=== PATIENT | male | born 1960 | race Caucasian/White ===

== ENCOUNTER → 2017-06-12 | Outpatient (CLI) | payer BC ==
[~2017-06-12] MED LIST: AMLO-114 PO; BYS5 PO; LOSA1TAB38 PO; MULT-506 PO; PANT40TA PO; PRLSR20 PO
--- NOTE | 2017-06-12 13:32 | DIAGNOSTIC IMAGING REPORT ---
CHEST 2 VIEWS ROUTINE CLINICAL HISTORY: COUGH, HTN COMPARISON STUDY: No previous studies for comparison. FINDINGS: The cardiac and mediastinal contours are normal. There is no evidence of focal pulmonary consolidation. There is no evidence of failure. No pleural effusions are visualized.[ IMPRESSION: No active disease in the chest. Electronically signed by: Robert Fallon M.D. 06/12/2017 1:31 PM Dictated Date/Time: 06/12/2017 1:31 PM
== END | disposition home or self-care (01) ==
LOC: C.RAD 12:59
PROVIDERS: ATTEND Nurse Practitioner
DX: I10 Essential (primary) hypertension (principal); R05 Cough

== ENCOUNTER 2017-06-14 04:44 | Inpatient (IN) | payer BC ==
[~2017-06-14] VITALS: Ht 177.8 cm; Wt 112.1 kg
[~2017-06-14 04:44] MED LIST changes: -AMLO-114 PO; -PRLSR20 PO
[2017-06-14] MEDS ORDERED: SODIUM CHLORIDE 0.9% 1000ML 1,000 ML IV STA (04:54)
[2017-06-14] MEDS ORDERED: ONDANSETRON INJ 2 MG/ML 2 ML VIAL IV STA (04:54)
[2017-06-14] MEDS ORDERED: HYDROmorphone INJ 0.5 MG/0.5 ML SYR IV STA (04:54)
[2017-06-14] MEDS ORDERED: OPTIRAY 320 IV PRN (05:00)
[2017-06-14] MEDS ORDERED: PRLSR20 PO (05:10)
[2017-06-14] MEDS ORDERED: AMLO-114 PO (05:11)
[2017-06-14 05:29] LABS: BASO % 0.2 %; BASO ABS # 0.02 K/uL (0-0.2); COMPLETE YES; EOS % 0.8 %; HEMATOCRIT 45.8 % (42-52); IG% 0.1 %; LYMPH % 17.9 %; LYMPH ABS # 1.61 K/uL (1.2-3.4); MEAN CELL VOLUME 88.2 fL (80-100); MEAN CORPUSCULAR HEMOGLOBIN 31.4 pg (25-34); MEAN CORPUSCULAR HGB CONC 35.6 g/dl (32-36); MEAN PLATELET VOLUME 9.3 fL (7.4-10.4); MONO % 9.6 %; NEUT % 71.4 %; PLATELET COUNT 253 K/uL (130-400); RED BLOOD COUNT 5.19 M/uL (4.7-6.1); WHITE BLOOD COUNT 8.98 K/uL (4.8-10.8)
[2017-06-14 05:30] LABS: URINE APPEARANCE CLEAR (CLEAR); URINE BILIRUBIN NEG (NEG); URINE COLOR DK YELLOW; URINE NITRITE NEG (NEG); URINE SPECIFIC GRAVITY 1.027 (1.000-1.030); UROBILINOGEN NEG (NEG); ZZUR CULT IF INDIC CLEAN CATCH NO
[2017-06-14 05:36] LABS: MANUAL MICROSCOPIC REQUIRED? NO; REVIEW REQ? NO
[2017-06-14 05:48] LABS: BUN/CREATININE RATIO 21.1 (10-20); CALCIUM 9.2 mg/dl (8.5-10.1); CREATININE 1.02 mg/dl (0.60-1.40); MAGNESIUM 2.5 mg/dl (1.8-2.4); POTASSIUM 3.7 mmol/L (3.5-5.1)
--- NOTE | 2017-06-14 06:29 | EMERGENCY ROOM VISIT NOTE ---
History Report prepared by Karol: Kayce Jacques Under the Supervision of: Dr. Sirena Escalera M.D. First contact with patient: 04:50 Chief Complaint: ABDOMINAL PAIN Stated Complaint: SEVERE PAIN IN ABDOMEN- FULL FEELING History of Present Illness The patient is a 57 year old male who presents to the Emergency Room with complaints of persistent abdominal pain starting yesterday. He describes the pain as a pressure. It started yesterday morning. He is passing gas and belching. He feels like his stomach is not emptying. He induced vomiting 3 times yesterday. His last bowel movement was diarrhea yesterday. He denies any bloody stools. He notes that he recently finished a course of antibiotics for pneumonia. His coughing is improved, but he is still having periodic coughing fits. His cough is productive of a thick white sputum. He notes that he got his flu shot 2 days ago. He had a cholecystectomy at age 26. He denies any history of pancreatitis or diverticulitis. He admits to occasional alcohol use. He has had a colonoscopy in the past 6 months which showed a couple small polyps. Source of History: patient Onset: yesterday Position: abdomen Quality: pressure Timing: other (persistent) Associated Symptoms: + cough, + vomiting, + diarrhea, No hematochezia Note: Pt reports belching, passing gas. Review of Systems See HPI for pertinent positives & negatives. A total of 10 systems reviewed and were otherwise negative. Past Medical & Surgical Medical Problems: (1) Cholecystectomy (2) ESOPHAGEAL REFLUX (3) GOUT NOS (4) HYPERTENSION NOS Family History Cancer Hypertension Social History Smoking Status: Never Smoker Marital Status: Housing Status: lives with family Occupation Status: employed Current/Historical Medications Scheduled Amlodipine (Norvasc), 10 MG PO DAILY Losartan Potassium (Cozaar), 100 MG PO DAILY Omeprazole (Prilosec), 40 MG PO DAILY Allergies Coded Allergies: Allopurinol (Verified Adverse Reaction, Unknown, Elevated liver panels., 06/14/17) Morphine (Verified Adverse Reaction, Unknown, slows heart rate, 06/14/17) Physical Exam Vital Signs Date Time Temp Pulse Resp B/P (MAP) Pulse Ox O2 Delivery O2 Flow Rate FiO2 06/14/17 07:02 81 16 131/69 97 Room Air 06/14/17 06:13 80 16 142/82 95 Room Air 06/14/17 05:13 89 06/14/17 04:47 37.2 104 18 162/108 96 Room Air Physical Exam Vital signs reviewed. General: Well-appearing male, in no significant distress. HEENT: No scleral icterus, PERRLA, neck supple. Atraumatic. Cardiovascular: Regular rate and rhythm, no extra sounds. Pulmonary: Clear to auscultation bilaterally, normal work of breathing. Abdomen: Soft, nontender, distended, positive tympany, positive bowel sounds. Musculoskeletal: Atraumatic, no peripheral edema. Neurologic: Patient awake alert and oriented x 3 Skin: Warm, dry, no rash Medical Decision & Procedures ER Provider Diagnostic Interpretation: Radiology results as stated below per my review and [facility] radiologist interpretation: CT Abdomen & Pelvis with Contrast: Findings consistent with small bowel obstruction. Multiple mildly dilated loops of small bowel with air-fluid levels. Gradual transition to decompressed distal small bowel in mid lower abdomen where there is mild bowel wall thickening. Small amount of free fluid. No free air. Focal region of mild left basilar nodularity measure up to 4 mm, likely infectious/inflammatory. Post cholecystectomy. Mild common bile duct dilatation which may be physiologic post cholecystectomy. Renal hypodensities, likely cysts. Mild left renal scarring. Colonic diverticulosis without evidence of acute diverticulitis. Appendix is normal in caliber. Fat filled umbilical hernia. No acute osseous finding. Laboratory Results Test 06/14/17 05:00 Urine Color DK YELLOW Urine Appearance CLEAR (CLEAR) Urine pH 5.0 (4.5-7.5) Urine Specific Adrian 1.027 (1.000-1.030) Urine Protein NEG (NEG) Urine Glucose (UA) NEG (NEG) Urine Ketones TRACE (NEG) Urine Occult Blood NEG (NEG) Urine Nitrite NEG (NEG) Urine Bilirubin NEG (NEG) Urine Urobilinogen NEG (NEG) Urine Leukocyte Esterase NEG (NEG) Magnesium Level 2.5 mg/dl (1.8-2.4) Total Bilirubin 0.6 mg/dl (0.2-1) Direct Bilirubin 0.1 mg/dl (0-0.2) Aspartate Amino Transf (AST/SGOT) 20 U/L (15-37) Alanine Aminotransferase (ALT/SGPT) 56 U/L (12-78) Alkaline Phosphatase 122 U/L (45-117) Total Protein 7.8 gm/dl (6.4-8.2) Albumin 4.2 gm/dl (3.4-5.0) Lipase 81 U/L (73-393) Laboratory results per my review. Medications Administered Medications (Trade) Dose Ordered Sig/Gilbert Route Start Time Stop Time Status Last Admin Dose Admin Sodium Chloride 1,000 ml @ 125 mls/hr Q8H STAT IV 06/14/17 04:54 06/14/17 10:11 DC 06/14/17 05:07 125 MLS/HR Ondansetron HCl (Zofran Inj) 4 mg NOW STAT IV 06/14/17 04:54 06/14/17 04:57 DC 06/14/17 05:08 4 MG Hydromorphone HCl (Dilaudid Inj) 0.5 mg NOW STAT IV 06/14/17 04:54 06/14/17 04:57 DC 06/14/17 05:09 0.5 MG Metoclopramide HCl (Reglan Inj) 10 mg NOW STAT IV 06/14/17 06:43 06/14/17 06:44 DC 06/14/17 06:59 10 MG ED Course 0451: Past medical records reviewed. The patient was evaluated in room A10. A complete history and physical examination was performed. 0454: Dilaudid Inj 0.5 mg IV, Zofran Inj 4 mg IV, NSS 1000 ml @ 125 mls/hr IV. 0643: Reglan Inj 10 mg IV. 0705: Upon reevaluation, the patient is resting comfortably. I discussed laboratory and radiographic results with him. He verbalized agreement of the treatment plan. The patient will be evaluated for further management and care. 0724: I reviewed the patient's case with [place]. Garza, [facility]. He will evaluate the patient for further management. Medical Decision Differential diagnosis: Etiologies such as appendicitis, diverticulitis, PUD, biliary pathology, UTI, pancreatitis, obstruction, mesenteric ischemia, aortic pathology, infections, inflammatory bowel disease, renal colic, as well as others were entertained. This patient was evaluated and appeared to be in no significant distress. IV access was obtained and laboratory work was drawn. Patient was hydrated with normal saline solution. He was given IV Dilaudid and Zofran for his discomfort. Physical examination is consistent with a distended abdomen and positive tympany. CT scan abdomen and pelvis is consistent with a small bowel obstruction. There appears to be a distended stomach. NG tube was placed to low intermittent wall suction. KUB x-ray confirms placement in the stomach. Patient was given IV Reglan. Laboratory work is fairly unrevealing. The patient's case was discussed with Dr. Garza of the hospitalist service. He' ll be evaluated for further management. Patient and are aware of plan and agree. Medication Reconcilliation Current Medication List: was personally reviewed by me Blood Pressure Screening Patient's blood pressure: Elevated blood pressure Blood pressure disposition: Elevated BP felt to be situational Consults Time Called: [phone] Consulting Physician: Dr. Garza, [facility] [place] Returned Call: [phone] I reviewed the patient's case with him. He will evaluate the patient for further management. Impression Primary Impression: SBO (small bowel obstruction) Scribe Attestation The scribe's documentation has been prepared under my direction and personally reviewed by me in its entirety. I confirm that the note above accurately reflects all work, treatment, procedures, and medical decision making performed by me. Departure Information Dispostion Being Evaluated By Hospitalist Referrals Tona Donahue CRNP (PCP) Patient Instructions My [facility]
[2017-06-14] MEDS ORDERED: METOCLOPRAMIDE HCL INJ 5 MG/ML 2 ML VIAL IV STA (06:43)
--- NOTE | 2017-06-14 07:07 | DIAGNOSTIC IMAGING REPORT ---
CT ABD/PELVIS IV CONTRAST ONLY CLINICAL HISTORY: Abdominal pain and distention COMPARISON STUDY: 07/25/2013 TECHNIQUE: Following the IV administration of 120 mL of Optiray-320, CT scan of the abdomen and pelvis was performed from the lung bases to the proximal femurs. Images are reviewed in the axial, sagittal, and coronal planes. IV contrast was administered without complication. A dose lowering technique was utilized adhering to the principles of ALARA. CT DOSE: 1271.66 mGy.cm FINDINGS: Lower chest: There are mild dependent atelectatic changes. There are tree-in-bud opacities within the left lower lobe, likely secondary to a bronchiolitis. Liver: There is mild hepatic steatosis. No focal masses are visualized. Gallbladder: Surgically absent Spleen: Normal in size and attenuation. Pancreas: Unremarkable. Adrenal glands: Unremarkable. Kidneys: There is a 21 mm left renal hypodensity and 14 mm right renal hypodensity. These statistically represent cysts. Bowel: There are mildly dilated fluid-filled small bowel loops. The distal ileum is of normal caliber. There is minimal small bowel wall thickening at the site of transition. The findings are consistent with a mild partial small bowel obstruction. There is a small amount of fluid in the region the right paracolic gutter. There are scattered colonic diverticula present. There is no acute diverticulitis. There is no evidence of acute appendicitis. Peritoneum: There is minimal free pelvic fluid. No free air is visualized. There is a fat-containing umbilical hernia. Vasculature: The abdominal aorta is normal in course and caliber. Adenopathy: None. Pelvic viscera: The bladder, and pelvic viscera are unremarkable. Skeletal structures: No destructive osseous lesions are seen. IMPRESSION: 1. Mildly dilated fluid-filled small bowel loops with a distal transition zone. This is indicative of a partial small bowel obstruction. There is mild small bowel wall thickening at the site of transition, likely secondary to a nonspecific enteritis. 2. Diverticulosis. No evidence of acute diverticulitis 3. Normal appendix 4. Fat-containing umbilical hernia 5. Small amount of free fluid 6. Tree-in-bud opacities within the left lower lobe, likely infectious/inflammatory Electronically signed by: Robert Fallon M.D. 06/14/2017 7:06 AM Dictated Date/Time: 06/14/2017 6:57 AM
[2017-06-14] MEDS ORDERED: ONDANSETRON INJ 2 MG/ML 2 ML VIAL IV PRN (08:00)
--- NOTE | 2017-06-14 08:23 | DIAGNOSTIC IMAGING REPORT ---
KUB HISTORY: NGT placement COMPARISON: None. FINDINGS: Nasogastric tube terminates in the proximal stomach. Multiple mildly distended loops of small bowel are again noted within the abdomen. Contrast within the renal collecting systems due to the recent CT examination. Cholecystectomy. No renal calculi. No ureteral calculi. No pneumoperitoneum or pneumatosis. IMPRESSION: 1. Nasogastric tube terminates in the stomach. 2. Persistent small bowel obstruction pattern. Electronically signed by: Marco A Yee M.D. 06/14/2017 8:22 AM Dictated Date/Time: 06/14/2017 8:21 AM
[2017-06-14] MEDS: SODIUM CHLORIDE 0.9% 1000ML 1,000 ML IV SCH ×2 (08:49→18:18)
--- NOTE | 2017-06-14 09:03 | History and Physical ---
History & Physical Date & Time of Service: Jun 14, 2017 at 08:54 Chief Complaint: Severe Pain In Abdomen- Full Feeling Primary Care Physician: Tona Donahue CRNP History of Present Illness Source: patient, spouse () Pt is a 57 yo male who presents to the ER with complaints of persistent abdominal pain starting two night ago. Pt states worsening distention, passing gas and belching continuously yesterday. He states to provide relief, he induced vomiting by sticking his fingers down his throat. He states his last bowel movement was yesterday and was soft in nature. Pt does have hx of cholecystecomy when he was 26 yo. He notes he finished course of antibx for a PNA couple week s ago and also hacing his flu shot 2 days ago. Pt has past medical hx of HTN, gout. He has had a colonoscopy in the past 6 months which showed a couple small polyps. Past Medical/Surgical History Medical Problems: (1) Cholecystectomy Status: Resolved (2) ESOPHAGEAL REFLUX Status: Chronic (3) GOUT NOS Status: Chronic (4) HYPERTENSION NOS Status: Chronic Family History Cancer Hypertension Social History Smoking Status: Never Smoker Marital Status: Occupational Status: employed Immunizations History of Influenza Vaccine: Yes Influenza Vaccine Date: Feb 22, 2013 History of Tetanus Vaccine?: Yes Tetanus Immunization Date: Jul 25, 2005 History of Pneumococcal: No History of Hepatitis B Vaccine: No Multi-Drug Resistant Organisms History of MDRO: No Allergies Coded Allergies: Allopurinol (Verified Adverse Reaction, Unknown, Elevated liver panels., 06/14/17) Morphine (Verified Adverse Reaction, Unknown, slows heart rate, 06/14/17) Home Medications Scheduled Amlodipine (Norvasc), 10 MG PO DAILY Losartan Potassium (Cozaar), 100 MG PO DAILY Omeprazole (Prilosec), 40 MG PO DAILY Review of Systems Constitutional: No fever, No chills, No sweats, No weakness, No fatigue Respiratory: No cough, No sputum, No wheezing, No shortness of breath, No dyspnea on exertion, No dyspnea at rest Cardiovascular: No chest pain, No orthopnea, No PND, No edema Abdomen: + nausea, No pain, No vomiting, No diarrhea, No constipation Musculoskeletal: No joint pain, No muscle pain, No calf pain Genitourinary - Male: No hematuria, No dysuria, No urinary frequency, No urinary urgency Neurologic: No memory loss, No paralysis, No weakness, No numbness/tingling Psychiatric: No depression symptoms, No anhedonism, No anxiety, No insomnia Endocrine: No fatigue, No excessive thirst Hematologic / Lymphatic: No abnormal bleeding/bruising, No clotting problems Integumentary: No rash, No itch Allergic / Immunologic: No environmental allergies, No seasonal allergies Physical Exam Vital Signs Date Time Temp Pulse Resp B/P (MAP) Pulse Ox O2 Delivery O2 Flow Rate FiO2 06/14/17 08:50 76 16 164/104 94 Room Air 06/14/17 07:02 81 16 131/69 97 Room Air 06/14/17 06:13 80 16 142/82 95 Room Air 06/14/17 05:13 89 06/14/17 04:47 37.2 104 18 162/108 96 Room Air General Appearance: WD/WN, no apparent distress Head: normocephalic, atraumatic Eyes: normal inspection, PERRL, EOMI, sclerae normal Neck: supple, no adenopathy, thyroid normal, no JVD Respiratory/Chest: chest non-tender, lungs clear, normal breath sounds, no respiratory distress Cardiovascular: regular rate, rhythm, no edema, no gallop, no JVD Abdomen/GI: normal bowel sounds, non tender, no pulsatile mass, + distended Back: normal inspection, no CVA tenderness, no muscle spasm, normal range of motion Neurologic/Psych: no motor/sensory deficits, alert, normal mood/affect, oriented x 3 Skin: normal color, warm/dry, no rash Lymphatic: no adenopathy Diagnostics Laboratory Results Results Past 24 Hours Test 06/14/17 05:00 Range/Units White Blood Count 8.98 4.8-10.8 K/uL Red Blood Count 5.19 4.7-6.1 M/uL Hemoglobin 16.3 14.0-18.0 g/dL Hematocrit 45.8 42-52 % Mean Corpuscular Volume 88.2 80-100 fL Mean Corpuscular Hemoglobin 31.4 25-34 pg Mean Corpuscular Hemoglobin Concent 35.6 32-36 g/dl Platelet Count 253 130-400 K/uL Mean Platelet Volume 9.3 7.4-10.4 fL Neutrophils (%) (Auto) 71.4 % Lymphocytes (%) (Auto) 17.9 % Monocytes (%) (Auto) 9.6 % Eosinophils (%) (Auto) 0.8 % Basophils (%) (Auto) 0.2 % Neutrophils # (Auto) 6.41 1.4-6.5 K/uL Lymphocytes # (Auto) 1.61 1.2-3.4 K/uL Monocytes # (Auto) 0.86 0.11-0.59 K/uL Eosinophils # (Auto) 0.07 0-0.5 K/uL Basophils # (Auto) 0.02 0-0.2 K/uL RDW Standard Deviation 42.7 36.4-46.3 fL RDW Coefficient of Variation 13.2 11.5-14.5 % Immature Granulocyte % (Auto) 0.1 % Immature Granulocyte # (Auto) 0.01 0.00-0.02 K/uL Urine Color DK YELLOW Urine Appearance CLEAR CLEAR Urine pH 5.0 4.5-7.5 Urine Specific Danese 1.027 1.000-1.030 Urine Protein NEG NEG Urine Glucose (UA) NEG NEG Urine Ketones TRACE NEG Urine Occult Blood NEG NEG Urine Nitrite NEG NEG Urine Bilirubin NEG NEG Urine Urobilinogen NEG NEG Urine Leukocyte Esterase NEG NEG Sodium Level 142 136-145 mmol/L Potassium Level 3.7 3.5-5.1 mmol/L Chloride Level 106 98-107 mmol/L Carbon Dioxide Level 27 21-32 mmol/L Anion Gap 9.0 3-11 mmol/L Blood Urea Nitrogen 22 7-18 mg/dl Creatinine 1.02 0.60-1.40 mg/dl Est Creatinine Clear Calc Drug Dose 101.4 ml/min Estimated GFR () 94.8 Estimated GFR (Non- 81.8 BUN/Creatinine Ratio 21.1 10-20 Random Glucose 146 70-99 mg/dl Calcium Level 9.2 8.5-10.1 mg/dl Magnesium Level 2.5 1.8-2.4 mg/dl Total Bilirubin 0.6 0.2-1 mg/dl Direct Bilirubin 0.1 0-0.2 mg/dl Aspartate Amino Transf (AST/SGOT) 20 15-37 U/L Alanine Aminotransferase (ALT/SGPT) 56 12-78 U/L Alkaline Phosphatase 122 45-117 U/L Total Protein 7.8 6.4-8.2 gm/dl Albumin 4.2 3.4-5.0 gm/dl Lipase 81 73-393 U/L Impression Assessment and Plan Pt is a 57 yo male with hx of gout, HTN who presents with 2 day hx of abdominal distention, belching, nausea Partial SBO likely related to adhesions from open cholecystectomy. Will admit to med/surg floor Keep NPO at this time Start on IVF NS at 100 cc/hr Consult general surg for further recs Pt aware may need NG tube if worsening sx KUB in AM Gout Hold Uloric at this time HTN Controlled Hold meds at this time GI ppx with IV protonix 40 mg daily DVT ppx with SCDs Pt is FULL CODE VTE Prophylaxis VTE Risk Assessment Done? Y/N: Yes Risk Level: Moderate
[2017-06-14 09:50] VITALS: BP 151/98; PULSE 77; TEMP 36.8; O2SAT 94
[2017-06-14 10:01] VITALS: BP 151/98; PULSE 77; TEMP 36.8; Ht 177.8 cm; Wt 112.1 kg
[2017-06-14] MEDS: PANTOprazole INJ 40 MG in SYRINGE 0 ML IV SCH (10:52)
[2017-06-14] MEDS ORDERED: KETOROLAC TROMETHAMINE 15 MG/ML VIAL IM PRN (11:15)
[2017-06-14] MEDS ORDERED: NURSING VERBAL MED ORDER ONE ×2 (11:30→22:15)
[2017-06-14] MEDS: KETOROLAC TROMETHAMINE 15 MG/ML VIAL IV. PRN ×2 (11:39→22:20)
--- NOTE | 2017-06-14 12:12 | Medical Consult ---
Consultation Date of Consultation: Jun 14, 2017. Attending Physician: Reason for Consultation: Partial Small Bowel Obstruction History of Present Illness 57-year-old male with past medical history significant for Hypertension, Gout, Esophageal Reflux presented to [facility] ED with 2 day history of severe abdominal pain. Patient states that the abdominal continued to worsen at home- developed a very full sensation. Pt decided to induce vomiting at home which did not seem to help with his symptoms. He did have a bowel movement yesterday, which he reports was soft. His last meal was yesterday at 1AM. He reports that he had a colonoscopy roughly 6 months ago - per pt had a few small polyps removed. He denies nausea currently. Reports that abdominal pain has improved since presenting to ED. Patient recently completed course of antibiotics for PNA. Patient was previously seen by GI during a hospital admission in Jun 2013 for possible gastric outlet obstruction. During that stay patient had NG tube placed and an EGD performed by Dr. Freeman that showed mild esophagitis, retained food residue in stomach, but normal gastric lining and normal duodenum. No evidence of obstruction, stricture or mass. Past Medical/Surgical History 1. Small Bowel Obstruction 2. Esophageal Reflux 3. Gout 4. Hypertension Surgical History 1. Cholecystectomy at 26 years of age. Family History Cancer Hypertension Social History Smoking Status: Never Smoker Smokeless Tobacco Use: Unknown Marital Status: Housing Status: lives with family Occupation Status: employed Allergies Coded Allergies: Allopurinol (Verified Adverse Reaction, Unknown, Elevated liver panels., 06/14/17) Morphine (Verified Adverse Reaction, Unknown, slows heart rate, 06/14/17) Current Inpatient Medications Current Inpatient Medications Medications (Trade) Dose Ordered Sig/Gilbert Route Start Time Stop Time Status Last Admin Dose Admin Sodium Chloride 1,000 ml @ 125 mls/hr Q8H STAT IV 06/14/17 04:54 06/14/17 12:53 06/14/17 05:07 125 MLS/HR Ioversol (Optiray 320) 100 ml UD PRN IV 06/14/17 05:00 06/18/17 04:59 Ondansetron HCl (Zofran Inj) 4 mg Q6H PRN IV 06/14/17 08:00 07/14/17 07:59 UNV Sodium Chloride 1,000 ml @ 100 mls/hr Q10H IV 06/14/17 08:15 07/14/17 08:14 UNV Review of Systems Constitutional: No fever Cardiovascular: No chest pain Abdomen: + pain, No nausea Physical Exam Date Time Temp Pulse Resp B/P (MAP) Pulse Ox O2 Delivery O2 Flow Rate FiO2 06/14/17 07:02 81 16 131/69 97 Room Air 06/14/17 06:13 80 16 142/82 95 Room Air 06/14/17 05:13 89 06/14/17 04:47 37.2 104 18 162/108 96 Room Air NG tube in place. General Appearance: WD/WN Head: normocephalic, atraumatic Abdomen/GI: non tender, + distended, + fecal occult blood, + pertinent finding (patient reports abdominal pain in both RLQ and LLQ. Mildly tender to palpation. ) Neurologic/Psych: alert, oriented x 3 Skin: normal color, warm/dry Laboratory Results Last 24 Hours Test 06/14/17 05:00 White Blood Count 8.98 K/uL Red Blood Count 5.19 M/uL Hemoglobin 16.3 g/dL Hematocrit 45.8 % Mean Corpuscular Volume 88.2 fL Mean Corpuscular Hemoglobin 31.4 pg Mean Corpuscular Hemoglobin Concent 35.6 g/dl Platelet Count 253 K/uL Mean Platelet Volume 9.3 fL Neutrophils (%) (Auto) 71.4 % Lymphocytes (%) (Auto) 17.9 % Monocytes (%) (Auto) 9.6 % Eosinophils (%) (Auto) 0.8 % Basophils (%) (Auto) 0.2 % Neutrophils # (Auto) 6.41 K/uL Lymphocytes # (Auto) 1.61 K/uL Monocytes # (Auto) 0.86 K/uL Eosinophils # (Auto) 0.07 K/uL Basophils # (Auto) 0.02 K/uL RDW Standard Deviation 42.7 fL RDW Coefficient of Variation 13.2 % Immature Granulocyte % (Auto) 0.1 % Immature Granulocyte # (Auto) 0.01 K/uL Urine Color DK YELLOW Urine Appearance CLEAR Urine pH 5.0 Urine Specific Mchenry 1.027 Urine Protein NEG Urine Glucose (UA) NEG Urine Ketones TRACE Urine Occult Blood NEG Urine Nitrite NEG Urine Bilirubin NEG Urine Urobilinogen NEG Urine Leukocyte Esterase NEG Sodium Level 142 mmol/L Potassium Level 3.7 mmol/L Chloride Level 106 mmol/L Carbon Dioxide Level 27 mmol/L Anion Gap 9.0 mmol/L Blood Urea Nitrogen 22 mg/dl Creatinine 1.02 mg/dl Est Creatinine Clear Calc Drug Dose 101.4 ml/min Estimated GFR () 94.8 Estimated GFR (Non- 81.8 BUN/Creatinine Ratio 21.1 Random Glucose 146 mg/dl Calcium Level 9.2 mg/dl Magnesium Level 2.5 mg/dl Total Bilirubin 0.6 mg/dl Direct Bilirubin 0.1 mg/dl Aspartate Amino Transf (AST/SGOT) 20 U/L Alanine Aminotransferase (ALT/SGPT) 56 U/L Alkaline Phosphatase 122 U/L Total Protein 7.8 gm/dl Albumin 4.2 gm/dl Lipase 81 U/L CT ABD/PELVIS IV CONTRAST ONLY CLINICAL HISTORY: Abdominal pain and distention COMPARISON STUDY: 07/25/2013 TECHNIQUE: Following the IV administration of 120 mL of Optiray-320, CT scan of the abdomen and pelvis was performed from the lung bases to the proximal femurs. Images are reviewed in the axial, sagittal, and coronal planes. IV contrast was administered without complication. A dose lowering technique was utilized adhering to the principles of ALARA. CT DOSE: 1271.66 mGy.cm FINDINGS: Lower chest: There are mild dependent atelectatic changes. There are tree-in-bud opacities within the left lower lobe, likely secondary to a bronchiolitis. Liver: There is mild hepatic steatosis. No focal masses are visualized. Gallbladder: Surgically absent Spleen: Normal in size and attenuation. Pancreas: Unremarkable. Adrenal glands: Unremarkable. Kidneys: There is a 21 mm left renal hypodensity and 14 mm right renal hypodensity. These statistically represent cysts. Bowel: There are mildly dilated fluid-filled small bowel loops. The distal ileum is of normal caliber. There is minimal small bowel wall thickening at the site of transition. The findings are consistent with a mild partial small bowel obstruction. There is a small amount of fluid in the region the right paracolic gutter. There are scattered colonic diverticula present. There is no acute diverticulitis. There is no evidence of acute appendicitis. Peritoneum: There is minimal free pelvic fluid. No free air is visualized. There is a fat-containing umbilical hernia. Vasculature: The abdominal aorta is normal in course and caliber. Adenopathy: None. Pelvic viscera: The bladder, and pelvic viscera are unremarkable. Skeletal structures: No destructive osseous lesions are seen. IMPRESSION: 1. Mildly dilated fluid-filled small bowel loops with a distal transition zone. This is indicative of a partial small bowel obstruction. There is mild small bowel wall thickening at the site of transition, likely secondary to a nonspecific enteritis. 2. Diverticulosis. No evidence of acute diverticulitis 3. Normal appendix 4. Fat-containing umbilical hernia 5. Small amount of free fluid 6. Tree-in-bud opacities within the left lower lobe, likely infectious/inflammatory Electronically signed by: Robert Fallon M.D. 06/14/2017 7:06 AM Dictated Date/Time: 06/14/2017 6:57 AM Assessment & Plan 57-year-old male partial SBO on CT scan. Patient admitted to Medicine's service. NG tube in place. Patient NPO. as above/pt seen. pt adamant that NGT be removed. literally zero out of tube despite KUB indicating it's in the stomach. will pull NGT and see how he does over next 24 hours the pain he came in with has resolved. no BM yet. if no bowel function by tomorrow AM will obtain a SBFT. if he has bowel fx will recheck KUB cont NPO and IVF will follow along closely.
[2017-06-14 14:58] VITALS: BP 145/82; PULSE 85; TEMP 37.1; O2SAT 94
[2017-06-14] MEDS ORDERED: SODIUM CHLORIDE 0.9% 500ML 500 ML IV STA (19:46)
[2017-06-14] MEDS: SODIUM CHLORIDE 0.65% NA SOLN 45 ML (OCEAN) ONE ×2 (22:16→22:21)
[2017-06-14] MEDS ORDERED: SODIUM CHLORIDE 0.65% NA SOLN 45 ML (OCEAN) PRN (22:30)
[2017-06-14 23:42] VITALS: BP 163/82; PULSE 71; TEMP 37; O2SAT 95
[2017-06-15] MEDS: SODIUM CHLORIDE 0.9% 1000ML 1,000 ML IV SCH ×2 (04:20→16:00)
[2017-06-15 06:47] LABS: BASO % 0.4 %; BASO ABS # 0.02 K/uL (0-0.2); COMPLETE YES; EOS % 3.3 %; HEMATOCRIT 37.1 % (42-52); IG% 0.2 %; LYMPH % 26.6 %; LYMPH ABS # 1.36 K/uL (1.2-3.4); MEAN CELL VOLUME 88.8 fL (80-100); MEAN CORPUSCULAR HEMOGLOBIN 30.6 pg (25-34); MEAN CORPUSCULAR HGB CONC 34.5 g/dl (32-36); MONO % 10.4 %; NEUT % 59.1 %; PLATELET COUNT 183 K/uL (130-400); RED BLOOD COUNT 4.18 M/uL (4.7-6.1); WHITE BLOOD COUNT 5.12 K/uL (4.8-10.8)
[2017-06-15 06:58] VITALS: BP 142/87; PULSE 58; TEMP 36.6; O2SAT 97
[2017-06-15 07:21] LABS: BUN/CREATININE RATIO 19.1 (10-20); CALCIUM 8.1 mg/dl (8.5-10.1); CREATININE 0.72 mg/dl (0.60-1.40); POTASSIUM 3.3 mmol/L (3.5-5.1)
[2017-06-15 07:30] VITALS: O2SAT 97
--- NOTE | 2017-06-15 07:53 | Surgery Progress Note ---
Surgery Progress Note Date of Service Jun 15, 2017. Subjective + feeling well, + flatus, + pain controlled, No complaints, No bowel movement, No nausea, No vomiting Objective Vital Signs: Date Time Temp Pulse Resp B/P (MAP) Pulse Ox O2 Delivery O2 Flow Rate FiO2 06/15/17 06:58 36.6 58 16 142/87 (105) 97 Room Air 06/14/17 23:45 Room Air 06/14/17 23:42 37.0 71 16 163/82 (109) 95 Room Air 06/14/17 16:32 Room Air 06/14/17 14:58 37.1 85 18 145/82 (103) 94 Room Air 06/14/17 10:01 36.8 77 16 151/98 Room Air 06/14/17 09:50 36.8 77 16 151/98 (115) 94 Room Air 06/14/17 09:42 88 17 163/98 94 06/14/17 09:33 88 17 163/98 94 Room Air 06/14/17 08:50 76 16 164/104 94 Room Air General Appearance: WD/WN, no apparent distress Respiratory/Chest: no respiratory distress, no accessory muscle use Abdomen: non tender, soft Laboratory Results: Results Past 24 Hours Test 06/15/17 06:19 Range/Units White Blood Count 5.12 4.8-10.8 K/uL Red Blood Count 4.18 4.7-6.1 M/uL Hemoglobin 12.8 14.0-18.0 g/dL Hematocrit 37.1 42-52 % Mean Corpuscular Volume 88.8 80-100 fL Mean Corpuscular Hemoglobin 30.6 25-34 pg Mean Corpuscular Hemoglobin Concent 34.5 32-36 g/dl Platelet Count 183 130-400 K/uL Mean Platelet Volume 9.0 7.4-10.4 fL Neutrophils (%) (Auto) 59.1 % Lymphocytes (%) (Auto) 26.6 % Monocytes (%) (Auto) 10.4 % Eosinophils (%) (Auto) 3.3 % Basophils (%) (Auto) 0.4 % Neutrophils # (Auto) 3.03 1.4-6.5 K/uL Lymphocytes # (Auto) 1.36 1.2-3.4 K/uL Monocytes # (Auto) 0.53 0.11-0.59 K/uL Eosinophils # (Auto) 0.17 0-0.5 K/uL Basophils # (Auto) 0.02 0-0.2 K/uL RDW Standard Deviation 41.2 36.4-46.3 fL RDW Coefficient of Variation 12.8 11.5-14.5 % Immature Granulocyte % (Auto) 0.2 % Immature Granulocyte # (Auto) 0.01 0.00-0.02 K/uL Sodium Level 141 136-145 mmol/L Potassium Level 3.3 3.5-5.1 mmol/L Chloride Level 107 98-107 mmol/L Carbon Dioxide Level 28 21-32 mmol/L Anion Gap 6.0 3-11 mmol/L Blood Urea Nitrogen 14 7-18 mg/dl Creatinine 0.72 0.60-1.40 mg/dl Est Creatinine Clear Calc Drug Dose 143.6 ml/min Estimated GFR () 120.9 Estimated GFR (Non- 104.3 BUN/Creatinine Ratio 19.1 10-20 Random Glucose 107 70-99 mg/dl Calcium Level 8.1 8.5-10.1 mg/dl Assessment & Plan 57-year-old male Partial Small Bowel Obstruction Patient doing very well this AM. No new concerns overnight. Patient remains afebrile. Pain is controlled. Passing flatus, no BM yet. NG tube out- denies nausea or vomiting. Patient to remain NPO. SBFT this AM.
[2017-06-15] MEDS: PANTOprazole INJ 40 MG in SYRINGE 0 ML IV SCH (13:14)
--- NOTE | 2017-06-15 14:58 | DIAGNOSTIC IMAGING REPORT ---
SMALL BOWEL STUDY CLINICAL HISTORY: 57 years-old Male presenting with Partial small bowel obstruction. TECHNIQUE: An abdominal bonus clerk radiograph was performed. A standard air contrast upper GI series was then performed. Spot images of the esophagus and stomach were obtained in multiple obliquities with upright and prone. The patient then consumed several of thin barium and a small follow-through was performed. Overhead radiographs and spot compression images were obtained. COMPARISON: CT from 06/14/2017. FINDINGS: Initial radiograph of the abdomen demonstrates a paucity of small bowel gas, nonspecific. No gross evidence of free intraperitoneal gas. Few pelvic phleboliths noted. Degenerative changes of the lower lumbar spine may be present. The patient ingested barium without difficulty. The stomach is normal appearing. Normal configuration of the duodenal sweep. No abnormal distention of the duodenum. Proximal jejunum and proximal ileum dilated as seen on recent CT. In the mid abdomen, slightly to the left of midline, apparent caliber change with a kinked configuration. This suggests that lesions in this region. At this site and distally, small bowel is nondistended with distal ileum decompressed. However, no evidence of a complete obstruction as contrast reaches the cecum. Fluoroscopy dosage (mGy): Not available. Fluoroscopy time: 2.4 minutes. Number of fluoroscopic spot images: 28. IMPRESSION: Findings consistent with low-grade partial small bowel obstruction with a transition point suspected in the mid abdomen, where there is a focal kinked configuration. This correlates with the appearance on CT. This is likely secondary to postoperative adhesions given the patient's history of cholecystectomy. Electronically signed by: Mick Burton M.D. 06/15/2017 2:56 PM Dictated Date/Time: 06/15/2017 2:49 PM
[2017-06-15 15:17] VITALS: BP 162/94; PULSE 67; TEMP 37.1; O2SAT 98
--- NOTE | 2017-06-15 15:36 | Hospitalist Progress Note ---
Hospitalist Progress Note Date of Service Jun 15, 2017. (Shakila Bella ., KRISTIE-C) Subjective Pt evaluation today including: conversation w/ patient, conversation w/ family ( at bedside), physical exam, chart review, lab review, review of studies, review of inpatient medication list Pain: None PO Intake: NPO Voiding: no voiding problems Patient reports feeling well. He denies any pain, nausea or vomiting. He states he is passing gas but denies any bowel movements since prior to arrival. 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 The patient denies fevers, chills, sweats, chest pain, palpitations, claudication, cough, wheezing, shortness of breath, nausea, vomiting, abdominal pain, dysuria, hematuria, urinary retention, paralysis, weakness, numbness and tingling. Additional Comments: See HPI for pertinent positives and negatives. All other systems reviewed and negative. (Shakila Bella, KRISTIE-C) Objective Vital Signs Date Time Temp Pulse Resp B/P (MAP) Pulse Ox O2 Delivery O2 Flow Rate FiO2 06/15/17 15:17 37.1 67 18 162/94 (116) 98 Room Air 06/15/17 07:30 97 Room Air 06/15/17 06:58 36.6 58 16 142/87 (105) 97 Room Air 06/14/17 23:45 Room Air 06/14/17 23:42 37.0 71 16 163/82 (109) 95 Room Air 06/14/17 16:32 Room Air (Shakila Bella, KRISTIE-C) Physical Exam Notes: General appearance: +Obese. Well-developed, well-nourished, no apparent distress Head: Normocephalic, atraumatic Eyes: Normal inspection, PERRL, EOMI ENT: Normal ENT inspection, hearing grossly normal, pharynx normal Neck: Supple, no JVD, trachea midline Respiratory/Chest: Lungs clear to auscultation, normal breath sounds, no respiratory distress Cardiovascular: Regular rate & rhythm, no gallop, no murmur Abdomen/GI: +Hypoactive bowel sounds. Non-tender, soft Extremities/Musculoskeletal: Normal inspection, no calf tenderness, no pedal edema Neurological/Psych: Alert, normal mood/affect, oriented x 3 Skin: Normal color, warm/dry, no rash (Shakila Bella .RANDALL) Laboratory Results Last 24 Hours Test 06/15/17 06:19 White Blood Count 5.12 K/uL Red Blood Count 4.18 M/uL Hemoglobin 12.8 g/dL Hematocrit 37.1 % Mean Corpuscular Volume 88.8 fL Mean Corpuscular Hemoglobin 30.6 pg Mean Corpuscular Hemoglobin Concent 34.5 g/dl Platelet Count 183 K/uL Mean Platelet Volume 9.0 fL Neutrophils (%) (Auto) 59.1 % Lymphocytes (%) (Auto) 26.6 % Monocytes (%) (Auto) 10.4 % Eosinophils (%) (Auto) 3.3 % Basophils (%) (Auto) 0.4 % Neutrophils # (Auto) 3.03 K/uL Lymphocytes # (Auto) 1.36 K/uL Monocytes # (Auto) 0.53 K/uL Eosinophils # (Auto) 0.17 K/uL Basophils # (Auto) 0.02 K/uL RDW Standard Deviation 41.2 fL RDW Coefficient of Variation 12.8 % Immature Granulocyte % (Auto) 0.2 % Immature Granulocyte # (Auto) 0.01 K/uL Sodium Level 141 mmol/L Potassium Level 3.3 mmol/L Chloride Level 107 mmol/L Carbon Dioxide Level 28 mmol/L Anion Gap 6.0 mmol/L Blood Urea Nitrogen 14 mg/dl Creatinine 0.72 mg/dl Est Creatinine Clear Calc Drug Dose 143.6 ml/min Estimated GFR () 120.9 Estimated GFR (Non- 104.3 BUN/Creatinine Ratio 19.1 Random Glucose 107 mg/dl Calcium Level 8.1 mg/dl (Shakila Bella .RANDALL) Diagnostic Results Reviewed the following studies and agree with interpretation as follows: Patient Name: BALAJI BOWENS Unit Number: [id number] Dictated: 06/15/171448 Transcribed: 06/15/171448 PBS Printed Date/Time: [~ rep prt dt]/[~ rep prt tm] [~ rep ct labl] - [~ rep ct ivnm] [facility] [place] [address] Dictated: 06/15/171448 Transcribed: 06/15/171448 PBS Printed Date/Time: [~ rep prt dt]/[~ rep prt tm] [~ rep ct labl] - [~ rep ct ivnm] Patient: BALAJI BOWENS Address1: [address] [address] [facility] Rec: [id number] Address2: Acct ID: [id number] [facility] Zip: [place] [address] Date: 1960 Sex: M Room/Bed: [facility] Ref Phy: Tona Donahue CRNP SC: C.JOURNEYMAN CARPENTER Att Phy: Dolores Carrizales DO Report #: [id number] Aliyah Phy: Tona Donahue CRNP Test: SB Admit Phy: Mansoor Garza DRikiORiki Sponge Press Operator: ANDEER Interpreting Phy: Mick Burton MD Diagnosis: SBO Ordering Phy: Geneva Cardona PA-C Service Date: 06/15/17 Admit Date: 06/14/1711/15/17 MNE: [id number] CONF: DICTATED BY: Mick Burton MD]] CC: Tona Donahue CRNP Sowcik, Mallory L., PA-C Stevens, Jessica A., DO Endcc: [~ rep ct add3]] SMALL BOWEL STUDY CLINICAL HISTORY: 57 years-old Male presenting with Partial small bowel obstruction. TECHNIQUE: An abdominal sporting goods salesperson radiograph was performed. A standard air contrast upper GI series was then performed. Spot images of the esophagus and stomach were obtained in multiple obliquities with upright and prone. The patient then consumed several of thin barium and a small follow-through was performed. Overhead radiographs and spot compression images were obtained. COMPARISON: CT from 06/14/2017. FINDINGS: Initial radiograph of the abdomen demonstrates a paucity of small bowel gas, nonspecific. No gross evidence of free intraperitoneal gas. Few pelvic phleboliths noted. Degenerative changes of the lower lumbar spine may be present. The patient ingested barium without difficulty. The stomach is normal appearing. Normal configuration of the duodenal sweep. No abnormal distention of the duodenum. Proximal jejunum and proximal ileum dilated as seen on recent CT. In the mid abdomen, slightly to the left of midline, apparent caliber change with a kinked configuration. This suggests that lesions in this region. At this site and distally, small bowel is nondistended with distal ileum decompressed. However, no evidence of a complete obstruction as contrast reaches the cecum. Fluoroscopy dosage (mGy): Not available. Fluoroscopy time: 2.4 minutes. Number of fluoroscopic spot images: 28. IMPRESSION: Findings consistent with low-grade partial small bowel obstruction with a transition point suspected in the mid abdomen, where there is a focal kinked configuration. This correlates with the appearance on CT. This is likely secondary to postoperative adhesions given the patient's history of cholecystectomy. Electronically signed by: Mick Burton M.D. 06/15/2017 2:56 PM Dictated Date/Time: 06/15/2017 2:49 PM The status of this report is Signed. Draft = Not yet reviewed or approved by Radiologist. Signed = Reviewed and approved by Radiologist. <AttendingPhy>Dolores Carrizales DO</AttendingPhy> <FamilyPhy>Tona Donahue CRNP</FamilyPhy> <PrimaryPhy>Tona Donahue CRNP</PrimaryPhy> <UnitNumber> [id number]</UnitNumber> <VisitNumber>[id number]</VisitNumber> <PatientName> BALAJI BOWENS</PatientName> <DateOfBirth>1960</DateOfBirth> <Location> W</Location> <ServiceDate>06/14/17</ServiceDate> <MNE>ESINDI</MNE> < OrderingPhy>Geneva Cardona PA-C</OrderingPhy> <OrderingPhyMNE>f rep ord dr whitten</OrderingPhyMNE> <DictatingPhyMNE>f rep dict dr whitten</DictatingPhyMNE> < CCListMNE>f rep ct mne</CCListMNE> <AdmittingPhyMNE>f pt admit dr whitten</ AdmittingPhyMNE> <AttendingPhyMNE>f pt attend dr whitten</AttendingPhyMNE> <ConsultingPhyMNE>f pt consult dr whitten</ConsultingPhyMNE> <FamilyPhyMNE>f pt fam dr whitten</FamilyPhyMNE> <OtherPhyMNE>f pt other dr whitten</OtherPhyMNE> < PrimaryPhyMNE>f pt prim care dr whitten</PrimaryPhyMNE> <ReferringPhyMNE>f pt referring dr whitten</ReferringPhyMNE> (Shakila Bella ., PA-C) Assessment and Plan 57 y/o male with a history of HTN, BPH, gout, IBS, GERD and remote history of cholecystectomy who presents with 2 days of abdominal distension, belching and nausea. Partial SBO likely related to adhesions from open cholecystectomy--improving -Admit to med/surg -KUB this am with persistent SBO pattern -No pain, nausea, vomiting. Passing gas. -Start clear liquids -General surgery consulted, appreciate recs: Obtain small bowel follow through -Small bowel study shows low grade partial small bowel obstruction -Continue NSS at 100 cc/hr until has adequate PO intake -Toradol 15 mg IV q6h prn pain HTN--stable -Resume home Norvasc 10 mg PO qd and losartan 100 mg PO qd Gout--stable, no acute flare GERD -Prilosec converted to Protonix DVT prophylaxis -SCDs Code Status -Level I, FULL RESUSCITATION STATUS (Shakila Bella ., PA-C) Reviewed: Pt Seen/Exam by Me (Dolores Carrizales DO) History Pt is feeling improved and awaiting dinner clears. No further abd pain. No chest pain or SOB. Agree with HPI/ROS as noted. (Dolores Carrizales DO) General Appearance: WD/WN, no apparent distress Eye Exam: bilateral eye normal inspection, bilateral eye EOMI Respiratory: normal breath sounds, no respiratory distress Cardiovascular: normal peripheral pulses, regular rate, rhythm Gastrointestinal: non tender, soft Extremities: non-tender, no pedal edema Neurologic/Psychiatric: alert, normal mood/affect Skin Characteristics: normal color, warm/dry (Dolores Carrizales DO) Assessment/Plan Agree with plan as outlined above partial SBO noted on CT AP and SBFT Trial of clears (Dolores Carrizales DO)
[2017-06-15] MEDS ORDERED: POTASSIUM CHLORIDE 20 MEQ TABCR PO ONE (15:45)
[2017-06-15 23:07] VITALS: BP 171/108; PULSE 74; TEMP 37; O2SAT 95
[2017-06-15] MEDS ORDERED: AMLODIPINE BESYLATE 5 MG TAB PO ONE (23:30)
[2017-06-16] VITALS (9 sets, daily range): BP systolic 146–172; BP diastolic 82–111; PULSE 64–75; TEMP 36.9–37.1; O2SAT 94–97
[2017-06-16] MEDS: SODIUM CHLORIDE 0.9% 1000ML 1,000 ML IV SCH ×2 (01:40→10:11)
[2017-06-16 06:55] LABS: BASO % 0.2 %; BASO ABS # 0.01 K/uL (0-0.2); COMPLETE YES; EOS % 3.1 %; HEMATOCRIT 37.3 % (42-52); IG% 0.2 %; LYMPH % 27.1 %; LYMPH ABS # 1.31 K/uL (1.2-3.4); MEAN CELL VOLUME 86.5 fL (80-100); MEAN CORPUSCULAR HEMOGLOBIN 30.4 pg (25-34); MEAN CORPUSCULAR HGB CONC 35.1 g/dl (32-36); MEAN PLATELET VOLUME 8.8 fL (7.4-10.4); NEUT % 58.4 %; PLATELET COUNT 179 K/uL (130-400); RED BLOOD COUNT 4.31 M/uL (4.7-6.1); WHITE BLOOD COUNT 4.83 K/uL (4.8-10.8)
[2017-06-16 07:29] LABS: CALCIUM 8.3 mg/dl (8.5-10.1); CREATININE 0.78 mg/dl (0.60-1.40); POTASSIUM 3.3 mmol/L (3.5-5.1)
--- NOTE | 2017-06-16 07:52 | Surgery Progress Note ---
Surgery Progress Note Date of Service Jun 16, 2017. Subjective + feeling well, + ambulating, + flatus, + pain controlled, No complaints, No bowel movement, No nausea, No vomiting Objective Vital Signs: Date Time Temp Pulse Resp B/P (MAP) Pulse Ox O2 Delivery O2 Flow Rate FiO2 06/16/17 07:00 36.9 65 17 156/93 (114) 96 Room Air 06/16/17 05:37 156/111 (126) 06/15/17 23:30 Room Air 06/15/17 23:07 37.0 74 16 171/108 (129) 95 Room Air 06/15/17 15:52 Room Air 06/15/17 15:17 37.1 67 18 162/94 (116) 98 Room Air General Appearance: WD/WN, no apparent distress Head: normocephalic, atraumatic Abdomen: normal bowel sounds, non tender, soft Laboratory Results: Results Past 24 Hours Test 06/16/17 06:33 Range/Units White Blood Count 4.83 4.8-10.8 K/uL Red Blood Count 4.31 4.7-6.1 M/uL Hemoglobin 13.1 14.0-18.0 g/dL Hematocrit 37.3 42-52 % Mean Corpuscular Volume 86.5 80-100 fL Mean Corpuscular Hemoglobin 30.4 25-34 pg Mean Corpuscular Hemoglobin Concent 35.1 32-36 g/dl Platelet Count 179 130-400 K/uL Mean Platelet Volume 8.8 7.4-10.4 fL Neutrophils (%) (Auto) 58.4 % Lymphocytes (%) (Auto) 27.1 % Monocytes (%) (Auto) 11.0 % Eosinophils (%) (Auto) 3.1 % Basophils (%) (Auto) 0.2 % Neutrophils # (Auto) 2.82 1.4-6.5 K/uL Lymphocytes # (Auto) 1.31 1.2-3.4 K/uL Monocytes # (Auto) 0.53 0.11-0.59 K/uL Eosinophils # (Auto) 0.15 0-0.5 K/uL Basophils # (Auto) 0.01 0-0.2 K/uL RDW Standard Deviation 39.9 36.4-46.3 fL RDW Coefficient of Variation 12.4 11.5-14.5 % Immature Granulocyte % (Auto) 0.2 % Immature Granulocyte # (Auto) 0.01 0.00-0.02 K/uL Sodium Level 141 136-145 mmol/L Potassium Level 3.3 3.5-5.1 mmol/L Chloride Level 107 98-107 mmol/L Carbon Dioxide Level 27 21-32 mmol/L Anion Gap 7.0 3-11 mmol/L Blood Urea Nitrogen 9 7-18 mg/dl Creatinine 0.78 0.60-1.40 mg/dl Est Creatinine Clear Calc Drug Dose 132.6 ml/min Estimated GFR () 117.0 Estimated GFR (Non- 100.9 BUN/Creatinine Ratio 12.0 10-20 Random Glucose 102 70-99 mg/dl Calcium Level 8.3 8.5-10.1 mg/dl SMALL BOWEL STUDY CLINICAL HISTORY: 57 years-old Male presenting with Partial small bowel obstruction. TECHNIQUE: An abdominal trauma therapist radiograph was performed. A standard air contrast upper GI series was then performed. Spot images of the esophagus and stomach were obtained in multiple obliquities with upright and prone. The patient then consumed several of thin barium and a small follow-through was performed. Overhead radiographs and spot compression images were obtained. COMPARISON: CT from 06/14/2017. FINDINGS: Initial radiograph of the abdomen demonstrates a paucity of small bowel gas, nonspecific. No gross evidence of free intraperitoneal gas. Few pelvic phleboliths noted. Degenerative changes of the lower lumbar spine may be present. The patient ingested barium without difficulty. The stomach is normal appearing. Normal configuration of the duodenal sweep. No abnormal distention of the duodenum. Proximal jejunum and proximal ileum dilated as seen on recent CT. In the mid abdomen, slightly to the left of midline, apparent caliber change with a kinked configuration. This suggests that lesions in this region. At this site and distally, small bowel is nondistended with distal ileum decompressed. However, no evidence of a complete obstruction as contrast reaches the cecum. Fluoroscopy dosage (mGy): Not available. Fluoroscopy time: 2.4 minutes. Number of fluoroscopic spot images: 28. IMPRESSION: Findings consistent with low-grade partial small bowel obstruction with a transition point suspected in the mid abdomen, where there is a focal kinked configuration. This correlates with the appearance on CT. This is likely secondary to postoperative adhesions given the patient's history of cholecystectomy. Electronically signed by: Mick Burton M.D. 06/15/2017 2:56 PM Dictated Date/Time: 06/15/2017 2:49 PM Assessment & Plan 57-yo male Partial Small Bowel Obstruction Patient continuing to do well- no new concerns. Still no return of bowel function. SBFT (06/15) reviewed and discussed with Dr. Agarwal Patient tolerating clear liquids, feels hungry- will advance diet to full liquids this AM. 57-year-old male Partial Small Bowel Obstruction Patient doing very well this AM. No new concerns overnight. Patient remains afebrile. Pain is controlled. Passing flatus, no BM yet. NG tube out- denies nausea or vomiting. Patient to remain NPO. SBFT this AM.
[2017-06-16] MEDS: LOSARTAN POTASSIUM 50 MG TAB PO SCH (09:00)
[2017-06-16] MEDS ORDERED: POTASSIUM CHLORIDE 20 MEQ TABCR PO ONE (09:00)
[2017-06-16] MEDS: AMLODIPINE BESYLATE 5 MG TAB PO SCH (09:02)
--- NOTE | 2017-06-16 10:14 | DIAGNOSTIC IMAGING REPORT ---
KUB CLINICAL HISTORY: sbo dyspnea. Pain. COMPARISON STUDY: 06/14/2017 FINDINGS: Interval removal of the nasogastric tube. Increased contrast within the colon compared to the prior study. Improved small bowel distention. Study currently is considered nonobstructive overall. The appendix is opacified. No secondary signs of free air. IMPRESSION: Improving findings of small bowel obstructive change with no significant residual on the current exam. Interval removal of the nasogastric tube The above report was generated using voice recognition software. It may contain grammatical, syntax or spelling errors. Electronically signed by: Rafi Stout M.D. 06/16/2017 10:13 AM Dictated Date/Time: 06/16/2017 10:11 AM
[2017-06-16] MEDS: PANTOprazole INJ 40 MG in SYRINGE 0 ML IV SCH (11:06)
--- NOTE | 2017-06-16 11:27 | Hospitalist Progress Note ---
Hospitalist Progress Note Date of Service Jun 16, 2017. (Shakila Bella ., RANDALL) Subjective Pt evaluation today including: conversation w/ patient, physical exam, chart review, lab review, review of studies, review of inpatient medication list Pain: None PO Intake: Tolerating full liquids Voiding: no voiding problems Patient reports feeling well. He states he does have some mild tenderness in his belly sometimes, but he thinks this is actually more due to his recent pneumonia and residual cough. He complains of a cough at nighttime when he is lying down that is productive. He does not have this cough during the day when he is upright. The patient denies any nausea or vomiting. He states he is passing some gas but still has not had a bowel movement. The patient denies fevers, chills, sweats, chest pain, palpitations, claudication, wheezing, shortness of breath, nausea, vomiting, abdominal pain, dysuria, hematuria, urinary retention, paralysis, weakness, numbness and tingling. Additional Comments: See HPI for pertinent positives and negatives. All other systems reviewed and negative. (Shakila Bella ., KRISTIE-C) Objective Vital Signs Date Time Temp Pulse Resp B/P (MAP) Pulse Ox O2 Delivery O2 Flow Rate FiO2 06/16/17 10:30 150/94 (112) 06/16/17 08:56 75 172/97 (122) 06/16/17 08:20 94 Room Air 06/16/17 07:51 36.9 64 15 148/86 (106) 94 Room Air 06/16/17 07:45 94 06/16/17 07:00 36.9 65 17 156/93 (114) 96 Room Air 06/16/17 05:37 156/111 (126) 06/15/17 23:30 Room Air 06/15/17 23:07 37.0 74 16 171/108 (129) 95 Room Air 06/15/17 15:52 Room Air 06/15/17 15:17 37.1 67 18 162/94 (116) 98 Room Air (Shakila Bella ., RIVASC) Physical Exam Notes: General appearance: +Obese. Well-developed, well-nourished, no apparent distress Head: Normocephalic, atraumatic Eyes: Normal inspection, PERRL, EOMI ENT: Normal ENT inspection, hearing grossly normal, pharynx normal Neck: Supple, no JVD, trachea midline Respiratory/Chest: Lungs clear to auscultation, normal breath sounds, no respiratory distress Cardiovascular: Regular rate & rhythm, no gallop, no murmur Abdomen/GI: +Hyperactive bowel sounds. Non-tender, soft Extremities/Musculoskeletal: Normal inspection, no calf tenderness, no pedal edema Neurological/Psych: Alert, normal mood/affect, oriented x 3 Skin: Normal color, warm/dry, no rash (Shakila Bella PA-C) Laboratory Results Last 24 Hours Test 06/16/17 06:33 White Blood Count 4.83 K/uL Red Blood Count 4.31 M/uL Hemoglobin 13.1 g/dL Hematocrit 37.3 % Mean Corpuscular Volume 86.5 fL Mean Corpuscular Hemoglobin 30.4 pg Mean Corpuscular Hemoglobin Concent 35.1 g/dl Platelet Count 179 K/uL Mean Platelet Volume 8.8 fL Neutrophils (%) (Auto) 58.4 % Lymphocytes (%) (Auto) 27.1 % Monocytes (%) (Auto) 11.0 % Eosinophils (%) (Auto) 3.1 % Basophils (%) (Auto) 0.2 % Neutrophils # (Auto) 2.82 K/uL Lymphocytes # (Auto) 1.31 K/uL Monocytes # (Auto) 0.53 K/uL Eosinophils # (Auto) 0.15 K/uL Basophils # (Auto) 0.01 K/uL RDW Standard Deviation 39.9 fL RDW Coefficient of Variation 12.4 % Immature Granulocyte % (Auto) 0.2 % Immature Granulocyte # (Auto) 0.01 K/uL Sodium Level 141 mmol/L Potassium Level 3.3 mmol/L Chloride Level 107 mmol/L Carbon Dioxide Level 27 mmol/L Anion Gap 7.0 mmol/L Blood Urea Nitrogen 9 mg/dl Creatinine 0.78 mg/dl Est Creatinine Clear Calc Drug Dose 132.6 ml/min Estimated GFR () 117.0 Estimated GFR (Non- 100.9 BUN/Creatinine Ratio 12.0 Random Glucose 102 mg/dl Calcium Level 8.3 mg/dl (Shakila Bella PA-C) Diagnostic Results Reviewed the following studies and agree with interpretation as follows: Patient Name: BALAJI BOWENS Unit Number: [id number] Dictated: 06/16/17 101 Transcribed: 06/16/17 1011 MS Printed Date/Time: [~ rep prt dt]/[~ rep prt tm] [~ rep ct labl] - [~ rep ct ivnm] [facility] [place] [address] Dictated: 06/16/17 1011 Transcribed: 06/16/17 1011 MS Printed Date/Time: [~ rep prt dt]/[~ rep prt tm] [~ rep ct labl] - [~ rep ct ivnm] Patient: BALAJI BOWENS Address1: [address] [place] Rec: [id number] Address2: Acct ID: [id number] [facility] Zip: [facility] [place] [address] Date: 1960 Sex: M Room/Bed: W351 Ref Phy: Tona Donahue CRNP SC: CRikiCHIROPRACTIC PRACTICE MANAGER Att Phy: Dolores Carrizales DO Report #: [id number] Aliyah Phy: Tona Donahue CRNP Test: KUB Admit Phy: Mansoor Garza D.O. Engineering Librarian: SIMONE Interpreting Phy: Rafi Stout M.D. Diagnosis: SBO Ordering Phy: Oskar Agarwal D.O. Service Date: 06/16/17 Admit Date: 06/14/1711/15/17 MNE: [id number] CONF: DICTATED BY: Rafi Stout M.D.]] CC: Tona Donahue CRNP Davidson, Matthew D. D.O. Stevens, Jessica A., DO Endcc: [~ rep ct add3]] KUB CLINICAL HISTORY: sbo dyspnea. Pain. COMPARISON STUDY: 06/14/2017 FINDINGS: Interval removal of the nasogastric tube. Increased contrast within the colon compared to the prior study. Improved small bowel distention. Study currently is considered nonobstructive overall. The appendix is opacified. No secondary signs of free air. IMPRESSION: Improving findings of small bowel obstructive change with no significant residual on the current exam. Interval removal of the nasogastric tube The above report was generated using voice recognition software. It may contain grammatical, syntax or spelling errors. Electronically signed by: Rafi Stout M.D. 06/16/2017 10:13 AM Dictated Date/Time: 06/16/2017 10:11 AM The status of this report is Signed. Draft = Not yet reviewed or approved by Radiologist. Signed = Reviewed and approved by Radiologist. <AttendingPhy>Dolores Carrizales DO</AttendingPhy> <FamilyPhy>Tona Donahue CRNP</FamilyPhy> <PrimaryPhy>Tona Donahue CRNP</PrimaryPhy> <UnitNumber> [id number]</UnitNumber> <VisitNumber>[id number]</VisitNumber> <PatientName> BALAJI BOWENS</PatientName> <DateOfBirth>1960</DateOfBirth> <Location> W</Location> <ServiceDate>06/14/17</ServiceDate> <MNE>ESINDI</MNE> < OrderingPhy>Oskar Agarwal D.O.</OrderingPhy> <OrderingPhyMNE>f rep ord dr whitten</OrderingPhyMNE> <DictatingPhyMNE>f rep dict dr whitten</DictatingPhyMNE> < CCListMNE>f rep ct mne</CCListMNE> <AdmittingPhyMNE>f pt admit dr whitten</ AdmittingPhyMNE> <AttendingPhyMNE>f pt attend dr whitten</AttendingPhyMNE> <ConsultingPhyMNE>f pt consult dr whitten</ConsultingPhyMNE> <FamilyPhyMNE>f pt fam dr whitten</FamilyPhyMNE> <OtherPhyMNE>f pt other dr whitten</OtherPhyMNE> < PrimaryPhyMNE>f pt prim care dr whitten</PrimaryPhyMNE> <ReferringPhyMNE>f pt referring dr whitten</ReferringPhyMNE> (Shakila Bella, RANDALL) Assessment and Plan 57 y/o male with a history of HTN, BPH, gout, IBS, GERD and remote history of cholecystectomy who presents with 2 days of abdominal distension, belching and nausea. Partial SBO likely related to adhesions from open cholecystectomy--improving -Admit to med/surg -KUB 06/16 shows improvement in small bowel distention, non-obstructive pattern now -No pain, nausea, vomiting. Passing gas. Still no BM -Tolerating full liquids, advance to heart healthy, low fat diet -General surgery consulted, appreciate recs: OK to advance diet, watch overnight and can likely d/c tomorrow -Small bowel study shows low grade partial small bowel obstruction -D/C IVF -Toradol 15 mg IV q6h prn pain HTN--stable -Resume home Norvasc 10 mg PO qd and losartan 100 mg PO qd Gout--stable, no acute flare -Pt no longer takes Uloric for maintenance GERD -Prilosec converted to Protonix. Stop IV, convert to PO DVT prophylaxis -SCDs Code Status -Level I, FULL RESUSCITATION STATUS Dispo -Anticipate discharge tomorrow (Shakila Bella ., PA-C) Reviewed: Pt Seen/Exam by Me (Dolores Carrizales, ) History Pt is continuing to feel improved. Had just finished lunch on my arrival and was having no issues with a regular tray at that point. No abd pain return. Pt denies fever, SOB, chest pain, n/v/c/d, LE pain or swelling. Agree with HPI/ROS as noted. (Dolores Carrizales, ) General Appearance: WD/WN, no apparent distress Respiratory: normal breath sounds, no respiratory distress Cardiovascular: normal peripheral pulses, regular rate, rhythm Gastrointestinal: non tender, soft Extremities: non-tender, no pedal edema Neurologic/Psychiatric: alert, normal mood/affect, oriented x 3 Skin Characteristics: normal color, warm/dry (Dolores Carrizales, ) Assessment/Plan Agree with plan as outlined above partial SBO noted on CT AP and SBFT Trial of regular diet Surgery would like to monitor overnight and possible d/c tomorrow (Dolores Carrizales, DO)
[2017-06-17 07:35] LABS: BASO % 0.4 %; BASO ABS # 0.02 K/uL (0-0.2); COMPLETE YES; EOS % 4.1 %; HEMATOCRIT 38.3 % (42-52); IG% 0.2 %; LYMPH % 27.5 %; LYMPH ABS # 1.34 K/uL (1.2-3.4); MEAN CELL VOLUME 86.7 fL (80-100); MEAN CORPUSCULAR HEMOGLOBIN 31.2 pg (25-34); MONO % 11.9 %; NEUT % 55.9 %; PLATELET COUNT 193 K/uL (130-400); RED BLOOD COUNT 4.42 M/uL (4.7-6.1); WHITE BLOOD COUNT 4.88 K/uL (4.8-10.8)
[2017-06-17 08:04] VITALS: BP 129/84; PULSE 75; TEMP 36.5; O2SAT 96
[2017-06-17 08:06] LABS: BUN/CREATININE RATIO 13.7 (10-20); CREATININE 0.91 mg/dl (0.60-1.40); POTASSIUM 3.4 mmol/L (3.5-5.1)
[2017-06-17] MEDS ORDERED: PANTOprazole SOD 40 MG TAB PO SCH (09:00)
[2017-06-17] MEDS: LOSARTAN POTASSIUM 50 MG TAB PO SCH (09:06)
[2017-06-17] MEDS: AMLODIPINE BESYLATE 5 MG TAB PO SCH (09:07)
[2017-06-17] MEDS ORDERED: POTASSIUM CHLORIDE 10 MEQ TABCR PO STA (10:56)
--- NOTE | 2017-06-17 11:10 | Discharge Instructions ---
Discharge Instructions Date of Service Jun 17, 2017. Admission Reason for Admission: SBO Discharge Discharge Diagnosis / Problem: Small bowel obstruction Discharge Goals Goal(s): Improve disease control, Diagnostic testing, Therapeutic intervention Activity Recommendations Activity Limitations: resume your previous activity Shower/Bathe: no limitations . Instructions / Follow-Up Instructions / Follow-Up You were admitted with a small bowel obstruction thought to be caused by adhesions or scar tissue from your previous gallbladder surgery. Your symptoms completely resolved and you were eating by the time of discharge. Please follow up with the General Surgeon and your PCP as scheduled for you in the next 1-2 weeks. If you have recurrence of abdominal pain, nausea, or vomiting, you should come back to the ER. There is a chance you could require surgery in the future if this continues to recur. Current Hospital Diet Patient's current hospital diet: AHA Diet (Heart Healthy), Low Fat Diet Discharge Diet Recommended Diet: AHA Diet (Heart Healthy) Procedures Procedures Performed: Abdominal xrays CT abdomen/pelvis Pending Studies Studies pending at discharge: no Laboratory Results Last 24 Hours Test 06/17/17 07:00 White Blood Count 4.88 K/uL Red Blood Count 4.42 M/uL Hemoglobin 13.8 g/dL Hematocrit 38.3 % Mean Corpuscular Volume 86.7 fL Mean Corpuscular Hemoglobin 31.2 pg Mean Corpuscular Hemoglobin Concent 36.0 g/dl Platelet Count 193 K/uL Mean Platelet Volume 9.0 fL Neutrophils (%) (Auto) 55.9 % Lymphocytes (%) (Auto) 27.5 % Monocytes (%) (Auto) 11.9 % Eosinophils (%) (Auto) 4.1 % Basophils (%) (Auto) 0.4 % Neutrophils # (Auto) 2.73 K/uL Lymphocytes # (Auto) 1.34 K/uL Monocytes # (Auto) 0.58 K/uL Eosinophils # (Auto) 0.20 K/uL Basophils # (Auto) 0.02 K/uL RDW Standard Deviation 40.1 fL RDW Coefficient of Variation 12.6 % Immature Granulocyte % (Auto) 0.2 % Immature Granulocyte # (Auto) 0.01 K/uL Sodium Level 141 mmol/L Potassium Level 3.4 mmol/L Chloride Level 106 mmol/L Carbon Dioxide Level 28 mmol/L Anion Gap 7.0 mmol/L Blood Urea Nitrogen 13 mg/dl Creatinine 0.91 mg/dl Est Creatinine Clear Calc Drug Dose 113.6 ml/min Estimated GFR () 108.8 Estimated GFR (Non- 93.9 BUN/Creatinine Ratio 13.7 Random Glucose 112 mg/dl Calcium Level 9.0 mg/dl Medical Emergencies . Who to Call and When: Medical Emergencies: If at any time you feel your situation is an emergency, please call 911 immediately. . Non-Emergent Contact Non-Emergency issues call your: Primary Care Provider, Surgeon Call Non-Emergent contact if: you have a fever, your pain is not controlled, your pain is worsening, your pain is unusual for you, your pain is concerning you, you have any medication questions . . "Provider Documentation" section prepared by Mounika Hall. . VTE Core Measure Inpt VTE Proph given/why not?: SCD's
[2017-06-17 11:13] VITALS: BP 129/84; PULSE 75; TEMP 36.5; O2SAT 96
--- NOTE | 2017-06-17 11:18 | Discharge Summary ---
Discharge Summary Date of Service Jun 17, 2017. Discharge Summary Admission Date: Jun 14, 2017 at 07:59 Discharge Date: Jun 17, 2017 Discharge Disposition: Home Principal Diagnosis: SBO Problems/Secondary Diagnoses: HTN BPH Gout IBS GERD history of open cholecystectomy Hypokalemia Immunizations: Have You Had Influenza Vaccine: Yes Influenza Vaccine Date: Feb 22, 2013 History of Tetanus Vaccine?: Yes Tetanus Immunization Date: Jul 25, 2005 History of Pneumococcal: No History of Hepatitis B Vaccine: No Procedures: CT Abd/pel KUB SBFT Consultations: General Surgery Medication Reconciliation Continued Medications: Amlodipine (Norvasc) 10 Mg Tab 10 MG PO DAILY, TAB Losartan Potassium (Cozaar) 100 Mg Tab 100 MG PO DAILY, TAB Omeprazole (Prilosec) 20 Mg Capcr 40 MG PO DAILY, CAP Discharge Exam Pt feeling great. He is aaron reg diet, moved his bowels this AM, denies any abd pain at all, no N/V. Stool had barium in it but otherwise normal, no blood. He does have a mild BEY since yesterday and thinks he hasn't been getting his usual daily caffeine amount. Review of Systems: Constitutional: No fever, No chills Eyes: No problem reported ENT: No problem reported Respiratory: No shortness of breath Cardiovascular: No chest pain Abdomen: No pain, No nausea, No vomiting, No diarrhea, No constipation, No GI bleeding Musculoskeletal: No problem reported Genitourinary - Male: No problem reported Neurologic: + problem reported (headache as per HPI) Psychiatric: No problem reported Endocrine: No problem reported Hematologic / Lymphatic: No problem reported Integumentary: No problem reported Physical Exam: General Appearance: WD/WN, no apparent distress Eyes: normal inspection, sclerae normal ENT: hearing grossly normal Neck: trachea midline Respiratory/Chest: lungs clear, normal breath sounds, no respiratory distress, no accessory muscle use Cardiovascular: regular rate, rhythm, no edema, no gallop, no JVD, no murmur , normal peripheral pulses Abdomen / GI: normal bowel sounds, non tender, soft, no organomegaly, no pulsatile mass, + hernia (small reducible umbiulical hernia) Extremities: normal inspection, no calf tenderness, normal capillary refill , no pedal edema Neurologic/Psychiatric: alert, normal mood/affect, oriented x 3 Skin: normal color, warm/dry, no rash Hospital Course This pt is a 57 y/o male with a history of HTN, BPH, gout, IBS, GERD and remote history of cholecystectomy who presents with 2 days of abdominal distension, belching and nausea. Partial SBO likely related to adhesions from prior open cholecystectomy-- completely resolved by time of discharge after treatment with NGT, pain medicine , keeping nPO, advanced diet as tolerated after removal of NGT. Repeat xrays showed resolution, was clinically resolved as well. -General surgery consulted, appreciate recs -Small bowel study showed low grade partial small bowel obstruction -f/u with Surgery as outpt -advised to return to ER if symptoms recur and may require ASIF in future Hypokalemia- K+ 3.4 on day of discharge -repleted with po KCl HTN--stable -continue home Norvasc 10 mg PO qd and losartan 100 mg PO qd Gout--stable, no acute flare -Pt no longer takes Uloric for maintenance GERD -continue PPI Discharge to home in good condition Total Time Spent: Greater than 30 minutes This includes examination of the patient, discharge planning, medication reconciliation, and communication with other providers. Discharge Instructions Please refer to the electronic Patient Visit Report (Discharge Instructions) for additional information. Follow-Up PCP within 1 week General Surgery within 1-2 weeks Additional Copies To Oskar Agarwal D.O.; Josh. Coley M.D.
== END 2017-06-17 12:20 | disposition home or self-care (01) | DRG 390 ==
LOC: C.EDB 04:45 → C.MSW 07:59 → ENRESERV 08:57
PROVIDERS: ADMIT Hospitalist; ATTEND Family Medicine
DX: K56.600 Partial intestinal obstruction, unspecified as to cause (principal); K57.90 Diverticulosis of intestine, part unspecified, without perforation or abscess without bleeding; K21.9 Gastro-esophageal reflux disease without esophagitis; M10.9 Gout, unspecified; I10 Essential (primary) hypertension; K58.9 Irritable bowel syndrome, unspecified; E87.6 Hypokalemia; Z88.5 Allergy status to narcotic agent; Z90.49 Acquired absence of other specified parts of digestive tract; Z80.9 Family history of malignant neoplasm, unspecified; Z82.49 Family history of ischemic heart disease and other diseases of the circulatory system

== ENCOUNTER 2021-03-20 12:03 | Inpatient (IN) ==
[2021-03-20] MEDS ORDERED: guaiFENesin 600 MG TABCR PO STA (12:56)
[2021-03-20] MEDS ORDERED: ACETAMINOPHEN 1,000 MG/100 ML VIAL IV STA (12:56)
[2021-03-20] MEDS ORDERED: FAMOTIDINE 20MG IV PUSH 20 MG/5 ML SYR IV STA (12:56)
[2021-03-20] MEDS ORDERED: SODIUM CHLORIDE 0.9% 1000ML 2,000 ML IV ONE (12:56)
[2021-03-20] MEDS ORDERED: ONDANSETRON INJ 2 MG/ML 2 ML VIAL IV STA (12:56)
[2021-03-20] MEDS ORDERED: dexAMETHasone**PF** 10 MG/ML VIAL IV ONE (12:56)
[2021-03-20] MEDS ORDERED: IPRATROPIUM BROMIDE/ALBUTEROL respimat INH INH STA (12:57)
[2021-03-20 12:59] LABS: Basophils # (auto) 0.01 K/uL (0-0.2); Basophils % (auto) 0.1 %; Hematocrit (blood only) 42.2 % (42-52); Hemoglobin 14.9 g/dL (14.0-18.0); Immature Granulocytes # (auto) 0.03 K/uL (0.00-0.02); Immature Granulocytes % (auto) 0.4 %; Lymphocytes # (auto) 0.56 K/uL (1.2-3.4); Lymphocytes % (auto) 6.7 %; Mean Corpuscular Hemoglobin 31.2 pg (25-34); Mean Corpuscular Hgb Conc 35.3 g/dL (32-36); Mean Corpuscular Volume 88.5 fL (80-100); Mean Platelet Volume 9.8 fL (7.4-10.4); Monocytes # (auto) 0.28 K/uL (0.11-0.59); Monocytes % (auto) 3.4 %; Neutrophils # (auto) 7.45 K/uL (1.4-6.5); Neutrophils % (auto) 89.4 %; Platelet Count 177 K/uL (130-400); RDW Coefficient of Variation 13.5 % (11.5-14.5); Red Blood Count 4.77 M/uL (4.7-6.1); White Blood Count 8.33 K/uL (4.8-10.8)
[2021-03-20 13:06] LABS: BUN Creatinine Ratio 21.7 (10-20); Calcium 8.8 mg/dl (8.5-10.1); Creatinine Clr Calc Pharmacy 61.8 ml/min; Est GFR (African American) 53.1 ml/min; Est GFR (Non-African American) 45.8 ml/min; Potassium 3.2 mmol/L (3.5-5.1)
[2021-03-20 13:09] LABS: Albumin Globulin Ratio 0.7 (0.9-2); Bilirubin,Total 0.5 mg/dl (0.2-1); Globulin 4.1 gm/dl (2.5-4.0); Total Protein 7.1 gm/dl (6.4-8.2)
[2021-03-20 13:34] LABS: Bilirubin Direct 0.2 mg/dl (0-0.2); Magnesium 1.9 mg/dl (1.8-2.4); Phosphorus 3.1 mg/dl (2.5-4.9); Troponin I < 0.015 ng/ml (0-0.045)
--- NOTE | 2021-03-20 13:47 | XRay Report ---
XR chest 1V portable CLINICAL HISTORY: covid, sob COMPARISON STUDY: Chest radiograph June 12, 2017. FINDINGS: Lung volumes are normal. No pneumothorax or pleural effusion is noted. Extensive right lung and moderate left lung airspace opacities are present. Note is made of cardiomegaly. IMPRESSION: Bilateral airspace opacities suggestive of viral pneumonia. Radiographic follow up to en sure resolution is recommended. ACT 112: Negative or not required by law. Electronically signed by: Floyd Neal M.D. 03/20/2021 1:46 PM
--- NOTE | 2021-03-20 14:56 | History & Physical Report ---
Date of Service March 20, 2021 Assessment & Plan (1) Pneumonia due to COVID-19 virus: Plan: Acute hypoxic respiratory failure 2/2 COVID-19 pneumonia Symptom onset: Proximately March 09 Requiring nonrebreather, 15 L in ER No leukocytosis, afebrile on assessment Creatinine acutely elevated from baseline less than 1-1.61 AST 158, ALT 149, alk phos 122, troponin negative CRP pending COVID-19 PCR +03/16 and 03/20 CXR: Bilateral airspace opacities consistent with viral pneumonia Dexamethasone 6 mg x 10-day total course DuoNeb as needed every 4 Inspiratory spirometry, letter follow-up as tolerated - BNP pending, defer CTA in the setting of ROSARIO. Continue to follow, maintain suspicion for potential embolism (2) ROSARIO (acute kidney injury): Plan: - Baseline creatinine less than 1, acutely elevated to 1.61 Received 2 L NSS while in ER. Defer additional fluids to clinical reassessment, refer to maintain slightly dry to optimize lung function in the setting of Covid pneumonia Some additional fluid as noted for repletion of hypokalemia BMP daily (3) Hypokalemia: Plan: Due to intermittent nausea/vomiting or poor p.o. intake Sodium 3.2 Magnesium 1.9 KCl rider x3 KCl oral 20 MeQ twice daily Mag-Ox 200 mg twice daily (4) Sensorineural hearing loss (SNHL) of left ear with unrestricted hearing of right ear: (5) Uvular hypertrophy: (6) BPH loc w urin obs/LUTS: Plan: Urinary bottle at bedside, may condom cath if needed Follow clinically Plan: DVT prophylaxis: Covid dosed Lovenox Diet: Regular, hold diet if patient unable to eat/drink safely without desaturation Disposition: Covid waiting, PCU CODE STATUS: Full code, discussed with patient History of Present Illness Chief Complaint: Shortness of breath, fevers Primary Care Provider: Tona Donahue Gavin Coffey is a 61-year-old male with a past medical history of BPH/LUTS sensorineural hearing loss, uvular hypertrophy, and gastric outlet obstruction who presents with shortness of breath and hypoxia and who was admitted for acute hypoxic respiratory failure 2/2 Covid pneumonia. Symptoms since ~Mar 09 acutely worsened yesteday. Fevers, chills, muscle aches since the but worsened cough productive for clear/thick white sputum, worsened fevers, increased shortness of breath and fatigue x24 hours. is sick with COVID in the COVID wing. He was not vaccinated against COVID19. Has not taken his medications today, other medications as noted below. No leg swelling. Celine is nausea/vomiting last few days, poor p.o. intake. Denies diarrhea/constipation MedHx: HTN, gout treated PRN, LUTS (up multiple times per night to pee). No asthma. No hx of immunosuppression. no history of heart disease or blood clots. Med: Amlodipine, losartan Medical History: Reviewed Medications: Reviewed Surgical History: Reviewed Allergies: Reviewed Social History: No tobacco/EtOH use. Lives at home with his . currently ill with COVID in [facility]. Denies recreational substance use Code Status: Full Code Allergies Allergy/AdvReac Type Severity Reaction Status Date / Time allopurinol AdvReac Unknown Elevated Verified 03/20/21 15:29 liver panels. morphine AdvReac Unknown slows Verified 03/20/21 15:29 heart rate Home Medications Medication Instructions Recorded Confirmed Type amlodipine 10 mg tablet mg PO 06/22/20 01/14/21 History losartan 100 mg tablet mg PO 06/22/20 01/14/21 History mupirocin 2 % topical ointment TOPICAL 06/22/20 01/14/21 History prednisone 20 mg tablet mg PO 06/22/20 01/14/21 History tadalafil PO 06/22/20 01/14/21 History solifenacin 10 mg tablet (Vesicare) 10 mg PO DAILY #30 tab 10/13/20 01/14/21 Rx Past Med/Surg History Medical History Basal cell carcinoma Gout Hypertension Testicular pain Tick bite Surgical History H/O vasectomy Hx of cholecystectomy Hx of colonoscopy Family History Grandmother (Paternal) Hypertension Grandfather (Paternal) Hypertension Father Bladder cancer Social History Smoking Status: Never smoker Hx Alcohol Use: Yes Preferred Language: Malagasy marital status: current occupational status: employed Feels Safe at Home: Yes Review of Systems Review of Systems: Constitutional: See HPI Eyes: Denies double vision, vision change, eye pain ENT: Denies ear pain, sore throat, sinus pain Cardiovascular: Denies Chest pain, chest pressure, palpitations, extremity swelling Respiratory: See PHI Gastrointestinal: See HPI Genitourinary: Denies pain with urination, urinary urgency, urinary frequency. Endorses nocturia w/ LUTS Musculoskeletal: Denies focal weakness, muscle aches/pain, joint aches/pain, endorses global fatigue Integumentary:Denies rash, lesions, bruising Neurological: Denies headache, numbness, tingling, focal weakness Physical Exam Physical Exam: General: A&Ox3. NAD. Cooperative. on NRB mask. HEENT: Atraumatic, normocephalic. PERLAA. EoM intact without nystagmus. Visual acuity and hearing itnact. Pulm: Bibasilar crackles, diffusely coarse, no rhonchi/wheezes. moderate air movement. Symmetrical chest rise. No respiratory distress. Cardiac: RRR, -mrg. Radial pulses intact and symmetrical. Abdominal: Nontender, nondistended, soft. BS present. Ext: Warm, dry, NT. Sensation to soft touch intact. Results & Data Results & Data ([facility]) Vital Signs (Past 12 Hours) Vital Signs Temp Pulse Resp BP Pulse Ox 03/20/21 14:30 87 122/73 91 03/20/21 14:00 85 24 114/66 90 03/20/21 13:30 83 26 H 136/78 93 03/20/21 13:00 83 25 H 137/84 95 03/20/21 12:30 84 26 H 129/75 95 03/20/21 12:10 87 27 H 124/73 95 03/20/21 12:03 37.0 C 87 26 H 124/73 84 L Laboratory Results Abnormal lab results 03/20/21 03/20/21 03/20/21 Range/Units 12:26 12:26 13:24 Neut # (Auto) 7.45 H (1.4-6.5) K/uL Lymph # (Auto) 0.56 L (1.2-3.4) K/uL Immature Gran # (Auto) 0.03 H (0.00-0.02) K/uL Potassium 3.2 L (3.5-5.1) mmol/L Chloride 108 H (98-107) mmol/L BUN 35 H (7-18) mg/dl Creatinine 1.61 H (0.6-1.4) mg/dl BUN/Creatinine Ratio 21.7 H (10-20) Glucose 146 H (70-99) mg/dl AST 158 H (15-37) U/L ALT 149 H (12-78) U/L Alkaline Phosphatase 122 H (45-117) U/L Albumin 3.0 L (3.4-5.0) gm/dl Globulin 4.1 H (2.5-4.0) gm/dl Albumin/Globulin Ratio 0.7 L (0.9-2) SARS-CoV-2 (PCR) POSITIVE A* (Negative) Diagnostic Findings Chest X-Ray 03/20/21 12:58 XR chest 1V portable CLINICAL HISTORY: covid, sob COMPARISON STUDY: Chest radiograph June 12, 2017. FINDINGS: Lung volumes are normal. No pneumothorax or pleural effusion is noted. Extensive right lung and moderate left lung airspace opacities are present. Note is made of cardiomegaly. IMPRESSION: Bilateral airspace opacities suggestive of viral pneumonia. Radiographic follow up to ensure resolution is recommended. ACT 112: Negative or not required by law. Electronically signed by: Floyd Neal M.D. 03/20/2021 1:46 PM Medications Administered Home Medications amlodipine 10 mg tablet mg PO 06/22/20 [History Confirmed 01/14/21] losartan 100 mg tablet mg PO 06/22/20 [History Confirmed 01/14/21] mupirocin 2 % topical ointment TOPICAL 06/22/20 [History Confirmed 01/14/21] prednisone 20 mg tablet mg PO 06/22/20 [History Confirmed 01/14/21] tadalafil PO 06/22/20 [History Confirmed 01/14/21] solifenacin 10 mg tablet (Vesicare) 10 mg PO DAILY #30 tab 10/13/20 [Rx Confirmed 01/14/21] PG Care Time/CCT Total # of Minutes Spent Total Time Spent with Patient: Total time spent is greater than 50% in coordination of care (as documented) at patient's floor/unit and/or counseling patient: Coding Level of Care Code 65006 Initial Inpt Care Lvl 3 Diagnoses Pneumonia due to COVID-19 virus U07.1; J12.82 Sensorineural hearing loss (SNHL) of left ear with unrestricted hearing of right ear H90.42 Uvular hypertrophy K13.79 BPH loc w urin obs/LUTS N40.1 ROSARIO (acute kidney injury) N17.9 Hypokalemia E87.6
--- NOTE | 2021-03-20 15:26 | Emergency Department Note ---
Impression & Plan Pneumonia due to COVID-19 virus, Acute respiratory failure with hypoxia, Renal insufficiency ED Provider Note NAME: BALAJI BOWENS AGE: 61 SEX: M ARRIVES VIA: Ambulance INFORMANT: Patient, ED PROVIDER(S): Will Buenrostro MD CHIEF COMPLAINT: SOB, covid PLAN: Disposition: Admit MEDICAL DECISION MAKING: The patient is a pleasant 61-year-old gentleman with a past medical history of hypertension, BPH who presents to the emergency department for evaluation of worsening shortness of breath and low oxygen in setting being diagnosed with COVID-19 with symptoms that began approximately 11 days ago. The patient reports worsening feverishness, shortness of breath cough and chest tightness. He reports having intermittent nausea and vomiting and decreased appetite with decreased oral intake. He denies any diarrhea or urinary symptoms. He denies any prior history of smoking or lung disease. The patient reports that his is currently hospitalized secondary to COVID-19. He feels that they were likely exposed when they were visiting family in [place] and their son was the first to get sick. He has not been vaccinated for COVID-19 as initially he reports he had talked it over with his provider and given he had a prior history of a "bad reaction" with his shingles vaccine they were going to review revisit the topic but he had yet to do this. On arrival the patient is uncomfortable but no acute distress, afebrile with respiratory rate in the mid 20s and O2 saturation mid 80s on room air placed on 100% nonrebreather with improvement to the mid 90s. On exam the patient appears clinically dry. He does have scant intermittent wheezes and rhonchi. Abdomen is nontender. EKG without overt acute ischemia. Chest x-ray demonstrates bilateral multifocal pneumonia consistent with COVID-19 pneumonia given his known positive COVID-19 status. WBC, H/H and platelets within normal limits. Lymphopenia is present at 0.56. Creatinine 1.6 increased from prior consistent with the patient's clinically dry appearance with BUN/creatinine> 20. Potassium 3.2 and electrolytes otherwise without significant abnormality. LFTs are elevated with AST, ALT and alk phos, 158, 149 and 122, respectively and are nonspecific and consistent with the p atient's COVID-19. Troponin negative/undetectable and BNP wnl and so PE less likely at this time. The patient was treated with dexamethasone, guaifenesin, Combivent MDI but unfortunately O2 saturation continued to decline despite being on 100% nonrebreather and so patient was placed on BiPAP. Patient was in agreement with plan for admission. Case was discussed with Dr. Perez, [facility] hospitalist, who will evaluate the patient for admission. Triage Nursing notes reviewed and agree them. Prior medical records reviewed Vital Signs: reviewed and remarkable for hypoxia. Differential diagnosis: Reactive airway disease, pneumonia, pneumothorax, COPD, CHF, infections, cardiac ischemia, pulmonary embolism, musculoskeletal, gastrointestinal, as well as other pathologies. ER treatment provided: See below. Diagnostics interpreted by me: ECG: Normal sinus rhythm, 87 bpm, no ectopy, no overt ST elevation or depression, QTC 470, QRS 102. Cardiac Monitoring: An order for continuous cardiac monitoring was placed and demonstrated normal sinus rhythm, 87 bpm, no ectopy. Laboratory studies: See below Imaging studies: See below Consultation(s): Case was discussed with LAURIE Hawkins hospitalist, who will evaluate the patient for admission. HPI: The patient is a pleasant 61-year-old gentleman with a past medical history of hypertension, BPH who presents to the emergency department for evaluation of worsening shortness of breath and low oxygen in setting being diagnosed with COVID-19 with symptoms that began approximately 11 days ago. The patient reports worsening feverishness, shortness of breath cough and chest tightness. He reports having intermittent nausea and vomiting and decreased appetite with decreased oral intake. He denies any diarrhea or urinary symptoms. He denies any prior history of smoking or lung disease. The patient reports that his is currently hospitalized secondary to COVID-19. He feels that they were likely exposed when they were visiting family in [place] and their son was the first to get sick. He has not been vaccinated for COVID-19 as initially he reports he hrut d talked it over with his provider and given he had a prior history of a "bad reaction" with his shingles vaccine they were going to review revisit the topic but he had yet to do this. ROS: See above HPI for pertinent positives & negatives. A total of 10 systems reviewed and were otherwise negative. PAST MEDICAL HISTORY:See Below PAST SURGICAL HISTORY:See Below FAMILY HISTORY:See Below SOCIAL HISTORY:See Below HOME MEDICATIONS:See Below ALLERGIES:See Below VITALS:See Below PHYSICAL EXAMINATION: GENERAL: Awake, alert, uncomfortable, ill-appearing, in no distress HENT: Normocephalic, atraumatic. Oropharynx dry mucous membranes. EYES: Normal conjunctiva. Sclera non-icteric. NECK: Supple. No nuchal rigidity. FROM. No JVD. RESPIRATORY: Intermittent wheezes and rhonchi. Mild increased work of breathing but no overt distress. CARDIAC: Regular rate, normal rhythm. Extremities warm and well perfused. Pulses equal. ABDOMEN: Soft, non-distended. No tenderness to palpation. No rebound or guarding. No masses. RECTAL: Deferred. MUSCULOSKELETAL: Chest examination reveals no tenderness. The back is symmetrical on inspection without obvious abnormality. There is no CVA tenderness to palpation. No joint edema. LOWER EXTREMITIES: Calves are equal size bilaterally and non-tender. No edema. No discoloration. NEURO: Normal sensorium. No sensory or motor deficits noted. SKIN: No rash or jaundice noted. ED COURSE: Critical Care: I have personally spent greater than 75 minutes of critical care time in the direct management of this patient. This includes bedside care, interpretation of diagnostic studies, and testing, discussion with consultants, patient, and family members, and other required patient management activities. This 75 minutes is in excess of all separately billable procedures. Will Buenrostro MD Past Med/Surg History Medical History Basal cell carcinoma COVID-19 Gout Hypertension Testicular pain Tick bite Surgical History H/O vasectomy Hx of cholecystectomy Hx of colonoscopy Family History Grandmother (Paternal) Hypertension Grandfather (Paternal) Hypertension Father Bladder cancer Social History Smoking Status: Never smoker Hx Alcohol Use: No Hx Substance Use: No Preferred Language: Welsh Communication Ability: Effective Aircraft Dispatcher Required: No Beliefs That Will Affect Care: None marital status: Current Living Situation: Spouse current occupational status: employed Other Information That Helps Us Care for You: No Feels Safe at Home: Yes Safety Concerns: Feels Safe At This Time Assistive Devices: Glasses and Oxygen - Continuous Allergies Allergies Allergy/AdvReac Type Severity Reaction Status Date / Time allopurinol AdvReac Unknown Elevated Verified 03/20/21 15:29 liver panels. morphine AdvReac Unknown slows Verified 03/20/21 15:29 heart rate Home Meds Home Medications Medication Instructions Recorded Confirmed amlodipine 10 mg tablet 10 mg PO DAILY 06/22/20 03/20/21 losartan 100 mg tablet 100 mg PO DAILY 06/22/20 03/20/21 mupirocin 2 % topical ointment 1 applic TOPICAL UD 06/22/20 03/20/21 prednisone 20 mg tablet 20 mg PO DAILY 06/22/20 03/20/21 Previous Rx's Medication Instructions Recorded solifenacin 10 mg tablet (Vesicare) 10 mg PO DAILY #30 tab 10/13/20 Results & Data (ED) Vital Signs Vital Signs - 24 hr 03/20/21 12:03 03/20/21 12:10 03/20/21 12:30 Temperature 37.0 C Temperature Source Oral Pulse Rate 87 87 84 Pulse Rate from SpO2 Sensor 86 84 Pulse Rhythm Regular Respiratory Rate 26 H 27 H 26 H Respiratory Effort / Characteristics Spontaneous Labored Respiratory Depth Normal Respiratory Pattern Regular Blood Pressure 124/73 124/73 129/75 Blood Pressure Mean 90 90 93 Pulse Oximetry 84 L 95 95 Oxygen Delivery Method Room Air Oxygen Flow Rate Sepsis Recent Fever Within 48 Hours No Sepsis New/Unexplained Change in Mental Status No Sepsis Action Taken by Nursing No Action Required 03/20/21 13:00 03/20/21 13:30 03/20/21 14:00 Temperature Temperature Source Pulse Rate 83 83 85 Pulse Rate from SpO2 Sensor 83 82 85 Pulse Rhythm Respiratory Rate 25 H 26 H 24 Respiratory Effort / Characteristics Respiratory Depth Respiratory Pattern Blood Pressure 137/84 136/78 114/66 Blood Pressure Mean 101 97 82 Pulse Oximetry 95 93 90 Oxygen Delivery Method Non-rebreather Non-rebreather Non-rebreather Oxygen Flow Rate 15 15 15 Sepsis Recent Fever Within 48 Hours Sepsis New/Unexplained Change in Mental Status Sepsis Action Taken by Nursing 03/20/21 14:30 03/20/21 15:00 Temperature Temperature Source Pulse Rate 87 86 Pulse Rate from SpO2 Sensor 87 85 Pulse Rhythm Respiratory Rate Respiratory Effort / Characteristics Respiratory Depth Respiratory Pattern Blood Pressure 122/73 122/70 Blood Pressure Mean 89 87 Pulse Oximetry 91 89 L Oxygen Delivery Method Non-rebreather Non-rebreather Oxygen Flow Rate 15 15 Sepsis Recent Fever Within 48 Hours Sepsis New/Unexplained Change in Mental Status Sepsis Action Taken by Nursing Laboratory Data Attestation: I reviewed the patient's lab results. Result diagrams: 03/20/21 12:26 03/20/21 12: Lab Results 03/20/21 03/20/21 03/20/21 Range/Units 12:26 12:26 12:26 WBC 8.33 (4.8-10.8) K/uL RBC 4.77 (4.7-6.1) M/uL Hgb 14.9 (14.0-18.0) g/dL Hct 42.2 (42-52) % MCV 88.5 (80-100) fL MCH 31.2 (25-34) pg MCHC 35.3 (32-36) g/dL RDW Std Deviation 44.0 (36.4-46.3) fL RDW Coeff of Sujit 13.5 (11.5-14.5) % Plt Count 177 (130-400) K/uL MPV 9.8 (7.4-10.4) fL Immature Gran % (Auto) 0.4 % Neut % (Auto) 89.4 % Lymph % (Auto) 6.7 % Bryan % (Auto) 3.4 % Eos % (Auto) 0.0 % Baso % (Auto) 0.1 % Neut # (Auto) 7.45 H (1.4-6.5) K/uL Lymph # (Auto) 0.56 L (1.2-3.4) K/uL Bryan # (Auto) 0.28 (0.11-0.59) K/uL Eos # (Auto) 0.00 (0-0.5) K/uL Baso # (Auto) 0.01 (0-0.2) K/uL Immature Gran # (Auto) 0.03 H (0.00-0.02) K/uL Sodium 142 (136-145) mmol/L Potassium 3.2 L (3.5-5.1) mmol/L Chloride 108 H (98-107) mmol/L Carbon Dioxide 26 (21-32) mmol/L Anion Gap 8.0 (3-11) BUN 35 H (7-18) mg/dl Creatinine 1.61 H (0.6-1.4) mg/dl Est Cr Clr Drug Dosing 61.8 ml/min Est GFR ( Amer) 53.1 ml/min Est GFR (Non-Af Amer) 45.8 ml/min BUN/Creatinine Ratio 21.7 H (10-20) Glucose 146 H (70-99) mg/dl Calcium 8.8 (8.5-10.1) mg/dl Phosphorus 3.1 (2.5-4.9) mg/dl Magnesium 1.9 (1.8-2.4) mg/dl Total Bilirubin 0.5 (0.2-1) mg/dl Direct Bilirubin 0.2 (0-0.2) mg/dl AST 158 H (15-37) U/L ALT 149 H (12-78) U/L Alkaline Phosphatase 122 H (45-117) U/L Troponin I < 0.015 (0-0.045) ng/ml NT-Pro-B Natriuret Pep (0-900) pg/ml Total Protein 7.1 (6.4-8.2) gm/dl Albumin 3.0 L (3.4-5.0) gm/dl Globulin 4.1 H (2.5-4.0) gm/dl Albumin/Globulin Ratio 0.7 L (0.9-2) COVID-19 Eval Order SARS-CoV-2 (PCR) (Negative) 03/20/21 03/20/21 03/20/21 Range/Units 13:24 13:24 15:05 WBC (4.8-10.8) K/uL RBC (4.7-6.1) M/uL Hgb (14.0-18.0) g/dL Hct (42-52) % MCV (80-100) fL MCH (25-34) pg MCHC (32-36) g/dL RDW Std Deviation (36.4-46.3) fL RDW Coeff of Sujit (11.5-14.5) % Plt Count (130-400) K/uL MPV (7.4-10.4) fL Immature Gran % (Auto) % Neut % (Auto) % Lymph % (Auto) % Bryan % (Auto) % Eos % (Auto) % Baso % (Auto) % Neut # (Auto) (1.4-6.5) K/uL Lymph # (Auto) (1.2-3.4) K/uL Bryan # (Auto) (0.11-0.59) K/uL Eos # (Auto) (0-0.5) K/uL Baso # (Auto) (0-0.2) K/uL Immature Gran # (Auto) (0.00-0.02) K/uL Sodium (136-145) mmol/L Potassium (3.5-5.1) mmol/L Chloride (98-107) mmol/L Carbon Dioxide (21-32) mmol/L Anion Gap (3-11) BUN (7-18) mg/dl Creatinine (0.6-1.4) mg/dl Est Cr Clr Drug Dosing ml/min Est GFR ( Amer) ml/min Est GFR (Non-Af Amer) ml/min BUN/Creatinine Ratio (10-20) Glucose (70-99) mg/dl Calcium (8.5-10.1) mg/dl Phosphorus (2.5-4.9) mg/dl Magnesium (1.8-2.4) mg/dl Total Bilirubin (0.2-1) mg/dl Direct Bilirubin (0-0.2) mg/dl AST (15-37) U/L ALT (12-78) U/L Alkaline Phosphatase (45-117) U/L Troponin I (0-0.045) ng/ml NT-Pro-B Natriuret Pep 67 (0-900) pg/ml Total Protein (6.4-8.2) gm/dl Albumin (3.4-5.0) gm/dl Globulin (2.5-4.0) gm/dl Albumin/Globulin Ratio (0.9-2) COVID-19 Eval Order Covid19 at [facility] SARS-CoV-2 (PCR) POSITIVE A* (Negative) Administered Medications Enoxaparin Sodium (Enoxaparin Inj 60 Mg/0.6 Ml Syr) 60 mg SQ Q12H MARCIA Stop: 04/19/21 16:59 Last Admin: 03/20/21 20:45 Dose: 60 mg Documented by: [id number] Potassium Chloride (Potassium Chloride Crtab 20 Meq Tabcr) 20 meq PO BID MARCIA Stop: 04/19/21 20:59 Last Admin: 03/20/21 20:42 Dose: 20 meq Documented by: [id number] Discontinued Medications Albuterol (Ipratropium [place]/Albuterol Respimat Inh) 2 puffs INH NOW STA Stop: 03/20/21 12:58 Last Admin: 03/20/21 13:18 Dose: 2 puffs Documented by: [id number] Dexamethasone Sodium Phosphate (DexamethasonePf 10 Mg/Ml Vial) 10 mg IV NOW ONE Stop: 03/20/21 12:57 Last Admin: 03/20/21 13:16 Dose: 10 mg Documented by: [id number] Furosemide (Furosemide 40 Mg/4 Ml Vial) 40 mg IV NOW STA Stop: 03/20/21 16:12 Last Admin: 03/20/21 16:50 Dose: 40 mg Documented by: [id number] Guaifenesin (Guaifenesin 600 Mg Tabcr) 600 mg PO NOW STA Stop: 03/20/21 12:57 Last Admin: 03/20/21 13:16 Dose: 600 mg Documented by: [id number] Sodium Chloride (Nss 1000ml) 2,000 mls @ 999 mls/hr IV .Q2H1M ONE Stop: 03/20/21 14:56 Last Infusion: 03/20/21 15:27 Dose: 0 mls/hr Documented by: [id number] Admin: 03/20/21 13:16 Dose: 999 mls/hr Documented by: [id number] Acetaminophen (Ofirmev) 1,000 mg in 100 mls @ 400 mls/hr IV NOW STA Stop: 03/20/21 13:10 Last Infusion: 03/20/21 13:39 Dose: 0 mls/hr Documented by: [id number] Admin: 03/20/21 13:17 Dose: 400 mls/hr Documented by: [id number] Famotidine (Pepcid 20mg Iv Push) 20 mg in 5 mls @ 2.5 mls/min IV NOW STA Stop: 03/20/21 12:57 Last Admin: 03/20/21 13:16 Dose: 2.5 mls/min Documented by: [id number] Potassium Chloride (K Miko / Wtr) 10 meq in 100 mls @ 100 mls/hr IV Q1H STA Stop: 03/20/21 16:36 Last Infusion: 03/20/21 18:13 Dose: 0 mls/hr Documented by: [id number] Admin: 03/20/21 16:50 Dose: 100 mls/hr Documented by: [id number] Ondansetron HCl (Ondansetron Inj 2 Mg/Ml 2 Ml Vial) 4 mg IV NOW STA Stop: 03/20/21 12:57 Last Admin: 03/20/21 13:16 Dose: 4 mg Documented by: [id number] Imaging Data Radiologist's Impression: Chest X-Ray 03/20/21 12:58 XR chest 1V portable CLINICAL HISTORY: covid, sob COMPARISON STUDY: Chest radiograph June 12, 2017. FINDINGS: Lung volumes are normal. No pneumothorax or pleural effusion is noted. Extensive right lung and moderate left lung airspace opacities are present. Note is made of cardiomegaly. IMPRESSION: Bilateral airspace opacities suggestive of viral pneumonia. Radiographic follow up to ensure resolution is recommended. ACT 112: Negative or not required by law. Electronically signed by: Floyd Neal M.D. 03/20/2021 1:46 PM Discharge Plan Visit Data Chief Complaint: Illness Stated Complaint: COVID ED Provider: Will Buenrostro Discharge Problem: Pneumonia due to COVID-19 virus, Acute respiratory failure with hypoxia, Renal insufficiency Patient Disposition: Admitted As Inpatient Discharge Instructions Interventions: ED Discharge Assessment Last Done: 03/20/21 16:09
[2021-03-20] MEDS ORDERED: POTASSIUM CHLORIDE / WTR 10 MEQ/100 ML PLCT IV STA (15:37)
[2021-03-20] MEDS ORDERED: FUROSEMIDE 40 MG/4 ML VIAL IV STA (16:11)
[2021-03-20 17:36] LABS: Appearance Urine Clear (Clear); Bacteria Urine Automated Negative (Negative); Bilirubin Urine Negative (Negative); Blood Urine Negative (Negative); Color Urine Yellow; Epithelial Cell Urine Auto >30 /lpf (0-5); Glucose Urine UA Negative (Negative); Ketones Urine Trace (Negative); Leukocyte Esterase Urine Negative (Negative); Nitrite Urine Negative (Negative); Protein Urine 1+ (Negative); RBC Urine Automated 0-4 /hpf (0-4); Specific Gravity Urine 1.016 (1.000-1.030); Urobilinogen Urine Negative (Negative); pH Urine 5.5 (4.5-7.5)
[2021-03-20] MEDS: POTASSIUM CHLORIDE CRTAB 20 MEQ TABCR PO SCH (20:42)
[2021-03-20] MEDS: ENOXAPARIN INJ 60 MG/0.6 ML SYR SQ SCH (20:45)
[2021-03-20] MEDS ORDERED: guaiFENesin/CODEINE 100MG/10MG 5ML UDC PO PRN (22:18)
[2021-03-21 06:36] LABS: Hematocrit (blood only) 39.4 % (42-52); Hemoglobin 13.7 g/dL (14.0-18.0); Mean Corpuscular Hemoglobin 30.6 pg (25-34); Mean Corpuscular Hgb Conc 34.8 g/dL (32-36); Mean Corpuscular Volume 87.9 fL (80-100); Mean Platelet Volume 9.8 fL (7.4-10.4); Platelet Count 217 K/uL (130-400); RDW Coefficient of Variation 13.8 % (11.5-14.5); RDW Standard Deviation 44.8 fL (36.4-46.3); Red Blood Count 4.48 M/uL (4.7-6.1); White Blood Count 10.94 K/uL (4.8-10.8)
[2021-03-21 07:03] LABS: Basophils # (auto) 0.01 K/uL (0-0.2); Basophils % (auto) 0.1 %; Echinocytes 1+; Immature Granulocytes # (auto) 0.02 K/uL (0.00-0.02); Immature Granulocytes % (auto) 0.2 %; Lymphocytes % (auto) 5.5 %; Monocytes # (auto) 0.29 K/uL (0.11-0.59); Monocytes % (auto) 2.7 %; Neutrophils # (auto) 10.02 K/uL (1.4-6.5); Neutrophils % (auto) 91.5 %
[2021-03-21 07:11] LABS: Albumin Level 2.6 gm/dl (3.4-5.0); BUN Creatinine Ratio 25.4 (10-20); Calcium 8.3 mg/dl (8.5-10.1); Est GFR (African American) 66.9 ml/min; Est GFR (Non-African American) 57.7 ml/min; Potassium 3.4 mmol/L (3.5-5.1)
[2021-03-21 07:14] LABS: Albumin Globulin Ratio 0.7 (0.9-2); Bilirubin,Total 0.4 mg/dl (0.2-1); C Reactive Protein 18.2 mg/dl (0-0.29); Globulin 3.8 gm/dl (2.5-4.0); Total Protein 6.4 gm/dl (6.4-8.2)
[2021-03-21] MEDS ORDERED: FUROSEMIDE 40 MG in SYRINGE 0 ML IV ONE (08:00)
[2021-03-21] MEDS ORDERED: FUROSEMIDE 40 MG/4 ML VIAL IV ONE (08:00)
[2021-03-21] MEDS: POTASSIUM CHLORIDE / WTR 10 MEQ/100 ML PLCT IV SCH ×3 (08:04→10:15)
[2021-03-21] MEDS: dexAMETHasone 6 MG in SYRINGE 0 ML IV SCH (08:04)
[2021-03-21] MEDS: POTASSIUM CHLORIDE CRTAB 20 MEQ TABCR PO SCH ×2 (08:05→20:27)
[2021-03-21] MEDS: ENOXAPARIN INJ 60 MG/0.6 ML SYR SQ SCH ×2 (08:05→20:27)
[2021-03-21] MEDS: MAGNESIUM OXIDE 400 MG TAB PO SCH (08:05)
[2021-03-21] MEDS: ACETAMINOPHEN 325 MG TAB PO PRN ×2 (08:06→13:07)
[2021-03-21] MEDS: HYDROcodone/HOMATROPINE SYRUP 5MG/1.5MG 5ML UDP PO PRN ×3 (08:13→20:32)
[2021-03-21] MEDS: BENZONATATE 100 MG CAPSULE PO SCH ×3 (08:13→20:26)
--- NOTE | 2021-03-21 08:30 | Communication Note ---
Date of Service: March 21, 2021 ethics consult note (given time sensitive nature, was unable to arrange a meeting of members together at once, but thus far have reviewed the situation my self and discussed with dr cruz and ydlan espinoza) asked to evaluate situation in regards to tocilzumab, unvaccinated status, growing national shortage in discussion with dr villegas, and on chart review, patient does appear an appropriate candidate for this treatment autonomy: not an issue with this particular case beneficence: tociluzmab has a suggested mortality benefit in situations such as what the patient is currently experiencing non-malificence: withholding treatment, based on the above noted mortality benefit with treatment, will increase pt risk of mortality by not treating. further, med does show a risk of increased secondary infection but given the clear and present risk of deterioration with covid, would not withhold a benefit for the actual current situation to mitigate a hypothetical risk that may not happen justice: if we as an institution were down to one dose of tocilizumab, and had two equally ill patients with similar comorbidites/etc, then one could consider vaccination status as a "tiebreaker" given that vaccinated patients would have a higher rate of survival. however, in discussion with pharmacy we are not down to our last dose, and also to the best of my knowledge we don't have a situation upstairs where multiple people are simultaneously requiring the doses we do possess. dr cruz wisely noted that we treat people for consequences of questionable decisions as a matter of routine - citing management of drunk- driving injuries as a frequent example. therefore, it is in the opinion of the ethics committee that treatment should absolutely be administered if clinically warranted, as seems to be the case in discussion w dr villegas and on chart review
--- NOTE | 2021-03-21 08:38 | Hospitalist Progress Note ---
Date of Service March 21, 2021 Assessment & Plan (1) Acute respiratory failure with hypoxia: Plan: due to COVID 19 pneumonia, bilateral infiltrates on CXR currently prone position on BIPAP, 10/5, 70% Fio2 breathing is not labored but using some abdominal muscles using Lasix 40mg IV now to keep lungs dry, has grant for accurate output measurement consult pulmonology for consideration of Tocilizumab since his CRP is 18, on BIPAP since admission at high risk of getting worse and requiring intubation, stable on BIPAP currently (2) Pneumonia due to COVID-19 virus: Plan: Symptom onset: Proximately March 09, says he just got dyspnea and cough a few days ago, really short of breath on 03/20 so he came to the ED bilateral infiltrates on CXR, CRP is 18 this morning Dexamethasone 6mg IV daily, day 2 add Rocephin/Zithromax as his cough is productive, give 5 days of treatment too far along in course of illness to give Remdesivir, no benefit consult pulmonology to consider Tocilizumab as CRP 18 and on BIPAP < 72 hours into admission continue prone position, not eating right now due to continuous BIPAP requirement might try high flow later today and see if he can eat Lasix 40mg IV now to keep lungs dry CTA chest: no pulmonary embolism, just shows diffuse infiltrates (3) ROSARIO (acute kidney injury): Plan: - Baseline creatinine less than 1, acutely elevated to 1.61 Received 2 L NSS while in ER. - no further fluid, actually gave Lasix 40mg IV yesterday evening with potassium give Lasix 40mg IV again this morning, Cr is 1.33, need to keep negative fluid balance K is 3.4, giving KCl 20 BID and giving 3 K riders this morning to try to keep K closer to 4.0 (4) Hypokalemia: Plan: K is 3.4, got Lasix yesterday and ordered this morning continue 20mEq BID and give 3 more K riders this morning (5) Sensorineural hearing loss (SNHL) of left ear with unrestricted hearing of right ear: (6) Uvular hypertrophy: (7) BPH loc w urin obs/LUTS: Plan: Urinary bottle at bedside, may condom cath if needed Follow clinically Plan: DVT prophylaxis: Covid dosed Lovenox Diet: Regular, hold diet if patient unable to eat/drink safely without desaturation Disposition: COVID unit, PCU CODE STATUS: Full code, discussed with patient guarded prognosis, will evaluate for Tocilizumab Admission and Anticipated Discharge Date Admission Date: March 20, 2021 Subjective patient is laying prone, not in distress right now, breathing in the mid to high teens saturations 99% on BIPAP 10/5 70% FiO2 making urine via grant, Lasix 40mg IV this morning, getting potassium reviewed labs, CRP is 18, would be a candidate for Tocilizumab, will consult Pulmonary he says he was sick for about 2 weeks but the cough and dyspnea just started maybe 3-4 days ago then he noticed yesterday he could not even walk up the stairs without extreme dyspnea so he came to the ED reviewed chart, bilateral infiltrates on CXR consistent with pneumonia Cr was 1.66 on admission, now it is 1.33, K is 3.4 patient is very compliant with being prone, he understands it will help more than anything Review of Systems Review of Systems: All systems reviewed & are unremarkable except as noted in Subjective Constitutional: + fatigue and + weakness; no fever Respiratory: + cough, + dyspnea, + dyspnea on exertion and + sputum production; no wheezing Cardiovascular: no chest pain and no edema Gastrointestinal: no abdominal pain, no nausea, no vomiting, no constipation and no diarrhea/loose stools Physical Exam Constitutional: well developed, + ill appearing, + obese and comfortable; no acute distress Neck: trachea midline, no thyromegaly Respiratory: + uses accessory muscles (belly breathing slightly) and + cough; no respiratory distress, no labored breathing and not tachypneic Cardiovascular: RRR, no murmur, no edema Gastrointestinal (Abdomen): normal bowel sounds, soft, nontender, no hepatosplenomegaly Musculoskeletal: no cyanosis or clubbing, extremities motor strength 5/5 Skin: no rashes, warm and dry Neurologic: normal touch/pain/proprioception, CN's II-XI intact bilaterally, moves all extremities and awake; no focal motor deficits Psychiatric: A+Ox3, euthymic affect Results & Data Results & Data ([facility]) Vital Signs (Past 12 Hours) Vital Signs Temp Pulse Pulse Resp BP Pulse Ox 03/21/21 07:26 66 34 H 94 03/21/21 06:48 37.0 C 63 24 148/58 H 94 03/21/21 03:46 37.4 C 69 20 148/93 H 95 03/21/21 03:23 67 21 93 03/20/21 23:56 79 03/20/21 22:48 78 28 H 99 03/20/21 21:48 38.4 C H 80 23 154/78 H 98 Laboratory Results Laboratory Results - last 24 hr 03/20/21 03/20/21 03/20/21 12:26 12:26 12:26 WBC 8.33 RBC 4.77 Hgb 14.9 Hct 42.2 MCV 88.5 MCH 31.2 MCHC 35.3 RDW Std Deviation 44.0 RDW Coeff of Sujit 13.5 Plt Count 177 MPV 9.8 Immature Gran % (Auto) 0.4 Neut % (Auto) 89.4 Lymph % (Auto) 6.7 [place] % (Auto) 3.4 Eos % (Auto) 0.0 Baso % (Auto) 0.1 Neut # (Auto) 7.45 H Lymph # (Auto) 0.[address] [place] # (Auto) 0.28 Eos # (Auto) 0.00 Baso # (Auto) 0.01 Immature Gran # (Auto) 0.03 H Echinocytes Sodium 142 Potassium 3.2 L Chloride 108 H Carbon Dioxide 26 Anion Gap 8.0 BUN 35 H Creatinine 1.61 H Est Cr Clr Drug Dosing 61.8 Est GFR ( Amer) 53.1 Est GFR (Non-Af Amer) 45.8 BUN/Creatinine Ratio 21.7 H Glucose 146 H Calcium 8.8 Phosphorus 3.1 Magnesium 1.9 Total Bilirubin 0.5 Direct Bilirubin 0.2 AST 158 H ALT 149 H Alkaline Phosphatase 122 H Troponin I < 0.015 C-Reactive Protein NT-Pro-B Natriuret Pep Total Protein 7.1 Albumin 3.0 L Globulin 4.1 H Albumin/Globulin Ratio 0.7 L Urine Color Urine Appearance Urine pH Ur Specific [place] Urine Protein Urine Glucose (UA) Urine Ketones Urine Blood Urine Nitrite Urine Bilirubin Urine Urobilinogen Ur Leukocyte Esterase Urine WBC (Auto) Urine RBC (Auto) U Hyaline Cast (Auto) U Epithel Cells (Auto) Urine Bacteria (Auto) Ur Renal Epithelial Cell COVID-19 Eval Order SARS-CoV-2 (PCR) 03/20/21 03/20/21 03/20/21 13:24 13:24 15:05 WBC RBC Hgb Hct MCV MCH MCHC RDW Std Deviation RDW Coeff of Sujit Plt Count MPV Immature Gran % (Auto) Neut % (Auto) Lymph % (Auto) [place] % (Auto) Eos % (Auto) Baso % (Auto) Neut # (Auto) Lymph # (Auto) [place] # (Auto) Eos # (Auto) Baso # (Auto) Immature Gran # (Auto) Echinocytes Sodium Potassium Chloride Carbon Dioxide Anion Gap BUN Creatinine Est Cr Clr Drug Dosing Est GFR ( Amer) Est GFR (Non-Af Amer) BUN/Creatinine Ratio Glucose Calcium Phosphorus Magnesium Total Bilirubin Direct Bilirubin AST ALT Alkaline Phosphatase Troponin I C-Reactive Protein NT-Pro-B Natriuret Pep 67 Total Protein Albumin Globulin Albumin/Globulin Ratio Urine Color Urine Appearance Urine pH Ur Specific [place] Urine Protein Urine Glucose (UA) Urine Ketones Urine Blood Urine Nitrite Urine Bilirubin Urine Urobilinogen Ur Leukocyte Esterase Urine WBC (Auto) Urine RBC (Auto) U Hyaline Cast (Auto) U Epithel Cells (Auto) Urine Bacteria (Auto) Ur Renal Epithelial Cell COVID-19 Eval Order Covid19 at [facility] SARS-CoV-2 (PCR) POSITIVE A* 03/20/21 03/21/21 03/21/21 17:00 05:50 05:50 WBC 10.94 H RBC 4.48 L Hgb 13.7 L Hct 39.4 L MCV 87.9 MCH 30.6 MCHC 34.8 RDW Std Deviation 44.8 RDW Coeff of Sujit 13.8 Plt Count 217 MPV 9.8 Immature Gran % (Auto) 0.2 Neut % (Auto) 91.5 Lymph % (Auto) 5.5 [place] % (Auto) 2.7 Eos % (Auto) 0.0 Baso % (Auto) 0.1 Neut # (Auto) 10.02 H Lymph # (Auto) 0.[address] [place] # (Auto) 0.29 Eos # (Auto) 0.00 Baso # (Auto) 0.01 Immature Gran # (Auto) 0.02 Echinocytes 1+ Sodium 145 Potassium 3.4 L Chloride 115 H Carbon Dioxide 24 Anion Gap 6.0 BUN 34 H Creatinine 1.33 Est Cr Clr Drug Dosing 76.0 Est GFR ( Amer) 66.9 Est GFR (Non-Af Amer) 57.7 BUN/Creatinine Ratio 25.4 H Glucose 180 H Calcium 8.3 L Phosphorus Magnesium Total Bilirubin 0.4 Direct Bilirubin AST 116 H ALT 109 H Alkaline Phosphatase 104 Troponin I C-Reactive Protein 18.20 H NT-Pro-B Natriuret Pep Total Protein 6.4 Albumin 2.6 L Globulin 3.8 Albumin/Globulin Ratio 0.7 L Urine Color Yellow Urine Appearance Clear Urine pH 5.5 Ur Specific [place] 1.016 Urine Protein 1+ H Urine Glucose (UA) Negative Urine Ketones Trace H Urine Blood Negative Urine Nitrite Negative Urine Bilirubin Negative Urine Urobilinogen Negative Ur Leukocyte Esterase Negative Urine WBC (Auto) 10-30 H Urine RBC (Auto) 0-4 U Hyaline Cast (Auto) 10-30 H U Epithel Cells (Auto) >30 H Urine Bacteria (Auto) Negative Ur Renal Epithelial Cell 5-10 H COVID-19 Eval Order SARS-CoV-2 (PCR) Medications Administered Current Inpatient Medications Acetaminophen (Acetaminophen 325 Mg Tab) 650 mg PO Q4H PRN PRN Reason: Pain or Fever Stop: 04/19/21 16:45 Last Admin: 03/21/21 08:06 Dose: 650 mg Documented by: Albuterol (Albut/Ipratrop 3mg/0.5mg Neb 3 Ml Vial) 3 ml NEB Q4R PRN PRN Reason: Shortness of Breath/Wheezing Stop: 04/19/21 16:45 Benzonatate (Benzonatate 100 Mg Capsule) 100 mg PO TID [facility] Stop: 04/20/21 08:59 Last Admin: 03/21/21 08:13 Dose: 100 mg Documented by: Enoxaparin Sodium (Enoxaparin Inj 60 Mg/0.6 Ml Syr) 60 mg SQ Q12H MARCIA Stop: 04/19/21 16:59 Last Admin: 03/21/21 08:05 Dose: 60 mg Documented by: Hydrocodone Bit/Homatropine Methylb (Hydrocodone/Homatropine Syrup 5mg/1.5mg 5ml Udp) 5 ml PO Q6 PRN PRN Reason: Cough Stop: 04/04/21 07:09 Last Admin: 03/21/21 08:13 Dose: 5 ml Documented by: Dexamethasone 6 mg/ Syringe 1.5 mls @ 1 mls/min IV DAILY [facility] Stop: 03/31/21 08:59 Last Admin: 03/21/21 08:04 Dose: 1 mls/min Documented by: Potassium Chloride (K Miko / Wtr) 10 meq in 100 mls @ 100 mls/hr IV Q1H MARCIA Stop: 03/21/21 10:59 Last Admin: 03/21/21 08:04 Dose: 100 mls/hr Documented by: Magnesium Oxide (Magnesium Oxide 400 Mg Tab) 400 mg PO QAM MARCIA Stop: 04/20/21 08:59 Last Admin: 03/21/21 08:05 Dose: 400 mg Documented by: Potassium Chloride (Potassium Chloride Crtab 20 Meq Tabcr) 20 meq PO BID MARCIA Stop: 04/19/21 20:59 Last Admin: 03/21/21 08:05 Dose: 20 meq Documented by: PG Care Time/CCT Total # of Minutes Spent Total Time Spent with Patient: Total time spent is greater than 50% in coordination of care (as documented) at patient's floor/unit and/or counseling patient: Coding Level of Care Code 55552 Subseq Hosp Care Lvl 3 Diagnoses Pneumonia due to COVID-19 virus U07.1; J12.82 ROSARIO (acute kidney injury) N17.9 Hypokalemia E87.6 Sensorineural hearing loss (SNHL) of left ear with unrestricted hearing of right ear H90.42 Uvular hypertrophy K13.79 BPH loc w urin obs/LUTS N40.1 Acute respiratory failure with hypoxia J96.01
[2021-03-21] MEDS: cefTRIAXone SODIUM 2,000 MG in DEXTROSE 5% 50 ML IV SCH (09:39)
[2021-03-21] MEDS ORDERED: TOCILIZUMAB 400 MG, TOCILIZUMAB 200 MG in 0.9 % SODIUM CHLORIDE 70 ML IV ONE (09:45)
[2021-03-21] MEDS ORDERED: SODIUM CHLORIDE 0.9% IV ONE (10:00)
[2021-03-21] MEDS ORDERED: TOCILIZUMAB IV ONE (10:00)
[2021-03-21] MEDS: AZITHROMYCIN 500 MG in DEXTROSE 5% 250 ML IV SCH (10:32)
--- NOTE | 2021-03-21 10:52 | Pulmonary Consultation ---
Date of Consultation March 21, 2021 Assessment & Plan (1) Acute respiratory failure with hypoxia: (2) Pneumonia due to COVID-19 virus: (3) ROSARIO (acute kidney injury): (4) Transaminitis: 61-year-old male with a history of hypertension and obesity who presented to the hospital due to viral pneumonia. Acute hypoxemic respiratory failure secondary to viral pneumonia: Agree with Decadron treatment at this time. Doubt bacterial infection. Will defer antibiotic therapy to the patient's hospitalist. Procalcitonin can be considered and if this is negative, would discontinue antibiotics. His CRP is very elevated and he is a candidate for tocilizumab therapy. Pharmacy was cont acted and he will be administered tocilizumab. He understands the risks and benefits of tocilizumab and would like to proceed with therapy. Agree with awake proning as much as possible. BiPAP therapy to be used in conjunction with high flow nasal cannula on a as needed basis. Would recommend the use of BiPAP while sleeping. We will have a low threshold for mechanical ventilation and intubation. Recommend repeating CRP level tomorrow. Continue with DVT prophylaxis. Transaminitis: Relative contraindication to tocilizumab. His AST is less than 3 times the upper limit of normal and thus he would still qualify for tocilizumab. Trend LFTs. Acute kidney injury: This is resolving. 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 Thank you for the consultation. Pulmonary will continue to follow along with you. Case was discussed with the patient's hospitalist and bedside nurse. History of Present Illness Reason for Consultation: Acute hypoxemic respiratory failure secondary to Covid viral pneumonia Attending Physician: Fco Llanos DO History of Present Illness 61-year-old male with a history of BPH, hypertension obesity with a BMI of 37.3 presenting to the hospital due to increasing shortness of breath. He was admitted yesterday evening and symptoms began around March 09. He had weakness and fevers. His is apparently sick and admitted to the hospital as well. He has had episodes of nausea. His shortness of breath and nausea symptoms have improved today. He is currently proning and on BiPAP support. He has had increasing oxygen demands throughout the day. He is feeling better well proning. His oxygenation has improved. He does have occasional chest tightness. He denies any history of lung disease. He is a non-smoker. He is not vaccinated as he had an adverse reaction to the shingles vaccine in the past. Labs were concerning for mild leukocytosis of 10,940. He is mildly hypokalemic with a potassium of 3.4. Creatinine is improved from 1.61-1.33. LFTs are mildly elevated and trending downwards. AST is currently 116. ALT 109. CRP is elevated to 18.20. Chest x-ray completed yesterday with bilateral airspace opacities concerning for viral pneumonia. He is 420 mL positive with his fluid balance. He is currently on Rocephin and azithromycin. Allergies Allergy/AdvReac Type Severity Reaction Status Date / Time allopurinol AdvReac Unknown Elevated Verified 03/20/21 15:29 liver panels. morphine AdvReac Unknown slows Verified 03/20/21 15:29 heart rate Home Medications Medication Instructions Recorded Confirmed Type amlodipine 10 mg tablet 10 mg PO DAILY 06/22/20 03/20/21 History losartan 100 mg tablet 100 mg PO DAILY 06/22/20 03/20/21 History mupirocin 2 % topical ointment 1 applic TOPICAL UD 06/22/20 03/20/21 History prednisone 20 mg tablet 20 mg PO DAILY 06/22/20 03/20/21 History solifenacin 10 mg tablet (Vesicare) 10 mg PO DAILY #30 tab 10/13/20 03/20/21 Rx Patient History Medical History (Updated 03/21/21 @ 10:47 by Lenin Montes MD) Basal cell carcinoma COVID-19 Gout Hypertension Testicular pain Tick bite Transaminitis Surgical History H/O vasectomy Hx of cholecystectomy Hx of colonoscopy Family History Grandmother (Paternal) Hypertension Grandfather (Paternal) Hypertension Father Bladder cancer Social History Smoking Status: Never smoker Hx Alcohol Use: No Hx Substance Use: No Preferred Language: Malay Communication Ability: 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 Patient is in mild distress. Patient is well-developed. Eyes: Pupils are equal round and reactive to light. Conjunctivae are normal. Anicteric sclera. Ears nose, mouth and throat: BiPAP mask is in place. No obvious deformities. Neck: Trachea is midline. Visual inspection is normal. Respiratory: Clear to auscultation bilaterally. Mild tachypnea. No use of accessory muscles. Cardiovascular: Regular rate and rhythm. No murmurs. No edema. Gastrointestinal: Normal bowel sounds, soft, nontender and nondistended. No hepatosplenomegaly noted. Musculoskeletal: No cyanosis. Patient is able to move all extremities. Strength is 5 out of 5 in the upper and lower extremities. Skin: No rashes, warm dry and intact. Neurologic: No obvious focal neurological deficits seen. Psychiatric: Alert and oriented x3 with a euthymic affect. Results & Data Results & Data ([facility]) Vital Signs (Past 12 Hours) Vital Signs Temp Pulse Pulse Resp BP Pulse Ox 03/21/21 07:26 66 34 H 94 03/21/21 06:48 98.6 F 63 24 148/58 H 94 03/21/21 03:46 99.3 F 69 20 148/93 H 95 03/21/21 03:23 67 21 93 03/20/21 23:56 79 03/20/21 22:48 78 28 H 99 Vital signs, labs and imaging personally reviewed PG Care Time/CCT Total # of Minutes Spent Total Time Spent with Patient: Total time spent is greater than 50% in coordination of care (as documented) at patient's floor/unit and/or counseling patient: Coding Level of Care Code 57491 Inpt Consult Level 5 Diagnoses Acute respiratory failure with hypoxia J96.01 Pneumonia due to COVID-19 virus U07.1; J12.82 ROSARIO (acute kidney injury) N17.9 Transaminitis R74.01
[2021-03-21] MEDS: FAMOTIDINE 20 MG in SYRINGE 3 ML IV SCH ×2 (13:07→20:28)
[2021-03-21] MEDS ORDERED: ATROPINE SULFATE 0.1 MG/ML 10ML SYR IV PRN (18:14)
[2021-03-22 06:19] LABS: Hematocrit (blood only) 39.7 % (42-52); Hemoglobin 13.6 g/dL (14.0-18.0); Mean Corpuscular Hemoglobin 30.5 pg (25-34); Mean Corpuscular Hgb Conc 34.3 g/dL (32-36); Mean Platelet Volume 9.7 fL (7.4-10.4); Platelet Count 250 K/uL (130-400); RDW Standard Deviation 45.9 fL (36.4-46.3); Red Blood Count 4.46 M/uL (4.7-6.1); White Blood Count 8.35 K/uL (4.8-10.8)
[2021-03-22 06:58] LABS: BUN Creatinine Ratio 38.2 (10-20); C Reactive Protein 9.75 mg/dl (0-0.29); Calcium 8.5 mg/dl (8.5-10.1); Creatinine Clr Calc Pharmacy 92.8 ml/min; Est GFR (African American) 85.1 ml/min; Est GFR (Non-African American) 73.4 ml/min; Magnesium 2.5 mg/dl (1.8-2.4); Potassium 3.9 mmol/L (3.5-5.1)
[2021-03-22] MEDS: HYDROcodone/HOMATROPINE SYRUP 5MG/1.5MG 5ML UDP PO PRN ×2 (08:31→18:08)
[2021-03-22] MEDS: ACETAMINOPHEN 325 MG TAB PO PRN ×2 (08:31→18:07)
[2021-03-22] MEDS: FAMOTIDINE 20 MG in SYRINGE 3 ML IV SCH ×2 (08:31→21:24)
[2021-03-22] MEDS: dexAMETHasone 6 MG in SYRINGE 0 ML IV SCH (08:31)
[2021-03-22] MEDS: cefTRIAXone SODIUM 2,000 MG in DEXTROSE 5% 50 ML IV SCH (08:31)
[2021-03-22] MEDS: BENZONATATE 100 MG CAPSULE PO SCH ×3 (08:31→21:16)
[2021-03-22] MEDS: MAGNESIUM OXIDE 400 MG TAB PO SCH (08:32)
[2021-03-22] MEDS: ENOXAPARIN INJ 60 MG/0.6 ML SYR SQ SCH ×2 (08:32→21:17)
[2021-03-22] MEDS: POTASSIUM CHLORIDE CRTAB 20 MEQ TABCR PO SCH ×2 (08:32→21:16)
--- NOTE | 2021-03-22 09:15 | Pulmonology Progress Note ---
Date of Service March 22, 2021 Assessment & Plan (1) Acute respiratory failure with hypoxia: (2) Pneumonia due to COVID-19 virus: (3) Transaminitis: Plan: 61-year-old male with a history of hypertension and obesity who presented to the hospital due to viral pneumonia. Chest x-ray 03/20/2021 personally reviewed: Portable film, moderate rate to the right, diffuse alveolar opacities appreciated bilaterally, increased cardiac silhouette --Acute hypoxic respiratory failure Secondary to multilobar COVID-19 pneumonia COVID-19 PCR positive 03/16/2021 CRP 18.2 --> 9.75 S/p Tocilizumab 03/21/2021 Continue with O2 supplementation to keep oxygen saturation between 90-92%. Awake proning will be helpful Continue with incentive spirometry Continue with flutter valve. Recommend patient to be kept euvolemic to negative balance --Transaminitis Trending down Continue to monitor Plan: In/out: Positive 275 mL since admission Repeat chest x-ray tomorrow Patient on azithromycin. QTc is 478 Would recommend to repeat EKG to monitor QTC Please note the above document was generated using voice recognition software. It may contain grammatical, syntax or spelling errors.Any formal questions or concerns about the content, text or information contained within the body of this dictation should be directly addressed to the provider for clarification. Admission and Anticipated Discharge Date Admission Date: March 20, 2021 Subjective Patient seen and examined at bedside. No acute distress, no adverse events overnight. Patient was on 15 L at time of examination saturating 90-91% He used BiPAP at night. Has been using incentive spirometry. Bringing up clear phlegm. Denies any hemoptysis. Fair appetite. He says that he is doing better compared to when he came to the hospital. Review of Systems Review of Systems: All systems reviewed & are unremarkable except as noted in Subjective Physical Exam Physical Exam: Constitutional: No acute distress HEENT: EOMI, PERRLA Respiratory system: Decreased air entry bilaterally, no wheeze, rhonchi, positive crackles bilateral lower lobes CVS: S1-S2 positive, no murmurs or gallops Abdomen: Soft, nontender, nondistended, positive bowel sounds x4, obese Extremities: +2 pulses bilaterally radialis/ dorsalis pedis, no cyanosis, no edema Neuro: Awake alert oriented x3 Psych: Normal mood and affect G/U: Positive Rogers Skin: no rashes, warm and dry Lymphatic: no cervical or axillary lymphadenopathy Results & Data Results & Data ([facility]) Vital Signs (Past 12 Hours) Vital Signs Temp Pulse Pulse Resp BP BP Pulse Ox 03/22/21 07:37 56 L 16 92 03/22/21 07:35 36.6 C 56 L 21 122/66 94 03/22/21 03:43 36.5 C 52 L 24 118/52 L 93 03/22/21 03:37 53 L 20 95 03/21/21 23:56 55 L 03/21/21 23:26 54 L 18 94 03/21/21 23:08 36.6 C 53 L 20 132/77 95 03/22/21 05:50 03/22/21 05:50 PG Care Time/CCT Total # of Minutes Spent Total Time Spent with Patient: Total time spent is greater than 50% in coordination of care (as documented) at patient's floor/unit and/or counseling patient: Coding Level of Care Code 47970 Subseq Hosp Care Lvl 3 Diagnoses Acute respiratory failure with hypoxia J96.01 Pneumonia due to COVID-19 virus U07.1; J12.82 Transaminitis R74.01
[2021-03-22] MEDS: AZITHROMYCIN 500 MG in DEXTROSE 5% 250 ML IV SCH (09:25)
--- NOTE | 2021-03-22 16:17 | Electrocardiogram Report ---
Test Reason : Blood Pressure : / mmHG Vent. Rate : 087 BPM Atrial Rate : 087 BPM P-R Int : 152 ms QRS Dur : 102 ms QT Int : 398 ms P-R-T Axes : 017 001 -14 degrees QTc Int : 478 ms Normal sinus rhythm Normal ECG When compared with ECG of 26-JUL-2013 06:22, Vent. rate has increased BY 33 BPM Confirmed by Lei Wolf ([id number]) on 03/22/2021 4:16:41 PM Referred By: REFERRED SELF Confirmed By:Lei Wolf
--- NOTE | 2021-03-22 18:21 | Hospitalist Progress Note ---
Date of Service March 22, 2021 Assessment & Plan (1) Acute respiratory failure with hypoxia: Plan: due to COVID 19 pneumonia, bilateral infiltrates on CXR Was requiring prone positioning and BiPAP while awake, but now weaned down to wall high flow nasal cannula at 12 L during the day Continue BiPAP at nighttime No respiratory distress and looks improved Received 1 dose of Lasix 40mg IV on 03/21 keep lungs dry, had grant for accurate output measurement was discontinued today consulted pulmonology for consideration of Tocilizumab since his CRP is 18, on BIPAP since admission-he was given 1 dose on 03/21 Overall much improved Continue dexamethasone Continue antitussives Continue flutter valve, incentive spirometry, mobilization (2) Pneumonia due to COVID-19 virus: Plan: Symptom onset: approximately March 09, says he just got dyspnea and cough a few days prior to admission-became really short of breath on 03/20 so he came to the ED bilateral infiltrates on CXR, CRP is 18 and now decreased to 9 after receiving Tocilizumab and dexamethasone Continue dexamethasone 6mg IV daily, day 3 Continue Rocephin/Zithromax as his cough is productive, give 5 days of treatment too far along in course of illness to give Remdesivir, no benefit consult pulmonology for Tocilizumab therapy which she received as CRP 18 and on BIPAP < 72 hours into admission continue prone position awake and with sleeping Continue supplemental O2 and wean off as able to Lasix as needed keep wound dry -Check ECG in the morning to follow QT while on azithromycin CTA chest: no pulmonary embolism, just shows diffuse infiltrates (3) ROSARIO (acute kidney injury): Plan: - Baseline creatinine less than 1, acutely elevated to 1.61 on admission and now back to normal Received 2 L NSS while in ER. - no further fluid, actually gave Lasix 40mg IV x2 doses Continue KCl 20 BID to try to keep K closer to 4.0 (4) Hypokalemia: Plan: Now resolved with potassium replacement Follow BMP (5) Sensorineural hearing loss (SNHL) of left ear with unrestricted hearing of right ear: Plan: Noted (6) Uvular hypertrophy: Plan: Uses CPAP, follows with ENT (7) BPH loc w urin obs/LUTS: Plan: Grant catheter was in place-has now passed trial of void on 03/22 Plan: DVT prophylaxis: Covid dosed Lovenox Diet: Regular Disposition: COVID unit, PCU CODE STATUS: Full code, discussed with patient Admission and Anticipated Discharge Date Admission Date: March 20, 2021 Subjective Reports he is coughing up quite a bit of mucus today sometimes it is blood- tinged. This is been happening more since he started using a flutter valve. He is tolerating BiPAP at nighttime. He is weaned down to 12 L nasal cannula I saw him today. He is out of bed to the chair and says he is feeling fairly well. Appetite is still low but he is not lost his sense of taste and smell. He denies chest pains except when he coughs hard. No nausea or abdominal pain. He is moving his bowels but it is loose and watery. Telemetry sinus arrhythmia and PACs with rates in the 60s Review of Systems Review of Systems: All systems reviewed & are unremarkable except as noted in HPI & below Physical Exam Constitutional: WD/WN, vitals as above Eyes: PERRL, conjunctivae normal, anicteric sclerae ENMT: external ear and nose normal, oropharynx normal Neck: trachea midline, no thyromegaly Respiratory: normal respiratory effort, lungs clear to auscultation Cardiovascular: RRR, no murmur, no edema Chest (Breasts): Chest: normal inspection of chest Gastrointestinal (Abdomen): normal bowel sounds, soft, nontender, no hepatosplenomegaly Musculoskeletal: Extremities: extremities normal to inspection; no cyanosis and no clubbing Skin: no rashes, warm and dry Neurologic: moves all extremities and awake; no focal motor deficits Psychiatric: A+Ox3, euthymic affect Lymphatic: no lymphedema Results & Data Results & Data ([facility]) Vital Signs (Past 12 Hours) Vital Signs Temp Pulse Pulse Resp BP Pulse Ox 03/22/21 15:37 36.8 C 69 23 124/73 94 03/22/21 15:12 67 18 91 03/22/21 14:00 91 03/22/21 11:13 36.6 C 57 L 22 129/77 92 03/22/21 11:10 60 18 92 03/22/21 08:00 82 03/22/21 07:37 56 L 16 92 03/22/21 07:35 36.6 C 56 L 21 122/66 94 Laboratory Results 03/22/21 03/22/21 Range/Units 05:50 05:50 WBC 8.35 (4.8-10.8) K/uL RBC 4.46 L (4.7-6.1) M/uL Hgb 13.6 L (14.0-18.0) g/dL Hct 39.7 L (42-52) % MCV 89.0 (80-100) fL MCH 30.5 (25-34) pg MCHC 34.3 (32-36) g/dL RDW Std Deviation 45.9 (36.4-46.3) fL RDW Coeff of Sujit 14.0 (11.5-14.5) % Plt Count 250 (130-400) K/uL MPV 9.7 (7.4-10.4) fL Sodium 145 (136-145) mmol/L Potassium 3.9 (3.5-5.1) mmol/L Chloride 113 H (98-107) mmol/L Carbon Dioxide 23 (21-32) mmol/L Anion Gap 9.0 (3-11) BUN 42 H (7-18) mg/dl Creatinine 1.09 (0.6-1.4) mg/dl Est Cr Clr Drug Dosing 92.8 ml/min Est GFR ( Amer) 85.1 ml/min Est GFR (Non-Af Amer) 73.4 ml/min BUN/Creatinine Ratio 38.2 H (10-20) Glucose 165 H (70-99) mg/dl Calcium 8.5 (8.5-10.1) mg/dl Magnesium 2.5 H (1.8-2.4) mg/dl C-Reactive Protein 9.75 H (0-0.29) mg/dl PG Care Time/CCT Total # of Minutes Spent Total Time Spent with Patient: Total time spent is greater than 50% in coordination of care (as documented) at patient's floor/unit and/or counseling patient: Coding Level of Care Code 54151 Subseq Hosp Care Lvl 3 Diagnoses Acute respiratory failure with hypoxia J96.01 Pneumonia due to COVID-19 virus U07.1; J12.82 ROSARIO (acute kidney injury) N17.9 Hypokalemia E87.6 Sensorineural hearing loss (SNHL) of left ear with unrestricted hearing of right ear H90.42 Uvular hypertrophy K13.79 BPH loc w urin obs/LUTS N40.1
[2021-03-22] MEDS: guaiFENesin 600 MG TABCR PO SCH (21:24)
[2021-03-23] MEDS: HYDROcodone/HOMATROPINE SYRUP 5MG/1.5MG 5ML UDP PO PRN ×3 (02:22→15:02)
[2021-03-23 07:46] LABS: BUN Creatinine Ratio 42.5 (10-20); Calcium 8.6 mg/dl (8.5-10.1); Creatinine Clr Calc Pharmacy 83.5 ml/min; Est GFR (African American) 77.3 ml/min; Est GFR (Non-African American) 66.7 ml/min; Magnesium 2.6 mg/dl (1.8-2.4); Potassium 4.1 mmol/L (3.5-5.1)
[2021-03-23] MEDS ORDERED: FUROSEMIDE 20 MG in SYRINGE 0 ML IV ONE ×2 (08:00→08:28)
[2021-03-23] MEDS: ACETAMINOPHEN 325 MG TAB PO PRN ×2 (08:10→15:02)
[2021-03-23] MEDS: BENZONATATE 100 MG CAPSULE PO SCH ×3 (08:10→20:53)
[2021-03-23] MEDS: dexAMETHasone 6 MG in SYRINGE 0 ML IV SCH (08:11)
[2021-03-23] MEDS: FAMOTIDINE 20 MG in SYRINGE 3 ML IV SCH (08:11)
[2021-03-23] MEDS: ENOXAPARIN INJ 60 MG/0.6 ML SYR SQ SCH ×2 (08:11→20:53)
[2021-03-23] MEDS: MAGNESIUM OXIDE 400 MG TAB PO SCH (08:11)
[2021-03-23] MEDS: guaiFENesin 600 MG TABCR PO SCH ×2 (08:11→20:53)
[2021-03-23] MEDS: cefTRIAXone SODIUM 2,000 MG in DEXTROSE 5% 50 ML IV SCH (08:11)
[2021-03-23] MEDS: POTASSIUM CHLORIDE CRTAB 20 MEQ TABCR PO SCH ×2 (08:12→20:53)
--- NOTE | 2021-03-23 08:16 | XRay Report ---
XR chest 1V portable HISTORY: Shortness of breath. Pneumonia. COMPARISON: Chest 03/20/2021. FINDINGS: There is moderate pneumomediastinum with subcutaneous gas within the upper chest/neck base. No pneumothorax. The heart remains mildly enlarged. There are progressive hazy bilateral airspace op acities most notable within the lung bases. IMPRESSION: 1. Progressive bilateral airspace opacities consistent with a pneumonia. 2. Moderate pneumomediastinum which extends into the upper chest/neck base. 3. This finding was called/faxed to the referring physician following dictation. ACT 112: Negative or not required by law. Electronically signed by: Marco A Yee M.D. 03/23/2021 8:15 AM
[2021-03-23] MEDS ORDERED: FUROSEMIDE 40 MG/4 ML VIAL IV ONE (08:45)
[2021-03-23] MEDS: AZITHROMYCIN 500 MG in DEXTROSE 5% 250 ML IV SCH (09:01)
--- NOTE | 2021-03-23 13:59 | Pulmonology Progress Note ---
Date of Service March 23, 2021 Assessment & Plan (1) Acute respiratory failure with hypoxia: (2) Pneumonia due to COVID-19 virus: (3) Transaminitis: (4) Pneumomediastinum: Plan: 61-year-old male with a history of hypertension and obesity who presented to the hospital due to viral pneumonia. Chest x-ray 03/20/2021 personally reviewed: Portable film, moderate rate to the right, diffuse alveolar opacities appreciated bilaterally, increased cardiac silhouette --Acute hypoxic respiratory failure Secondary to multilobar COVID-19 pneumonia COVID-19 PCR positive 03/16/2021 CRP 18.2 --> 9.75 S/p Tocilizumab 03/21/2021 Continue with O2 supplementation to keep oxygen saturation between 90-92%. Awake proning will be helpful Continue with incentive spirometry Recommend patient to be kept euvolemic to negative balance --Pneumomediastinum No signs of subcu emphysema No signs of pneumothorax on the chest x-ray Avoid BiPAP as well as flutter valve for the time being --Transaminitis Trending down Continue to monitor Plan: Chest x-ray from today shows worsening infiltrate as well as pneumomediastinum 40 mg of Lasix given to the patient today Repeat chest x-ray in the morning Do not use BiPAP for the time being if patient is not in any distress. The elmer ent is in respiratory distress but okay to use BiPAP Avoid flutter valve for at least 24-48 hours Case was discussed with RN and Dr. Hall Please note the above document was generated using voice recognition software. It may contain grammatical, syntax or spelling errors.Any formal questions or concerns about the content, text or information contained within the body of this dictation should be directly addressed to the provider for clarification. Admission and Anticipated Discharge Date Admission Date: March 20, 2021 Subjective Patient seen and examined at bedside. No acute distress, no adverse events overnight. Patient did use BiPAP overnight. He did not like it He was saturating 92% on 13 L nasal cannula at the time of examination Says that overall he is feeling the same. Denies any chest pain. Fair appetite. Review of Systems Review of Systems: All systems reviewed & are unremarkable except as noted in Subjective Physical Exam Physical Exam: Constitutional: No acute distress HEENT: EOMI, PERRLA, no subcu emphysema Respiratory system: Decreased air entry bilaterally, no wheeze, rhonchi, positive crackles bilateral lower lobes CVS: S1-S2 positive, no murmurs or gallops Abdomen: Soft, nontender, nondistended, positive bowel sounds x4, obese Extremities: +2 pulses bilaterally radialis/ dorsalis pedis, no cyanosis, +1 edema bilateral lower extremity Neuro: Awake alert oriented x3 Psych: Normal mood and affect G/U: No Rogers Skin: no rashes, warm and dry Lymphatic: no cervical or axillary lymphadenopathy Results & Data Results & Data ([facility]) Vital Signs (Past 12 Hours) Vital Signs Temp Pulse Pulse Resp BP BP Pulse Ox 03/23/21 11:13 36.6 C 66 24 122/71 88 L 03/23/21 09:23 90 03/23/21 08:00 47 L 03/23/21 07:30 36.8 C 49 L 21 125/59 L 98 03/23/21 04:18 36.6 C 50 L 18 115/61 94 03/23/21 03:13 47 L 26 H 92 03/22/21 05:50 03/23/21 06:56 PG Care Time/CCT Total # of Minutes Spent Total Time Spent with Patient: Total time spent is greater than 50% in coordination of care (as documented) at patient's floor/unit and/or counseling patient: Coding Level of Care Code 48580 Subseq Hosp Care Lvl 3 Diagnoses Acute respiratory failure with hypoxia J96.01 Pneumonia due to COVID-19 virus U07.1; J12.82 Transaminitis R74.01 Pneumomediastinum J98.2
--- NOTE | 2021-03-23 17:36 | Hospitalist Progress Note ---
Date of Service March 23, 2021 Assessment & Plan (1) Acute respiratory failure with hypoxia: Plan: due to COVID 19 pneumonia, bilateral infiltrates on CXR Was requiring prone positioning and BiPAP while awake, but then weaned down to wall high flow nasal cannula at 11-15 L Was using BiPAP at nighttime, but now HOLD due to pneumomediastinum No respiratory distress Received 1 dose of Lasix 40mg IV on 03/21 keep lungs dry, give another dose lasix 40mg IV on 03/23 consulted pulmonology for consideration of Tocilizumab since his CRP is 18, on BIPAP since admission-he was given 1 dose on 03/21 Despite pneumomediastinum, improving Continue dexamethasone Continue antitussives Continue incentive spirometry, but HOLD flutter valve with pneumomediastinum Can get OOB to chair but no excessive Mayela josue type activities (2) Pneumonia due to COVID-19 virus: Plan: Symptom onset: approximately March 09, says he just got dyspnea and cough a few days prior to admission-became really short of breath on 03/20 so he came to the ED bilateral infiltrates on CXR, CRP is 18 and now decreased to 9 after receiving Tocilizumab and dexamethasone Continue dexamethasone 6mg IV daily, day 4 Continue Rocephin/Zithromax as his cough is productive, give 5 days of treatment-today day 4 too far along in course of illness to give Remdesivir, no benefit consult pulmonology for Tocilizumab therapy which she received as CRP 18 and on BIPAP < 72 hours into admission continue prone position awake and with sleeping Continue supplemental O2 and wean off as able to Lasix as needed keep lungs dry - ECG to follow QT while on azithromycin-QTc 453 on 03/23 CTA chest: no pulmonary embolism, just shows diffuse infiltrates initially CXR 03/23 with progressive infiltrates and moderate pneumomediastinum without PTX Follow CXR in AM Appreciate PULM input (3) Pneumomediastinum: Plan: as above should resolve on own continue supplemental O2 avoid BiPAP/CPAP, flutter valve and mayela josue maneuvers, excessive exercise follow CXR no pain but use morphine if has pain continue antitussives (4) ROSARIO (acute kidney injury): Plan: - Baseline creatinine less than 1, acutely elevated to 1.61 on admission and now back to normal Received 2 L NSS while in ER. - no further fluid, actually gave Lasix 40mg IV x3 doses Continue KCl 20 BID to try to keep K closer to 4.0 (5) Bradycardia: Plan: with sinus terry during daytime in 40s, drops to 30s at night at times with sinus pauses up to 3.6 sec while not wearing BiPAP and has known AKIL follow on tele not on meds that would cause AV node blockade not symptomatic, no high grade blocks (6) Transaminitis: Plan: improving follow LFTs / COVID (7) Hypokalemia: Plan: Now resolved with potassium replacement Follow BMP continue KCl replacement (8) Uvular hypertrophy: Plan: Uses CPAP, follows with ENT (9) BPH loc w urin obs/LUTS: Plan: Rogers catheter was in place-has now passed trial of void on 03/22 Plan: DVT prophylaxis: Covid dosed Lovenox Diet: Regular Disposition: COVID unit, PCU CODE STATUS: Full code, discussed with patient Admission and Anticipated Discharge Date Admission Date: March 20, 2021 Subjective Patient had trouble tolerating the BiPAP overnight and is unable to wear it. He did have frequent sinus pauses with the longest being 3.6 seconds on telemetry. He denies any chest pain. He denies shortness of breath. He was on 15 L high flow nasal cannula through the night. Chest x-ray this morning did show pneumomediastinum without pneumothorax and worsening infiltrates right greater than left. I discussed his case with pulmonology. The patient is in no respiratory distress. He denies any diarrhea. His appetite is still low but improving. He is out of bed to chair. Telemetry with sinus bradycardia with rates in the 40s to 50s and down in the 30s with pauses as above overnight Review of Systems Review of Systems: All systems reviewed & are unremarkable except as noted in HPI & below Physical Exam Constitutional: WD/WN, vitals as above Neck: trachea midline, no thyromegaly Some subcutaneous crepitus palpable just above the clavicle bilaterally Respiratory: normal respiratory effort Auscultation: + crackles (Bilateral lower and middle lung hayden); no rhonchi and no wheezes Cardiovascular: Rate/Rhythm: regular rate and + bradycardic Heart Sounds: no murmur Extremities: no calf tenderness and no edema Chest (Breasts): Chest: normal inspection of chest Gastrointestinal (Abdomen): normal bowel sounds, soft, nontender, no hepatosplenomegaly Musculoskeletal: Extremities: extremities normal to inspection; no cyanosis and no clubbing Skin: no rashes, warm and dry Neurologic: moves all extremities and awake; no focal motor deficits Psychiatric: A+Ox3, euthymic affect Lymphatic: no lymphedema Results & Data Results & Data ([facility]) Vital Signs (Past 12 Hours) Vital Signs Temp Pulse Pulse Resp BP BP Pulse Ox 03/23/21 15:25 36.5 C 64 25 H 125/71 90 03/23/21 11:13 36.6 C 66 24 122/71 88 L 03/23/21 09:23 90 03/23/21 08:00 47 L 03/23/21 07:30 36.8 C 49 L 21 125/59 L 98 Laboratory Results 03/23/21 Range/Units 06:56 Sodium 144 (136-145) mmol/L Potassium 4.1 (3.5-5.1) mmol/L Chloride 112 H (98-107) mmol/L Carbon Dioxide 24 (21-32) mmol/L Anion Gap 8.0 (3-11) BUN 50 H (7-18) mg/dl Creatinine 1.18 (0.6-1.4) mg/dl Est Cr Clr Drug Dosing 83.5 ml/min Est GFR ( Amer) 77.3 ml/min Est GFR (Non-Af Amer) 66.7 ml/min BUN/Creatinine Ratio 42.5 H (10-20) Glucose 166 H (70-99) mg/dl Calcium 8.6 (8.5-10.1) mg/dl Magnesium 2.6 H (1.8-2.4) mg/dl Diagnostic Findings Chest x-ray image personally reviewed by me and agree with the following report: Chest X-Ray 03/23/21 07:00 XR chest 1V portable HISTORY: Shortness of breath. Pneumonia. COMPARISON: Chest 03/20/2021. FINDINGS: There is moderate pneumomediastinum with subcutaneous gas within the upper chest/neck base. No pneumothorax. The heart remains mildly enlarged. There are progressive hazy bilateral airspace opacities most notable within the lung bases. IMPRESSION: 1. Progressive bilateral airspace opacities consistent with a pneumonia. 2. Moderate pneumomediastinum which extends into the upper chest/neck base. 3. This finding was called/faxed to the referring physician following dictation. ACT 112: Negative or not required by law. Electronically signed by: Marco A Yee M.D. 03/23/2021 8:15 AM PG Care Time/CCT Total # of Minutes Spent Total Time Spent with Patient: Total time spent is greater than 50% in coordination of care (as documented) at patient's floor/unit and/or counseling patient: Coding Level of Care Code 72226 Subseq Hosp Care Lvl 3 Diagnoses Acute respiratory failure with hypoxia J96.01 Pneumonia due to COVID-19 virus U07.1; J12.82 ROSARIO (acute kidney injury) N17.9 Hypokalemia E87.6 Uvular hypertrophy K13.79 BPH loc w urin obs/LUTS N40.1 Bradycardia R00.1 Pneumomediastinum J98.2 Transaminitis R74.01
[2021-03-23] MEDS: FAMOTIDINE 20 MG TAB PO SCH (20:53)
[2021-03-24] MEDS ORDERED: FUROSEMIDE 40 MG in SYRINGE 0 ML IV ONE (00:36)
[2021-03-24] MEDS ORDERED: FUROSEMIDE 40 MG/4 ML VIAL IV ONE (00:45)
[2021-03-24] MEDS: HYDROcodone/HOMATROPINE SYRUP 5MG/1.5MG 5ML UDP PO PRN ×2 (06:06→12:53)
[2021-03-24 08:00] LABS: Basophils # (auto) 0.01 K/uL (0-0.2); Basophils % (auto) 0.2 %; Hematocrit (blood only) 41.2 % (42-52); Hemoglobin 14.5 g/dL (14.0-18.0); Immature Granulocytes # (auto) 0.04 K/uL (0.00-0.02); Immature Granulocytes % (auto) 0.7 %; Lymphocytes # (auto) 0.46 K/uL (1.2-3.4); Lymphocytes % (auto) 8.1 %; Mean Corpuscular Hgb Conc 35.2 g/dL (32-36); Mean Platelet Volume 9.4 fL (7.4-10.4); Monocytes # (auto) 0.58 K/uL (0.11-0.59); Monocytes % (auto) 10.2 %; Neutrophils # (auto) 4.58 K/uL (1.4-6.5); Neutrophils % (auto) 80.8 %; Platelet Count 304 K/uL (130-400); RDW Coefficient of Variation 13.2 % (11.5-14.5); RDW Standard Deviation 42.1 fL (36.4-46.3); Red Blood Count 4.68 M/uL (4.7-6.1); White Blood Count 5.67 K/uL (4.8-10.8)
[2021-03-24] MEDS: dexAMETHasone 6 MG in SYRINGE 0 ML IV SCH (08:24)
[2021-03-24] MEDS: cefTRIAXone SODIUM 2,000 MG in DEXTROSE 5% 50 ML IV SCH (08:24)
[2021-03-24] MEDS: BENZONATATE 100 MG CAPSULE PO SCH ×3 (08:24→21:42)
[2021-03-24] MEDS: AZITHROMYCIN 250 MG TAB PO SCH (08:25)
[2021-03-24] MEDS: FAMOTIDINE 20 MG TAB PO SCH ×2 (08:25→21:42)
[2021-03-24] MEDS: ENOXAPARIN INJ 60 MG/0.6 ML SYR SQ SCH ×2 (08:25→21:42)
[2021-03-24] MEDS: guaiFENesin 600 MG TABCR PO SCH ×2 (08:26→21:42)
[2021-03-24] MEDS: POTASSIUM CHLORIDE CRTAB 20 MEQ TABCR PO SCH ×2 (08:26→21:42)
[2021-03-24] MEDS: MAGNESIUM OXIDE 400 MG TAB PO SCH (08:26)
[2021-03-24 08:38] LABS: Albumin Level 2.9 gm/dl (3.4-5.0); Bilirubin Direct 0.3 mg/dl (0-0.2); C Reactive Protein 1.63 mg/dl (0-0.29); Calcium 8.6 mg/dl (8.5-10.1); Creatinine Clr Calc Pharmacy 90.8 ml/min; Est GFR (Non-African American) 74.2 ml/min; Magnesium 2.5 mg/dl (1.8-2.4); Potassium 3.9 mmol/L (3.5-5.1)
[2021-03-24 08:41] LABS: Bilirubin,Total 0.8 mg/dl (0.2-1); Total Protein 6.4 gm/dl (6.4-8.2)
--- NOTE | 2021-03-24 09:03 | Electrocardiogram Report ---
Test Reason : Blood Pressure : / mmHG Vent. Rate : 051 BPM Atrial Rate : 051 BPM P-R Int : 148 ms QRS Dur : 096 ms QT Int : 492 ms P-R-T Axes : 015 -01 007 degrees QTc Int : 453 ms Sinus bradycardia Otherwise normal ECG When compared with ECG of 20-MAR-2021 12:18, Vent. rate has decreased BY 36 BPM Nonspecific T wave abnormality no longer evident in Lateral leads Confirmed by Lei Wolf ([id number] on 03/24/2021 9:03:13 AM Referred By: REFERRED SELF Confirmed By:Lei Wolf
--- NOTE | 2021-03-24 09:11 | XRay Report ---
SINGLE VIEW CHEST CLINICAL HISTORY: Covid pneumonia. FINDINGS: An AP, portable, upright chest radiograph is compared to study dated 03/23/2021. The heart i s enlarged. Multifocal airspace consolidation is again seen throughout both lungs. This has not signi ficantly changed as compared to yesterday. Pneumomediastinum persists. No large pleural effusion or p neumothorax is identified. The bony thorax is grossly intact. Foci of subcutaneous emphysema are seen in the lower neck. IMPRESSION: 1. Multifocal airspace consolidation has not significantly changed from yesterday. 2. Again seen is pneumomediastinum with subcutaneous gas in the lower neck. 3. Cardiomegaly. ACT 112: Negative or not required by law. Electronically signed by: Talat Lea M.D. 03/24/2021 9:10 AM
--- NOTE | 2021-03-24 11:43 | Hospitalist Progress Note ---
Date of Service March 24, 2021 Assessment & Plan (1) Acute respiratory failure with hypoxia: Plan: due to COVID 19 pneumonia, bilateral infiltrates on CXR Was requiring prone positioning and BiPAP while awake, but then weaned down to wall high flow nasal cannula at 11-15 L on 03/23 However, on 03/24 worsened again and is on Vapotherm high flow nasal cannula at 40 L and 60 to 70% FiO2 Was using BiPAP at nighttime, but now on HOLD due to pneumomediastinum No respiratory distress but is getting very lethargic and fatigued-he is still mentating Received 1 dose of Lasix 40mg IV on 03/21 and another dose lasix 40mg IV on 03/23 No IV Lasix today due to hypernatremia and he is in a net negative balance Status post tocilizumab on 03/21 CRP trending downward Appreciate pulmonology consultation Chest x-ray on 03/24 stable from previous, continues with pneumomediastinum but no pneumothorax If becomes lethargic or not mentating properly, could place BiPAP as per pulmonology but trying to avoid positive pressure due to pneumomediastinum Continue dexamethasone Continue antitussives Continue incentive spirometry, but HOLD flutter valve with pneumomediastinum Can get OOB to chair but no excessive Mayela josue type activities -Continue proning as much as possible IV Lasix as needed to keep in a negative fluid balance (2) Pneumonia due to COVID-19 virus: Plan: Symptom onset: approximately March 09, says he just got dyspnea and cough a few days prior to admission-became really short of breath on 03/20 so he came to the ED bilateral infiltrates on CXR, CRP is 18 and now decreased after receiving Tocilizumab and dexamethasone Continue dexamethasone 6mg IV daily, day 5 Continue Rocephin/Zithromax as his cough is productive, give 5 days of treatment-today day 5 too far along in course of illness to give Remdesivir, no benefit Received Tocilizumab on 03/21 continue prone position awake and with sleeping Continue supplemental O2 and wean off as able to Lasix as needed to keep lungs dry - ECG to follow QT while on azithromycin-QTc 453 on 03/23 CTA chest: no pulmonary embolism, just shows diffuse infiltrates initially CXR 03/23 and 03/24 with progressive infiltrates and moderate pneumomediastinum without PTX Follow CXR Appreciate PULM input (3) Pneumomediastinum: Plan: as above should resolve on own continue supplemental O2 avoid BiPAP/CPAP, flutter valve and mayela josue maneuvers, excessive exercise follow CXR no pain but use morphine if has pain continue antitussives (4) ROSARIO (acute kidney injury): Plan: - Baseline creatinine less than 1, acutely elevated to 1.61 on admission and now back to normal Received 2 L NSS while in ER. - no further fluid, actually gave Lasix 40mg IV x3 doses Continue KCl 20 BID to try to keep K closer to 4.0 (5) Bradycardia: Plan: with sinus terry during daytime in 40s, drops to 30s at night at times with sinus pauses up to 3.6 sec while not wearing BiPAP and has known AKIL follow on tele not on meds that would cause AV node blockade not symptomatic, no high grade blocks (6) Transaminitis: Plan: AST and ALT are slightly increased today, no abdominal pain Continue to follow LFTs / COVID (7) Hypokalemia: Plan: Now resolved with potassium replacement Follow BMP continue KCl replacement (8) Uvular hypertrophy: Plan: Uses CPAP, follows with ENT (9) BPH loc w urin obs/LUTS: Plan: Rogers catheter was in place-has now passed trial of void on 03/22 and continues to urinate without difficulty Plan: DVT prophylaxis: Covid dosed Lovenox Disposition: Continued stay on COVID unit, PCU CODE STATUS: Full code Patient did not want me to call his as he says he is updating her regularly Admission and Anticipated Discharge Date Admission Date: March 20, 2021 Subjective Patient reports feeling much worse today. He is very tired and is laying in bed on his left side. He denies any chest pain or back pain, no neck pain, no abdominal pain or nausea. He was placed on Vapotherm high flow nasal cannula and was at 40 L and 60% FiO2 when I saw him with a pulse ox in the low 90s. I discussed his case with the clerical adjudicator. Telemetry with sinus bradycardia and PACs with rates in the high 30s to 40s with a burst of PAT and a 3-second pause Review of Systems Review of Systems: All systems reviewed & are unremarkable except as noted in HPI & below Physical Exam Constitutional: WD/WN, vitals as above + ill appearing ENMT: external ear and nose normal, oropharynx normal Neck: trachea midline, no thyromegaly Respiratory: normal respiratory effort Auscultation: + crackles (Bilateral lower and middle lung hayden); no rhonchi and no wheezes Cardiovascular: Rate/Rhythm: regular rate and + bradycardic Heart Sounds: no murmur Extremities: no calf tenderness and no edema Chest (Breasts): Chest: normal inspection of chest Gastrointestinal (Abdomen): normal bowel sounds, soft, nontender, no hepatosplenomegaly Musculoskeletal: Extremities: extremities normal to inspection; no cyanosis and no clubbing Skin: no rashes, warm and dry Neurologic: moves all extremities and awake; no focal motor deficits Psychiatric: A+Ox3, euthymic affect Lymphatic: no lymphedema Results & Data Results & Data ([facility]) Vital Signs (Past 12 Hours) Vital Signs Temp Pulse Pulse Resp BP Pulse Ox 03/24/21 11:27 36.7 C 56 L 22 140/77 95 03/24/21 07:47 59 L 24 94 03/24/21 07:21 36.8 C 54 L 25 H 136/69 95 03/24/21 03:40 36.6 C 53 L 20 114/89 96 03/24/21 00:00 72 Laboratory Results 03/24/21 03/24/21 Range/Units 07:45 07:45 WBC 5.67 (4.8-10.8) K/uL RBC 4.68 L (4.7-6.1) M/uL Hgb 14.5 (14.0-18.0) g/dL Hct 41.2 L (42-52) % MCV 88.0 (80-100) fL MCH 31.0 (25-34) pg MCHC 35.2 (32-36) g/dL RDW Std Deviation 42.1 (36.4-46.3) fL RDW Coeff of Sujit 13.2 (11.5-14.5) % Plt Count 304 (130-400) K/uL MPV 9.4 (7.4-10.4) fL Immature Gran % (Auto) 0.7 % Neut % (Auto) 80.8 % Lymph % (Auto) 8.1 % [place] % (Auto) 10.2 % Eos % (Auto) 0.0 % Baso % (Auto) 0.2 % Neut # (Auto) 4.58 (1.4-6.5) K/uL Lymph # (Auto) 0.46 L (1.2-3.4) K/uL [place] # (Auto) 0.58 (0.11-0.59) K/uL Eos # (Auto) 0.00 (0-0.5) K/uL Baso # (Auto) 0.01 (0-0.2) K/uL Immature Gran # (Auto) 0.04 H (0.00-0.02) K/uL Sodium 146 H (136-145) mmol/L Potassium 3.9 (3.5-5.1) mmol/L Chloride 113 H (98-107) mmol/L Carbon Dioxide 25 (21-32) mmol/L Anion Gap 9.0 (3-11) BUN 42 H (7-18) mg/dl Creatinine 1.08 (0.6-1.4) mg/dl Est Cr Clr Drug Dosing 90.8 ml/min Est GFR ( Amer) 86.0 ml/min Est GFR (Non-Af Amer) 74.2 ml/min BUN/Creatinine Ratio 39.0 H (10-20) Glucose 164 H (70-99) mg/dl Calcium 8.6 (8.5-10.1) mg/dl Magnesium 2.5 H (1.8-2.4) mg/dl Total Bilirubin 0.8 (0.2-1) mg/dl Direct Bilirubin 0.3 H (0-0.2) mg/dl AST 135 H (15-37) U/L ALT 196 H (12-78) U/L Alkaline Phosphatase 121 H (45-117) U/L C-Reactive Protein 1.63 H (0-0.29) mg/dl Total Protein 6.4 (6.4-8.2) gm/dl Albumin 2.9 L (3.4-5.0) gm/dl PG Care Time/CCT Total # of Minutes Spent Total Time Spent with Patient: Total time spent is greater than 50% in coordinat ion of care (as documented) at patient's floor/unit and/or counseling patient: Coding Level of Care Code 23377 Subseq Hosp Care Lvl 3 Diagnoses Acute respiratory failure with hypoxia J96.01 Pneumonia due to COVID-19 virus U07.1; J12.82 Pneumomediastinum J98.2 ROSARIO (acute kidney injury) N17.9 Bradycardia R00.1 Transaminitis R74.01 Hypokalemia E87.6 Uvular hypertrophy K13.79 BPH loc w urin obs/LUTS N40.1
--- NOTE | 2021-03-24 17:19 | Pulmonology Progress Note ---
Date of Service March 24, 2021 Assessment & Plan (1) Acute respiratory failure with hypoxia: (2) Pneumonia due to COVID-19 virus: (3) Transaminitis: (4) Pneumomediastinum: Plan: 61-year-old male with a history of hypertension and obesity who presented to the hospital due to viral pneumonia. Chest x-ray 03/20/2021 personally reviewed: Portable film, moderate rate to the right, diffuse alveolar opacities appreciated bilaterally, increased cardiac silhouette --Acute hypoxic respiratory failure Secondary to multilobar COVID-19 pneumonia COVID-19 PCR positive 03/16/2021 CRP 18.2 --> 9.75 --> 1.63 S/p Tocilizumab 03/21/2021 Continue with O2 supplementation to keep oxygen saturation between 90-92%. Awake proning will be helpful Continue with incentive spirometry Recommend patient to be kept negative balance --Pneumomediastinum No signs of pneumothorax on the chest x-ray Avoid BiPAP as well as flutter valve for the time being --Transaminitis Trending down Continue to monitor Plan: In/out: -966, urine output 1626 Continue with diuretics to keep the patient negative balance Chest x-ray from today still shows diffuse alveolar opacities, pneumomediastinum persists, minimal subcu emphysema appreciated on the right side. On physical exam I was not able to appreciate any subcu emphysema on the right side of the neck Do not use BiPAP for the time being if patient is not in any distress. The patient is in respiratory distress but okay to use BiPAP Avoid flutter valve use. Case was discussed with RN Please note the above document was generated using voice recognition software. It may contain grammatical, syntax or spelling errors.Any formal questions or concerns about the content, text or information contained within the body of this dictation should be directly addressed to the provider for clarification. Admission and Anticipated Discharge Date Admission Date: March 20, 2021 Subjective Patient seen and examined at bedside. No acute distress. Patient was on 85% 40 L at the time of examination saturating 94-95% I went down to 65% patient was still maintaining saturation 89-90% He was lethargic. He was lying on the left side. He said he breathing is the same. Denies any chest pain. Fair appetite. No nausea or vomiting. Review of Systems Review of Systems: All systems reviewed & are unremarkable except as noted in Subjective Physical Exam Physical Exam: Constitutional: No acute distress HEENT: EOMI, PERRLA, no subcu emphysema Respiratory system: Decreased air entry bilaterally, no wheeze, rhonchi, positive crackles bilateral lower lobes CVS: S1-S2 positive, no murmurs or gallops Abdomen: Soft, nontender, nondistended, positive bowel sounds x4, obese Extremities: +2 pulses bilaterally radialis/ dorsalis pedis, no cyanosis, +1 edema bilateral lower extremity Neuro: Awake alert oriented x3 Psych: Normal mood and affect G/U: No Rogers Skin: no rashes, warm and dry Lymphatic: no cervical or axillary lymphadenopathy Results & Data Results & Data ([facility]) Vital Signs (Past 12 Hours) Vital Signs Temp Pulse Pulse Resp BP BP Pulse Ox 03/24/21 16:06 56 L 24 92 03/24/21 16:00 03/24/21 15:19 71 03/24/21 14:47 36.6 C 55 L 23 132/33 L 90 03/24/21 12:11 51 L 23 124/73 95 03/24/21 11:54 64 26 H 89 L 03/24/21 11:27 36.7 C 56 L 22 140/77 95 03/24/21 07:47 59 L 24 94 03/24/21 07: 36.8 C 54 L 25 H 136/69 95 Pulse Ox 03/24/21 16:06 03/24/21 16:00 92 03/24/21 15:19 03/24/21 14:47 03/24/21 12:11 03/24/21 11:54 03/24/21 11:27 03/24/21 07:47 03/24/21 07:21 03/24/21 07:45 03/24/21 07:45 PG Care Time/CCT Total # of Minutes Spent Total Time Spent with Patient: Total time spent is greater than 50% in coordination of care (as documented) at patient's floor/unit and/or counseling patient: [place] [address] Subseq Hosp Care Lvl 3 Patient Type Established Diagnoses Acute respiratory failure with hypoxia J96.01 Pneumonia due to COVID-19 virus U07.1; J12.82 Transaminitis R74.01 Pneumomediastinum J98.2
[2021-03-25 07:03] LABS: Albumin Level 2.8 gm/dl (3.4-5.0); BUN Creatinine Ratio 35.2 (10-20); Calcium 8.4 mg/dl (8.5-10.1); Creatinine Clr Calc Pharmacy 105.7 ml/min; Est GFR (African American) 103.1 ml/min; Est GFR (Non-African American) 88.9 ml/min; Potassium 4.1 mmol/L (3.5-5.1)
[2021-03-25 07:05] LABS: Albumin Globulin Ratio 0.9 (0.9-2); Bilirubin,Total 0.7 mg/dl (0.2-1); Globulin 3.2 gm/dl (2.5-4.0)
[2021-03-25] MEDS: FAMOTIDINE 20 MG TAB PO SCH ×2 (07:24→22:10)
[2021-03-25] MEDS: guaiFENesin 600 MG TABCR PO SCH ×2 (07:24→22:10)
[2021-03-25] MEDS: ENOXAPARIN INJ 60 MG/0.6 ML SYR SQ SCH ×2 (07:24→22:09)
[2021-03-25] MEDS: POTASSIUM CHLORIDE CRTAB 20 MEQ TABCR PO SCH ×2 (07:24→22:10)
[2021-03-25] MEDS: BENZONATATE 100 MG CAPSULE PO SCH ×3 (07:25→22:10)
[2021-03-25] MEDS: MAGNESIUM OXIDE 400 MG TAB PO SCH (07:25)
[2021-03-25] MEDS: AZITHROMYCIN 250 MG TAB PO SCH (07:25)
[2021-03-25] MEDS: dexAMETHasone 6 MG in SYRINGE 0 ML IV SCH (07:32)
[2021-03-25] MEDS: cefTRIAXone SODIUM 2,000 MG in DEXTROSE 5% 50 ML IV SCH (07:32)
[2021-03-25] MEDS ORDERED: FUROSEMIDE 40 MG/4 ML VIAL IV ONE ×2 (07:37→07:45)
[2021-03-25] MEDS ORDERED: FUROSEMIDE 40 MG in SYRINGE 0 ML IV ONE (08:00)
--- NOTE | 2021-03-25 09:13 | XRay Report ---
XR chest 1V portable CLINICAL HISTORY: f/u COMPARISON STUDY: Chest radiograph March 24, 2021. FINDINGS: Lung volumes are normal. There is no pneumothorax or pleural effusion. Cardiomegaly is unch anged. Extensive bilateral airspace opacities persist. Pneumomediastinum and subcutaneous gas within the lower neck is again noted. This has decreased since radiograph of March 23, 2021. IMPRESSION: 1. No significant change in extensive bilateral airspace opacities suggestive of viral pneumonia. 2. Redemonstration of a small amount of pneumomediastinum and subcutaneous gas within the lower neck. ACT 112: Negative or not required by law. Electronically signed by: Floyd Neal M.D. 03/25/2021 9:11 AM
--- NOTE | 2021-03-25 10:01 | Pulmonology Progress Note ---
Date of Service March 25, 2021 Assessment & Plan (1) Acute respiratory failure with hypoxia: (2) Pneumonia due to COVID-19 virus: (3) Transaminitis: (4) Pneumomediastinum: Plan: 61-year-old male with a history of hypertension and obesity who presented to the hospital due to viral pneumonia. Chest x-ray 03/20/2021 personally reviewed: Portable film, moderate rate to the right, diffuse alveolar opacities appreciated bilaterally, increased cardiac silhouette --Acute hypoxic respiratory failure Secondary to multilobar COVID-19 pneumonia COVID-19 PCR positive 03/16/2021 CRP 18.2 --> 9.75 --> 1.63 S/p Tocilizumab 03/21/2021 Continue with O2 supplementation to keep oxygen saturation between 90-92%. Awake proning will be helpful Continue with incentive spirometry Recommend patient to be kept negative balance --Pneumomediastinum No signs of pneumothorax on the chest x-ray Avoid BiPAP as well as flutter valve for the time being --Transaminitis Trending down Continue to monitor Plan: In/out: - 550, urine output 1950 Chest x-ray no significant change compared to yesterday. Patient seems to be little bit depressed today. Did give him motivation and encouraged him that we are heading in the right direction. Continue with incentive spirometry Do not use BiPAP for the time being if patient is not in any distress. The patient is in respiratory distress but okay to use BiPAP Avoid flutter valve use. Case was discussed with RN Please note the above document was generated using voice recognition software. It may contain grammatical, syntax or spelling errors.Any formal questions or concerns about the content, text or information contained within the body of this dictation should be directly addressed to the provider for clarification. Admission and Anticipated Discharge Date Admission Date: March 20, 2021 Subjective Patient seen and examined at bedside. No acute distress, no adverse events overnight. Patient was on 80%, 40 L high flow saturating 93-94%. I did go down FiO2 to 75% He was lying in left lateral decubitus position. Denies any chest pain, says that he is doing okay. Decreased appetite. Has not been eating. Encouraged to have meals. Review of Systems Review of Systems: All systems reviewed & are unremarkable except as noted in Subjective Physical Exam Physical Exam: Constitutional: No acute distress HEENT: EOMI, PERRLA, no subcu emphysema on palpation of the neck Respiratory system: Decreased air entry bilaterally, no wheeze, rhonchi, positive crackles bilateral lower lobes CVS: S1-S2 positive, no murmurs or gallops, bradycardia Abdomen: Soft, nontender, nondistended, positive bowel sounds x4, obese Extremities: +2 pulses bilaterally radialis/ dorsalis pedis, no cyanosis, +1 edema bilateral lower extremity Neuro: Awake alert oriented x3 Psych: Normal mood and affect G/U: No Rogers Skin: no rashes, warm and dry Lymphatic: no cervical or axillary lymphadenopathy Results & Data Results & Data ([facility]) Vital Signs (Past 12 Hours) Vital Signs Temp Pulse Pulse Resp BP BP Pulse Ox 03/25/21 08:00 37.0 C 57 L 22 146/75 H 92 03/25/21 07:54 55 L 26 H 84 L 03/25/21 07:16 36.7 C 57 L 27 H 146/75 H 89 L 03/25/21 03:53 36.9 C 48 L 22 137/78 95 03/25/21 03:06 44 L 22 93 03/24/21 23:50 48 L 22 95 03/24/21 22:55 36.9 C 61 22 165/90 H 95 03/24/21 07:45 03/25/21 05:48 PG Care Time/CCT Total # of Minutes Spent Total Time Spent with Patient: Total time spent is greater than 50% in coordination of care (as documented) at patient's floor/unit and/or counseling p atient: Coding Level of Care Code 81289 Subseq Hosp Care Lvl 3 Diagnoses Acute respiratory failure with hypoxia J96.01 Pneumonia due to COVID-19 virus U07.1; J12.82 Transaminitis R74.01 Pneumomediastinum J98.2
--- NOTE | 2021-03-25 21:11 | Hospitalist Progress Note ---
Date of Service March 25, 2021 Assessment & Plan (1) Acute respiratory failure with hypoxia: Plan: due to COVID 19 pneumonia, bilateral infiltrates on CXR Was requiring prone positioning and BiPAP while awake, but then weaned down to wall high flow nasal cannula at 11-15 L on 03/23 However, on 03/24 worsened again was placed back on Vapotherm high flow nasal cannula On 03/25, requiring higher amounts of oxygen at 40 L and up to 80 % FiO2 to maintain pulse ox 90-91% He is pronating at times but mostly lying on his side He is starting to get more and more fatigued and depressed on 03/25. No respiratory distress. Encouragement given Was using BiPAP at nighttime, but now on HOLD due to pneumomediastinum Received 1 dose of Lasix 40mg IV on 03/21 and another dose lasix 40mg IV on 03/23- we will give another dose on 03/25 -Aim for net negative balance Status post tocilizumab on 03/21 CRP trending downward Appreciate pulmonology consultation Chest x-ray on 03/24 stable from previous, continues with pneumomediastinum but no pneumothorax Chest x-ray on 03/25 with improved pneumomediastinum, no pneumothorax, unchanged bilateral significant infiltrates If becomes lethargic or not mentating properly, could place BiPAP as per pulmonology but trying to avoid positive pressure due to pneumomediastinum Continue dexamethasone 6 mg daily x10-day course Continue antitussives Continue incentive spirometry, but HOLD flutter valve with pneumomediastinum Can get OOB to chair but no excessive Mayela josue type activities -Continue proning as much as possible IV Lasix as needed to keep in a negative fluid balance (2) Pneumonia due to COVID-19 virus: Plan: Symptom onset: approximately March 09, says he just got dyspnea and cough a few days prior to admission-became really short of breath on 03/20 so he came to the ED bilateral infiltrates on CXR, CRP is 18 and now decreased after receiving Tocilizumab and dexamethasone Continue dexamethasone 6mg IV daily, day 6 Continue Rocephin/Zithromax as his cough is productive, give 5 days of treatment-completed today too far along in course of illness to give Remdesivir, no benefit Received Tocilizumab on 03/21 - ECG to follow QT while on azithromycin-QTc 453 on 03/23 CTA chest: no pulmonary embolism, just shows diffuse infiltrates initially CXR 03/23 and 03/24 with progressive infiltrates and moderate pneumomediastinum without PTX, chest x-ray on 03/25 as above Follow CXR in the morning Appreciate PULM input (3) Pneumomediastinum: Plan: as above should resolve on own-appears improved on chest x-ray today, no palpable subcutaneous crepitus in the neck today continue supplemental O2 avoid BiPAP/CPAP, flutter valve and valsalva maneuvers, excessive exercise follow CXR no pain but use morphine if has pain continue antitussives (4) ROSARIO (acute kidney injury): Plan: - Baseline creatinine less than 1, acutely elevated to 1.61 on admission and now back to normal Received 2 L NSS while in ER. - no further fluid, actually gave Lasix 40mg IV daily as needed Continue KCl 20 BID to try to keep K closer to 4.0 (5) Bradycardia: Plan: with sinus terry during daytime in 40s, drops to 30s at night at times with sinus pauses up to 3.6 sec while not wearing BiPAP and has known AKIL on the night that he had the pneumomediastinum develop Now rates are somewhat improved in the 40s to 60s mostly follow on tele not on meds that would cause AV node blockade not symptomatic, no high grade blocks (6) Transaminitis: Plan: AST and ALT are slightly increased today, no abdominal pain Continue to follow LFTs 09/01 COVID (7) Hypokalemia: Plan: Now resolved with potassium replacement Follow BMP continue KCl replacement (8) Uvular hypertrophy: Plan: Uses CPAP, follows with ENT (9) BPH loc w urin obs/LUTS: Plan: Rogers catheter was in place-has now passed trial of void on 03/22 and continues to urinate without difficulty Plan: DVT prophylaxis: Covid dosed Lovenox Disposition: Continued stay on COVID unit, PCU, guarded prognosis CODE STATUS: Full code Patient did not want me to call his as he says he is updating her regularly, however nurse reports that she updated the extensively on the phone today Admission and Anticipated Discharge Date Admission Date: March 20, 2021 Subjective Patient has been very tired, but is mentating well. He is alert and awake and oriented x3 when I talked him in the evening. He denies shortness of breath. Still has cough at times. Denies any chest pain or neck pain, no back pain. He is lying mostly on his side but reports sometimes he lies prone. He is barely eating any food as per nursing, but he tells me that he is eating. Denies nausea or abdominal pain. He is making more urine after receiving Lasix this morning Again I asked him if he wanted me to call his and give her an update and he did not want me to do so. He reported that he just got off the phone with her. Telemetry with sinus bradycardia with rates in the 40s to 50s Review of Systems Review of Systems: All systems reviewed & are unremarkable except as noted in HPI & below Physical Exam Constitutional: WD/WN, vitals as above + ill appearing Eyes: + anicteric sclerae Neck: trachea midline, no thyromegaly Respiratory: normal respiratory effort Auscultation: + diminished lung sounds (At right lower and middle lung hayden) and + crackles (Bilateral lower and middle lung hayden); no rhonchi and no wheezes Cardiovascular: Rate/Rhythm: regular rate and + bradycardic Heart Sounds: no murmur Extremities: no calf tenderness and no edema Chest (Breasts): Chest: normal inspection of chest Gastrointestinal (Abdomen): normal bowel sounds, soft, nontender, no hepatosplenomegaly Musculoskeletal: Extremities: extremities normal to inspection; no cyanosis and no clubbing Skin: no rashes, warm and dry Neurologic: moves all extremities and awake; no focal motor deficits Psychiatric: A+Ox3, euthymic affect Lymphatic: no lymphedema Results & Data Results & Data ([facility]) Vital Signs (Past 12 Hours) Vital Signs Temp Pulse Resp BP Pulse Ox 03/25/21 19:28 74 22 90 03/25/21 19:24 36.8 C 74 24 136/79 92 03/25/21 15:29 37.1 C 66 26 H 129/73 89 L 03/25/21 14:48 49 L 26 H 93 03/25/21 11:13 36.5 C 67 26 H 133/76 94 03/25/21 11:10 45 L 22 94 03/25/21 10:00 85 L Laboratory Results 03/25/21 Range/Units 05:48 Sodium 145 (136-145) mmol/L Potassium 4.1 (3.5-5.1) mmol/L Chloride 113 H (98-107) mmol/L Carbon Dioxide 26 (21-32) mmol/L Anion Gap 6.0 (3-11) BUN 33 H (7-18) mg/dl Creatinine 0.93 (0.6-1.4) mg/dl Est Cr Clr Drug Dosing 105.7 ml/min Est GFR ( Amer) 103.1 ml/min Est GFR (Non-Af Amer) 88.9 ml/min BUN/Creatinine Ratio 35.2 H (10-20) Glucose 137 H (70-99) mg/dl Calcium 8.4 L (8.5-10.1) mg/dl Total Bilirubin 0.7 (0.2-1) mg/dl AST 102 H (15-37) U/L ALT 184 H (12-78) U/L Alkaline Phosphatase 108 (45-117) U/L Total Protein 6.0 L (6.4-8.2) gm/dl Albumin 2.8 L (3.4-5.0) gm/dl Globulin 3.2 (2.5-4.0) gm/dl Albumin/Globulin Ratio 0.9 (0.9-2) Diagnostic Findings Chest x-ray image personally reviewed by me and agree with the following report: Chest X-Ray 03/25/21 07:43 XR chest 1V portable CLINICAL HISTORY: f/u COMPARISON STUDY: Chest radiograph March 24, 2021. FINDINGS: Lung volumes are normal. There is no pneumothorax or pleural effusion. Cardiomegaly is unchanged. Extensive bilateral airspace opacities persist. Pneumomediastinum and subcutaneous gas within the lower neck is again noted. This has decreased since radiograph of March 23, 2021. IMPRESSION: 1. No significant change in extensive bilateral airspace opacities suggestive of viral pneumonia. 2. Redemonstration of a small amount of pneumomediastinum and subcutaneous gas within the lower neck. ACT 112: Negative or not required by law. Electronically signed by: Floyd Neal M.D. 03/25/2021 9:11 AM PG Care Time/CCT Total # of Minutes Spent Total Time Spent with Patient: Total time spent is greater than 50% in coordination of care (as documented) at patient's floor/unit and/or counseling patient: Coding Level of Care Code 92677 Subseq Hosp Care Lvl 3 Diagnoses Acute respiratory failure with hypoxia J96.01 Pneumonia due to COVID-19 virus U07.1; J12.82 Pneumomediastinum J98.2 ROSARIO (acute kidney injury) N17.9 Bradycardia R00.1 Transaminitis R74.01 Hypokalemia E87.6 Uvular hypertrophy K13.79 BPH loc w urin obs/LUTS N40.1
[2021-03-26 06:42] LABS: Eosinophils # (auto) 0.12 K/uL (0-0.5); Eosinophils % (auto) 1.6 %; Hematocrit (blood only) 42.6 % (42-52); Hemoglobin 14.6 g/dL (14.0-18.0); Immature Granulocytes % (auto) 1.4 %; Lymphocytes # (auto) 0.62 K/uL (1.2-3.4); Lymphocytes % (auto) 8.4 %; Mean Corpuscular Hemoglobin 30.5 pg (25-34); Mean Corpuscular Hgb Conc 34.3 g/dL (32-36); Mean Corpuscular Volume 88.9 fL (80-100); Mean Platelet Volume 9.7 fL (7.4-10.4); Monocytes # (auto) 0.49 K/uL (0.11-0.59); Monocytes % (auto) 6.6 %; Neutrophils # (auto) 6.07 K/uL (1.4-6.5); Platelet Count 356 K/uL (130-400); RDW Coefficient of Variation 12.9 % (11.5-14.5); RDW Standard Deviation 41.6 fL (36.4-46.3); Red Blood Count 4.79 M/uL (4.7-6.1)
[2021-03-26 07:16] LABS: Albumin Level 2.8 gm/dl (3.4-5.0); BUN Creatinine Ratio 29.7 (10-20); Calcium 8.7 mg/dl (8.5-10.1); Creatinine Clr Calc Pharmacy 97.3 ml/min; Est GFR (African American) 94.4 ml/min; Est GFR (Non-African American) 81.4 ml/min; Magnesium 2.6 mg/dl (1.8-2.4); Potassium 4.4 mmol/L (3.5-5.1)
[2021-03-26 07:19] LABS: Albumin Globulin Ratio 0.8 (0.9-2); Bilirubin,Total 0.7 mg/dl (0.2-1); Globulin 3.3 gm/dl (2.5-4.0); Total Protein 6.1 gm/dl (6.4-8.2)
--- NOTE | 2021-03-26 08:11 | XRay Report ---
XR chest 1V portable CLINICAL HISTORY: f/u COMPARISON STUDY: Chest radiograph March 25, 2021. FINDINGS: Pneumomediastinum and subcutaneous gas within the lower neck are again noted. Cardiomegaly is unchanged. Extensive bilateral airspace opacities persist. These are similar to prior exam. There is no pneumothorax. No pleural effusion is identified. IMPRESSION: 1. No significant change in extensive bilateral airspace opacities suggestive of pneumonia. 2. Redemonstration of pneumomediastinum and subcutaneous gas within the lower neck. ACT 112: Negative or not required by law. Electronically signed by: Floyd Neal M.D. 03/26/2021 8:10 AM
[2021-03-26] MEDS: dexAMETHasone 6 MG in SYRINGE 0 ML IV SCH (08:25)
[2021-03-26] MEDS: BENZONATATE 100 MG CAPSULE PO SCH ×3 (08:25→22:08)
[2021-03-26] MEDS: FAMOTIDINE 20 MG TAB PO SCH ×2 (08:26→22:08)
[2021-03-26] MEDS: guaiFENesin 600 MG TABCR PO SCH ×2 (08:26→22:08)
[2021-03-26] MEDS: ENOXAPARIN INJ 60 MG/0.6 ML SYR SQ SCH (08:26)
[2021-03-26] MEDS: MAGNESIUM OXIDE 400 MG TAB PO SCH (08:27)
[2021-03-26] MEDS: POTASSIUM CHLORIDE CRTAB 20 MEQ TABCR PO SCH ×2 (08:28→22:08)
--- NOTE | 2021-03-26 13:05 | Pulmonology Progress Note ---
Date of Service March 26, 2021 Assessment & Plan (1) Acute respiratory failure with hypoxia: (2) Pneumonia due to COVID-19 virus: (3) Transaminitis: (4) Pneumomediastinum: Plan: 61-year-old male with a history of hypertension and obesity who presented to the hospital due to viral pneumonia. Chest x-ray 03/20/2021 personally reviewed: Portable film, moderate rate to the right, diffuse alveolar opacities appreciated bilaterally, increased cardiac silhouette --Acute hypoxic respiratory failure --> now VDRF Secondary to multilobar COVID-19 pneumonia COVID-19 PCR positive 03/16/2021 CRP 18.2 --> 9.75 --> 1.63 S/p Tocilizumab 03/21/2021 Continue with O2 supplementation to keep oxygen saturation between 90-92%. Awake proning will be helpful Continue with incentive spirometry Recommend patient to be kept negative balance --Pneumomediastinum No signs of pneumothorax on the chest x-ray Avoid BiPAP as well as flutter valve for the time being --Transaminitis Trending down Continue to monitor Plan: In/out: Positive for 83 Patient is now intubated Overall prognosis is guarded given the prolonged course and him requiring intubation. Ventilator care as per the ICU Please note the above document was generated using voice recognition software. It may contain grammatical, syntax or spelling errors.Any formal questions or concerns about the content, text or information contained within the body of this dictation should be directly addressed to the provider for clarification. Admission and Anticipated Discharge Date Admission Date: March 20, 2021 Subjective Patient seen and examined. Intubated earlier today because of respiratory distress and requiring 100% oxygen He has been moved into the ICU. Has been afebrile. Review of Systems Review of Systems: All systems reviewed & are unremarkable except as noted in Subjective Physical Exam Physical Exam: Constitutional: Intubated, sedated HEENT: EOMI, PERRLA, positive ETT Respiratory system: Decreased air entry bilaterally, no wheeze, rhonchi, positive crackles bilateral lower lobes CVS: S1-S2 positive, no murmurs or gallops Abdomen: Soft, nontender, nondistended, positive bowel sounds x4, obese Extremities: +2 pulses bilaterally radialis/ dorsalis pedis, no cyanosis, +1 edema bilateral lower extremity Neuro: RASS -1 Psych: Unable to assess G/U: No Rogers Skin: no rashes, warm and dry Lymphatic: no cervical or axillary lymphadenopathy Results & Data Results & Data ([facility]) Vital Signs (Past 12 Hours) Vital Signs Temp Pulse Pulse Pulse Resp BP BP 03/26/21 11:16 55 L 22 03/26/21 11:02 36.7 C 66 24 139/79 03/26/21 09:34 56 L 23 03/26/21 07:56 56 L 03/26/21 07:40 52 L 18 03/26/21 07:36 36.8 C 60 22 128/69 03/26/21 04:00 36.7 C 49 L 14 148/87 H 03/26/21 03:20 20 Pulse Ox 03/26/21 11:16 91 03/26/21 11:02 90 03/26/21 09:34 90 03/26/21 07:56 03/26/21 07:40 90 03/26/21 07:36 86 L 03/26/21 04:00 90 03/26/21 03:20 90 03/26/21 05:27 03/27/21 09:37 PG Care Time/CCT Total # of Minutes Spent Total Time Spent with Patient: Total time spent is greater than 50% in co ordination of care (as documented) at patient's floor/unit and/or counseling patient: Coding Level of Care Code 02536 Subseq Hosp Care Lvl 3 Diagnoses Acute respiratory failure with hypoxia J96.01 Pneumonia due to COVID-19 virus U07.1; J12.82 Transaminitis R74.01 Pneumomediastinum J98.2
[2021-03-26] MEDS ORDERED: SODIUM CHLORIDE 0.65% NA SOLN 45 ML (OCEAN) PRN (17:56)
--- NOTE | 2021-03-26 18:04 | Hospitalist Progress Note ---
Date of Service March 26, 2021 Assessment & Plan (1) Acute respiratory failure with hypoxia: Plan: due to COVID 19 pneumonia, bilateral infiltrates on CXR Was requiring prone positioning and BiPAP while awake, but then weaned down to wall high flow nasal cannula at 11-15 L on 03/23 However, on 03/24 worsened again was placed back on Vapotherm high flow nasal cannula On 03/25, requiring higher amounts of oxygen at 40 L and up to 80 % FiO2 to maintain pulse ox 90-91% On 03/26 switched to Ventilator HFNC at 60L, 100% FiO2 to keep POx>88% He is pronating at times but mostly lying on his side He is starting to get more and more fatigued and depressed on 03/25. No res piratory distress. Encouragement given Was using BiPAP at nighttime, but now on HOLD due to pneumomediastinum Received 1 dose of Lasix 40mg IV on 03/21 and another dose lasix 40mg IV on 03/23 and on 03/25 -Aim for net negative balance Status post tocilizumab on 03/21 CRP trending downward Appreciate pulmonology consultation Chest x-ray on 03/24 stable from previous, continues with pneumomediastinum but no pneumothorax Chest x-ray on 03/25 with improved pneumomediastinum, no pneumothorax, unchanged bilateral significant infiltrates CXR 03/26 similar If becomes lethargic or not mentating properly, could place BiPAP as per pulmonology but trying to avoid positive pressure due to pneumomediastinum Continue dexamethasone 6 mg daily x10-day course Continue antitussives Continue incentive spirometry, but HOLD flutter valve with pneumomediastinum Can get OOB to chair but no excessive Mayela josue type activities -Continue proning as much as possible IV Lasix as needed to keep in a negative fluid balance-none today (2) Pneumonia due to COVID-19 virus: Plan: Symptom onset: approximately March 09, says he just got dyspnea and cough a few days prior to admission-became really short of breath on 03/20 so he came to the ED bilateral infiltrates on CXR, CRP is 18 and now decreased after receiving Tocilizumab and dexamethasone Continue dexamethasone 6mg IV daily, day 7 Continue Rocephin/Zithromax as his cough is productive, gave 5 days of treatment-completed too far along in course of illness to give Remdesivir, no benefit Received Tocilizumab on 03/21 - ECG to follow QT while on azithromycin-QTc 453 on 03/23 CTA chest: no pulmonary embolism, just shows diffuse infiltrates initially CXR as above Follow CXR Appreciate PULM input (3) Pneumomediastinum: Plan: as above should resolve on own-appears improved on chest x-ray today, no palpable subcutaneous crepitus in the neck today continue supplemental O2 avoid BiPAP/CPAP, flutter valve and valsalva maneuvers, excessive exercise follow CXR no pain but use morphine if has pain continue antitussives (4) ROSARIO (acute kidney injury): Plan: - Baseline creatinine less than 1, acutely elevated to 1.61 on admission and now back to normal Received 2 L NSS while in ER. - no further fluid, actually gave Lasix 40mg IV daily as needed Continue KCl 20 BID to try to keep K closer to 4.0 (5) Bradycardia: Plan: with sinus terry during daytime in 40s, drops to 30s at night at times with sinus pauses up to 3.6 sec while not wearing BiPAP and has known AKIL on the night that he had the pneumomediastinum develop Now rates are somewhat improved in the 40s to 60s mostly follow on tele not on meds that would cause AV node blockade not symptomatic, no high grade blocks (6) Transaminitis: Plan: AST and ALT are improving today, no abdominal pain Continue to follow LFTs 09/01 COVID (7) Hypokalemia: Plan: Now resolved with potassium replacement Follow BMP continue KCl replacement (8) Uvular hypertrophy: Plan: Uses CPAP, follows with ENT (9) BPH loc w urin obs/LUTS: Plan: Rogers catheter was in place-has now passed trial of void on 03/22 and continues to urinate without difficulty (10) Epistaxis: Plan: held Lovenox start nasal saline phenylephrine nasal spray prn Plan: DVT prophylaxis: Covid dosed Lovenox-on hold for epistaxis Disposition: Continued stay on COVID unit, PCU, guarded prognosis CODE STATUS: Full code Patient did not want me to call his as he says he is updating her regularly Admission and Anticipated Discharge Date Admission Date: March 20, 2021 Subjective Requiring more O2 today-HFNC up to 60L and 100%FiO2 earlier today when POx was 85% on 40L and 100%. Still very tired, just wants to go home. Is eating a little more today. POx drops with minimal movement. Had a mild nosebleed today that stopped on it's own. Feels some burning in the nose now with the HFNC.This was relieved with nasal saline. He asks how long realistically he will be here and I told him probably another week. [facility] to set daily goals of increasing po intake and getting out of bed to chair. I discussed his care with Dr. Figueroa of [facility] Tele with NSR and SB Review of Systems Review of Systems: All systems reviewed & are unremarkable except as noted in HPI & below Physical Exam Constitutional: WD/WN, vitals as above + ill appearing Eyes: + anicteric sclerae Neck: trachea midline, no thyromegaly Respiratory: normal respiratory effort Auscultation: + diminished lung sounds (At right lower and middle lung hayden) and + crackles (Bilateral lower and middle lung hayden); no rhonchi and no wheezes Cardiovascular: Rate/Rhythm: regular rate and regular rhythm Heart Sounds: no murmur Extremities: no calf tenderness and no edema Chest (Breasts): Chest: normal inspection of chest Gastrointestinal (Abdomen): normal bowel sounds, soft, nontender, no hepatosplenomegaly Musculoskeletal: Extremities: extremities normal to inspection; no cyanosis and no clubbing Skin: no rashes, warm and dry Neurologic: moves all extremities and awake; no focal motor deficits Psychiatric: Orientation: alert and oriented x 3 Affect: + depressed affect Lymphatic: no lymphedema Results & Data Results & Data ([facility]) Vital Signs (Past 12 Hours) Vital Signs Temp Pulse Pulse Resp BP BP Pulse Ox 03/26/21 16:04 36.8 C 62 23 132/71 89 L 03/26/21 16:00 64 03/26/21 15:10 51 L 18 93 03/26/21 11:16 55 L 22 91 03/26/21 11:02 36.7 C 66 24 139/79 90 03/26/21 09:34 56 L 23 90 03/26/21 07:56 56 L 03/26/21 07:40 52 L 18 90 03/26/21 07:36 36.8 C 60 22 128/69 86 L Laboratory Results 03/26/21 03/26/21 Range/Units 05:27 05:27 WBC 7.40 (4.8-10.8) K/uL RBC 4.79 (4.7-6.1) M/uL Hgb 14.6 (14.0-18.0) g/dL Hct 42.6 (42-52) % MCV 88.9 (80-100) fL MCH 30.5 (25-34) pg MCHC 34.3 (32-36) g/dL RDW Std Deviation 41.6 (36.4-46.3) fL RDW Coeff of Sujit 12.9 (11.5-14.5) % Plt Count 356 (130-400) K/uL MPV 9.7 (7.4-10.4) fL Immature Gran % (Auto) 1.4 % Neut % (Auto) 82.0 % Lymph % (Auto) 8.4 % Montague % (Auto) 6.6 % Eos % (Auto) 1.6 % Baso % (Auto) 0.0 % Neut # (Auto) 6.07 (1.4-6.5) K/uL Lymph # (Auto) 0.62 L (1.2-3.4) K/uL [place]ague # (Auto) 0.49 (0.11-0.59) K/uL Eos # (Auto) 0.12 (0-0.5) K/uL Baso # (Auto) 0.00 (0-0.2) K/uL Immature Gran # (Auto) 0.10 H (0.00-0.02) K/uL Sodium 145 (136-145) mmol/L Potassium 4.4 (3.5-5.1) mmol/L Chloride 113 H (98-107) mmol/L Carbon Dioxide 25 (21-32) mmol/L Anion Gap 7.0 (3-11) BUN 30 H (7-18) mg/dl Creatinine 1.00 (0.6-1.4) mg/dl Est Cr Clr Drug Dosing 97.3 ml/min Est GFR ( Amer) 94.4 ml/min Est GFR (Non-Af Amer) 81.4 ml/min BUN/Creatinine Ratio 29.7 H (10-20) Glucose 143 H (70-99) mg/dl Calcium 8.7 (8.5-10.1) mg/dl Magnesium 2.6 H (1.8-2.4) mg/dl Total Bilirubin 0.7 (0.2-1) mg/dl AST 72 H (15-37) U/L ALT 167 H (12-78) U/L Alkaline Phosphatase 107 (45-117) U/L Total Protein 6.1 L (6.4-8.2) gm/dl Albumin 2.8 L (3.4-5.0) gm/dl Globulin 3.3 (2.5-4.0) gm/dl Albumin/Globulin Ratio 0.8 L (0.9-2) PG Care Time/CCT Total # of Minutes Spent Total Time Spent with Patient: Total time spent is greater than 50% in coordination of care (as documented) at patient's floor/unit and/or counseling patient: Coding Level of Care Code 21275 Subseq Hosp Care Lvl 3 Diagnoses Acute respiratory failure with hypoxia J96.01 Pneumonia due to COVID-19 virus U07.1; J12.82 Pneumomediastinum J98.2 ROSARIO (acute kidney injury) N17.9 Bradycardia R00.1 Transaminitis R74.01 Hypokalemia E87.6 Uvular hypertrophy K13.79 BPH loc w urin obs/LUTS N40.1 Epistaxis R04.0
[2021-03-26] MEDS: ACETAMINOPHEN 325 MG TAB PO PRN (22:08)
[2021-03-26] MEDS: HYDROcodone/HOMATROPINE SYRUP 5MG/1.5MG 5ML UDP PO PRN (22:08)
[2021-03-26] MEDS: PHENYLEPHRINE 1% NA SPR 15 ML BTL PRN (22:14)
[2021-03-27] MEDS: PHENYLEPHRINE 1% NA SPR 15 ML BTL PRN (06:19)
[2021-03-27] MEDS: HYDROcodone/HOMATROPINE SYRUP 5MG/1.5MG 5ML UDP PO PRN (06:19)
[2021-03-27] MEDS ORDERED: RAPID SEQUENCE INDUCTION BAG ONE (07:37)
[2021-03-27] MEDS ORDERED: MIDAZOLAM HCL 125MG/250ML D5W ONE (07:42)
[2021-03-27] MEDS ORDERED: VECURONIUM BROMIDE 10 MG VIAL IV ONE ×2 (07:42→22:29)
[2021-03-27] MEDS: MIDAZOLAM HCL 125 MG/250 ML BAG IV SCH ×3 (07:50→23:02)
[2021-03-27] MEDS ORDERED: fentaNYL citrate 100 MCG/2 ML VIAL IV PRN ×2 (08:27)
[2021-03-27] MEDS ORDERED: CISATRACURIUM BESYLATE IV SOLN 2 MG/ML 10 ML VIAL IV STA (08:27)
[2021-03-27] MEDS ORDERED: STAT IV Infusion **Titration per Protocol STA ×3 (08:27→08:39)
[2021-03-27] MEDS ORDERED: MIDAZOLAM BOLUS FROM BAG IV PRN (08:27)
--- NOTE | 2021-03-27 08:32 | Procedure Note ---
Procedure Note Date of Service March 27, 2021 Note Procedure date: Noted above Procedure: Central venous access Pre-procedure indication: Need for vasoactive medication administration Post-procedure Diagnosis: same as above Prior to Procedure: Informed Consent: The risks, benefits, indications, potential complications, and alternatives were explained to the patient and informed consent obtained verbally as the patient is in COVID-19 isolation. Attending Staff: Arleen Wall DO Resident/APC: Not applicable Skin Prep: Chlorhexidine Anesthesia: 4 mL 1% lidocaine without epinephrine The identity of the patient was confirmed and a bedside time out was performed. Description of Procedure: After sterile prep and sterile drape utilizing standard sterile technique the superficial skin of the right subclavian area was anesthetized. The target vessel was identified and entered with an 18-gauge needle. Dark venous blood return was noted. A guidewire was inserted through the needle and into the vessel. The needle was withdrawn and a skin bo was made. A tissue dilator was advanced via Seldinger technique and removed. A triple lumen catheter was inserted via Seldinger technique and the guidewire removed. All ports trevor and flushed easily. A Biopatch was placed, and the catheter was secured via silk suture. A sterile dressing was then applied. Complications: None Estimated blood loss: Trace Patient tolerated the procedure well. Coding CPT Codes Tubes, Drains, and Vasc Access - Tubes, Drains, and Vasc Access: [id number] Insertion Of Non-tunneled Catheter Age 6 Yrs> ([id number]) [facility] [place] Tubes, Drains, and Vasc Access Procedure 1: Tubes, Drains, and Vasc Access: [id number] Insertion Of Non-tunneled Catheter Age 6 Yrs>
--- NOTE | 2021-03-27 08:33 | Critical Care Consultation ---
Date of Consultation March 27, 2021 Assessment & Plan (1) Acute respiratory failure with hypoxia: (2) Pneumonia due to COVID-19 virus: (3) Transaminitis: (4) Pneumomediastinum: Reason Critically Ill: 61-year-old male with COVID-19 pneumonia and acute hypoxic respiratory failure PLAN: Neuro: Neuromuscular blockade with cis atracurium -Bis monitoring Versed infusion and fentanyl infusions Resp: COVID-19 pneumonia -On steroids, received Tocilizumab Pneumomediastinum -No overt signs on chest x-ray -High FiO2 low PEEP table CV: Intermittent tachycardia -Likely sedation related Fluids/Renal: Goal to remain net negative -Diuresis as needed ID: Afebrile no white count GI/Nutrition: Transaminitis -Continue to follow Starting trickle tube feeds Heme: DVT prophylaxis: Lovenox Endocrine: ICU hyperglycemia protocol Vascular access: Right radial A-line, right subclavian central venous catheter Code Status: Full code Disposition: ICU Supervising Physician Co-Signing Physician Notes Patient is critically ill I have personally spent 55 minutes of critical care time in the direct management of this patient. This is a life/limb threatening event. This includes time spent evaluating patient, direct bedside care, chart review, placing orders, interpretation of diagnostic studies, discussion with consultants, patient, and/or family members regarding treatment decisions, as well as other required patient management activities. This time is exclusive of all separately billable procedures, and teaching time and separate from and in addition to any other critical care service time. History of Present Illness Reason for Consultation: Acute hypoxic respiratory failure Requesting Physician: Mounika Hall Attending Physician: Mounika Hall MD History of Present Illness Patient is a 61-year-old male who has been treated with Tocilizumab for COVID-19 pneumonia. He has been self proning for the past several days had increasing oxygen requirements was most recently on 60 L high flow nasal cannula at 100% and was desaturating into the 70s. We have been asked to evaluate the patient for further invasive pulmonary management Allergies Allergy/AdvReac Type Severity Reaction Status Date / Time allopurinol AdvReac Unknown Elevated Verified 03/20/21 15:29 liver panels. morphine AdvReac Unknown slows Verified 03/20/21 15:29 heart rate Home Medications Medication Instructions Recorded Confirmed Type amlodipine 10 mg tablet 10 mg PO DAILY 06/22/20 03/20/21 History losartan 100 mg tablet 100 mg PO DAILY 06/22/20 03/20/21 History mupirocin 2 % topical ointment 1 applic TOPICAL UD 06/22/20 03/20/21 History prednisone 20 mg tablet 20 mg PO DAILY 06/22/20 03/20/21 History solifenacin 10 mg tablet (Vesicare) 10 mg PO DAILY #30 tab 10/13/20 03/20/21 Rx Patient History Medical History Basal cell carcinoma COVID-19 Gout Hypertension Testicular pain Tick bite Transaminitis Surgical History H/O vasectomy Hx of cholecystectomy Hx of colonoscopy Family History Grandmother (Paternal) Hypertension Grandfather (Paternal) Hypertension Father Bladder cancer Social History Smoking Status: Never smoker Hx Alcohol Use: No Hx Substance Use: No Preferred Language: Brazilian Communication Ability: Effective Hand Clipper Required: No Beliefs That Will Affect Care: None marital status: Current Living Situation: Spouse current occupational status: employed Other Information That Helps Us Care for You: No Feels Safe at Home: Yes Safety Concerns: Feels Safe At This Time Assistive Devices: None Review of Systems Review of Systems: Exertional dyspnea no chest pain Physical Exam Physical Exam: General: Alert. nontoxic. Laying prone Skin: Warm, dry, Head: Atraumatic Ears, nose, mouth and throat: airway patent, high flow nasal cannula in place Cardiovascular: Normal peripheral perfusion Respiratory: no respiratory distress, coarse sounds bilaterally Gastrointestinal: Non distended Musculoskeletal: No deformity Results & Data Results & Data ([facility]) Vital Signs (Past 12 Hours) Vital Signs Temp Pulse Pulse Resp BP Pulse Ox 03/27/21 07:14 36.6 C 66 24 160/90 H 95 03/27/21 04:28 37.2 C 61 22 131/69 87 L 03/27/21 02:04 46 L 20 89 L 03/26/21 23:19 37.2 C 57 L 20 134/72 93 Laboratory Results 03/27/21 03/27/21 Range/Units 09:37 09:37 Sodium 142 (136-145) mmol/L Potassium 4.3 (3.5-5.1) mmol/L Chloride 111 H (98-107) mmol/L Carbon Dioxide 25 (21-32) mmol/L Anion Gap 6.0 (3-11) BUN 28 H (7-18) mg/dl Creatinine 1.08 (0.6-1.4) mg/dl Est Cr Clr Drug Dosing 90.0 ml/min Est GFR ( Amer) 86.0 ml/min Est GFR (Non-Af Amer) 74.2 ml/min BUN/Creatinine Ratio 26.1 H (10-20) Glucose 215 H (70-99) mg/dl Calcium 8.5 (8.5-10.1) mg/dl Magnesium 2.3 (1.8-2.4) mg/dl Total Bilirubin 1.6 H D (0.2-1) mg/dl AST 164 H (15-37) U/L ALT 185 H (12-78) U/L Alkaline Phosphatase 156 H (45-117) U/L Total Protein 6.5 (6.4-8.2) gm/dl Albumin 3.0 L (3.4-5.0) gm/dl Globulin 3.5 (2.5-4.0) gm/dl Albumin/Globulin Ratio 0.9 (0.9-2) Blood Type O Positive Antibody Screen NEGATIVE Diagnostic Findings Chest x-rays have been reviewed Coding Level of Care Code Critical Care 1st 30-74 mins Diagnoses Acute respiratory failure with hypoxia J96.01 Pneumonia due to COVID-19 virus U07.1; J12.82 Transaminitis R74.01 Pneumomediastinum J98.2
[2021-03-27] MEDS: fentaNYL DRIP 1,250 MCG/250 ML BAG IV SCH ×4 (08:40→19:40)
--- NOTE | 2021-03-27 09:20 | XRay Report ---
SINGLE VIEW CHEST CLINICAL HISTORY: Covid pneumonia. Respiratory failure. FINDINGS: An AP, portable, supine chest radiograph is compared to study dated 03/26/2021. An endotrach eal tube has been placed. The tip projects over the right mainstem bronchus. A right subclavian centr al venous catheter has been placed. The tip projects over the cavoatrial junction. An enteric tube hurt s been placed. This projects below the diaphragm and the tip is not visualized. The heart is enlarged . There is increasingly confluent airspace consolidation seen throughout both lungs, especially on th e right. Small pleural effusions are suspected. Pneumomediastinum persists. No pneumothorax is identi fied. The bony thorax is grossly intact. There is increasing subcutaneous emphysema in the lower neck . IMPRESSION: 1. An endotracheal tube, an enteric tube, and a right subclavian central venous catheter have been pl aced as above. 2. The tip of the endotracheal tube projects over the right mainstem bronchus. Repositioning is indic ated. 3. No pneumothorax is identified post procedure. 4. Multifocal airspace consolidation is increasingly confluent as compared to yesterday, greatest wit hin the right lung. This may be related to intubation of the right mainstem bronchus. 5. Suspect small pleural effusions. 6. Pneumomediastinum and subcutaneous gas in the lower neck persists. ACT 112: Negative or not required by law. Electronically signed by: Talat Lea M.D. 03/27/2021 9:19 AM
[2021-03-27] MEDS: CISATRACURIUM BESYLATE 40 MG in 0.9 % SODIUM CHLORIDE 80 ML IV SCH ×3 (09:30→22:38)
--- NOTE | 2021-03-27 09:58 | Procedure Note ---
Procedure Note Date of Service March 27, 2021 Note Procedure date: Noted above Procedure: Radial artery cannulation Pre-procedure Diagnosis: Need for invasive monitoring, frequent blood draws Post-procedure Diagnosis: same as above Prior to Procedure: Informed Consent: The risks, benefits, indications, potential complications, and alternatives were explained to the patient and informed consent obtained. Attending Staff: Arleen Wall DO Skin Prep: Chlorhexidine Anesthesia: 3 mL 1% lidocaine without epinephrine The identity of the patient was confirmed and a bedside time out was performed. Description of Procedure: After sterile prep and sterile drape utilizing standard sterile technique the superficial skin of the left radial artery was anesthetized. The target artery was identified via dynamic ultrasound guidance and entered with a 20-gauge arrow Angiocath. Pulsatile bright red blood return was noted. Via modified Seldinger technique the self-contained guidewire was advanced and the Angiocath advanced over the guidewire. The guidewire was removed and brisk arterial blood return was noted. The pressure monitor was connected, and the arterial line was secured via commercial securement device. A sterile dressing was then applied. Complications: None Estimated blood loss: Trace Patient tolerated the procedure well. Coding CPT Codes Tubes, Drains, and Vasc Access - Tubes, Drains, and Vasc Access: [id number] Place Catheter In Artery ([id number]) [facility] Procedure Codes (Charges) Tubes, Drains, and Vasc Access Procedure 1: Tubes, Drains, and Vasc Access: [id number] Place Catheter In Artery
--- NOTE | 2021-03-27 10:00 | Procedure Note ---
Procedure Note Date of Service March 27, 2021 Note Procedure Date: Noted above Procedure: Endotracheal intubation Pre-procedure Diagnosis: Acute hypoxic respiratory failure secondary to COVID-19 pneumonia Post-procedure Diagnosis: same as above Prior to Procedure: Informed Consent: Discussed risks and benefits with the patient and verbal consent was obtained secondary to patient being in isolation for COVID-19 pneumonia Attending Staff: Arleen Wall DO The identity of the patient was confirmed and a bedside time out was performed. Description of Procedure: Patient was evaluated and required intubation for impending respiratory failure. The patient was prepared in the usual fashion. A video laryngoscope was used. A 8 mm inner diameter endotrachial tube was placed endotracheally to 26 cm at the teeth. A grade 1 view was obtained. The endotracheal tube was noted to pass through the vocal cords. Chest rise was bilateral. Bilateral breath sounds were heard without air sounds in the abdomen. Mist was noted in the endotracheal tube. End-tidal CO2 measurement was positive. Chest x-ray shows proper endotracheal tube placement. Complications: Endotracheal tube was retracted 2 cm after chest x-ray visualization Findings: Not applicable Specimens: Not applicable Estimated blood loss: Zero Coding CPT Codes Resuscitation - Resuscitation: 25100 Endotracheal Intubation, emergency ([id number]) [facility] Procedure Codes (Charges) Resuscitation Resuscitation: 49403 Endotracheal Intubation, emergency
[2021-03-27 10:03] LABS: BUN Creatinine Ratio 26.1 (10-20); Calcium 8.5 mg/dl (8.5-10.1); Est GFR (Non-African American) 74.2 ml/min; Magnesium 2.3 mg/dl (1.8-2.4); Potassium 4.3 mmol/L (3.5-5.1)
--- NOTE | 2021-03-27 10:32 | XRay Report ---
SINGLE VIEW CHEST CLINICAL HISTORY: Covid pneumonia. Endotracheal tube repositioning. FINDINGS: An AP, portable, upright chest radiograph is compared to study performed earlier the same d ay 03/27/2021. The examination is degraded by portable technique and patient rotation. An endotrachea l tube has been repositioned. The tip now projects 4.5 cm above the jaguar. An enteric tube and a rig ht subclavian central venous catheter are unchanged in position. The heart is enlarged. Confluent mul tifocal airspace consolidation is again seen throughout both lungs. Small pleural effusions are suspe cted. Pneumomediastinum persists. Question trace right apical pneumothorax. The bony thorax is grossl y intact. There is increasing subcutaneous emphysema in the lower neck. IMPRESSION: 1. An endotracheal tube has been repositioned. The tip now projects 4.5 cm above the jaguar. 2. Question a trace right apical pneumothorax. This is difficult to assess due to overlying subcutane ous emphysema. 3. Multifocal airspace consolidation is unchanged from today's earlier examination. 4. Suspect small pleural effusions. 5. Pneumomediastinum and subcutaneous gas in the lower neck persists. ACT 112: Negative or not required by law. Electronically signed by: Talat Lea M.D. 03/27/2021 10:31 AM
[2021-03-27 10:34] LABS: Albumin Globulin Ratio 0.9 (0.9-2); Bilirubin,Total 1.6 mg/dl (0.2-1); Globulin 3.5 gm/dl (2.5-4.0); Total Protein 6.5 gm/dl (6.4-8.2)
[2021-03-27] MEDS: dexAMETHasone 6 MG in SYRINGE 0 ML IV SCH (11:51)
[2021-03-27] MEDS: FAMOTIDINE 20 MG TAB PO SCH ×2 (11:51→21:38)
[2021-03-27] MEDS: ARTIFICIAL TEARS OP OINT 3.5 GM TUBE OP SCH ×4 (11:58→21:39)
[2021-03-27] MEDS: PEPTAMEN INTENSE VHP 1.0 CAL 1,000 ML BAG GT SCH (16:40)
--- NOTE | 2021-03-27 20:11 | Hospitalist Progress Note ---
Date of Service March 27, 2021 Assessment & Plan (1) Acute respiratory failure with hypoxia: Plan: due to COVID 19 pneumonia, bilateral infiltrates on CXR Was requiring prone positioning and BiPAP while awake, but then weaned down to wall high flow nasal cannula at 11-15 L on 03/23 However, on 03/24 worsened again was placed back on Vapotherm high flow nasal cannula On 03/25, requiring higher amounts of oxygen at 40 L and up to 80 % FiO2 to maintain pulse ox 90-91% On 03/26 switched to Ventilator HFNC at 60L, 100% FiO2 to keep POx>88%---> continued to decompensate on the morning of 03/27 and was intubated and proned Continues with pneumomediastinum-caution with high PEEPs Received 1 dose of Lasix 40mg IV on 03/21 and another dose lasix 40mg IV on 03/23 and on 03/25 -Aim for net negative balance Status post tocilizumab on 03/21 CRP trending downward Appreciate pulmonology consultation Chest x-ray on 03/24 stable from previous, continues with pneumomediastinum but no pneumothorax Chest x-ray on 03/25 with improved pneumomediastinum, no pneumothorax, unchanged bilateral significant infiltrates CXR 03/26 and 03/27 similar Continue dexamethasone 6 mg daily x10-day course Continue antitussives IV Lasix as needed to keep in a negative fluid balance Ventilator management as per grain scooper (2) Pneumonia due to COVID-19 virus: Plan: Symptom onset: approximately March 09, says he just got dyspnea and cough a few days prior to admission-became really short of breath on 03/20 so he came to the ED bilateral infiltrates on CXR, CRP is 18 and now decreased after receiving Tocilizumab and dexamethasone Continue dexamethasone 6mg IV daily, day 8 Continue Rocephin/Zithromax as his cough is productive, gave 5 days of treatment-completed too far along in course of illness to give Remdesivir, no benefit Received Tocilizumab on 03/21 - ECG to follow QT while on azithromycin-QTc 453 on 03/23 CTA chest: no pulmonary embolism, just shows diffuse infiltrates initially CXR as above Follow CXR Appreciate PULM input (3) Pneumomediastinum: Plan: as above should resolve on own Now on mechanical ventilation follow CXR (4) ROSARIO (acute kidney injury): Plan: - Baseline creatinine less than 1, acutely elevated to 1.61 on admission and now back to normal Received 2 L NSS while in ER. - no further fluid, actually gave Lasix 40mg IV daily as needed (5) Bradycardia: Plan: with sinus terry during daytime in 40s, drops to 30s at night at times with sinus pauses up to 3.6 sec while not wearing BiPAP and has known AKIL on the night that he had the pneumomediastinum develop Now rates are somewhat improved follow on tele not on meds that would cause AV node blockade not symptomatic, no high grade blocks (6) Transaminitis: Plan: AST and ALT were improving, but now worsening again with mild elevated total bilirubin Continue to follow LFTs 09/01 COVID (7) Hypokalemia: Plan: Now resolved with potassium replacement Follow BMP continue KCl replacement (8) Uvular hypertrophy: Plan: Uses CPAP as an outpatient, follows with ENT (9) BPH loc w urin obs/LUTS: Plan: Rogers catheter was in place-has now passed trial of void on 03/22 and continues to urinate without difficulty Now on ventilator-replaced Rogers catheter (10) Epistaxis: Plan: held Lovenox on 03/26 nasal saline phenylephrine nasal spray prn Plan: DVT prophylaxis: Covid dosed Lovenox-on hold for epistaxis Disposition: Transition to ICU, guarded prognosis CODE STATUS: Full code Called his and updated her that he was being intubated Admission and Anticipated Discharge Date Admission Date: March 20, 2021 Subjective Pt was transferred to the ICU after being intubated today for worsening respiratory failure. He is now in prone position and paralyzed, sedated. I observed him through the window in the ICU. Physical Exam Constitutional: WD/WN, vitals as above + mechanically ventilated Results & Data Results & Data ([facility]) Vital Signs (Past 12 Hours) Vital Signs Temp Pulse Resp BP Pulse Ox 03/27/21 16:52 127 H 116/89 94 03/27/21 16:22 125 H 117/89 94 03/27/21 16:08 126 H 03/27/21 15:52 123 H 115/85 91 03/27/21 15:22 37.1 C 114 H 115/67 93 03/27/21 15:20 117 H 21 93 03/27/21 14:52 123 H 101/76 91 03/27/21 14:22 37 C 131 H 109/79 91 03/27/21 13:52 134 H 116/91 91 03/27/21 13:22 37.2 C 135 H 117/90 92 03/27/21 12:52 138 H 120/91 92 03/27/21 12:22 142 H 127/92 93 03/27/21 12:02 141 H 03/27/21 11:52 37.1 C 142 H 131/95 93 03/27/21 11:22 138 H 131/92 94 03/27/21 10:52 141 H 124/87 95 03/27/21 10:36 142 H 116/83 94 03/27/21 10:22 142 H 121/87 91 03/27/21 09:52 136 H 137/99 68 L 03/27/21 09:35 123 H 24 78 L 03/27/21 09:17 136 H 18 03/27/21 08:10 115 H 25 H 95 Laboratory Results 03/27/21 03/27/21 Range/Units 09:37 09:37 Sodium 142 (136-145) mmol/L Potassium 4.3 (3.5-5.1) mmol/L Chloride 111 H (98-107) mmol/L Carbon Dioxide 25 (21-32) mmol/L Anion Gap 6.0 (3-11) BUN 28 H (7-18) mg/dl Creatinine 1.08 (0.6-1.4) mg/dl Est Cr Clr Drug Dosing 90.0 ml/min Est GFR ( Amer) 86.0 ml/min Est GFR (Non-Af Amer) 74.2 ml/min BUN/Creatinine Ratio 26.1 H (10-20) Glucose 215 H (70-99) mg/dl Calcium 8.5 (8.5-10.1) mg/dl Magnesium 2.3 (1.8-2.4) mg/dl Total Bilirubin 1.6 H D (0.2-1) mg/dl AST 164 H (15-37) U/L ALT 185 H (12-78) U/L Alkaline Phosphatase 156 H (45-117) U/L Total Protein 6.5 (6.4-8.2) gm/dl Albumin 3.0 L (3.4-5.0) gm/dl Globulin 3.5 (2.5-4.0) gm/dl Albumin/Globulin Ratio 0.9 (0.9-2) Blood Type O Positive Antibody Screen NEGATIVE PG Care Time/CCT Total # of Minutes Spent Total Time Spent with Patient: Total time spent is greater than 50% in coordination of care (as documented) at patient's floor/unit and/or counseling patient: Coding Level of Care Code 61110 Subseq Hosp Care Lvl 1 Diagnoses Acute respiratory failure with hypoxia J96.01 Pneumonia due to COVID-19 virus U07.1; J12.82 Pneumomediastinum J98.2 ROSARIO (acute kidney injury) N17.9 Bradycardia R00.1 Transaminitis R74.01 Hypokalemia E87.6 Uvular hypertrophy K13.79 BPH loc w urin obs/LUTS N40.1 Epistaxis R04.0
[2021-03-27] MEDS ORDERED: fentaNYL citrate 100 MCG/2 ML VIAL IV ONE (22:29)
[2021-03-27] MEDS ORDERED: ETOMIDATE 2 MG/ML 20 ML VIAL IV ONE (22:29)
[2021-03-28] MEDS: ARTIFICIAL TEARS OP OINT 3.5 GM TUBE OP SCH ×6 (01:35→20:15)
[2021-03-28] MEDS: fentaNYL DRIP 1,250 MCG/250 ML BAG IV SCH ×7 (02:39→23:04)
[2021-03-28] MEDS: CISATRACURIUM BESYLATE 40 MG in 0.9 % SODIUM CHLORIDE 80 ML IV SCH ×7 (05:37→20:40)
[2021-03-28 05:50] LABS: Albumin Level 2.9 gm/dl (3.4-5.0); Bilirubin,Total 0.6 mg/dl (0.2-1); Calcium 8.3 mg/dl (8.5-10.1); Creatinine Clr Calc Pharmacy 88.4 ml/min; Est GFR (African American) 84.1 ml/min; Est GFR (Non-African American) 72.6 ml/min; Phosphorus 5.3 mg/dl (2.5-4.9); Total Protein 6.4 gm/dl (6.4-8.2)
[2021-03-28 05:57] LABS: iSTAT Allen Test Pass; iSTAT Arterial Blood Gas HCO3 28 meg/L (19-24); iSTAT Arterial Blood Gas pCO2 81 mmHg (35-46); iSTAT Arterial Blood Gas pH 7.14 (7.35-7.45); iSTAT Arterial Blood Gas pO2 58 mmHg (80-95); iSTAT Carbon Dioxide 30 mmol/L (24-31); iSTAT FiO2 100 %; iSTAT Site L Radial
[2021-03-28 06:28] LABS: iSTAT Allen Test Pass; iSTAT Arterial Blood Gas HCO3 25 meg/L (19-24); iSTAT Arterial Blood Gas pCO2 66 mmHg (35-46); iSTAT Arterial Blood Gas pH 7.19 (7.35-7.45); iSTAT Arterial Blood Gas pO2 73 mmHg (80-95); iSTAT Carbon Dioxide 27 mmol/L (24-31); iSTAT Site L Radial
[2021-03-28 06:45] LABS: INR 1.1 (0.9-1.1); Prothrombin Time 10.9 Seconds (9.0-12.0)
[2021-03-28 06:46] LABS: Basophils # (auto) 0.02 K/uL (0-0.2); Basophils % (auto) 0.1 %; Eosinophils # (auto) 0.05 K/uL (0-0.5); Eosinophils % (auto) 0.3 %; Hematocrit (blood only) 49.3 % (42-52); Hemoglobin 16.4 g/dL (14.0-18.0); Immature Granulocytes # (auto) 0.15 K/uL (0.00-0.02); Immature Granulocytes % (auto) 0.9 %; Lymphocytes % (auto) 7.7 %; Mean Corpuscular Hemoglobin 31.2 pg (25-34); Mean Corpuscular Hgb Conc 33.3 g/dL (32-36); Mean Corpuscular Volume 93.7 fL (80-100); Mean Platelet Volume 9.7 fL (7.4-10.4); Monocytes # (auto) 0.32 K/uL (0.11-0.59); Monocytes % (auto) 1.9 %; Neutrophils # (auto) 15.13 K/uL (1.4-6.5); Neutrophils % (auto) 89.1 %; Platelet Count 231 K/uL (130-400); RDW Coefficient of Variation 13.5 % (11.5-14.5); RDW Standard Deviation 46.2 fL (36.4-46.3); Red Blood Count 5.26 M/uL (4.7-6.1); White Blood Count 16.97 K/uL (4.8-10.8)
[2021-03-28] MEDS: BENZONATATE 100 MG CAPSULE PO SCH (06:50)
[2021-03-28] MEDS: POTASSIUM CHLORIDE CRTAB 20 MEQ TABCR PO SCH (06:51)
[2021-03-28] MEDS: MAGNESIUM OXIDE 400 MG TAB PO SCH (06:51)
[2021-03-28] MEDS: guaiFENesin 600 MG TABCR PO SCH (06:51)
[2021-03-28 06:54] LABS: Bilirubin Direct 0.2 mg/dl (0-0.2); Magnesium 2.5 mg/dl (1.8-2.4)
[2021-03-28] MEDS: dexAMETHasone 6 MG in SYRINGE 0 ML IV SCH (07:41)
[2021-03-28] MEDS: FAMOTIDINE 20 MG TAB PO SCH (07:41)
[2021-03-28] MEDS ORDERED: SODIUM POLYSTYRENE SULFONATE 15G/60ML SUSP PO STA (08:00)
[2021-03-28] MEDS ORDERED: DEXTROSE 50% 50 ML SYRINGE IV STA (08:02)
[2021-03-28] MEDS ORDERED: STAT IV Infusion **Titration per Protocol STA ×2 (08:03→11:34)
[2021-03-28] MEDS ORDERED: PROPOFOL BOLUS FROM BAG IV PRN (08:03)
--- NOTE | 2021-03-28 08:29 | XRay Report ---
XR chest 1V portable HISTORY: intubation COMPARISON: Chest 03/19/2021. FINDINGS: Lines and tubes remain unchanged in position with the endotracheal tube terminates 4.5 cm f rom the jaguar. No pneumothorax. Multifocal bilateral airspace opacities persist and are consistent w ith a viral pneumonia. The heart remains mildly enlarged. IMPRESSION: 1. Satisfactory support line placement. 2. No change in the multifocal bilateral airspace opacities consistent with a viral pneumonia. 3. The pneumomediastinum and subcutaneous emphysema within the neck base has resolved. ACT 112: Negative or not required by law. Electronically signed by: Marco A Yee M.D. 03/28/2021 8:28 AM
[2021-03-28] MEDS ORDERED: CALCIUM GLUCONATE 10% 1,000 MG in SODIUM CHLORIDE 0.9% 50 ML IV ONE (08:30)
[2021-03-28] MEDS ORDERED: INSULIN HUMAN REGULAR PER UNIT 10 UNITS in SYRINGE 9.9 ML IV ONE (08:30)
[2021-03-28] MEDS: ENOXAPARIN INJ 60 MG/0.6 ML SYR SQ SCH ×2 (08:39→20:16)
[2021-03-28] MEDS: propofoL 1,000 MG/100 ML VIAL IV SCH ×2 (08:42→17:17)
[2021-03-28] MEDS ORDERED: NOREPINEPHRINE/D5W 8 MG/508 ML IV ONE ×2 (09:52→11:00)
--- NOTE | 2021-03-28 11:38 | Procedure Note ---
Procedure Note Date of Service March 28, 2021 Note ARTERIAL LINE PROCEDURE NOTE: Procedure: Arterial Line Placement Attending: Dr. Carly Figueroa MD Indication: Monitoring on Pressors Anesthesia: General anesthesia Emergent consent was applied A time-out was completed verifying correct patient, procedure, site, positioning, and implant(s) or special equipment if applicable. Allens test was performed to ensure adequate perfusion. Patients left wrist was prepped and draped in the usual sterile fashion. Ultrasound guidance was used to aid needle placement. A 20g Arrow arterial line was introduced into the left radial artery. Catheter was threaded, and the needle was removed with appropriate pulsatile blood return. Good waveform was observed on the monitor. The patient tolerated the procedure well. Confirmation of placement with ultrasound. Images saved to medical record. Complications: None Blood Loss: Less than 2 cc Coding CPT Codes Tubes, Drains, and Vasc Access - Tubes, Drains, and Vasc Access: [id number] Place Catheter In Artery ([id number]) Tubes, Drains, and Vasc Access - Tubes, Drains, and Vasc Access: [id number] Ultrasound Guidance For Vascular ([id number]) [facility] [place] C[place] (Charges) Tubes, Drains, and Vasc Access Procedure 1: Tubes, Drains, and Vasc Access: [id number] Place Catheter In Artery Procedure 2: Tubes, Drains, and Vasc Access: [id number] Ultrasound Guidance For Vascular
--- NOTE | 2021-03-28 11:38 | Critical Care Progress Note ---
Date of Service March 28, 2021 Assessment & Plan (1) Acute respiratory failure with hypoxia: (2) Pneumonia due to COVID-19 virus: (3) Transaminitis: (4) Pneumomediastinum: Plan: Reason Critically Ill: 61-year-old male with past medical history of hypertension admitted to the hospital for COVID-19 pneumonia and acute hypoxic respiratory failure, intubated 03/27/2021 PLAN: Neuro: Neuromuscular blockade with cisatracurium -Bis monitoring Propofol infusion and fentanyl infusions Resp: --VDRF with acute hypoxic respiratory failure Secondary to multilobar COVID-19 pneumonia COVID-19 PCR positive 03/16/2021 CRP 18.2 --> 9.75 --> 1.63 S/p Tocilizumab 03/21/2021 Intubated 03/27/2021 Continue with lung protective ventilation High PEEP, low tidal volume to keep Plateau < 30 with permissive hypercapnea if need be. Monitor ABGs ARDS net high-dose steroid protocol --Pneumomediastinum No signs of pneumothorax on the chest x-ray CV: Shock likely sec to sedation plus covid 19 c/w vasopressor to keep MAP >65 Fluids/Renal: Hyperkalemia Goal to remain net negative -Diuresis as needed ID: no signs of super infection right now GI/Nutrition: Transaminitis -Continue to follow c/w trickle tube feeds Heme: Leukocytosis Likely from steroids Continue to monitor Endocrine: ICU hyperglycemia protocol --Prophylaxis VTE: Lovenox GI: Protonix Lines: Left radial, right subclavian, positive Rogers Diet: Trickle tube feeds Plan: In/out: -297, urine output 1330 Unfortunately we have not made any headway when it comes to patient's oxygenation requirement. Is still on 90% FiO2 and PEEP of 12 Patient driving pressure increases significantly on increasing the PEEP anymore. Does go with stiff lungs. For hyperkalemia patient got Kayexalate as well as calcium gluconate. I did order CPK to make sure patient is not in rhabdo from the hypotension that he had Vasopressor Levophed has been started to keep MAP greater than 65 We will prone the patient again today. I will start the patient on ARDS net dexamethasone protocol 20 mg of dexamethasone for 5 days followed by 10 mg for 5 days. Change Pepcid to Protonix twice daily. Patient's Mrs. Emperatriz Neri [phone] was called and made aware of the patient's current condition and prognosis. In the event of cardiac arrest no CPR to be done. Continue with current care I spoke with Dr. Amaya who is Dr. call center dispatcher for ECMO at [place]. He is unsure whether he will do ECMO on this patient with would like if hand binder stripper accept the patient over there at [place] so that he can personally look at the patient and then decide. I have personally spent 60 minutes of critical care time in the direct management of this patient. This is a life/limb threatening event. This includes time spent evaluating patient, direct bedside care, chart review, placing orders, interpretation of diagnostic studies, discussion with consultants, patient, and family members, as well as other required patient management activities. This time is exclusive of all separately billable procedures, and teaching time and separate from and in addition to any other critical care service time. Please note the above document was generated using voice recognition software. It may contain grammatical, syntax or spelling errors. Admission and Anticipated Discharge Date Admission Date: March 20, 2021 Subjective Patient seen and examined at bedside. No acute distress. Patient has been paralyzed T-max 38 Paralyzed On propofol 20, fentanyl 175 at the time of examination Review of Systems Review of Systems: Unobtainable due to mental health condition Physical Exam Physical Exam: Constitutional: Intubated, sedated HEENT: PERRLA, positive ETT Respiratory system: Decreased air entry bilaterally, no wheeze, rhonchi, positive crackles bilateral lower lobes CVS: S1-S2 positive, no murmurs or gallops Abdomen: Soft, nontender, nondistended, positive bowel sounds x4, obese Extremities: +2 pulses bilaterally radialis/ dorsalis pedis, no cyanosis, no edema Neuro: RASS -1 Psych: Unable to assess G/U: Positive Rogers Skin: no rashes, warm and dry Lymphatic: no cervical or axillary lymphadenopathy Results & Data Results & Data ([facility]) Vital Signs (Past 12 Hours) Vital Signs Temp Pulse Resp BP Pulse Ox 03/28/21 10:41 37.9 C H 99 H 113/80 94 03/28/21 10:11 37.9 C H 97 H 111/77 93 03/28/21 10:00 108 H 03/28/21 09:41 37.8 C H 103 H 108/77 92 03/28/21 09:11 37.6 C H 104 H 116/80 92 03/28/21 08:56 37.6 C H 94 H 134/83 92 03/28/21 08:26 37.5 C 107 H 144/82 H 93 03/28/21 07:45 108 H 28 H 95 03/28/21 07:33 37.4 C 111 H 112/87 94 03/28/21 06:52 37.2 C 113 H 113/90 93 03/28/21 06:20 28 H 03/28/21 05:30 24 03/28/21 03:30 117 H 16 95 03/28/21 05:22 03/28/21 06:12 Coding Level of Care Code Critical Care 1st 30-74 mins Diagnoses Acute respiratory failure with hypoxia J96.01 Pneumonia due to COVID-19 virus U07.1; J12.82 Transaminitis R74.01 Pneumomediastinum J98.2 Time Spent (min) 60
--- NOTE | 2021-03-28 11:38 | Communication Note ---
Date of Service: March 28, 2021 Critical CARE addendum Procedure: Pronation Maneuver Indication: Requiring lung recruitment intervention in the setting of advanced ARDS with poor lung compliance and oxygenation on standard ventilator settings. Patient requiring pronation in the setting of advanced ARDS per imaging, ventilator requirements, and calculated P:F ratio. Appropriate staff was assembled including myself, Respiratory Therapy, and Nursing Staff. A time-out was completed verifying correct patient, time from recent pronation current ventilator settings, review of any prior issues during pronation/supination maneuvers. Patient was fully undressed as to be able to view all current IV sites, central venous access sites, arterial lines, endotracheal tube, Rogers catheter, etc. After properly identifying/securing all lines, tubes, etc, On my count, the patient was slid to the edge of the bed. After reevaluating all lines, tubes, etc., the patient was then placed on their side allowing for RT to maintain control of ET tube and ready for completion of Pronation maneuver. Final check of all lines, tubes, etc. was completed by myself and nursing staff. Patient was getting adequate tidal volume. Blood pressure, heart rhythm, and oxygen saturations were monitored for several minutes s/p maneuver. Discussion was held with patients RN and RT regarding ongoing management. Patient tolerated maneuver well. No immediate complications were noted. I have personally spent 25 additional minutes of critical care time in the direct management of this patient. This is a life/limb threatening event. This includes time spent evaluating patient, direct bedside care, chart review, placing orders, interpretation of diagnostic studies, discussion with consultants, patient, and family members, as well as other required patient management activities. This time is exclusive of all separately billable procedures, and teaching time and separate from and in addition to any other critical care service time Coding Level of Care Code Critical Care ea addt'l 30 min Time Spent (min) 25
[2021-03-28] MEDS: NOREPINEPHRINE/D5W 8 MG/508 ML BAG IV SCH (11:48)
[2021-03-28 12:01] LABS: Base Excess ABG -4.1 mEq/L (-9-1.8); HCO3 ABG 24 mmol/L (19-24); PCO2 ABG 54 mmHg (35-46); PO2 ABG 100 mmHg (80-95); pH ABG 7.26 (7.35-7.45)
[2021-03-28 12:02] LABS: Allen Test ALINE (Pos)
[2021-03-28 12:20] LABS: Albumin Level 2.8 gm/dl (3.4-5.0); BUN Creatinine Ratio 26.2 (10-20); Calcium 8.6 mg/dl (8.5-10.1); Est GFR (African American) 80.6 ml/min; Est GFR (Non-African American) 69.5 ml/min; Magnesium 2.8 mg/dl (1.8-2.4); Potassium 5.7 mmol/L (3.5-5.1)
[2021-03-28 12:26] LABS: Albumin Globulin Ratio 0.8 (0.9-2); Bilirubin,Total 0.7 mg/dl (0.2-1); Globulin 3.5 gm/dl (2.5-4.0); Phosphorus 3.3 mg/dl (2.5-4.9); Total Protein 6.3 gm/dl (6.4-8.2)
[2021-03-28] MEDS ORDERED: PATIROMER CALCIUM SORBITEX 8.4 GM PACK PO ONE (13:45)
[2021-03-28] MEDS ORDERED: dexAMETHasone 14 MG in SYRINGE 0 ML IV ONE (13:45)
[2021-03-28] MEDS: PEPTAMEN INTENSE VHP 1.0 CAL 1,000 ML BAG GT SCH (14:36)
[2021-03-28] MEDS: TUBE FEEDING WATER FLUSH GT SCH ×2 (14:37→17:17)
[2021-03-28 14:39] LABS: BUN Creatinine Ratio 27.4 (10-20); Calcium 8.7 mg/dl (8.5-10.1); Creatinine Clr Calc Pharmacy 94.1 ml/min; Est GFR (African American) 91.1 ml/min; Est GFR (Non-African American) 78.6 ml/min; Potassium 5.8 mmol/L (3.5-5.1)
--- NOTE | 2021-03-28 16:49 | Communication Note ---
Date of Service: March 28, 2021 Critical CARE addendum: I spoke with Dr. Amaya and Dr Miller from [facility] for possible transfer for ECMO. Unfortunately do not have enough beds and they would not be able to accept him I also spoke with Dr. Carol Garzon at [facility] who stated that patient is not a candidate given that he is greater than 55 years old and has been on high flow for more than 3 days. Please note the above document was generated using voice recognition software. It may contain grammatical, syntax or spelling errors.Any formal questions or concerns about the content, text or information contained within the body of this dictation should be directly addressed to the provider for clarification. Coding Level of Care Code None
[2021-03-28 18:25] LABS: Calcium 8.7 mg/dl (8.5-10.1); Creatinine Clr Calc Pharmacy 91.4 ml/min; Est GFR (Non-African American) 75.9 ml/min; Potassium 5.6 mmol/L (3.5-5.1)
--- NOTE | 2021-03-28 19:36 | Hospitalist Progress Note ---
Date of Service March 28, 2021 Assessment & Plan (1) Acute respiratory failure with hypoxia: Plan: due to COVID 19 pneumonia, bilateral infiltrates on CXR Was requiring prone positioning and BiPAP while awake, but then weaned down to wall high flow nasal cannula at 11-15 L on 03/23 However, on 03/24 worsened again was placed back on Vapotherm high flow nasal cannula On 03/25, requiring higher amounts of oxygen at 40 L and up to 80 % FiO2 to maintain pulse ox 90-91% On 03/26 switched to Ventilator HFNC at 60L, 100% FiO2 to keep POx>88%---> continued to decompensate on the morning of 03/27 and was intubated and proned Pneumomediastinum is now resolved on x-ray Received 1 dose of Lasix 40mg IV on 03/21 and another dose lasix 40mg IV on 03/23 and on 03/25 -Aim for net negative balance Status post tocilizumab on 03/21 CRP trending downward Appreciate pulmonology consultation Chest x-ray on 03/24 stable from previous, continues with pneumomediastinum but no pneumothorax Chest x-ray on 03/25 with improved pneumomediastinum, no pneumothorax, unchanged bilateral significant infiltrates CXR 03/26 and 03/27, 03/28 similar with multifocal bilateral airspace opacities Continue dexamethasone however on 03/28 was increased to high-dose with 20 mg daily IV Lasix as needed to keep in a negative fluid balance Ventilator management as per business intern Stretching Machine Operator contacted [facility] about ECMO-no beds available on 03/28. [facility] said that he is not a candidate for ECMO at their facility as age greater than 56 and was on high flow nasal cannula for greater than 3 days (2) Pneumonia due to COVID-19 virus: Plan: Symptom onset: approximately March 09, says he just got dyspnea and cough a few days prior to admission-became really short of breath on 03/20 so he came to the ED bilateral infiltrates on CXR, CRP 18 and then decreased after receiving Tocilizumab and dexamethasone Continue dexamethasone as above-now day 9 overall but on high-dose Completed 5-day course of Rocephin/Zithromax too far along in course of illness to give Remdesivir, no benefit Received Tocilizumab on 03/21 - ECG to follow QT while on azithromycin-QTc 453 on 03/23 CTA chest: no pulmonary embolism, just shows diffuse infiltrates initially CXR as above Follow CXR Appreciate PULM input (3) Pneumomediastinum: Plan: Now resolved (4) ROSARIO (acute kidney injury): Plan: - Baseline creatinine less than 1, acutely elevated to 1.61 on admission and now back to normal Received 2 L NSS while in ER. - no further fluid, actually gave Lasix 40mg IV daily as needed (5) Bradycardia: Plan: with sinus terry during daytime in 40s, drops to 30s at night at times with sinus pauses up to 3.6 sec while not wearing BiPAP and has known AKIL on the night that he had the pneumomediastinum develop Now rates are normal to tachycardic follow on tele not on meds that would cause AV node blockade not symptomatic, no high grade blocks (6) Transaminitis: Plan: AST and ALT were improving, but now worsening again with mild elevated total bilirubin and elevated lipase today Likely secondary to Covid infection versus medication side effect? He had no complaints of abdominal pain prior to being intubated-do not suspect cholecystitis or pancreatitis Continue to follow LFTs / COVID (7) Hypokalemia: Plan: Resolved with potassium replacement Now with hyperkalemia on 03/28 Treated with calcium gluconate and Kayexalate Follow BMP (8) Uvular hypertrophy: Plan: Uses CPAP as an outpatient, follows with ENT (9) BPH loc w urin obs/LUTS: Plan: Rogers catheter back in place after intubation (10) Epistaxis: Plan: held Lovenox on 03/26 nasal saline phenylephrine nasal spray prn Restarted Lovenox once intubated (11) Elevated lipase: Plan: As above (12) Hypotension: Plan: Now on Levophed Likely secondary to sedation Plan: DVT prophylaxis: High-dose Lovenox, SCDs Disposition: Continued stay in ICU, very guarded prognosis CODE STATUS: Stretching Machine Operator discussed care with on 03/28-was made a DNR and she is aware of his very guarded prognosis Admission and Anticipated Discharge Date Admission Date: March 20, 2021 Subjective Patient remains ventilated and is having difficulty with hypotension requiring Levophed, and requiring 100% FiO2. He is in prone position when I saw him. I discussed his care with the business intern. He made calls to see if patient could be accepted in transfer for ECMO, but there were either no beds available or he was not considered to be a good candidate. Physical Exam Constitutional: + mechanically ventilated Results & Data Results & Data ([facility]) Vital Signs (Past 12 Hours) Vital Signs Temp Pulse Resp BP Pulse Ox 03/28/21 17:11 37.7 C H 110 H 147/101 H 97 03/28/21 16:41 37.8 C H 94 H 133/88 94 03/28/21 16:11 37.9 C H 86 125/84 94 03/28/21 15:41 38.0 C H 94 H 120/85 94 03/28/21 15:11 38.0 C H 91 H 114/85 95 03/28/21 15:10 86 30 H 95 03/28/21 14:41 38.0 C H 91 H 111/78 95 03/28/21 14:11 37.9 C H 97 H 126/98 95 03/28/21 13:41 38.0 C H 97 H 117/73 94 03/28/21 13:11 37.9 C H 103 H 113/76 93 03/28/21 12:41 37.9 C H 102 H 118/79 93 03/28/21 12:11 37.9 C H 104 H 119/82 95 03/28/21 11:41 37.9 C H 98 H 163/119 H 96 03/28/21 11:03 38.0 C H 86 84/58 L 95 03/28/21 11:00 88 28 H 97 03/28/21 10:41 37.9 C H 99 H 113/80 94 03/28/21 10:11 37.9 C H 97 H 111/77 93 03/28/21 10:00 108 H 03/28/21 09:41 37.8 C H 103 H 108/77 92 03/28/21 09:11 37.6 C H 104 H 116/80 92 03/28/21 08:56 37.6 C H 94 H 134/83 92 03/28/21 08:26 37.5 C 107 H 144/82 H 93 03/28/21 07:45 108 H 28 H 95 PG Care Time/CCT Total # of Minutes Spent Total Time Spent with Patient: Total time spent is greater than 50% in coordination of care (as documented) at patient's floor/unit and/or counseling patient: Coding Level of Care Code 26178 Subseq Hosp Care Lvl 1 Diagnoses Acute respiratory failure with hypoxia J96.01 Pneumonia due to COVID-19 virus U07.1; J12.82 Pneumomediastinum J98.2 ROSARIO (acute kidney injury) N17.9 Bradycardia R00.1 Transaminitis R74.01 Hypokalemia E87.6 Uvular hypertrophy K13.79 BPH loc w urin obs/LUTS N40.1 Epistaxis R04.0 Elevated lipase R74.8 Hypotension I95.9
[2021-03-28] MEDS: LANSOPRAZOLE 30 MG SOLTAB OG SCH (20:16)
[2021-03-28] MEDS ORDERED: PANTOprazole 40 MG TAB PO SCH (21:00)
[2021-03-29] MEDS: propofoL 1,000 MG/100 ML VIAL IV SCH ×8 (01:25→23:24)
[2021-03-29] MEDS: ARTIFICIAL TEARS OP OINT 3.5 GM TUBE OP SCH ×6 (01:53→20:00)
[2021-03-29] MEDS: CISATRACURIUM BESYLATE 40 MG in 0.9 % SODIUM CHLORIDE 80 ML IV SCH ×7 (01:55→19:27)
[2021-03-29] MEDS: TUBE FEEDING WATER FLUSH GT SCH ×7 (02:11→23:55)
[2021-03-29 04:39] LABS: iSTAT Arterial Blood Gas HCO3 25 meg/L (19-24); iSTAT Arterial Blood Gas pCO2 45 mmHg (35-46); iSTAT Arterial Blood Gas pH 7.34 (7.35-7.45); iSTAT Arterial Blood Gas pO2 65 mmHg (80-95); iSTAT Carbon Dioxide 26 mmol/L (24-31); iSTAT Site Art Line
[2021-03-29 04:59] LABS: Basophils # (auto) 0.01 K/uL (0-0.2); Basophils % (auto) 0.1 %; Hemoglobin 15.1 g/dL (14.0-18.0); Immature Granulocytes # (auto) 0.09 K/uL (0.00-0.02); Immature Granulocytes % (auto) 0.5 %; Lymphocytes % (auto) 5.4 %; Mean Corpuscular Hemoglobin 30.4 pg (25-34); Mean Corpuscular Hgb Conc 33.6 g/dL (32-36); Mean Corpuscular Volume 90.7 fL (80-100); Mean Platelet Volume 10.4 fL (7.4-10.4); Monocytes # (auto) 0.26 K/uL (0.11-0.59); Monocytes % (auto) 1.6 %; Neutrophils # (auto) 15.35 K/uL (1.4-6.5); Neutrophils % (auto) 92.4 %; Platelet Count 267 K/uL (130-400); RDW Coefficient of Variation 13.3 % (11.5-14.5); Red Blood Count 4.96 M/uL (4.7-6.1); White Blood Count 16.61 K/uL (4.8-10.8)
[2021-03-29] MEDS: fentaNYL DRIP 1,250 MCG/250 ML BAG IV SCH ×7 (05:06→19:47)
[2021-03-29 05:23] LABS: BUN Creatinine Ratio 26.6 (10-20); Calcium 8.3 mg/dl (8.5-10.1); Creatinine Clr Calc Pharmacy 76.3 ml/min; Est GFR (African American) 70.7 ml/min; Magnesium 2.6 mg/dl (1.8-2.4); Potassium 4.8 mmol/L (3.5-5.1)
[2021-03-29] MEDS: ENOXAPARIN INJ 60 MG/0.6 ML SYR SQ SCH ×2 (07:16→20:07)
[2021-03-29] MEDS: LANSOPRAZOLE 30 MG SOLTAB OG SCH ×2 (07:17→20:21)
[2021-03-29] MEDS: dexAMETHasone 20 MG in DEXTROSE 5% 25 ML IV SCH (07:19)
[2021-03-29] MEDS ORDERED: SODIUM PHOSPHATE 3 MMOL/1 ML INFUSION IV STA (07:32)
--- NOTE | 2021-03-29 07:34 | Critical Care Progress Note ---
Date of Service March 29, 2021 Assessment & Plan (1) Acute respiratory failure with hypoxia: (2) Pneumonia due to COVID-19 virus: (3) Transaminitis: (4) Pneumomediastinum: Plan: Reason Critically Ill: 61-year-old male with past medical history of hypertension admitted to the hospital for COVID-19 pneumonia and acute hypoxic respiratory failure, intubated 03/27/2021 PLAN: Neuro: Neuromuscular blockade with cisatracurium -Bis monitoring Propofol infusion and fentanyl infusions -Midazolam added 03/29/2021 when paralytics were taken off Resp: --VDRF with acute hypoxic respiratory failure Secondary to multilobar COVID-19 pneumonia COVID-19 PCR positive 03/16/2021 CRP 18.2 --> 9.75 --> 1.63 S/p Tocilizumab 03/21/2021 Intubated 03/27/2021 Continue with lung protective ventilation High PEEP, low tidal volume to keep Plateau < 30 with permissive hypercapnea if need be. Monitor ABGs ARDS net high-dose steroid protocol Kate as well as [place] ECMO team where contacted on 03/28/2021, unfortunately he is not a candidate from either side. --Pneumomediastinum No signs of pneumothorax on the chest x-ray CV: Shock likely sec to sedation plus covid 19 c/w vasopressor to keep MAP >65 Fluids/Renal: Goal to remain net negative -Diuresis as needed ID: no signs of super infection right now GI/Nutrition: Transaminitis -Continue to follow c/w trickle tube feeds Heme: Leukocytosis Likely from steroids Continue to monitor Endocrine: ICU hyperglycemia protocol --Prophylaxis VTE: Lovenox GI: Lansoprazole Lines: Left radial, right subclavian, positive Rogers Diet: Trickle tube feeds Plan: In/out: +1627, urine output 1350 ABG 7.34/45/65 No clear pneumomediastinum appreciated on the chest x-ray today. Bilateral alveolar opacity still persists. Potassium is improving There is a little bump in creatinine compared to before. This could be from the hypotensive episode that he had I will give 20 mg of Lasix today Patient is having asynchronous breathing. It looks more like acute diaphragmatic contraction/hiccups. It is very frequent which gives the tidal volume of 2 L In a patient who is in ARDS I would not like such high tidal volumes as it will cause barotrauma. I will paralyze him again and prone him later. Midazolam was added as initial plan was to take him off paralytics. Once he is paralyzed again we will continue with propofol and fentanyl. Patient's Mrs. Emperatriz Neri [phone] I have personally spent 41 minutes of critical care time in the direct management of this patient. This is a life/limb threatening event. This includes time spent evaluating patient, direct bedside care, chart review, placing orders, interpretation of diagnostic studies, discussion with consultants, patient, and family members, as well as other required patient management activities. This time is exclusive of all separately billable procedures, and teaching time and separate from and in addition to any other critical care service time. Please note the above document was generated using voice recognition software. It may contain grammatical, syntax or spelling errors. Admission and Anticipated Discharge Date Admission Date: March 20, 2021 Subjective Patient seen and examined at bedside. No acute distress. Paralytics were stopped today as it was more than 48 hours since initiation. Patient was on PEEP of 10 FiO2 50% saturating around 90% Patient was on 40 of propofol, 6 of midazolam, 300 of fentanyl On Levophed low-dose. T-max 38 Review of Systems Review of Systems: Unobtainable due to mental health condition Physical Exam Physical Exam: Constitutional: Intubated, sedated HEENT: PERRLA, positive ETT Respiratory system: Decreased air entry bilaterally, no wheeze, rhonchi, positive crackles bilateral lower lobes CVS: S1-S2 positive, no murmurs or gallops Abdomen: Soft, nontender, nondistended, positive bowel sounds x4, obese Extremities: +2 pulses bilaterally radialis/ dorsalis pedis, no cyanosis, no edema Neuro: RASS -1, breathing over the vent, positive corneal, positive gag Psych: Unable to assess G/U: Positive Rogers Skin: no rashes, warm and dry Lymphatic: no cervical or axillary lymphadenopathy Results & Data Results & Data ([facility]) Vital Signs (Past 12 Hours) Vital Signs Temp Pulse Resp BP Pulse Ox 03/29/21 04:19 68 30 H 92 03/29/21 01:41 37.6 C H 73 121/76 94 03/29/21 01:11 37.6 C H 73 119/74 95 03/29/21 00:41 37.7 C H 76 119/75 94 03/29/21 00:11 37.7 C H 76 123/81 95 03/28/21 23:41 37.7 C H 77 121/78 94 03/28/21 23:11 37.6 C H 84 134/93 93 03/28/21 23:08 84 30 H 94 03/28/21 22:41 37.7 C H 78 117/76 94 03/28/21 22:11 37.7 C H 80 116/78 93 03/28/21 21:41 37.7 C H 84 115/80 93 03/28/21 21:11 37.7 C H 89 116/78 93 03/28/21 20:34 94 H 30 H 91 03/28/21 20:30 37.8 C H 91 H 116/78 92 03/28/21 20:11 37.8 C H 91 H 137/97 94 03/28/21 19:42 37.8 C H 94 H 158/104 H 94 03/29/21 04:18 03/29/21 04:18 Coding Level of Care Code Critical Care 1st 30-74 mins Diagnoses Acute respiratory failure with hypoxia J96.01 Pneumonia due to COVID-19 virus U07.1; J12.82 Transaminitis R74.01 Pneumomediastinum J98.2 Time Spent (min) 41
[2021-03-29] MEDS: NOREPINEPHRINE/D5W 8 MG/508 ML BAG IV SCH ×2 (07:54→13:26)
[2021-03-29] MEDS ORDERED: SODIUM PHOSPHATE 15 MMOL in SODIUM CHLORIDE 0.9% 250 ML IV ONE (08:00)
--- NOTE | 2021-03-29 08:55 | XRay Report ---
SINGLE VIEW CHEST CLINICAL HISTORY: Covid pneumonia. Respiratory failure. FINDINGS: 2 AP, portable, upright chest radiographs are compared to study dated 03/28/2021. The examin ation is degraded by portable technique and patient rotation. An endotracheal tube, an enteric tube, and a right subclavian central venous catheter are unchanged in position. The heart is enlarged. Conf luent multifocal airspace consolidation is again seen throughout both lungs. No large pleural effusio n or pneumothorax is identified. The bony thorax is grossly intact. There is increasing subcutaneous emphysema in the lower neck. IMPRESSION: 1. Stable lines and tubes. 2. Multifocal airspace consolidation has not significantly changed from yesterday. ACT 112: Negative or not required by law. Electronically signed by: Talat Lea M.D. 03/29/2021 8:54 AM
[2021-03-29] MEDS ORDERED: dexAMETHasone 20 MG in SYRINGE 0 ML IV SCH (09:00)
[2021-03-29] MEDS ORDERED: STAT IV Infusion **Titration per Protocol STA (09:29)
[2021-03-29] MEDS ORDERED: MIDAZOLAM HCL 125 MG/250 ML BAG IV SCH (09:30)
[2021-03-29 11:33] LABS: iSTAT Arterial Blood Gas HCO3 24 meg/L (19-24); iSTAT Arterial Blood Gas pCO2 46 mmHg (35-46); iSTAT Arterial Blood Gas pH 7.33 (7.35-7.45); iSTAT Arterial Blood Gas pO2 60 mmHg (80-95); iSTAT Carbon Dioxide 26 mmol/L (24-31); iSTAT Site Art Line
[2021-03-29] MEDS ORDERED: FUROSEMIDE 20 MG in SYRINGE 0 ML IV ONE (12:43)
[2021-03-29] MEDS ORDERED: FUROSEMIDE 40 MG/4 ML VIAL IV ONE (13:00)
[2021-03-29] MEDS: PEPTAMEN INTENSE VHP 1.0 CAL 1,000 ML BAG GT SCH (13:49)
--- NOTE | 2021-03-29 14:48 | Hospitalist Progress Note ---
Date of Service March 29, 2021 Assessment & Plan (1) Acute respiratory failure with hypoxia: Plan: due to COVID 19 pneumonia, bilateral infiltrates on CXR Was requiring prone positioning and BiPAP while awake, but then weaned down to wall high flow nasal cannula at 11-15 L on 03/23 However, on 03/24 worsened again was placed back on Vapotherm high flow nasal cannula On 03/25, requiring higher amounts of oxygen at 40 L and up to 80 % FiO2 to maintain pulse ox 90-91% On 03/26 switched to Ventilator HFNC at 60L, 100% FiO2 to keep POx>88%---> continued to decompensate on the morning of 03/27 and was intubated and proned Pneumomediastinum is now resolved on x-ray Status post tocilizumab on 03/21 CRP trending downward Appreciate pulmonology consultation Chest x-ray on 03/24 stable from previous, continues with pneumomediastinum but no pneumothorax Chest x-ray on 03/25 with improved pneumomediastinum, no pneumothorax, unchanged bilateral significant infiltrates CXR 03/26 and 03/27, 03/28 similar with multifocal bilateral airspace opacities Continue dexamethasone however on 03/28 was increased to high-dose with 20 mg daily, plan for 5 days then 10mg for 5 days IV Lasix as needed to keep in a negative fluid balance Ventilator management as per fur trimmer Guest Experience Representative contacted [facility] about ECMO-no beds available on 03/28. Kate said that he is not a candidate for ECMO at their facility as age greater than 55 and was on high flow nasal cannula for greater than 3 days paralyzed and prone on 03/29, ICU managing guarded prognosis (2) Pneumonia due to COVID-19 virus: Plan: Symptom onset: approximately March 09, says he just got dyspnea and cough a few days prior to admission-became really short of breath on 03/20 so he came to the ED bilateral infiltrates on CXR, CRP 18 and then decreased after receiving Tocilizumab and dexamethasone Continue dexamethasone as above-now day 10 overall but on high- 20mg IV daily dose Completed 5-day course of Rocephin/Zithromax too far along in course of illness to give Remdesivir, no benefit Received Tocilizumab on 03/21 - ECG to follow QT while on azithromycin-QTc 453 on 03/23 CTA chest: no pulmonary embolism, just shows diffuse infiltrates initially CXR as above Follow CXR Appreciate PULM input (3) Pneumomediastinum: Plan: Now resolved (4) ROSARIO (acute kidney injury): Plan: - Baseline creatinine less than 1, acutely elevated to 1.61 on admission and now back to normal Received 2 L NSS while in ER. - no further fluid, actually gave Lasix 40mg IV daily as needed (5) Bradycardia: Plan: with sinus terry during daytime in 40s, drops to 30s at night at times with sinus pauses up to 3.6 sec while not wearing BiPAP and has known AKIL on the night that he had the pneumomediastinum develop Now rates are normal to tachycardic follow on tele not on meds that would cause AV node blockade not symptomatic, no high grade blocks (6) Transaminitis: Plan: AST and ALT were improving, but now worsening again with mild elevated total bilirubin and elevated lipase today Likely secondary to Covid infection versus medication side effect? He had no complaints of abdominal pain prior to being intubated-do not suspect cholecystitis or pancreatitis Continue to follow LFTs 2/2 COVID (7) Hypokalemia: Plan: Resolved with potassium replacement Now with hyperkalemia on 03/28 Treated with calcium gluconate and Kayexalate Follow BMP (8) Uvular hypertrophy: Plan: Uses CPAP as an outpatient, follows with ENT (9) BPH loc w urin obs/LUTS: Plan: Rogers catheter back in place after intubation (10) Epistaxis: Plan: held Lovenox on 03/26 nasal saline phenylephrine nasal spray prn Restarted Lovenox once intubated (11) Elevated lipase: Plan: As above (12) Hypotension: Plan: Now on Levophed Likely secondary to sedation Plan: DVT prophylaxis: High-dose Lovenox, SCDs Disposition: Continued stay in ICU, very guarded prognosis CODE STATUS: Guest Experience Representative discussed care with on 03/28-was made a DNR and she is aware of his very guarded prognosis Admission and Anticipated Discharge Date Admission Date: March 20, 2021 Subjective attempted to remove paralytics this morning, patient was not cooperative with ventilator he was paralyzed again and turned prone this afternoon FiO2 down to 50% with prone position reviewed chart, past events this week with worsening respiratory status on Vapotherm and need for intubation reviewed labs appreciate ICU management of this patient Review of Systems Review of Systems: Unobtainable due to endotracheal tube (sedated, paralyzed, prone) Physical Exam Constitutional: well developed, + ill appearing and + obese Neck: trachea midline, no thyromegaly Respiratory: normal respiratory effort and symmetric chest movement (ventilated, prone position); not tachypneic Auscultation: no crackles, no rales, no rhonchi and no wheezes Cardiovascular: RRR, no murmur, no edema Gastrointestinal (Abdomen): normal bowel sounds, soft, nontender, no hepatosplenomegaly Musculoskeletal: no cyanosis or clubbing, extremities motor strength 5/5 Skin: no rashes, warm and dry Neurologic: normal touch/pain/proprioception, CN's II-XI intact bilaterally, moves all extremities and awake; no focal motor deficits Psychiatric: A+Ox3, euthymic affect Results & Data Results & Data ([facility]) Vital Signs (Past 12 Hours) Vital Signs Temp Pulse Resp BP Pulse Ox 03/29/21 11:05 78 28 H 89 L 03/29/21 09:11 37.7 C H 73 114/73 91 03/29/21 08:41 37.6 C H 71 112/74 91 03/29/21 08:14 88 30 H 91 03/29/21 08:11 37.6 C H 78 117/75 90 03/29/21 07:30 37.5 C 73 94 03/29/21 07:11 37.5 C 70 109/75 93 03/29/21 06:56 37.5 C 66 117/81 93 03/29/21 04:19 68 30 H 92 Laboratory Results Laboratory Results - last 24 hr 03/28/21 03/29/21 03/29/21 17:45 04:18 04:18 WBC 16.61 H RBC 4.96 Hgb 15.1 Hct 45.0 MCV 90.7 MCH 30.4 MCHC 33.6 RDW Std Deviation 44.0 RDW Coeff of Sujit 13.3 Plt Count 267 MPV 10.4 Immature Gran % (Auto) 0.5 Neut % (Auto) 92.4 Lymph % (Auto) 5.4 [place] % (Auto) 1.6 Eos % (Auto) 0.0 Baso % (Auto) 0.1 Neut # (Auto) 15.35 H Lymph # (Auto) 0.90 L [place] # (Auto) 0.26 Eos # (Auto) 0.00 Baso # (Auto) 0.01 Immature Gran # (Auto) 0.09 H Sample Site POC pH POC pCO2 POC pO2 POC HCO3 POC Total CO2 POC Base Excess POC ABG O2 Sat Sher Test O2 Delivery Device POC O2 Rate Minute Ventilation Tidal Volume PEEP Sodium 142 139 Potassium 5.6 H 4.8 Chloride 110 H 113 H Carbon Dioxide 24 25 Anion Gap 8.0 1.0 L BUN 28 H 34 H Creatinine 1.06 1.27 Est Cr Clr Drug Dosing 91.4 76.3 Est GFR ( Amer) 88.0 70.7 Est GFR (Non-Af Amer) 75.9 61.0 BUN/Creatinine Ratio 26.0 H 26.6 H Glucose 282 H 248 H Calcium 8.7 8.3 L Phosphorus 2.0 L D Magnesium 2.6 H 03/29/21 03/29/21 04:24 11:17 WBC RBC Hgb Hct MCV MCH MCHC RDW Std Deviation RDW Coeff of Sujit Plt Count MPV Immature Gran % (Auto) Neut % (Auto) Lymph % (Auto) [place] % (Auto) Eos % (Auto) Baso % (Auto) Neut # (Auto) Lymph # (Auto) [place] # (Auto) Eos # (Auto) Baso # (Auto) Immature Gran # (Auto) Sample Site Art Line Art Line POC pH 7.34 L 7.33 L POC pCO2 45 46 POC pO2 65 L 60 L POC HCO3 25 H 24 POC Total CO2 26 26 POC Base Excess -1.0 -2.0 POC ABG O2 Sat 91.0 88.0 L Sher Test NA NA O2 Delivery Device Ventilator Ventilator POC O2 Rate 30 30 Minute Ventilation 13.5 Tidal Volume 450 450 PEEP 12 10 Sodium Potassium Chloride Carbon Dioxide Anion Gap BUN Creatinine Est Cr Clr Drug Dosing Est GFR ( Amer) Est GFR (Non-Af Amer) BUN/Creatinine Ratio Glucose Calcium Phosphorus Magnesium Medications Administered Current Inpatient Medications Acetaminophen (Acetaminophen 325 Mg Tab) 650 mg PO Q4H PRN PRN Reason: Pain or Fever Stop: 04/19/21 16:45 Last Admin: 03/26/21 22:08 Dose: 650 mg Documented by: Albuterol (Albut/Ipratrop 3mg/0.5mg Neb 3 Ml Vial) 3 ml NEB Q4R PRN PRN Reason: Shortness of Breath/Wheezing Stop: 04/19/21 16:45 Enoxaparin Sodium (Enoxaparin Inj 60 Mg/0.6 Ml Syr) 60 mg SQ Q12H [facility] Stop: 04/19/21 16:59 Last Admin: 03/29/21 07:16 Dose: 60 mg Documented by: Fentanyl Citrate (Fentanyl Bolus From Bag) 50 mcg IV Q60M PRN PRN Reason: Pain or Agitation Stop: 04/10/21 10:05 Last Admin: 03/27/21 21:00 Dose: 50 mcg Documented by: Cisatracurium Besylate 40 mg/ (Sodium Chloride) 100 mls @ 19.163 mls/hr IV .Q5H14M MARCIA; Protocol Stop: 04/26/21 08:59 Last Admin: 03/29/21 13:52 Dose: 1.75 mcg/kg/min, 19.2 mls/hr Documented by: Fentanyl Citrate (Fentanyl Drip) 1,250 mcg in 250 mls @ 50 mls/hr IV .Q5H MARCIA; Protocol Stop: 04/10/21 10:05 Last Admin: 03/29/21 14:40 Dose: 250 mcg/hr, 50 mls/hr Documented by: Propofol (Diprivan) 1,000 mg in 100 mls @ 26.064 mls/hr IV .Q3H51M MARCIA; Protocol Stop: 03/31/21 08:14 Last Titration: 03/29/21 14:40 Dose: 40 mcg/kg/min, 26.1 mls/hr Documented by: Norepinephrine Bitartrate (Levophed/D5w) 8 mg in 508 mls @ 0 mls/hr IV .Q0M [facility]; Protocol Stop: 04/27/21 11:44 Last Admin: 03/29/21 13:26 Dose: Not Given Documented by: Dexamethasone 10 mg/ Syringe 2.5 mls @ 1 mls/min IV DAILY [facility] Stop: 04/06/21 09:03 Dexamethasone 20 mg/ Dextrose 30 mls @ 0.833 mls/min IV DAILY [facility] Stop: 04/01/21 09:35 Last Infusion: 03/29/21 07:52 Dose: Infused Documented by: Midazolam HCl (Versed) 125 mg in 250 mls @ 0 mls/hr IV .Q0M MARCIA; Protocol Stop: 04/28/21 09:29 Last Titration: 03/29/21 12:47 Dose: 0 mg/hr, 0 mls/hr Documented by: Insulin Aspart (Insulin Aspart 100 Units/Ml 3 Ml Pen) 0 units SC Q4 M[facility]IA Stop: 04/28/21 12:14 Lansoprazole (Lansoprazole 30 Mg Soltab) 30 mg OG BID MARCIA Stop: 04/27/21 20:59 Last Admin: 03/29/21 07:17 Dose: 30 mg Documented by: Midazolam HCl (Midazolam Bolus From Bag) 2 mg IV Q60M PRN PRN Reason: Sedation Stop: 04/28/21 09:28 Multi-Ingredient Cream (Artificial Tears Op Oint 3.5 Gm Tube) 1 appln OP Q4H [facility] Stop: 04/26/21 08:59 Last Admin: 03/29/21 11:52 Dose: 1 appln Documented by: Nutritional Formula (Peptamen Intense Vhp 1.0 Darrian 1,000 Ml Bag) 1,000 ml GT DAILY@1200 MARCIA; Protocol Stop: 04/26/21 14:32 Last Admin: 03/29/21 13:49 Dose: 1,000 ml Documented by: Propofol (Propofol Bolus From Bag) 20 mg IV Q5M PRN PRN Reason: Sedation Stop: 03/31/21 08:02 Sterile Water (Tube Feeding Water Flush) 30 ml GT Q4H [facility]IA Stop: 04/27/21 13:59 Last Admin: 03/29/21 13:51 Dose: 30 ml Documented by: PG Care Time/CCT Total # of Minutes Spent Total Time Spent with Patient: Total time spent is greater than 50% in coordination of care (as documented) at patient's floor/unit and/or counseling patient: Coding Level of Care Code 74431 Subseq Hosp Care Lvl 2 Diagnoses Acute respiratory failure with hypoxia J96.01 Pneumonia due to COVID-19 virus U07.1; J12.82 Pneumomediastinum J98.2 ROSARIO (acute kidney injury) N17.9 Bradycardia R00.1 Transaminitis R74.01 Hypokalemia E87.6 Uvular hypertrophy K13.79 BPH loc w urin obs/LUTS N40.1 Epistaxis R04.0 Elevated lipase R74.8 Hypotension I95.9
[2021-03-29] MEDS: INSULIN ASPART 100 UNITS/ML 3 ML PEN SC SCH ×4 (15:56→20:22)
[2021-03-29 20:08] LABS: BUN Creatinine Ratio 31.5 (10-20); Calcium 7.9 mg/dl (8.5-10.1); Creatinine Clr Calc Pharmacy 74.2 ml/min; Est GFR (African American) 68.7 ml/min; Est GFR (Non-African American) 59.3 ml/min; Magnesium 2.3 mg/dl (1.8-2.4); Potassium 4.5 mmol/L (3.5-5.1)
[2021-03-29 20:31] LABS: Phosphorus 3.6 mg/dl (2.5-4.9)
[2021-03-30] MEDS: INSULIN ASPART 100 UNITS/ML 3 ML PEN SC SCH ×6 (00:22→21:38)
[2021-03-30] MEDS: ARTIFICIAL TEARS OP OINT 3.5 GM TUBE OP SCH ×6 (00:23→20:37)
[2021-03-30] MEDS: CISATRACURIUM BESYLATE 40 MG in 0.9 % SODIUM CHLORIDE 80 ML IV SCH ×6 (00:23→21:55)
[2021-03-30] MEDS: fentaNYL DRIP 1,250 MCG/250 ML BAG IV SCH ×5 (01:20→20:38)
[2021-03-30] MEDS: TUBE FEEDING WATER FLUSH GT SCH ×6 (03:31→21:47)
[2021-03-30] MEDS: propofoL 1,000 MG/100 ML VIAL IV SCH ×12 (03:58→23:33)
[2021-03-30 04:52] LABS: Basophils # (auto) 0.01 K/uL (0-0.2); Basophils % (auto) 0.1 %; Eosinophils # (auto) 0.06 K/uL (0-0.5); Eosinophils % (auto) 0.4 %; Hematocrit (blood only) 39.2 % (42-52); Hemoglobin 13.2 g/dL (14.0-18.0); Immature Granulocytes # (auto) 0.04 K/uL (0.00-0.02); Immature Granulocytes % (auto) 0.3 %; Lymphocytes # (auto) 1.09 K/uL (1.2-3.4); Lymphocytes % (auto) 7.9 %; Mean Corpuscular Hemoglobin 30.6 pg (25-34); Mean Corpuscular Hgb Conc 33.7 g/dL (32-36); Mean Corpuscular Volume 90.7 fL (80-100); Mean Platelet Volume 9.6 fL (7.4-10.4); Monocytes # (auto) 0.57 K/uL (0.11-0.59); Monocytes % (auto) 4.1 %; Neutrophils # (auto) 12.01 K/uL (1.4-6.5); Neutrophils % (auto) 87.2 %; Platelet Count 196 K/uL (130-400); RDW Coefficient of Variation 13.2 % (11.5-14.5); RDW Standard Deviation 43.8 fL (36.4-46.3); Red Blood Count 4.32 M/uL (4.7-6.1); White Blood Count 13.78 K/uL (4.8-10.8)
[2021-03-30 05:04] LABS: HCO3 ABG 26 mmol/L (19-24); Oxygen Saturation ABG 93.2 % (90-95); PCO2 ABG 43 mmHg (35-46); PO2 ABG 65 mmHg (80-95)
[2021-03-30 05:06] LABS: Allen Test Pos (Pos)
[2021-03-30 05:11] LABS: BUN Creatinine Ratio 34.9 (10-20); Calcium 7.7 mg/dl (8.5-10.1); Creatinine Clr Calc Pharmacy 74.8 ml/min; Est GFR (African American) 69.4 ml/min; Est GFR (Non-African American) 59.9 ml/min; Magnesium 2.5 mg/dl (1.8-2.4)
[2021-03-30 05:12] LABS: Phosphorus 3.7 mg/dl (2.5-4.9)
[2021-03-30] MEDS ORDERED: FUROSEMIDE 40 MG in SYRINGE 0 ML IV ONE (07:45)
--- NOTE | 2021-03-30 07:50 | Critical Care Progress Note ---
Date of Service March 30, 2021 Assessment & Plan (1) Acute respiratory failure with hypoxia: (2) Pneumonia due to COVID-19 virus: (3) Transaminitis: (4) Pneumomediastinum: Plan: Reason Critically Ill: 61-year-old male with past medical history of hypertension admitted to the hospital for COVID-19 pneumonia and acute hypoxic respiratory failure, intubated 03/27/2021 PLAN: Neuro: Neuromuscular blockade with cisatracurium --day 3 -Bis monitoring Propofol infusion and fentanyl infusions -Midazolam added 03/29/2021 when paralytics were taken off Resp: --VDRF with acute hypoxic respiratory failure Secondary to multilobar COVID-19 pneumonia COVID-19 PCR positive 03/16/2021 CRP 18.2 --> 9.75 --> 1.63 S/p Tocilizumab 03/21/2021 Intubated 03/27/2021 Continue with lung protective ventilation High PEEP, low tidal volume to keep Plateau < 30 with permissive hypercapnea if need be. Monitor ABGs ARDS net high-dose steroid protocol Kate as well as [facility]O team where contacted on 03/28/2021, unfortunately he is not a candidate from either side. --Pneumomediastinum No signs of pneumothorax on the chest x-ray CV: Shock likely sec to sedation plus covid 19 c/w vasopressor to keep MAP >65 Fluids/Renal: Goal to remain net negative -Diuresis as needed ID: no signs of super infection right now GI/Nutrition: Transaminitis -Continue to follow c/w trickle tube feeds Heme: Leukocytosis Likely from steroids Continue to monitor Endocrine: ICU hyperglycemia protocol --Prophylaxis VTE: Lovenox GI: Lansoprazole Lines: Left radial, right subclavian, positive Rogers Diet: Trickle tube feeds Plan: In/out: +1.6 L, urine output 1550 Patient was saturating initially 91% on 45%, PEEP of 12 but when he started to be synchronized with the vent his oxygen saturation went down. Goal would be to go down on the PEEP now without touching the FiO2. Chest x-ray from today shows no significant change compared to yesterday. Bilateral alveolar opacities persist 40 mg of Lasix given today Given the significant requirement of sedation for the patient. I am going to start the patient on methadone. His QTC was 452. We will repeat EKG in the morning to monitor QTC No need to prone as FiO2 is only 45%. Gradually titrate down the PEEP now. Patient was hypertensive today. His amlodipine has been restarted. Continue with as needed hydralazine Patient's Mrs. Emperatriz Neri [phone] I have personally spent 45 minutes of critical care time in the direct management of this patient. This is a life/limb threatening event. This includes time spent evaluating patient, direct bedside care, chart review, placing orders, interpretation of diagnostic studies, discussion with consultants, patient, and family members, as well as other required patient management activities. This time is exclusive of all separately billable procedures, and teaching time and separate from and in addition to any other critical care service time. Please note the above document was generated using voice recognition software. It may contain grammatical, syntax or spelling errors. Admission and Anticipated Discharge Date Admission Date: March 20, 2021 Subjective Patient seen and examined at bedside. No acute distress. Patient was on propofol 50, fentanyl to 50. Patient was just taken off the Nimbex and he started to again be very asynchronous with the vent. Midazolam was again started bolus followed by 8 mg drip but he was still fighting the vent. He started to desaturate plan was to restart paralytic agent. Has been on levophed Review of Systems Review of Systems: Unobtainable due to endotracheal tube Physical Exam Physical Exam: Constitutional: Intubated, sedated HEENT: PERRLA, positive ETT Respiratory system: Decreased air entry bilaterally, no wheeze, rhonchi, positive crackles bilateral lower lobes CVS: S1-S2 positive, no murmurs or gallops Abdomen: Soft, nontender, nondistended, positive bowel sounds x4, obese Extremities: +2 pulses bilaterally radialis/ dorsalis pedis, no cyanosis, +1 pitting edema Neuro: RASS -1, breathing over the vent, positive corneal, positive gag Psych: Unable to assess G/U: Positive Rogers Skin: no rashes, warm and dry Lymphatic: no cervical or axillary lymphadenopathy Results & Data Results & Data ([facility]) Vital Signs (Past 12 Hours) Vital Signs Temp Pulse Resp BP Pulse Ox 03/30/21 07:30 62 25 H 93 03/30/21 02:51 24 03/30/21 01:56 37.2 C 63 110/66 93 03/30/21 00:56 37.3 C 67 102/65 92 03/29/21 23:56 37.2 C 66 112/67 93 03/29/21 23:13 24 03/29/21 22:56 37.3 C 72 112/66 91 03/29/21 21:56 67 111/66 91 03/29/21 20:56 68 108/65 90 03/29/21 19:55 84 24 90 03/30/21 04:40 03/30/21 04:40 Coding Level of Care Code Critical Care 1st 30-74 mins Diagnoses Acute respiratory failure with hypoxia J96.01 Pneumonia due to COVID-19 virus U07.1; J12.82 Transaminitis R74.01 Pneumomediastinum J98.2 Time Spent (min) 45
[2021-03-30] MEDS: dexAMETHasone 20 MG in DEXTROSE 5% 25 ML IV SCH (07:54)
[2021-03-30] MEDS: ENOXAPARIN INJ 60 MG/0.6 ML SYR SQ SCH ×2 (07:55→20:37)
[2021-03-30] MEDS: LANSOPRAZOLE 30 MG SOLTAB OG SCH ×2 (07:56→20:37)
--- NOTE | 2021-03-30 08:52 | XRay Report ---
XR chest 1V portable HISTORY: intubation COMPARISON: Chest 03/29/2021. FINDINGS: Endotracheal tube terminates 3.3 cm from the jaguar. Nasogastric tube terminates below the diaphragm. The tip is not included on this study. Right subclavian central venous catheter terminates in the distal SVC. No pneumothorax. The heart remains borderline enlarged. No change in the patchy b ilateral airspace opacities and interstitial thickening consistent with a pneumonia. IMPRESSION: 1. Satisfactory support line placement. 2. Multifocal airspace opacities are not significantly changed.. ACT 112: Negative or not required by law. Electronically signed by: Marco A Yee M.D. 03/30/2021 8:51 AM
[2021-03-30] MEDS ORDERED: STAT IV Infusion **Titration per Protocol STA ×2 (09:11→13:26)
[2021-03-30] MEDS: MIDAZOLAM HCL 125 MG/250 ML BAG IV SCH ×2 (09:15→22:09)
[2021-03-30] MEDS: amLODIPine BESYLATE 5 MG TAB PO SCH (10:22)
[2021-03-30] MEDS: METHADONE HCL 5 MG TAB PO SCH ×2 (10:22→21:49)
[2021-03-30] MEDS: PEPTAMEN INTENSE VHP 1.0 CAL 1,000 ML BAG GT SCH (10:23)
--- NOTE | 2021-03-30 12:58 | Hospitalist Progress Note ---
Date of Service March 30, 2021 Assessment & Plan (1) Acute respiratory failure with hypoxia: Plan: due to COVID 19 pneumonia, bilateral infiltrates on CXR Was requiring prone positioning and BiPAP while awake, but then weaned down to wall high flow nasal cannula at 11-15 L on 03/23 However, on 03/24 worsened again was placed back on Vapotherm high flow nasal cannula On 03/25, requiring higher amounts of oxygen at 40 L and up to 80 % FiO2 to maintain pulse ox 90-91% On 03/26 switched to Ventilator HFNC at 60L, 100% FiO2 to keep POx>88%---> continued to decompensate on the morning of 03/27 and was intubated and proned Pneumomediastinum is now resolved on x-ray Status post tocilizumab on 03/21 CRP trending downward Appreciate pulmonology consultation Chest x-ray on 03/24 stable from previous, continues with pneumomediastinum but no pneumothorax Chest x-ray on 03/25 with improved pneumomediastinum, no pneumothorax, unchanged bilateral significant infiltrates CXR 03/26 and 03/27, 03/28 similar with multifocal bilateral airspace opacities Continue dexamethasone however on 03/28 was increased to high-dose with 20 mg daily, plan for 5 days then 10mg for 5 days IV Lasix as needed to keep in a negative fluid balance Ventilator management as per [employer] Proc[employer]ment Professional contacted [facility] about ECMO-no beds available on 03/28. Kate said that he is not a candidate for ECMO at their facility as age greater than 55 and was on high flow nasal cannula for greater than 3 days still requiring high levels of sedation and needed paralyzed again today currently on Nimbex, Versed Fentanyl Methadone, Propofol (2) Pneumonia due to COVID-19 virus: Plan: Symptom onset: approximately March 09, says he just got dyspnea and cough a few days prior to admission-became really short of breath on 03/20 so he came to the ED bilateral infiltrates on CXR, CRP 18 and then decreased after receiving Tocilizumab and dexamethasone Continue dexamethasone as above-now day 10 overall but on high- 20mg IV daily dose Completed 5-day course of Rocephin/Zithromax too far along in course of illness to give Remdesivir, no benefit Received Tocilizumab on 03/21 - ECG to follow QT while on azithromycin-QTc 453 on 03/23 CTA chest: no pulmonary embolism, just shows diffuse infiltrates initially CXR still with bilateral infiltrates still requiring mechanical ventilation (3) Pneumomediastinum: Plan: Now resolved (4) ROSARIO (acute kidney injury): Plan: - Baseline creatinine less than 1, acutely elevated to 1.61 on admission and now back to normal Received 2 L NSS while in ER. - no further fluid, actually gave Lasix 40mg IV daily as needed (5) Bradycardia: Plan: with sinus terry during daytime in 40s, drops to 30s at night at times with sinus pauses up to 3.6 sec while not wearing BiPAP and has known AKIL on the night that he had the pneumomediastinum develop Now rates are normal to tachycardic follow on tele not on meds that would cause AV node blockade not symptomatic, no high grade blocks (6) Transaminitis: Plan: AST and ALT were improving, but now worsening again with mild elevated total bilirubin and elevated lipase today Likely secondary to Covid infection versus medication side effect? He had no complaints of abdominal pain prior to being intubated-do not suspect cholecystitis or pancreatitis Continue to follow LFTs / COVID (7) Hypokalemia: Plan: Resolved with potassium replacement Now with hyperkalemia on 03/28 Treated with calcium gluconate and Kayexalate Follow BMP (8) Uvular hypertrophy: Plan: Uses CPAP as an outpatient, follows with ENT (9) BPH loc w urin obs/LUTS: Plan: Rogers catheter back in place after intubation (10) Epistaxis: Plan: held Lovenox on 03/26 nasal saline phenylephrine nasal spray prn Restarted Lovenox once intubated (11) Elevated lipase: Plan: As above (12) Hypotension: Plan: Hypertensive today BP then dropped with sedation may need Levophed PRN Plan: DVT prophylaxis: High-dose Lovenox, SCDs Disposition: Continued stay in ICU, very guarded prognosis CODE STATUS: Procurement Professional discussed care with on 03/28-was made a DNR and she is aware of his very guarded prognosis Admission and Anticipated Discharge Date Admission Date: March 20, 2021 Subjective patient was very agitated, thrashing, non-compliant with the ventilator when sedation and paralytics removed this morning worse than yesterday Nimbex resumes, now on Versed, Fentanyl, Methadone blood pressure was very high, now low after sedation he is on PEEP 10 and FiO2 60% while supine reviewed labs discussed with Dr. Figueroa, appreciate his management of this patient Review of Systems Review of Systems: Unobtainable due to cognitive status and Unobtainable due to endotracheal tube Physical Exam Constitutional: well developed, + ill appearing, + obese and comfortable; no acute distress Neck: trachea midline, no thyromegaly Respiratory: symmetric chest movement (ventilated, supine position); no respiratory distress and no labored breathing Auscultation: no crackles, no rales, no rhonchi and no wheezes Cardiovascular: RRR, no murmur, no edema Gastrointestinal (Abdomen): normal bowel sounds, soft, nontender, no hepatosplenomegaly Musculoskeletal: Head/Neck/Chest: normocephalic, head atraumatic and neck supple Extremities: extremities normal to inspection; no cyanosis, no clubbing and no petechiae Skin: no rashes, warm and dry Neurologic: CN's II-XI intact bilaterally, moves all extremities and + obtunded; no focal motor deficits Psychiatric: Orientation: + not alert Results & Data Results & Data ([facility]) Vital Signs (Past 12 Hours) Vital Signs Temp Pulse Resp BP Pulse Ox Pulse Ox 03/30/21 11:56 37.4 C 91 H 83/66 L 91 03/30/21 11:06 94 H 25 H 90 03/30/21 10:56 37.4 C 101 H 115/80 88 L 03/30/21 10:00 93 03/30/21 09:56 37.4 C 112 H 120/84 88 L 03/30/21 08:29 37.0 C 117 H 136/87 91 03/30/21 07:56 37.1 C 86 173/96 H 93 03/30/21 07:30 62 25 H 93 03/30/21 02:51 24 03/30/21 01:56 37.2 C 63 110/66 93 03/30/21 00:56 37.3 C 67 102/65 92 Laboratory Results Laboratory Results - last 24 hr 03/29/21 03/29/21 03/29/21 15:48 19:21 20:15 WBC RBC Hgb Hct MCV MCH MCHC RDW Std Deviation RDW Coeff of Sujit Plt Count MPV Immature Gran % (Auto) Neut % (Auto) Lymph % (Auto) Gallia % (Auto) Eos % (Auto) Baso % (Auto) Neut # (Auto) Lymph # (Auto) [place] # (Auto) Eos # (Auto) Baso # (Auto) Immature Gran # (Auto) ABG pH ABG pCO2 ABG pO2 ABG HCO3 ABG O2 Saturation ABG Base Excess Sher Test Oxygen Given Sodium 143 Potassium 4.5 Chloride 113 H Carbon Dioxide 26 Anion Gap 4.0 BUN 41 H Creatinine 1.30 Est Cr Clr Drug Dosing 74.2 Est GFR ( Amer) 68.7 Est GFR (Non-Af Amer) 59.3 BUN/Creatinine Ratio 31.5 H Glucose 218 H POC Glucose 241 H 207 H Calcium 7.9 L Phosphorus 3.6 D Magnesium 2.3 Triglycerides 03/30/21 03/30/21 03/30/21 00:19 04:40 04:40 WBC 13.78 H RBC 4.32 L Hgb 13.2 L Hct 39.2 L MCV 90.7 MCH 30.6 MCHC 33.7 RDW Std Deviation 43.8 RDW Coeff of Sujit 13.2 Plt Count 196 MPV 9.6 Immature Gran % (Auto) 0.3 Neut % (Auto) 87.2 Lymph % (Auto) 7.9 Gallia % (Auto) 4.1 Eos % (Auto) 0.4 Baso % (Auto) 0.1 Neut # (Auto) 12.01 H Lymph # (Auto) 1.09 L [place] # (Auto) 0.57 Eos # (Auto) 0.06 Baso # (Auto) 0.01 Immature Gran # (Auto) 0.04 H ABG pH ABG pCO2 ABG pO2 ABG HCO3 ABG O2 Saturation ABG Base Excess Sher Test Oxygen Given Sodium 142 Potassium 4.0 Chloride 115 H Carbon Dioxide 27 Anion Gap 0 L BUN 45 H Creatinine 1.29 Est Cr Clr Drug Dosing 74.8 Est GFR ( Amer) 69.4 Est GFR (Non-Af Amer) 59.9 BUN/Creatinine Ratio 34.9 H Glucose 154 H POC Glucose 170 H Calcium 7.7 L Phosphorus 3.7 Magnesium 2.5 H Triglycerides 512 H 03/30/21 03/30/21 03/30/21 04:41 04:44 08:05 WBC RBC Hgb Hct MCV MCH MCHC RDW Std Deviation RDW Coeff of Sujit Plt Count MPV Immature Gran % (Auto) Neut % (Auto) Lymph % (Auto) Gallia % (Auto) Eos % (Auto) Baso % (Auto) Neut # (Auto) Lymph # (Auto) Gall[place] # (Auto) Eos # (Auto) Baso # (Auto) Immature Gran # (Auto) ABG pH 7.40 ABG pCO2 43 ABG pO2 65 L ABG HCO3 26 H ABG O2 Saturation 93.2 ABG Base Excess 1.0 Sher Test Pos Oxygen Given 40% FIO2 Sodium Potassium Chloride Carbon Dioxide Anion Gap BUN Creatinine Est Cr Clr Drug Dosing Est GFR ( Amer) Est GFR (Non-Af Amer) BUN/Creatinine Ratio Glucose POC Glucose 146 H 144 H Calcium Phosphorus Magnesium Triglycerides 03/30/21 12:08 WBC RBC Hgb Hct MCV MCH MCHC RDW Std Deviation RDW Coeff of Sujit Plt Count MPV Immature Gran % (Auto) Neut % (Auto) Lymph % (Auto) [place] % (Auto) Eos % (Auto) Baso % (Auto) Neut # (Auto) Lymph # (Auto) [place] # (Auto) Eos # (Auto) Baso # (Auto) Immature Gran # (Auto) ABG pH ABG pCO2 ABG pO2 ABG HCO3 ABG O2 Saturation ABG Base Excess Sher Test Oxygen Given Sodium Potassium Chloride Carbon Dioxide Anion Gap BUN Creatinine Est Cr Clr Drug Dosing Est GFR ( Amer) Est GFR (Non-Af Amer) BUN/Creatinine Ratio Glucose POC Glucose 292 H Calcium Phosphorus Magnesium Triglycerides Medications Administered Current Inpatient Medications Acetaminophen (Acetaminophen 325 Mg Tab) 650 mg PO Q4H PRN PRN Reason: Pain or Fever Stop: 04/19/21 16:45 Last Admin: 03/26/21 22:08 Dose: 650 mg Documented by: Albuterol (Albut/Ipratrop 3mg/0.5mg Neb 3 Ml Vial) 3 ml NEB Q4R PRN PRN Reason: Shortness of Breath/Wheezing Stop: 04/19/21 16:45 Amlodipine Besylate (Amlodipine Besylate 5 Mg Tab) 10 mg PO QAM MARC[facility] Stop: 04/29/21 08:59 Last Admin: 03/30/21 10:22 Dose: 10 mg Documented by: Enoxaparin Sodium (Enoxaparin Inj 60 Mg/0.6 Ml Syr) 60 mg SQ Q12H MARCIA Stop: 04/19/21 16:59 Last Admin: 03/30/21 07:55 Dose: 60 mg Documented by: Fentanyl Citrate (Fentanyl Bolus From Bag) 50 mcg IV Q60M PRN PRN Reason: Pain or Agitation Stop: 04/10/21 10:05 Last Admin: 03/27/21 21:00 Dose: 50 mcg Documented by: Hydralazine HCl (Hydralazine Hcl 20 Mg/Ml Vial) 10 mg IV Q6H PRN PRN Reason: SBP GREATER THAN 160 Stop: 04/29/21 07:43 Cisatracurium Besylate 40 mg/ (Sodium Chloride) 100 mls @ 10.95 mls/hr IV .Q9H8M MARCIA; Protocol Stop: 04/26/21 08:59 Last Titration: 03/30/21 12:19 Dose: 1 mcg/kg/min, 11 mls/hr Documented by: Fentanyl Citrate (Fentanyl Drip) 1,250 mcg in 250 mls @ 50 mls/hr IV .Q5H MARCIA; Protocol Stop: 04/10/21 10:05 Last Admin: 03/30/21 10:23 Dose: 250 mcg/hr, 50 mls/hr Documented by: Propofol (Diprivan) 1,000 mg in 100 mls @ 26.064 mls/hr IV .Q3H51M MARCIA; Protocol Stop: 03/31/21 08:14 Last Titration: 03/30/21 12:13 Dose: 40 mcg/kg/min, 26.1 mls/hr Documented by: Dexamethasone 10 mg/ Syringe 2.5 mls @ 1 mls/min IV DAILY MARCIA Stop: 04/06/21 09:03 Dexamethasone 20 mg/ Dextrose 30 mls @ 0.833 mls/min IV DAILY MARCIA Stop: 04/01/21 09:35 Last Infusion: 03/30/21 08:37 Dose: Infused Documented by: Midazolam HCl (Versed) 125 mg in 250 mls @ 12 mls/hr IV .[id number] MARCIA; Protocol Stop: 04/29/21 09:14 Last Titration: 03/30/21 12:14 Dose: 6 mg/hr, 12 mls/hr Documented by: Insulin Aspart (Insulin Aspart 100 Units/Ml 3 Ml Pen) 0 units SC Q4 MARCIA Stop: 04/28/21 12:14 Last Admin: 03/30/21 12:11 Dose: 8 units Documented by: Lansoprazole (Lansoprazole 30 Mg Soltab) 30 mg OG BID [facility] Stop: 04/27/21 20:59 Last Admin: 03/30/21 07:56 Dose: 30 mg Documented by: Methadone HCl (Methadone Hcl 5 Mg Tab) 5 mg PO Q12H [facility] Stop: 04/13/21 09:59 Last Admin: 03/30/21 10:22 Dose: 5 mg Documented by: Midazolam HCl (Midazolam Bolus From Bag) 2 mg IV Q60M PRN PRN Reason: Sedation Stop: 04/28/21 09:28 Multi-Ingredient Cream (Artificial Tears Op Oint 3.5 Gm Tube) 1 appln OP Q4H [facility] Stop: 04/26/21 08:59 Last Admin: 03/30/21 12:11 Dose: 1 appln Documented by: Nutritional Formula (Peptamen Intense Vhp 1.0 Darrian 1,000 Ml Bag) 1,000 ml GT DAILY@1200 MARCIA; Protocol Stop: 04/26/21 14:32 Last Admin: 03/30/21 10:23 Dose: 1,000 ml Documented by: Propofol (Propofol Bolus From Bag) 20 mg IV Q5M PRN PRN Reason: Sedation Stop: 03/31/21 08:02 Sterile Water (Tube Feeding Water Flush) 30 ml GT Q4H [facility] Stop: 04/27/21 13:59 Last Admin: 03/30/21 10:23 Dose: 30 ml Documented by: PG Care Time/CCT Total # of Minutes Spent Total Time Spent with Patient: Total time spent is greater than 50% in coordination of care (as documented) at patient's floor/unit and/or counseling patient: Coding Level of Care Code 67237 Subseq Hosp Care Lvl 2 Diagnoses Acute respiratory failure with hypoxia J96.01 Pneumonia due to COVID-19 virus U07.1; J12.82 Pneumomediastinum J98.2 ROSARIO (acute kidney injury) N17.9 Bradycardia R00.1 Transaminitis R74.01 Hypokalemia E87.6 Uvular hypertrophy K13.79 BPH loc w urin obs/LUTS N40.1 Epistaxis R04.0 Elevated lipase R74.8 Hypotension I95.9
[2021-03-30] MEDS: NOREPINEPHRINE/D5W 8 MG/508 ML BAG IV SCH (14:15)
[2021-03-31] MEDS: INSULIN ASPART 100 UNITS/ML 3 ML PEN SC SCH ×6 (00:47→20:57)
[2021-03-31] MEDS: ARTIFICIAL TEARS OP OINT 3.5 GM TUBE OP SCH ×9 (01:03→21:10)
[2021-03-31] MEDS: propofoL 1,000 MG/100 ML VIAL IV SCH ×8 (01:39→21:10)
[2021-03-31] MEDS: TUBE FEEDING WATER FLUSH GT SCH ×6 (02:02→21:12)
[2021-03-31] MEDS: CISATRACURIUM BESYLATE 40 MG in 0.9 % SODIUM CHLORIDE 80 ML IV SCH ×3 (03:08→10:51)
[2021-03-31 04:45] LABS: iSTAT Art Bld Gas pCO2 Correct 41 mmHg (35-46); iSTAT Art Bld Gas pH Corrected 7.399 (7.35-7.45); iSTAT Arterial Blood Gas HCO3 25 meg/L (19-24); iSTAT Arterial Blood Gas pCO2 41 mmHg (35-46); iSTAT Arterial Blood Gas pO2 64 mmHg (80-95); iSTAT Arterial Blood Gas pO2 C 63; iSTAT Carbon Dioxide 26 mmol/L (24-31); iSTAT Hematocrit 34 % (42-52); iSTAT Hemoglobin 11.6 g/dl (14.0-18.0); iSTAT Potassium 3.4 mmol/L (3.3-5.0); iSTAT Site L Radial; iSTAT Sodium 139 mmol/L (135-144)
[2021-03-31 05:33] LABS: Basophils # (auto) 0.01 K/uL (0-0.2); Basophils % (auto) 0.1 %; Eosinophils # (auto) 0.05 K/uL (0-0.5); Eosinophils % (auto) 0.3 %; Hematocrit (blood only) 37.4 % (42-52); Hemoglobin 12.9 g/dL (14.0-18.0); Immature Granulocytes # (auto) 0.11 K/uL (0.00-0.02); Immature Granulocytes % (auto) 0.6 %; Lymphocytes % (auto) 3.9 %; Mean Corpuscular Hemoglobin 30.4 pg (25-34); Mean Corpuscular Hgb Conc 34.5 g/dL (32-36); Mean Corpuscular Volume 88.2 fL (80-100); Mean Platelet Volume 10.2 fL (7.4-10.4); Monocytes # (auto) 1.35 K/uL (0.11-0.59); Monocytes % (auto) 7.5 %; Neutrophils # (auto) 15.78 K/uL (1.4-6.5); Neutrophils % (auto) 87.6 %; Platelet Count 211 K/uL (130-400); RDW Coefficient of Variation 13.3 % (11.5-14.5); RDW Standard Deviation 42.7 fL (36.4-46.3); Red Blood Count 4.24 M/uL (4.7-6.1)
[2021-03-31 06:16] LABS: BUN Creatinine Ratio 38.7 (10-20); Calcium 7.8 mg/dl (8.5-10.1); Creatinine Clr Calc Pharmacy 84.8 ml/min; Est GFR (African American) 80.6 ml/min; Est GFR (Non-African American) 69.5 ml/min; Magnesium 2.6 mg/dl (1.8-2.4); Phosphorus 3.5 mg/dl (2.5-4.9); Potassium 3.4 mmol/L (3.5-5.1)
[2021-03-31] MEDS: fentaNYL DRIP 1,250 MCG/250 ML BAG IV SCH ×5 (08:16→19:37)
[2021-03-31] MEDS: POTASSIUM CHLORIDE / WTR 20 MEQ/100 ML PLCT IV SCH ×3 (08:17→12:59)
[2021-03-31] MEDS: amLODIPine BESYLATE 5 MG TAB PO SCH (08:20)
[2021-03-31] MEDS: ENOXAPARIN INJ 60 MG/0.6 ML SYR SQ SCH ×2 (08:21→19:32)
[2021-03-31] MEDS: LANSOPRAZOLE 30 MG SOLTAB OG SCH ×2 (08:22→21:11)
[2021-03-31] MEDS: dexAMETHasone 20 MG in DEXTROSE 5% 25 ML IV SCH (08:24)
[2021-03-31] MEDS ORDERED: FUROSEMIDE 40 MG in SYRINGE 0 ML IV ONE (08:30)
[2021-03-31] MEDS: MIDAZOLAM BOLUS FROM BAG IV PRN (09:30)
[2021-03-31] MEDS ORDERED: STAT IV Infusion **Titration per Protocol STA ×2 (09:41→10:37)
[2021-03-31] MEDS: METHADONE HCL 5 MG TAB PO SCH ×2 (10:33→21:12)
[2021-03-31] MEDS ORDERED: VECURONIUM BROMIDE 10 MG VIAL IV ONE (10:39)
[2021-03-31] MEDS ORDERED: VECURONIUM BROMIDE 10 MG VIAL IV SCH (10:45)
[2021-03-31] MEDS ORDERED: VECURONIUM BROMIDE 10 MG in 0.9 % SODIUM CHLORIDE 100 ML IV SCH (10:45)
--- NOTE | 2021-03-31 10:53 | XRay Report ---
XR chest 1V portable CLINICAL HISTORY: COVID, intubated COMPARISON STUDY: Chest radiograph March 30, 2021. FINDINGS: Tip of endotracheal tube is 1.6 cm above the jaguar. Tip of the nasogastric tube is within the gastric antrum. Right subclavian central line remains in place. There is no pneumothorax. Extensi ve bilateral airspace opacities are similar to prior exam. Cardiomediastinal silhouette is stable. IMPRESSION: 1. Satisfactory positioning of lines and tubes. 2. No significant change in extensive bilateral airspace opacities. ACT 112: Negative or not required by law. Electronically signed by: Floyd Neal M.D. 03/31/2021 10:52 AM
[2021-03-31] MEDS ORDERED: VECURONIUM BROMIDE 10 MG VIAL IV STA ×2 (11:05→11:07)
--- NOTE | 2021-03-31 12:03 | Critical Care Progress Note ---
Date of Service March 31, 2021 Assessment & Plan (1) Acute respiratory failure with hypoxia: (2) Pneumonia due to COVID-19 virus: (3) Transaminitis: (4) Pneumomediastinum: Plan: Reason Critically Ill: 61-year-old male with past medical history of hypertension admitted to the hospital for COVID-19 pneumonia and acute hypoxic respiratory failure, intubated 03/27/2021 PLAN: Neuro: Neuromuscular blockade with cisatracurium --day 4 -Bis monitoring Propofol infusion and fentanyl infusions -Midazolam added 03/29/2021 as patient was very restless Resp: --VDRF with acute hypoxic respiratory failure Secondary to multilobar COVID-19 pneumonia COVID-19 PCR positive 03/16/2021 CRP 18.2 --> 9.75 --> 1.63 S/p Tocilizumab 03/21/2021 Intubated 03/27/2021 Continue with lung protective ventilation High PEEP, low tidal volume to keep Plateau < 30 with permissive hypercapnea if need be. Monitor ABGs ARDS net high-dose steroid protocol Kate as well as [place] ECMO team where contacted on 03/28/2021, unfortunately he is not a candidate from either side. --Pneumomediastinum No signs of pneumothorax on the chest x-ray CV: Intermittent hypotension likely sec to sedation c/w vasopressor as needed to keep MAP>65 Fluids/Renal: Goal to remain net negative -Diuresis as needed ID: no signs of super infection right now GI/Nutrition: Transaminitis -Continue to follow c/w trickle tube feeds Heme: Leukocytosis Likely from steroids Continue to monitor Endocrine: ICU hyperglycemia protocol --Prophylaxis VTE: Lovenox GI: Lansoprazole Lines: Left radial, right subclavian, positive Rogers Diet: Trickle tube feeds Plan: In/out: + 1.2 L, urine output 1750 ABG 7.4 /41/64 on 50%, PEEP of 10 I went down on the respiratory to 20. I changed the went to volume control from PRVC Again we try to take the Nimbex off but as soon as we take the Nimbex off patient has paradoxical breathing and fights the vent leading to desaturations. We will still DC the Nimbex and give vecuronium on an as-needed basis. I will try to see if I can try APRV or other vent settings which the patient will be more comfortable with. ET tube is 1.6 cm above the jaguar will retracted by 1 cm. Chest x-ray does not show any significant change from yesterday. 40 mg of Lasix given. QTC today 453. Methadone was increased to 10 mg every 12 For hypokalemia patient got 60 mEq of potassium I will repeat BMP mag [place] later today and give another dose of Lasix based on the urine output. I want the patient to be negative balance Patient's hemoglobin is started to trend down. We will keep a close eye on H&H Patient's Mrs. Emperatriz Neri [phone] I have personally spent 42 minutes of critical care time in the direct management of this patient. This is a life/limb threatening event. This includes time spent evaluating patient, direct bedside care, chart review, placing orders, interpretation of diagnostic studies, discussion with consultants, patient, and family members, as well as other required patient management activities. This time is exclusive of all separately billable procedures, and teaching time and separate from and in addition to any other critical care service time. Please note the above document was generated using voice recognition software. It may contain grammatical, syntax or spelling errors. Admission and Anticipated Discharge Date Admission Date: March 20, 2021 Subjective Patient seen and examined at bedside. On 6 of midazolam, 75 fentanyl and 40 of propofol Patient was on 10 of PEEP, 50% FiO2 saturating 90-91% Patient was paralyzed with Nimbex Has been afebrile. Review of Systems Review of Systems: Unobtainable due to endotracheal tube Physical Exam Physical Exam: Constitutional: Intubated, sedated HEENT: positive ETT Respiratory system: Decreased air entry bilaterally, no wheeze, rhonchi, positive crackles bilateral lower lobes CVS: S1-S2 positive, no murmurs or gallops Abdomen: Soft, nontender, nondistended, positive bowel sounds x4, obese Extremities: +2 pulses bilaterally radialis/ dorsalis pedis, no cyanosis, +1 pitting edema Neuro: RASS -1, breathing over the vent, positive corneal, positive gag Psych: Unable to assess G/U: Positive Rogers Skin: no rashes, warm and dry Lymphatic: no cervical or axillary lymphadenopathy Results & Data Results & Data ([facility]) Vital Signs (Past 12 Hours) Vital Signs Temp Pulse Resp BP Pulse Ox Pulse Ox 03/31/21 10:56 37.4 C 77 122/69 87 L 03/31/21 10:00 86 89 L 03/31/21 09:56 37.1 C 71 125/77 87 L 03/31/21 08:56 37.0 C 74 128/72 91 03/31/21 07:56 36.9 C 76 134/75 91 03/31/21 06:53 65 25 H 91 03/31/21 05:56 36.9 C 62 138/78 91 03/31/21 05:44 66 03/31/21 04:56 36.9 C 58 L 126/70 91 03/31/21 03:56 36.7 C 58 L 124/68 91 03/31/21 03:14 53 L 25 H 90 03/31/21 02:56 36.7 C 51 L 122/68 92 03/31/21 01:56 36.5 C 49 L 126/65 92 03/31/21 00:47 36.5 C 45 L 142/73 H 93 03/30/21 23:58 43 L 03/30/21 23:56 36.5 C 43 L 139/72 92 03/31/21 05:11 03/31/21 05:11 Coding Level of Care Code Critical Care 1st 30-74 mins Diagnoses Acute respiratory failure with hypoxia J96.01 Pneumonia due to COVID-19 virus U07.1; J12.82 Transaminitis R74.01 Pneumomediastinum J98.2 Time Spent (min) 42
[2021-03-31] MEDS: PEPTAMEN INTENSE VHP 1.0 CAL 1,000 ML BAG GT SCH (12:15)
[2021-03-31] MEDS: NOREPINEPHRINE/D5W 8 MG/508 ML BAG IV SCH ×2 (12:36→18:33)
[2021-03-31] MEDS: MIDAZOLAM HCL 125 MG/250 ML BAG IV SCH (13:33)
[2021-03-31 15:14] LABS: BUN Creatinine Ratio 30.3 (10-20); Calcium 7.7 mg/dl (8.5-10.1); Creatinine Clr Calc Pharmacy 74.7 ml/min; Est GFR (African American) 67.5 ml/min; Est GFR (Non-African American) 58.2 ml/min; Magnesium 2.4 mg/dl (1.8-2.4); Phosphorus 3.7 mg/dl (2.5-4.9); Potassium 4.8 mmol/L (3.5-5.1)
--- NOTE | 2021-03-31 15:41 | Hospitalist Progress Note ---
Date of Service March 31, 2021 Assessment & Plan (1) Acute respiratory failure with hypoxia: Plan: due to COVID 19 pneumonia, bilateral infiltrates on CXR Was requiring prone positioning and BiPAP while awake, but then weaned down to wall high flow nasal cannula at 11-15 L on 03/23 However, on 03/24 worsened again was placed back on Vapotherm high flow nasal cannula On 03/25, requiring higher amounts of oxygen at 40 L and up to 80 % FiO2 to maintain pulse ox 90-91% On 03/26 switched to Ventilator HFNC at 60L, 100% FiO2 to keep POx>88%---> continued to decompensate on the morning of 03/27 and was intubated and proned Pneumomediastinum is now resolved on x-ray Status post tocilizumab on 03/21 CRP trending downward Appreciate pulmonology consultation Chest x-ray on 03/24 stable from previous, continues with pneumomediastinum but no pneumothorax Chest x-ray on 03/25 with improved pneumomediastinum, no pneumothorax, unchanged bilateral significant infiltrates CXR 03/26 and 03/27, 03/28 similar with multifocal bilateral airspace opacities CXR 03/31 shows no significant change Continue dexamethasone however on 03/28 was increased to high-dose with 20 mg daily, plan for 5 days then 10mg for 5 days IV Lasix as needed to keep in a negative fluid balance Ventilator management 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 Kate said that he is not a candidate for ECMO at their facility as age greater than 55 and was on high flow nasal cannula for greater than 3 days still requiring high levels of sedation, PRN paralytics currently on Versed Fentanyl Methadone, Propofol (2) Pneumonia due to COVID-19 virus: Plan: Symptom onset: approximately March 09, says he just got dyspnea and cough a few days prior to admission-became really short of breath on 03/20 so he came to the ED bilateral infiltrates on CXR, CRP 18 and then decreased after receiving Tocilizumab and dexamethasone Continue dexamethasone as above-now day 10 overall but on high- 20mg IV daily dose Completed 5-day course of Rocephin/Zithromax too far along in course of illness to give Remdesivir, no benefit Received Tocilizumab on 03/21 - ECG to follow QT while on azithromycin-QTc 453 on 03/23 CTA chest: no pulmonary embolism, just shows diffuse infiltrates initially CXR still with bilateral infiltrates still requiring mechanical ventilation (3) Pneumomediastinum: Plan: Now resolved (4) ROSARIO (acute kidney injury): Plan: - Baseline creatinine less than 1, acutely elevated to 1.61 on admission and now back to normal Received 2 L NSS while in ER. - no further fluid, actually gave Lasix 40mg IV daily as needed (5) Bradycardia: Plan: with sinus terry during daytime in 40s, drops to 30s at night at times with sinus pauses up to 3.6 sec while not wearing BiPAP and has known AKIL on the night that he had the pneumomediastinum develop Now rates are normal to tachycardic follow on tele not on meds that would cause AV node blockade not symptomatic, no high grade blocks (6) Transaminitis: Plan: AST and ALT were improving, but now worsening again with mild elevated total bilirubin and elevated lipase today Likely secondary to Covid infection versus medication side effect? He had no complaints of abdominal pain prior to being intubated-do not suspect cholecystitis or pancreatitis Continue to follow LFTs / COVID (7) Hypokalemia: Plan: Resolved with potassium replacement Now with hyperkalemia on 03/28 Treated with calcium gluconate and Kayexalate Follow BMP (8) Uvular hypertrophy: Plan: Uses CPAP as an outpatient, follows with ENT (9) BPH loc w urin obs/LUTS: Plan: Rogers catheter back in place after intubation (10) Epistaxis: Plan: held Lovenox on 03/26 nasal saline phenylephrine nasal spray prn Restarted Lovenox once intubated (11) Elevated lipase: Plan: As above (12) Hypotension: Plan: Hypertensive today BP then dropped with sedation may need Levophed PRN Plan: DVT prophylaxis: High-dose Lovenox, SCDs Disposition: Continued stay in ICU, very guarded prognosis CODE STATUS: [employer] Level Game [employer] discussed care with on 03/28-was made a DNR and she is aware of his very guarded prognosis Admission and Anticipated Discharge Date Admission Date: March 20, 2021 Subjective off of Nimbex again this morning, paradoxical movements, desaturating Dr. Figueroa managing, using PRN paralytics, sedation, changed to volume control labs reviewed, K is low and H/H trending down slightly ICU updated his Review of Systems Review of Systems: Unobtainable due to cognitive status and Unobtainable due to endotracheal tube Physical Exam Constitutional: well developed, + obese and + mechanically ventilated; no acute distress Neck: trachea midline, no thyromegaly Respiratory: symmetric chest movement (ventilated, supine position); no respiratory distress and no labored breathing Auscultation: no crackles, no rales, no rhonchi and no wheezes Cardiovascular: RRR, no murmur, no edema Gastrointestinal (Abdomen): normal bowel sounds, soft, nontender, no he patosplenomegaly Musculoskeletal: Head/Neck/Chest: normocephalic, head atraumatic and neck supple Extremities: extremities normal to inspection; no cyanosis, no clubbing and no petechiae Skin: no rashes, warm and dry Neurologic: + obtunded; no focal motor deficits Psychiatric: Orientation: + not alert Results & Data Results & Data ([facility]) Vital Signs (Past 12 Hours) Vital Signs Temp Pulse Resp BP Pulse Ox Pulse Ox 03/31/21 14:58 60 20 92 03/31/21 11:25 79 20 90 03/31/21 10:56 37.4 C 77 122/69 87 L 03/31/21 10:00 86 89 L 03/31/21 09:56 37.1 C 71 125/77 87 L 03/31/21 08:56 37.0 C 74 128/72 91 03/31/21 07:56 36.9 C 76 134/75 91 03/31/21 06:53 65 25 H 91 03/31/21 05:56 36.9 C 62 138/78 91 03/31/21 05:44 66 03/31/21 04:56 36.9 C 58 L 126/70 91 03/31/21 03:56 36.7 C 58 L 124/68 91 Laboratory Results Laboratory Results - last 24 hr 03/30/21 03/31/21 03/31/21 21:04 00:47 04:30 WBC RBC Hgb POC Hgb 11.6 L Hct POC Hct 34 L MCV MCH MCHC RDW Std Deviation RDW Coeff of Sujit Plt Count MPV Immature Gran % (Auto) Neut % (Auto) Lymph % (Auto) [place] % (Auto) Eos % (Auto) Baso % (Auto) Neut # (Auto) Lymph # (Auto) [place] # (Auto) Eos # (Auto) Baso # (Auto) Immature Gran # (Auto) Sample Site L Radial POC pH 7.40 POC pCO2 41 POC pO2 64 L POC HCO3 25 H POC Total CO2 26 POC Base Excess 0.0 ABG pH (Temp Correct) 7.399 ABG pCO2 (Temp Corrct 41 POC ABG pO2 at Pt Temp 63 POC ABG O2 Sat 92.0 Sher Test NA O2 Delivery Device Ventilator POC O2 Rate 25 Minute Ventilation 12 Tidal Volume 480 PEEP 10 POC Sodium 139 Sodium POC Potassium 3.4 Potassium Chloride Carbon Dioxide Anion Gap BUN Creatinine Est Cr Clr Drug Dosing Est GFR ( Amer) Est GFR (Non-Af Amer) BUN/Creatinine Ratio Glucose POC Glucose POC Glucose (other) 259 H 241 H Calcium Phosphorus Magnesium Triglycerides 03/31/21 03/31/21 03/31/21 04:41 05:11 05:11 WBC 18.00 H RBC 4.24 L Hgb 12.9 L POC Hgb Hct 37.4 L POC Hct MCV 88.2 MCH 30.4 MCHC 34.5 RDW Std Deviation 42.7 RDW Coeff of Sujit 13.3 Plt Count 211 MPV 10.2 Immature Gran % (Auto) 0.6 Neut % (Auto) 87.6 Lymph % (Auto) 3.9 [place] % (Auto) 7.5 Eos % (Auto) 0.3 Baso % (Auto) 0.1 Neut # (Auto) 15.78 H Lymph # (Auto) 0.70 L [place] # (Auto) 1.35 H Eos # (Auto) 0.05 Baso # (Auto) 0.01 Immature Gran # (Auto) 0.11 H Sample Site POC pH POC pCO2 POC pO2 POC HCO3 POC Total CO2 POC Base Excess ABG pH (Temp Correct) ABG pCO2 (Temp Corrct POC ABG pO2 at Pt Temp POC ABG O2 Sat Sher Test O2 Delivery Device POC O2 Rate Minute Ventilation Tidal Volume PEEP POC Sodium Sodium 142 POC Potassium Potassium 3.4 L Chloride 112 H Carbon Dioxide 24 Anion Gap 6.0 BUN 44 H Creatinine 1.14 Est Cr Clr Drug Dosing 84.8 Est GFR ( Amer) 80.6 Est GFR (Non-Af Amer) 69.5 BUN/Creatinine Ratio 38.7 H Glucose 183 H POC Glucose POC Glucose (other) 201 H Calcium 7.8 L Phosphorus 3.5 Magnesium 2.6 H Triglycerides 449 H 03/31/21 03/31/21 03/31/21 07:41 12:23 14:41 WBC RBC Hgb POC Hgb Hct POC Hct MCV MCH MCHC RDW Std Deviation RDW Coeff of Sujit Plt Count MPV Immature Gran % (Auto) Neut % (Auto) Lymph % (Auto) [place] % (Auto) Eos % (Auto) Baso % (Auto) Neut # (Auto) Lymph # (Auto) [place] # (Auto) Eos # (Auto) Baso # (Auto) Immature Gran # (Auto) Sample Site POC pH POC pCO2 POC pO2 POC HCO3 POC Total CO2 POC Base Excess ABG pH (Temp Correct) ABG pCO2 (Temp Corrct POC ABG pO2 at Pt Temp POC ABG O2 Sat Sher Test O2 Delivery Device POC O2 Rate Minute Ventilation Tidal Volume PEEP POC Sodium Sodium 140 POC Potassium Potassium 4.8 D Chloride 109 H Carbon Dioxide 27 Anion Gap 4.0 BUN 40 H Creatinine 1.32 Est Cr Clr Drug Dosing 74.7 Est GFR ( Amer) 67.5 Est GFR (Non-Af Amer) 58.2 BUN/Creatinine Ratio 30.3 H Glucose 270 H POC Glucose 183 H 235 H POC Glucose (other) Calcium 7.7 L Phosphorus 3.7 Magnesium 2.4 Triglycerides Medications Administered Current Inpatient Medications Acetaminophen (Acetaminophen 325 Mg Tab) 650 mg PO Q4H PRN PRN Reason: Pain or Fever Stop: 04/19/21 16:45 Last Admin: 03/26/21 22:08 Dose: 650 mg Documented by: Albuterol (Albut/Ipratrop 3mg/0.5mg Neb 3 Ml Vial) 3 ml NEB Q4R PRN PRN Reason: Shortness of Breath/Wheezing Stop: 04/19/21 16:45 Amlodipine Besylate (Amlodipine Besylate 5 Mg Tab) 10 mg PO QAM MARCIA Stop: 04/29/21 08:59 Last Admin: 03/31/21 08:20 Dose: 10 mg Documented by: Enoxaparin Sodium (Enoxaparin Inj 60 Mg/0.6 Ml Syr) 60 mg SQ Q12H MARCIA Stop: 04/19/21 16:59 Last Admin: 03/31/21 08:21 Dose: 60 mg Documented by: Fentanyl Citrate (Fentanyl Bolus From Bag) 50 mcg IV Q60M PRN PRN Reason: Pain or Agitation Stop: 04/10/21 10:05 Last Admin: 03/31/21 10:00 Dose: 50 mcg Documented by: Hydralazine HCl (Hydralazine Hcl 20 Mg/Ml Vial) 10 mg IV Q6H PRN PRN Reason: SBP GREATER THAN 160 Stop: 04/29/21 07:43 Fentanyl Citrate (Fentanyl Drip) 1,250 mcg in 250 mls @ 35 mls/hr IV .Q7H9M MARCIA; Protocol Stop: 04/10/21 10:05 Last Admin: 03/31/21 10:08 Dose: 175 mcg/hr, 35 mls/hr Documented by: Dexamethasone 10 mg/ Syringe 2.5 mls @ 1 mls/min IV DAILY [facility] Stop: 04/06/21 09:03 Dexamethasone 20 mg/ Dextrose 30 mls @ 0.833 mls/min IV DAILY [facility] Stop: 04/01/21 09:35 Last Infusion: 03/31/21 08:43 Dose: Infused Documented by: Midazolam HCl (Versed) 125 mg in 250 mls @ 14 mls/hr IV .[id number] MARCIA; Protocol Stop: 04/29/21 09:14 Last Admin: 03/31/21 13:33 Dose: 7 mg/hr, 14 mls/hr Documented by: Norepinephrine Bitartrate (Levophed/D5w) 8 mg in 508 mls @ 0 mls/hr IV .Q0M MARCIA; Protocol Stop: 04/29/21 13:29 Last Titration: 03/31/21 13:00 Dose: 0 mcg/kg/min, 0 mls/hr Documented by: Propofol (Diprivan) 1,000 mg in 100 mls @ 27 mls/hr IV .Q3H43M [facility]; Protocol Stop: 04/03/21 09:44 Insulin Aspart (Insulin Aspart 100 Units/Ml 3 Ml Pen) 0 units SC Q4 MARCIA Stop: 04/28/21 12:14 Last Admin: 03/31/21 12:47 Dose: 7 units Documented by: Lansoprazole (Lansoprazole 30 Mg Soltab) 30 mg OG BID [facility] Stop: 04/27/21 20:59 Last Admin: 03/31/21 08:22 Dose: 30 mg Documented by: Methadone HCl (Methadone Hcl 5 Mg Tab) 10 mg PO Q12H [facility] Stop: 04/14/21 09:40 Last Admin: 03/31/21 10:33 Dose: 10 mg Documented by: Midazolam HCl (Midazolam Bolus From Bag) 2 mg IV Q60M PRN PRN Reason: Sedation Stop: 04/28/21 09:28 Last Admin: 03/31/21 09:30 Dose: 2 mg Documented by: Multi-Ingredient Cream (Artificial Tears Op Oint 3.5 Gm Tube) 1 appln OP Q4H MARCIA Stop: 04/26/21 08:59 Last Admin: 03/31/21 12:16 Dose: 1 appln Documented by: Multi-Ingredient Cream (Artificial Tears Op Oint 3.5 Gm Tube) 1 appln OP Q4H MARCIA Stop: 04/30/21 10:44 Last Admin: 03/31/21 14:52 Dose: 1 appln Documented by: Nutritional Formula (Peptamen Intense Vhp 1.0 Darrian 1,000 Ml Bag) 1,000 ml GT DAILY@1200 MARCIA; Protocol Stop: 04/26/21 14:32 Last Admin: 03/31/21 12:15 Dose: 1,000 ml Documented by: Propofol (Propofol Bolus From Bag) 20 mg IV Q5M PRN PRN Reason: Sedation Stop: 04/03/21 09:40 Sterile Water (Tube Feeding Water Flush) 30 ml GT Q4H [facility] Stop: 04/27/21 13:59 Last Admin: 03/31/21 13:00 Dose: 30 ml Documented by: PG Care Time/CCT Total # of Minutes Spent Total Time Spent with Patient: Total time spent is greater than 50% in coordination of care (as documented) at patient's floor/unit and/or counseling patient: Coding Level of Care Code 66209 Subseq Hosp Care Lvl 2 Diagnoses Acute respiratory failure with hypoxia J96.01 Pneumonia due to COVID-19 virus U07.1; J12.82 Pneumomediastinum J98.2 ROSARIO (acute kidney injury) N17.9 Bradycardia R00.1 Transaminitis R74.01 Hypokalemia E87.6 Uvular hypertrophy K13.79 BPH loc w urin obs/LUTS N40.1 Epistaxis R04.0 Elevated lipase R74.8 Hypotension I95.9
[2021-03-31 18:48] LABS: Hematocrit (blood only) 36.7 % (42-52); Hemoglobin 12.7 g/dL (14.0-18.0)
[2021-03-31] MEDS ORDERED: FUROSEMIDE 20 MG in SYRINGE 0 ML IV ONE (18:59)
[2021-03-31] MEDS ORDERED: FUROSEMIDE 40 MG/4 ML VIAL IV ONE (19:15)
[2021-04-01] MEDS: propofoL 1,000 MG/100 ML VIAL IV SCH ×9 (00:04→23:08)
[2021-04-01] MEDS: fentaNYL DRIP 1,250 MCG/250 ML BAG IV SCH ×7 (00:04→23:08)
[2021-04-01] MEDS: ARTIFICIAL TEARS OP OINT 3.5 GM TUBE OP SCH ×13 (00:16→20:02)
[2021-04-01] MEDS: INSULIN ASPART 100 UNITS/ML 3 ML PEN SC SCH ×6 (00:20→20:01)
[2021-04-01] MEDS: TUBE FEEDING WATER FLUSH GT SCH ×6 (03:26→23:00)
[2021-04-01 05:15] LABS: iSTAT Art Bld Gas pCO2 Correct 50 mmHg (35-46); iSTAT Art Bld Gas pH Corrected 7.376 (7.35-7.45); iSTAT Arterial Blood Gas HCO3 29 meg/L (19-24); iSTAT Arterial Blood Gas pCO2 50 mmHg (35-46); iSTAT Arterial Blood Gas pH 7.37 (7.35-7.45); iSTAT Arterial Blood Gas pO2 61 mmHg (80-95); iSTAT Arterial Blood Gas pO2 C 61; iSTAT Carbon Dioxide 31 mmol/L (24-31); iSTAT FiO2 60 %; iSTAT Hematocrit 35 % (42-52); iSTAT Hemoglobin 11.9 g/dl (14.0-18.0); iSTAT Potassium 4.1 mmol/L (3.3-5.0); iSTAT Site Art Line; iSTAT Sodium 140 mmol/L (135-144)
[2021-04-01 05:22] LABS: Basophils # (auto) 0.01 K/uL (0-0.2); Basophils % (auto) 0.1 %; Hematocrit (blood only) 37.3 % (42-52); Hemoglobin 12.6 g/dL (14.0-18.0); Immature Granulocytes # (auto) 0.09 K/uL (0.00-0.02); Immature Granulocytes % (auto) 0.5 %; Mean Corpuscular Hemoglobin 30.1 pg (25-34); Mean Corpuscular Hgb Conc 33.8 g/dL (32-36); Mean Corpuscular Volume 89.2 fL (80-100); Mean Platelet Volume 10.4 fL (7.4-10.4); Monocytes # (auto) 1.22 K/uL (0.11-0.59); Monocytes % (auto) 7.3 %; Neutrophils # (auto) 14.84 K/uL (1.4-6.5); Neutrophils % (auto) 89.1 %; Platelet Count 206 K/uL (130-400); RDW Coefficient of Variation 13.5 % (11.5-14.5); RDW Standard Deviation 43.9 fL (36.4-46.3); Red Blood Count 4.18 M/uL (4.7-6.1); White Blood Count 16.66 K/uL (4.8-10.8)
[2021-04-01] MEDS: MIDAZOLAM HCL 125 MG/250 ML BAG IV SCH ×3 (05:30→20:01)
[2021-04-01 05:43] LABS: BUN Creatinine Ratio 34.3 (10-20); Calcium 7.9 mg/dl (8.5-10.1); Creatinine Clr Calc Pharmacy 83.4 ml/min; Est GFR (African American) 77.3 ml/min; Est GFR (Non-African American) 66.7 ml/min; Magnesium 2.4 mg/dl (1.8-2.4); Potassium 4.3 mmol/L (3.5-5.1)
[2021-04-01 05:46] LABS: Phosphorus 4.6 mg/dl (2.5-4.9)
--- NOTE | 2021-04-01 05:51 | Electrocardiogram Report ---
Test Reason : Blood Pressure : / mmHG Vent. Rate : 071 BPM Atrial Rate : 071 BPM P-R Int : 140 ms QRS Dur : 108 ms QT Int : 416 ms P-R-T Axes : -04 -21 195 degrees QTc Int : 452 ms Normal sinus rhythm Abnormal ECG When compared with ECG of 23-MAR-2021 08:02, ST now depressed in Lateral leads T wave inversion now evident in Inferolateral leads Confirmed by Ángel Hickman ([id number]) on 04/01/2021 5:50:46 AM Referred By: REFERRED SELF Confirmed By:Ángel Hickman
--- NOTE | 2021-04-01 07:17 | XRay Report ---
XR chest 1V portable CLINICAL HISTORY: Respiratory failure. COMPARISON STUDY: Chest radiograph March 31, 2021. FINDINGS: Tip of endotracheal tube is 1.2 cm above the jaguar. Tip of nasogastric tube is within the gastric antrum. Right subclavian central line remains in place. Cardiomegaly is unchanged. There is n o pneumothorax. Possible small left pleural effusion. Extensive bilateral airspace opacities persist. IMPRESSION: 1. Tip of endotracheal tube 1.2 cm above the jaguar. 2. No significant change in extensive bilateral airspace opacities. ACT 112: Negative or not required by law. Electronically signed by: Floyd Neal M.D. 04/01/2021 7:15 AM
[2021-04-01] MEDS ORDERED: FUROSEMIDE 40 MG in SYRINGE 0 ML IV ONE (07:45)
--- NOTE | 2021-04-01 09:34 | Critical Care Progress Note ---
Date of Service April 01, 2021 Assessment & Plan (1) Acute respiratory failure with hypoxia: (2) Pneumonia due to COVID-19 virus: (3) Transaminitis: (4) Pneumomediastinum: Plan: Reason Critically Ill: 61-year-old male with past medical history of hypertension admitted to the hospital for COVID-19 pneumonia and acute hypoxic respiratory failure, intubated 03/27/2021 PLAN: Neuro: Neuromuscular blockade with cisatracurium --day 4 -Bis monitoring Propofol infusion and fentanyl infusions -Midazolam added 03/29/2021 as patient was very restless Resp: --VDRF with acute hypoxic respiratory failure Secondary to multilobar COVID-19 pneumonia COVID-19 PCR positive 03/16/2021 CRP 18.2 --> 9.75 --> 1.63 S/p Tocilizumab 03/21/2021 Intubated 03/27/2021 Continue with lung protective ventilation High PEEP, low tidal volume to keep Plateau < 30 with permissive hypercapnea if need be. Monitor ABGs ARDS net high-dose steroid protocol [facility] as well as [facility] team where contacted on 03/28/2021, unfortunately he is not a candidate from either side. --Pneumomediastinum--> resolved No signs of pneumothorax on the chest x-ray CV: Intermittent hypotension likely sec to sedation c/w vasopressor as needed to keep MAP>65 Fluids/Renal: Goal to remain net negative -Diuresis as needed ID: no signs of super infection right now GI/Nutrition: Transaminitis -Continue to follow c/w trickle tube feeds Heme: Leukocytosis Likely from steroids Continue to monitor Endocrine: ICU hyperglycemia protocol --Prophylaxis VTE: Lovenox on hold. Resume at a lower dose 40 mg every 12 hours in the evening GI: Lansoprazole Lines: Left radial, right subclavian, positive Rogers Diet: Trickle tube feeds Plan: In/out: + 501, urine output 2475 ABG 7.37/50/61 on 50%, PEEP of 8 Unfortunately patient again started to have paradoxical abdominal breathing and dyssynchrony with the vent. I tried APRV, pressure control, pressure support, PRVC did try to increase the tidal volume as well as increase the nighttime to see if there is any difference but he still has continuous dyssynchrony. His oxygen requirement went up. I again decided to paralyze the patient with as needed vecuronium. I think patient will ultimately need tracheostomy if you do not see any improvement. Pupils were reactive to light. Patient does have gag. I do not see any signs of intracerebral damage. If the patient continues to do this I will do a CT of the head tomorrow I will start the patient on gabapentin 100 mg twice daily to see if it is truly hiccups/acute diaphragmatic contraction which are causing this. I cannot give the patient Thorazine or metoclopramide as the QTC is prolonged today Methadone has been stopped because of prolonged QTC appreciated on the EKG today 40 mg of Lasix given. We will give another 20 mg of Lasix at night. Patient's Mrs. Emperatriz Neri [phone] I have personally spent 45 minutes of critical care time in the direct management of this patient. This is a life/limb threatening event. This includes time spent evaluating patient, direct bedside care, chart review, placing orders, interpretation of diagnostic studies, discussion with consultants, patient, and family members, as well as other required patient management activities. This time is exclusive of all separately billable procedures, and teaching time and separate from and in addition to any other critical care service time. Please note the above document was generated using voice recognition software. It may contain grammatical, syntax or spelling errors. Admission and Anticipated Discharge Date Admission Date: March 20, 2021 Subjective Patient seen and examined at bedside. No acute distress. Patient did get vecuronium 10 mg yesterday in the afternoon he did fairly well he did have again the same paradoxical abdominal movement with double triggering/hiccups early in the morning I did try different ventilator modes to see if it will get rid of it unfortunately it did not Patient is getting trickle feeds Has been afebrile. Good urine output Review of Systems Review of Systems: Unobtainable due to endotracheal tube Physical Exam Physical Exam: Constitutional: Intubated, sedated HEENT: positive ETT, PERRLA Respiratory system: Decreased air entry bilaterally, no wheeze, rhonchi, positive crackles bilateral lower lobes CVS: S1-S2 positive, no murmurs or gallops Abdomen: Soft, nontender, nondistended, positive bowel sounds x4, obese Extremities: +2 pulses bilaterally radialis/ dorsalis pedis, no cyanosis, +2 pitting edema Neuro: RASS -1, breathing over the vent, positive corneal, positive gag Psych: Unable to assess G/U: Positive Rogers Skin: no rashes, warm and dry Lymphatic: no cervical or axillary lymphadenopathy Results & Data Results & Data ([facility]) Vital Signs (Past 12 Hours) Vital Signs Temp Pulse Resp BP Pulse Ox 04/01/21 08:02 63 118/68 90 04/01/21 08:00 69 118/68 04/01/21 07:20 65 23 91 04/01/21 07:02 36.8 C 62 121/70 91 04/01/21 06:02 36.9 C 66 121/65 92 04/01/21 05:02 36.9 C 62 115/71 91 04/01/21 04:02 62 114/70 90 04/01/21 03:46 62 24 90 04/01/21 03:32 36.9 C 62 123/68 90 04/01/21 03:02 36.9 C 61 102/61 85 L 04/01/21 02:32 36.9 C 61 107/62 88 L 04/01/21 02:02 36.9 C 62 107/64 89 L 04/01/21 01:02 36.9 C 62 103/63 87 L 04/01/21 00:32 36.9 C 63 105/59 L 89 L 04/01/21 00:02 36.9 C 55 L 112/65 89 L 03/31/21 23:32 36.9 C 54 L 116/68 88 L 03/31/21 23:08 53 L 03/31/21 23:02 36.9 C 54 L 114/65 90 03/31/21 22:32 37.0 C 54 L 114/65 88 L 03/31/21 22:20 54 L 23 90 03/31/21 22:02 37.0 C 53 L 114/68 90 03/31/21 21:32 37.0 C 49 L 121/69 90 04/01/21 04:51 04/01/21 04:51 PG Care Time/CCT Total # of Minutes Spent Total Time Spent with Patient: Total time spent is greater than 50% in coordination of care (as documented) at patient's floor/unit and/or counseling patient: 45 Coding Level of Care Code None Diagnoses Acute respiratory failure with hypoxia J96.01 Pneumonia due to COVID-19 virus U07.1; J12.82 Transaminitis R74.01 Pneumomediastinum J98.2 Time Spent (min) 45
[2021-04-01] MEDS: dexAMETHasone 20 MG in DEXTROSE 5% 25 ML IV SCH (09:44)
[2021-04-01] MEDS: LANSOPRAZOLE 30 MG SOLTAB OG SCH ×2 (09:46→20:31)
[2021-04-01] MEDS: ENOXAPARIN INJ 60 MG/0.6 ML SYR SQ SCH (09:48)
[2021-04-01] MEDS ORDERED: VECURONIUM BROMIDE 10 MG VIAL IV STA ×3 (10:32→19:41)
[2021-04-01] MEDS ORDERED: VECURONIUM BROMIDE 10 MG VIAL IV SCH (10:45)
--- NOTE | 2021-04-01 11:54 | Hospitalist Progress Note ---
Date of Service April 01, 2021 Assessment & Plan (1) Acute respiratory failure with hypoxia: Plan: due to COVID 19 pneumonia, bilateral infiltrates on CXR Was requiring prone positioning and BiPAP while awake, but then weaned down to wall high flow nasal cannula at 11-15 L on 03/23 However, on 03/24 worsened again was placed back on Vapotherm high flow nasal cannula On 03/25, requiring higher amounts of oxygen at 40 L and up to 80 % FiO2 to maintain pulse ox 90-91% On 03/26 switched to Ventilator HFNC at 60L, 100% FiO2 to keep POx>88%---> continued to decompensate on the morning of 03/27 and was intubated and proned Pneumomediastinum is now resolved on x-ray Status post tocilizumab on 03/21 CRP trending downward Chest x-ray on 03/24 stable from previous, continues with pneumomediastinum but no pneumothorax Chest x-ray on 03/25 with improved pneumomediastinum, no pneumothorax, unchanged bilateral significant infiltrates CXR 03/26 and 03/27, 03/28 similar with multifocal bilateral airspace opacities CXR 03/31 and 04/01 with no significant change Continue dexamethasone however on 03/28 was increased to high-dose with 20 mg daily, plan for 5 days then 10mg for 5 days IV Lasix as needed to keep in a negative fluid balance Ventilator management as per pvc loader [employer] contacted [facility] about ECMO-no beds available on 03/28. Kate said that he is not a candidate for ECMO at their facility as age greater than 55 and was on high flow nasal cannula for greater than 3 days still requiring high levels of sedation, PRN paralytics currently on Versed Fentanyl, Propofol and PRN vecuronium (2) Pneumonia due to COVID-19 virus: Plan: Symptom onset: approximately March 09, says he just got dyspnea and cough a few days prior to admission-became really short of breath on 03/20 so he came to the ED bilateral infiltrates on CXR, CRP 18 and then decreased after receiving Tocilizumab and dexamethasone Continue dexamethasone as above-now day 10 overall but on high- 20mg IV daily dose Completed 5-day course of Rocephin/Zithromax too far along in course of illness to give Remdesivir, no benefit Received Tocilizumab on 03/21 - ECG to follow QT while on azithromycin-QTc 453 on 03/23 CTA chest: no pulmonary embolism, just shows diffuse infiltrates initially CXR still with bilateral infiltrates still requiring mechanical ventilation (3) Pneumomediastinum: Plan: Now resolved (4) ROSARIO (acute kidney injury): Plan: - Baseline creatinine less than 1, acutely elevated to 1.61 on admission and now back to normal Received 2 L NSS while in ER. - no further fluid, actually gave Lasix 40mg IV daily as needed (5) Bradycardia: Plan: with sinus terry during daytime in 40s, drops to 30s at night at times with sinus pauses up to 3.6 sec while not wearing BiPAP and has known AKIL on the night that he had the pneumomediastinum develop Now rates are normal to tachycardic follow on tele not on meds that would cause AV node blockade not symptomatic, no high grade blocks (6) Transaminitis: Plan: AST and ALT were improving, but now worsening again with mild elevated total bilirubin and elevated lipase today Likely secondary to Covid infection versus medication side effect? He had no complaints of abdominal pain prior to being intubated-do not suspect cholecystitis or pancreatitis Continue to follow LFTs 2/ COVID (7) Hypokalemia: Plan: Resolved with potassium replacement Now with hyperkalemia on 03/28 Treated with calcium gluconate and Kayexalate Follow BMP (8) Uvular hypertrophy: Plan: Uses CPAP as an outpatient, follows with ENT (9) BPH loc w urin obs/LUTS: Plan: Rogers catheter back in place after intubation (10) Epistaxis: Plan: held Lovenox on 03/26 nasal saline phenylephrine nasal spray prn Restarted Lovenox once intubated (11) Elevated lipase: Plan: As above (12) Hypotension: Plan: Hypertensive today BP then dropped with sedation may need Levophed PRN Plan: DVT prophylaxis: High-dose Lovenox, SCDs Disposition: Continued stay in ICU, very guarded prognosis CODE STATUS: [employer] discussed care with on 03/28-was made a DNR and she is aware of his very guarded prognosis Admission and Anticipated Discharge Date Admission Date: March 20, 2021 Subjective patient again was non-compliant with vent once off paralytics discussed with Dr. Figueroa and SERVICES EXECUTIVE stopped methadone, using Propofol, fentanyl, versed and will give vecuronium PRN he would like to give Thorazine for possible hiccups but QTc is too long FiO2 slowly improving but if mental status, ventilator compliance does not improve he will need tracheostomy labs reviewed his has been updated by Dr. Figueroa Review of Systems Review of Systems: Unobtainable due to cognitive status and Unobtainable due to endotracheal tube Physical Exam Constitutional: well developed, + obese and + mechanically ventilated; no acute distress Neck: trachea midline, no thyromegaly Respiratory: symmetric chest movement (ventilated, supine position); no respiratory distress and no labored breathing Auscultation: no crackles, no rales, no rhonchi and no wheezes Cardiovascular: RRR, no murmur, no edema Gastrointestinal (Abdomen): normal bowel sounds, soft, nontender, no hepatosplenomegaly Musculoskeletal: Head/Neck/Chest: normocephalic, head atraumatic and neck supple Extremities: extremities normal to inspection; no cyanosis, no clubbing and no petechiae Skin: no rashes, warm and dry Neurologic: + obtunded; no focal motor deficits Psychiatric: Orientation: + not alert Results & Data Results & Data ([facility]) Vital Signs (Past 12 Hours) Vital Signs Temp Pulse Resp BP Pulse Ox Pulse Ox 04/01/21 11:02 37.1 C 89 158/84 H 98 04/01/21 10:32 80 23 92 04/01/21 10:02 37.1 C 85 109/62 89 L 04/01/21 10:00 90 04/01/21 09:02 34.1 C L 65 119/64 89 L 04/01/21 08:02 63 118/68 90 04/01/21 08:00 69 118/68 04/01/21 07:20 65 23 91 04/01/21 07:02 36.8 C 62 121/70 91 04/01/21 06:02 36.9 C 66 121/65 92 04/01/21 05:02 36.9 C 62 115/71 91 04/01/21 04:02 62 114/70 90 04/01/21 03:46 62 24 90 04/01/21 03:32 36.9 C 62 123/68 90 04/01/21 03:02 36.9 C 61 102/61 85 L 04/01/21 02:32 36.9 C 61 107/62 88 L 04/01/21 02:02 36.9 C 62 107/64 89 L 04/01/21 01:02 36.9 C 62 103/63 87 L 04/01/21 00:32 36.9 C 63 105/59 L 89 L 04/01/21 00:02 36.9 C 55 L 112/65 89 L Laboratory Results Laboratory Results - last 24 hr 03/31/21 03/31/21 03/31/21 12:23 14:41 18:38 WBC RBC Hgb 12.7 L POC Hgb Hct 36.7 L POC Hct MCV MCH MCHC RDW Std Deviation RDW Coeff of Sujit Plt Count MPV Immature Gran % (Auto) Neut % (Auto) Lymph % (Auto) [place] % (Auto) Eos % (Auto) Baso % (Auto) Neut # (Auto) Lymph # (Auto) [place] # (Auto) Eos # (Auto) Baso # (Auto) Immature Gran # (Auto) Sample Site POC pH POC pCO2 POC pO2 POC HCO3 POC Total CO2 POC Base Excess ABG pH (Temp Correct) ABG pCO2 (Temp Corrct POC ABG pO2 at Pt Temp POC ABG O2 Sat Sher Test O2 Delivery Device POC O2 Rate POC FiO2 Tidal Volume PEEP POC Sodium Sodium 140 POC Potassium Potassium 4.8 D Chloride 109 H Carbon Dioxide 27 Anion Gap 4.0 BUN 40 H Creatinine 1.32 Est Cr Clr Drug Dosing 74.7 Est GFR ( Amer) 67.5 Est GFR (Non-Af Amer) 58.2 BUN/Creatinine Ratio 30.3 H Glucose 270 H POC Glucose 235 H POC Glucose (other) Calcium 7.7 L Phosphorus 3.7 Magnesium 2.4 03/31/21 04/01/21 04/01/21 19:56 00:07 03:46 WBC RBC Hgb POC Hgb Hct POC Hct MCV MCH MCHC RDW Std Deviation RDW Coeff of Sujit Plt Count MPV Immature Gran % (Auto) Neut % (Auto) Lymph % (Auto) [place] % (Auto) Eos % (Auto) Baso % (Auto) Neut # (Auto) Lymph # (Auto) [place] # (Auto) Eos # (Auto) Baso # (Auto) Immature Gran # (Auto) Sample Site POC pH POC pCO2 POC pO2 POC HCO3 POC Total CO2 POC Base Excess ABG pH (Temp Correct) ABG pCO2 (Temp Corrct POC ABG pO2 at Pt Temp POC ABG O2 Sat Sher Test O2 Delivery Device POC O2 Rate POC FiO2 Tidal Volume PEEP POC Sodium Sodium POC Potassium Potassium Chloride Carbon Dioxide Anion Gap BUN Creatinine Est Cr Clr Drug Dosing Est GFR ( Amer) Est GFR (Non-Af Amer) BUN/Creatinine Ratio Glucose POC Glucose 175 H 131 H POC Glucose (other) 225 H Calcium Phosphorus Magnesium 04/01/21 04/01/21 04/01/21 04:51 04:51 04:56 WBC 16.66 H RBC 4.18 L Hgb 12.6 L POC Hgb 11.9 L Hct 37.3 L POC Hct 35 L MCV 89.2 MCH 30.1 MCHC 33.8 RDW Std Deviation 43.9 RDW Coeff of Sujit 13.5 Plt Count 206 MPV 10.4 Immature Gran % (Auto) 0.5 Neut % (Auto) 89.1 Lymph % (Auto) 3.0 [place] % (Auto) 7.3 Eos % (Auto) 0.0 Baso % (Auto) 0.1 Neut # (Auto) 14.84 H Lymph # (Auto) 0.50 L [place] # (Auto) 1.22 H Eos # (Auto) 0.00 Baso # (Auto) 0.01 Immature Gran # (Auto) 0.09 H Sample Site Art Line POC pH 7.37 POC pCO2 50 H POC pO2 61 L POC HCO3 29 H POC Total CO2 31 POC Base Excess 4.0 H ABG pH (Temp Correct) 7.376 ABG pCO2 (Temp Corrct 50 H POC ABG pO2 at Pt Temp 61 POC ABG O2 Sat 90.0 Sher Test NA O2 Delivery Device Ventilator POC O2 Rate 20 POC FiO2 60 Tidal Volume 480 PEEP 8 POC Sodium 140 Sodium 141 POC Potassium 4.1 Potassium 4.3 Chloride 111 H Carbon Dioxide 27 Anion Gap 3.0 BUN 40 H Creatinine 1.18 Est Cr Clr Drug Dosing 83.4 Est GFR ( Amer) 77.3 Est GFR (Non-Af Amer) 66.7 BUN/Creatinine Ratio 34.3 H Glucose 126 H POC Glucose POC Glucose (other) Calcium 7.9 L Phosphorus 4.6 Magnesium 2.4 Medications Administered Current Inpatient Medications Acetaminophen (Acetaminophen 325 Mg Tab) 650 mg PO Q4H PRN PRN Reason: Pain or Fever Stop: 04/19/21 16:45 Last Admin: 03/26/21 22:08 Dose: 650 mg Documented by: Albuterol (Albut/Ipratrop 3mg/0.5mg Neb 3 Ml Vial) 3 ml NEB Q4R PRN PRN Reason: Shortness of Breath/Wheezing Stop: 04/19/21 16:45 Amlodipine Besylate (Amlodipine Besylate 5 Mg Tab) 10 mg PO QAM [facility] Stop: 04/29/21 08:59 Last Admin: 03/31/21 08:20 Dose: 10 mg Documented by: Enoxaparin Sodium (Enoxaparin Inj 40 Mg/0.4 Ml Syr) 40 mg SQ Q12 MARCIA Stop: 05/01/21 20:59 Fentanyl Citrate (Fentanyl Bolus From Bag) 50 mcg IV Q60M PRN PRN Reason: Pain or Agitation Stop: 04/10/21 10:05 Last Admin: 03/31/21 10:00 Dose: 50 mcg Documented by: Hydralazine HCl (Hydralazine Hcl 20 Mg/Ml Vial) 10 mg IV Q6H PRN PRN Reason: SBP GREATER THAN 160 Stop: 04/29/21 07:43 Fentanyl Citrate (Fentanyl Drip) 1,250 mcg in 250 mls @ 30 mls/hr IV .Q8H20M MARCIA; Protocol Stop: 04/10/21 10:05 Last Admin: 04/01/21 10:49 Dose: Not Given Documented by: Dexamethasone 10 mg/ Syringe 2.5 mls @ 1 mls/min IV DAILY [facility] Stop: 04/06/21 09:03 Midazolam HCl (Versed) 125 mg in 250 mls @ 12 mls/hr IV .[id number] MARCIA; Protocol Stop: 04/29/21 09:14 Last Admin: 04/01/21 08:13 Dose: 6 mg/hr, 12 mls/hr Documented by: Norepinephrine Bitartrate (Levophed/D5w) 8 mg in 508 mls @ 0 mls/hr IV .Q0M MARCIA; Protocol Stop: 04/29/21 13:29 Last Titration: 03/31/21 23:50 Dose: 0 mcg/kg/min, 0 mls/hr Documented by: Propofol (Diprivan) 1,000 mg in 100 mls @ 23.625 mls/hr IV .Q4H14M [facility]; Protocol Stop: 04/03/21 09:44 Last Admin: 04/01/21 08:14 Dose: 35 mcg/kg/min, 23.6 mls/hr Documented by: Insulin Aspart (Insulin Aspart 100 Units/Ml 3 Ml Pen) 0 units SC Q4 [facility] Stop: 04/28/21 12:14 Last Admin: 04/01/21 09:04 Dose: Not Given Documented by: Lansoprazole (Lansoprazole 30 Mg Soltab) 30 mg OG BID [facility] Stop: 04/27/21 20:59 Last Admin: 04/01/21 09:46 Dose: 30 mg Documented by: Methadone HCl (Methadone Hcl 5 Mg Tab) 10 mg PO Q12H [facility] Stop: 04/14/21 09:40 Last Admin: 03/31/21 21:12 Dose: 10 mg Documented by: Midazolam HCl (Midazolam Bolus From Bag) 2 mg IV Q60M PRN PRN Reason: Sedation Stop: 04/28/21 09:28 Last Admin: 03/31/21 09:30 Dose: 2 mg Documented by: Multi-Ingredient Cream (Artificial Tears Op Oint 3.5 Gm Tube) 1 appln OP Q4H [facility] Stop: 04/26/21 08:59 Last Admin: 04/01/21 09:45 Dose: 1 appln Documented by: Multi-Ingredient Cream (Artificial Tears Op Oint 3.5 Gm Tube) 1 appln OP Q4H [facility] Stop: 04/30/21 10:44 Last Admin: 04/01/21 09:48 Dose: 1 appln Documented by: Nutritional Formula (Peptamen Intense Vhp 1.0 Darrian 1,000 Ml Bag) 1,000 ml OG UD [facility]; Protocol Stop: 05/01/21 10:14 Propofol (Propofol Bolus From Bag) 20 mg IV Q5M PRN PRN Reason: Sedation Stop: 04/03/21 09:40 Sterile Water (Tube Feeding Water Flush) 30 ml GT Q4H [facility] Stop: 04/27/21 13:59 Last Admin: 04/01/21 09:48 Dose: 30 ml Documented by: PG Care Time/CCT Total # of Minutes Spent Total Time Spent with Patient: Total time spent is greater than 50% in coordination of care (as documented) at patient's floor/unit and/or counseling patient: Coding Level of Care Code 78857 Subseq Hosp Care Lvl 2 Diagnoses Acute respiratory failure with hypoxia J96.01 Pneumonia due to COVID-19 virus U07.1; J12.82 Pneumomediastinum J98.2 ROSARIO (acute kidney injury) N17.9 Bradycardia R00.1 Transaminitis R74.01 Hypokalemia E87.6 Uvular hypertrophy K13.79 BPH loc w urin obs/LUTS N40.1 Epistaxis R04.0 Elevated lipase R74.8 Hypotension I95.9
[2021-04-01] MEDS ORDERED: VECURONIUM BROMIDE 10 MG VIAL IV ONE ×3 (13:01→22:17)
--- NOTE | 2021-04-01 13:27 | Critical Care Progress Note ---
Date of Service April 01, 2021 Assessment & Plan (1) Acute respiratory failure with hypoxia: (2) Pneumonia due to COVID-19 virus: (3) Transaminitis: (4) Pneumomediastinum: Plan: Reason Critically Ill: 61-year-old male with past medical history of hypertension admitted to the hospital for COVID-19 pneumonia and acute hypoxic respiratory failure, intubated 03/27/2021 PLAN: Neuro: Neuromuscular blockade with cisatracurium --day 4 stopped 03/31/21 -Bis monitoring Propofol infusion and fentanyl infusions -Midazolam added 03/29/2021 as patient was very restless Resp: --VDRF with acute hypoxic respiratory failure Secondary to multilobar COVID-19 pneumonia COVID-19 PCR positive 03/16/2021 CRP 18.2 --> 9.75 --> 1.63 S/p Tocilizumab 03/21/2021 Intubated 03/27/2021 Continue with lung protective ventilation High PEEP, low tidal volume to keep Plateau < 30 with permissive hypercapnea if need be. Monitor ABGs ARDS net high-dose steroid protocol [facility] as well as [facility] team where contacted on 03/28/2021, unfortunately he is not a candidate from either side. --Pneumomediastinum--> resolved No signs of pneumothorax on the chest x-ray CV: Intermittent hypotension likely sec to sedation c/w vasopressor as needed to keep MAP>65 Fluids/Renal: Goal to remain net negative -Diuresis as needed ID: no signs of super infection right now GI/Nutrition: Transaminitis -Continue to follow c/w trickle tube feeds Heme: Leukocytosis Likely from steroids Continue to monitor Endocrine: ICU hyperglycemia protocol --Prophylaxis VTE: Lovenox on hold. Resume at a lower dose 40 mg every 12 hours in the evening GI: Lansoprazole Lines: Left radial, right subclavian, positive Rogers Diet: Trickle tube feeds Plan: In/out: + 501, urine output 2475 ABG 7.37/50/61 on 50%, PEEP of 8 Unfortunately patient again started to have paradoxical abdominal breathing and dyssynchrony with the vent. I tried APRV, pressure control, pressure support, PRVC did try to increase the tidal volume as well as increase the nighttime to see if there is any difference but he still has continuous dyssynchrony. His oxygen requirement went up. I again decided to paralyze the patient with as needed vecuronium. I think patient will ultimately need tracheostomy if you do not see any improvement. Pupils were reactive to light. Patient does have gag. I do not see any signs of intracerebral damage. If the patient continues to do this I will do a CT of the head tomorrow I will start the patient on gabapentin 100 mg twice daily to see if it is truly hiccups/acute diaphragmatic contraction which are causing this. I cannot give the patient Thorazine or metoclopramide as the QTC is prolonged today Methadone has been stopped because of prolonged QTC appreciated on the EKG today 40 mg of Lasix given. We will give another 20 mg of Lasix at night. Patient's Mrs. Emperatriz Neri [phone] I have personally spent 45 minutes of critical care time in the direct management of this patient. This is a life/limb threatening event. This includes time spent evaluating patient, direct bedside care, chart review, placing orders, interpretation of diagnostic studies, discussion with consultants, patient, and family members, as well as other required patient management activities. This time is exclusive of all separately billable procedures, and teaching time and separate from and in addition to any other critical care service time. Please note the above document was generated using voice recognition software. It may contain grammatical, syntax or spelling errors. Admission and Anticipated Discharge Date Admission Date: March 20, 2021 Subjective Patient seen and examined at bedside. No acute distress. Patient did get vecuronium 10 mg yesterday in the afternoon he did fairly well he did have again the same paradoxical abdominal movement with double triggering/hiccups early in the morning I did try different ventilator modes to see if it will get rid of it unfortun ately it did not Patient is getting trickle feeds Has been afebrile. Good urine output Review of Systems Review of Systems: Unobtainable due to mental health condition and Unobtainable due to endotracheal tube Physical Exam Physical Exam: Constitutional: Intubated, sedated HEENT: positive ETT, PERRLA Respiratory system: Decreased air entry bilaterally, no wheeze, rhonchi, positive crackles bilateral lower lobes CVS: S1-S2 positive, no murmurs or gallops Abdomen: Soft, nontender, nondistended, positive bowel sounds x4, obese Extremities: +2 pulses bilaterally radialis/ dorsalis pedis, no cyanosis, +2 pitting edema Neuro: RASS -1, breathing over the vent, positive corneal, positive gag Psych: Unable to assess G/U: Positive Rogers Skin: no rashes, warm and dry Lymphatic: no cervical or axillary lymphadenopathy Results & Data Results & Data ([facility]) Vital Signs (Past 12 Hours) Vital Signs Temp Pulse Resp BP Pulse Ox Pulse Ox 04/01/21 13:02 73 111/65 95 04/01/21 12:02 74 112/66 94 04/01/21 11:58 36.7 C 79 118/65 94 04/01/21 11:02 37.1 C 89 158/84 H 98 04/01/21 10:32 80 23 92 04/01/21 10:02 37.1 C 85 109/62 89 L 04/01/21 10:00 90 04/01/21 09:02 34.1 C L 65 119/64 89 L 04/01/21 08:02 63 118/68 90 04/01/21 08:00 69 118/68 04/01/21 07:20 65 23 91 04/01/21 07:02 36.8 C 62 121/70 91 04/01/21 06:02 36.9 C 66 121/65 92 04/01/21 05:02 36.9 C 62 115/71 91 04/01/21 04:02 62 114/70 90 04/01/21 03:46 62 24 90 04/01/21 03:32 36.9 C 62 123/68 90 04/01/21 03:02 36.9 C 61 102/61 85 L 04/01/21 02:32 36.9 C 61 107/62 88 L 04/01/21 02:02 36.9 C 62 107/64 89 L 04/01/21 04:51 Coding Level of Care Code Critical Care 1st 30-74 mins Diagnoses Acute respiratory failure with hypoxia J96.01 Pneumonia due to COVID-19 virus U07.1; J12.82 Transaminitis R74.01 Pneumomediastinum J98.2 Time Spent (min) 45
[2021-04-01 13:29] LABS: Hematocrit (blood only) 37.4 % (42-52); Hemoglobin 12.4 g/dL (14.0-18.0)
[2021-04-01] MEDS: MIDAZOLAM BOLUS FROM BAG IV PRN ×3 (19:00→21:20)
[2021-04-01] MEDS ORDERED: FUROSEMIDE 40 MG/4 ML VIAL IV ONE ×2 (19:00→19:30)
[2021-04-01] MEDS ORDERED: FUROSEMIDE 20 MG in SYRINGE 0 ML IV ONE (19:13)
[2021-04-01] MEDS: PROPOFOL BOLUS FROM BAG IV PRN ×4 (19:30→21:20)
[2021-04-01] MEDS: ENOXAPARIN INJ 40 MG/0.4 ML SYR SQ SCH (20:32)
[2021-04-01] MEDS: GABAPENTIN 250 MG/5 ML 470 ML BTL PO SCH (20:35)
[2021-04-01] MEDS ORDERED: GABAPENTIN 100 MG CAP PO SCH (21:00)
[2021-04-01] MEDS: ACETAMINOPHEN 325 MG TAB PO PRN (21:20)
[2021-04-02] MEDS: INSULIN ASPART 100 UNITS/ML 3 ML PEN SC SCH ×6 (00:34→20:30)
[2021-04-02] MEDS: ARTIFICIAL TEARS OP OINT 3.5 GM TUBE OP SCH ×13 (00:46→23:15)
[2021-04-02] MEDS: TUBE FEEDING WATER FLUSH GT SCH ×6 (02:04→23:15)
[2021-04-02] MEDS: propofoL 1,000 MG/100 ML VIAL IV SCH ×9 (02:41→23:14)
[2021-04-02] MEDS: PEPTAMEN INTENSE VHP 1.0 CAL 1,000 ML BAG OG SCH (02:41)
[2021-04-02] MEDS: MIDAZOLAM HCL 125 MG/250 ML BAG IV SCH ×3 (02:41→20:00)
[2021-04-02] MEDS: fentaNYL DRIP 1,250 MCG/250 ML BAG IV SCH ×5 (04:52→18:09)
[2021-04-02 05:00] LABS: iSTAT Art Bld Gas pCO2 Correct 52 mmHg (35-46); iSTAT Art Bld Gas pH Corrected 7.337 (7.35-7.45); iSTAT Arterial Blood Gas HCO3 28 meg/L (19-24); iSTAT Arterial Blood Gas pCO2 51 mmHg (35-46); iSTAT Arterial Blood Gas pH 7.35 (7.35-7.45); iSTAT Arterial Blood Gas pO2 64 mmHg (80-95); iSTAT Arterial Blood Gas pO2 C 68; iSTAT Carbon Dioxide 29 mmol/L (24-31); iSTAT FiO2 60 %; iSTAT Hematocrit 36 % (42-52); iSTAT Hemoglobin 12.2 g/dl (14.0-18.0); iSTAT Potassium 3.9 mmol/L (3.3-5.0); iSTAT Site Art Line; iSTAT Sodium 140 mmol/L (135-144)
[2021-04-02 05:14] LABS: Hematocrit (blood only) 38.4 % (42-52); Hemoglobin 12.9 g/dL (14.0-18.0); Mean Corpuscular Hemoglobin 30.6 pg (25-34); Mean Corpuscular Hgb Conc 33.6 g/dL (32-36); Mean Corpuscular Volume 91.2 fL (80-100); Mean Platelet Volume 10.3 fL (7.4-10.4); Platelet Count 194 K/uL (130-400); RDW Standard Deviation 46.6 fL (36.4-46.3); Red Blood Count 4.21 M/uL (4.7-6.1); White Blood Count 14.66 K/uL (4.8-10.8)
[2021-04-02 05:37] LABS: BUN Creatinine Ratio 35.9 (10-20); Calcium 8.1 mg/dl (8.5-10.1); Creatinine Clr Calc Pharmacy 78.9 ml/min; Est GFR (African American) 72.8 ml/min; Est GFR (Non-African American) 62.8 ml/min; Magnesium 2.4 mg/dl (1.8-2.4)
[2021-04-02 05:38] LABS: Phosphorus 4.6 mg/dl (2.5-4.9)
[2021-04-02 05:45] LABS: Basophils # (auto) 0.01 K/uL (0-0.2); Basophils % (auto) 0.1 %; Dohle Bodies 1+; Eosinophils # (auto) 0.11 K/uL (0-0.5); Eosinophils % (auto) 0.8 %; Immature Granulocytes # (auto) 0.09 K/uL (0.00-0.02); Immature Granulocytes % (auto) 0.6 %; Lymphocytes # (auto) 0.62 K/uL (1.2-3.4); Lymphocytes % (auto) 4.2 %; Monocytes # (auto) 1.16 K/uL (0.11-0.59); Monocytes % (auto) 7.9 %; Neutrophils # (auto) 12.67 K/uL (1.4-6.5); Neutrophils % (auto) 86.4 %
--- NOTE | 2021-04-02 06:04 | Electrocardiogram Report ---
Test Reason : Blood Pressure : / mmHG Vent. Rate : 063 BPM Atrial Rate : 063 BPM P-R Int : 154 ms QRS Dur : 102 ms QT Int : 548 ms P-R-T Axes : 015 -13 219 degrees QTc Int : 560 ms Normal sinus rhythm T wave abnormality, consider inferior ischemia T wave abnormality, consider anterior ischemia Prolonged QT Abnormal ECG When compared with ECG of 31-MAR-2021 07:43, QT has lengthened T wave inversion more evident in Anterior leads Confirmed by Ángel Hickman ([id number]) on 04/02/2021 6:03:59 AM Referred By: REFERRED SELF Confirmed By:Ángel Hickman
[2021-04-02] MEDS: ACETAMINOPHEN 325 MG TAB PO PRN (06:23)
--- NOTE | 2021-04-02 08:01 | Critical Care Progress Note ---
Date of Service April 02, 2021 Assessment & Plan (1) Acute respiratory failure with hypoxia: (2) Pneumonia due to COVID-19 virus: (3) Transaminitis: (4) Pneumomediastinum: Plan: Reason Critically Ill: 61-year-old male with past medical history of hypertension admitted to the hospital for COVID-19 pneumonia and acute hypoxic respiratory failure, intubated 03/27/2021 PLAN: Neuro: Neuromuscular blockade with cisatracurium --day 4 stopped 03/31/21. Patient getting as needed vecuronium -Bis monitoring Propofol infusion and fentanyl infusions -Midazolam added 03/29/2021 as patient was very restless CT Head 04/02/21: Negative for any acute abnormality. Resp: --VDRF with acute hypoxic respiratory failure Secondary to multilobar COVID-19 pneumonia COVID-19 PCR positive 03/16/2021 CRP 18.2 --> 9.75 --> 1.63 S/p Tocilizumab 03/21/2021 Intubated 03/27/2021 Continue with lung protective ventilation High PEEP, low tidal volume to keep Plateau < 30 with permissive hypercapnea if need be. Monitor ABGs ARDS net high-dose steroid protocol Kate as well as [place] [facility] team where contacted on 03/28/2021, unfortunately he is not a candidate from either side. --Pneumomediastinum--> resolved No signs of pneumothorax on the chest x-ray CV: Intermittent hypotension likely sec to sedation c/w vasopressor as needed to keep MAP>65 Fluids/Renal: Goal to remain net negative -Diuresis as needed ID: New onset fever 04/02/2021 -Septic work-up ordered -Nasal MRSA -ve GI/Nutrition: Transaminitis -Continue to follow c/w trickle tube feeds Heme: Leukocytosis Continue to monitor Endocrine: ICU hyperglycemia protocol --Prophylaxis VTE: Lovenox GI: Lansoprazole Lines: Left radial, right subclavian, positive Rogers Diet: Trickle tube feeds Plan: In/out: -1.6 L, urine output 3830 T-max 38.1. Septic work-up ordered. Procalcitonin, blood culture, urine culture as well as sputum culture ABG 7.35/51/64 on PEEP of 10, 60% Overnight patient again got two doses of vecuronium. Gabapentin 100 mg twice daily will be increased to 100 mg 3 times daily QTC still prolonged but decreased to 498 from 560. There are T wave inversions appreciated on the lateral leads which are new compared to the time of presentation but unchanged since 03/23/21 Troponin negative I think patient will need tracheostomy in the next couple of days. 40 mg of Lasix now. Patient's Mrs. Emperatriz Neri [phone] was called and updated about current condition I have personally spent 45 minutes of critical care time in the direct management of this patient. This is a life/limb threatening event. This includes time spent evaluating patient, direct bedside care, chart review, placing orders, interpretation of diagnostic studies, discussion with consultants, patient, and family members, as well as other required patient management activities. This time is exclusive of all separately billable procedures, and teaching time and separate from and in addition to any other critical care service time. Please note the above document was generated using voice recognition software. It may contain grammatical, syntax or spelling errors. Admission and Anticipated Discharge Date Admission Date: March 20, 2021 Subjective Patient seen and examined at bedside. On propofol 45, fentanyl and 200, midazolam 6 Patient had gotten 10 of rocuronium 3 hours before I saw him. He still having this abdominal movement but I do not think it is strong enough to trigger the vent. Once the rocuronium is going to phase off he will start double triggering. He has spiked a new fever. T-max 38.1 Making good amount of urine. Getting trickle feeds. Review of Systems Review of Systems: Unobtainable due to endotracheal tube Physical Exam Physical Exam: Constitutional: Intubated, sedated HEENT: positive ETT, PERRLA Respiratory system: Decreased air entry bilaterally, no wheeze, rhonchi, positive crackles bilateral lower lobes CVS: S1-S2 positive, no murmurs or gallops Abdomen: Soft, nontender, nondistended, positive bowel sounds x4, obese Extremities: +2 pulses bilaterally radialis/ dorsalis pedis, no cyanosis, +2 pitting edema Neuro: RASS -2, breathing over the vent, positive corneal, positive gag, still double triggering Psych: Unable to assess G/U: Positive Rogers Results & Data Results & Data ([facility]) Vital Signs (Past 12 Hours) Vital Signs Temp Pulse Resp BP Pulse Ox 04/02/21 07:15 93 H 24 90 04/02/21 06:10 38.1 C H 92 H 106/62 91 04/02/21 05:40 38.0 C H 91 H 106/61 91 04/02/21 05:10 37.9 C H 90 96/65 L 92 04/02/21 04:40 37.8 C H 88 101/62 92 04/02/21 04:10 37.8 C H 86 101/60 93 04/02/21 03:40 37.7 C H 83 102/61 92 04/02/21 03:30 94 H 24 93 04/02/21 03:10 37.6 C H 84 94/64 L 95 04/02/21 02:40 37.5 C 86 98/58 L 93 04/02/21 02:10 37.4 C 86 97/61 L 93 04/02/21 01:40 37.3 C 89 99/62 L 92 04/02/21 01:10 37.3 C 92 H 98/61 L 91 04/02/21 00:40 37.2 C 99 H 87/66 L 92 04/02/21 00:10 37.3 C 98 H 115/66 95 04/01/21 23:40 37.4 C 101 H 113/67 95 04/01/21 23:25 99 H 04/01/21 23:10 37.5 C 99 H 109/71 94 04/01/21 23:05 98 H 18 92 04/01/21 22:40 37.5 C 97 H 106/65 92 04/01/21 22:10 37.5 C 95 H 99/66 L 89 L 04/01/21 21:40 37.5 C 99 H 100/71 88 L 04/01/21 21:10 37.4 C 105 H 131/73 92 04/01/21 20:40 37.6 C H 101 H 146/78 H 94 04/01/21 20:02 37.5 C 84 134/69 93 04/02/21 05:00 04/02/21 05:00 Coding Level of Care Code Critical Care 1st 30-74 mins Diagnoses Acute respiratory failure with hypoxia J96.01 Pneumonia due to COVID-19 virus U07.1; J12.82 Transaminitis R74.01 Pneumomediastinum J98.2 Time Spent (min) 45
[2021-04-02] MEDS ORDERED: FUROSEMIDE 40 MG in SYRINGE 0 ML IV ONE (08:03)
--- NOTE | 2021-04-02 08:20 | XRay Report ---
XR chest 1V portable HISTORY: Covid pneumonia. Follow-up. COMPARISON: 04/01/2021. FINDINGS: Nasogastric tube terminates in the stomach. Right subclavian central venous catheter termin ates at the SVC. Endotracheal tube terminates 3.5 cm from the jaguar. No pneumothorax. Multifocal sharlene ateral airspace opacities persist consistent with a viral pneumonia. The heart remains enlarged. No p leural effusions. IMPRESSION: 1. Satisfactory support line placement. 2. No change in the multifocal pneumonia. ACT 112: Negative or not required by law. Electronically signed by: Marco A Yee M.D. 04/02/2021 8:18 AM
[2021-04-02] MEDS: ENOXAPARIN INJ 40 MG/0.4 ML SYR SQ SCH ×2 (08:41→19:59)
[2021-04-02] MEDS: LANSOPRAZOLE 30 MG SOLTAB OG SCH ×2 (08:41→19:59)
[2021-04-02] MEDS: GABAPENTIN 250 MG/5 ML 470 ML BTL PO SCH ×3 (08:45→19:59)
[2021-04-02] MEDS: dexAMETHasone 10 MG in SYRINGE 0 ML IV SCH (08:46)
[2021-04-02] MEDS ORDERED: VECURONIUM BROMIDE 10 MG VIAL IV STA ×2 (09:14→12:39)
[2021-04-02] MEDS ORDERED: VECURONIUM BROMIDE 10 MG VIAL IV ONE ×2 (09:16→12:44)
[2021-04-02 09:19] LABS: Appearance Urine Cloudy (Clear); Bacteria Urine Automated Negative (Negative); Bilirubin Urine Negative (Negative); Blood Urine Negative (Negative); Color Urine Dark Yellow; Glucose Urine UA Negative (Negative); Ketones Urine Negative (Negative); Leukocyte Esterase Urine Negative (Negative); Nitrite Urine Negative (Negative); Protein Urine Trace (Negative); Specific Gravity Urine 1.022 (1.000-1.030); Urobilinogen Urine Negative (Negative)
[2021-04-02] MEDS: NOREPINEPHRINE/D5W 8 MG/508 ML BAG IV SCH (10:12)
[2021-04-02 10:27] LABS: Uric Acid Crystals Urine Present (None Prsent)
[2021-04-02 10:28] LABS: RBC Urine Automated 0-4 /hpf (0-4)
--- NOTE | 2021-04-02 11:56 | CT Scan Report ---
CT head/brain wo con CLINICAL HISTORY: COVID, intubated, decreased CN functioning COMPARISON STUDY: No previous studies for comparison. Correlation is made with MRI of the brain perf ormed on January 21, 2021 TECHNIQUE: Axial CT of the brain is performed from the vertex to the skull base. IV contrast was not administered for this examination. A dose lowering technique was utilized adhering to the principles of ALARA. CT DOSE: 691.05 mGy.cm FINDINGS: There are few questionable patchy areas of increase attenuation within left frontal cortex which coul d be artifactual and related to motion artifact however other etiology is also possible. No definite acute intracranial hemorrhage, no midline shift or space occupying lesions. No acute depressed calvarial fractures are visualized. There is mild soft tissue edema is seen overlying right maxillary sinus. There is no evidence of pathologic ventricular dilatation. Almost complete opacification of visualized portion of bilateral maxillary sinuses, right sphenoid si nus and posterior right ethmoid air cells. Partial opacification of the right and left mastoid air ce lls. IMPRESSION: 1. Questionable patchy areas of slightly increase attenuation within left frontal cortex, could be a rtifactual or represent intracranial lesion. No abnormalities were seen on prior MRI of the brain. Fu rther evaluation with MRI of the brain might be considered if clinically indicated. 2. Sinusitis. Subcutaneous soft tissue edema overlying right maxillary sinus. 3. The rest of findings as above. ACT 112: Negative or not required by law. The above report was generated using voice recognition software. It may contain grammatical, syntax o r spelling errors. Electronically signed by: Smiley Eubanks DO 04/02/2021 11:55 AM
[2021-04-02] MEDS: PROPOFOL BOLUS FROM BAG IV PRN (12:16)
--- NOTE | 2021-04-02 12:30 | Hospitalist Progress Note ---
Date of Service April 02, 2021 Assessment & Plan (1) Acute respiratory failure with hypoxia: Plan: due to COVID 19 pneumonia, bilateral infiltrates on CXR Was requiring prone positioning and BiPAP while awake, but then weaned down to wall high flow nasal cannula at 11-15 L on 03/23 However, on 03/24 worsened again was placed back on Vapotherm high flow nasal cannula On 03/25, requiring higher amounts of oxygen at 40 L and up to 80 % FiO2 to maintain pulse ox 90-91% On 03/26 switched to Ventilator HFNC at 60L, 100% FiO2 to keep POx>88%---> continued to decompensate on the morning of 03/27 and was intubated and proned Pneumomediastinum is now resolved on x-ray Status post tocilizumab on 03/21 CRP trending downward when last checked Chest x-ray on 03/24 stable from previous, continues with pneumomediastinum but no pneumothorax Chest x-ray on 03/25 with improved pneumomediastinum, no pneumothorax, unchanged bilateral significant infiltrates CXR 03/26 and 03/27, 03/28 similar with multifocal bilateral airspace opacities CXR 03/31 and 04/01 and 04/02 with no significant change Continue dexamethasone however on 03/28 was increased to high-dose with 20 mg daily, plan for 5 days then 10mg for 5 days IV Lasix as needed to keep in a negative fluid balance, 40mg IV given today Ventilator management as per key operator Tarp Repairer contacted [facility] about ECMO-no beds available on 03/28. Kate said that he is not a candidate for ECMO at their facility as age greater than 55 and was on high flow nasal cannula for greater than 3 days still requiring high levels of sedation, PRN paralytics currently on Versed Fentanyl, Propofol and PRN vecuronium Gabapentin 100mg TID Methadone was discontinued due to prolonged QTc Dr. Figueroa suspects he will need tracheostomy in next few days if he does not improve (2) Fever: Plan: started on 04/02 UA is clean CXR with persistent infiltrates procalcitonin is < 1 follow up cultures (3) Pneumonia due to COVID-19 virus: Plan: Symptom onset: approximately March 09, says he just got dyspnea and cough a few days prior to admission-became really short of breath on 03/20 so he came to the ED bilateral infiltrates on CXR, CRP 18 and then decreased after receiving Tocilizumab and dexamethasone Continue dexamethasone as above-now day 10 overall but on high- 20mg IV daily dose Completed 5-day course of Rocephin/Zithromax too far along in course of illness to give Remdesivir, no benefit Received Tocilizumab on 03/21 CTA chest: no pulmonary embolism, just shows diffuse infiltrates initially CXR still with bilateral infiltrates still requiring mechanical ventilation, might need tracheostomy (4) Pneumomediastinum: Plan: Now resolved (5) ROSARIO (acute kidney injury): Plan: - Baseline creatinine less than 1, acutely elevated to 1.61 on admission and now back to normal continue to monitor daily Lasix 40mg IV today, want negative fluid balance (6) Bradycardia: Plan: with sinus terry during daytime in 40s, drops to 30s at night at times with sinus pauses up to 3.6 sec while not wearing BiPAP and has known AKIL on the night that he had the pneumomediastinum develop Now rates are normal to tachycardic follow on tele not on meds that would cause AV node blockade not symptomatic, no high grade blocks (7) Transaminitis: Plan: AST and ALT were improving, but now worsening again with mild elevated total bilirubin and elevated lipase today Likely secondary to Covid infection versus medication side effect? He had no complaints of abdominal pain prior to being intubated-do not suspect cholecystitis or pancreatitis Continue to follow LFTs 09/01 COVID (8) Hypokalemia: Plan: Resolved with potassium replacement Now with hyperkalemia on 03/28 Treated with calcium gluconate and Kayexalate Follow BMP (9) Uvular hypertrophy: Plan: Uses CPAP as an outpatient, follows with ENT (10) BPH loc w urin obs/LUTS: Plan: Rogers catheter back in place after intubation (11) Epistaxis: Plan: held Lovenox on 03/26 nasal saline phenylephrine nasal spray prn Restarted Lovenox once intubated (12) Elevated lipase: Plan: As above (13) Hypotension: Plan: BP can drop with sedation Levophed PRN Plan: DVT prophylaxis: High-dose Lovenox, SCDs Disposition: Continued stay in ICU, very guarded prognosis CODE STATUS: Tarp Repairer discussed care with she is aware of his very guarded prognosis Admission and Anticipated Discharge Date Admission Date: March 20, 2021 Subjective patient with fever, WBC 14k, sepsis work up initiated by ICU with cultures, procalcitonin requiring PRN Vecuronium, Propofol, Fentanyl, Versed using gabapentin 100mg TID Dr. Figueroa managing, likely will need tracheostomy in next few days troponin 0.02, procalcitonin 0.4, urinalysis without signs of infection Review of Systems Review of Systems: Unobtainable due to cognitive status and Unobtainable due to endotracheal tube Physical Exam Constitutional: well developed, + obese and + mechanically ventilated; no acute distress Neck: trachea midline, no thyromegaly Respiratory: symmetric chest movement (ventilated, supine position); no respiratory distress and no labored breathing Auscultation: no crackles, no rales, no rhonchi and no wheezes Cardiovascular: RRR, no murmur, no edema Gastrointestinal (Abdomen): normal bowel sounds, soft, nontender, no hepatosplenomegaly Musculoskeletal: no cyanosis or clubbing, extremities motor strength 5/5 Head/Neck/Chest: normocephalic, head atraumatic and neck supple Extremities: extremities normal to inspection; no cyanosis, no clubbing and no petechiae Skin: no rashes, warm and dry Neurologic: + obtunded; no focal motor deficits Psychiatric: A+Ox3, euthymic affect Orientation: + not alert Results & Data Results & Data ([facility]) Vital Signs (Past 12 Hours) Vital Signs Temp Pulse Resp BP Pulse Ox Pulse Ox 04/02/21 11:49 96 H 20 90 04/02/21 10:40 37.6 C H 103 H 131/70 86 L 04/02/21 10:23 103 H 18 94 04/02/21 10:10 37.8 C H 102 H 123/74 90 04/02/21 10:00 86 L 04/02/21 09:40 37.9 C H 99 H 135/65 95 04/02/21 09:10 37.9 C H 90 107/59 L 86 L 04/02/21 08:40 37.9 C H 92 H 97/62 L 88 L 04/02/21 08:10 38.0 C H 90 97/62 L 88 L 04/02/21 08:00 93 H 04/02/21 07:15 93 H 24 90 04/02/21 07:10 38.0 C H 93 H 92/63 L 90 04/02/21 06:10 38.1 C H 92 H 106/62 91 04/02/21 05:40 38.0 C H 91 H 106/61 91 04/02/21 05:10 37.9 C H 90 96/65 L 92 04/02/21 04:40 37.8 C H 88 101/62 92 04/02/21 04:10 37.8 C H 86 101/60 93 04/02/21 03:40 37.7 C H 83 102/61 92 04/02/21 03:30 94 H 24 93 04/02/21 03:10 37.6 C H 84 94/64 L 95 04/02/21 02:40 37.5 C 86 98/58 L 93 04/02/21 02:10 37.4 C 86 97/61 L 93 04/02/21 01:40 37.3 C 89 99/62 L 92 04/02/21 01:10 37.3 C 92 H 98/61 L 91 04/02/21 00:40 37.2 C 99 H 87/66 L 92 Laboratory Results Laboratory Results - last 24 hr 04/01/21 04/01/21 04/01/21 13:09 16:02 19:33 WBC RBC Hgb 12.4 L POC Hgb Hct 37.4 L POC Hct MCV MCH MCHC RDW Std Deviation RDW Coeff of Sujit Plt Count MPV Immature Gran % (Auto) Neut % (Auto) Lymph % (Auto) Sunflower % (Auto) Eos % (Auto) Baso % (Auto) Neut # (Auto) Lymph # (Auto) Sunflower # (Auto) Eos # (Auto) Baso # (Auto) Immature Gran # (Auto) Dohle Bodies Sample Site POC pH POC pCO2 POC pO2 POC HCO3 POC Total CO2 POC Base Excess ABG pH (Temp Correct) ABG pCO2 (Temp Corrct POC ABG pO2 at Pt Temp POC ABG O2 Sat Sher Test O2 Delivery Device POC O2 Rate Minute Ventilation POC FiO2 Tidal Volume PEEP POC Sodium Sodium POC Potassium Potassium Chloride Carbon Dioxide Anion Gap BUN Creatinine Est Cr Clr Drug Dosing Est GFR ( Amer) Est GFR (Non-Af Amer) BUN/Creatinine Ratio Glucose POC Glucose 149 H 131 H Calcium Phosphorus Magnesium Troponin I Procalcitonin Urine Color Urine Appearance Urine pH Ur Specific [place] Urine Protein Urine Glucose (UA) Urine Ketones Urine Blood Urine Nitrite Urine Bilirubin Urine Urobilinogen Ur Leukocyte Esterase Urine WBC (Auto) Urine RBC (Auto) U Hyaline Cast (Auto) U Epithel Cells (Auto) Urine Bacteria (Auto) Ur Renal Epithelial Cell Uric Acid Crystals Urine Yeast Nasal Screen MRSA (PCR) 04/02/21 04/02/21 04/02/21 00:20 04:12 04:47 WBC RBC Hgb POC Hgb 12.2 L Hct POC Hct 36 L MCV MCH MCHC RDW Std Deviation RDW Coeff of Sujit Plt Count MPV Immature Gran % (Auto) Neut % (Auto) Lymph % (Auto) Sunflower % (Auto) Eos % (Auto) Baso % (Auto) Neut # (Auto) Lymph # (Auto) Sunflower # (Auto) Eos # (Auto) Baso # (Auto) Immature Gran # (Auto) Dohle Bodies Sample Site Art Line POC pH 7.35 POC pCO2 51 H POC pO2 64 L POC HCO3 28 H POC Total CO2 29 POC Base Excess 2.0 H ABG pH (Temp Correct) 7.337 L ABG pCO2 (Temp Corrct 52 H POC ABG pO2 at Pt Temp 68 POC ABG O2 Sat 91.0 Sher Test NA O2 Delivery Device Ventilator POC O2 Rate 18 Minute Ventilation 9.0 POC FiO2 60 Tidal Volume 500 PEEP 10 POC Sodium 140 Sodium POC Potassium 3.9 Potassium Chloride Carbon Dioxide Anion Gap BUN Creatinine Est Cr Clr Drug Dosing Est GFR ( Amer) Est GFR (Non-Af Amer) BUN/Creatinine Ratio Glucose POC Glucose 147 H 127 H Calcium Phosphorus Magnesium Troponin I Procalcitonin Urine Color Urine Appearance Urine pH Ur Specific [place] Urine Protein Urine Glucose (UA) Urine Ketones Urine Blood Urine Nitrite Urine Bilirubin Urine Urobilinogen Ur Leukocyte Esterase Urine WBC (Auto) Urine RBC (Auto) U Hyaline Cast (Auto) U Epithel Cells (Auto) Urine Bacteria (Auto) Ur Renal Epithelial Cell Uric Acid Crystals Urine Yeast Nasal Screen MRSA (PCR) 04/02/21 04/02/21 04/02/21 05:00 05:00 05:00 WBC 14.66 H RBC 4.21 L Hgb 12.9 L POC Hgb Hct 38.4 L POC Hct MCV 91.2 MCH 30.6 MCHC 33.6 RDW Std Deviation 46.6 H RDW Coeff of Sujit 14.0 Plt Count 194 MPV 10.3 Immature Gran % (Auto) 0.6 Neut % (Auto) 86.4 Lymph % (Auto) 4.2 Sunflower % (Auto) 7.9 Eos % (Auto) 0.8 Baso % (Auto) 0.1 Neut # (Auto) 12.67 H Lymph # (Auto) 0.62 L Sunflower # (Auto) 1.16 H Eos # (Auto) 0.11 Baso # (Auto) 0.01 Immature Gran # (Auto) 0.09 H Dohle Bodies 1+ Sample Site POC pH POC pCO2 POC pO2 POC HCO3 POC Total CO2 POC Base Excess ABG pH (Temp Correct) ABG pCO2 (Temp Corrct POC ABG pO2 at Pt Temp POC ABG O2 Sat Sher Test O2 Delivery Device POC O2 Rate Minute Ventilation POC FiO2 Tidal Volume PEEP POC Sodium Sodium 143 POC Potassium Potassium 4.0 Chloride 110 H Carbon Dioxide 28 Anion Gap 5.0 BUN 44 H Creatinine 1.24 Est Cr Clr Drug Dosing 78.9 Est GFR ( Amer) 72.8 Est GFR (Non-Af Amer) 62.8 BUN/Creatinine Ratio 35.9 H Glucose 134 H POC Glucose Calcium 8.1 L Phosphorus 4.6 Magnesium 2.4 Troponin I 0.024 Procalcitonin Urine Color Urine Appearance Urine pH Ur Specific [place] Urine Protein Urine Glucose (UA) Urine Ketones Urine Blood Urine Nitrite Urine Bilirubin Urine Urobilinogen Ur Leukocyte Esterase Urine WBC (Auto) Urine RBC (Auto) U Hyaline Cast (Auto) U Epithel Cells (Auto) Urine Bacteria (Auto) Ur Renal Epithelial Cell Uric Acid Crystals Urine Yeast Nasal Screen MRSA (PCR) 04/02/21 04/02/21 04/02/21 07:33 08:09 09:03 WBC RBC Hgb POC Hgb Hct POC Hct MCV MCH MCHC RDW Std Deviation RDW Coeff of Sujit Plt Count MPV Immature Gran % (Auto) Neut % (Auto) Lymph % (Auto) Sunflower % (Auto) Eos % (Auto) Baso % (Auto) Neut # (Auto) Lymph # (Auto) Sunflower # (Auto) Eos # (Auto) Baso # (Auto) Immature Gran # (Auto) Dohle Bodies Sample Site POC pH POC pCO2 POC pO2 POC HCO3 POC Total CO2 POC Base Excess ABG pH (Temp Correct) ABG pCO2 (Temp Corrct POC ABG pO2 at Pt Temp POC ABG O2 Sat Sher Test O2 Delivery Device POC O2 Rate Minute Ventilation POC FiO2 Tidal Volume PEEP POC Sodium Sodium POC Potassium Potassium Chloride Carbon Dioxide Anion Gap BUN Creatinine Est Cr Clr Drug Dosing Est GFR ( Amer) Est GFR (Non-Af Amer) BUN/Creatinine Ratio Glucose POC Glucose 145 H Calcium Phosphorus Magnesium Troponin I Procalcitonin 0.49 Urine Color Dark Yellow Urine Appearance Cloudy A Urine pH 5.0 Ur Specific [place] 1.022 Urine Protein Trace H Urine Glucose (UA) Negative Urine Ketones Negative Urine Blood Negative Urine Nitrite Negative Urine Bilirubin Negative Urine Urobilinogen Negative Ur Leukocyte Esterase Negative Urine WBC (Auto) 1-5 Urine RBC (Auto) 0-4 U Hyaline Cast (Auto) 1-5 U Epithel Cells (Auto) 5-10 H Urine Bacteria (Auto) Negative Ur Renal Epithelial Cell Not Reportable Uric Acid Crystals Present A Urine Yeast Not Reportable Nasal Screen MRSA (PCR) 04/02/21 04/02/21 10:00 11:59 WBC RBC Hgb POC Hgb Hct POC Hct MCV MCH MCHC RDW Std Deviation RDW Coeff of Sujit Plt Count MPV Immature Gran % (Auto) Neut % (Auto) Lymph % (Auto) Sunflower % (Auto) Eos % (Auto) Baso % (Auto) Neut # (Auto) Lymph # (Auto) Sunflower # (Auto) Eos # (Auto) Baso # (Auto) Immature Gran # (Auto) Dohle Bodies Sample Site POC pH POC pCO2 POC pO2 POC HCO3 POC Total CO2 POC Base Excess ABG pH (Temp Correct) ABG pCO2 (Temp Corrct POC ABG pO2 at Pt Temp POC ABG O2 Sat Sher Test O2 Delivery Device POC O2 Rate Minute Ventilation POC FiO2 Tidal Volume PEEP POC Sodium Sodium POC Potassium Potassium Chloride Carbon Dioxide Anion Gap BUN Creatinine Est Cr Clr Drug Dosing Est GFR ( Amer) Est GFR (Non-Af Amer) BUN/Creatinine Ratio Glucose POC Glucose 202 H Calcium Phosphorus Magnesium Troponin I Procalcitonin Urine Color Urine Appearance Urine pH Ur Specific [place] Urine Protein Urine Glucose (UA) Urine Ketones Urine Blood Urine Nitrite Urine Bilirubin Urine Urobilinogen Ur Leukocyte Esterase Urine WBC (Auto) Urine RBC (Auto) U Hyaline Cast (Auto) U Epithel Cells (Auto) Urine Bacteria (Auto) Ur Renal Epithelial Cell Uric Acid Crystals Urine Yeast Nasal Screen MRSA (PCR) Negative Medications Administered Current Inpatient Medications Acetaminophen (Acetaminophen 325 Mg Tab) 650 mg PO Q4H PRN PRN Reason: Pain or Fever Stop: 04/19/21 16:45 Last Admin: 04/02/21 06:23 Dose: 650 mg Documented by: Albuterol (Albut/Ipratrop 3mg/0.5mg Neb 3 Ml Vial) 3 ml NEB Q4R PRN PRN Reason: Shortness of Breath/Wheezing Stop: 04/19/21 16:45 Amlodipine Besylate (Amlodipine Besylate 5 Mg Tab) 10 mg PO QAM [facility] Stop: 04/29/21 08:59 Last Admin: 03/31/21 08:20 Dose: 10 mg Documented by: Enoxaparin Sodium (Enoxaparin Inj 40 Mg/0.4 Ml Syr) 40 mg SQ Q12 [facility] Stop: 05/01/21 20:59 Last Admin: 04/02/21 08:41 Dose: 40 mg Documented by: Fentanyl Citrate (Fentanyl Bolus From Bag) 50 mcg IV Q60M PRN PRN Reason: Pain or Agitation Stop: 04/10/21 10:05 Last Admin: 04/01/21 21:20 Dose: 50 mcg Documented by: Gabapentin (Gabapentin 250 Mg/5 Ml 470 Ml Btl) 100 mg PO TID [facility] Stop: 05/02/21 13:59 Hydralazine HCl (Hydralazine Hcl 20 Mg/Ml Vial) 10 mg IV Q6H PRN PRN Reason: SBP GREATER THAN 160 Stop: 04/29/21 07:43 Fentanyl Citrate (Fentanyl Drip) 1,250 mcg in 250 mls @ 40 mls/hr IV .Q6H15M [facility]; Protocol Stop: 04/10/21 10:05 Last Admin: 04/02/21 12:15 Dose: 200 mcg/hr, 40 mls/hr Documented by: Dexamethasone 10 mg/ Syringe 2.5 mls @ 1 mls/min IV DAILY [facility] Stop: 04/06/21 09:03 Last Admin: 04/02/21 08:46 Dose: 1 mls/min Documented by: Midazolam HCl (Versed) 125 mg in 250 mls @ 12 mls/hr IV .[id number] [facility]; Protocol Stop: 04/29/21 09:14 Last Titration: 04/02/21 09:31 Dose: 6 mg/hr, 12 mls/hr Documented by: Norepinephrine Bitartrate (Levophed/D5w) 8 mg in 508 mls @ 0 mls/hr IV .Q0M [facility]; Protocol Stop: 04/29/21 13:29 Last Titration: 04/02/21 12:16 Dose: 0.05 mcg/kg/min, 20.6 mls/hr Documented by: Propofol (Diprivan) 1,000 mg in 100 mls @ 30.375 mls/hr IV .Q3H18M [facility]; Protocol Stop: 04/03/21 09:44 Last Admin: 04/02/21 09:59 Dose: 45 mcg/kg/min, 30.4 mls/hr Documented by: Insulin Aspart (Insulin Aspart 100 Units/Ml 3 Ml Pen) 0 units SC Q4 [facility] Stop: 04/28/21 12:14 Last Admin: 04/02/21 12:15 Dose: 5 units Documented by: Lansoprazole (Lansoprazole 30 Mg Soltab) 30 mg OG BID [facility] Stop: 04/27/21 20:59 Last Admin: 04/02/21 08:41 Dose: 30 mg Documented by: Midazolam HCl (Midazolam Bolus From Bag) 2 mg IV Q60M PRN PRN Reason: Sedation Stop: 04/28/21 09:28 Last Admin: 04/01/21 21:20 Dose: 2 mg Documented by: Multi-Ingredient Cream (Artificial Tears Op Oint 3.5 Gm Tube) 1 appln OP Q4H [facility] Stop: 04/26/21 08:59 Last Admin: 04/02/21 12:15 Dose: 1 appln Documented by: Multi-Ingredient Cream (Artificial Tears Op Oint 3.5 Gm Tube) 1 appln OP Q4H [facility] Stop: 04/30/21 10:44 Last Admin: 04/02/21 09:59 Dose: 1 appln Documented by: Nutritional Formula (Peptamen Intense Vhp 1.0 Darrian 1,000 Ml Bag) 1,000 ml OG UD [facility]; Protocol Stop: 05/01/21 10:14 Last Admin: 04/02/21 02:41 Dose: 1,000 ml Documented by: Propofol (Propofol Bolus From Bag) 20 mg IV Q5M PRN PRN Reason: Sedation Stop: 04/03/21 09:40 Last Admin: 04/02/21 12:16 Dose: 20 mg Documented by: Sterile Water (Tube Feeding Water Flush) 30 ml GT Q4H [facility] Stop: 04/27/21 13:59 Last Admin: 04/02/21 08:46 Dose: 30 ml Documented by: PG Care Time/CCT Total # of Minutes Spent Total Time Spent with Patient: Total time spent is greater than 50% in coordination of care (as documented) at patient's floor/unit and/or counseling patient: Coding Level of Care Code 58306 Subseq Hosp Care Lvl 2 Diagnoses Acute respiratory failure with hypoxia J96.01 Pneumonia due to COVID-19 virus U07.1; J12.82 Pneumomediastinum J98.2 ROSARIO (acute kidney injury) N17.9 Bradycardia R00.1 Transaminitis R74.01 Hypokalemia E87.6 Uvular hypertrophy K13.79 BPH loc w urin obs/LUTS N40.1 Epistaxis R04.0 Elevated lipase R74.8 Hypotension I95.9 Fever R50.9
[2021-04-02] MEDS: MIDAZOLAM BOLUS FROM BAG IV PRN (12:45)
[2021-04-02] MEDS ORDERED: FUROSEMIDE 20 MG in SYRINGE 0 ML IV ONE (19:26)
[2021-04-03] MEDS: INSULIN ASPART 100 UNITS/ML 3 ML PEN SC SCH ×6 (00:04→20:27)
[2021-04-03] MEDS: fentaNYL citrate 2,500 MCG/250 ML BAG IV SCH ×2 (00:22→14:10)
[2021-04-03] MEDS: propofoL 1,000 MG/100 ML VIAL IV SCH ×7 (02:18→20:09)
[2021-04-03] MEDS: ARTIFICIAL TEARS OP OINT 3.5 GM TUBE OP SCH ×12 (02:24→23:19)
[2021-04-03] MEDS: TUBE FEEDING WATER FLUSH GT SCH ×6 (02:24→23:19)
[2021-04-03] MEDS: fentaNYL DRIP 1,250 MCG/250 ML BAG IV SCH ×2 (05:11→10:09)
[2021-04-03 05:29] LABS: iSTAT Art Bld Gas pCO2 Correct 51 mmHg (35-46); iSTAT Art Bld Gas pH Corrected 7.363 (7.35-7.45); iSTAT Arterial Blood Gas HCO3 29 meg/L (19-24); iSTAT Arterial Blood Gas pCO2 51 mmHg (35-46); iSTAT Arterial Blood Gas pH 7.37 (7.35-7.45); iSTAT Arterial Blood Gas pO2 66 mmHg (80-95); iSTAT Arterial Blood Gas pO2 C 67; iSTAT Carbon Dioxide 31 mmol/L (24-31); iSTAT Hematocrit 33 % (42-52); iSTAT Hemoglobin 11.2 g/dl (14.0-18.0); iSTAT Potassium 3.8 mmol/L (3.3-5.0); iSTAT Site Art Line; iSTAT Sodium 140 mmol/L (135-144)
[2021-04-03 05:51] LABS: Eosinophils # (auto) 0.03 K/uL (0-0.5); Eosinophils % (auto) 0.2 %; Hematocrit (blood only) 35.3 % (42-52); Immature Granulocytes # (auto) 0.07 K/uL (0.00-0.02); Immature Granulocytes % (auto) 0.6 %; Lymphocytes # (auto) 0.83 K/uL (1.2-3.4); Lymphocytes % (auto) 6.6 %; Mean Corpuscular Hemoglobin 31.2 pg (25-34); Mean Corpuscular Volume 91.7 fL (80-100); Mean Platelet Volume 10.3 fL (7.4-10.4); Monocytes # (auto) 0.81 K/uL (0.11-0.59); Monocytes % (auto) 6.5 %; Neutrophils % (auto) 86.1 %; Platelet Count 202 K/uL (130-400); RDW Coefficient of Variation 13.8 % (11.5-14.5); RDW Standard Deviation 45.7 fL (36.4-46.3); Red Blood Count 3.85 M/uL (4.7-6.1); White Blood Count 12.54 K/uL (4.8-10.8)
[2021-04-03 06:08] LABS: BUN Creatinine Ratio 39.4 (10-20); Calcium 8.3 mg/dl (8.5-10.1); Creatinine Clr Calc Pharmacy 78.8 ml/min; Est GFR (African American) 72.8 ml/min; Est GFR (Non-African American) 62.8 ml/min; Magnesium 2.8 mg/dl (1.8-2.4); Potassium 3.8 mmol/L (3.5-5.1)
[2021-04-03 06:10] LABS: Phosphorus 3.4 mg/dl (2.5-4.9)
--- NOTE | 2021-04-03 06:31 | Electrocardiogram Report ---
Test Reason : Blood Pressure : / mmHG Vent. Rate : 088 BPM Atrial Rate : 088 BPM P-R Int : 136 ms QRS Dur : 100 ms QT Int : 412 ms P-R-T Axes : 037 -19 173 degrees QTc Int : 498 ms Poor data quality, interpretation may be adversely affected Normal sinus rhythm T wave abnormality, consider lateral ischemia Prolonged QT Abnormal ECG When compared with ECG of 01-APR-2021 04:19, T wave inversion less evident in Inferior leads QT has shortened Confirmed by Ángel Hickman ([id number]) on 04/03/2021 6:30:44 AM Referred By: REFERRED SELF Confirmed By:Ángel Hickman
--- NOTE | 2021-04-03 06:49 | XRay Report ---
XR chest 1V portable CLINICAL HISTORY: f/u COMPARISON STUDY: Chest radiograph April 02, 2021. FINDINGS: Tip of endotracheal tube is 2.3 cm above the jaguar. Tip of nasogastric tube is below the l ower aspect of this image but at least within the gastric antrum. Right subclavian central line remai ns in place. There is no pneumothorax. No pleural effusion is identified. Cardiomediastinal silhouett e is stable. Extensive bilateral airspace opacities are similar to prior exam. IMPRESSION: 1. Satisfactory positioning of lines and tubes. 2. No change in extensive bilateral airspace opacities. ACT 112: Negative or not required by law. Electronically signed by: Floyd Neal M.D. 04/03/2021 6:48 AM
--- NOTE | 2021-04-03 07:18 | Hospitalist Progress Note ---
Date of Service April 03, 2021 Assessment & Plan (1) Acute respiratory failure with hypoxia: Plan: due to COVID 19 pneumonia, bilateral infiltrates on CXR Was requiring prone positioning and BiPAP while awake, but then weaned down to wall high flow nasal cannula at 11-15 L on 03/23 However, on 03/24 worsened again was placed back on Vapotherm high flow nasal cannula On 03/25, requiring higher amounts of oxygen at 40 L and up to 80 % FiO2 to maintain pulse ox 90-91% On 03/26 switched to Ventilator HFNC at 60L, 100% FiO2 to keep POx>88%---> continued to decompensate on the morning of 03/27 and was intubated and proned Pneumomediastinum is now resolved on x-ray Status post tocilizumab on 03/21 CRP trending downward when last checked Continue dexamethasone however on 03/28 was increased to high-dose with 20 mg daily, plan for 5 days then 10mg for 5 days IV Lasix as needed to keep in a negative fluid balance, 40mg IV given again today Ventilator management as per whistle punk FiO2 40%, PEEP 10, TV 520mL still requiring high levels of sedation, but no vecuronium since 1pm yesterday currently on Versed Fentanyl, Propofol Gabapentin 100mg TID Methadone was discontinued due to prolonged QTc Dr. Figueroa suspects he will need tracheostomy in next few days if he does not improve [employer] contacted [facility] about ECMO-no beds available on 03/28. Kate said that he is not a candidate for ECMO at their facility as age greater than 55 and was on high flow nasal cannula for greater than 3 days (2) Fever: Plan: started on 04/02 UA is clean CXR with persistent infiltrates blood cultures - no growth procalcitonin is < 1 start on Zosyn empirically (3) Pneumonia due to COVID-19 virus: Plan: Symptom onset: approximately March 09, says he just got dyspnea and cough a few days prior to admission-became really short of breath on 03/20 so he came to the ED bilateral infiltrates on CXR, CRP 18 and then decreased after receiving Tocilizumab and dexamethasone Continue dexamethasone as above-now day 10 overall but on high- 20mg IV daily dose Completed 5-day course of Rocephin/Zithromax too far along in course of illness to give Remdesivir, no benefit Received Tocilizumab on 03/21 CTA chest: no pulmonary embolism, just shows diffuse infiltrates initially CXR still with bilateral infiltrates still requiring mechanical ventilation, might need tracheostomy (4) Pneumomediastinum: Plan: Now resolved (5) ROSARIO (acute kidney injury): Plan: - Baseline creatinine less than 1, acutely elevated to 1.61 on admission and now back to normal continue to monitor daily Lasix 40mg IV again today, want negative fluid balance (6) Bradycardia: Plan: with sinus terry initially while on BIPAP Now rates are normal to tachycardic (7) Transaminitis: Plan: resolved (8) Hypokalemia: Plan: Resolved with potassium replacement (9) BPH loc w urin obs/LUTS: Plan: Rogers catheter back in place after intubation (10) Hypotension: Plan: BP can drop with sedation Levophed PRN Plan: DVT prophylaxis: High-dose Lovenox, SCDs Disposition: Continued stay in ICU, very guarded prognosis CODE STATUS: [employer] discussed care with she is aware of his very guarded prognosis Admission and Anticipated Discharge Date Admission Date: March 20, 2021 Subjective continues to be be intubated has not required paralytic since 1pm on 04/02/21, could be a good sign Dr. Figueroa decreased FiO2, increased tital volume to 520, will try to decrease PEEP as tolerated reviewed labs, Procalcitonin 0.6 and with fevers, started on Zosyn trickle tube feeds resumed since off paralytics Review of Systems Review of Systems: Unobtainable due to cognitive status and Unobtainable due to endotracheal tube Physical Exam Constitutional: well developed, + obese and + mechanically ventilated; no acute distress Neck: trachea midline, no thyromegaly Respiratory: symmetric chest movement (ventilated, supine position); no respiratory distress and no labored breathing Auscultation: no crackles, no rales, no rhonchi and no wheezes Cardiovascular: RRR, no murmur, no edema Gastrointestinal (Abdomen): normal bowel sounds, soft, nontender, no hepatosplenomegaly Musculoskeletal: Head/Neck/Chest: normocephalic, head atraumatic and neck supple Extremities: extremities normal to inspection; no cyanosis, no clubbing and no petechiae Skin: no rashes, warm and dry Neurologic: + obtunded; no focal motor deficits Psychiatric: Orientation: + not alert Results & Data Results & Data ([facility]) Vital Signs (Past 12 Hours) Vital Signs Temp Pulse Resp BP Pulse Ox 04/03/21 06:01 37.2 C 78 114/63 91 04/03/21 05:31 37.2 C 78 118/69 91 04/03/21 05:01 37.3 C 77 126/72 92 04/03/21 04:31 37.3 C 85 146/83 H 88 L 04/03/21 04:01 37.4 C 73 139/76 92 04/03/21 03:41 72 20 92 04/03/21 03:31 37.4 C 68 134/79 91 04/03/21 03:01 37.4 C 68 129/67 94 04/03/21 02:31 37.5 C 70 124/72 94 04/03/21 02:01 37.5 C 69 130/68 94 04/03/21 01:31 37.4 C 69 129/70 04/03/21 01:01 37.5 C 70 125/71 04/03/21 00:31 37.5 C 72 128/73 93 04/03/21 00:01 37.6 C H 69 125/70 04/02/21 23:31 37.6 C H 72 121/71 04/02/21 23:17 71 04/02/21 23:01 37.5 C 71 122/68 04/02/21 22:50 72 25 H 92 04/02/21 22:31 37.6 C H 73 121/71 04/02/21 22:01 37.5 C 72 121/71 04/02/21 21:31 37.5 C 74 126/68 04/02/21 21:01 37.5 C 74 125/73 92 04/02/21 20:31 37.5 C 73 123/71 93 04/02/21 20:01 37.5 C 73 125/73 93 04/02/21 19:52 74 04/02/21 19:40 73 23 93 04/02/21 19:31 37.6 C H 73 127/73 93 Laboratory Results Laboratory Results - last 24 hr 04/02/21 04/02/21 04/02/21 05:00 07:33 08:09 WBC RBC Hgb POC Hgb Hct POC Hct MCV MCH MCHC RDW Std Deviation RDW Coeff of Sujit Plt Count MPV Immature Gran % (Auto) Neut % (Auto) Lymph % (Auto) [place] % (Auto) Eos % (Auto) Baso % (Auto) Neut # (Auto) Lymph # (Auto) [place] # (Auto) Eos # (Auto) Baso # (Auto) Immature Gran # (Auto) Heparin Anti-Xa, LM Wt Sample Site POC pH POC pCO2 POC pO2 POC HCO3 POC Total CO2 POC Base Excess ABG pH (Temp Correct) ABG pCO2 (Temp Corrct POC ABG pO2 at Pt Temp POC ABG O2 Sat Sher Test POC Sodium Sodium POC Potassium Potassium Chloride Carbon Dioxide Anion Gap BUN Creatinine Est Cr Clr Drug Dosing Est GFR ( Amer) Est GFR (Non-Af Amer) BUN/Creatinine Ratio Glucose POC Glucose 145 H Calcium Phosphorus Magnesium Troponin I 0.024 Procalcitonin 0.49 Urine Color Urine Appearance Urine pH Ur Specific [place] Urine Protein Urine Glucose (UA) Urine Ketones Urine Blood Urine Nitrite Urine Bilirubin Urine Urobilinogen Ur Leukocyte Esterase Urine WBC (Auto) Urine RBC (Auto) U Hyaline Cast (Auto) U Epithel Cells (Auto) Urine Bacteria (Auto) Ur Renal Epithelial Cell Uric Acid Crystals Urine Yeast Nasal Screen MRSA (PCR) 04/02/21 04/02/21 04/02/21 09:03 10:00 11:59 WBC RBC Hgb POC Hgb Hct POC Hct MCV MCH MCHC RDW Std Deviation RDW Coeff of Sujit Plt Count MPV Immature Gran % (Auto) Neut % (Auto) Lymph % (Auto) [place] % (Auto) Eos % (Auto) Baso % (Auto) Neut # (Auto) Lymph # (Auto) [place] # (Auto) Eos # (Auto) Baso # (Auto) Immature Gran # (Auto) Heparin Anti-Xa, LM Wt Sample Site POC pH POC pCO2 POC pO2 POC HCO3 POC Total CO2 POC Base Excess ABG pH (Temp Correct) ABG pCO2 (Temp Corrct POC ABG pO2 at Pt Temp POC ABG O2 Sat Sher Test POC Sodium Sodium POC Potassium Potassium Chloride Carbon Dioxide Anion Gap BUN Creatinine Est Cr Clr Drug Dosing Est GFR ( Amer) Est GFR (Non-Af Amer) BUN/Creatinine Ratio Glucose POC Glucose 202 H Calcium Phosphorus Magnesium Troponin I Procalcitonin Urine Color Dark Yellow Urine Appearance Cloudy A Urine pH 5.0 Ur Specific [place] 1.022 Urine Protein Trace H Urine Glucose (UA) Negative Urine Ketones Negative Urine Blood Negative Urine Nitrite Negative Urine Bilirubin Negative Urine Urobilinogen Negative Ur Leukocyte Esterase Negative Urine WBC (Auto) 1-5 Urine RBC (Auto) 0-4 U Hyaline Cast (Auto) 1-5 U Epithel Cells (Auto) 5-10 H Urine Bacteria (Auto) Negative Ur Renal Epithelial Cell Not Reportable Uric Acid Crystals Present A Urine Yeast Not Reportable Nasal Screen MRSA (PCR) Negative 04/02/21 04/02/21 04/02/21 12:54 16:10 20:16 WBC RBC Hgb POC Hgb Hct POC Hct MCV MCH MCHC RDW Std Deviation RDW Coeff of Sujit Plt Count MPV Immature Gran % (Auto) Neut % (Auto) Lymph % (Auto) [place] % (Auto) Eos % (Auto) Baso % (Auto) Neut # (Auto) Lymph # (Auto) [place] # (Auto) Eos # (Auto) Baso # (Auto) Immature Gran # (Auto) Heparin Anti-Xa, LM Wt 0.40 Sample Site POC pH POC pCO2 POC pO2 POC HCO3 POC Total CO2 POC Base Excess ABG pH (Temp Correct) ABG pCO2 (Temp Corrct POC ABG pO2 at Pt Temp POC ABG O2 Sat Sher Test POC Sodium Sodium POC Potassium Potassium Chloride Carbon Dioxide Anion Gap BUN Creatinine Est Cr Clr Drug Dosing Est GFR ( Amer) Est GFR (Non-Af Amer) BUN/Creatinine Ratio Glucose POC Glucose 233 H 211 H Calcium Phosphorus Magnesium Troponin I Procalcitonin Urine Color Urine Appearance Urine pH Ur Specific [place] Urine Protein Urine Glucose (UA) Urine Ketones Urine Blood Urine Nitrite Urine Bilirubin Urine Urobilinogen Ur Leukocyte Esterase Urine WBC (Auto) Urine RBC (Auto) U Hyaline Cast (Auto) U Epithel Cells (Auto) Urine Bacteria (Auto) Ur Renal Epithelial Cell Uric Acid Crystals Urine Yeast Nasal Screen MRSA (PCR) 04/02/21 04/03/21 04/03/21 23:54 04:06 05:09 WBC RBC Hgb POC Hgb 11.2 L Hct POC Hct 33 L MCV MCH MCHC RDW Std Deviation RDW Coeff of Sujit Plt Count MPV Immature Gran % (Auto) Neut % (Auto) Lymph % (Auto) [place] % (Auto) Eos % (Auto) Baso % (Auto) Neut # (Auto) Lymph # (Auto) [place] # (Auto) Eos # (Auto) Baso # (Auto) Immature Gran # (Auto) Heparin Anti-Xa, LM Wt Sample Site Art Line POC pH 7.37 POC pCO2 51 H POC pO2 66 L POC HCO3 29 H POC Total CO2 31 POC Base Excess 4.0 H ABG pH (Temp Correct) 7.363 ABG pCO2 (Temp Corrct 51 H POC ABG pO2 at Pt Temp 67 POC ABG O2 Sat 92.0 Sher Test NA POC Sodium 140 Sodium POC Potassium 3.8 Potassium Chloride Carbon Dioxide Anion Gap BUN Creatinine Est Cr Clr Drug Dosing Est GFR ( Amer) Est GFR (Non-Af Amer) BUN/Creatinine Ratio Glucose POC Glucose 182 H 143 H Calcium Phosphorus Magnesium Troponin I Procalcitonin Urine Color Urine Appearance Urine pH Ur Specific [place] Urine Protein Urine Glucose (UA) Urine Ketones Urine Blood Urine Nitrite Urine Bilirubin Urine Urobilinogen Ur Leukocyte Esterase Urine WBC (Auto) Urine RBC (Auto) U Hyaline Cast (Auto) U Epithel Cells (Auto) Urine Bacteria (Auto) Ur Renal Epithelial Cell Uric Acid Crystals Urine Yeast Nasal Screen MRSA (PCR) 04/03/21 04/03/21 04/03/21 05:24 05:24 05:24 WBC 12.54 H RBC 3.85 L Hgb 12.0 L POC Hgb Hct 35.3 L POC Hct MCV 91.7 MCH 31.2 MCHC 34.0 RDW Std Deviation 45.7 RDW Coeff of Sujit 13.8 Plt Count 202 MPV 10.3 Immature Gran % (Auto) 0.6 Neut % (Auto) 86.1 Lymph % (Auto) 6.6 [place] % (Auto) 6.5 Eos % (Auto) 0.2 Baso % (Auto) 0.0 Neut # (Auto) 10.80 H Lymph # (Auto) 0.83 L [place] # (Auto) 0.81 H Eos # (Auto) 0.03 Baso # (Auto) 0.00 Immature Gran # (Auto) 0.07 H Heparin Anti-Xa, LM Wt Sample Site POC pH POC pCO2 POC pO2 POC HCO3 POC Total CO2 POC Base Excess ABG pH (Temp Correct) ABG pCO2 (Temp Corrct POC ABG pO2 at Pt Temp POC ABG O2 Sat Sher Test POC Sodium Sodium 143 POC Potassium Potassium 3.8 Chloride 110 H Carbon Dioxide 29 Anion Gap 4.0 BUN 49 H Creatinine 1.24 Est Cr Clr Drug Dosing 78.8 Est GFR ( Amer) 72.8 Est GFR (Non-Af Amer) 62.8 BUN/Creatinine Ratio 39.4 H Glucose 137 H POC Glucose Calcium 8.3 L Phosphorus 3.4 D Magnesium 2.8 H Troponin I Procalcitonin 0.63 H Urine Color Urine Appearance Urine pH Ur Specific [place] Urine Protein Urine Glucose (UA) Urine Ketones Urine Blood Urine Nitrite Urine Bilirubin Urine Urobilinogen Ur Leukocyte Esterase Urine WBC (Auto) Urine RBC (Auto) U Hyaline Cast (Auto) U Epithel Cells (Auto) Urine Bacteria (Auto) Ur Renal Epithelial Cell Uric Acid Crystals Urine Yeast Nasal Screen MRSA (PCR) Medications Administered Current Inpatient Medications Acetaminophen (Acetaminophen 325 Mg Tab) 650 mg PO Q4H PRN PRN Reason: Pain or Fever Stop: 04/19/21 16:45 Last Admin: 04/02/21 06:23 Dose: 650 mg Documented by: Albuterol (Albut/Ipratrop 3mg/0.5mg Neb 3 Ml Vial) 3 ml NEB Q4R PRN PRN Reason: Shortness of Breath/Wheezing Stop: 04/19/21 16:45 Amlodipine Besylate (Amlodipine Besylate 5 Mg Tab) 10 mg PO QAM [facility] Stop: 04/29/21 08:59 Last Admin: 03/31/21 08:20 Dose: 10 mg Documented by: Enoxaparin Sodium (Enoxaparin Inj 40 Mg/0.4 Ml Syr) 40 mg SQ Q12 [facility] Stop: 05/01/21 20:59 Last Admin: 04/02/21 19:59 Dose: 40 mg Documented by: Fentanyl Citrate (Fentanyl Bolus From Bag) 50 mcg IV Q60M PRN PRN Reason: Pain or Agitation Stop: 04/10/21 10:05 Last Admin: 04/03/21 05:00 Dose: 50 mcg Documented by: Gabapentin (Gabapentin 250 Mg/5 Ml 470 Ml Btl) 100 mg PO TID [facility] Stop: 05/02/21 13:59 Last Admin: 04/02/21 19:59 Dose: 100 mg Documented by: Hydralazine HCl (Hydralazine Hcl 20 Mg/Ml Vial) 10 mg IV Q6H PRN PRN Reason: SBP GREATER THAN 160 Stop: 04/29/21 07:43 Fentanyl Citrate (Fentanyl Drip) 1,250 mcg in 250 mls @ 40 mls/hr IV .Q6H15M MARCIA; Protocol Stop: 04/10/21 10:05 Last Admin: 04/03/21 05:11 Dose: Not Given Documented by: Dexamethasone 10 mg/ Syringe 2.5 mls @ 1 mls/min IV DAILY MARCIA Stop: 04/06/21 09:03 Last Admin: 04/02/21 08:46 Dose: 1 mls/min Documented by: Midazolam HCl (Versed) 125 mg in 250 mls @ 8 mls/hr IV .Q08V14P MARCIA; Protocol Stop: 04/29/21 09:14 Last Titration: 04/03/21 07:00 Dose: 4 mg/hr, 8 mls/hr Documented by: Norepinephrine Bitartrate (Levophed/D5w) 8 mg in 508 mls @ 0 mls/hr IV .Q0M MARCIA; Protocol Stop: 04/29/21 13:29 Last Titration: 04/03/21 07:00 Dose: 0 mcg/kg/min, 0 mls/hr Documented by: Propofol (Diprivan) 1,000 mg in 100 mls @ 20.25 mls/hr IV .Q4H57M MARCIA; Protocol Stop: 04/03/21 09:44 Last Titration: 04/03/21 07:00 Dose: 30 mcg/kg/min, 20.3 mls/hr Documented by: Fentanyl Citrate (Fentanyl Citrate) 2,500 mcg in 250 mls @ 0 mls/hr IV .Q0M MARCIA; Protocol Stop: 04/16/21 19:29 Last Titration: 04/03/21 07:00 Dose: 200 mcg/hr, 20 mls/hr Documented by: Insulin Aspart (Insulin Aspart 100 Units/Ml 3 Ml Pen) 0 units SC Q4 MARCIA Stop: 04/28/21 12:14 Last Admin: 04/03/21 04:10 Dose: 1 units Documented by: Lansoprazole (Lansoprazole 30 Mg Soltab) 30 mg OG BID [facility] Stop: 04/27/21 20:59 Last Admin: 04/02/21 19:59 Dose: 30 mg Documented by: Midazolam HCl (Midazolam Bolus From Bag) 2 mg IV Q60M PRN PRN Reason: Sedation Stop: 04/28/21 09:28 Last Admin: 04/02/21 12:45 Dose: 2 mg Documented by: Multi-Ingredient Cream (Artificial Tears Op Oint 3.5 Gm Tube) 1 appln OP Q4H MARCIA Stop: 04/26/21 08:59 Last Admin: 04/03/21 05:09 Dose: 1 appln Documented by: Multi-Ingredient Cream (Artificial Tears Op Oint 3.5 Gm Tube) 1 appln OP Q4H MARCIA Stop: 04/30/21 10:44 Last Admin: 04/03/21 05:09 Dose: 1 appln Documented by: Nutritional Formula (Peptamen Intense Vhp 1.0 Darrian 1,000 Ml Bag) 1,000 ml OG UD [facility]; Protocol Stop: 05/01/21 10:14 Last Admin: 04/02/21 02:41 Dose: 1,000 ml Documented by: Propofol (Propofol Bolus From Bag) 20 mg IV Q5M PRN PRN Reason: Sedation Stop: 04/03/21 09:40 Last Admin: 04/02/21 12:16 Dose: 20 mg Documented by: Sterile Water (Tube Feeding Water Flush) 30 ml GT Q4H [facility] Stop: 04/27/21 13:59 Last Admin: 04/03/21 05:09 Dose: 30 ml Documented by: PG Care Time/CCT Total # of Minutes Spent Total Time Spent with Patient: Total time spent is greater than 50% in coordination of care (as documented) at patient's floor/unit and/or counseling patient: Coding Level of Care Code 61856 Subseq Hosp Care Lvl 2 Diagnoses Acute respiratory failure with hypoxia J96.01 Fever R50.9 Pneumonia due to COVID-19 virus U07.1; J12.82 Pneumomediastinum J98.2 ROSARIO (acute kidney injury) N17.9 Bradycardia R00.1 Transaminitis R74.01 Hypokalemia E87.6 BPH loc w urin obs/LUTS N40.1 Hypotension I95.9
[2021-04-03] MEDS: ENOXAPARIN INJ 40 MG/0.4 ML SYR SQ SCH ×2 (07:36→20:09)
[2021-04-03] MEDS: LANSOPRAZOLE 30 MG SOLTAB OG SCH ×2 (07:36→20:10)
[2021-04-03] MEDS: dexAMETHasone 10 MG in SYRINGE 0 ML IV SCH (07:38)
[2021-04-03] MEDS: GABAPENTIN 250 MG/5 ML 470 ML BTL PO SCH ×3 (07:38→20:11)
[2021-04-03] MEDS ORDERED: PIPERACILL/TAZOBAC CONSULT ACTIVE PRN (07:49)
[2021-04-03] MEDS ORDERED: PIPERACILLIN/TAZOBACTAM 3.375 GM in DEXTROSE 5% 100 ML IV SCH (08:00)
[2021-04-03] MEDS ORDERED: PIPERACILLIN/TAZOBACTAM 4.5 GM in DEXTROSE 5% 100 ML IV ONE (08:30)
[2021-04-03] MEDS: NOREPINEPHRINE/D5W 8 MG/508 ML BAG IV SCH (10:07)
[2021-04-03] MEDS: MIDAZOLAM HCL 125 MG/250 ML BAG IV SCH (10:07)
--- NOTE | 2021-04-03 10:09 | Critical Care Progress Note ---
Date of Service April 03, 2021 Assessment & Plan (1) Acute respiratory failure with hypoxia: (2) Pneumonia due to COVID-19 virus: (3) Transaminitis: (4) Pneumomediastinum: Plan: Reason Critically Ill: 61-year-old male with past medical history of hypertension admitted to the hospital for COVID-19 pneumonia and acute hypoxic respiratory failure, intubated 03/27/2021 PLAN: Neuro: Neuromuscular blockade with cisatracurium --day 4 stopped 03/31/21. Patient getting as needed vecuronium -Bis monitoring Propofol, fentanyl and midazolam -Midazolam added 03/29/2021 as patient was very restless CT Head 04/02/21: Negative for any acute abnormality. Resp: --VDRF with acute hypoxic respiratory failure Secondary to multilobar COVID-19 pneumonia COVID-19 PCR positive 03/16/2021 CRP 18.2 --> 9.75 --> 1.63 S/p Tocilizumab 03/21/2021 Intubated 03/27/2021 Continue with lung protective ventilation High PEEP, low tidal volume to keep Plateau < 30 with permissive hypercapnea if need be. Monitor ABGs ARDS net high-dose steroid protocol Kate as well as [facility] team where contacted on 03/28/2021, unfortunately he is not a candidate from either side. --Pneumomediastinum--> resolved No signs of pneumothorax on the chest x-ray CV: Intermittent hypotension likely sec to sedation c/w vasopressor as needed to keep MAP>65 Fluids/Renal: Goal to remain net negative -Diuresis as needed ID: New onset fever 04/02/2021 -Septic work-up ordered --> negative to date -Nasal MRSA -ve -Procalcitonin 0.49 --> 0.63 GI/Nutrition: Transaminitis -Continue to follow c/w trickle tube feeds Heme: Leukocytosis Continue to monitor Endocrine: ICU hyperglycemia protocol --Prophylaxis VTE: Lovenox GI: Lansoprazole Lines: Left radial, right subclavian, positive Rogers Diet: Trickle tube feeds Plan: In/out: +420, urine output 2130 ABG 7.37/51/66 on 10 of PEEP, 50%. I went down on FiO2 40% and increase the tidal volume to 520. Next step would be to go down on PEEP to 8 Last dose of vecuronium was 1 PM 04/02/21. Patient is not having significant hiccups/double triggering. Would hold off on any paralytics Given the patient is off paralytics now I will increase his tube feeds. Given the procalcitonin is on the increasing trend and patient is spiking fever I will start him on Zosyn. Nasal MRSA is negative Gabapentin 100 mg twice daily will be increased to 100 mg 3 times daily 40 mg of Lasix today. 20 mEq of potassium given Patient's Mrs. Emperatriz Neri [phone] I have personally spent 41 minutes of critical care time in the direct management of this patient. This is a life/limb threatening event. This includes time spent evaluating patient, direct bedside care, chart review, placing orders, interpretation of diagnostic studies, discussion with consultants, patient, and family members, as well as other required patient management activities. This time is exclusive of all separately billable procedures, and teaching time and separate from and in addition to any other critical care service time. Please note the above document was generated using voice recognition software. It may contain grammatical, syntax or spelling errors. Admission and Anticipated Discharge Date Admission Date: March 20, 2021 Subjective Patient seen and examined at bedside. No acute distress, no events noted overnight. Last dose of albumin was 1 PM 04/02/2021 He does still remove double to getting with pickups but it has decreased in frequency. He was on propofol 35, midazolam 3.5 and fentanyl 175 He was breathing over the vent. T-max 37.7 Review of Systems Review of Systems: Unobtainable due to endotracheal tube Physical Exam Physical Exam: Constitutional: Intubated, sedated HEENT: positive ETT, PERRLA Respiratory system: Decreased air entry bilaterally, no wheeze, rhonchi, positive crackles bilateral lower lobes CVS: S1-S2 positive, no murmurs or gallops Abdomen: Soft, nontender, nondistended, positive bowel sounds x4, obese Extremities: +2 pulses bilaterally radialis/ dorsalis pedis, no cyanosis, +2 pitting edema Neuro: RASS -2, breathing over the vent, positive corneal, positive gag, still double triggering Psych: Unable to assess G/U: Positive Rogers Results & Data Results & Data ([facility]) Vital Signs (Past 12 Hours) Vital Signs Temp Pulse Resp BP Pulse Ox 04/03/21 08:01 36.9 C 72 116/66 94 04/03/21 07:39 37.0 C 73 6 L 111/66 93 04/03/21 07:15 74 21 93 04/03/21 07:01 37.0 C 74 111/66 92 04/03/21 07:00 76 04/03/21 06:01 37.2 C 78 114/63 91 04/03/21 05:31 37.2 C 78 118/69 91 04/03/21 05:01 37.3 C 77 126/72 92 04/03/21 04:31 37.3 C 85 146/83 H 88 L 04/03/21 04:01 37.4 C 73 139/76 92 04/03/21 03:41 72 20 92 04/03/21 03:31 37.4 C 68 134/79 91 04/03/21 03:01 37.4 C 68 129/67 94 04/03/21 02:31 37.5 C 70 124/72 94 04/03/21 02:01 37.5 C 69 130/68 94 04/03/21 01:31 37.4 C 69 129/70 93 04/03/21 01:01 37.5 C 70 125/71 93 04/03/21 00:31 37.5 C 72 128/73 93 04/03/21 00:01 37.6 C H 69 125/70 93 04/02/21 23:31 37.6 C H 72 121/71 93 04/02/21 23:17 71 04/02/21 23:01 37.5 C 71 122/68 04/02/21 22:50 72 25 H 92 04/02/21 22:31 37.6 C H 73 121/71 93 04/02/21 22:01 37.5 C 72 121/71 93 04/03/21 05:24 04/03/21 05:24 Coding Level of Care Code Critical Care 1st 30-74 mins Diagnoses Acute respiratory failure with hypoxia J96.01 Pneumonia due to COVID-19 virus U07.1; J12.82 Transaminitis R74.01 Pneumomediastinum J98.2 Time Spent (min) 41
[2021-04-03] MEDS ORDERED: POTASSIUM CHLORIDE / WTR 20 MEQ/100 ML PLCT IV ONE (10:15)
[2021-04-03] MEDS: MIDAZOLAM BOLUS FROM BAG IV PRN ×3 (11:03→21:25)
[2021-04-03] MEDS ORDERED: STAT IV Infusion **Titration per Protocol STA (11:35)
[2021-04-03] MEDS: hydrALAZINE HCL 20 MG/ML VIAL IV PRN (12:02)
--- NOTE | 2021-04-03 12:16 | Electrocardiogram Report ---
Test Reason : Blood Pressure : / mmHG Vent. Rate : 074 BPM Atrial Rate : 074 BPM P-R Int : 156 ms QRS Dur : 106 ms QT Int : 446 ms P-R-T Axes : 009 -12 207 degrees QTc Int : 495 ms Normal sinus rhythm Prolonged QT Abnormal ECG When compared with ECG of 02-APR-2021 04:40, T wave inversion more evident in Inferior leads Confirmed by Anatoliy Connor ([id number]) on 04/03/2021 12:15:53 PM Referred By: REFERRED SELF Confirmed By:Yunier Connor
[2021-04-03] MEDS: PROPOFOL BOLUS FROM BAG IV PRN ×3 (12:25→22:10)
[2021-04-03] MEDS: PIPERACILLIN/TAZOBACTAM 4.5 GM in DEXTROSE 5% 100 ML IV SCH ×2 (14:40→20:11)
[2021-04-03] MEDS: SODIUM CHLORIDE 0.9% 1000ML 1,000 ML IV SCH (15:48)
[2021-04-03] MEDS ORDERED: FUROSEMIDE 20 MG in SYRINGE 0 ML IV ONE (19:15)
[2021-04-04] MEDS: MIDAZOLAM HCL 125 MG/250 ML BAG IV SCH (00:30)
[2021-04-04] MEDS: propofoL 1,000 MG/100 ML VIAL IV SCH ×5 (00:32→18:22)
[2021-04-04] MEDS: INSULIN ASPART 100 UNITS/ML 3 ML PEN SC SCH ×6 (00:34→20:32)
[2021-04-04] MEDS: fentaNYL citrate 2,500 MCG/250 ML BAG IV SCH ×2 (00:39→13:22)
[2021-04-04] MEDS: ARTIFICIAL TEARS OP OINT 3.5 GM TUBE OP SCH ×11 (00:52→20:06)
[2021-04-04] MEDS: PROPOFOL BOLUS FROM BAG IV PRN ×10 (01:00→15:38)
[2021-04-04] MEDS: MIDAZOLAM BOLUS FROM BAG IV PRN ×10 (01:00→15:38)
[2021-04-04] MEDS: TUBE FEEDING WATER FLUSH GT SCH ×5 (01:33→17:14)
[2021-04-04 04:59] LABS: Eosinophils # (auto) 0.04 K/uL (0-0.5); Eosinophils % (auto) 0.4 %; Hematocrit (blood only) 32.1 % (42-52); Hemoglobin 10.7 g/dL (14.0-18.0); Immature Granulocytes # (auto) 0.05 K/uL (0.00-0.02); Immature Granulocytes % (auto) 0.5 %; Lymphocytes # (auto) 1.18 K/uL (1.2-3.4); Lymphocytes % (auto) 11.9 %; Mean Corpuscular Hemoglobin 30.4 pg (25-34); Mean Corpuscular Hgb Conc 33.3 g/dL (32-36); Mean Corpuscular Volume 91.2 fL (80-100); Mean Platelet Volume 9.7 fL (7.4-10.4); Monocytes # (auto) 0.69 K/uL (0.11-0.59); Neutrophils # (auto) 7.94 K/uL (1.4-6.5); Neutrophils % (auto) 80.2 %; Platelet Count 201 K/uL (130-400); RDW Standard Deviation 46.3 fL (36.4-46.3); Red Blood Count 3.52 M/uL (4.7-6.1)
[2021-04-04] MEDS ORDERED: VECURONIUM BROMIDE 10 MG VIAL IV STA ×2 (05:10→19:59)
[2021-04-04 05:11] LABS: iSTAT Arterial Blood Gas HCO3 28 meg/L (19-24); iSTAT Arterial Blood Gas pCO2 45 mmHg (35-46); iSTAT Arterial Blood Gas pO2 72 mmHg (80-95); iSTAT Carbon Dioxide 29 mmol/L (24-31); iSTAT FiO2 50 %; iSTAT Site Art Line
[2021-04-04] MEDS ORDERED: VECURONIUM BROMIDE 10 MG VIAL IV ONE ×2 (05:12→20:00)
[2021-04-04 05:19] LABS: Calcium 8.3 mg/dl (8.5-10.1); Creatinine Clr Calc Pharmacy 83.5 ml/min; Est GFR (African American) 78.1 ml/min; Est GFR (Non-African American) 67.4 ml/min; Magnesium 2.7 mg/dl (1.8-2.4); Phosphorus 2.9 mg/dl (2.5-4.9); Potassium 3.6 mmol/L (3.5-5.1)
[2021-04-04] MEDS: PIPERACILLIN/TAZOBACTAM 4.5 GM in DEXTROSE 5% 100 ML IV SCH ×3 (05:48→20:07)
--- NOTE | 2021-04-04 06:53 | XRay Report ---
XR chest 1V portable CLINICAL HISTORY: f/u COMPARISON STUDY: Chest radiograph April 03, 2021. FINDINGS: Tip of endotracheal tube is 2 cm above the jaguar. Tip of nasogastric tube is within the ga stric antrum. Right subclavian central line remains in place. Cardiomegaly is unchanged. There is no pneumothorax. There is no definite pleural effusion. Extensive bilateral airspace opacities have prog ressed. IMPRESSION: 1. Satisfactory positioning of lines and tubes. 2. Progression of extensive bilateral airspace opacities. ACT 112: Negative or not required by law. Electronically signed by: Floyd Neal M.D. 04/04/2021 6:52 AM
[2021-04-04] MEDS: ENOXAPARIN INJ 40 MG/0.4 ML SYR SQ SCH ×2 (08:05→20:06)
[2021-04-04] MEDS: LANSOPRAZOLE 30 MG SOLTAB OG SCH ×2 (08:05→20:07)
--- NOTE | 2021-04-04 08:14 | Critical Care Progress Note ---
Date of Service April 04, 2021 Assessment & Plan (1) Acute respiratory failure with hypoxia: (2) Pneumonia due to COVID-19 virus: (3) Transaminitis: (4) Pneumomediastinum: Plan: Reason Critically Ill: 61-year-old male with past medical history of hypertension admitted to the hospital for COVID-19 pneumonia and acute hypoxic respiratory failure, intubated 03/27/2021 PLAN: Neuro: Neuromuscular blockade with cisatracurium -- stopped 03/31/21. Patient getting as needed vecuronium -Bis monitoring Propofol, fentanyl and midazolam -Midazolam added 03/29/2021 as patient was very restless CT Head 04/02/21: Negative for any acute abnormality. Resp: --VDRF with acute hypoxic respiratory failure Secondary to multilobar COVID-19 pneumonia COVID-19 PCR positive 03/16/2021 CRP 18.2 --> 9.75 --> 1.63 S/p Tocilizumab 03/21/2021 Intubated 03/27/2021 -We will attempt spontaneous breathing trial if fails will strongly consider tracheostomy Continue with lung protective ventilation High PEEP, low tidal volume to keep Plateau < 30 with permissive hypercapnea if need be. Monitor ABGs ARDS net high-dose steroid protocol Kate as well as [place] ECMO team where contacted on 03/28/2021, unfortunately he is not a candidate from either side. --Pneumomediastinum--> resolved No signs of pneumothorax on the chest x-ray CV: Intermittent hypotension: Resolved likely sec to sedation c/w vasopressor as needed to keep MAP>65 Fluids/Renal: Goal to remain net negative -Diuresis as needed ID: New onset fever 04/02/2021 -Septic work-up ordered --> negative to date -Nasal MRSA -ve -Procalcitonin 0.49 --> 0.63 GI/Nutrition: Transaminitis -Continue to follow c/w trickle tube feeds Heme: Leukocytosis Continue to monitor Endocrine: ICU hyperglycemia protocol --Prophylaxis VTE: Lovenox GI: Lansoprazole Lines: Left radial, right subclavian, positive Rogers Diet: Trickle tube feeds Patient's Mrs. Emperatriz Neri [phone] Admission and Anticipated Discharge Date Admission Date: March 20, 2021 Supervising Physician Co-Signing Physician Notes I have personally spent 35 minutes of critical care time in the direct management of this patient. This is a life/limb threatening event. This includes time spent evaluating patient, direct bedside care, chart review, placing orders, interpretation of diagnostic studies, discussion with consultants, patient, and family members, as well as other required patient management activities. This time is exclusive of all separately billable procedures, and teaching time and separate from and in addition to any other critical care service time. Subjective No overnight events, currently FiO2 50% PEEP of 10 Review of Systems Review of Systems: Unobtainable due to endotracheal tube Physical Exam Physical Exam: General: Heavily sedated Skin: Warm, dry, Head: Atraumatic Ears, nose, mouth and throat: Endotracheal tube in place Cardiovascular: Normal peripheral perfusion Respiratory: Ventilator settings reviewed, coarse sounds bilaterally Gastrointestinal: Non distended Musculoskeletal: No deformity Results & Data Results & Data ([facility]) Vital Signs (Past 12 Hours) Vital Signs Temp Pulse Resp BP Pulse Ox 04/04/21 07:25 90 21 91 04/04/21 06:07 37.0 C 93 H 181/88 H 96 04/04/21 05:11 36.9 C 87 167/83 H 94 04/04/21 04:52 66 23 93 04/04/21 04:11 36.9 C 69 132/63 93 04/04/21 03:11 37.0 C 71 131/66 93 04/04/21 02:11 36.9 C 73 149/80 H 93 04/04/21 01:40 61 20 93 04/04/21 01:11 36.9 C 68 132/70 93 04/04/21 00:11 37.0 C 64 138/70 93 04/04/21 00:00 68 04/03/21 23:11 37.0 C 72 138/68 92 04/03/21 22:10 36.9 C 77 143/81 H 92 04/03/21 21:58 73 22 88 L 04/03/21 21:11 36.8 C 82 165/91 H 88 L Laboratory Results 04/04/21 04/04/21 04/04/21 Range/Units 07:36 04:57 04:47 WBC (4.8-10.8) K/uL RBC (4.7-6.1) M/uL Hgb (14.0-18.0) g/dL Hct (42-52) % MCV (80-100) fL MCH (25-34) pg MCHC (32-36) g/dL RDW Std Deviation (36.4-46.3) fL RDW Coeff of Sujit (11.5-14.5) % Plt Count (130-400) K/uL MPV (7.4-10.4) fL Immature Gran % (Auto) % Neut % (Auto) % Lymph % (Auto) % Grimes % (Auto) % Eos % (Auto) % Baso % (Auto) % Neut # (Auto) (1.4-6.5) K/uL Lymph # (Auto) (1.2-3.4) K/uL Grimes # (Auto) (0.11-0.59) K/uL Eos # (Auto) (0-0.5) K/uL Baso # (Auto) (0-0.2) K/uL Immature Gran # (Auto) (0.00-0.02) K/uL Sample Site Art Line POC pH 7.40 (7.35-7.45) POC pCO2 45 (35-46) mmHg POC pO2 72 L (80-95) mmHg POC HCO3 28 H (19-24) iraida/L POC Total CO2 29 (24-31) mmol/L POC Base Excess 3.0 H (-9-1.8) iraida/L POC ABG O2 Sat 94.0 (90-95) % Sher Test NA O2 Delivery Device Ventilator POC O2 Rate 18 Minute Ventilation 9.3 POC FiO2 50 % Tidal Volume 520 PEEP 10 Sodium (136-145) mmol/L Potassium (3.5-5.1) mmol/L Chloride (98-107) mmol/L Carbon Dioxide (21-32) mmol/L Anion Gap (3-11) BUN (7-18) mg/dl Creatinine (0.6-1.4) mg/dl Est Cr Clr Drug Dosing ml/min Est GFR ( Amer) ml/min Est GFR (Non-Af Amer) ml/min BUN/Creatinine Ratio (10-20) Glucose (70-99) mg/dl POC Glucose 131 H (70-99) mg/dl Calcium (8.5-10.1) mg/dl Phosphorus (2.5-4.9) mg/dl Magnesium (1.8-2.4) mg/dl Procalcitonin 0.38 (0-0.5) ng/ml 04/04/21 04/04/21 04/04/21 Range/Units 04:47 04:47 04:13 WBC 9.90 (4.8-10.8) K/uL RBC 3.52 L (4.7-6.1) M/uL Hgb 10.7 L (14.0-18.0) g/dL Hct 32.1 L (42-52) % MCV 91.2 (80-100) fL MCH 30.4 (25-34) pg MCHC 33.3 (32-36) g/dL RDW Std Deviation 46.3 (36.4-46.3) fL RDW Coeff of Sujit 14.0 (11.5-14.5) % Plt Count 201 (130-400) K/uL MPV 9.7 (7.4-10.4) fL Immature Gran % (Auto) 0.5 % Neut % (Auto) 80.2 % Lymph % (Auto) 11.9 % Grimes % (Auto) 7.0 % Eos % (Auto) 0.4 % Baso % (Auto) 0.0 % Neut # (Auto) 7.94 H (1.4-6.5) K/uL Lymph # (Auto) 1.18 L (1.2-3.4) K/uL Grimes # (Auto) 0.69 H (0.11-0.59) K/uL Eos # (Auto) 0.04 (0-0.5) K/uL Baso # (Auto) 0.00 (0-0.2) K/uL Immature Gran # (Auto) 0.05 H (0.00-0.02) K/uL Sample Site POC pH (7.35-7.45) POC pCO2 (35-46) mmHg POC pO2 (80-95) mmHg POC HCO3 (19-24) iraida/L POC Total CO2 (24-31) mmol/L POC Base Excess (-9-1.8) iraida/L POC ABG O2 Sat (90-95) % Sher Test O2 Delivery Device POC O2 Rate Minute Ventilation POC FiO2 % Tidal Volume PEEP Sodium 143 (136-145) mmol/L Potassium 3.6 (3.5-5.1) mmol/L Chloride 111 H (98-107) mmol/L Carbon Dioxide 29 (21-32) mmol/L Anion Gap 3.0 (3-11) BUN 53 H (7-18) mg/dl Creatinine 1.17 (0.6-1.4) mg/dl Est Cr Clr Drug Dosing 83.5 ml/min Est GFR ( Amer) 78.1 ml/min Est GFR (Non-Af Amer) 67.4 ml/min BUN/Creatinine Ratio 45.0 H (10-20) Glucose 165 H (70-99) mg/dl POC Glucose 138 H (70-99) mg/dl Calcium 8.3 L (8.5-10.1) mg/dl Phosphorus 2.9 (2.5-4.9) mg/dl Magnesium 2.7 H (1.8-2.4) mg/dl Procalcitonin (0-0.5) ng/ml 04/04/21 04/03/21 04/03/21 Range/Units 00:33 20:25 17:00 WBC (4.8-10.8) K/uL RBC (4.7-6.1) M/uL Hgb (14.0-18.0) g/dL Hct (42-52) % MCV (80-100) fL MCH (25-34) pg MCHC (32-36) g/dL RDW Std Deviation (36.4-46.3) fL RDW Coeff of Sujit (11.5-14.5) % Plt Count (130-400) K/uL MPV (7.4-10.4) fL Immature Gran % (Auto) % Neut % (Auto) % Lymph % (Auto) % Grimes % (Auto) % Eos % (Auto) % Baso % (Auto) % Neut # (Auto) (1.4-6.5) K/uL Lymph # (Auto) (1.2-3.4) K/uL Grimes # (Auto) (0.11-0.59) K/uL Eos # (Auto) (0-0.5) K/uL Baso # (Auto) (0-0.2) K/uL Immature Gran # (Auto) (0.00-0.02) K/uL Sample Site POC pH (7.35-7.45) POC pCO2 (35-46) mmHg POC pO2 (80-95) mmHg POC HCO3 (19-24) iraida/L POC Total CO2 (24-31) mmol/L POC Base Excess (-9-1.8) iraida/L POC ABG O2 Sat (90-95) % Sher Test O2 Delivery Device POC O2 Rate Minute Ventilation POC FiO2 % Tidal Volume PEEP Sodium (136-145) mmol/L Potassium (3.5-5.1) mmol/L Chloride (98-107) mmol/L Carbon Dioxide (21-32) mmol/L Anion Gap (3-11) BUN (7-18) mg/dl Creatinine (0.6-1.4) mg/dl Est Cr Clr Drug Dosing ml/min Est GFR ( Amer) ml/min Est GFR (Non-Af Amer) ml/min BUN/Creatinine Ratio (10-20) Glucose (70-99) mg/dl POC Glucose 165 H 176 H 199 H (70-99) mg/dl Calcium (8.5-10.1) mg/dl Phosphorus (2.5-4.9) mg/dl Magnesium (1.8-2.4) mg/dl Procalcitonin (0-0.5) ng/ml 04/03/21 Range/Units 12:11 WBC (4.8-10.8) K/uL RBC (4.7-6.1) M/uL Hgb (14.0-18.0) g/dL Hct (42-52) % MCV (80-100) fL MCH (25-34) pg MCHC (32-36) g/dL RDW Std Deviation (36.4-46.3) fL RDW Coeff of Sujit (11.5-14.5) % Plt Count (130-400) K/uL MPV (7.4-10.4) fL Immature Gran % (Auto) % Neut % (Auto) % Lymph % (Auto) % Grimes % (Auto) % Eos % (Auto) % Baso % (Auto) % Neut # (Auto) (1.4-6.5) K/uL Lymph # (Auto) (1.2-3.4) K/uL Grimes # (Auto) (0.11-0.59) K/uL Eos # (Auto) (0-0.5) K/uL Baso # (Auto) (0-0.2) K/uL Immature Gran # (Auto) (0.00-0.02) K/uL Sample Site POC pH (7.35-7.45) POC pCO2 (35-46) mmHg POC pO2 (80-95) mmHg POC HCO3 (19-24) iraida/L POC Total CO2 (24-31) mmol/L POC Base Excess (-9-1.8) iraida/L POC ABG O2 Sat (90-95) % Sher Test O2 Delivery Device POC O2 Rate Minute Ventilation POC FiO2 % Tidal Volume PEEP Sodium (136-145) mmol/L Potassium (3.5-5.1) mmol/L Chloride (98-107) mmol/L Carbon Dioxide (21-32) mmol/L Anion Gap (3-11) BUN (7-18) mg/dl Creatinine (0.6-1.4) mg/dl Est Cr Clr Drug Dosing ml/min Est GFR ( Amer) ml/min Est GFR (Non-Af Amer) ml/min BUN/Creatinine Ratio (10-20) Glucose (70-99) mg/dl POC Glucose 221 H (70-99) mg/dl Calcium (8.5-10.1) mg/dl Phosphorus (2.5-4.9) mg/dl Magnesium (1.8-2.4) mg/dl Procalcitonin (0-0.5) ng/ml Coding Level of Care Code Critical Care 1st 30-74 mins Diagnoses Acute respiratory failure with hypoxia J96.01 Pneumonia due to COVID-19 virus U07.1; J12.82 Transaminitis R74.01 Pneumomediastinum J98.2
[2021-04-04] MEDS: dexAMETHasone 10 MG in SYRINGE 0 ML IV SCH (09:23)
[2021-04-04] MEDS: GABAPENTIN 250 MG/5 ML 470 ML BTL PO SCH ×3 (09:23→20:06)
--- NOTE | 2021-04-04 15:00 | Hospitalist Progress Note ---
Date of Service April 04, 2021 Assessment & Plan (1) Acute respiratory failure with hypoxia: Plan: due to COVID 19 pneumonia, bilateral infiltrates on CXR Was requiring prone positioning and BiPAP while awake, but then weaned down to wall high flow nasal cannula at 11-15 L on 03/23 However, on 03/24 worsened again was placed back on Vapotherm high flow nasal cannula On 03/25, requiring higher amounts of oxygen at 40 L and up to 80 % FiO2 to maintain pulse ox 90-91% On 03/26 switched to Ventilator HFNC at 60L, 100% FiO2 to keep POx>88%---> continued to decompensate on the morning of 03/27 and was intubated and proned Pneumomediastinum is now resolved on x-ray Status post tocilizumab on 03/21 CRP trending downward when last checked Continue dexamethasone however on 03/28 was increased to high-dose with 20 mg daily, plan for 5 days then 10mg for 5 days IV Lasix as needed to keep in a negative fluid balance, 40mg IV given 04/03 Ventilator management as per mr teacher tentatively plan for SBT tomorrow, if he fails then consider tracheostomy still requiring high levels of sedation Gabapentin 100mg TID Methadone was discontinued due to prolonged QTc Earlier in the week the [employer] contacted [facility] about ECMO-no beds availab le on 03/28. Kate said that he is not a candidate for ECMO at their facility as age greater than 55 and was on high flow nasal cannula for greater than 3 days (2) Fever: Plan: started on 04/02 UA is clean CXR with persistent infiltrates blood cultures - no growth procalcitonin is < 1 start on Zosyn empirically (3) Pneumonia due to COVID-19 virus: Plan: Symptom onset: approximately March 09, says he just got dyspnea and cough a few days prior to admission-became really short of breath on 03/20 so he came to the ED bilateral infiltrates on CXR, CRP 18 and then decreased after receiving Tocilizumab and dexamethasone Continue dexamethasone as above-now day 10 overall but on high- 20mg IV daily dose Completed 5-day course of Rocephin/Zithromax too far along in course of illness to give Remdesivir, no benefit Received Tocilizumab on 03/21 CTA chest: no pulmonary embolism, just shows diffuse infiltrates initially CXR still with bilateral infiltrates still requiring mechanical ventilation, might need tracheostomy (4) Pneumomediastinum: Plan: Now resolved (5) ROSARIO (acute kidney injury): Plan: - Baseline creatinine less than 1, acutely elevated to 1.61 on admission and now back to normal continue to monitor daily Lasix PRN to keep negative fluid balance (6) Bradycardia: Plan: with sinus terry initially while on BIPAP Now rates are normal to tachycardic (7) Transaminitis: Plan: resolved (8) Hypokalemia: Plan: Resolved with potassium replacement (9) BPH loc w urin obs/LUTS: Plan: Rogers catheter back in place after intubation (10) Hypotension: Plan: BP can drop with sedation Levophed PRN Plan: DVT prophylaxis: High-dose Lovenox, SCDs Disposition: Continued stay in ICU, very guarded prognosis CODE STATUS: [employer] discussed care with she is aware of his very guarded prognosis Admission and Anticipated Discharge Date Admission Date: March 20, 2021 Subjective patient remains intubated, FiO2 still > 50% likely attempt SBT tomorrow, if he fails then ICU will discuss tracheostomy with patient's labs reviewed Review of Systems Review of Systems: Unobtainable due to endotracheal tube Physical Exam Constitutional: well developed, + obese and + mechanically ventilated; no acute distress Neck: trachea midline, no thyromegaly Respiratory: symmetric chest movement (ventilated, supine position); no respiratory distress and no labored breathing Auscultation: no crackles, no rales, no rhonchi and no wheezes Cardiovascular: RRR, no murmur, no edema Gastrointestinal (Abdomen): normal bowel sounds, soft, nontender, no hepatosplenomegaly Musculoskeletal: no cyanosis or clubbing, extremities motor strength 5/5 Head/Neck/Chest: normocephalic, head atraumatic and neck supple Extremities: extremities normal to inspection; no cyanosis, no clubbing and no petechiae Skin: no rashes, warm and dry Neurologic: + obtunded; no focal motor deficits Psychiatric: A+Ox3, euthymic affect Orientation: + not alert Results & Data Results & Data ([facility]) Vital Signs (Past 12 Hours) Vital Signs Temp Pulse Resp BP Pulse Ox Pulse Ox 04/04/21 12:41 37.4 C 87 144/84 H 93 04/04/21 12:11 37.3 C 89 176/97 H 92 04/04/21 11:41 37.2 C 88 178/101 H 89 L 04/04/21 11:28 87 26 H 91 04/04/21 11:11 37.2 C 88 166/86 H 91 04/04/21 10:41 37.1 C 77 137/70 92 04/04/21 10:11 37.2 C 77 140/72 93 04/04/21 10:00 92 04/04/21 09:41 37.1 C 81 140/71 93 04/04/21 09:11 37.2 C 82 134/71 93 04/04/21 08:41 37.2 C 79 131/70 93 04/04/21 08:11 37.2 C 82 140/74 91 04/04/21 08:00 88 158/61 H 04/04/21 07:41 37.1 C 84 155/80 H 91 04/04/21 07:25 90 21 91 04/04/21 07:10 37.0 C 80 150/84 H 95 04/04/21 06:41 37.0 C 81 137/75 94 04/04/21 06:07 37.0 C 93 H 181/88 H 96 04/04/21 05:11 36.9 C 87 167/83 H 94 04/04/21 04:52 66 23 93 04/04/21 04:11 36.9 C 69 132/63 93 04/04/21 03:11 37.0 C 71 131/66 93 Laboratory Results Laboratory Results - last 24 hr 04/03/21 04/03/21 04/04/21 17:00 20:25 00:33 WBC RBC Hgb Hct MCV MCH MCHC RDW Std Deviation RDW Coeff of Sujit Plt Count MPV Immature Gran % (Auto) Neut % (Auto) Lymph % (Auto) Ashley % (Auto) Eos % (Auto) Baso % (Auto) Neut # (Auto) Lymph # (Auto) Ashley # (Auto) Eos # (Auto) Baso # (Auto) Immature Gran # (Auto) Sample Site POC pH POC pCO2 POC pO2 POC HCO3 POC Total CO2 POC Base Excess POC ABG O2 Sat Sher Test O2 Delivery Device POC O2 Rate Minute Ventilation POC FiO2 Tidal Volume PEEP Sodium Potassium Chloride Carbon Dioxide Anion Gap BUN Creatinine Est Cr Clr Drug Dosing Est GFR ( Amer) Est GFR (Non-Af Amer) BUN/Creatinine Ratio Glucose POC Glucose 199 H 176 H 165 H Calcium Phosphorus Magnesium Procalcitonin 04/04/21 04/04/21 04/04/21 04:13 04:47 04:47 WBC 9.90 RBC 3.52 L Hgb 10.7 L Hct 32.1 L MCV 91.2 MCH 30.4 MCHC 33.3 RDW Std Deviation 46.3 RDW Coeff of Sujit 14.0 Plt Count 201 MPV 9.7 Immature Gran % (Auto) 0.5 Neut % (Auto) 80.2 Lymph % (Auto) 11.9 Ashley % (Auto) 7.0 Eos % (Auto) 0.4 Baso % (Auto) 0.0 Neut # (Auto) 7.94 H Lymph # (Auto) 1.18 L Ashley # (Auto) 0.69 H Eos # (Auto) 0.04 Baso # (Auto) 0.00 Immature Gran # (Auto) 0.05 H Sample Site POC pH POC pCO2 POC pO2 POC HCO3 POC Total CO2 POC Base Excess POC ABG O2 Sat Sher Test O2 Delivery Device POC O2 Rate Minute Ventilation POC FiO2 Tidal Volume PEEP Sodium 143 Potassium 3.6 Chloride 111 H Carbon Dioxide 29 Anion Gap 3.0 BUN 53 H Creatinine 1.17 Est Cr Clr Drug Dosing 83.5 Est GFR ( Amer) 78.1 Est GFR (Non-Af Amer) 67.4 BUN/Creatinine Ratio 45.0 H Glucose 165 H POC Glucose 138 H Calcium 8.3 L Phosphorus 2.9 Magnesium 2.7 H Procalcitonin 04/04/21 04/04/21 04/04/21 04:47 04:57 07:36 WBC RBC Hgb Hct MCV MCH MCHC RDW Std Deviation RDW Coeff of Sujit Plt Count MPV Immature Gran % (Auto) Neut % (Auto) Lymph % (Auto) Ashley % (Auto) Eos % (Auto) Baso % (Auto) Neut # (Auto) Lymph # (Auto) Ashley # (Auto) Eos # (Auto) Baso # (Auto) Immature Gran # (Auto) Sample Site Art Line POC pH 7.40 POC pCO2 45 POC pO2 72 L POC HCO3 28 H POC Total CO2 29 POC Base Excess 3.0 H POC ABG O2 Sat 94.0 Sher Test NA O2 Delivery Device Ventilator POC O2 Rate 18 Minute Ventilation 9.3 POC FiO2 50 Tidal Volume 520 PEEP 10 Sodium Potassium Chloride Carbon Dioxide Anion Gap BUN Creatinine Est Cr Clr Drug Dosing Est GFR ( Amer) Est GFR (Non-Af Amer) BUN/Creatinine Ratio Glucose POC Glucose 131 H Calcium Phosphorus Magnesium Procalcitonin 0.38 04/04/21 11:47 WBC RBC Hgb Hct MCV MCH MCHC RDW Std Deviation RDW Coeff of Sujit Plt Count MPV Immature Gran % (Auto) Neut % (Auto) Lymph % (Auto) Ashley % (Auto) Eos % (Auto) Baso % (Auto) Neut # (Auto) Lymph # (Auto) Ashley # (Auto) Eos # (Auto) Baso # (Auto) Immature Gran # (Auto) Sample Site POC pH POC pCO2 POC pO2 POC HCO3 POC Total CO2 POC Base Excess POC ABG O2 Sat Sher Test O2 Delivery Device POC O2 Rate Minute Ventilation POC FiO2 Tidal Volume PEEP Sodium Potassium Chloride Carbon Dioxide Anion Gap BUN Creatinine Est Cr Clr Drug Dosing Est GFR ( Amer) Est GFR (Non-Af Amer) BUN/Creatinine Ratio Glucose POC Glucose 202 H Calcium Phosphorus Magnesium Procalcitonin Medications Administered Current Inpatient Medications Acetaminophen (Acetaminophen 325 Mg Tab) 650 mg PO Q4H PRN PRN Reason: Pain or Fever Stop: 04/19/21 16:45 Last Admin: 04/02/21 06:23 Dose: 650 mg Documented by: Albuterol (Albut/Ipratrop 3mg/0.5mg Neb 3 Ml Vial) 3 ml NEB Q4R PRN PRN Reason: Shortness of Breath/Wheezing Stop: 04/19/21 16:45 Amlodipine Besylate (Amlodipine Besylate 5 Mg Tab) 10 mg PO QAM MARCIA Stop: 04/29/21 08:59 Last Admin: 03/31/21 08:20 Dose: 10 mg Documented by: Enoxaparin Sodium (Enoxaparin Inj 40 Mg/0.4 Ml Syr) 40 mg SQ Q12 MARCIA Stop: 05/01/21 20:59 Last Admin: 04/04/21 08:05 Dose: 40 mg Documented by: Fentanyl Citrate (Fentanyl Bolus From Bag) 50 mcg IV Q60M PRN PRN Reason: Pain or Agitation Stop: 04/10/21 10:05 Last Admin: 04/04/21 11:52 Dose: 50 mcg Documented by: Gabapentin (Gabapentin 250 Mg/5 Ml 470 Ml Btl) 100 mg PO TID [facility] Stop: 05/02/21 13:59 Last Admin: 04/04/21 13:24 Dose: 100 mg Documented by: Hydralazine HCl (Hydralazine Hcl 20 Mg/Ml Vial) 10 mg IV Q6H PRN PRN Reason: SBP GREATER THAN 160 Stop: 04/29/21 07:43 Last Admin: 04/03/21 12:02 Dose: 10 mg Documented by: Fentanyl Citrate (Fentanyl Drip) 1,250 mcg in 250 mls @ 40 mls/hr IV .Q6H15M MARCIA; Protocol Stop: 04/10/21 10:05 Last Admin: 04/03/21 10:09 Dose: Not Given Documented by: Dexamethasone 10 mg/ Syringe 2.5 mls @ 1 mls/min IV DAILY [facility] Stop: 04/06/21 09:03 Last Admin: 04/04/21 09:23 Dose: 1 mls/min Documented by: Midazolam HCl (Versed) 125 mg in 250 mls @ 4 mls/hr IV .[id number] MARCIA; Protocol Stop: 04/29/21 09:14 Last Titration: 04/04/21 07:13 Dose: 2 mg/hr, 4 mls/hr Documented by: Norepinephrine Bitartrate (Levophed/D5w) 8 mg in 508 mls @ 0 mls/hr IV .Q0M MARCIA; Protocol Stop: 04/29/21 13:29 Last Admin: 04/03/21 10:07 Dose: Not Given Documented by: Fentanyl Citrate (Fentanyl Citrate) 2,500 mcg in 250 mls @ 0 mls/hr IV .Q0M MARCIA; Protocol Stop: 04/16/21 19:29 Last Admin: 04/04/21 13:22 Dose: 175 mcg/hr, 17.5 mls/hr Documented by: Piperacillin Sod/Tazobactam (Sod 4.5 gm/ Dextrose) 120 mls @ 30 mls/hr IV Q8H [facility]; Protocol Stop: 04/10/21 13:59 Last Admin: 04/04/21 13:24 Dose: 30 mls/hr Documented by: Propofol (Diprivan) 1,000 mg in 100 mls @ 23.163 mls/hr IV .Q4H20M [facility]; Protocol Stop: 04/06/21 11:44 Last Admin: 04/04/21 13:22 Dose: 35 mcg/kg/min, 23.2 mls/hr Documented by: Sodium Chloride (Nss 1000ml) 1,000 mls @ 30 mls/hr IV .Q24H [facility] Stop: 05/03/21 15:44 Last Admin: 04/03/21 15:48 Dose: 30 mls/hr Documented by: Insulin Aspart (Insulin Aspart 100 Units/Ml 3 Ml Pen) 0 units SC Q4 [facility] Stop: 04/28/21 12:14 Last Admin: 04/04/21 11:52 Dose: 9 units Documented by: Lansoprazole (Lansoprazole 30 Mg Soltab) 30 mg OG BID [facility] Stop: 04/27/21 20:59 Last Admin: 04/04/21 08:05 Dose: 30 mg Documented by: Midazolam HCl (Midazolam Bolus From Bag) 2 mg IV Q60M PRN PRN Reason: Sedation Stop: 04/28/21 09:28 Last Admin: 04/04/21 12:32 Dose: 2 mg Documented by: Miscellaneous Information (Piperacill/Tazobac Consult Active) 1 ea N/A UD PRN PRN Reason: Consult Stop: 05/03/21 07:48 Multi-Ingredient Cream (Artificial Tears Op Oint 3.5 Gm Tube) 1 appln OP Q4H [facility] Stop: 04/26/21 08:59 Last Admin: 04/04/21 11:52 Dose: 1 appln Documented by: Multi-Ingredient Cream (Artificial Tears Op Oint 3.5 Gm Tube) 1 appln OP Q4H [facility] Stop: 04/30/21 10:44 Last Admin: 04/04/21 13:23 Dose: 1 appln Documented by: Nutritional Formula (Peptamen Intense Vhp 1.0 Darrian 1,000 Ml Bag) 1,000 ml OG UD [facility]; Protocol Stop: 05/01/21 10:14 Last Admin: 04/02/21 02:41 Dose: 1,000 ml Documented by: Propofol (Propofol Bolus From Bag) 20 mg IV Q5M PRN PRN Reason: Sedation Stop: 04/06/21 11:34 Last Admin: 04/04/21 12:32 Dose: 20 mg Documented by: Sterile Water (Tube Feeding Water Flush) 30 ml GT Q4H MARCIA Stop: 04/27/21 13:59 Last Admin: 04/04/21 13:23 Dose: 30 ml Documented by: PG Care Time/CCT Total # of Minutes Spent Total Time Spent with Patient: Total time spent is greater than 50% in coordination of care (as documented) at patient's floor/unit and/or counseling patient: Coding Level of Care Code 80298 Subseq Hosp Care Lvl 2 Diagnoses Acute respiratory failure with hypoxia J96.01 Fever R50.9 Pneumonia due to COVID-19 virus U07.1; J12.82 Pneumomediastinum J98.2 ROSARIO (acute kidney injury) N17.9 Bradycardia R00.1 Transaminitis R74.01 Hypokalemia E87.6 BPH loc w urin obs/LUTS N40.1 Hypotension I95.9
[2021-04-04] MEDS: SODIUM CHLORIDE 0.9% 1000ML 1,000 ML IV SCH (17:13)
[2021-04-05] MEDS: propofoL 1,000 MG/100 ML VIAL IV SCH ×12 (00:10→20:24)
[2021-04-05] MEDS: TUBE FEEDING WATER FLUSH GT SCH ×7 (00:11→20:45)
[2021-04-05] MEDS: ARTIFICIAL TEARS OP OINT 3.5 GM TUBE OP SCH ×12 (00:11→20:25)
[2021-04-05] MEDS: INSULIN ASPART 100 UNITS/ML 3 ML PEN SC SCH ×6 (00:12→20:44)
[2021-04-05] MEDS: MIDAZOLAM HCL 125 MG/250 ML BAG IV SCH ×2 (00:24→03:47)
[2021-04-05] MEDS: fentaNYL citrate 2,500 MCG/250 ML BAG IV SCH ×6 (04:00→15:49)
[2021-04-05 04:57] LABS: Basophils # (auto) 0.01 K/uL (0-0.2); Basophils % (auto) 0.1 %; Eosinophils # (auto) 0.07 K/uL (0-0.5); Eosinophils % (auto) 0.8 %; Hemoglobin 11.3 g/dL (14.0-18.0); Immature Granulocytes # (auto) 0.09 K/uL (0.00-0.02); Lymphocytes # (auto) 1.23 K/uL (1.2-3.4); Lymphocytes % (auto) 13.2 %; Mean Corpuscular Hemoglobin 30.2 pg (25-34); Mean Corpuscular Hgb Conc 33.2 g/dL (32-36); Mean Corpuscular Volume 90.9 fL (80-100); Mean Platelet Volume 9.9 fL (7.4-10.4); Monocytes # (auto) 0.82 K/uL (0.11-0.59); Monocytes % (auto) 8.8 %; Neutrophils % (auto) 76.1 %; Platelet Count 204 K/uL (130-400); RDW Coefficient of Variation 14.2 % (11.5-14.5); RDW Standard Deviation 46.8 fL (36.4-46.3); Red Blood Count 3.74 M/uL (4.7-6.1); White Blood Count 9.32 K/uL (4.8-10.8)
[2021-04-05 05:27] LABS: BUN Creatinine Ratio 47.6 (10-20); Calcium 8.4 mg/dl (8.5-10.1); Creatinine Clr Calc Pharmacy 105.7 ml/min; Est GFR (African American) 101.7 ml/min; Est GFR (Non-African American) 87.8 ml/min; Magnesium 2.6 mg/dl (1.8-2.4); Potassium 3.7 mmol/L (3.5-5.1)
[2021-04-05 05:33] LABS: iSTAT Arterial Blood Gas HCO3 28 meg/L (19-24); iSTAT Arterial Blood Gas pCO2 44 mmHg (35-46); iSTAT Arterial Blood Gas pH 7.41 (7.35-7.45); iSTAT Arterial Blood Gas pO2 63 mmHg (80-95); iSTAT Carbon Dioxide 29 mmol/L (24-31); iSTAT FiO2 40 %; iSTAT Site Art Line
[2021-04-05 05:54] LABS: Phosphorus 3.5 mg/dl (2.5-4.9)
[2021-04-05] MEDS: PIPERACILLIN/TAZOBACTAM 4.5 GM in DEXTROSE 5% 100 ML IV SCH ×3 (05:59→20:44)
--- NOTE | 2021-04-05 06:53 | XRay Report ---
XR chest 1V portable CLINICAL HISTORY: f/u COMPARISON STUDY: Chest radiograph April 04, 2021. FINDINGS: Tip of endotracheal tube is 2.3 cm above the jaguar. Tip of nasogastric tube is within the gastric antrum. Right-sided subclavian central line remains in place. There is no pneumothorax. There is no definite pleural effusion. Cardiomediastinal silhouette is stable. Extensive bilateral airspac e opacities are similar to prior exam. IMPRESSION: 1. Satisfactory positioning of lines and tubes. 2. No significant change in extensive bilateral airspace opacities. ACT 112: Negative or not required by law. Electronically signed by: Floyd Neal M.D. 04/05/2021 6:52 AM
[2021-04-05] MEDS: PROPOFOL BOLUS FROM BAG IV PRN ×2 (07:23→11:45)
[2021-04-05] MEDS: MIDAZOLAM BOLUS FROM BAG IV PRN (07:24)
--- NOTE | 2021-04-05 08:39 | Electrocardiogram Report ---
Test Reason : Blood Pressure : / mmHG Vent. Rate : 085 BPM Atrial Rate : 085 BPM P-R Int : 142 ms QRS Dur : 106 ms QT Int : 384 ms P-R-T Axes : 006 -12 180 degrees QTc Int : 456 ms Normal sinus rhythm T wave abnormality, consider inferolateral ischemia Abnormal ECG When compared with ECG of 03-APR-2021 04:01, T wave inversion less evident in Anterior leads Confirmed by Ean Rust ([id number]) on 04/05/2021 8:39:04 AM Referred By: REFERRED SELF Confirmed By:Ean Rust
--- NOTE | 2021-04-05 08:48 | Billing Data ---
Date of Service April 05, 2021 Coding Level of Care Code Critical Care 08 29- mins
[2021-04-05] MEDS: LANSOPRAZOLE 30 MG SOLTAB OG SCH ×2 (09:03→20:26)
[2021-04-05] MEDS: GABAPENTIN 250 MG/5 ML 470 ML BTL PO SCH ×3 (09:03→20:25)
[2021-04-05] MEDS: ENOXAPARIN INJ 40 MG/0.4 ML SYR SQ SCH ×2 (09:03→20:25)
[2021-04-05] MEDS: dexAMETHasone 10 MG in SYRINGE 0 ML IV SCH (09:04)
[2021-04-05] MEDS ORDERED: LACTULOSE SYRUP 30 GM/45 ML UDP PO STA (10:05)
[2021-04-05] MEDS ORDERED: VECURONIUM BROMIDE 10 MG VIAL IV STA (11:36)
--- NOTE | 2021-04-05 11:44 | Critical Care Progress Note ---
Date of Service April 05, 2021 Assessment & Plan (1) Acute respiratory failure with hypoxia: Plan: Reason Critically Ill: 61-year-old male with past medical history of hypertension admitted to the hospital for COVID-19 pneumonia and acute hypoxic respiratory failure, intubated 03/27/2021 PLAN: NEURO: Neuromuscular blockade with cisatracurium -- stopped 03/31/21. Patient getting as needed vecuronium; last dose was 10mg IV last night at 2000 -Bis monitoring -- currently fluctuating 40s-70s -Currently on propofol, fentanyl and midazolam (Midazolam added 03/29/2021 as patient was very restless) CT Head 04/02/21: Negative for any acute abnormality. RESPIRATORY: VDRF with acute hypoxic respiratory failure, secondary to multilobar COVID-19 pneumonia - COVID-19 PCR positive 03/16/2021 - CRP 18.2 --> 9.75 --> 1.63 - S/p Tocilizumab 03/21/2021 - Intubated 03/27/2021 - Continue with lung protective ventilation - High PEEP, low tidal volume to keep Plateau < 30 with permissive hypercapnea if need be. - Monitor ABGs ARDS net high-dose steroid protocol Kate as well as [facility] team where contacted on 03/28/2021, unfortunately he is not a candidate from either side. - Plan for tracheostomy today, 04/05/21 --Pneumomediastinum--> resolved No signs of pneumothorax on the chest x-ray CARDIOVASCULAR: Intermittent hypertension - Continue home amlodipine - Hydralazine 10mg IV q6h prn for SBP > 160 Intermittent hypotension: Resolved - likely sec to sedation - c/w vasopressor as needed to keep MAP>65 Fluids/Renal: - Goal to remain net negative - Diuresis as needed - Additional 20mg IV lasix provided today ID: New onset fever 04/02/2021 -Septic work-up ordered --> negative to date -Nasal MRSA -ve -Procalcitonin 0.49 --> 0.63 --> 0.38 Patient remains afebrile GI/Nutrition: Transaminitis - Continue to follow c/w trickle tube feeds Constipation -- no bowel movement since 03/26 -- lactulose 30mg ordered today; will also start on daily Senna Heme: Leukocytosis, resolved Continue to monitor Endocrine: ICU hyperglycemia protocol --Prophylaxis VTE: Lovenox GI: Lansoprazole Lines: Left radial, right subclavian, positive Rogers Diet: Trickle tube feeds Patient's Mrs. Emperatriz Neri [phone] (2) Pneumonia due to COVID-19 virus: Admission and Anticipated Discharge Date Admission Date: March 20, 2021 Supervising Physician Co-Signing Physician Notes Dr. Merchant was resident physician during care of patient. I separately evaluated patient for ortiz portions of the history and the exam. I was present during the critical portion of medical decision making, and I discussed the case with the resident. I generally agree with the findings and plan. Significant discussion with patient's , we have change CODE STATUS back to full code as she was unaware of discussions with the patient regarding wishes in the event of cardiac arrest. Patient has improved and I believe he could have a successful resuscitation so I am agreeable with this. If it is later determined that the patient would not want to undergo heroic measures I am also agreeable with this as he has a guarded condition secondary to significant COVID-19 pneumonia. We also discussed risks and benefits of percutaneous tracheostomy and she desires to proceed. Patient has had decreasing ventilator requirements however each attempt at a spontaneous breathing trial with the patient has failed significantly and he has large enough ventilator requirements I believe he still would benefit from days and likely weeks of mechanical ventilation so we will proceed with percutaneous tracheostomy. Subjective Per overnight report, patient required bolus with propofol and increase in versed. Still intubated. No other changes. Review of Systems Review of Systems: Unobtainable due to endotracheal tube Physical Exam Physical Exam: Please see attending attestation. Results & Data Results & Data ([facility]) Vital Signs (Past 12 Hours) Vital Signs Temp Pulse Resp BP Pulse Ox Pulse Ox 04/05/21 10:00 88 L 04/05/21 08:00 66 04/05/21 07:43 75 25 H 90 04/05/21 07:37 36.9 C 75 159/85 H 89 L 04/05/21 07:11 36.9 C 79 169/89 H 89 L 04/05/21 06:41 36.9 C 68 136/74 91 04/05/21 06:11 36.9 C 66 140/72 91 04/05/21 05:41 36.9 C 66 130/75 91 04/05/21 05:15 61 21 90 04/05/21 05:11 36.8 C 65 130/76 91 04/05/21 04:41 36.8 C 71 150/85 H 89 L 04/05/21 04:11 36.7 C 75 166/82 H 88 L 04/05/21 04:00 134/59 L 04/05/21 03:41 36.7 C 66 129/67 91 04/05/21 03:11 36.7 C 64 119/65 91 04/05/21 02:41 36.7 C 60 120/68 04/05/21 02:11 36.8 C 60 121/65 04/05/21 01:41 36.7 C 62 118/66 04/05/21 01:11 36.7 C 65 120/65 91 04/05/21 01:05 62 23 91 04/05/21 00:41 36.7 C 66 123/67 04/05/21 00:11 36.8 C 63 121/63 91 04/05/21 00:00 134/55 L 04/04/21 23:41 36.8 C 64 118/64 91 Laboratory Results 04/05/21 04/05/21 04/05/21 Range/Units 07:39 05:21 04:41 WBC (4.8-10.8) K/uL RBC (4.7-6.1) M/uL Hgb (14.0-18.0) g/dL Hct (42-52) % MCV (80-100) fL MCH (25-34) pg MCHC (32-36) g/dL RDW Std Deviation (36.4-46.3) fL RDW Coeff of Sujit (11.5-14.5) % Plt Count (130-400) K/uL MPV (7.4-10.4) fL Immature Gran % (Auto) % Neut % (Auto) % Lymph % (Auto) % Rice % (Auto) % Eos % (Auto) % Baso % (Auto) % Neut # (Auto) (1.4-6.5) K/uL Lymph # (Auto) (1.2-3.4) K/uL Rice # (Auto) (0.11-0.59) K/uL Eos # (Auto) (0-0.5) K/uL Baso # (Auto) (0-0.2) K/uL Immature Gran # (Auto) (0.00-0.02) K/uL Sample Site Art Line POC pH 7.41 (7.35-7.45) POC pCO2 44 (35-46) mmHg POC pO2 63 L (80-95) mmHg POC HCO3 28 H (19-24) iraida/L POC Total CO2 29 (24-31) mmol/L POC Base Excess 4.0 H (-9-1.8) iraida/L POC ABG O2 Sat 92.0 (90-95) % Sher Test NA O2 Delivery Device Ventilator POC O2 Rate 18 Minute Ventilation 8.9 POC FiO2 40 % Tidal Volume 520 PEEP 8 Sodium 144 (136-145) mmol/L Potassium 3.7 (3.5-5.1) mmol/L Chloride 112 H (98-107) mmol/L Carbon Dioxide 27 (21-32) mmol/L Anion Gap 5.0 (3-11) BUN 45 H (7-18) mg/dl Creatinine 0.94 (0.6-1.4) mg/dl Est Cr Clr Drug Dosing 105.7 ml/min Est GFR ( Amer) 101.7 ml/min Est GFR (Non-Af Amer) 87.8 ml/min BUN/Creatinine Ratio 47.6 H (10-20) Glucose 139 H (70-99) mg/dl POC Glucose 132 H (70-99) mg/dl Calcium 8.4 L (8.5-10.1) mg/dl Phosphorus 3.5 (2.5-4.9) mg/dl Magnesium 2.6 H (1.8-2.4) mg/dl 04/05/21 04/05/21 04/05/21 Range/Units 04:41 03:51 00:04 WBC 9.32 (4.8-10.8) K/uL RBC 3.74 L (4.7-6.1) M/uL Hgb 11.3 L (14.0-18.0) g/dL Hct 34.0 L (42-52) % MCV 90.9 (80-100) fL MCH 30.2 (25-34) pg MCHC 33.2 (32-36) g/dL RDW Std Deviation 46.8 H (36.4-46.3) fL RDW Coeff of Sujit 14.2 (11.5-14.5) % Plt Count 204 (130-400) K/uL MPV 9.9 (7.4-10.4) fL Immature Gran % (Auto) 1.0 % Neut % (Auto) 76.1 % Lymph % (Auto) 13.2 % Rice % (Auto) 8.8 % Eos % (Auto) 0.8 % Baso % (Auto) 0.1 % Neut # (Auto) 7.10 H (1.4-6.5) K/uL Lymph # (Auto) 1.23 (1.2-3.4) K/uL Rice # (Auto) 0.82 H (0.11-0.59) K/uL Eos # (Auto) 0.07 (0-0.5) K/uL Baso # (Auto) 0.01 (0-0.2) K/uL Immature Gran # (Auto) 0.09 H (0.00-0.02) K/uL Sample Site POC pH (7.35-7.45) POC pCO2 (35-46) mmHg POC pO2 (80-95) mmHg POC HCO3 (19-24) iraida/L POC Total CO2 (24-31) mmol/L POC Base Excess (-9-1.8) iraida/L POC ABG O2 Sat (90-95) % Sher Test O2 Delivery Device POC O2 Rate Minute Ventilation POC FiO2 % Tidal Volume PEEP Sodium (136-145) mmol/L Potassium (3.5-5.1) mmol/L Chloride (98-107) mmol/L Carbon Dioxide (21-32) mmol/L Anion Gap (3-11) BUN (7-18) mg/dl Creatinine (0.6-1.4) mg/dl Est Cr Clr Drug Dosing ml/min Est GFR ( Amer) ml/min Est GFR (Non-Af Amer) ml/min BUN/Creatinine Ratio (10-20) Glucose (70-99) mg/dl POC Glucose 145 H 155 H (70-99) mg/dl Calcium (8.5-10.1) mg/dl Phosphorus (2.5-4.9) mg/dl Magnesium (1.8-2.4) mg/dl 09/05/21 09/05/21 Range/Units 20:19 11:47 WBC (4.8-10.8) K/uL RBC (4.7-6.1) M/uL Hgb (14.0-18.0) g/dL Hct (42-52) % MCV (80-100) fL MCH (25-34) pg MCHC (32-36) g/dL RDW Std Deviation (36.4-46.3) fL RDW Coeff of Sujit (11.5-14.5) % Plt Count (130-400) K/uL MPV (7.4-10.4) fL Immature Gran % (Auto) % Neut % (Auto) % Lymph % (Auto) % Rice % (Auto) % Eos % (Auto) % Baso % (Auto) % Neut # (Auto) (1.4-6.5) K/uL Lymph # (Auto) (1.2-3.4) K/uL Rice # (Auto) (0.11-0.59) K/uL Eos # (Auto) (0-0.5) K/uL Baso # (Auto) (0-0.2) K/uL Immature Gran # (Auto) (0.00-0.02) K/uL Sample Site POC pH (7.35-7.45) POC pCO2 (35-46) mmHg POC pO2 (80-95) mmHg POC HCO3 (19-24) iraida/L POC Total CO2 (24-31) mmol/L POC Base Excess (-9-1.8) iraida/L POC ABG O2 Sat (90-95) % Sher Test O2 Delivery Device POC O2 Rate Minute Ventilation POC FiO2 % Tidal Volume PEEP Sodium (136-145) mmol/L Potassium (3.5-5.1) mmol/L Chloride (98-107) mmol/L Carbon Dioxide (21-32) mmol/L Anion Gap (3-11) BUN (7-18) mg/dl Creatinine (0.6-1.4) mg/dl Est Cr Clr Drug Dosing ml/min Est GFR ( Amer) ml/min Est GFR (Non-Af Amer) ml/min BUN/Creatinine Ratio (10-20) Glucose (70-99) mg/dl POC Glucose 173 H 202 H (70-99) mg/dl Calcium (8.5-10.1) mg/dl Phosphorus (2.5-4.9) mg/dl Magnesium (1.8-2.4) mg/dl Diagnostic Findings CXR today with no significant change compared to yesterday. Critical Care Time I have personally spent 85 minutes of critical care time in the direct manage ment of this patient. This is a life/limb threatening event. This includes time spent evaluating patient, direct bedside care, chart review, placing orders, interpretation of diagnostic studies, discussion with consultants, patient, and/or family members regarding treatment decisions, as well as other required patient management activities. This time is exclusive of all separately billable procedures, and teaching time and separate from and in addition to any other critical care service time. Resident Activity Tracking Resident Involvement: Resident Care Provided Care Provided: Adult Hospital Medicine
--- NOTE | 2021-04-05 12:26 | Procedure Note ---
Procedure Note Date of Service April 05, 2021 Note Procedure Date: Noted Above Procedure: Percutaneous Dilatational Tracheotomy with Bronchoscopic Guidance Pre-procedure Diagnosis & Indication: Chronic respiratory failure and need for ongoing mechanical ventilation Post-procedure Diagnosis: same as above Prior to Procedure: Informed Consent: The risks, benefits, indications, potential complications, and alternatives were explained to the patient's and informed consent was obtained. Performed by: Arleen Wall DO Federal Aid Coordinator: Unique Horner Bronchoscopy Federal Aid Coordinator: Unique Horner Preprocedure: The identity of the patient was confirmed and a bedside time out was performed. [place] protocol was followed for this procedure. Prior to the initiation of sedation or the procedure, a timeout was performed. The patients identity was verified by confirming the patients wrist band for name, date of , and medical record number. Everyone in the room was in agreement with the patient identify, the procedure to be performed, consent was in place and matched the planned procedure, and the procedure site. The area was cleaned with a CHG scrub and draped with large sterile barrier. Hand hygiene was performed, and cap, mask, sterile gown, and sterile gloves were worn. The patient was covered by a large sterile drape. Sterile technique was maintained for the entire procedure. Anesthesia: The patient was intubated and sedated prior to the procedure. Additional midazolam and fentanyl was given for deep sedation. Please refer to the accompanying procedural sedation form for additional details. Once the patient was adequately sedated and with continuous BIS monitoring, vecuronium was administered for paralysis. Description of Procedure: The patient was placed in the supine position. The anterior neck was prepped and draped in usual sterile fashion. 1% lidocaine was administered approximately 2 fingerbreadths above the sternal notch for local anesthesia. The bronchoscope was introduced through the endotracheal tube and the trachea was properly visualized. The endotracheal tube was then gradually withdrawn within the trachea under direct bronchoscopic visualization. The area of the surgical site was initially transilluminated, and proper midline position was confirmed by bouncing the needle from the tracheostomy tray over the trachea with bronchoscopic examination. The needle was advanced into the trachea and proper positioning was confirmed with direct visualization. The needle was then removed leaving a white outer cannula in position. The wire from the tracheostomy tray was then advanced through the white outer cannula. The cannula was then removed. The initial small, blue dilator was then advanced over the wire into the trachea for initial dilation. The large, tapered dilator was then advanced over the wire into the trachea. The dilator was removed leaving the wire and white inner cannula in position. A number 8 DCT Shiley tracheostomy tube with appropriate inner cannula was then advanced over the wire and white inner cannula into the trachea. Proper positioning was confirmed with bronchoscopic visualization. The tracheostomy tube was then sutured in place with four nylon sutures. It was further secured with a tracheostomy tie. Estimated blood loss: Less than 5 mL. Complications: None immediate. Coding CPT Codes ENT - ENT: 20802 Incision of windpipe ([id number]) [facility] Procedure Codes (Charges) ENT ENT: 03480 Incision of windpipe
--- NOTE | 2021-04-05 12:30 | Procedure Note ---
Procedure Note Date of Service April 05, 2021 Note Procedure Name: Fiberoptic bronchoscopy for placement of percutaneous tracheostomy tube Procedure time out: side/site verified, patient ID confirmed, correct procedure Consent obtained: written (The risks, benefits, indications, potential complications, and alternatives were explained to the family and informed consent obtained by Dr. Hayes.) Time of procedure: 11:30am Performed by: physician sales intern: Talat Horner PA-C Indications: diagnostic, therapeutic Contraindications: None Indication: Patient requiring percutaneous placement of tracheostomy tube. Fiberoptic bronchoscopy required for clearance of secretions prior to the procedure, visualization of cannulization, and verification of airways status post procedure. The bronchoscope was introduced into the endotracheal tube. A large mucous plug was removed from the right main bronchus. There was also evidence of mucus and secretions at the jaguar. These were also evacuated. There was no evidence of bleeding or significant bronchial trauma. There were minimal secretions in the subsegmental branches of the left lower lobe and at the lingula. These were evacuated. The right and main left bronchus as well as the segmental branches of the right middle and right lower lobe and left upper, lingula and left lower lobes were again examined with no blood or other mucous plugging. There was no evidence of bronchial trauma on the final examination with the fiberoptic scope. The cuff of the endotracheal tube was deflated and the endotracheal tube was withdrawn to the level of the vocal cords using video bronchoscopy. The cuff was lightly reinflated and the fiberoptic bronchoscope was advanced to the tip of the endotracheal tube. The needle entry site in the trachea midline was visualized as was the placement of the guidewire into the distal trachea. Direct visualization was obtained as the serial dilators were used and the tracheostomy tube placed. After placement of the tracheostomy tube, the bronchoscope was withdrawn from the endotracheal tube and introduced through the tracheostomy tube to confirm correct placement. The bronchoscope was then withdrawn to allow suturing of the tracheostomy tube into position. After confirmation of position and securement of the tracheostomy tube the endotracheal tube and the orogastric tube were removed without complication. The patient experienced no desaturation or complication during the procedure. After placement of the tracheostomy tube and successful securement, the bronchoscope was handed off to Dr. Wall who did a final visual inspection of the jaguar and airways. Dr. Wall was present for the entire procedure as he was performing the surgical portion of the percutaneous tracheostomy Complications: none Patient tolerated procedure: well Post-procedure vital signs: reviewed and stable Comments: The patient received sedation and neuromuscular blockade for the procedure with airway intact with endotracheal tube. This was ordered, administered, and monitored by Dr. Wall during my portion of the procedure. Coding CPT Codes Pulmonary/Thoracic - Pulmonary and Thoracic: 23481 Bronchoscopy, clear airways ([id number]) [facility] [place] Procedure Codes (Charges) Pulmonary/Thoracic Procedure 1: Pulmonary and Thoracic: 01208 Bronchoscopy, clear airways
[2021-04-05] MEDS: SODIUM CHLORIDE 0.9% 1000ML 1,000 ML IV SCH (15:25)
--- NOTE | 2021-04-05 15:59 | XRay Report ---
KUB CLINICAL HISTORY: Enteric tube placement. FINDINGS: An AP, portable, supine view of the abdomen is compared to study dated 06/16/2017 and corre lated with abdominal CT dated 06/14/2017. An enteric tube has been placed. The tip projects below the diaphragm over the mid stomach. Cholecystectomy clips are noted in the right upper quadrant. There i s no evidence of bowel obstruction. No abnormal abdominal calcifications are identified. The bony str uctures appear intact. Consolidation is seen at the left lung base. IMPRESSION: An enteric tube has been placed as above. Electronically signed by: Talat Lea M.D. 04/05/2021 3:57 PM
[2021-04-05] MEDS: PEPTAMEN INTENSE VHP 1.0 CAL 1,000 ML BAG OG SCH (17:08)
--- NOTE | 2021-04-05 18:13 | Hospitalist Progress Note ---
Date of Service April 05, 2021 Assessment & Plan (1) Acute respiratory failure with hypoxia: Plan: due to COVID 19 pneumonia, bilateral infiltrates on CXR Was requiring prone positioning and BiPAP while awake, but then weaned down to wall high flow nasal cannula at 11-15 L on 03/23 However, on 03/24 worsened again was placed back on Vapotherm high flow nasal cannula On 03/25, requiring higher amounts of oxygen at 40 L and up to 80 % FiO2 to maintain pulse ox 90-91% On 03/26 switched to Ventilator HFNC at 60L, 100% FiO2 to keep POx>88%---> continued to decompensate on the morning of 03/27 and was intubated and proned Pneumomediastinum is now resolved on x-ray Status post tocilizumab on 03/21 CRP trended downward Continue dexamethasone however on 03/28 was increased to high-dose with 20 mg daily, plan for 5 days then 10mg for 5 days IV Lasix as needed to keep in a negative fluid balance, 40mg IV given 04/03 and again on 04/05 Ventilator management as per stereoptic projection topographer Has failed multiple SBTs Now status post tracheostomy on 04/05 still requiring high levels of sedation Continue hospital course, gabapentin 100mg TID Methadone was discontinued due to prolonged QTc Earlier in the hospital course, the Voice Systems Engineer contacted [facility] about ECMO-no beds available on 03/28. Kate said that he is not a candidate for ECMO at their facility as age greater than 55 and was on high flow nasal cannula for greater than 3 days (2) Fever: Plan: started on 04/02, now resolved UA is clean CXR with persistent infiltrates blood cultures - no growth Sputum culture now growing group G beta Streptococcus procalcitonin is < 1 Continue on Zosyn, but could consider narrowing down-defer to stereoptic projection topographer (3) Pneumonia due to COVID-19 virus: Plan: Symptom onset: approximately March 09, says he just got dyspnea and cough a few days prior to admission-became really short of breath on 03/20 so he came to the ED bilateral infiltrates on CXR, CRP 18 and then decreased after receiving Tocilizumab and dexamethasone Continue dexamethasone as above-now day 10 overall but on high- 20mg IV daily dose Completed 5-day course of Rocephin/Zithromax too far along in course of illness to give Remdesivir, no benefit Received Tocilizumab on 03/21 CTA chest: no pulmonary embolism, just shows diffuse infiltrates initially CXR still with bilateral infiltrates Sputum culture with group C beta strep as above-on Zosyn still requiring mechanical ventilation, now status post tracheostomy (4) Pneumomediastinum: Plan: Now resolved (5) ROSARIO (acute kidney injury): Plan: - Baseline creatinine less than 1, acutely elevated to 1.61 on admission and now back to normal continue to monitor daily Making urine, Rogers catheter in place Lasix PRN to keep negative fluid balance (6) Bradycardia: Plan: with sinus terry initially while on BIPAP Now rates are normal to tachycardic (7) Transaminitis: Plan: resolved (8) Hypokalemia: Plan: Resolved with potassium replacement (9) BPH loc w urin obs/LUTS: Plan: Rogers catheter back in place after intubation (10) Hypotension: Plan: BP can drop with sedation Levophed PRN Plan: DVT prophylaxis: High-dose Lovenox, SCDs Disposition: Continued stay in ICU, very guarded prognosis CODE STATUS: Full code Admission and Anticipated Discharge Date Admission Date: March 20, 2021 Subjective Patient had a tracheostomy performed today, remains ventilated and sedated. Review of Systems Review of Systems: Unobtainable due to cognitive status and Unobtainable due to endotracheal tube Physical Exam Constitutional: WD/WN, vitals as above + mechanically ventilated Results & Data Results & Data ([facility]) Vital Signs (Past 12 Hours) Vital Signs Temp Pulse Resp BP Pulse Ox Pulse Ox 04/05/21 17:11 37.1 C 71 115/68 93 04/05/21 16:41 37.2 C 72 109/66 93 04/05/21 16:11 37.1 C 77 122/70 91 04/05/21 15:52 73 19 92 04/05/21 15:41 37.1 C 74 119/71 93 04/05/21 15:11 37.2 C 78 119/70 94 04/05/21 15:08 77 04/05/21 14:41 37.2 C 80 135/74 92 04/05/21 14:11 37.2 C 84 132/75 90 04/05/21 13:41 37.1 C 89 130/76 92 04/05/21 13:11 37.2 C 92 H 139/88 93 04/05/21 12:41 37.2 C 92 H 177/88 H 94 04/05/21 12:26 37.1 C 92 H 159/82 H 97 04/05/21 12:18 66 25 H 94 04/05/21 12:11 37.1 C 84 169/85 H 90 04/05/21 11:56 90 175/113 H 96 04/05/21 11:41 37.1 C 76 165/85 H 88 L 04/05/21 11:11 37.0 C 72 166/93 H 91 04/05/21 10:41 37.0 C 64 136/71 89 L 04/05/21 10:11 37.0 C 67 144/73 H 90 04/05/21 10:00 88 L 04/05/21 09:41 37.0 C 72 130/64 90 04/05/21 09:11 37.1 C 73 129/64 89 L 04/05/21 08:41 37.1 C 70 133/68 89 L 04/05/21 08:11 37.0 C 71 144/74 H 90 04/05/21 08:00 66 04/05/21 07:43 75 25 H 90 04/05/21 07:37 36.9 C 75 159/85 H 89 L 04/05/21 07:11 36.9 C 79 169/89 H 89 L 04/05/21 06:41 36.9 C 68 136/74 91 Laboratory Results 04/05/21 04/05/21 04/05/21 Range/Units 16:28 11:48 07:39 WBC (4.8-10.8) K/uL RBC (4.7-6.1) M/uL Hgb (14.0-18.0) g/dL Hct (42-52) % MCV (80-100) fL MCH (25-34) pg MCHC (32-36) g/dL RDW Std Deviation (36.4-46.3) fL RDW Coeff of Sujit (11.5-14.5) % Plt Count (130-400) K/uL MPV (7.4-10.4) fL Immature Gran % (Auto) % Neut % (Auto) % Lymph % (Auto) % Edmunds % (Auto) % Eos % (Auto) % Baso % (Auto) % Neut # (Auto) (1.4-6.5) K/uL Lymph # (Auto) (1.2-3.4) K/uL Edmunds # (Auto) (0.11-0.59) K/uL Eos # (Auto) (0-0.5) K/uL Baso # (Auto) (0-0.2) K/uL Immature Gran # (Auto) (0.00-0.02) K/uL Sample Site POC pH (7.35-7.45) POC pCO2 (35-46) mmHg POC pO2 (80-95) mmHg POC HCO3 (19-24) iraida/L POC Total CO2 (24-31) mmol/L POC Base Excess (-9-1.8) iraida/L POC ABG O2 Sat (90-95) % Sher Test O2 Delivery Device POC O2 Rate Minute Ventilation POC FiO2 % Tidal Volume PEEP Sodium (136-145) mmol/L Potassium (3.5-5.1) mmol/L Chloride (98-107) mmol/L Carbon Dioxide (21-32) mmol/L Anion Gap (3-11) BUN (7-18) mg/dl Creatinine (0.6-1.4) mg/dl Est Cr Clr Drug Dosing ml/min Est GFR ( Amer) ml/min Est GFR (Non-Af Amer) ml/min BUN/Creatinine Ratio (10-20) Glucose (70-99) mg/dl POC Glucose 220 H 186 H 132 H (70-99) mg/dl Calcium (8.5-10.1) mg/dl Phosphorus (2.5-4.9) mg/dl Magnesium (1.8-2.4) mg/dl 04/05/21 04/05/21 04/05/21 Range/Units 05:21 04:41 04:41 WBC 9.32 (4.8-10.8) K/uL RBC 3.74 L (4.7-6.1) M/uL Hgb 11.3 L (14.0-18.0) g/dL Hct 34.0 L (42-52) % MCV 90.9 (80-100) fL MCH 30.2 (25-34) pg MCHC 33.2 (32-36) g/dL RDW Std Deviation 46.8 H (36.4-46.3) fL RDW Coeff of Sujit 14.2 (11.5-14.5) % Plt Count 204 (130-400) K/uL MPV 9.9 (7.4-10.4) fL Immature Gran % (Auto) 1.0 % Neut % (Auto) 76.1 % Lymph % (Auto) 13.2 % Edmunds % (Auto) 8.8 % Eos % (Auto) 0.8 % Baso % (Auto) 0.1 % Neut # (Auto) 7.10 H (1.4-6.5) K/uL Lymph # (Auto) 1.23 (1.2-3.4) K/uL Edmunds # (Auto) 0.82 H (0.11-0.59) K/uL Eos # (Auto) 0.07 (0-0.5) K/uL Baso # (Auto) 0.01 (0-0.2) K/uL Immature Gran # (Auto) 0.09 H (0.00-0.02) K/uL Sample Site Art Line POC pH 7.41 (7.35-7.45) POC pCO2 44 (35-46) mmHg POC pO2 63 L (80-95) mmHg POC HCO3 28 H (19-24) iraida/L POC Total CO2 29 (24-31) mmol/L POC Base Excess 4.0 H (-9-1.8) iraida/L POC ABG O2 Sat 92.0 (90-95) % Sher Test NA O2 Delivery Device Ventilator POC O2 Rate 18 Minute Ventilation 8.9 POC FiO2 40 % Tidal Volume 520 PEEP 8 Sodium 144 (136-145) mmol/L Potassium 3.7 (3.5-5.1) mmol/L Chloride 112 H (98-107) mmol/L Carbon Dioxide 27 (21-32) mmol/L Anion Gap 5.0 (3-11) BUN 45 H (7-18) mg/dl Creatinine 0.94 (0.6-1.4) mg/dl Est Cr Clr Drug Dosing 105.7 ml/min Est GFR ( Amer) 101.7 ml/min Est GFR (Non-Af Amer) 87.8 ml/min BUN/Creatinine Ratio 47.6 H (10-20) Glucose 139 H (70-99) mg/dl POC Glucose (70-99) mg/dl Calcium 8.4 L (8.5-10.1) mg/dl Phosphorus 3.5 (2.5-4.9) mg/dl Magnesium 2.6 H (1.8-2.4) mg/dl 04/05/21 04/05/21 04/04/21 Range/Units 03:51 00:04 20:19 WBC (4.8-10.8) K/uL RBC (4.7-6.1) M/uL Hgb (14.0-18.0) g/dL Hct (42-52) % MCV (80-100) fL MCH (25-34) pg MCHC (32-36) g/dL RDW Std Deviation (36.4-46.3) fL RDW Coeff of Sujit (11.5-14.5) % Plt Count (130-400) K/uL MPV (7.4-10.4) fL Immature Gran % (Auto) % Neut % (Auto) % Lymph % (Auto) % Edmunds % (Auto) % Eos % (Auto) % Baso % (Auto) % Neut # (Auto) (1.4-6.5) K/uL Lymph # (Auto) (1.2-3.4) K/uL Edmunds # (Auto) (0.11-0.59) K/uL Eos # (Auto) (0-0.5) K/uL Baso # (Auto) (0-0.2) K/uL Immature Gran # (Auto) (0.00-0.02) K/uL Sample Site POC pH (7.35-7.45) POC pCO2 (35-46) mmHg POC pO2 (80-95) mmHg POC HCO3 (19-24) iraida/L POC Total CO2 (24-31) mmol/L POC Base Excess (-9-1.8) iraida/L POC ABG O2 Sat (90-95) % Sher Test O2 Delivery Device POC O2 Rate Minute Ventilation POC FiO2 % Tidal Volume PEEP Sodium (136-145) mmol/L Potassium (3.5-5.1) mmol/L Chloride (98-107) mmol/L Carbon Dioxide (21-32) mmol/L Anion Gap (3-11) BUN (7-18) mg/dl Creatinine (0.6-1.4) mg/dl Est Cr Clr Drug Dosing ml/min Est GFR ( Amer) ml/min Est GFR (Non-Af Amer) ml/min BUN/Creatinine Ratio (10-20) Glucose (70-99) mg/dl POC Glucose 145 H 155 H 173 H (70-99) mg/dl Calcium (8.5-10.1) mg/dl Phosphorus (2.5-4.9) mg/dl Magnesium (1.8-2.4) mg/dl Sputum culture with group G beta strep Blood cultures-negative PG Care Time/CCT Total # of Minutes Spent Total Time Spent with Patient: Total time spent is greater than 50% in coordination of care (as documented) at patient's floor/unit and/or counseling patient: Coding Level of Care Code 82432 Subseq Hosp Care Lvl 1 Diagnoses Acute respiratory failure with hypoxia J96.01 Fever R50.9 Pneumonia due to COVID-19 virus U07.1; J12.82 Pneumomediastinum J98.2 ROSARIO (acute kidney injury) N17.9 Bradycardia R00.1 Transaminitis R74.01 Hypokalemia E87.6 BPH loc w urin obs/LUTS N40.1 Hypotension I95.9
[2021-04-06] MEDS: propofoL 1,000 MG/100 ML VIAL IV SCH ×12 (00:25→23:08)
[2021-04-06] MEDS: INSULIN ASPART 100 UNITS/ML 3 ML PEN SC SCH ×6 (00:25→20:09)
[2021-04-06] MEDS: ARTIFICIAL TEARS OP OINT 3.5 GM TUBE OP SCH ×8 (00:26→20:15)
[2021-04-06] MEDS: hydrALAZINE HCL 20 MG/ML VIAL IV PRN ×2 (00:51→17:11)
[2021-04-06] MEDS ORDERED: VECURONIUM BROMIDE 10 MG VIAL IV STA (01:20)
[2021-04-06] MEDS ORDERED: VECURONIUM BROMIDE 10 MG VIAL IV ONE ×3 (01:20→21:45)
[2021-04-06] MEDS ORDERED: MIDAZOLAM BOLUS FROM BAG IV PRN (01:34)
[2021-04-06] MEDS ORDERED: hydrALAZINE HCL 20 MG/ML VIAL IV STA (01:36)
[2021-04-06] MEDS: TUBE FEEDING WATER FLUSH GT SCH ×6 (01:38→20:15)
[2021-04-06] MEDS: MIDAZOLAM HCL 125 MG/250 ML BAG IV SCH (02:26)
[2021-04-06] MEDS ORDERED: METOPROLOL TARTRATE 1 MG/ML VIAL IV STA ×3 (02:46→18:00)
--- NOTE | 2021-04-06 02:46 | Communication Note ---
Date of Service: April 06, 2021 Patient was noted to flip into A. fib with rapid rates into the 140s. Systolics maintained in the 120s. Earlier in the evening, the patient had experienced episodes of extreme hypertension into the 200s which did resolve with increasing sedation. Patient was dyssynchronous with the ventilator. After this had been improved, the patient developed A. fib with a relative substantial drop in systolic blood pressure. At this point, I did present at bedside. Patient did have equal breath sounds bilaterally. Chest x-ray was ordered as was 5 mg IV metoprolol. Initial 2.5 mg dose did improve heart rate slightly. The additional 2.5 mg was provided. A.m. labs were obtained. Patient was provided 40 mg IV Lasix given review of his chest x-ray which did demonstrate increasing pulmonary edema from previous days x-ray per my interpretation. Orders were placed for Pako-Synephrine in the event the patient's blood pressure continued to decline. Patient was noted to be febrile. Patient provided his oral dosing of acetaminophen. I am genuinely concerned for worsening pulmonary status in the setting of COVID-19 pneumonia. The patient is currently covered broadly with antibiotics. Aggressive ventilator settings are already in place. I actually did increase the patient's ventilator settings to a PEEP of 12 and 80% FiO2 which was a substantial jump from earlier in the evening as well. Patient had improvements heart rate into the 1 teens. Blood pressures have been appropriate. Patient started putting out good urine as well. At this point, we will continue to monitor hemodynamics closely and titrate ventilator settings as tolerated. I have personally spent 45 minutes of critical care time in the direct management of this patient. This is a life/limb threatening event. This includes time spent evaluating patient, direct bedside care, chart review, placing orders, interpretation of diagnostic studies, discussion with consultants, patient, and family members, as well as other required patient management activities. This time is exclusive of all separately billable procedures, and teaching time and separate from and in addition to any other critical care service time. Coding Level of Care Code Critical Care 1st 30-74 mins Time Spent (min) 45
[2021-04-06] MEDS ORDERED: FUROSEMIDE 40 MG in SYRINGE 0 ML IV ONE ×2 (03:33→09:54)
[2021-04-06] MEDS ORDERED: STAT IV Infusion **Titration per Protocol STA (03:33)
[2021-04-06] MEDS ORDERED: FUROSEMIDE 40 MG/4 ML VIAL IV ONE ×2 (03:34→03:45)
[2021-04-06 03:42] LABS: Hematocrit (blood only) 39.9 % (42-52); Hemoglobin 13.4 g/dL (14.0-18.0); Mean Corpuscular Hemoglobin 30.9 pg (25-34); Mean Corpuscular Hgb Conc 33.6 g/dL (32-36); Mean Corpuscular Volume 92.1 fL (80-100); Platelet Count 309 K/uL (130-400); RDW Coefficient of Variation 14.4 % (11.5-14.5); RDW Standard Deviation 49.1 fL (36.4-46.3); Red Blood Count 4.33 M/uL (4.7-6.1); White Blood Count 23.23 K/uL (4.8-10.8)
[2021-04-06 03:54] LABS: Albumin Level 2.3 gm/dl (3.4-5.0); BUN Creatinine Ratio 36.7 (10-20); Creatinine Clr Calc Pharmacy 91.2 ml/min; Est GFR (African American) 84.1 ml/min; Est GFR (Non-African American) 72.6 ml/min; Magnesium 2.4 mg/dl (1.8-2.4); Potassium 3.9 mmol/L (3.5-5.1)
[2021-04-06 04:03] LABS: Bilirubin Direct 0.6 mg/dl (0-0.2); Bilirubin,Total 0.9 mg/dl (0.2-1); Phosphorus 5.3 mg/dl (2.5-4.9); Total Protein 6.6 gm/dl (6.4-8.2)
[2021-04-06] MEDS: PHENYLEPHRINE HCL 20 MG in DEXTROSE 5% 500 ML IV SCH ×2 (04:12→05:50)
[2021-04-06 04:31] LABS: ALC (manual) 0.63 K/uL (1.2-3.4); ANC (manual) 18.28 K/uL (1.4-6.5); Dohle Bodies 1+; Lymphocytes # (manual) 0.63 K/uL (1.2-3.4); Lymphocytes % (manual) 2.7 %; Metamyelocytes # (manual) 0.21 K/uL (0-0); Metamyelocytes % (manual) 0.9 %; Monocytes # (manual) 3.69 K/uL (0.11-0.59); Monocytes % (manual) 15.9 %; Myelocytes # (manual) 0.42 K/uL (0-0); Myelocytes % (manual) 1.8 %; Neutrophils # (manual) 18.28 K/uL (1.4-6.5); Neutrophils % (manual) 78.7 %
[2021-04-06] MEDS: PIPERACILLIN/TAZOBACTAM 4.5 GM in DEXTROSE 5% 100 ML IV SCH (04:57)
[2021-04-06] MEDS: fentaNYL citrate 2,500 MCG/250 ML BAG IV SCH ×2 (04:58→23:08)
[2021-04-06 05:59] LABS: iSTAT Art Bld Gas pCO2 Correct 69 mmHg (35-46); iSTAT Art Bld Gas pH Corrected 7.263 (7.35-7.45); iSTAT Arterial Blood Gas HCO3 31 meg/L (19-24); iSTAT Arterial Blood Gas pCO2 65 mmHg (35-46); iSTAT Arterial Blood Gas pH 7.28 (7.35-7.45); iSTAT Arterial Blood Gas pO2 85 mmHg (80-95); iSTAT Arterial Blood Gas pO2 C 92; iSTAT Carbon Dioxide 32 mmol/L (24-31); iSTAT FiO2 80 %; iSTAT Hematocrit 37 % (42-52); iSTAT Hemoglobin 12.6 g/dl (14.0-18.0); iSTAT Site Art Line; iSTAT Sodium 142 mmol/L (135-144)
[2021-04-06] MEDS: dexAMETHasone 10 MG in SYRINGE 0 ML IV SCH (07:41)
[2021-04-06] MEDS: LANSOPRAZOLE 30 MG SOLTAB OG SCH ×2 (07:42→20:15)
[2021-04-06] MEDS: GABAPENTIN 250 MG/5 ML 470 ML BTL PO SCH ×3 (07:42→20:13)
[2021-04-06] MEDS: ENOXAPARIN INJ 40 MG/0.4 ML SYR SQ SCH ×2 (07:42→20:14)
[2021-04-06 07:49] LABS: iSTAT Art Bld Gas pCO2 Correct 72 mmHg (35-46); iSTAT Art Bld Gas pH Corrected 7.224 (7.35-7.45); iSTAT Arterial Blood Gas HCO3 29 meg/L (19-24); iSTAT Arterial Blood Gas pCO2 69 mmHg (35-46); iSTAT Arterial Blood Gas pH 7.23 (7.35-7.45); iSTAT Arterial Blood Gas pO2 91 mmHg (80-95); iSTAT Arterial Blood Gas pO2 C 95; iSTAT Carbon Dioxide 31 mmol/L (24-31); iSTAT FiO2 80 %; iSTAT Hematocrit 37 % (42-52); iSTAT Hemoglobin 12.6 g/dl (14.0-18.0); iSTAT Site Art Line; iSTAT Sodium 141 mmol/L (135-144)
--- NOTE | 2021-04-06 08:07 | Critical Care Progress Note ---
Date of Service April 06, 2021 Assessment & Plan (1) Acute respiratory failure with hypoxia: Plan: Reason Critically Ill: 61-year-old male with past medical history of hypertension admitted to the hospital for COVID-19 pneumonia and acute hypoxic respiratory failure, intubated 03/27/2021 PLAN: NEURO: Neuromuscular blockade with cisatracurium -- stopped 03/31/21. Patient getting as needed vecuronium. - Currently on propofol, fentanyl and midazolam (Midazolam added 03/29/2021 as patient was very restless) - Started on Pako-Synephrine overnight. Will discontinue Pako-synephrine today. - Discontinue versed. Fentanyl decreased to 125. - Start Precedex protocol CT Head 04/02/21: Negative for any acute abnormality. RESPIRATORY: VDRF with acute hypoxic respiratory failure, secondary to multilobar COVID-19 pneumonia - COVID-19 PCR positive 03/16/2021 - CRP 18.2 --> 9.75 --> 1.63 - S/p Tocilizumab 03/21/2021 - Intubated 03/27/2021; tracheostomy performed 04/05/21 - Continue with lung protective ventilation - High PEEP, low tidal volume to keep Plateau < 30 with permissive hypercapnea if need be. - Current settings with rate 24, 520, rate 24, PEEP 12 - Monitor ABGs; next ABG ordered for noon ARDS net high-dose steroid protocol - Completed dexamethasone 20mg x5 days, 10mg x5 days (today, 04/06 is last day of dexamethasone 10mg) - Per medication hx review, patient is on prednisone 20mg po daily; on further review, it appears that the prednisone is scheduled 20mg po daily prn for gout flares but last documentation states no recent gout flares and external med refill history does not show recent fill of prednisone. Therefore, no need to taper at this point. Will watch for signs of adrenal insufficiency. [facility] as well as [facility] team where contacted on 03/28/2021, unfortunately he is not a candidate from either side. - Tracheostomy performed 04/05/21 --Pneumomediastinum--> resolved No signs of pneumothorax on the chest x-ray CARDIOVASCULAR: Intermittent hypertension - Continue home amlodipine - Hydralazine 10mg IV q6h prn for SBP > 160 Intermittent hypotension: Resolved - likely sec to sedation - c/w vasopressor as needed to keep MAP>65 Atrial fibrillation with RVR - Resolved after 5mg metoprolol - Continue to monitor on tele Fluids/Renal: - Goal to remain net negative - Diuresis as needed - Additional 40 mg IV lasix provided today ID: New onset fever 04/02/2021, resolved 04/03 -Septic work-up ordered --> negative to date -Nasal MRSA -ve -Procalcitonin 0.49 --> 0.63 --> 0.38 Leukocytosis, recurrent with recurrent fever - Leukocytosis had resolved but recurred today at 23.23 (yesterday was 9.32) - Sputum cultures with Group G Beta strep - Will change IV Zosyn to cefepime + vancomycin Recurrent fever 04/06 - Repeat nasal MRSA - Abx therapy as noted above with cefepime and vancomycin - Will check BLE venous doppler to r/o VTE GI/Nutrition: Transaminitis - Continue to follow c/w tube feeds, increase to 30 mL q4h Constipation -- no bowel movement since 03/26 - lactulose 30mg administered 04/05 without successful BM - 60 mL mineral oil ordered today 04/06. Will also start on daily Senna 17.6mg po BID. - Methylnaltrexone ordered Heme: Continue to monitor Endocrine: ICU hyperglycemia protocol Will loosen novolog requirements --Prophylaxis VTE: Lovenox GI: Lansoprazole Lines: Left radial, right subclavian, positive Rogers Diet: continue tube feeds Patient's Mrs. Emperatriz Neri [phone] (2) Pneumonia due to COVID-19 virus: Admission and Anticipated Discharge Date Admission Date: March 20, 2021 Supervising Physician Co-Signing Physician Notes Dr. Merchant was resident physician during care of patient. I separately evaluated patient for ortiz portions of the history and the exam. I was present during the critical portion of medical decision making, and I discussed the case with the resident. I generally agree with the findings and plan. Patient had overnight event of atrial fibrillation, changing antibiotics for fever and obtaining bilateral venous duplex ultrasounds. No longer need anaerobic coverage will convert from Zosyn to cefepime. Oxygen requirements worse, attempt diuresis today goal net negative. Decrease steroids unsure clear why he was on 20 mg as an outpatient but will decrease to 15 then 10 then 5 and further investigate etiology of steroids Subjective Pt intubated and sedated. Per report overnight patient had episode of afib with RVR in the 140s. This was controlled with metoprolol 5mg and he was also started on neosynephrine. Patient's vent management changed to FiO2 of 80%, rate 24, peep 12. He was also given IV lasix. Review of Systems Review of Systems: Unobtainable due to reduced consciousness (currently sedated) Physical Exam Physical Exam: Please see attending attestation. Results & Data Results & Data ([facility]) Vital Signs (Past 12 Hours) Vital Signs Temp Pulse Resp BP Pulse Ox 04/06/21 07:25 111 H 24 90 04/06/21 07:14 116 H 04/06/21 07:11 37.7 C H 116 H 119/85 91 04/06/21 06:11 20 04/06/21 05:11 38.1 C H 126 H 139/75 91 04/06/21 04:11 38.1 C H 124 H 139/81 90 04/06/21 04:08 151 H 168/87 H 04/06/21 04:00 109/57 L 04/06/21 03:20 141 H 26 H 89 L 04/06/21 03:08 37.9 C H 137 H 113/71 88 L 04/06/21 02:11 37.7 C H 115 H 184/90 H 91 04/06/21 01:11 37.6 C H 113 H 197/101 H 89 L 04/06/21 00:11 37.4 C 78 168/87 H 90 04/06/21 00:00 188/76 H 04/05/21 23:41 37.4 C 75 150/81 H 91 04/05/21 23:11 37.3 C 73 121/70 89 L 04/05/21 22:41 37.3 C 83 175/89 H 91 04/05/21 22:28 78 27 H 91 04/05/21 22:11 37.3 C 71 128/71 90 04/05/21 21:41 37.2 C 73 140/79 91 04/05/21 21:11 37.2 C 74 148/83 H 91 04/05/21 20:41 37.1 C 79 146/86 H 90 04/05/21 20:11 37.2 C 70 121/70 91 Laboratory Results 04/06/21 04/06/21 04/06/21 Range/Units 07:48 07:09 05:45 WBC (4.8-10.8) K/uL RBC (4.7-6.1) M/uL Hgb (14.0-18.0) g/dL POC Hgb 12.6 L 12.6 L (14.0-18.0) g/dl Hct (42-52) % POC Hct 37 L 37 L (42-52) % MCV (80-100) fL MCH (25-34) pg MCHC (32-36) g/dL RDW Std Deviation (36.4-46.3) fL RDW Coeff of Sujit (11.5-14.5) % Plt Count (130-400) K/uL MPV (7.4-10.4) fL Neutrophils % (Manual) % Lymphocytes % (Manual) % Monocytes % (Manual) % Metamyelocytes % (Man) % Myelocytes % (Man) % Neutrophils # (Manual) (1.4-6.5) K/uL Total Absolute Neuts (1.4-6.5) K/uL Lymphocytes # (Manual) (1.2-3.4) K/uL Total Abs Lymphocytes (1.2-3.4) K/uL Monocytes # (Manual) (0.11-0.59) K/uL Metamyelocytes # (Man) (0-0) K/uL Myelocytes # (Manual) (0-0) K/uL Dohle Bodies Sample Site Art Line Art Line POC pH 7.23 L 7.28 L (7.35-7.45) POC pCO2 69 H 65 H (35-46) mmHg POC pO2 91 85 (80-95) mmHg POC HCO3 29 H 31 H (19-24) iraida/L POC Total CO2 31 32 H (24-31) mmol/L POC Base Excess 2.0 H 4.0 H (-9-1.8) iraida/L ABG pH (Temp Correct) 7.224 L 7.263 L (7.35-7.45) ABG pCO2 (Temp Corrct 72 H 69 H (35-46) mmHg POC ABG pO2 at Pt Temp 95 92 POC ABG O2 Sat 95.0 95.0 (90-95) % Sher Test NA NA O2 Delivery Device Ventilator Ventilator POC O2 Rate 20 18 POC FiO2 80 80 % Tidal Volume 520 520 PEEP 14 12 POC Sodium 141 142 (135-144) mmol/L Sodium (136-145) mmol/L POC Potassium 4.0 4.0 (3.3-5.0) mmol/L Potassium (3.5-5.1) mmol/L Chloride (98-107) mmol/L Carbon Dioxide (21-32) mmol/L Anion Gap (3-11) BUN (7-18) mg/dl Creatinine (0.6-1.4) mg/dl Est Cr Clr Drug Dosing ml/min Est GFR ( Amer) ml/min Est GFR (Non-Af Amer) ml/min BUN/Creatinine Ratio (10-20) Glucose (70-99) mg/dl POC Glucose 192 H (70-99) mg/dl Calcium (8.5-10.1) mg/dl Phosphorus (2.5-4.9) mg/dl Magnesium (1.8-2.4) mg/dl Total Bilirubin (0.2-1) mg/dl Direct Bilirubin (0-0.2) mg/dl AST (15-37) U/L ALT (12-78) U/L Alkaline Phosphatase (45-117) U/L Total Protein (6.4-8.2) gm/dl Albumin (3.4-5.0) gm/dl Triglycerides (0-150) mg/dl 04/06/21 04/06/21 04/06/21 Range/Units 03:26 03:26 00:22 WBC 23.23 H D (4.8-10.8) K/uL RBC 4.33 L (4.7-6.1) M/uL Hgb 13.4 L (14.0-18.0) g/dL POC Hgb (14.0-18.0) g/dl Hct 39.9 L (42-52) % POC Hct (42-52) % MCV 92.1 (80-100) fL MCH 30.9 (25-34) pg MCHC 33.6 (32-36) g/dL RDW Std Deviation 49.1 H (36.4-46.3) fL RDW Coeff of Sujit 14.4 (11.5-14.5) % Plt Count 309 D (130-400) K/uL MPV 10.0 (7.4-10.4) fL Neutrophils % (Manual) 78.7 % Lymphocytes % (Manual) 2.7 % Monocytes % (Manual) 15.9 % Metamyelocytes % (Man) 0.9 % Myelocytes % (Man) 1.8 % Neutrophils # (Manual) 18.28 H (1.4-6.5) K/uL Total Absolute Neuts 18.28 H (1.4-6.5) K/uL Lymphocytes # (Manual) 0.63 L (1.2-3.4) K/uL Total Abs Lymphocytes 0.63 L (1.2-3.4) K/uL Monocytes # (Manual) 3.69 H (0.11-0.59) K/uL Metamyelocytes # (Man) 0.21 H (0-0) K/uL Myelocytes # (Manual) 0.42 H (0-0) K/uL Dohle Bodies 1+ Sample Site POC pH (7.35-7.45) POC pCO2 (35-46) mmHg POC pO2 (80-95) mmHg POC HCO3 (19-24) iraida/L POC Total CO2 (24-31) mmol/L POC Base Excess (-9-1.8) iraida/L ABG pH (Temp Correct) (7.35-7.45) ABG pCO2 (Temp Corrct (35-46) mmHg POC ABG pO2 at Pt Temp POC ABG O2 Sat (90-95) % Sher Test O2 Delivery Device POC O2 Rate POC FiO2 % Tidal Volume PEEP POC Sodium (135-144) mmol/L Sodium 141 (136-145) mmol/L POC Potassium (3.3-5.0) mmol/L Potassium 3.9 (3.5-5.1) mmol/L Chloride 111 H (98-107) mmol/L Carbon Dioxide 25 (21-32) mmol/L Anion Gap 5.0 (3-11) BUN 40 H (7-18) mg/dl Creatinine 1.10 (0.6-1.4) mg/dl Est Cr Clr Drug Dosing 91.2 ml/min Est GFR ( Amer) 84.1 ml/min Est GFR (Non-Af Amer) 72.6 ml/min BUN/Creatinine Ratio 36.7 H (10-20) Glucose 189 H (70-99) mg/dl POC Glucose 121 H (70-99) mg/dl Calcium 9.0 (8.5-10.1) mg/dl Phosphorus 5.3 H D (2.5-4.9) mg/dl Magnesium 2.4 (1.8-2.4) mg/dl Total Bilirubin 0.9 (0.2-1) mg/dl Direct Bilirubin 0.6 H (0-0.2) mg/dl AST 77 H (15-37) U/L ALT 137 H (12-78) U/L Alkaline Phosphatase 228 H (45-117) U/L Total Protein 6.6 (6.4-8.2) gm/dl Albumin 2.3 L (3.4-5.0) gm/dl Triglycerides 344 H (0-150) mg/dl 04/05/21 04/05/21 04/05/21 Range/Units 20:33 16:28 11:48 WBC (4.8-10.8) K/uL RBC (4.7-6.1) M/uL Hgb (14.0-18.0) g/dL POC Hgb (14.0-18.0) g/dl Hct (42-52) % POC Hct (42-52) % MCV (80-100) fL MCH (25-34) pg MCHC (32-36) g/dL RDW Std Deviation (36.4-46.3) fL RDW Coeff of Sujit (11.5-14.5) % Plt Count (130-400) K/uL MPV (7.4-10.4) fL Neutrophils % (Manual) % Lymphocytes % (Manual) % Monocytes % (Manual) % Metamyelocytes % (Man) % Myelocytes % (Man) % Neutrophils # (Manual) (1.4-6.5) K/uL Total Absolute Neuts (1.4-6.5) K/uL Lymphocytes # (Manual) (1.2-3.4) K/uL Total Abs Lymphocytes (1.2-3.4) K/uL Monocytes # (Manual) (0.11-0.59) K/uL Metamyelocytes # (Man) (0-0) K/uL Myelocytes # (Manual) (0-0) K/uL Dohle Bodies Sample Site POC pH (7.35-7.45) POC pCO2 (35-46) mmHg POC pO2 (80-95) mmHg POC HCO3 (19-24) iraida/L POC Total CO2 (24-31) mmol/L POC Base Excess (-9-1.8) iraida/L ABG pH (Temp Correct) (7.35-7.45) ABG pCO2 (Temp Corrct (35-46) mmHg POC ABG pO2 at Pt Temp POC ABG O2 Sat (90-95) % Sher Test O2 Delivery Device POC O2 Rate POC FiO2 % Tidal Volume PEEP POC Sodium (135-144) mmol/L Sodium (136-145) mmol/L POC Potassium (3.3-5.0) mmol/L Potassium (3.5-5.1) mmol/L Chloride (98-107) mmol/L Carbon Dioxide (21-32) mmol/L Anion Gap (3-11) BUN (7-18) mg/dl Creatinine (0.6-1.4) mg/dl Est Cr Clr Drug Dosing ml/min Est GFR ( Amer) ml/min Est GFR (Non-Af Amer) ml/min BUN/Creatinine Ratio (10-20) Glucose (70-99) mg/dl POC Glucose 167 H 220 H 186 H (70-99) mg/dl Calcium (8.5-10.1) mg/dl Phosphorus (2.5-4.9) mg/dl Magnesium (1.8-2.4) mg/dl Total Bilirubin (0.2-1) mg/dl Direct Bilirubin (0-0.2) mg/dl AST (15-37) U/L ALT (12-78) U/L Alkaline Phosphatase (45-117) U/L Total Protein (6.4-8.2) gm/dl Albumin (3.4-5.0) gm/dl Triglycerides (0-150) mg/dl Critical Care Time I have personally spent 45 minutes of critical care time in the direct management of this patient. This is a life/limb threatening event. This includes time spent evaluating patient, direct bedside care, chart review, placing orders, interpretation of diagnostic studies, discussion with consultants, patient, and/or family members regarding treatment decisions, as well as other required patient management activities. This time is exclusive of all separately billable procedures, and teaching time and separate from and in addition to any other critical care service time. Resident Activity Tracking Resident Involvement: Resident Care Provided Care Provided: [facility]
[2021-04-06] MEDS ORDERED: SENNOSIDES 8.8 MG/5 ML UDC PO SCH (09:00)
[2021-04-06] MEDS ORDERED: SENNA 8.6 MG TAB PO SCH (09:00)
--- NOTE | 2021-04-06 09:34 | XRay Report ---
XR chest 1V portable CLINICAL HISTORY: hypoxia COMPARISON STUDY: April 05, 2021 FINDINGS: No pneumothorax. No definite pleural effusion is seen however bilateral hemidiaphragms are partially silhouetting by s urrounding opacities. Redemonstration of the mixed reticular and airspace opacities throughout bilateral lungs most promine nt at the bases and associated with volume loss, overall unchanged since prior. Cardiac silhouette is stable and partially obscured by surrounding opacities. Pulmonary vasculature is obscured.. Osseous structures: unremarkable vertebral bodies are poorly seen. Interval removal of the endotracheal tube and placement of tracheostomy tube with its tip projecting to the tracheal air column. Interval removal of the gastric tube and placement of the enteric feeding tube, its distal aspect is not well seen due to underpenetration. Stable position of the right subclavian central venous catheter. IMPRESSION: 1. Stable opacities throughout bilateral lungs. 2. Interval removal of an the endotracheal tube and placement of tracheostomy tube. The rest of supp ort apparatus as above. ACT 112: Negative or not required by law. The above report was generated using voice recognition software. It may contain grammatical, syntax o r spelling errors. Electronically signed by: Smiley Eubanks DO 04/06/2021 9:33 AM
--- NOTE | 2021-04-06 09:55 | Billing Data ---
Date of Service April 06, 2021 Coding Level of Care Code Critical Care 1st - mins
[2021-04-06] MEDS ORDERED: SENNOSIDES 8.8 MG/5 ML UDC PO ONE (10:00)
[2021-04-06] MEDS ORDERED: VANCOMYCIN CONSULT ACTIVE PRN (10:04)
[2021-04-06] MEDS ORDERED: VANCOMYCIN HCL 2,750 MG in SODIUM CHLORIDE 0.9% 500 ML IV ONE (10:15)
[2021-04-06] MEDS ORDERED: MINERAL OIL 30 ML UDC PO ONE (10:15)
[2021-04-06] MEDS ORDERED: METHYLNALTREXONE BROMIDE 12 MG/0.6 ML VIAL SQ ONE (10:15)
[2021-04-06] MEDS: DEXMEDETOMIDINE HCL 200 MCG in SODIUM CHLORIDE 0.9% 48 ML IV SCH ×6 (10:53→23:09)
--- NOTE | 2021-04-06 11:52 | Ultrasound Report ---
BILATERAL LOWER EXTREMITY VENOUS DOPPLER HISTORY: Lower extremity swelling COVID and fever COMPARISON STUDY: None. FINDINGS: There is normal compressibility, flow, and augmentation within the bilateral lower extremit y deep venous systems. Subcutaneous edema of the lower legs. IMPRESSION: No DVT within the right or left lower extremity. ACT 112: Negative or not required by law. Electronically signed by: Arpit Dutton M.D. 04/06/2021 11:51 AM
[2021-04-06 12:02] LABS: iSTAT Art Bld Gas pCO2 Correct 46 mmHg (35-46); iSTAT Art Bld Gas pH Corrected 7.386 (7.35-7.45); iSTAT Arterial Blood Gas HCO3 28 meg/L (19-24); iSTAT Arterial Blood Gas pCO2 44 mmHg (35-46); iSTAT Arterial Blood Gas pO2 76 mmHg (80-95); iSTAT Arterial Blood Gas pO2 C 82; iSTAT Carbon Dioxide 29 mmol/L (24-31); iSTAT FiO2 60 %; iSTAT Hematocrit 36 % (42-52); iSTAT Hemoglobin 12.2 g/dl (14.0-18.0); iSTAT Potassium 3.9 mmol/L (3.3-5.0); iSTAT Site Art Line; iSTAT Sodium 141 mmol/L (135-144)
[2021-04-06] MEDS: CEFEPIME 2,000 MG in SYRINGE 0 ML IV SCH (14:25)
[2021-04-06] MEDS: SODIUM CHLORIDE 0.9% 1000ML 1,000 ML IV SCH (16:21)
[2021-04-06] MEDS: ACETAMINOPHEN 500 MG TAB PO PRN (16:41)
[2021-04-06] MEDS ORDERED: METOPROLOL TARTRATE 1 MG/ML VIAL IV ONE (17:32)
--- NOTE | 2021-04-06 18:39 | XRay Report ---
XR chest 1V portable CLINICAL HISTORY: increasing respiratory requirement COMPARISON STUDY: Chest radiograph performed earlier today. FINDINGS: Tip of feeding tube is below the lower aspect of this image but at least within the stomach . Right-sided central line is in place. There is a tracheostomy tube. No pneumothorax or pleural effu navin is noted. Extensive bilateral airspace opacities are similar to prior exam. IMPRESSION: No significant change in extensive bilateral airspace opacities. ACT 112: Negative or not required by law. Electronically signed by: Floyd Neal M.D. 04/06/2021 6:37 PM
--- NOTE | 2021-04-06 18:46 | Hospitalist Progress Note ---
Date of Service April 06, 2021 Assessment & Plan (1) Acute respiratory failure with hypoxia: Plan: due to COVID 19 pneumonia, bilateral infiltrates on CXR Was requiring prone positioning and BiPAP while awake, but then weaned down to wall high flow nasal cannula at 11-15 L on 03/23 However, on 03/24 worsened again was placed back on Vapotherm high flow nasal cannula On 03/25, requiring higher amounts of oxygen at 40 L and up to 80 % FiO2 to maintain pulse ox 90-91% On 03/26 switched to Ventilator HFNC at 60L, 100% FiO2 to keep POx>88%---> continued to decompensate on the morning of 03/27 and was intubated and proned Pneumomediastinum is now resolved on x-ray Status post tocilizumab on 03/21 CRP trended downward Completed a course of high-dose dexamethasone initially with 10 mg daily and then on 03/28, increased to 20 mg daily x5 days, then 10 mg daily x5 days IV Lasix as needed to keep in a negative fluid balance, 40mg IV given 04/03 and again on 04/05, 04/06 Ventilator management as per clinical trials data coordinator Has failed multiple SBTs Now status post tracheostomy on 04/05 Was on pressure support for most of the day on 04/06, now back on AC Is dyssynchronous with the ventilator at times Chest x-ray still with significant bilateral infiltrates Sedation weaning as per clinical trials data coordinator Earlier in the hospital course, the Recreation Supervisor contacted [facility] about ECMO-no beds available on 03/28. [facility] said that he is not a candidate for ECMO at their facility as age greater than 55 and was on high flow nasal cannula for greater than 3 days (2) Fever: Plan: started on 04/02, then resolved UA is clean on 04/02 CXR with persistent infiltrates blood cultures - no growth Sputum culture from 04/02 growing group G beta Streptococcus procalcitonin is < 1 Now with recurrent fevers on the night of 04/05-cultures and urine not repeated. Dopplers of lower extremities negative for DVT MRSA swab remains negative WBC count jumped way up to 23 today Discontinued Zosyn on 04/06 -Start cefepime and vancomycin on 04/06 for broad-spectrum coverage-could be pneumonia versus bacteremia versus Rogers catheter versus UTI versus VAP -Recommend repeat blood cultures and urine culture, defer to clinical trials data coordinator to order if deemed necessary -Follow CBC (3) Pneumonia due to COVID-19 virus: Plan: Symptom onset: approximately March 09, says he just got dyspnea and cough a few days prior to admission-became really short of breath on 03/20 so he came to the ED bilateral infiltrates on CXR, CRP 18 and then decreased after receiving Tocilizu mab and dexamethasone Continue dexamethasone as above-now day 10 overall but on high- 20mg IV daily dose Completed 5-day course of Rocephin/Zithromax too far along in course of illness to give Remdesivir, no benefit Received Tocilizumab on 03/21 CTA chest: no pulmonary embolism, just shows diffuse infiltrates initially CXR still with bilateral infiltrates Sputum culture with group C beta strep as above-on antibiotics still requiring mechanical ventilation, now status post tracheostomy (4) Pneumomediastinum: Plan: Now resolved (5) ROSARIO (acute kidney injury): Plan: - Baseline creatinine less than 1, acutely elevated to 1.61 on admission and now back to normal continue to monitor daily Making urine, Rogers catheter in place Lasix PRN to keep negative fluid balance (6) Bradycardia: Plan: with sinus terry initially while on BIPAP Now rates are normal to tachycardic-sinus But also had atrial fibrillation briefly on the night of 04/05 (7) Transaminitis: Plan: Persists, likely secondary to COVID-19 infection, but could be medication side effect (8) Hypokalemia: Plan: Resolved with potassium replacement (9) BPH loc w urin obs/LUTS: Plan: Rogers catheter back in place after intubation (10) Hypotension: Plan: BP can drop with sedation Levophed and phenylephrine PRN Plan: DVT prophylaxis: High-dose Lovenox, SCDs Disposition: Continued stay in ICU, very guarded prognosis CODE STATUS: Full code Admission and Anticipated Discharge Date Admission Date: March 20, 2021 Subjective Pt had an eventful night with hypotension, rapid atrial fibrillation, fever, and worsening hypoxia. He was given IV lopressor, phenylephrine, IV lasix. Today he continued to have fevers all day and was changed on abx coverage to Cefepime and Vanco. No repeat cultures drawn before changing abx but Dopplers of LEs done and were negative. He was on PS during the day and then placed back on AC this evening. Review of Systems Review of Systems: Unobtainable due to cognitive status and Unobtainable due to reduced consciousness Physical Exam Constitutional: WD/WN, vitals as above + ill appearing and + mechanically ventilated Neck: + tracheostomy present Results & Data Results & Data ([facility]) Vital Signs (Past 12 Hours) Vital Signs Temp Pulse Resp BP Pulse Ox Pulse Ox 04/06/21 18:06 122 H 172/74 H 04/06/21 17:41 38.4 C H 117 H 167/115 H 90 04/06/21 17:30 122 H 208/84 H 04/06/21 17:11 38.2 C H 120 H 193/103 H 91 04/06/21 17:02 24 04/06/21 16:49 93 H 27 H 93 04/06/21 16:41 38.1 C H 126 H 165/101 H 91 04/06/21 16:11 38.1 C H 92 H 106/63 92 04/06/21 15:41 38.0 C H 95 H 103/60 92 04/06/21 15:11 37.8 C H 100 H 129/81 92 04/06/21 14:41 37.8 C H 104 H 151/86 H 92 04/06/21 14:11 37.9 C H 102 H 146/89 H 92 04/06/21 13:41 38.0 C H 106 H 159/87 H 92 04/06/21 13:11 38.0 C H 112 H 168/95 H 92 04/06/21 12:41 38.1 C H 121 H 169/102 H 92 04/06/21 12:11 38.0 C H 115 H 164/101 H 92 04/06/21 11:36 125 H 27 H 92 04/06/21 11:11 38.0 C H 115 H 164/93 H 92 04/06/21 10:11 37.9 C H 109 H 25 H 122/83 90 04/06/21 10:00 92 04/06/21 09:11 37.8 C H 110 H 119/81 91 04/06/21 08:11 37.7 C H 110 H 141/70 H 90 04/06/21 07:25 111 H 24 90 04/06/21 07:14 116 H 04/06/21 07:11 37.7 C H 116 H 119/85 91 Laboratory Results 04/06/21 03:26 04/06/21 03:26 Diagnostic Findings CXR images personally reviewed by me and agree with the following reports: Chest X-Ray 04/06/21 02:47 XR chest 1V portable CLINICAL HISTORY: hypoxia COMPARISON STUDY: April 05, 2021 FINDINGS: No pneumothorax. No definite pleural effusion is seen however bilateral hemidiaphragms are partially silhouetting by surrounding opacities. Redemonstration of the mixed reticular and airspace opacities throughout bilateral lungs most prominent at the bases and associated with volume loss, overall unchanged since prior. Cardiac silhouette is stable and partially obscured by surrounding opacities. Pulmonary vasculature is obscured.. Osseous structures: unremarkable vertebral bodies are poorly seen. Interval removal of the endotracheal tube and placement of tracheostomy tube with its tip projecting to the tracheal air column. Interval removal of the gastric tube and placement of the enteric feeding tube, its distal aspect is not well seen due to underpenetration. Stable position of the right subclavian central venous catheter. IMPRESSION: 1. Stable opacities throughout bilateral lungs. 2. Interval removal of an the endotracheal tube and placement of tracheostomy tube. The rest of support apparatus as above. ACT 112: Negative or not required by law. The above report was generated using voice recognition software. It may contain grammatical, syntax or spelling errors. Electronically signed by: Smiley Eubanks DO 04/06/2021 9:33 AM Venous Doppler Study 04/06/21 09:50 BILATERAL LOWER EXTREMITY VENOUS DOPPLER HISTORY: Lower extremity swelling COVID and fever COMPARISON STUDY: None. FINDINGS: There is normal compressibility, flow, and augmentation within the bilateral lower extremity deep venous systems. Subcutaneous edema of the lower legs. IMPRESSION: No DVT within the right or left lower extremity. ACT 112: Negative or not required by law. Electronically signed by: Arpit Dutton M.D. 04/06/2021 11:51 AM Chest X-Ray 04/06/21 18:25 XR chest 1V portable CLINICAL HISTORY: increasing respiratory requirement COMPARISON STUDY: Chest radiograph performed earlier today. FINDINGS: Tip of feeding tube is below the lower aspect of this image but at least within the stomach. Right-sided central line is in place. There is a tracheostomy tube. No pneumothorax or pleural effusion is noted. Extensive bilateral airspace opacities are similar to prior exam. IMPRESSION: No significant change in extensive bilateral airspace opacities. ACT 112: Negative or not required by law. Electronically signed by: Floyd Neal M.D. 04/06/2021 6:37 PM PG Care Time/CCT Total # of Minutes Spent Total Time Spent with Patient: Total time spent is greater than 50% in coordination of care (as documented) at patient's floor/unit and/or counseling patient: Coding Level of Care Code 84038 Subseq Hosp Care Lvl 1 Diagnoses Acute respiratory failure with hypoxia J96.01 Fever R50.9 Pneumonia due to COVID-19 virus U07.1; J12.82 Pneumomediastinum J98.2 ROSARIO (acute kidney injury) N17.9 Bradycardia R00.1 Transaminitis R74.01 Hypokalemia E87.6 BPH loc w urin obs/LUTS N40.1 Hypotension I95.9
[2021-04-06] MEDS: SENNOSIDES 8.8 MG/5 ML UDC PO SCH (20:15)
--- NOTE | 2021-04-06 21:08 | Communication Note ---
Date of Service: April 06, [id number]: I reached out to the patient's , Halle ([phone]), by phone. She was provided an updated patient's change in status over the last 24 hours. We did discuss events overnight including brief conversion into A. fib as well as increasing FiO2 requirements. She did have multiple questions regarding current status including oxygen requirements as well as need for CT/MRI. I spent greater than 25 minutes on the phone with Halle discussing current status as well as concerns moving forward including need for neurological assessment given his unresponsive state today despite being off of sedation, increasing oxygenation, cardiovascular status, etc. She reports to me that she and her family had discussion and they are leaning towards upholding patient's initial wishes of no compressions that he had made prior to intubation. We did spend a great deal of time discussing this and the likelihood of poor outcome in the event of cardiac arrest. She was offered time to discuss this with all family members and to report back to us at her leisure if change in status was to be made. I did reiterate to her that there would essentially be no changes in the care that the patient is receiving whether he is no chest compressions or full code and that, ultimately, the decision would be for family whether they wished for Juancho to undergo chest compressions in the event of cardiac arrest. She understands this and states that she will reach out to the patient's son and report back to me. All questions were answered to the best of my ability. 2129: Halle did call back to the ICU and request to speak to me. She states that she had spoken with family members and requests that we change CODE STATUS back to Bill's original request of no chest compressions. She is comfortable with proceeding with current care including pressors, antirheumatics, etc. Order updated in chart. Nursing updated as well. I have personally spent 38 minutes of critical care time in the direct management of this patient. This is a life/limb threatening event. This includes time spent evaluating patient, direct bedside care, chart review, placing orders, interpretation of diagnostic studies, discussion with consultants, patient, and family members, as well as other required patient management activities. This time is exclusive of all separately billable procedures, and teaching time and separate from and in addition to any other critical care service time. Coding Level of Care Code Critical Care ea addt'l 30 min Time Spent (min) 38
[2021-04-07] MEDS: INSULIN ASPART 100 UNITS/ML 3 ML PEN SC SCH ×6 (01:05→20:46)
[2021-04-07] MEDS: ARTIFICIAL TEARS OP OINT 3.5 GM TUBE OP SCH ×6 (01:05→21:09)
[2021-04-07] MEDS: fentaNYL citrate 2,500 MCG/250 ML BAG IV SCH ×2 (01:27→17:44)
[2021-04-07] MEDS: DEXMEDETOMIDINE HCL 200 MCG in SODIUM CHLORIDE 0.9% 48 ML IV SCH ×7 (01:28→22:07)
[2021-04-07] MEDS: CEFEPIME 2,000 MG in SYRINGE 0 ML IV SCH (02:31)
[2021-04-07] MEDS: TUBE FEEDING WATER FLUSH GT SCH ×6 (02:31→21:18)
[2021-04-07] MEDS: propofoL 1,000 MG/100 ML VIAL IV SCH ×4 (04:30→10:55)
[2021-04-07 05:06] LABS: Basophils # (auto) 0.01 K/uL (0-0.2); Basophils % (auto) 0.1 %; Eosinophils # (auto) 0.01 K/uL (0-0.5); Eosinophils % (auto) 0.1 %; Hematocrit (blood only) 35.9 % (42-52); Hemoglobin 11.9 g/dL (14.0-18.0); Immature Granulocytes # (auto) 0.12 K/uL (0.00-0.02); Immature Granulocytes % (auto) 0.7 %; Lymphocytes % (auto) 3.1 %; Mean Corpuscular Hemoglobin 31.2 pg (25-34); Mean Corpuscular Hgb Conc 33.1 g/dL (32-36); Mean Platelet Volume 9.9 fL (7.4-10.4); Neutrophils # (auto) 14.31 K/uL (1.4-6.5); Platelet Count 197 K/uL (130-400); RDW Standard Deviation 51.3 fL (36.4-46.3); Red Blood Count 3.82 M/uL (4.7-6.1); White Blood Count 16.25 K/uL (4.8-10.8)
[2021-04-07 05:46] LABS: Albumin Level 1.9 gm/dl (3.4-5.0); BUN Creatinine Ratio 41.1 (10-20); Bilirubin Direct 0.2 mg/dl (0-0.2); Bilirubin,Total 0.4 mg/dl (0.2-1); Calcium 8.7 mg/dl (8.5-10.1); Creatinine Clr Calc Pharmacy 89.9 ml/min; Est GFR (African American) 82.3 ml/min; Magnesium 2.7 mg/dl (1.8-2.4); Potassium 3.8 mmol/L (3.5-5.1); Total Protein 6.1 gm/dl (6.4-8.2)
--- NOTE | 2021-04-07 07:32 | Critical Care Progress Note ---
Date of Service April 07, 2021 Assessment & Plan (1) Acute respiratory failure with hypoxia: Plan: Reason Critically Ill: 61-year-old male with past medical history of hypertension admitted to the hospital for COVID-19 pneumonia and acute hypoxic respiratory failure, intubated 03/27/2021 PLAN: NEURO: Neuromuscular blockade with cisatracurium -- stopped 03/31/21. Patient getting as needed vecuronium. CT Head 04/02/21: Negative for any acute abnormality. MRI 04/06/21: Acute paranasal sinusitis with large bilateral mastoid effusions. Otherwise largely unremarkable. Start Zyprexa for ICU associated delirium. RESPIRATORY: VDRF with acute hypoxic respiratory failure, secondary to multilobar COVID-19 pneumonia - COVID-19 PCR positive 03/16/2021 - CRP 18.2 --> 9.75 --> 1.63 - S/p Tocilizumab 03/21/2021 - Intubated 03/27/2021; tracheostomy performed 04/05/21 - Continue with lung protective ventilation - High PEEP, low tidal volume to keep Plateau < 30 with permissive hypercapnea if need be. - Current settings with rate 24, 520, rate 24, PEEP 12 - Monitor ABGs; next ABG ordered for noon ARDS net high-dose steroid protocol - Completed dexamethasone 20mg x5 days, 10mg x5 days (today, 04/06 is last day of dexamethasone 10mg) - Per medication hx review, patient is on prednisone 20mg po daily; on further review, it appears that the prednisone is scheduled 20mg po daily prn for gout flares but last documentation states no recent gout flares and external med refill history does not show recent fill of prednisone. Therefore, no need to taper at this point. Will watch for signs of adrenal insufficiency. Kate as well as [facility] team where contacted on 03/28/2021, unfortunately he is not a candidate from either side. - Tracheostomy performed 04/05/21 --Pneumomediastinum--> resolved No signs of pneumothorax on the chest x-ray CARDIOVASCULAR: Intermittent hypertension - Continue home amlodipine - Hydralazine 10mg IV q6h prn for SBP > 160 Intermittent hypotension: Resolved - likely sec to sedation - c/w vasopressor as needed to keep MAP>65 Atrial fibrillation with RVR, resolved Starting metoprolol 25mg po BID today, 04/07 Fluids/Renal: - Goal to remain net negative - Diuresis as needed - Additional 40 mg IV lasix provided today ID: Sinusitis - Already appropriately treated with Zosyn without significant benefit - Will transition patient to levaquin and flagyl - Remains febrile - Nasal MRSA screen negative - Leukocytosis had resolved but recurred 04/06 at 23.23 --> down to 16.25 - Sputum cultures with Group G Beta strep - BLE venous dopplers performed 04/06 and were negative Repeat COVID 04/07/21 remains POSITIVE GI/Nutrition: Transaminitis - Continue to follow c/w tube feeds, increase to 30 mL q4h Constipation, resolved -- no bowel movement since 03/26 - Successful bowel movement overnight 04/06-04/07 after receiving lactulose, mineral oil, Senna, and methylnaltrexone Heme: Continue to monitor Endocrine: ICU hyperglycemia protocol Will loosen novolog requirements --Prophylaxis VTE: Lovenox GI: Lansoprazole Lines: Left radial, right subclavian, positive Rogers Diet: continue tube feeds Patient's Mrs. Emperatriz Neri [phone] (2) Pneumonia due to COVID-19 virus: Admission and Anticipated Discharge Date Admission Date: March 20, 2021 Supervising Physician Co-Signing Physician Notes Dr. Merchant was resident physician during care of patient. I separately evaluated patient for ortiz portions of the history and the exam. I was present during the critical portion of medical decision making, and I discussed the case with the resident. I generally agree with the findings and plan. MRI was largely unremarkable with the exception of sinusitis and he is already on appropriate antibiotics. Would de-escalate to Unasyn. Patient still remains critically ill with ventilator dependent respiratory failure. Converting antibiotics to Levaquin and Flagyl as he is not shown clinical improvement yet at this time. Start Zyprexa for ICU associated delirium, starting metoprolol 25 mg twice daily I have personally spent 40 minutes of critical care time in the direct management of this patient. This is a life/limb threatening event. This includes time spent evaluating patient, direct bedside care, chart review, placing orders, interpretation of diagnostic studies, discussion with consultants, patient, and/or family members regarding treatment decisions, as well as other required patient management activities. This time is exclusive of all separately billable procedures, and teaching time and separate from and in addition to any other critical care service time. Subjective No acute events overnight. Patient did have propofol at 30. PABLITO did discuss case with patient's last night and they have changed code status back to no chest compressions in the event of cardiac arrest. Otherwise will continue current management. Patient remains sedated, unresponsive, and on trach. Physical Exam Physical Exam: Please see attending attestation. Results & Data Results & Data ([facility]) Vital Signs (Past 12 Hours) Vital Signs Temp Pulse Resp BP Pulse Ox 04/07/21 05:40 26 H 04/07/21 04:48 37.7 C H 98 H 174/91 H 96 04/07/21 04:18 37.8 C H 90 139/69 93 04/07/21 03:48 37.9 C H 93 H 137/68 93 04/07/21 03:32 100 H 28 H 91 04/07/21 03:18 37.9 C H 103 H 133/71 93 04/07/21 02:48 37.9 C H 106 H 146/75 H 93 04/07/21 02:18 38.1 C H 111 H 185/99 H 95 04/07/21 01:30 118 H 32 H 93 04/07/21 01:29 125 H 74 L 04/06/21 23:11 38.0 C H 109 H 160/95 H 89 L 04/06/21 22:11 38.0 C H 103 H 146/83 H 89 L 04/06/21 21:11 38.1 C H 98 H 142/68 H 89 L 04/06/21 20:11 38.3 C H 106 H 151/86 H 87 L 04/06/21 20:00 138/61 04/06/21 19:35 113 H 24 89 L Laboratory Results 04/07/21 04/07/21 04/07/21 Range/Units 10:47 10:47 07:27 WBC (4.8-10.8) K/uL RBC (4.7-6.1) M/uL Hgb (14.0-18.0) g/dL POC Hgb (14.0-18.0) g/dl Hct (42-52) % POC Hct (42-52) % MCV (80-100) fL MCH (25-34) pg MCHC (32-36) g/dL RDW Std Deviation (36.4-46.3) fL RDW Coeff of Sujit (11.5-14.5) % Plt Count (130-400) K/uL MPV (7.4-10.4) fL Immature Gran % (Auto) % Neut % (Auto) % Lymph % (Auto) % [place] % (Auto) % Eos % (Auto) % Baso % (Auto) % Neut # (Auto) (1.4-6.5) K/uL Lymph # (Auto) (1.2-3.4) K/uL [place] # (Auto) (0.11-0.59) K/uL Eos # (Auto) (0-0.5) K/uL Baso # (Auto) (0-0.2) K/uL Immature Gran # (Auto) (0.00-0.02) K/uL Sample Site POC pH (7.35-7.45) POC pCO2 (35-46) mmHg POC pO2 (80-95) mmHg POC HCO3 (19-24) iraida/L POC Total CO2 (24-31) mmol/L POC Base Excess (-9-1.8) iraida/L ABG pH (Temp Correct) (7.35-7.45) ABG pCO2 (Temp Corrct (35-46) mmHg POC ABG pO2 at Pt Temp POC ABG O2 Sat (90-95) % Sher Test O2 Delivery Device POC O2 Rate POC FiO2 % Tidal Volume PEEP POC Sodium (135-144) mmol/L Sodium (136-145) mmol/L POC Potassium (3.3-5.0) mmol/L Potassium (3.5-5.1) mmol/L Chloride (98-107) mmol/L Carbon Dioxide (21-32) mmol/L Anion Gap (3-11) BUN (7-18) mg/dl Creatinine (0.6-1.4) mg/dl Est Cr Clr Drug Dosing ml/min Est GFR ( Amer) ml/min Est GFR (Non-Af Amer) ml/min BUN/Creatinine Ratio (10-20) Glucose (70-99) mg/dl POC Glucose 139 H (70-99) mg/dl Calcium (8.5-10.1) mg/dl Phosphorus (2.5-4.9) mg/dl Magnesium (1.8-2.4) mg/dl Total Bilirubin (0.2-1) mg/dl Direct Bilirubin (0-0.2) mg/dl AST (15-37) U/L ALT (12-78) U/L Alkaline Phosphatase (45-117) U/L Total Protein (6.4-8.2) gm/dl Albumin (3.4-5.0) gm/dl Procalcitonin (0-0.5) ng/ml Nasal Screen MRSA (PCR) (Negative) Adenovirus (PCR) Pending B. pertussis DNA (PCR) Pending B.parapertussis DNA PCR Pending C. pneumoniae DNA (PCR) Pending Coronavirus OC43 (PCR) Pending Coronavirus HKU1 (PCR) Pending Coronavirus 229E (PCR) Pending COVID-19 Eval Order RESPNP at [facility] SARS-CoV-2 (PCR) Pending Coronavirus NL63 (PCR) Pending Human Metapneumovir PCR Pending Influenza Type B (PCR) Pending M. pneumoniae (PCR) Pending Parainfluenza 1 (PCR) Pending Parainfluenza 2 (PCR) Pending Parainfluenza 3 (PCR) Pending Parainfluenza 4 (PCR) Pending RSV (PCR) Pending Entero/Rhino (PCR) Pending 04/07/21 04/07/21 04/07/21 Range/Units 05:32 04:37 04:37 WBC (4.8-10.8) K/uL RBC (4.7-6.1) M/uL Hgb (14.0-18.0) g/dL POC Hgb 11.2 L (14.0-18.0) g/dl Hct (42-52) % POC Hct 33 L (42-52) % MCV (80-100) fL MCH (25-34) pg MCHC (32-36) g/dL RDW Std Deviation (36.4-46.3) fL RDW Coeff of Sujit (11.5-14.5) % Plt Count (130-400) K/uL MPV (7.4-10.4) fL Immature Gran % (Auto) % Neut % (Auto) % Lymph % (Auto) % [place] % (Auto) % Eos % (Auto) % Baso % (Auto) % Neut # (Auto) (1.4-6.5) K/uL Lymph # (Auto) (1.2-3.4) K/uL [place] # (Auto) (0.11-0.59) K/uL Eos # (Auto) (0-0.5) K/uL Baso # (Auto) (0-0.2) K/uL Immature Gran # (Auto) (0.00-0.02) K/uL Sample Site Art Line POC pH 7.32 L (7.35-7.45) POC pCO2 53 H (35-46) mmHg POC pO2 84 (80-95) mmHg POC HCO3 28 H (19-24) iraida/L POC Total CO2 29 (24-31) mmol/L POC Base Excess 2.0 H (-9-1.8) iraida/L ABG pH (Temp Correct) 7.311 L (7.35-7.45) ABG pCO2 (Temp Corrct 55 H (35-46) mmHg POC ABG pO2 at Pt Temp 88 POC ABG O2 Sat 95.0 (90-95) % Sher Test NA O2 Delivery Device Ventilator POC O2 Rate 24 POC FiO2 70 % Tidal Volume 520 PEEP 10 POC Sodium 145 H (135-144) mmol/L Sodium 146 H (136-145) mmol/L POC Potassium 3.7 (3.3-5.0) mmol/L Potassium 3.8 (3.5-5.1) mmol/L Chloride 114 H (98-107) mmol/L Carbon Dioxide 26 (21-32) mmol/L Anion Gap 6.0 (3-11) BUN 46 H (7-18) mg/dl Creatinine 1.12 (0.6-1.4) mg/dl Est Cr Clr Drug Dosing 89.9 ml/min Est GFR ( Amer) 82.3 ml/min Est GFR (Non-Af Amer) 71.0 ml/min BUN/Creatinine Ratio 41.1 H (10-20) Glucose 147 H (70-99) mg/dl POC Glucose (70-99) mg/dl Calcium 8.7 (8.5-10.1) mg/dl Phosphorus 5.0 H (2.5-4.9) mg/dl Magnesium 2.7 H (1.8-2.4) mg/dl Total Bilirubin 0.4 D (0.2-1) mg/dl Direct Bilirubin 0.2 D (0-0.2) mg/dl AST 22 (15-37) U/L ALT 79 H (12-78) U/L Alkaline Phosphatase 173 H (45-117) U/L Total Protein 6.1 L (6.4-8.2) gm/dl Albumin 1.9 L (3.4-5.0) gm/dl Procalcitonin 1.70 H (0-0.5) ng/ml Nasal Screen MRSA (PCR) (Negative) Adenovirus (PCR) B. pertussis DNA (PCR) B.parapertussis DNA PCR C. pneumoniae DNA (PCR) Coronavirus OC43 (PCR) Coronavirus HKU1 (PCR) Coronavirus 229E (PCR) COVID-19 Eval Order SARS-CoV-2 (PCR) Coronavirus NL63 (PCR) Human Metapneumovir PCR Influenza Type B (PCR) M. pneumoniae (PCR) Parainfluenza 1 (PCR) Parainfluenza 2 (PCR) Parainfluenza 3 (PCR) Parainfluenza 4 (PCR) RSV (PCR) Entero/Rhino (PCR) 04/07/21 04/07/21 04/06/21 Range/Units 04:37 04:21 19:52 WBC 16.25 H (4.8-10.8) K/uL RBC 3.82 L (4.7-6.1) M/uL Hgb 11.9 L (14.0-18.0) g/dL POC Hgb (14.0-18.0) g/dl Hct 35.9 L (42-52) % POC Hct (42-52) % MCV 94.0 (80-100) fL MCH 31.2 (25-34) pg MCHC 33.1 (32-36) g/dL RDW Std Deviation 51.3 H (36.4-46.3) fL RDW Coeff of Sujit 15.0 H (11.5-14.5) % Plt Count 197 (130-400) K/uL MPV 9.9 (7.4-10.4) fL Immature Gran % (Auto) 0.7 % Neut % (Auto) 88.0 % Lymph % (Auto) 3.1 % [place] % (Auto) 8.0 % Eos % (Auto) 0.1 % Baso % (Auto) 0.1 % Neut # (Auto) 14.31 H (1.4-6.5) K/uL Lymph # (Auto) 0.50 L (1.2-3.4) K/uL [place] # (Auto) 1.30 H (0.11-0.59) K/uL Eos # (Auto) 0.01 (0-0.5) K/uL Baso # (Auto) 0.01 (0-0.2) K/uL Immature Gran # (Auto) 0.12 H (0.00-0.02) K/uL Sample Site POC pH (7.35-7.45) POC pCO2 (35-46) mmHg POC pO2 (80-95) mmHg POC HCO3 (19-24) iraida/L POC Total CO2 (24-31) mmol/L POC Base Excess (-9-1.8) iraida/L ABG pH (Temp Correct) (7.35-7.45) ABG pCO2 (Temp Corrct (35-46) mmHg POC ABG pO2 at Pt Temp POC ABG O2 Sat (90-95) % Sher Test O2 Delivery Device POC O2 Rate POC FiO2 % Tidal Volume PEEP POC Sodium (135-144) mmol/L Sodium (136-145) mmol/L POC Potassium (3.3-5.0) mmol/L Potassium (3.5-5.1) mmol/L Chloride (98-107) mmol/L Carbon Dioxide (21-32) mmol/L Anion Gap (3-11) BUN (7-18) mg/dl Creatinine (0.6-1.4) mg/dl Est Cr Clr Drug Dosing ml/min Est GFR ( Amer) ml/min Est GFR (Non-Af Amer) ml/min BUN/Creatinine Ratio (10-20) Glucose (70-99) mg/dl POC Glucose 139 H 146 H (70-99) mg/dl Calcium (8.5-10.1) mg/dl Phosphorus (2.5-4.9) mg/dl Magnesium (1.8-2.4) mg/dl Total Bilirubin (0.2-1) mg/dl Direct Bilirubin (0-0.2) mg/dl AST (15-37) U/L ALT (12-78) U/L Alkaline Phosphatase (45-117) U/L Total Protein (6.4-8.2) gm/dl Albumin (3.4-5.0) gm/dl Procalcitonin (0-0.5) ng/ml Nasal Screen MRSA (PCR) (Negative) Adenovirus (PCR) B. pertussis DNA (PCR) B.parapertussis DNA PCR C. pneumoniae DNA (PCR) Coronavirus OC43 (PCR) Coronavirus HKU1 (PCR) Coronavirus 229E (PCR) COVID-19 Eval Order SARS-CoV-2 (PCR) Coronavirus NL63 (PCR) Human Metapneumovir PCR Influenza Type B (PCR) M. pneumoniae (PCR) Parainfluenza 1 (PCR) Parainfluenza 2 (PCR) Parainfluenza 3 (PCR) Parainfluenza 4 (PCR) RSV (PCR) Entero/Rhino (PCR) 04/06/21 04/06/21 04/06/21 Range/Units 15:49 11:47 11:15 WBC (4.8-10.8) K/uL RBC (4.7-6.1) M/uL Hgb (14.0-18.0) g/dL POC Hgb 12.2 L (14.0-18.0) g/dl Hct (42-52) % POC Hct 36 L (42-52) % MCV (80-100) fL MCH (25-34) pg MCHC (32-36) g/dL RDW Std Deviation (36.4-46.3) fL RDW Coeff of Sujit (11.5-14.5) % Plt Count (130-400) K/uL MPV (7.4-10.4) fL Immature Gran % (Auto) % Neut % (Auto) % Lymph % (Auto) % [place] % (Auto) % Eos % (Auto) % Baso % (Auto) % Neut # (Auto) (1.4-6.5) K/uL Lymph # (Auto) (1.2-3.4) K/uL [place] # (Auto) (0.11-0.59) K/uL Eos # (Auto) (0-0.5) K/uL Baso # (Auto) (0-0.2) K/uL Immature Gran # (Auto) (0.00-0.02) K/uL Sample Site Art Line POC pH 7.40 (7.35-7.45) POC pCO2 44 (35-46) mmHg POC pO2 76 L (80-95) mmHg POC HCO3 28 H (19-24) iraida/L POC Total CO2 29 (24-31) mmol/L POC Base Excess 3.0 H (-9-1.8) iraida/L ABG pH (Temp Correct) 7.386 (7.35-7.45) ABG pCO2 (Temp Corrct 46 (35-46) mmHg POC ABG pO2 at Pt Temp 82 POC ABG O2 Sat 95.0 (90-95) % Sher Test NA O2 Delivery Device Ventilator POC O2 Rate POC FiO2 60 % Tidal Volume PEEP 12 POC Sodium 141 (135-144) mmol/L Sodium (136-145) mmol/L POC Potassium 3.9 (3.3-5.0) mmol/L Potassium (3.5-5.1) mmol/L Chloride (98-107) mmol/L Carbon Dioxide (21-32) mmol/L Anion Gap (3-11) BUN (7-18) mg/dl Creatinine (0.6-1.4) mg/dl Est Cr Clr Drug Dosing ml/min Est GFR ( Amer) ml/min Est GFR (Non-Af Amer) ml/min BUN/Creatinine Ratio (10-20) Glucose (70-99) mg/dl POC Glucose 182 H (70-99) mg/dl Calcium (8.5-10.1) mg/dl Phosphorus (2.5-4.9) mg/dl Magnesium (1.8-2.4) mg/dl Total Bilirubin (0.2-1) mg/dl Direct Bilirubin (0-0.2) mg/dl AST (15-37) U/L ALT (12-78) U/L Alkaline Phosphatase (45-117) U/L Total Protein (6.4-8.2) gm/dl Albumin (3.4-5.0) gm/dl Procalcitonin (0-0.5) ng/ml Nasal Screen MRSA (PCR) Negative (Negative) Adenovirus (PCR) B. pertussis DNA (PCR) B.parapertussis DNA PCR C. pneumoniae DNA (PCR) Coronavirus OC43 (PCR) Coronavirus HKU1 (PCR) Coronavirus 229E (PCR) COVID-19 Eval Order SARS-CoV-2 (PCR) Coronavirus NL63 (PCR) Human Metapneumovir PCR Influenza Type B (PCR) M. pneumoniae (PCR) Parainfluenza 1 (PCR) Parainfluenza 2 (PCR) Parainfluenza 3 (PCR) Parainfluenza 4 (PCR) RSV (PCR) Entero/Rhino (PCR) Resident Activity Tracking Resident Involvement: Resident Care Provided Care Provided: Adult Hospital Medicine
--- NOTE | 2021-04-07 07:41 | Billing Data ---
Date of Service April 07, 2021 Coding Level of Care Code Critical Care 08 29- mins
[2021-04-07] MEDS: SENNOSIDES 8.8 MG/5 ML UDC PO SCH ×2 (08:05→21:08)
[2021-04-07] MEDS: ENOXAPARIN INJ 40 MG/0.4 ML SYR SQ SCH ×2 (08:18→21:09)
[2021-04-07] MEDS: GABAPENTIN 250 MG/5 ML 470 ML BTL PO SCH ×3 (08:19→21:10)
[2021-04-07] MEDS: LANSOPRAZOLE 30 MG SOLTAB OG SCH ×2 (08:19→21:07)
[2021-04-07] MEDS: hydrALAZINE HCL 20 MG/ML VIAL IV PRN (08:22)
--- NOTE | 2021-04-07 08:49 | Magnetic Resonance Report ---
Brain MRI WITHOUT CONTRAST HISTORY: COVID, HTN, decreased mental status/unresponsive TECHNIQUE: Multiplanar multisequence MRI of the brain was performed without the use of contrast. COMPARISON STUDY: Head CT 04/02/2021. FINDINGS: There are no areas of restricted diffusion to suggest acute infarction. The midline structu res are intact. Fluid levels within the near complete opacification of the left maxillary sinus and p artial opacification of the right maxillary sinus. There are large bilateral mastoid effusions. There is near complete opacification the right sphenoid sinus. The orbits are unremarkable. The ventricles and sulci are within normal limits for age. There is no mass, hematoma, midline shift. The major vas cular flow-voids at the skull base are well maintained. A few scattered punctate foci of T2 hyperinte nsity consistent with age-related microvascular ischemic change. IMPRESSION: 1. No acute infarct. 2. No acute intracranial hemorrhage. 3. Acute paranasal sinusitis with large bilateral mastoid effusions. This could be due to the patient 's recent history of prior intubation. ACT 112: Negative or not required by law. Electronically signed by: Marco A Yee M.D. 04/07/2021 8:47 AM
[2021-04-07] MEDS ORDERED: predniSONE 5 MG TAB PO SCH (09:00)
--- NOTE | 2021-04-07 09:45 | XRay Report ---
XR chest 1V portable HISTORY: Respiratory distress. Follow-up. COMPARISON: Chest 04/06/2021. FINDINGS: Lines and tubes remain unchanged in position. No pneumothorax. No pleural effusions. Patchy bilateral airspace opacities are again noted. These are similar to the prior study. The heart remain s top normal in size. IMPRESSION: 1. Satisfactory support line placement. 2. No significant change in the bilateral airspace opacities consistent with a multifocal pneumonia. ACT 112: Negative or not required by law. Electronically signed by: Marco A Yee M.D. 04/07/2021 9:44 AM
[2021-04-07] MEDS ORDERED: METOPROLOL TARTRATE 25 MG TAB PO SCH (10:00)
[2021-04-07] MEDS ORDERED: FUROSEMIDE 40 MG in SYRINGE 0 ML IV ONE (10:00)
[2021-04-07 10:10] LABS: iSTAT Art Bld Gas pCO2 Correct 55 mmHg (35-46); iSTAT Art Bld Gas pH Corrected 7.311 (7.35-7.45); iSTAT Arterial Blood Gas HCO3 28 meg/L (19-24); iSTAT Arterial Blood Gas pCO2 53 mmHg (35-46); iSTAT Arterial Blood Gas pH 7.32 (7.35-7.45); iSTAT Arterial Blood Gas pO2 84 mmHg (80-95); iSTAT Arterial Blood Gas pO2 C 88; iSTAT Carbon Dioxide 29 mmol/L (24-31); iSTAT FiO2 70 %; iSTAT Hematocrit 33 % (42-52); iSTAT Hemoglobin 11.2 g/dl (14.0-18.0); iSTAT Potassium 3.7 mmol/L (3.3-5.0); iSTAT Site Art Line; iSTAT Sodium 145 mmol/L (135-144)
[2021-04-07] MEDS: metroNIDAZOLE 500 MG/100 ML BAG IV SCH ×2 (11:19→17:44)
[2021-04-07] MEDS: levoFLOXacin/D5W 750 MG/150 ML BAG IV SCH (11:19)
[2021-04-07 11:44] LABS: Adenovirus PCR Not Detected (NotDetected); Bordetella parapertussis PCR Not Detected (NotDetected); Bordetella pertussis PCR Not Detected (NotDetected); Chlamydia pneumoniae PCR Not Detected (NotDetected); Coronavirus 229E PCR Not Detected (NotDetected); Coronavirus HKU1 PCR Not Detected (NotDetected); Coronavirus NL63 PCR Not Detected (NotDetected); Coronavirus OC43PCR Not Detected (NotDetected); Human Metapneumovirus PCR Not Detected (NotDetected); Influenza A PCR Not Detected (NotDetected); Influenza B PCR Not Detected (NotDetected); Mycoplasma pneumoniae PCR Not Detected (NotDetected); Parainfluenza Virus 1 PCR Not Detected (NotDetected); Parainfluenza Virus 2 PCR Not Detected (NotDetected); Parainfluenza Virus 3 PCR Not Detected (NotDetected); Parainfluenza Virus 4 PCR Not Detected (NotDetected); Respiratory Syncytial VirusPCR Not Detected (NotDetected); Rhinovirus/Enterovirus PCR Not Detected (NotDetected)
[2021-04-07 11:57] LABS: Coronavirus CoV-2 (COVID19)PCR DETECTED (NotDetected)
[2021-04-07] MEDS: OLANZapine 5 MG TABLET PO SCH (13:11)
[2021-04-07] MEDS: ACETAMINOPHEN 500 MG TAB PO PRN (14:34)
--- NOTE | 2021-04-07 18:26 | Hospitalist Progress Note ---
Date of Service April 07, 2021 Assessment & Plan (1) Acute respiratory failure with hypoxia: Plan: due to COVID 19 pneumonia, bilateral infiltrates on CXR Was requiring prone positioning and BiPAP while awake, but then weaned down to wall high flow nasal cannula at 11-15 L on 03/23 However, on 03/24 worsened again was placed back on Vapotherm high flow nasal cannula On 03/25, requiring higher amounts of oxygen at 40 L and up to 80 % FiO2 to maintain pulse ox 90-91% On 03/26 switched to Ventilator HFNC at 60L, 100% FiO2 to keep POx>88%---> continued to decompensate on the morning of 03/27 and was intubated and proned Pneumomediastinum is now resolved on x-ray Status post tocilizumab on 03/21 CRP trended downward Completed a course of high-dose dexamethasone initially with 10 mg daily and then on 03/28, increased to 20 mg daily x5 days, then 10 mg daily x5 days IV Lasix almost daily to keep in a negative fluid balance Ventilator management as per heater mechanic Has failed multiple SBTs Now status post tracheostomy on 04/05 Was on pressure support for most of the day on 04/06, now back on AC Is dyssynchronous with the ventilator at times Chest x-ray still with significant bilateral infiltrates Sedation weaning as per heater mechanic, now on Zyprexa Earlier in the hospital course, the Credentialing Analyst contacted [facility] about ECMO-no beds available on 03/28. Kate said that he is not a candidate for ECMO at their facility as age greater than 55 and was on high flow nasal cannula for greater than 3 days (2) Fever: Plan: started on 04/02, then resolved UA is clean on 04/02 CXR with persistent infiltrates blood cultures - no growth Sputum culture from 04/02 growing group G beta Streptococcus procalcitonin is < 1 Now with recurrent fevers on the night of 04/05-blood cultures and urine not yet repeated. Dopplers of lower extremities negative for DVT MRI brain with sinusitis and mastoid effusions MRSA swab remains negative WBC count jumped up to 23 and now down to 16 Discontinued Zosyn on 04/06 -Started cefepime and vancomycin on 04/06 for broad-spectrum coverage-could be pneumonia versus bacteremia versus Rogers catheter versus UTI versus VAP -changed to Levaquin and Flagyl on 04/07 -Recommend repeat blood cultures and urine culture, defer to heater mechanic to order if deemed necessary -Follow CBC (3) Pneumonia due to COVID-19 virus: Plan: Symptom onset: approximately March 09, says he just got dyspnea and cough a few days prior to admission-became really short of breath on 03/20 so he came to the ED bilateral infiltrates on CXR, CRP 18 and then decreased after receiving Tocilizumab and dexamethasone Completed course of dexamethasone Completed 5-day course of Rocephin/Zithromax too far along in course of illness to give Remdesivir, no benefit Received Tocilizumab on 03/21 CTA chest: no pulmonary embolism, just shows diffuse infiltrates initially CXR still with bilateral infiltrates Sputum culture with group C beta strep as above-on antibiotics still requiring mechanical ventilation, now status post tracheostomy (4) Pneumomediastinum: Plan: Now resolved (5) ROSARIO (acute kidney injury): Plan: - Baseline creatinine less than 1, acutely elevated to 1.61 on admission and now back to normal continue to monitor daily Making urine, Rogers catheter in place Lasix PRN to keep negative fluid balance (6) Bradycardia: Plan: with sinus terry initially while on BIPAP Since that time, was in sinus tachycardia But also had atrial fibrillation briefly on the night of 04/05 On 04/07 had a couple 4-second pauses after starting p.o. metoprolol Discontinue metoprolol (7) Transaminitis: Plan: Persists, likely secondary to COVID-19 infection, but could be medication side effect Improving (8) Hypokalemia: Plan: Resolved with potassium replacement (9) BPH loc w urin obs/LUTS: Plan: Rogers catheter back in place after intubation (10) Hypotension: Plan: Has intermittently required vasopressors but now is hypertensive (11) Elevated troponin: Plan: Troponin elevated at 0.13 Could be myocardial demand ischemia given ongoing sepsis, although ECG with ST depression and T wave inversions in lateral leads which is not changed from 3 days prior Doubt acute coronary syndrome Plan: DVT prophylaxis: High-dose Lovenox, SCDs Disposition: Continued stay in ICU, very guarded prognosis CODE STATUS: Changed to conditional code with no compressions Admission and Anticipated Discharge Date Admission Date: March 20, 2021 Subjective Pt remains sedated and intubated. Continues to be febrile all day long. Had brain MRI which was neg for stroke but did show sinusitis and large mastoid effusions bilat. Was changed to Levaquin and Flagyl for abx Was started on metoprolol today and then had some 4 second pauses on tele, remains in sinus to sinus tach rhythm. Review of Systems Review of Systems: Unobtainable due to cognitive status and Unobtainable due to reduced consciousness Physical Exam Constitutional: WD/WN, vitals as above + ill appearing and + mechanically ventilated Neck: + tracheostomy present Results & Data Results & Data ([facility]) Vital Signs (Past 12 Hours) Vital Signs Temp Pulse Resp BP Pulse Ox Pulse Ox 04/07/21 18:07 38.6 C H 127 H 144/85 H 91 04/07/21 17:37 38.6 C H 80 173/81 H 91 04/07/21 17:07 38.6 C H 123 H 163/81 H 91 04/07/21 16:36 38.7 C H 123 H 160/79 H 88 L 04/07/21 16:06 38.8 C H 113 H 157/78 H 90 04/07/21 16:00 69 135/64 04/07/21 15:37 38.9 C H 69 135/64 90 04/07/21 15:10 93 H 29 H 93 04/07/21 15:07 38.9 C H 103 H 155/76 H 91 04/07/21 14:36 38.9 C H 108 H 153/70 H 93 04/07/21 14:07 38.7 C H 91 H 143/73 H 93 04/07/21 13:37 38.6 C H 70 154/88 H 92 04/07/21 13:06 38.4 C H 121 H 157/91 H 93 04/07/21 12:37 38.3 C H 88 159/91 H 92 04/07/21 12:06 38.3 C H 121 H 145/84 H 89 L 04/07/21 12:00 120 H 154/74 H 04/07/21 11:37 38.3 C H 133 H 126/77 89 L 04/07/21 11:06 38.3 C H 99 H 149/73 H 91 04/07/21 10:37 38.2 C H 52 L 148/65 H 91 04/07/21 10:30 120 H 30 H 90 04/07/21 10:07 38.1 C H 93 H 138/67 89 L 04/07/21 10:00 92 04/07/21 09:37 38.0 C H 102 H 148/79 H 90 04/07/21 09:07 37.9 C H 95 H 154/96 H 90 04/07/21 08:30 38.0 C H 88 92 04/07/21 08:00 38.0 C H 100 H 170/63 H 92 04/07/21 07:30 37.9 C H 92 H 91 04/07/21 07:20 98 H 28 H 92 04/07/21 07:18 37.9 C H 84 91 04/07/21 06:48 37.8 C H 85 194/99 H 93 Laboratory Results 04/07/21 04/07/21 04/07/21 Range/Units 17:56 14:32 11:59 WBC (4.8-10.8) K/uL RBC (4.7-6.1) M/uL Hgb (14.0-18.0) g/dL POC Hgb (14.0-18.0) g/dl Hct (42-52) % POC Hct (42-52) % MCV (80-100) fL MCH (25-34) pg MCHC (32-36) g/dL RDW Std Deviation (36.4-46.3) fL RDW Coeff of Sujit (11.5-14.5) % Plt Count (130-400) K/uL MPV (7.4-10.4) fL Immature Gran % (Auto) % Neut % (Auto) % Lymph % (Auto) % Payne % (Auto) % Eos % (Auto) % Baso % (Auto) % Neut # (Auto) (1.4-6.5) K/uL Lymph # (Auto) (1.2-3.4) K/uL Payne # (Auto) (0.11-0.59) K/uL Eos # (Auto) (0-0.5) K/uL Baso # (Auto) (0-0.2) K/uL Immature Gran # (Auto) (0.00-0.02) K/uL Sample Site POC pH (7.35-7.45) POC pCO2 (35-46) mmHg POC pO2 (80-95) mmHg POC HCO3 (19-24) iraida/L POC Total CO2 (24-31) mmol/L POC Base Excess (-9-1.8) iraida/L ABG pH (Temp Correct) (7.35-7.45) ABG pCO2 (Temp Corrct (35-46) mmHg POC ABG pO2 at Pt Temp POC ABG O2 Sat (90-95) % Sher Test O2 Delivery Device POC O2 Rate POC FiO2 % Tidal Volume PEEP POC Sodium (135-144) mmol/L Sodium (136-145) mmol/L POC Potassium (3.3-5.0) mmol/L Potassium (3.5-5.1) mmol/L Chloride (98-107) mmol/L Carbon Dioxide (21-32) mmol/L Anion Gap (3-11) BUN (7-18) mg/dl Creatinine (0.6-1.4) mg/dl Est Cr Clr Drug Dosing ml/min Est GFR ( Amer) ml/min Est GFR (Non-Af Amer) ml/min BUN/Creatinine Ratio (10-20) Glucose (70-99) mg/dl POC Glucose 156 H 181 H (70-99) mg/dl Calcium (8.5-10.1) mg/dl Phosphorus (2.5-4.9) mg/dl Magnesium (1.8-2.4) mg/dl Total Bilirubin (0.2-1) mg/dl Direct Bilirubin (0-0.2) mg/dl AST (15-37) U/L ALT (12-78) U/L Alkaline Phosphatase (45-117) U/L Troponin I 0.139 H* (0-0.045) ng/ml Total Protein (6.4-8.2) gm/dl Albumin (3.4-5.0) gm/dl Procalcitonin (0-0.5) ng/ml Adenovirus (PCR) (NotDetected) B. pertussis DNA (PCR) (NotDetected) B.parapertussis DNA PCR (NotDetected) C. pneumoniae DNA (PCR) (NotDetected) Coronavirus OC43 (PCR) (NotDetected) Coronavirus HKU1 (PCR) (NotDetected) Coronavirus 229E (PCR) (NotDetected) COVID-19 Eval Order SARS-CoV-2 (PCR) (NotDetected) Coronavirus NL63 (PCR) (NotDetected) Human Metapneumovir PCR (NotDetected) Influenza Type A (PCR) (NotDetected) Influenza Type B (PCR) (NotDetected) M. pneumoniae (PCR) (NotDetected) Parainfluenza 1 (PCR) (NotDetected) Parainfluenza 2 (PCR) (NotDetected) Parainfluenza 3 (PCR) (NotDetected) Parainfluenza 4 (PCR) (NotDetected) RSV (PCR) (NotDetected) Entero/Rhino (PCR) (NotDetected) 04/07/21 04/07/21 04/07/21 Range/Units 10:47 10:47 07:27 WBC (4.8-10.8) K/uL RBC (4.7-6.1) M/uL Hgb (14.0-18.0) g/dL POC Hgb (14.0-18.0) g/dl Hct (42-52) % POC Hct (42-52) % MCV (80-100) fL MCH (25-34) pg MCHC (32-36) g/dL RDW Std Deviation (36.4-46.3) fL RDW Coeff of Sujit (11.5-14.5) % Plt Count (130-400) K/uL MPV (7.4-10.4) fL Immature Gran % (Auto) % Neut % (Auto) % Lymph % (Auto) % Payne % (Auto) % Eos % (Auto) % Baso % (Auto) % Neut # (Auto) (1.4-6.5) K/uL Lymph # (Auto) (1.2-3.4) K/uL Payne # (Auto) (0.11-0.59) K/uL Eos # (Auto) (0-0.5) K/uL Baso # (Auto) (0-0.2) K/uL Immature Gran # (Auto) (0.00-0.02) K/uL Sample Site POC pH (7.35-7.45) POC pCO2 (35-46) mmHg POC pO2 (80-95) mmHg POC HCO3 (19-24) iraida/L POC Total CO2 (24-31) mmol/L POC Base Excess (-9-1.8) iraida/L ABG pH (Temp Correct) (7.35-7.45) ABG pCO2 (Temp Corrct (35-46) mmHg POC ABG pO2 at Pt Temp POC ABG O2 Sat (90-95) % Sher Test O2 Delivery Device POC O2 Rate POC FiO2 % Tidal Volume PEEP POC Sodium (135-144) mmol/L Sodium (136-145) mmol/L POC Potassium (3.3-5.0) mmol/L Potassium (3.5-5.1) mmol/L Chloride (98-107) mmol/L Carbon Dioxide (21-32) mmol/L Anion Gap (3-11) BUN (7-18) mg/dl Creatinine (0.6-1.4) mg/dl Est Cr Clr Drug Dosing ml/min Est GFR ( Amer) ml/min Est GFR (Non-Af Amer) ml/min BUN/Creatinine Ratio (10-20) Glucose (70-99) mg/dl POC Glucose 139 H (70-99) mg/dl Calcium (8.5-10.1) mg/dl Phosphorus (2.5-4.9) mg/dl Magnesium (1.8-2.4) mg/dl Total Bilirubin (0.2-1) mg/dl Direct Bilirubin (0-0.2) mg/dl AST (15-37) U/L ALT (12-78) U/L Alkaline Phosphatase (45-117) U/L Troponin I (0-0.045) ng/ml Total Protein (6.4-8.2) gm/dl Albumin (3.4-5.0) gm/dl Procalcitonin (0-0.5) ng/ml Adenovirus (PCR) Not Detected (NotDetected) B. pertussis DNA (PCR) Not Detected (NotDetected) B.parapertussis DNA PCR Not Detected (NotDetected) C. pneumoniae DNA (PCR) Not Detected (NotDetected) Coronavirus OC43 (PCR) Not Detected (NotDetected) Coronavirus HKU1 (PCR) Not Detected (NotDetected) Coronavirus 229E (PCR) Not Detected (NotDetected) COVID-19 Eval Order RESPNP at [facility] SARS-CoV-2 (PCR) DETECTED A* (NotDetected) Coronavirus NL63 (PCR) Not Detected (NotDetected) Human Metapneumovir PCR Not Detected (NotDetected) Influenza Type A (PCR) Not Detected (NotDetected) Influenza Type B (PCR) Not Detected (NotDetected) M. pneumoniae (PCR) Not Detected (NotDetected) Parainfluenza 1 (PCR) Not Detected (NotDetected) Parainfluenza 2 (PCR) Not Detected (NotDetected) Parainfluenza 3 (PCR) Not Detected (NotDetected) Parainfluenza 4 (PCR) Not Detected (NotDetected) RSV (PCR) Not Detected (NotDetected) Entero/Rhino (PCR) Not Detected (NotDetected) 04/07/21 04/07/21 04/07/21 Range/Units 05:32 04:37 04:37 WBC (4.8-10.8) K/uL RBC (4.7-6.1) M/uL Hgb (14.0-18.0) g/dL POC Hgb 11.2 L (14.0-18.0) g/dl Hct (42-52) % POC Hct 33 L (42-52) % MCV (80-100) fL MCH (25-34) pg MCHC (32-36) g/dL RDW Std Deviation (36.4-46.3) fL RDW Coeff of Sujit (11.5-14.5) % Plt Count (130-400) K/uL MPV (7.4-10.4) fL Immature Gran % (Auto) % Neut % (Auto) % Lymph % (Auto) % Payne % (Auto) % Eos % (Auto) % Baso % (Auto) % Neut # (Auto) (1.4-6.5) K/uL Lymph # (Auto) (1.2-3.4) K/uL Payne # (Auto) (0.11-0.59) K/uL Eos # (Auto) (0-0.5) K/uL Baso # (Auto) (0-0.2) K/uL Immature Gran # (Auto) (0.00-0.02) K/uL Sample Site Art Line POC pH 7.32 L (7.35-7.45) POC pCO2 53 H (35-46) mmHg POC pO2 84 (80-95) mmHg POC HCO3 28 H (19-24) iraida/L POC Total CO2 29 (24-31) mmol/L POC Base Excess 2.0 H (-9-1.8) iraida/L ABG pH (Temp Correct) 7.311 L (7.35-7.45) ABG pCO2 (Temp Corrct 55 H (35-46) mmHg POC ABG pO2 at Pt Temp 88 POC ABG O2 Sat 95.0 (90-95) % Sher Test NA O2 Delivery Device Ventilator POC O2 Rate 24 POC FiO2 70 % Tidal Volume 520 PEEP 10 POC Sodium 145 H (135-144) mmol/L Sodium 146 H (136-145) mmol/L POC Potassium 3.7 (3.3-5.0) mmol/L Potassium 3.8 (3.5-5.1) mmol/L Chloride 114 H (98-107) mmol/L Carbon Dioxide 26 (21-32) mmol/L Anion Gap 6.0 (3-11) BUN 46 H (7-18) mg/dl Creatinine 1.12 (0.6-1.4) mg/dl Est Cr Clr Drug Dosing 89.9 ml/min Est GFR ( Amer) 82.3 ml/min Est GFR (Non-Af Amer) 71.0 ml/min BUN/Creatinine Ratio 41.1 H (10-20) Glucose 147 H (70-99) mg/dl POC Glucose (70-99) mg/dl Calcium 8.7 (8.5-10.1) mg/dl Phosphorus 5.0 H (2.5-4.9) mg/dl Magnesium 2.7 H (1.8-2.4) mg/dl Total Bilirubin 0.4 D (0.2-1) mg/dl Direct Bilirubin 0.2 D (0-0.2) mg/dl AST 22 (15-37) U/L ALT 79 H (12-78) U/L Alkaline Phosphatase 173 H (45-117) U/L Troponin I (0-0.045) ng/ml Total Protein 6.1 L (6.4-8.2) gm/dl Albumin 1.9 L (3.4-5.0) gm/dl Procalcitonin 1.70 H (0-0.5) ng/ml Adenovirus (PCR) (NotDetected) B. pertussis DNA (PCR) (NotDetected) B.parapertussis DNA PCR (NotDetected) C. pneumoniae DNA (PCR) (NotDetected) Coronavirus OC43 (PCR) (NotDetected) Coronavirus HKU1 (PCR) (NotDetected) Coronavirus 229E (PCR) (NotDetected) COVID-19 Eval Order SARS-CoV-2 (PCR) (NotDetected) Coronavirus NL63 (PCR) (NotDetected) Human Metapneumovir PCR (NotDetected) Influenza Type A (PCR) (NotDetected) Influenza Type B (PCR) (NotDetected) M. pneumoniae (PCR) (NotDetected) Parainfluenza 1 (PCR) (NotDetected) Parainfluenza 2 (PCR) (NotDetected) Parainfluenza 3 (PCR) (NotDetected) Parainfluenza 4 (PCR) (NotDetected) RSV (PCR) (NotDetected) Entero/Rhino (PCR) (NotDetected) 04/07/21 04/07/21 04/06/21 Range/Units 04:37 04:21 19:52 WBC 16.25 H (4.8-10.8) K/uL RBC 3.82 L (4.7-6.1) M/uL Hgb 11.9 L (14.0-18.0) g/dL POC Hgb (14.0-18.0) g/dl Hct 35.9 L (42-52) % POC Hct (42-52) % MCV 94.0 (80-100) fL MCH 31.2 (25-34) pg MCHC 33.1 (32-36) g/dL RDW Std Deviation 51.3 H (36.4-46.3) fL RDW Coeff of Sujit 15.0 H (11.5-14.5) % Plt Count 197 (130-400) K/uL MPV 9.9 (7.4-10.4) fL Immature Gran % (Auto) 0.7 % Neut % (Auto) 88.0 % Lymph % (Auto) 3.1 % Payne % (Auto) 8.0 % Eos % (Auto) 0.1 % Baso % (Auto) 0.1 % Neut # (Auto) 14.31 H (1.4-6.5) K/uL Lymph # (Auto) 0.50 L (1.2-3.4) K/uL Payne # (Auto) 1.30 H (0.11-0.59) K/uL Eos # (Auto) 0.01 (0-0.5) K/uL Baso # (Auto) 0.01 (0-0.2) K/uL Immature Gran # (Auto) 0.12 H (0.00-0.02) K/uL Sample Site POC pH (7.35-7.45) POC pCO2 (35-46) mmHg POC pO2 (80-95) mmHg POC HCO3 (19-24) iraida/L POC Total CO2 (24-31) mmol/L POC Base Excess (-9-1.8) iraida/L ABG pH (Temp Correct) (7.35-7.45) ABG pCO2 (Temp Corrct (35-46) mmHg POC ABG pO2 at Pt Temp POC ABG O2 Sat (90-95) % Sher Test O2 Delivery Device POC O2 Rate POC FiO2 % Tidal Volume PEEP POC Sodium (135-144) mmol/L Sodium (136-145) mmol/L POC Potassium (3.3-5.0) mmol/L Potassium (3.5-5.1) mmol/L Chloride (98-107) mmol/L Carbon Dioxide (21-32) mmol/L Anion Gap (3-11) BUN (7-18) mg/dl Creatinine (0.6-1.4) mg/dl Est Cr Clr Drug Dosing ml/min Est GFR ( Amer) ml/min Est GFR (Non-Af Amer) ml/min BUN/Creatinine Ratio (10-20) Glucose (70-99) mg/dl POC Glucose 139 H 146 H (70-99) mg/dl Calcium (8.5-10.1) mg/dl Phosphorus (2.5-4.9) mg/dl Magnesium (1.8-2.4) mg/dl Total Bilirubin (0.2-1) mg/dl Direct Bilirubin (0-0.2) mg/dl AST (15-37) U/L ALT (12-78) U/L Alkaline Phosphatase (45-117) U/L Troponin I (0-0.045) ng/ml Total Protein (6.4-8.2) gm/dl Albumin (3.4-5.0) gm/dl Procalcitonin (0-0.5) ng/ml Adenovirus (PCR) (NotDetected) B. pertussis DNA (PCR) (NotDetected) B.parapertussis DNA PCR (NotDetected) C. pneumoniae DNA (PCR) (NotDetected) Coronavirus OC43 (PCR) (NotDetected) Coronavirus HKU1 (PCR) (NotDetected) Coronavirus 229E (PCR) (NotDetected) COVID-19 Eval Order SARS-CoV-2 (PCR) (NotDetected) Coronavirus NL63 (PCR) (NotDetected) Human Metapneumovir PCR (NotDetected) Influenza Type A (PCR) (NotDetected) Influenza Type B (PCR) (NotDetected) M. pneumoniae (PCR) (NotDetected) Parainfluenza 1 (PCR) (NotDetected) Parainfluenza 2 (PCR) (NotDetected) Parainfluenza 3 (PCR) (NotDetected) Parainfluenza 4 (PCR) (NotDetected) RSV (PCR) (NotDetected) Entero/Rhino (PCR) (NotDetected) PG Care Time/CCT Total # of Minutes Spent Total Time Spent with Patient: Total time spent is greater than 50% in coordination of care (as documented) at patient's floor/unit and/or counseling patient: Coding Level of Care Code 20809 Subseq Hosp Care Lvl 1 Diagnoses Acute respiratory failure with hypoxia J96.01 Fever R50.9 Pneumonia due to COVID-19 virus U07.1; J12.82 Pneumomediastinum J98.2 ROSARIO (acute kidney injury) N17.9 Bradycardia R00.1 Transaminitis R74.01 Hypokalemia E87.6 BPH loc w urin obs/LUTS N40.1 Hypotension I95.9 Elevated troponin R77.8
--- NOTE | 2021-04-07 19:06 | Electrocardiogram Report ---
Test Reason : Blood Pressure : / mmHG Vent. Rate : 124 BPM Atrial Rate : 124 BPM P-R Int : 164 ms QRS Dur : 098 ms QT Int : 316 ms P-R-T Axes : 039 -02 166 degrees QTc Int : 453 ms Sinus tachycardia Abnormal ECG When compared with ECG of 04-APR-2021 11:07, No significant change was found Confirmed by Anatoliy Connor ([id number]) on 04/07/2021 7:06:14 PM Referred By: REFERRED SELF Confirmed By:Yunier Connor
[2021-04-07] MEDS ORDERED: ADENOSINE IV SOLN 3 MG/ML 2 ML VIAL IV ONE ×2 (19:42→19:52)
[2021-04-07] MEDS ORDERED: STAT IV Infusion **Titration per Protocol STA ×2 (19:44→20:46)
[2021-04-07] MEDS: ESMOLOL / NSS 2,500 MG/250 ML BAG IV SCH (20:00)
[2021-04-07] MEDS ORDERED: AMIODARONE 150MG / 100ML D5W IV ONE ×3 (20:00→20:43)
[2021-04-07] MEDS: PHENYLEPHRINE HCL 20 MG in DEXTROSE 5% 500 ML IV SCH ×3 (20:10→21:17)
[2021-04-07] MEDS ORDERED: 0.2 MICRON FILTER SET 1 EA IV ONE ×3 (20:42→20:46)
[2021-04-07] MEDS ORDERED: AMIODARONE / D5W 150 MG/100 ML BAG IV STA ×3 (20:42→20:46)
[2021-04-07] MEDS ORDERED: ADENOSINE IV SOLN 3 MG/ML 2 ML VIAL IV STA ×3 (20:44→20:45)
[2021-04-07] MEDS ORDERED: AMIODARONE IV BOLUS & DRIP IV STA (20:46)
--- NOTE | 2021-04-07 20:47 | Communication Note ---
Date of Service: April 07, 2021 Patient was noted to convert into a narrow complex supraventricular tachycardia with heart rates into the 200s. I did immediately present to bedside. Verbal orders were provided to nursing staff to drawl up adenosine and 3 doses and have the code cart outside of the room. I am from a with this patient and last evening, I did have extensive conversation with the patient's . He is to be NO COMPRESSIONS in the event of cardiac arrest. They are fine with any other ACLS interventions including cardioversion. I did place orders for esmolol drip as the patient did initially have preserved blood pressures on initial assessment. Upon entering the room, nurse to provide initial dose of 6 mg IV adenosine. The patient did pause, however he converted immediately back to a supraventricular tachycardia with rates in the 180s to 190s. Second dose of adenosine was given with similar response. At this point, we are able to apply pacer pads. A third dose of adenosine was given without response. At this point, the patient became hypotensive with systolic blood pressures in the 60s. Orders for cardioversion provided to nursing staff. Patient initially received synchronized cardioversion at 100 J. He was without significant response at that point. Esmolol bolus and drip were started. This did steadily improve the patient's heart rate into the 170s to 180s. Attempt at second cardioversion at 150 J was provided without significant response. Third attempt at 150 J as well. Minimal response at that point. Verbal orders for amiodarone bolus and drip provided to nursing staff. Patient did become hypotensive. Verbal orders for restarting the patient's Pako-Synephrine drip was provided to nursing staff as well. Patient remained with heart rates in the 160s to 180s. After the adenosine and initial few cardioversions, does appear as though the patient has converted into A. fib with RVR. Patient had previously been in A. fib 2 nights ago. He had responded to beta-dar during that initial episode. He had received beta- dar earlier today, however it was withheld this evening secondary to sinus pause episodes. Patient had received a fourth round of synchronized cardioversion at 200 J with instability of blood pressure heart rate. Second bolus of 150 mg of amiodarone bolus was provided as well. Patient did show some improvement in heart rate into the 1 teens to 130s. Inconsistently, however, the patient would increase his heart rate into the 150s to 160s. During these episodes, the patient would drop his blood pressure into the 60s. After a second bolus of 50 mg of esmolol and titration of the drip up to 100 mcg, we did provide a 5th round of synchronized cardioversion at 200 J. Patient's heart rate remained consistently at that point in the 1 teens to 130s. Blood pressure has appeared to stabilize with titration up of the Pako-Synephrine to 0.7 mics. Patient will be continued on the esmolol and amiodarone drips as well as Pako- Synephrine. He has sedation on board. It should be noted that the patient did receive push dose of fentanyl at my direction for nursing staff to provide for sedation given the cardioversion. Blood gas was obtained by respiratory with numbers of 7.302/55.8/119. Patient was on 100% FiO2 at this time. Orders for stat labs placed. I did discuss the case with my attending physician. He recommends third 150 mg bolus of amiodarone. He agrees with contacting the patient's family to assess him at bedside given his significant change in clinical status and current instability. 2047: Called , Halle. She was understandably upset with the events. She was offered to come to the facility to sit outside the room and be with her as I'm concerned with the patient's instability and concern for ongoing decline throughout the night. This is deemed an extenuating circumstance given the patient's rapid clinical decline in the setting of ongoing, profound, COVID- 19 pneumonia with ongoing hypoxia and need for tracheostomy tube with addition of hemodynamic instability with symptomatic SVT followed by Moris jin. I do feel that at this point, this does warrant designation of extenuating circumstance and I certainly feel it is appropriate for family to be able to come to the institution to be with the patient at this time. I did discuss this with clinical supervisory civil engineer as well as clinical coordinator. Family was encouraged to enter through the emergency department entrance to undergo screening and to be escorted back to the room. They acknowledge their understanding and are thankful. Will have ongoing discussion when they arrived at bedside. and 2 sons present at bedside. Understandably upset. I did have a lengthy conversation with the family discussing earlier events as well as interventions. This is the first that they have been able to see their /father since admission. Spent a large amount of time discussing clinical course at this point as well as interventions and needs currently. Orders placed to start patient on heparin gtt (no bolus). I have personally spent 80 minutes of critical care time in the direct management of this patient. This is a life/limb threatening event. This includes time spent evaluating patient, direct bedside care, chart review, placing orders, interpretation of diagnostic studies, discussion with consultants, patient, and family members, as well as other required patient management activities. This time is exclusive of all separately billable procedures, and teaching time and separate from and in addition to any other critical care service time. Coding Level of Care Code Critical Care 1st 30-74 mins Time Spent (min) 80
[2021-04-07 20:51] LABS: iSTAT Art Bld Gas pCO2 Correct 56 mmHg (35-46); iSTAT Art Bld Gas pH Corrected 7.302 (7.35-7.45); iSTAT Arterial Blood Gas HCO3 27 meg/L (19-24); iSTAT Arterial Blood Gas pCO2 51 mmHg (35-46); iSTAT Arterial Blood Gas pH 7.33 (7.35-7.45); iSTAT Arterial Blood Gas pO2 107 mmHg (80-95); iSTAT Arterial Blood Gas pO2 C 119; iSTAT Carbon Dioxide 29 mmol/L (24-31); iSTAT FiO2 100 %; iSTAT Hematocrit 32 % (42-52); iSTAT Hemoglobin 10.9 g/dl (14.0-18.0); iSTAT Potassium 3.5 mmol/L (3.3-5.0); iSTAT Site Art Line; iSTAT Sodium 145 mmol/L (135-144)
[2021-04-07] MEDS ORDERED: AMIODARONE / D5W 360 MG/200 ML BAG IV ONE (20:56)
[2021-04-07 21:10] LABS: BUN Creatinine Ratio 45.6 (10-20); Creatinine Clr Calc Pharmacy 80.4 ml/min; Est GFR (African American) 71.4 ml/min; Est GFR (Non-African American) 61.6 ml/min; Magnesium 2.6 mg/dl (1.8-2.4); Potassium 3.7 mmol/L (3.5-5.1)
[2021-04-07 21:12] LABS: Troponin I 0.128 ng/ml (0-0.045)
[2021-04-07 21:16] LABS: Phosphorus 3.9 mg/dl (2.5-4.9)
[2021-04-07] MEDS ORDERED: VECURONIUM BROMIDE 10 MG VIAL IV ONE (21:30)
[2021-04-07] MEDS ORDERED: Heparin IV Adult Wt-Based Standard *NO* Bolus Protocol IV ONE (22:05)
[2021-04-07] MEDS ORDERED: HEPARIN SODIUM/DEXTROSE 25,000 UNITS/500 ML BAG IV SCH (22:30)
[2021-04-07 23:26] LABS: Partial Thromboplastin Time 27.6 Seconds (21.0-31.0)
[2021-04-07] MEDS: SODIUM CHLORIDE 0.9% 1000ML 1,000 ML IV SCH (23:49)
[2021-04-08] MEDS: propofoL 1,000 MG/100 ML VIAL IV SCH ×3 (00:01→14:06)
[2021-04-08] MEDS: POTASSIUM CHLORIDE / WTR 10 MEQ/100 ML PLCT IV SCH ×4 (00:02→04:51)
[2021-04-08] MEDS: ESMOLOL / NSS 2,500 MG/250 ML BAG IV SCH ×4 (00:03→14:01)
[2021-04-08] MEDS: ARTIFICIAL TEARS OP OINT 3.5 GM TUBE OP SCH ×6 (00:04→20:50)
[2021-04-08] MEDS: PHENYLEPHRINE HCL 20 MG in DEXTROSE 5% 500 ML IV SCH ×3 (00:04→14:06)
[2021-04-08] MEDS: INSULIN ASPART 100 UNITS/ML 3 ML PEN SC SCH ×7 (00:44→23:33)
[2021-04-08] MEDS: DEXMEDETOMIDINE HCL 200 MCG in SODIUM CHLORIDE 0.9% 48 ML IV SCH ×2 (01:17→14:07)
[2021-04-08] MEDS: metroNIDAZOLE 500 MG/100 ML BAG IV SCH ×3 (01:58→18:09)
[2021-04-08] MEDS: TUBE FEEDING WATER FLUSH GT SCH ×5 (01:59→18:09)
[2021-04-08] MEDS: AMIODARONE / D5W 360 MG/200 ML BAG IV SCH ×2 (02:38→13:26)
[2021-04-08 03:47] LABS: iSTAT Art Bld Gas pCO2 Correct 46 mmHg (35-46); iSTAT Art Bld Gas pH Corrected 7.369 (7.35-7.45); iSTAT Arterial Blood Gas HCO3 26 meg/L (19-24); iSTAT Arterial Blood Gas pCO2 42 mmHg (35-46); iSTAT Arterial Blood Gas pO2 70 mmHg (80-95); iSTAT Arterial Blood Gas pO2 C 81; iSTAT Carbon Dioxide 27 mmol/L (24-31); iSTAT FiO2 60 %; iSTAT Hematocrit 30 % (42-52); iSTAT Hemoglobin 10.2 g/dl (14.0-18.0); iSTAT Potassium 3.8 mmol/L (3.3-5.0); iSTAT Site Art Line; iSTAT Sodium 145 mmol/L (135-144)
[2021-04-08] MEDS: ACETAMINOPHEN 500 MG TAB PO PRN ×2 (04:13→20:55)
[2021-04-08 05:38] LABS: Basophils # (auto) 0.01 K/uL (0-0.2); Basophils % (auto) 0.1 %; Eosinophils # (auto) 0.02 K/uL (0-0.5); Eosinophils % (auto) 0.1 %; Hematocrit (blood only) 32.9 % (42-52); Hemoglobin 10.6 g/dL (14.0-18.0); Immature Granulocytes # (auto) 0.07 K/uL (0.00-0.02); Immature Granulocytes % (auto) 0.5 %; Lymphocytes # (auto) 0.56 K/uL (1.2-3.4); Lymphocytes % (auto) 4.1 %; Mean Corpuscular Hemoglobin 30.1 pg (25-34); Mean Corpuscular Hgb Conc 32.2 g/dL (32-36); Mean Corpuscular Volume 93.5 fL (80-100); Mean Platelet Volume 9.9 fL (7.4-10.4); Monocytes # (auto) 0.73 K/uL (0.11-0.59); Monocytes % (auto) 5.3 %; Neutrophils # (auto) 12.38 K/uL (1.4-6.5); Neutrophils % (auto) 89.9 %; Platelet Count 200 K/uL (130-400); RDW Coefficient of Variation 15.1 % (11.5-14.5); RDW Standard Deviation 51.3 fL (36.4-46.3); Red Blood Count 3.52 M/uL (4.7-6.1); White Blood Count 13.77 K/uL (4.8-10.8)
[2021-04-08 06:05] LABS: Albumin Level 1.5 gm/dl (3.4-5.0); BUN Creatinine Ratio 47.7 (10-20); Bilirubin Direct 0.2 mg/dl (0-0.2); Calcium 8.7 mg/dl (8.5-10.1); Creatinine Clr Calc Pharmacy 84.9 ml/min; Est GFR (African American) 77.3 ml/min; Est GFR (Non-African American) 66.7 ml/min; Magnesium 2.8 mg/dl (1.8-2.4)
[2021-04-08 06:30] LABS: Bilirubin,Total 0.4 mg/dl (0.2-1); Phosphorus 2.4 mg/dl (2.5-4.9); Total Protein 5.6 gm/dl (6.4-8.2)
--- NOTE | 2021-04-08 06:58 | Critical Care Progress Note ---
Date of Service April 08, 2021 Assessment & Plan (1) Acute respiratory failure with hypoxia: Plan: Reason Critically Ill: 61-year-old male with past medical history of hypertension admitted to the hospital for COVID-19 pneumonia and acute hypoxic respiratory failure, intubated 03/27/2021 PLAN: NEURO: Neuromuscular blockade with cisatracurium -- stopped 03/31/21. Patient getting as needed vecuronium. CT Head 04/02/21: Negative for any acute abnormality. MRI 04/06/21: Acute paranasal sinusitis with large bilateral mastoid effusions. Otherwise largely unremarkable. Zyprexa for ICU associated delirium. RESPIRATORY: VDRF with acute hypoxic respiratory failure, secondary to multilobar COVID-19 pneumonia - COVID-19 PCR positive 03/16/2021 - CRP 18.2 --> 9.75 --> 1.63 - S/p Tocilizumab 03/21/2021 - Intubated 03/27/2021; tracheostomy performed 04/05/21 - Continue with lung protective ventilation - High PEEP, low tidal volume to keep Plateau < 30 with permissive hypercapnea if need be. ARDS net high-dose steroid protocol - Completed dexamethasone 20mg x5 days, 10mg x5 days -- completed on 04/06 - Per medication hx review, patient is on prednisone 20mg po daily; on further review, it appears that the prednisone is scheduled 20mg po daily prn for gout flares but last documentation states no recent gout flares and external med refill history does not show recent fill of prednisone. Therefore, no need to taper at this point. Will watch for signs of adrenal insufficiency. Kate as well as [facility] team where contacted on 03/28/2021, unfortunately he is not a candidate from either side. - Tracheostomy performed 04/05/21 - Failed CPAP trial this morning. Returned to vent settings with AC --Pneumomediastinum--> resolved No signs of pneumothorax on the chest x-ray CARDIOVASCULAR: Intermittent hypertension - Continue home amlodipine - Hydralazine 10mg IV q6h prn for SBP > 160 Intermittent hypotension: Resolved - likely sec to sedation - c/w vasopressor as needed to keep MAP>65 Atrial fibrillation with RVR, resolved Starting metoprolol 25mg po BID today, 04/07 Episode of SVT evening of 04/07 - Required adenosine x3 (6, 12, 12), cardioverted 5x, amiodarone drip, esmolol bolus then with drip, and Pako-synephrine - Patient has returned to NSR - Discontinue esmolol drip, Pako-synephrine, and propofol - Attempt to wean fentanyl (currently at 175) - Restart metoprolol tartrate 25mg po BID for a-fib rate control - Transition from Heparin to lovenox 120mg SQ BID Fluids/Renal: - Goal to remain net negative - Diuresis as needed - Additional 40 mg IV lasix to be provided today after albumin infusion is completed ID: Sinusitis - Already appropriately treated with Zosyn without significant benefit - Transitioned to levaquin and flagyl -- continue - Remains febrile - Nasal MRSA screen negative - Leukocytosis had resolved but recurred 04/06 at 23.23 --> slowly downtrending and is 13.77 today - Sputum cultures with Group G Beta strep - BLE venous dopplers performed 04/06 and were negative Repeat COVID 04/07/21 remains POSITIVE Repeat blood cultures today. Patient remains febrile. Leukocytosis at 13.77. GI/Nutrition: Transaminitis - Continue to follow c/w tube feeds. Nutrition consulted. Appreciate their assistance - Currently, goal for peptamen is 70; can increase by 10 q8h until goal Constipation, resolved -- no bowel movement since 03/26 - Successful bowel movement overnight 04/06-04/07 after receiving lactulose, mineral oil, Senna, and methylnaltrexone Albumin 25%, 50mg ordered; then diurese with 40mg IV lasix Heme: Continue to monitor Endocrine: ICU hyperglycemia protocol Will loosen novolog requirements --Prophylaxis VTE: Lovenox GI: Lansoprazole Lines: Left radial, right subclavian, positive Rogers Diet: continue tube feeds Patient's Mrs. Emperatriz Neri [phone] (2) Pneumonia due to COVID-19 virus: Admission and Anticipated Discharge Date Admission Date: March 20, 2021 Supervising Physician Co-Signing Physician Notes Dr. Merchant was resident physician during care of patient. I separately evaluated patient for ortiz portions of the history and the exam. I was present during the critical portion of medical decision making, and I discussed the case with the resident. I generally agree with the findings and plan. Starting metoprolol 25 mg twice daily for atrial fibrillation for rate control he is currently normal sinus rhythm on the monitor. He is systemically an ticoagulated with heparin we will convert that to Lovenox BID daily dosing for decreased fluid administration. Discontinue propofol today no indication for heavy sedation, still continuing fentanyl Versed. Tolerating tube feeds last bowel movement was yesterday Line holiday place peripheral IVs no indication for central venous access we will repeat blood cultures today Patient remains critically ill I have personally spent 45 minutes of critical care time in the direct management of this patient. This is a life/limb threatening event. This includes time spent evaluating patient, direct bedside care, chart review, placing orders, interpretation of diagnostic studies, discussion with consultants, patient, and/or family members regarding treatment decisions, as well as other required patient management activities. This time is exclusive of all separately billable procedures, and teaching time and separate from and in addition to any other critical care service time. Subjective Patient had, unfortunately, an eventful night last night (please see communication note for full details of event). In summary, patient went into SVT requiring intervention including adenosine x3, cardioversion x5, amio drip (now on taper), esmolol bolus (now on esmolol drip), and Pako-Synephrine drip. His family was notified of the critical status and they were able to present to the unit to see him through the window to discuss care and concerns. Patient has since returned to sinus rhythm and appears more comfortable. He remains on the ventilator via trach. Review of Systems Review of Systems: Unobtainable due to reduced consciousness (sedated ) Physical Exam Physical Exam: See attending attestation Results & Data Results & Data ([facility]) Vital Signs (Past 12 Hours) Vital Signs Temp Pulse Resp BP Pulse Ox 04/08/21 05:35 38.6 C H 71 113/63 93 04/08/21 05:05 38.8 C H 74 119/66 93 04/08/21 04:35 38.9 C H 79 130/71 93 04/08/21 04:05 39.0 C H 76 147/74 H 93 04/08/21 04:00 76 115/53 L 04/08/21 03:35 39.1 C H 72 156/91 H 94 04/08/21 03:30 29 H 04/08/21 03:05 39.1 C H 73 144/76 H 94 04/08/21 02:35 39.1 C H 81 147/77 H 92 04/08/21 02:05 39.0 C H 78 142/78 H 93 04/08/21 01:35 39.0 C H 77 140/78 93 04/08/21 01:05 38.8 C H 80 138/72 92 04/08/21 00:35 38.7 C H 75 141/67 H 92 04/08/21 00:05 38.6 C H 90 153/82 H 93 04/07/21 23:35 38.7 C H 77 132/68 93 04/07/21 23:05 38.7 C H 84 131/69 93 04/07/21 23:00 79 04/07/21 22:53 88 26 H 93 04/07/21 22:35 38.7 C H 85 141/77 H 95 04/07/21 22:05 38.8 C H 89 131/75 96 04/07/21 21:35 38.8 C H 93 H 131/73 96 04/07/21 21:05 39.0 C H 88 140/82 94 04/07/21 20:43 215 H 27 H 04/07/21 20:30 38.9 C H 143 H 103/68 96 04/07/21 20:00 38.7 C H 166 H 80/51 L 93 04/07/21 19:37 38.7 C H 97 H 157/76 H 88 L 04/07/21 19:07 38.6 C H 108 H 163/83 H 91 Laboratory Results 04/08/21 04/08/21 04/08/21 Range/Units 08:40 07:22 05:10 WBC (4.8-10.8) K/uL RBC (4.7-6.1) M/uL Hgb (14.0-18.0) g/dL POC Hgb (14.0-18.0) g/dl Hct (42-52) % POC Hct (42-52) % MCV (80-100) fL MCH (25-34) pg MCHC (32-36) g/dL RDW Std Deviation (36.4-46.3) fL RDW Coeff of Sujit (11.5-14.5) % Plt Count (130-400) K/uL MPV (7.4-10.4) fL Immature Gran % (Auto) % Neut % (Auto) % Lymph % (Auto) % [place] % (Auto) % Eos % (Auto) % Baso % (Auto) % Neut # (Auto) (1.4-6.5) K/uL Lymph # (Auto) (1.2-3.4) K/uL [place] # (Auto) (0.11-0.59) K/uL Eos # (Auto) (0-0.5) K/uL Baso # (Auto) (0-0.2) K/uL Immature Gran # (Auto) (0.00-0.02) K/uL APTT 34.3 H (21.0-31.0) Seconds PTT Ratio 1.3 Sample Site POC pH (7.35-7.45) POC pCO2 (35-46) mmHg POC pO2 (80-95) mmHg POC HCO3 (19-24) iraida/L POC Total CO2 (24-31) mmol/L POC Base Excess (-9-1.8) iraida/L ABG pH (Temp Correct) (7.35-7.45) ABG pCO2 (Temp Corrct (35-46) mmHg POC ABG pO2 at Pt Temp POC ABG O2 Sat (90-95) % Sher Test O2 Delivery Device POC O2 Rate POC FiO2 % Tidal Volume PEEP POC Sodium (135-144) mmol/L Sodium 144 (136-145) mmol/L POC Potassium (3.3-5.0) mmol/L Potassium 4.0 (3.5-5.1) mmol/L Chloride 115 H (98-107) mmol/L Carbon Dioxide 27 (21-32) mmol/L Anion Gap 2.0 L (3-11) BUN 56 H (7-18) mg/dl Creatinine 1.18 (0.6-1.4) mg/dl Est Cr Clr Drug Dosing 84.9 ml/min Est GFR ( Amer) 77.3 ml/min Est GFR (Non-Af Amer) 66.7 ml/min BUN/Creatinine Ratio 47.7 H (10-20) Glucose 149 H (70-99) mg/dl POC Glucose 161 H (70-99) mg/dl POC Glucose (other) (70-99) mg/dl Calcium 8.7 (8.5-10.1) mg/dl Ionized Calcium (1.12-1.32) mmol/L Phosphorus 2.4 L D (2.5-4.9) mg/dl Magnesium 2.8 H (1.8-2.4) mg/dl Total Bilirubin 0.4 (0.2-1) mg/dl Direct Bilirubin 0.2 (0-0.2) mg/dl AST 21 (15-37) U/L ALT 57 (12-78) U/L Alkaline Phosphatase 136 H (45-117) U/L Troponin I (0-0.045) ng/ml Total Protein 5.6 L (6.4-8.2) gm/dl Albumin 1.5 L (3.4-5.0) gm/dl Adenovirus (PCR) (NotDetected) B. pertussis DNA (PCR) (NotDetected) B.parapertussis DNA PCR (NotDetected) C. pneumoniae DNA (PCR) (NotDetected) Coronavirus OC43 (PCR) (NotDetected) Coronavirus HKU1 (PCR) (NotDetected) Coronavirus 229E (PCR) (NotDetected) COVID-19 Eval Order SARS-CoV-2 (PCR) (NotDetected) Coronavirus NL63 (PCR) (NotDetected) Human Metapneumovir PCR (NotDetected) Influenza Type A (PCR) (NotDetected) Influenza Type B (PCR) (NotDetected) M. pneumoniae (PCR) (NotDetected) Parainfluenza 1 (PCR) (NotDetected) Parainfluenza 2 (PCR) (NotDetected) Parainfluenza 3 (PCR) (NotDetected) Parainfluenza 4 (PCR) (NotDetected) RSV (PCR) (NotDetected) Entero/Rhino (PCR) (NotDetected) 04/08/21 04/08/21 04/08/21 Range/Units 05:10 04:28 03:32 WBC 13.77 H (4.8-10.8) K/uL RBC 3.52 L (4.7-6.1) M/uL Hgb 10.6 L (14.0-18.0) g/dL POC Hgb 10.2 L (14.0-18.0) g/dl Hct 32.9 L (42-52) % POC Hct 30 L (42-52) % MCV 93.5 (80-100) fL MCH 30.1 (25-34) pg MCHC 32.2 (32-36) g/dL RDW Std Deviation 51.3 H (36.4-46.3) fL RDW Coeff of Sujit 15.1 H (11.5-14.5) % Plt Count 200 (130-400) K/uL MPV 9.9 (7.4-10.4) fL Immature Gran % (Auto) 0.5 % Neut % (Auto) 89.9 % Lymph % (Auto) 4.1 % [place] % (Auto) 5.3 % Eos % (Auto) 0.1 % Baso % (Auto) 0.1 % Neut # (Auto) 12.38 H (1.4-6.5) K/uL Lymph # (Auto) 0.56 L (1.2-3.4) K/uL [place] # (Auto) 0.73 H (0.11-0.59) K/uL Eos # (Auto) 0.02 (0-0.5) K/uL Baso # (Auto) 0.01 (0-0.2) K/uL Immature Gran # (Auto) 0.07 H (0.00-0.02) K/uL APTT (21.0-31.0) Seconds PTT Ratio Sample Site Art Line POC pH 7.40 (7.35-7.45) POC pCO2 42 (35-46) mmHg POC pO2 70 L (80-95) mmHg POC HCO3 26 H (19-24) iraida/L POC Total CO2 27 (24-31) mmol/L POC Base Excess 1.0 (-9-1.8) iraida/L ABG pH (Temp Correct) 7.369 (7.35-7.45) ABG pCO2 (Temp Corrct 46 (35-46) mmHg POC ABG pO2 at Pt Temp 81 POC ABG O2 Sat 94.0 (90-95) % Sher Test NA O2 Delivery Device Ventilator POC O2 Rate 26 POC FiO2 60 % Tidal Volume 520 PEEP 10 POC Sodium 145 H (135-144) mmol/L Sodium (136-145) mmol/L POC Potassium 3.8 (3.3-5.0) mmol/L Potassium (3.5-5.1) mmol/L Chloride (98-107) mmol/L Carbon Dioxide (21-32) mmol/L Anion Gap (3-11) BUN (7-18) mg/dl Creatinine (0.6-1.4) mg/dl Est Cr Clr Drug Dosing ml/min Est GFR ( Amer) ml/min Est GFR (Non-Af Amer) ml/min BUN/Creatinine Ratio (10-20) Glucose (70-99) mg/dl POC Glucose (70-99) mg/dl POC Glucose (other) 154 H (70-99) mg/dl Calcium (8.5-10.1) mg/dl Ionized Calcium (1.12-1.32) mmol/L Phosphorus (2.5-4.9) mg/dl Magnesium (1.8-2.4) mg/dl Total Bilirubin (0.2-1) mg/dl Direct Bilirubin (0-0.2) mg/dl AST (15-37) U/L ALT (12-78) U/L Alkaline Phosphatase (45-117) U/L Troponin I (0-0.045) ng/ml Total Protein (6.4-8.2) gm/dl Albumin (3.4-5.0) gm/dl Adenovirus (PCR) (NotDetected) B. pertussis DNA (PCR) (NotDetected) B.parapertussis DNA PCR (NotDetected) C. pneumoniae DNA (PCR) (NotDetected) Coronavirus OC43 (PCR) (NotDetected) Coronavirus HKU1 (PCR) (NotDetected) Coronavirus 229E (PCR) (NotDetected) COVID-19 Eval Order SARS-CoV-2 (PCR) (NotDetected) Coronavirus NL63 (PCR) (NotDetected) Human Metapneumovir PCR (NotDetected) Influenza Type A (PCR) (NotDetected) Influenza Type B (PCR) (NotDetected) M. pneumoniae (PCR) (NotDetected) Parainfluenza 1 (PCR) (NotDetected) Parainfluenza 2 (PCR) (NotDetected) Parainfluenza 3 (PCR) (NotDetected) Parainfluenza 4 (PCR) (NotDetected) RSV (PCR) (NotDetected) Entero/Rhino (PCR) (NotDetected) 04/08/21 04/08/21 04/07/21 Range/Units 02:34 00:34 23:03 WBC (4.8-10.8) K/uL RBC (4.7-6.1) M/uL Hgb (14.0-18.0) g/dL POC Hgb (14.0-18.0) g/dl Hct (42-52) % POC Hct (42-52) % MCV (80-100) fL MCH (25-34) pg MCHC (32-36) g/dL RDW Std Deviation (36.4-46.3) fL RDW Coeff of Sujit (11.5-14.5) % Plt Count (130-400) K/uL MPV (7.4-10.4) fL Immature Gran % (Auto) % Neut % (Auto) % Lymph % (Auto) % [place] % (Auto) % Eos % (Auto) % Baso % (Auto) % Neut # (Auto) (1.4-6.5) K/uL Lymph # (Auto) (1.2-3.4) K/uL [place] # (Auto) (0.11-0.59) K/uL Eos # (Auto) (0-0.5) K/uL Baso # (Auto) (0-0.2) K/uL Immature Gran # (Auto) (0.00-0.02) K/uL APTT 27.6 (21.0-31.0) Seconds PTT Ratio 1.0 Sample Site POC pH (7.35-7.45) POC pCO2 (35-46) mmHg POC pO2 (80-95) mmHg POC HCO3 (19-24) iraida/L POC Total CO2 (24-31) mmol/L POC Base Excess (-9-1.8) iraida/L ABG pH (Temp Correct) (7.35-7.45) ABG pCO2 (Temp Corrct (35-46) mmHg POC ABG pO2 at Pt Temp POC ABG O2 Sat (90-95) % Sher Test O2 Delivery Device POC O2 Rate POC FiO2 % Tidal Volume PEEP POC Sodium (135-144) mmol/L Sodium (136-145) mmol/L POC Potassium (3.3-5.0) mmol/L Potassium (3.5-5.1) mmol/L Chloride (98-107) mmol/L Carbon Dioxide (21-32) mmol/L Anion Gap (3-11) BUN (7-18) mg/dl Creatinine (0.6-1.4) mg/dl Est Cr Clr Drug Dosing ml/min Est GFR ( Amer) ml/min Est GFR (Non-Af Amer) ml/min BUN/Creatinine Ratio (10-20) Glucose (70-99) mg/dl POC Glucose (70-99) mg/dl POC Glucose (other) 200 H (70-99) mg/dl Calcium (8.5-10.1) mg/dl Ionized Calcium (1.12-1.32) mmol/L Phosphorus (2.5-4.9) mg/dl Magnesium (1.8-2.4) mg/dl Total Bilirubin (0.2-1) mg/dl Direct Bilirubin (0-0.2) mg/dl AST (15-37) U/L ALT (12-78) U/L Alkaline Phosphatase (45-117) U/L Troponin I 0.098 H* (0-0.045) ng/ml Total Protein (6.4-8.2) gm/dl Albumin (3.4-5.0) gm/dl Adenovirus (PCR) (NotDetected) B. pertussis DNA (PCR) (NotDetected) B.parapertussis DNA PCR (NotDetected) C. pneumoniae DNA (PCR) (NotDetected) Coronavirus OC43 (PCR) (NotDetected) Coronavirus HKU1 (PCR) (NotDetected) Coronavirus 229E (PCR) (NotDetected) COVID-19 Eval Order SARS-CoV-2 (PCR) (NotDetected) Coronavirus NL63 (PCR) (NotDetected) Human Metapneumovir PCR (NotDetected) Influenza Type A (PCR) (NotDetected) Influenza Type B (PCR) (NotDetected) M. pneumoniae (PCR) (NotDetected) Parainfluenza 1 (PCR) (NotDetected) Parainfluenza 2 (PCR) (NotDetected) Parainfluenza 3 (PCR) (NotDetected) Parainfluenza 4 (PCR) (NotDetected) RSV (PCR) (NotDetected) Entero/Rhino (PCR) (NotDetected) 04/07/21 04/07/21 04/07/21 Range/Units 20:56 20:43 20:36 WBC (4.8-10.8) K/uL RBC (4.7-6.1) M/uL Hgb (14.0-18.0) g/dL POC Hgb 10.9 L (14.0-18.0) g/dl Hct (42-52) % POC Hct 32 L (42-52) % MCV (80-100) fL MCH (25-34) pg MCHC (32-36) g/dL RDW Std Deviation (36.4-46.3) fL RDW Coeff of Sujit (11.5-14.5) % Plt Count (130-400) K/uL MPV (7.4-10.4) fL Immature Gran % (Auto) % Neut % (Auto) % Lymph % (Auto) % [place] % (Auto) % Eos % (Auto) % Baso % (Auto) % Neut # (Auto) (1.4-6.5) K/uL Lymph # (Auto) (1.2-3.4) K/uL [place] # (Auto) (0.11-0.59) K/uL Eos # (Auto) (0-0.5) K/uL Baso # (Auto) (0-0.2) K/uL Immature Gran # (Auto) (0.00-0.02) K/uL APTT (21.0-31.0) Seconds PTT Ratio Sample Site Art Line POC pH 7.33 L (7.35-7.45) POC pCO2 51 H (35-46) mmHg POC pO2 107 H (80-95) mmHg POC HCO3 27 H (19-24) iraida/L POC Total CO2 29 (24-31) mmol/L POC Base Excess 1.0 (-9-1.8) iraida/L ABG pH (Temp Correct) 7.302 L (7.35-7.45) ABG pCO2 (Temp Corrct 56 H (35-46) mmHg POC ABG pO2 at Pt Temp 119 POC ABG O2 Sat 98.0 H (90-95) % Sher Test NA O2 Delivery Device Ventilator POC O2 Rate 26 POC FiO2 100 % Tidal Volume 520 PEEP 10 POC Sodium 145 H (135-144) mmol/L Sodium (136-145) mmol/L POC Potassium 3.5 (3.3-5.0) mmol/L Potassium (3.5-5.1) mmol/L Chloride (98-107) mmol/L Carbon Dioxide (21-32) mmol/L Anion Gap (3-11) BUN (7-18) mg/dl Creatinine (0.6-1.4) mg/dl Est Cr Clr Drug Dosing ml/min Est GFR ( Amer) ml/min Est GFR (Non-Af Amer) ml/min BUN/Creatinine Ratio (10-20) Glucose (70-99) mg/dl POC Glucose (70-99) mg/dl POC Glucose (other) 223 H (70-99) mg/dl Calcium (8.5-10.1) mg/dl Ionized Calcium 1.18 (1.12-1.32) mmol/L Phosphorus (2.5-4.9) mg/dl Magnesium (1.8-2.4) mg/dl Total Bilirubin (0.2-1) mg/dl Direct Bilirubin (0-0.2) mg/dl AST (15-37) U/L ALT (12-78) U/L Alkaline Phosphatase (45-117) U/L Troponin I (0-0.045) ng/ml Total Protein (6.4-8.2) gm/dl Albumin (3.4-5.0) gm/dl Adenovirus (PCR) (NotDetected) B. pertussis DNA (PCR) (NotDetected) B.parapertussis DNA PCR (NotDetected) C. pneumoniae DNA (PCR) (NotDetected) Coronavirus OC43 (PCR) (NotDetected) Coronavirus HKU1 (PCR) (NotDetected) Coronavirus 229E (PCR) (NotDetected) COVID-19 Eval Order SARS-CoV-2 (PCR) (NotDetected) Coronavirus NL63 (PCR) (NotDetected) Human Metapneumovir PCR (NotDetected) Influenza Type A (PCR) (NotDetected) Influenza Type B (PCR) (NotDetected) M. pneumoniae (PCR) (NotDetected) Parainfluenza 1 (PCR) (NotDetected) Parainfluenza 2 (PCR) (NotDetected) Parainfluenza 3 (PCR) (NotDetected) Parainfluenza 4 (PCR) (NotDetected) RSV (PCR) (NotDetected) Entero/Rhino (PCR) (NotDetected) 04/07/21 04/07/21 04/07/21 Range/Units 20:29 17:56 14:32 WBC (4.8-10.8) K/uL RBC (4.7-6.1) M/uL Hgb (14.0-18.0) g/dL POC Hgb (14.0-18.0) g/dl Hct (42-52) % POC Hct (42-52) % MCV (80-100) fL MCH (25-34) pg MCHC (32-36) g/dL RDW Std Deviation (36.4-46.3) fL RDW Coeff of Sujit (11.5-14.5) % Plt Count (130-400) K/uL MPV (7.4-10.4) fL Immature Gran % (Auto) % Neut % (Auto) % Lymph % (Auto) % [place] % (Auto) % Eos % (Auto) % Baso % (Auto) % Neut # (Auto) (1.4-6.5) K/uL Lymph # (Auto) (1.2-3.4) K/uL [place] # (Auto) (0.11-0.59) K/uL Eos # (Auto) (0-0.5) K/uL Baso # (Auto) (0-0.2) K/uL Immature Gran # (Auto) (0.00-0.02) K/uL APTT (21.0-31.0) Seconds PTT Ratio Sample Site POC pH (7.35-7.45) POC pCO2 (35-46) mmHg POC pO2 (80-95) mmHg POC HCO3 (19-24) iraida/L POC Total CO2 (24-31) mmol/L POC Base Excess (-9-1.8) iraida/L ABG pH (Temp Correct) (7.35-7.45) ABG pCO2 (Temp Corrct (35-46) mmHg POC ABG pO2 at Pt Temp POC ABG O2 Sat (90-95) % Sher Test O2 Delivery Device POC O2 Rate POC FiO2 % Tidal Volume PEEP POC Sodium (135-144) mmol/L Sodium 147 H (136-145) mmol/L POC Potassium (3.3-5.0) mmol/L Potassium 3.7 (3.5-5.1) mmol/L Chloride 113 H (98-107) mmol/L Carbon Dioxide 24 (21-32) mmol/L Anion Gap 9.0 (3-11) BUN 57 H (7-18) mg/dl Creatinine 1.26 (0.6-1.4) mg/dl Est Cr Clr Drug Dosing 80.4 ml/min Est GFR ( Amer) 71.4 ml/min Est GFR (Non-Af Amer) 61.6 ml/min BUN/Creatinine Ratio 45.6 H (10-20) Glucose 219 H (70-99) mg/dl POC Glucose 156 H (70-99) mg/dl POC Glucose (other) (70-99) mg/dl Calcium 9.0 (8.5-10.1) mg/dl Ionized Calcium (1.12-1.32) mmol/L Phosphorus 3.9 D (2.5-4.9) mg/dl Magnesium 2.6 H (1.8-2.4) mg/dl Total Bilirubin (0.2-1) mg/dl Direct Bilirubin (0-0.2) mg/dl AST (15-37) U/L ALT (12-78) U/L Alkaline Phosphatase (45-117) U/L Troponin I 0.128 H* 0.139 H* (0-0.045) ng/ml Total Protein (6.4-8.2) gm/dl Albumin (3.4-5.0) gm/dl Adenovirus (PCR) (NotDetected) B. pertussis DNA (PCR) (NotDetected) B.parapertussis DNA PCR (NotDetected) C. pneumoniae DNA (PCR) (NotDetected) Coronavirus OC43 (PCR) (NotDetected) Coronavirus HKU1 (PCR) (NotDetected) Coronavirus 229E (PCR) (NotDetected) COVID-19 Eval Order SARS-CoV-2 (PCR) (NotDetected) Coronavirus NL63 (PCR) (NotDetected) Human Metapneumovir PCR (NotDetected) Influenza Type A (PCR) (NotDetected) Influenza Type B (PCR) (NotDetected) M. pneumoniae (PCR) (NotDetected) Parainfluenza 1 (PCR) (NotDetected) Parainfluenza 2 (PCR) (NotDetected) Parainfluenza 3 (PCR) (NotDetected) Parainfluenza 4 (PCR) (NotDetected) RSV (PCR) (NotDetected) Entero/Rhino (PCR) (NotDetected) 04/07/21 04/07/21 04/07/21 Range/Units 11:59 10:47 10:47 WBC (4.8-10.8) K/uL RBC (4.7-6.1) M/uL Hgb (14.0-18.0) g/dL POC Hgb (14.0-18.0) g/dl Hct (42-52) % POC Hct (42-52) % MCV (80-100) fL MCH (25-34) pg MCHC (32-36) g/dL RDW Std Deviation (36.4-46.3) fL RDW Coeff of Sujit (11.5-14.5) % Plt Count (130-400) K/uL MPV (7.4-10.4) fL Immature Gran % (Auto) % Neut % (Auto) % Lymph % (Auto) % [place] % (Auto) % Eos % (Auto) % Baso % (Auto) % Neut # (Auto) (1.4-6.5) K/uL Lymph # (Auto) (1.2-3.4) K/uL [place] # (Auto) (0.11-0.59) K/uL Eos # (Auto) (0-0.5) K/uL Baso # (Auto) (0-0.2) K/uL Immature Gran # (Auto) (0.00-0.02) K/uL APTT (21.0-31.0) Seconds PTT Ratio Sample Site POC pH (7.35-7.45) POC pCO2 (35-46) mmHg POC pO2 (80-95) mmHg POC HCO3 (19-24) iraida/L POC Total CO2 (24-31) mmol/L POC Base Excess (-9-1.8) iraida/L ABG pH (Temp Correct) (7.35-7.45) ABG pCO2 (Temp Corrct (35-46) mmHg POC ABG pO2 at Pt Temp POC ABG O2 Sat (90-95) % Sher Test O2 Delivery Device POC O2 Rate POC FiO2 % Tidal Volume PEEP POC Sodium (135-144) mmol/L Sodium (136-145) mmol/L POC Potassium (3.3-5.0) mmol/L Potassium (3.5-5.1) mmol/L Chloride (98-107) mmol/L Carbon Dioxide (21-32) mmol/L Anion Gap (3-11) BUN (7-18) mg/dl Creatinine (0.6-1.4) mg/dl Est Cr Clr Drug Dosing ml/min Est GFR ( Amer) ml/min Est GFR (Non-Af Amer) ml/min BUN/Creatinine Ratio (10-20) Glucose (70-99) mg/dl POC Glucose 181 H (70-99) mg/dl POC Glucose (other) (70-99) mg/dl Calcium (8.5-10.1) mg/dl Ionized Calcium (1.12-1.32) mmol/L Phosphorus (2.5-4.9) mg/dl Magnesium (1.8-2.4) mg/dl Total Bilirubin (0.2-1) mg/dl Direct Bilirubin (0-0.2) mg/dl AST (15-37) U/L ALT (12-78) U/L Alkaline Phosphatase (45-117) U/L Troponin I (0-0.045) ng/ml Total Protein (6.4-8.2) gm/dl Albumin (3.4-5.0) gm/dl Adenovirus (PCR) Not Detected (NotDetected) B. pertussis DNA (PCR) Not Detected (NotDetected) B.parapertussis DNA PCR Not Detected (NotDetected) C. pneumoniae DNA (PCR) Not Detected (NotDetected) Coronavirus OC43 (PCR) Not Detected (NotDetected) Coronavirus HKU1 (PCR) Not Detected (NotDetected) Coronavirus 229E (PCR) Not Detected (NotDetected) COVID-[facility] Eval [facility] SARS-CoV-2 (PCR) DETECTED A* (NotDetected) Coronavirus NL63 (PCR) Not Detected (NotDetected) Human Metapneumovir PCR Not Detected (NotDetected) Influenza Type A (PCR) Not Detected (NotDetected) Influenza Type B (PCR) Not Detected (NotDetected) M. pneumoniae (PCR) Not Detected (NotDetected) Parainfluenza 1 (PCR) Not Detected (NotDetected) Parainfluenza 2 (PCR) Not Detected (NotDetected) Parainfluenza 3 (PCR) Not Detected (NotDetected) Parainfluenza 4 (PCR) Not Detected (NotDetected) RSV (PCR) Not Detected (NotDetected) Entero/Rhino (PCR) Not Detected (NotDetected) 04/07/21 Range/Units 05:32 WBC (4.8-10.8) K/uL RBC (4.7-6.1) M/uL Hgb (14.0-18.0) g/dL POC Hgb 11.2 L (14.0-18.0) g/dl Hct (42-52) % POC Hct 33 L (42-52) % MCV (80-100) fL MCH (25-34) pg MCHC (32-36) g/dL RDW Std Deviation (36.4-46.3) fL RDW Coeff of Sujit (11.5-14.5) % Plt Count (130-400) K/uL MPV (7.4-10.4) fL Immature Gran % (Auto) % Neut % (Auto) % Lymph % (Auto) % [place] % (Auto) % Eos % (Auto) % Baso % (Auto) % Neut # (Auto) (1.4-6.5) K/uL Lymph # (Auto) (1.2-3.4) K/uL [place] # (Auto) (0.11-0.59) K/uL Eos # (Auto) (0-0.5) K/uL Baso # (Auto) (0-0.2) K/uL Immature Gran # (Auto) (0.00-0.02) K/uL APTT (21.0-31.0) Seconds PTT Ratio Sample Site Art Line POC pH 7.32 L (7.35-7.45) POC pCO2 53 H (35-46) mmHg POC pO2 84 (80-95) mmHg POC HCO3 28 H (19-24) iraida/L POC Total CO2 29 (24-31) mmol/L POC Base Excess 2.0 H (-9-1.8) [place]/L ABG pH (Temp Correct) 7.311 L (7.35-7.45) ABG pCO2 (Temp Corrct 55 H (35-46) mmHg POC ABG pO2 at Pt Temp 88 POC ABG O2 Sat 95.0 (90-95) % Sher Test NA O2 Delivery Device Ventilator POC O2 Rate 24 POC FiO2 70 % Tidal Volume 520 PEEP 10 POC Sodium 145 H (135-144) mmol/L Sodium (136-145) mmol/L POC Potassium 3.7 (3.3-5.0) mmol/L Potassium (3.5-5.1) mmol/L Chloride (98-107) mmol/L Carbon Dioxide (21-32) mmol/L Anion Gap (3-11) BUN (7-18) mg/dl Creatinine (0.6-1.4) mg/dl Est Cr Clr Drug Dosing ml/min Est GFR ( Amer) ml/min Est GFR (Non-Af Amer) ml/min BUN/Creatinine Ratio (10-20) Glucose (70-99) mg/dl POC Glucose (70-99) mg/dl POC Glucose (other) (70-99) mg/dl Calcium (8.5-10.1) mg/dl Ionized Calcium (1.12-1.32) mmol/L Phosphorus (2.5-4.9) mg/dl Magnesium (1.8-2.4) mg/dl Total Bilirubin (0.2-1) mg/dl Direct Bilirubin (0-0.2) mg/dl AST (15-37) U/L ALT (12-78) U/L Alkaline Phosphatase (45-117) U/L Troponin I (0-0.045) ng/ml Total Protein (6.4-8.2) gm/dl Albumin (3.4-5.0) gm/dl Adenovirus (PCR) (NotDetected) B. pertussis DNA (PCR) (NotDetected) B.parapertussis DNA PCR (NotDetected) C. pneumoniae DNA (PCR) (NotDetected) Coronavirus OC43 (PCR) (NotDetected) Coronavirus HKU1 (PCR) (NotDetected) Coronavirus 229E (PCR) (NotDetected) COVID-19 Eval Order SARS-CoV-2 (PCR) (NotDetected) Coronavirus NL63 (PCR) (NotDetected) Human Metapneumovir PCR (NotDetected) Influenza Type A (PCR) (NotDetected) Influenza Type B (PCR) (NotDetected) M. pneumoniae (PCR) (NotDetected) Parainfluenza 1 (PCR) (NotDetected) Parainfluenza 2 (PCR) (NotDetected) Parainfluenza 3 (PCR) (NotDetected) Parainfluenza 4 (PCR) (NotDetected) RSV (PCR) (NotDetected) Entero/Rhino (PCR) (NotDetected) Resident Activity Tracking Resident Involvement: Resident Care Provided Care Provided: Adult Hospital Medicine
--- NOTE | 2021-04-08 07:19 | XRay Report ---
INDICATION: MN ^f/u . TECHNIQUE: Single frontal radiograph of the chest was obtained. Comparison: Comparison is made to Chest 1 view 04/07/2021 FINDINGS: Tracheostomy tube noted. Enteric tube is seen, tip is not visualized in the [id number]. Stable rig ht venous catheter. The cardiomediastinal silhouette is normal. Lungs are underinflated. Stable bilat eral lower lobe airspace opacities. There is suggestion of curly B lines and prominence of the pulmon norma vasculature. No evidence of pleural effusion or pneumothorax, although the left costophrenic angl e was not included within the field of view of this radiograph. IMPRESSION: 1. Stable multifocal airspace opacities compatible with history of pneumonia. 2. Mild to moderate pulmonary edema, likely increased from prior exam. ACT 112: Negative or not required by law. Electronically signed by: Fco Olivo M.D. 04/08/2021 7:18 AM
[2021-04-08 07:51] LABS: Partial Thromboplastin Ratio 1.3; Partial Thromboplastin Time 34.3 Seconds (21.0-31.0)
[2021-04-08] MEDS: fentaNYL citrate 2,500 MCG/250 ML BAG IV SCH ×2 (08:12→23:09)
[2021-04-08] MEDS: levoFLOXacin/D5W 750 MG/150 ML BAG IV SCH (08:13)
[2021-04-08] MEDS: GABAPENTIN 250 MG/5 ML 470 ML BTL PO SCH ×3 (08:16→20:11)
[2021-04-08] MEDS: LANSOPRAZOLE 30 MG SOLTAB OG SCH ×2 (08:17→20:14)
[2021-04-08] MEDS: OLANZapine 5 MG TABLET PO SCH (08:17)
[2021-04-08] MEDS: SENNOSIDES 8.8 MG/5 ML UDC PO SCH ×2 (08:18→20:15)
--- NOTE | 2021-04-08 09:55 | Billing Data ---
Date of Service April 08, 2021 Coding Level of Care Code Critical Care 1st - mins
[2021-04-08] MEDS ORDERED: POTASSIUM PHOSPHATE 15 MMOL in SODIUM CHLORIDE 0.9% 250 ML IV ONE (10:00)
--- NOTE | 2021-04-08 10:34 | Hospitalist Progress Note ---
Date of Service April 08, 2021 Assessment & Plan (1) Acute respiratory failure with hypoxia: Plan: due to COVID 19 pneumonia, bilateral infiltrates on CXR Was requiring prone positioning and BiPAP while awake, but then weaned down to wall high flow nasal cannula at 11-15 L on 03/23 However, on 03/24 worsened again was placed back on Vapotherm high flow nasal cannula On 03/25, requiring higher amounts of oxygen at 40 L and up to 80 % FiO2 to maintain pulse ox 90-91% On 03/26 switched to Ventilator HFNC at 60L, 100% FiO2 to keep POx>88%---> continued to decompensate on the morning of 03/27 and was intubated and proned Previously had pneumomediastinum which is now resolved Status post tocilizumab on 03/21 CRP trended downward Completed a course of high-dose dexamethasone initially with 10 mg daily and then on 03/28, increased to 20 mg daily x5 days, then 10 mg daily x5 days IV Lasix daily to keep in a negative fluid balance, was given along with albumin today Ventilator management as per java tech lead Has failed multiple SBTs Now status post tracheostomy on 04/05 Continue to wean off ventilator as able to and pulmonary edema Is dyssynchronous with the ventilator at times Chest x-ray still with significant bilateral infiltrates, off Precedex Fentanyl only as needed Sedation weaning as per java tech lead, now on Zyprexa Earlier in the hospital course, the Arcade Game Technician contacted [facility] about ECMO-no beds available on 03/28. Kate said that he is not a candidate for ECMO at their facility as age greater than 55 and was on high flow nasal cannula for greater than 3 days (2) Fever: Plan: With SIRS, but no definite source of sepsis found Fevers started on 04/02, then resolved UA is clean on 04/02 CXR with persistent infiltrates blood cultures - no growth from 04/02 Sputum culture from 04/02 growing group G beta Streptococcus which has been adequately treated with no improvement in fever procalcitonin now elevated at 1.7 Continues with recurrent fevers since 04/05-acute sinusitis, UTI, VAP, line infection, bacteremia, drug fever all possibilities -blood cultures repeated on 04/08 Arterial line removed on 04/08, central line remains in place Dopplers of lower extremities negative for DVT MRI brain with sinusitis and mastoid effusions-could be from acute sinusitis? MRSA swab remains negative WBC count jumped up to 23 and now down to 13 Previously on Zosyn but was discontinued on 04/06 -Started cefepime and vancomycin on 04/06 for broad-spectrum coverage x1 dose -changed to Levaquin and Flagyl on 04/07-continues on these -Follow CBC and repeat cultures (3) SVT (supraventricular tachycardia): Plan: Had SVT to the 200s on the evening of 04/07 with associated hypotension requiring esmolol, amiodarone, adenosine x3, synchronized cardioversion x5 Now back in normal sinus rhythm Restarting metoprolol per per NG tube Wean off esmolol drip Continue amiodarone drip Replace electrolytes Now on therapeutic Lovenox due to paroxysmal atrial fibrillation (4) Pneumonia due to COVID-19 virus: Plan: Symptom onset: approximately March 09, says he just got dyspnea and cough a few days prior to admission-became really short of breath on 03/20 so he came to the ED bilateral infiltrates on CXR, CRP 18 and then decreased after receiving Tocilizumab and dexamethasone Completed course of dexamethasone Completed 5-day course of Rocephin/Zithromax Was too far along in course of illness to give Remdesivir, no benefit Received Tocilizumab on 03/21 CTA chest: no pulmonary embolism, just shows diffuse infiltrates initially CXR still with bilateral infiltrates Sputum culture with group C beta strep as above-on antibiotics still requiring mechanical ventilation, now status post tracheostomy (5) Transaminitis: Plan: Persists, likely secondary to COVID-19 infection, but could be medication side effect Improving (6) Bradycardia: Plan: with sinus terry initially while on BIPAP Since that time, was in sinus tachycardia But also had atrial fibrillation briefly on the night of 04/05 and SVT on the evening of 04/07 On afternoon of 04/07 had a couple 4-second pauses after starting p.o. metoprolol which was then held Restart metoprolol (7) Hypotension: Plan: Has intermittently required vasopressors especially with SVT and rapid atrial fibrillation Now resolved, off vasopressors Received IV Lasix and albumin today (8) Pneumomediastinum: Plan: Now resolved (9) ROSARIO (acute kidney injury): Plan: -Early in the course, now resolved Making urine, Rogers catheter in place Lasix PRN to keep negative fluid balance (10) Elevated troponin: Plan: Troponin elevated at 0.13/0.1/0.09 Could be myocardial demand ischemia given ongoing SIRS, although ECG with ST depression and T wave inversions in lateral leads which is not changed from 3 days prior Doubt acute coronary syndrome (11) Hypokalemia: Plan: Resolved with potassium replacement With hypophosphatemia-replaced with potassium phosphorus (12) BPH loc w urin obs/LUTS: Plan: Rogers catheter back in place after intubation Plan: DVT prophylaxis: Changed to therapeutic Lovenox, SCDs Disposition: Continued stay in ICU, very guarded prognosis CODE STATUS: conditional code with no compressions Admission and Anticipated Discharge Date Admission Date: March 20, 2021 Subjective Patient had SVT last night with heart rate in the 200s with associated hypotension. He was given adenosine x3 doses which was not effective. He was then cardioverted 5 times and given esmolol, and 3 boluses of amiodarone before he finally reverted back to normal sinus rhythm. He was given Pako-Synephrine. He continues to be persistently febrile. I discussed his care with the java tech lead at the multidisciplinary ICU rounds. Plan to remove his A-line and draw blood cultures Discontinue esmolol drip, restart metoprolol, discontinue phenylephrine Giving IV Lasix and IV albumin Review of Systems Review of Systems: Unobtainable due to cognitive status Physical Exam Constitutional: WD/WN, vitals as above + ill appearing and + mechanically ventilated Results & Data Results & Data ([facility]) Vital Signs (Past 12 Hours) Vital Signs Temp Pulse Resp BP Pulse Ox 04/08/21 08:00 120/56 L 04/08/21 07:30 82 29 H 92 04/08/21 07:20 77 20 92 04/08/21 07:00 81 04/08/21 05:35 38.6 C H 71 113/63 93 04/08/21 05:05 38.8 C H 74 119/66 93 04/08/21 04:35 38.9 C H 79 130/71 93 04/08/21 04:05 39.0 C H 76 147/74 H 93 04/08/21 04:00 76 115/53 L 04/08/21 03:35 39.1 C H 72 156/91 H 94 04/08/21 03:30 29 H 04/08/21 03:05 39.1 C H 73 144/76 H 94 04/08/21 02:35 39.1 C H 81 147/77 H 92 04/08/21 02:05 39.0 C H 78 142/78 H 93 04/08/21 01:35 39.0 C H 77 140/78 93 04/08/21 01:05 38.8 C H 80 138/72 92 04/08/21 00:35 38.7 C H 75 141/67 H 92 04/08/21 00:05 38.6 C H 90 153/82 H 93 04/07/21 23:35 38.7 C H 77 132/68 93 04/07/21 23:05 38.7 C H 84 131/69 93 04/07/21 23:00 79 04/07/21 22:53 88 26 H 93 04/07/21 22:35 38.7 C H 85 141/77 H 95 Laboratory Results 04/08/21 04/08/21 04/08/21 Range/Units 16:21 12:31 08:40 WBC (4.8-10.8) K/uL RBC (4.7-6.1) M/uL Hgb (14.0-18.0) g/dL POC Hgb (14.0-18.0) g/dl Hct (42-52) % POC Hct (42-52) % MCV (80-100) fL MCH (25-34) pg MCHC (32-36) g/dL RDW Std Deviation (36.4-46.3) fL RDW Coeff of Sujit (11.5-14.5) % Plt Count (130-400) K/uL MPV (7.4-10.4) fL Immature Gran % (Auto) % Neut % (Auto) % Lymph % (Auto) % Kidder % (Auto) % Eos % (Auto) % Baso % (Auto) % Neut # (Auto) (1.4-6.5) K/uL Lymph # (Auto) (1.2-3.4) K/uL Kidder # (Auto) (0.11-0.59) K/uL Eos # (Auto) (0-0.5) K/uL Baso # (Auto) (0-0.2) K/uL Immature Gran # (Auto) (0.00-0.02) K/uL APTT (21.0-31.0) Seconds PTT Ratio Sample Site POC pH (7.35-7.45) POC pCO2 (35-46) mmHg POC pO2 (80-95) mmHg POC HCO3 (19-24) iraida/L POC Total CO2 (24-31) mmol/L POC Base Excess (-9-1.8) iraida/L ABG pH (Temp Correct) (7.35-7.45) ABG pCO2 (Temp Corrct (35-46) mmHg POC ABG pO2 at Pt Temp POC ABG O2 Sat (90-95) % Sher Test O2 Delivery Device POC O2 Rate POC FiO2 % Tidal Volume PEEP POC Sodium (135-144) mmol/L Sodium (136-145) mmol/L POC Potassium (3.3-5.0) mmol/L Potassium (3.5-5.1) mmol/L Chloride (98-107) mmol/L Carbon Dioxide (21-32) mmol/L Anion Gap (3-11) BUN (7-18) mg/dl Creatinine (0.6-1.4) mg/dl Est Cr Clr Drug Dosing ml/min Est GFR ( Amer) ml/min Est GFR (Non-Af Amer) ml/min BUN/Creatinine Ratio (10-20) Glucose (70-99) mg/dl POC Glucose 128 H 183 H 161 H (70-99) mg/dl POC Glucose (other) (70-99) mg/dl Calcium (8.5-10.1) mg/dl Ionized Calcium (1.12-1.32) mmol/L Phosphorus (2.5-4.9) mg/dl Magnesium (1.8-2.4) mg/dl Total Bilirubin (0.2-1) mg/dl Direct Bilirubin (0-0.2) mg/dl AST (15-37) U/L ALT (12-78) U/L Alkaline Phosphatase (45-117) U/L Troponin I (0-0.045) ng/ml Total Protein (6.4-8.2) gm/dl Albumin (3.4-5.0) gm/dl 04/08/21 04/08/21 04/08/21 Range/Units 07:22 05:10 05:10 WBC 13.77 H (4.8-10.8) K/uL RBC 3.52 L (4.7-6.1) M/uL Hgb 10.6 L (14.0-18.0) g/dL POC Hgb (14.0-18.0) g/dl Hct 32.9 L (42-52) % POC Hct (42-52) % MCV 93.5 (80-100) fL MCH 30.1 (25-34) pg MCHC 32.2 (32-36) g/dL RDW Std Deviation 51.3 H (36.4-46.3) fL RDW Coeff of Sujit 15.1 H (11.5-14.5) % Plt Count 200 (130-400) K/uL MPV 9.9 (7.4-10.4) fL Immature Gran % (Auto) 0.5 % Neut % (Auto) 89.9 % Lymph % (Auto) 4.1 % Kidder % (Auto) 5.3 % Eos % (Auto) 0.1 % Baso % (Auto) 0.1 % Neut # (Auto) 12.38 H (1.4-6.5) K/uL Lymph # (Auto) 0.56 L (1.2-3.4) K/uL Kidder # (Auto) 0.73 H (0.11-0.59) K/uL Eos # (Auto) 0.02 (0-0.5) K/uL Baso # (Auto) 0.01 (0-0.2) K/uL Immature Gran # (Auto) 0.07 H (0.00-0.02) K/uL APTT 34.3 H (21.0-31.0) Seconds PTT Ratio 1.3 Sample Site POC pH (7.35-7.45) POC pCO2 (35-46) mmHg POC pO2 (80-95) mmHg POC HCO3 (19-24) iraida/L POC Total CO2 (24-31) mmol/L POC Base Excess (-9-1.8) iraida/L ABG pH (Temp Correct) (7.35-7.45) ABG pCO2 (Temp Corrct (35-46) mmHg POC ABG pO2 at Pt Temp POC ABG O2 Sat (90-95) % Sher Test O2 Delivery Device POC O2 Rate POC FiO2 % Tidal Volume PEEP POC Sodium (135-144) mmol/L Sodium 144 (136-145) mmol/L POC Potassium (3.3-5.0) mmol/L Potassium 4.0 (3.5-5.1) mmol/L Chloride 115 H (98-107) mmol/L Carbon Dioxide 27 (21-32) mmol/L Anion Gap 2.0 L (3-11) BUN 56 H (7-18) mg/dl Creatinine 1.18 (0.6-1.4) mg/dl Est Cr Clr Drug Dosing 84.9 ml/min Est GFR ( Amer) 77.3 ml/min Est GFR (Non-Af Amer) 66.7 ml/min BUN/Creatinine Ratio 47.7 H (10-20) Glucose 149 H (70-99) mg/dl POC Glucose (70-99) mg/dl POC Glucose (other) (70-99) mg/dl Calcium 8.7 (8.5-10.1) mg/dl Ionized Calcium (1.12-1.32) mmol/L Phosphorus 2.4 L D (2.5-4.9) mg/dl Magnesium 2.8 H (1.8-2.4) mg/dl Total Bilirubin 0.4 (0.2-1) mg/dl Direct Bilirubin 0.2 (0-0.2) mg/dl AST 21 (15-37) U/L ALT 57 (12-78) U/L Alkaline Phosphatase 136 H (45-117) U/L Troponin I (0-0.045) ng/ml Total Protein 5.6 L (6.4-8.2) gm/dl Albumin 1.5 L (3.4-5.0) gm/dl 04/08/21 04/08/21 04/08/21 Range/Units 04:28 03:32 02:34 WBC (4.8-10.8) K/uL RBC (4.7-6.1) M/uL Hgb (14.0-18.0) g/dL POC Hgb 10.2 L (14.0-18.0) g/dl Hct (42-52) % POC Hct 30 L (42-52) % MCV (80-100) fL MCH (25-34) pg MCHC (32-36) g/dL RDW Std Deviation (36.4-46.3) fL RDW Coeff of Sujit (11.5-14.5) % Plt Count (130-400) K/uL MPV (7.4-10.4) fL Immature Gran % (Auto) % Neut % (Auto) % Lymph % (Auto) % Kidder % (Auto) % Eos % (Auto) % Baso % (Auto) % Neut # (Auto) (1.4-6.5) K/uL Lymph # (Auto) (1.2-3.4) K/uL Kidder # (Auto) (0.11-0.59) K/uL Eos # (Auto) (0-0.5) K/uL Baso # (Auto) (0-0.2) K/uL Immature Gran # (Auto) (0.00-0.02) K/uL APTT (21.0-31.0) Seconds PTT Ratio Sample Site Art Line POC pH 7.40 (7.35-7.45) POC pCO2 42 (35-46) mmHg POC pO2 70 L (80-95) mmHg POC HCO3 26 H (19-24) iraida/L POC Total CO2 27 (24-31) mmol/L POC Base Excess 1.0 (-9-1.8) iraida/L ABG pH (Temp Correct) 7.369 (7.35-7.45) ABG pCO2 (Temp Corrct 46 (35-46) mmHg POC ABG pO2 at Pt Temp 81 POC ABG O2 Sat 94.0 (90-95) % Sher Test NA O2 Delivery Device Ventilator POC O2 Rate 26 POC FiO2 60 % Tidal Volume 520 PEEP 10 POC Sodium 145 H (135-144) mmol/L Sodium (136-145) mmol/L POC Potassium 3.8 (3.3-5.0) mmol/L Potassium (3.5-5.1) mmol/L Chloride (98-107) mmol/L Carbon Dioxide (21-32) mmol/L Anion Gap (3-11) BUN (7-18) mg/dl Creatinine (0.6-1.4) mg/dl Est Cr Clr Drug Dosing ml/min Est GFR ( Amer) ml/min Est GFR (Non-Af Amer) ml/min BUN/Creatinine Ratio (10-20) Glucose (70-99) mg/dl POC Glucose (70-99) mg/dl POC Glucose (other) 154 H (70-99) mg/dl Calcium (8.5-10.1) mg/dl Ionized Calcium (1.12-1.32) mmol/L Phosphorus (2.5-4.9) mg/dl Magnesium (1.8-2.4) mg/dl Total Bilirubin (0.2-1) mg/dl Direct Bilirubin (0-0.2) mg/dl AST (15-37) U/L ALT (12-78) U/L Alkaline Phosphatase (45-117) U/L Troponin I 0.098 H* (0-0.045) ng/ml Total Protein (6.4-8.2) gm/dl Albumin (3.4-5.0) gm/dl 04/08/21 04/07/21 04/07/21 Range/Units 00:34 23:03 20:56 WBC (4.8-10.8) K/uL RBC (4.7-6.1) M/uL Hgb (14.0-18.0) g/dL POC Hgb (14.0-18.0) g/dl Hct (42-52) % POC Hct (42-52) % MCV (80-100) fL MCH (25-34) pg MCHC (32-36) g/dL RDW Std Deviation (36.4-46.3) fL RDW Coeff of Sujit (11.5-14.5) % Plt Count (130-400) K/uL MPV (7.4-10.4) fL Immature Gran % (Auto) % Neut % (Auto) % Lymph % (Auto) % Kidder % (Auto) % Eos % (Auto) % Baso % (Auto) % Neut # (Auto) (1.4-6.5) K/uL Lymph # (Auto) (1.2-3.4) K/uL Kidder # (Auto) (0.11-0.59) K/uL Eos # (Auto) (0-0.5) K/uL Baso # (Auto) (0-0.2) K/uL Immature Gran # (Auto) (0.00-0.02) K/uL APTT 27.6 (21.0-31.0) Seconds PTT Ratio 1.0 Sample Site POC pH (7.35-7.45) POC pCO2 (35-46) mmHg POC pO2 (80-95) mmHg POC HCO3 (19-24) iraida/L POC Total CO2 (24-31) mmol/L POC Base Excess (-9-1.8) iraida/L ABG pH (Temp Correct) (7.35-7.45) ABG pCO2 (Temp Corrct (35-46) mmHg POC ABG pO2 at Pt Temp POC ABG O2 Sat (90-95) % Sher Test O2 Delivery Device POC O2 Rate POC FiO2 % Tidal Volume PEEP POC Sodium (135-144) mmol/L Sodium (136-145) mmol/L POC Potassium (3.3-5.0) mmol/L Potassium (3.5-5.1) mmol/L Chloride (98-107) mmol/L Carbon Dioxide (21-32) mmol/L Anion Gap (3-11) BUN (7-18) mg/dl Creatinine (0.6-1.4) mg/dl Est Cr Clr Drug Dosing ml/min Est GFR ( Amer) ml/min Est GFR (Non-Af Amer) ml/min BUN/Creatinine Ratio (10-20) Glucose (70-99) mg/dl POC Glucose (70-99) mg/dl POC Glucose (other) 200 H (70-99) mg/dl Calcium (8.5-10.1) mg/dl Ionized Calcium 1.18 (1.12-1.32) mmol/L Phosphorus (2.5-4.9) mg/dl Magnesium (1.8-2.4) mg/dl Total Bilirubin (0.2-1) mg/dl Direct Bilirubin (0-0.2) mg/dl AST (15-37) U/L ALT (12-78) U/L Alkaline Phosphatase (45-117) U/L Troponin I (0-0.045) ng/ml Total Protein (6.4-8.2) gm/dl Albumin (3.4-5.0) gm/dl 04/07/21 04/07/21 04/07/21 Range/Units 20:43 20:36 20:29 WBC (4.8-10.8) K/uL RBC (4.7-6.1) M/uL Hgb (14.0-18.0) g/dL POC Hgb 10.9 L (14.0-18.0) g/dl Hct (42-52) % POC Hct 32 L (42-52) % MCV (80-100) fL MCH (25-34) pg MCHC (32-36) g/dL RDW Std Deviation (36.4-46.3) fL RDW Coeff of Sujit (11.5-14.5) % Plt Count (130-400) K/uL MPV (7.4-10.4) fL Immature Gran % (Auto) % Neut % (Auto) % Lymph % (Auto) % Kidder % (Auto) % Eos % (Auto) % Baso % (Auto) % Neut # (Auto) (1.4-6.5) K/uL Lymph # (Auto) (1.2-3.4) K/uL Kidder # (Auto) (0.11-0.59) K/uL Eos # (Auto) (0-0.5) K/uL Baso # (Auto) (0-0.2) K/uL Immature Gran # (Auto) (0.00-0.02) K/uL APTT (21.0-31.0) Seconds PTT Ratio Sample Site Art Line POC pH 7.33 L (7.35-7.45) POC pCO2 51 H (35-46) mmHg POC pO2 107 H (80-95) mmHg POC HCO3 27 H (19-24) iraida/L POC Total CO2 29 (24-31) mmol/L POC Base Excess 1.0 (-9-1.8) iraida/L ABG pH (Temp Correct) 7.302 L (7.35-7.45) ABG pCO2 (Temp Corrct 56 H (35-46) mmHg POC ABG pO2 at Pt Temp 119 POC ABG O2 Sat 98.0 H (90-95) % Sher Test NA O2 Delivery Device Ventilator POC O2 Rate 26 POC FiO2 100 % Tidal Volume 520 PEEP 10 POC Sodium 145 H (135-144) mmol/L Sodium 147 H (136-145) mmol/L POC Potassium 3.5 (3.3-5.0) mmol/L Potassium 3.7 (3.5-5.1) mmol/L Chloride 113 H (98-107) mmol/L Carbon Dioxide 24 (21-32) mmol/L Anion Gap 9.0 (3-11) BUN 57 H (7-18) mg/dl Creatinine 1.26 (0.6-1.4) mg/dl Est Cr Clr Drug Dosing 80.4 ml/min Est GFR ( Amer) 71.4 ml/min Est GFR (Non-Af Amer) 61.6 ml/min BUN/Creatinine Ratio 45.6 H (10-20) Glucose 219 H (70-99) mg/dl POC Glucose (70-99) mg/dl POC Glucose (other) 223 H (70-99) mg/dl Calcium 9.0 (8.5-10.1) mg/dl Ionized Calcium (1.12-1.32) mmol/L Phosphorus 3.9 D (2.5-4.9) mg/dl Magnesium 2.6 H (1.8-2.4) mg/dl Total Bilirubin (0.2-1) mg/dl Direct Bilirubin (0-0.2) mg/dl AST (15-37) U/L ALT (12-78) U/L Alkaline Phosphatase (45-117) U/L Troponin I 0.128 H* (0-0.045) ng/ml Total Protein (6.4-8.2) gm/dl Albumin (3.4-5.0) gm/dl Diagnostic Findings Chest x-ray images reviewed by me and agree with following report: Chest X-Ray 04/08/21 07:00 INDICATION: MN ^f/u . TECHNIQUE: Single frontal radiograph of the chest was obtained. Comparison: Comparison is made to Chest 1 view 04/07/2021 FINDINGS: Tracheostomy tube noted. Enteric tube is seen, tip is not visualized in the [id number]. Stable right venous catheter. The cardiomediastinal silhouette is normal. Lungs are underinflated. Stable bilateral lower lobe airspace opacities. There is suggestion of curly B lines and prominence of the pulmonary vasculature. No evidence of pleural effusion or pneumothorax, although the left costophrenic angle was not included within the field of view of this radiograph. IMPRESSION: 1. Stable multifocal airspace opacities compatible with history of pneumonia. 2. Mild to moderate pulmonary edema, likely increased from prior exam. ACT 112: Negative or not required by law. Electronically signed by: Fco Olivo M.D. 04/08/2021 7:18 AM PG Care Time/CCT Total # of Minutes Spent Total Time Spent with Patient: Total time spent is greater than 50% in coordination of care (as documented) at patient's floor/unit and/or counseling patient: Coding Level of Care Code 21340 Subseq Hosp Care Lvl 2 Diagnoses Acute respiratory failure with hypoxia J96.01 Fever R50.9 Pneumonia due to COVID-19 virus U07.1; J12.82 Pneumomediastinum J98.2 ROSARIO (acute kidney injury) N17.9 Bradycardia R00.1 Transaminitis R74.01 Hypokalemia E87.6 BPH loc w urin obs/LUTS N40.1 Hypotension I95.9 Elevated troponin R77.8 SVT (supraventricular tachycardia) I47.1
[2021-04-08] MEDS: METOPROLOL TARTRATE 25 MG TAB PO SCH ×2 (11:42→20:15)
[2021-04-08] MEDS: ALBUMIN 25% 12.5 GM/50 ML VIAL IV SCH ×4 (11:42→12:38)
[2021-04-08] MEDS ORDERED: [UNRECOGNIZED DRUG - REMARK] ONE (13:00)
[2021-04-08] MEDS: hydrALAZINE HCL 20 MG/ML VIAL IV PRN (13:26)
[2021-04-08] MEDS ORDERED: FUROSEMIDE 40 MG in SYRINGE 0 ML IV SCH (14:00)
[2021-04-08] MEDS: ENOXAPARIN INJ 120 MG/0.8 ML SYR SQ SCH (20:19)
[2021-04-08] MEDS ORDERED: MIDAZOLAM HCL 1 MG/ML 2ML VIAL IV STA (23:01)
[2021-04-08] MEDS ORDERED: MIDAZOLAM HCL 1 MG/ML 2ML VIAL ONE (23:03)
[2021-04-09] MEDS: TUBE FEEDING WATER FLUSH GT SCH ×6 (01:00→21:16)
[2021-04-09] MEDS: metroNIDAZOLE 500 MG/100 ML BAG IV SCH ×3 (01:31→21:15)
[2021-04-09] MEDS: ARTIFICIAL TEARS OP OINT 3.5 GM TUBE OP SCH ×6 (01:32→23:15)
[2021-04-09] MEDS: AMIODARONE / D5W 360 MG/200 ML BAG IV SCH ×2 (01:32→15:07)
[2021-04-09] MEDS ORDERED: MIDAZOLAM HCL 1 MG/ML 2ML VIAL ONE ×3 (03:58→23:37)
[2021-04-09 04:20] LABS: iSTAT Allen Test Pass; iSTAT Art Bld Gas pCO2 Correct 49 mmHg (35-46); iSTAT Art Bld Gas pH Corrected 7.363 (7.35-7.45); iSTAT Arterial Blood Gas HCO3 28 meg/L (19-24); iSTAT Arterial Blood Gas pCO2 48 mmHg (35-46); iSTAT Arterial Blood Gas pH 7.37 (7.35-7.45); iSTAT Arterial Blood Gas pO2 85 mmHg (80-95); iSTAT Arterial Blood Gas pO2 C 88; iSTAT Carbon Dioxide 29 mmol/L (24-31); iSTAT FiO2 60 %; iSTAT Hematocrit 32 % (42-52); iSTAT Hemoglobin 10.9 g/dl (14.0-18.0); iSTAT Potassium 3.9 mmol/L (3.3-5.0); iSTAT Site R Radial; iSTAT Sodium 149 mmol/L (135-144)
[2021-04-09] MEDS: INSULIN ASPART 100 UNITS/ML 3 ML PEN SC SCH ×5 (04:38→21:56)
[2021-04-09] MEDS: PEPTAMEN INTENSE VHP 1.0 CAL 1,000 ML BAG OG SCH (04:39)
[2021-04-09 05:27] LABS: Hematocrit (blood only) 34.1 % (42-52); Hemoglobin 10.9 g/dL (14.0-18.0); Mean Corpuscular Volume 93.9 fL (80-100); Mean Platelet Volume 9.9 fL (7.4-10.4); Platelet Count 184 K/uL (130-400); RDW Coefficient of Variation 15.4 % (11.5-14.5); RDW Standard Deviation 53.6 fL (36.4-46.3); Red Blood Count 3.63 M/uL (4.7-6.1); White Blood Count 13.93 K/uL (4.8-10.8)
[2021-04-09] MEDS: hydrALAZINE HCL 20 MG/ML VIAL IV PRN ×2 (05:34→23:17)
[2021-04-09 05:48] LABS: BUN Creatinine Ratio 47.8 (10-20); Creatinine Clr Calc Pharmacy 74.3 ml/min; Est GFR (African American) 66.3 ml/min; Est GFR (Non-African American) 57.2 ml/min; Magnesium 2.9 mg/dl (1.8-2.4); Potassium 3.9 mmol/L (3.5-5.1)
[2021-04-09 05:54] LABS: Basophils # (auto) 0.01 K/uL (0-0.2); Basophils % (auto) 0.1 %; Dohle Bodies 1+; Eosinophils # (auto) 0.02 K/uL (0-0.5); Eosinophils % (auto) 0.1 %; Immature Granulocytes # (auto) 0.08 K/uL (0.00-0.02); Immature Granulocytes % (auto) 0.6 %; Lymphocytes # (auto) 0.76 K/uL (1.2-3.4); Lymphocytes % (auto) 5.5 %; Monocytes # (auto) 0.81 K/uL (0.11-0.59); Monocytes % (auto) 5.8 %; Neutrophils # (auto) 12.25 K/uL (1.4-6.5); Neutrophils % (auto) 87.9 %
[2021-04-09 06:01] LABS: Phosphorus 3.3 mg/dl (2.5-4.9)
[2021-04-09] MEDS ORDERED: MIDAZOLAM HCL 1 MG/ML 2ML VIAL IV STA ×2 (06:06→23:37)
[2021-04-09] MEDS ORDERED: MIDAZOLAM HCL 1 MG/ML 2ML VIAL IM STA (06:07)
--- NOTE | 2021-04-09 06:48 | Critical Care Progress Note ---
Date of Service April 09, 2021 Assessment & Plan (1) Acute respiratory failure with hypoxia: Plan: Reason Critically Ill: 61-year-old male with past medical history of hypertension admitted to the hospital for COVID-19 pneumonia and acute hypoxic respiratory failure, intubated 03/27/2021 PLAN: NEURO: Neuromuscular blockade with cisatracurium -- stopped 03/31/21. Patient getting as needed vecuronium. CT Head 04/02/21: Negative for any acute abnormality. MRI 04/06/21: Acute paranasal sinusitis with large bilateral mastoid effusions. Otherwise largely unremarkable. Zyprexa for ICU associated delirium. GCS score: 7 - Patient is not withdrawing from painful stimuli, GCS Glascow Coma Scale: Eyes: 4, Verbal 1T, Motor 1, Total 7T - EEG to exclude nonconvulsive status RESPIRATORY: VDRF with acute hypoxic respiratory failure, secondary to multilobar COVID-19 pneumonia - COVID-19 PCR positive 03/16/2021 - CRP 18.2 --> 9.75 --> 1.63 - S/p Tocilizumab 03/21/2021 - Intubated 03/27/2021; tracheostomy performed 04/05/21 - Continue with lung protective ventilation - High PEEP, low tidal volume to keep Plateau < 30 with permissive hypercapnea if need be. ARDS net high-dose steroid protocol - Dexamethasone 20mg x5 days, 10mg x5 days -- completed on 04/06 - Per medication hx review, patient is on prednisone 20mg po daily; on further review, it appears that the prednisone is scheduled 20mg po daily prn for gout flares but last documentation states no recent gout flares and external med refill history does not show recent fill of prednisone. Therefore, no need to taper at this point. Will watch for signs of adrenal insufficiency. Kate as well as [facility] team where contacted on 03/28/2021, unfortunately he is not a candidate from either side. - Tracheostomy performed 04/05/21 - On single agent Fentanyl for pain control --Pneumomediastinum--> resolved No signs of pneumothorax on the chest x-ray CARDIOVASCULAR: Intermittent hypertension - Continue home amlodipine - Hydralazine 10mg IV q6h prn for SBP > 160 Intermittent hypotension: Resolved - likely sec to sedation - c/w vasopressor as needed to keep MAP>65 Atrial fibrillation with RVR, resolved Starting metoprolol 25mg po BID today, 04/07 Episode of SVT evening of 04/07 - Required adenosine x3 (6, 12, 12), cardioverted 5x, amiodarone drip, esmolol bolus then with drip, and Pako-synephrine - Patient has returned to NSR - Discontinue esmolol drip, Pako-synephrine, and propofol - Attempt to wean fentanyl (currently at 175) - Transition from Heparin to lovenox 120mg SQ BID - Continue metoprolol tartrate but increase to 50mg po BID for a-fib rate control Fluids/Renal: - Goal to remain net negative - Diuresis as needed - Additional 1 mg IV Bumex provided today ID: Sinusitis - Already appropriately treated with Zosyn without significant benefit - Transitioned to levaquin and flagyl -- continue - Remains febrile - Nasal MRSA screen negative - Leukocytosis had resolved but recurred 04/06 at 23.23 --> slowly downtrending and is 13.77 today - Sputum cultures with Group G Beta strep - BLE venous dopplers performed 04/06 and were negative Repeat COVID 04/07/21 remains POSITIVE Bacteremia - Repeat blood cultures 04/08 with 1 bottle growing gram + cocci in clusters - Patient remains febrile; leukocytosis at 13.93 - Will repeat blood cultures today - Due to continued fever and cultures as noted above and no movement of extremities/does not follow commands, will order imaging for further evaluation including evaluate for epidural abscess - MRI cervical, thoracic, and lumbar w/ and w/o contrast ordered; results pending - CT chest, abd, pelvis w/ contrast ordered; results pending - 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 Appreciate their assistance - Goal for peptamen was 70 - However, this AM, reported emesis of tube feed contents in mouth and trach collar. Feeds stopped. Replace coresafe after imaging studies today. Constipation, resolved -- no bowel movement since 03/26 - Successful bowel movement overnight 04/06-04/07 after receiving lactulose, mineral oil, Senna, and methylnaltrexone Received Albumin 25%, 50mg ordered; then diurese with 40mg IV lasix on 04/08 Heme: Continue to monitor Endocrine: ICU hyperglycemia protocol Will loosen novolog requirements --Prophylaxis VTE: Lovenox GI: Lansoprazole Lines: PIV, positive Rogers Diet: continue tube feeds Patient's Mrs. Emperatriz Neri [phone] (2) Pneumonia due to COVID-19 virus: Admission and Anticipated Discharge Date Admission Date: March 20, 2021 Supervising Physician Co-Signing Physician Notes Dr. Merchant was resident physician during care of patient. I separately evaluated patient for ortiz portions of the history and the exam. I was present during the critical portion of medical decision making, and I discussed the case with the resident. I generally agree with the findings and plan. Increase metoprolol 50 mg twice daily for atrial fibrillation for rate control he is currently normal sinus rhythm on the monitor. He is systemically anticoagulated with Lovenox BID daily dosing for decreased fluid administration. On single agent fentanyl for analgesia and sedation continued decrease Reported emesis of tube feeds, place NG tube and restart at lower rate after imaging is obtained today 1 blood culture positive for gram-positive cocci, will repeat blood cultures today. 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 Thoracentesis completed will send for culture, anticipate discussion with tertiary regarding next steps i.e. aspiration of abscess versus watchful waiting and we have stopped tube feeds for presumptive necrotizing pancreatitis. Repeat blood cultures still no growth to date. Subjective Remains on ventilator. Spontaneously opens eyes but does not follow commands. No significant events overnight but patient did receive Midazolam 2mg pushes x4 overnight. Review of Systems Review of Systems: Unable to obtain due to clinical condition Physical Exam Physical Exam: See attending attestation. Results & Data Results & Data ([facility]) Vital Signs (Past 12 Hours) Vital Signs Temp Pulse Resp BP Pulse Ox 04/09/21 06:05 37.7 C H 94 H 147/82 H 92 04/09/21 05:05 37.7 C H 83 183/92 H 96 04/09/21 04:17 95 H 93 04/09/21 04:05 37.6 C H 88 157/89 H 94 04/09/21 03:05 37.9 C H 84 173/81 H 95 04/09/21 03:00 85 30 H 95 04/09/21 02:30 37.9 C H 98 H 100 04/09/21 02:08 37.9 C H 72 97 04/09/21 01:05 37.9 C H 82 130/65 95 04/09/21 00:05 38.1 C H 89 136/66 94 04/08/21 23:06 105 H 29 H 95 04/08/21 23:05 38.3 C H 109 H 148/88 H 95 04/08/21 23:00 95 H 04/08/21 22:05 38.4 C H 105 H 172/89 H 96 04/08/21 21:05 38.5 C H 101 H 183/91 H 96 04/08/21 20:35 38.4 C H 118 H 193/102 H 96 04/08/21 20:11 116 H 29 H 95 04/08/21 20:05 38.4 C H 111 H 139/70 94 04/08/21 19:35 38.4 C H 111 H 170/85 H 95 04/08/21 19:05 38.3 C H 87 159/74 H 96 Laboratory Results 04/09/21 04/09/21 04/09/21 Range/Units 08:29 05:14 05:14 WBC 13.93 H (4.8-10.8) K/uL RBC 3.63 L (4.7-6.1) M/uL Hgb 10.9 L (14.0-18.0) g/dL POC Hgb (14.0-18.0) g/dl Hct 34.1 L (42-52) % POC Hct (42-52) % MCV 93.9 (80-100) fL MCH 30.0 (25-34) pg MCHC 32.0 (32-36) g/dL RDW Std Deviation 53.6 H (36.4-46.3) fL RDW Coeff of Sujit 15.4 H (11.5-14.5) % Plt Count 184 (130-400) K/uL MPV 9.9 (7.4-10.4) fL Immature Gran % (Auto) 0.6 % Neut % (Auto) 87.9 % Lymph % (Auto) 5.5 % [place] % (Auto) 5.8 % Eos % (Auto) 0.1 % Baso % (Auto) 0.1 % Neut # (Auto) 12.25 H (1.4-6.5) K/uL Lymph # (Auto) 0.76 L (1.2-3.4) K/uL [place] # (Auto) 0.81 H (0.11-0.59) K/uL Eos # (Auto) 0.02 (0-0.5) K/uL Baso # (Auto) 0.01 (0-0.2) K/uL Immature Gran # (Auto) 0.08 H (0.00-0.02) K/uL Dohle Bodies 1+ Sample Site POC pH (7.35-7.45) POC pCO2 (35-46) mmHg POC pO2 (80-95) mmHg POC HCO3 (19-24) iraida/L POC Total CO2 (24-31) mmol/L POC Base Excess (-9-1.8) iraida/L ABG pH (Temp Correct) (7.35-7.45) ABG pCO2 (Temp Corrct (35-46) mmHg POC ABG pO2 at Pt Temp POC ABG O2 Sat (90-95) % Sher Test O2 Delivery Device POC O2 Rate POC FiO2 % Tidal Volume PEEP POC Sodium (135-144) mmol/L Sodium 146 H (136-145) mmol/L POC Potassium (3.3-5.0) mmol/L Potassium 3.9 (3.5-5.1) mmol/L Chloride 116 H (98-107) mmol/L Carbon Dioxide 27 (21-32) mmol/L Anion Gap 3.0 (3-11) BUN 64 H (7-18) mg/dl Creatinine 1.34 (0.6-1.4) mg/dl Est Cr Clr Drug Dosing 74.3 ml/min Est GFR ( Amer) 66.3 ml/min Est GFR (Non-Af Amer) 57.2 ml/min BUN/Creatinine Ratio 47.8 H (10-20) Glucose 129 H (70-99) mg/dl POC Glucose 140 H (70-99) mg/dl Calcium 9.0 (8.5-10.1) mg/dl Phosphorus 3.3 (2.5-4.9) mg/dl Magnesium 2.9 H (1.8-2.4) mg/dl 04/09/21 04/09/21 04/08/21 Range/Units 04:07 04:05 23:30 WBC (4.8-10.8) K/uL RBC (4.7-6.1) M/uL Hgb (14.0-18.0) g/dL POC Hgb 10.9 L (14.0-18.0) g/dl Hct (42-52) % POC Hct 32 L (42-52) % MCV (80-100) fL MCH (25-34) pg MCHC (32-36) g/dL RDW Std Deviation (36.4-46.3) fL RDW Coeff of Sujit (11.5-14.5) % Plt Count (130-400) K/uL MPV (7.4-10.4) fL Immature Gran % (Auto) % Neut % (Auto) % Lymph % (Auto) % [place] % (Auto) % Eos % (Auto) % Baso % (Auto) % Neut # (Auto) (1.4-6.5) K/uL Lymph # (Auto) (1.2-3.4) K/uL [place] # (Auto) (0.11-0.59) K/uL Eos # (Auto) (0-0.5) K/uL Baso # (Auto) (0-0.2) K/uL Immature Gran # (Auto) (0.00-0.02) K/uL Dohle Bodies Sample Site R Radial POC pH 7.37 (7.35-7.45) POC pCO2 48 H (35-46) mmHg POC pO2 85 (80-95) mmHg POC HCO3 28 H (19-24) iraida/L POC Total CO2 29 (24-31) mmol/L POC Base Excess 2.0 H (-9-1.8) ir[place]ida/L ABG pH (Temp Correct) 7.363 (7.35-7.45) ABG pCO2 (Temp Corrct 49 H (35-46) mmHg POC ABG pO2 at Pt Temp 88 POC ABG O2 Sat 96.0 H (90-95) % Sher Test Pass O2 Delivery Device Ventilator POC O2 Rate 26 POC FiO2 60 % Tidal Volume 520 PEEP 10 POC Sodium 149 H (135-144) mmol/L Sodium (136-145) mmol/L POC Potassium 3.9 (3.3-5.0) mmol/L Potassium (3.5-5.1) mmol/L Chloride (98-107) mmol/L Carbon Dioxide (21-32) mmol/L Anion Gap (3-11) BUN (7-18) mg/dl Creatinine (0.6-1.4) mg/dl Est Cr Clr Drug Dosing ml/min Est GFR ( Amer) ml/min Est GFR (Non-Af Amer) ml/min BUN/Creatinine Ratio (10-20) Glucose (70-99) mg/dl POC Glucose 115 H 170 H (70-99) mg/dl Calcium (8.5-10.1) mg/dl Phosphorus (2.5-4.9) mg/dl Magnesium (1.8-2.4) mg/dl 04/08/21 04/08/21 04/08/21 Range/Units 20:34 16:21 12:31 WBC (4.8-10.8) K/uL RBC (4.7-6.1) M/uL Hgb (14.0-18.0) g/dL POC Hgb (14.0-18.0) g/dl Hct (42-52) % POC Hct (42-52) % MCV (80-100) fL MCH (25-34) pg MCHC (32-36) g/dL RDW Std Deviation (36.4-46.3) fL RDW Coeff of Sujit (11.5-14.5) % Plt Count (130-400) K/uL MPV (7.4-10.4) fL Immature Gran % (Auto) % Neut % (Auto) % Lymph % (Auto) % [place] % (Auto) % Eos % (Auto) % Baso % (Auto) % Neut # (Auto) (1.4-6.5) K/uL Lymph # (Auto) (1.2-3.4) K/uL [place] # (Auto) (0.11-0.59) K/uL Eos # (Auto) (0-0.5) K/uL Baso # (Auto) (0-0.2) K/uL Immature Gran # (Auto) (0.00-0.02) K/uL Dohle Bodies Sample Site POC pH (7.35-7.45) POC pCO2 (35-46) mmHg POC pO2 (80-95) mmHg POC HCO3 (19-24) iraida/L POC Total CO2 (24-31) mmol/L POC Base Excess (-9-1.8) [place]/L ABG pH (Temp Correct) (7.35-7.45) ABG pCO2 (Temp Corrct (35-46) mmHg POC ABG pO2 at Pt Temp POC ABG O2 Sat (90-95) % Sher Test O2 Delivery Device POC O2 Rate POC FiO2 % Tidal Volume PEEP POC Sodium (135-144) mmol/L Sodium (136-145) mmol/L POC Potassium (3.3-5.0) mmol/L Potassium (3.5-5.1) mmol/L Chloride (98-107) mmol/L Carbon Dioxide (21-32) mmol/L Anion Gap (3-11) BUN (7-18) mg/dl Creatinine (0.6-1.4) mg/dl Est Cr Clr Drug Dosing ml/min Est GFR ( Amer) ml/min Est GFR (Non-Af Amer) ml/min BUN/Creatinine Ratio (10-20) Glucose (70-99) mg/dl POC Glucose 174 H 128 H 183 H (70-99) mg/dl Calcium (8.5-10.1) mg/dl Phosphorus (2.5-4.9) mg/dl Magnesium (1.8-2.4) mg/dl Critical Care Time I have personally spent 95 minutes of critical care time in the direct management of this patient. This is a life/limb threatening event. This includes time spent evaluating patient, direct bedside care, chart review, placing orders, interpretation of diagnostic studies, discussion with consultants, patient, and/or family members regarding treatment decisions, as well as other required patient management activities. This time is exclusive of all separately billable procedures, and teaching time and separate from and in addition to any other critical care service time. Resident Activity Tracking Resident Involvement: Resident Care Provided Care Provided: [facility]
[2021-04-09] MEDS ORDERED: VANCOMYCIN CONSULT ACTIVE PRN (08:47)
[2021-04-09] MEDS ORDERED: VANCOMYCIN HCL 1,750 MG in SODIUM CHLORIDE 0.9% 500 ML IV SCH (09:00)
[2021-04-09] MEDS ORDERED: VECURONIUM BROMIDE 10 MG VIAL IV ONE (09:00)
--- NOTE | 2021-04-09 09:10 | Billing Data ---
Date of Service April 09, 2021 Coding Level of Care Code Critical Care 1st - mins
[2021-04-09] MEDS ORDERED: VANCOMYCIN HCL 2,750 MG in SODIUM CHLORIDE 0.9% 500 ML IV STA (09:22)
[2021-04-09] MEDS: levoFLOXacin/D5W 750 MG/150 ML BAG IV SCH (10:17)
[2021-04-09] MEDS: ENOXAPARIN INJ 120 MG/0.8 ML SYR SQ SCH ×2 (10:30→21:22)
[2021-04-09] MEDS: GABAPENTIN 250 MG/5 ML 470 ML BTL PO SCH (10:30)
[2021-04-09] MEDS: LANSOPRAZOLE 30 MG SOLTAB OG SCH ×2 (10:30→23:15)
[2021-04-09] MEDS: METOPROLOL TARTRATE 25 MG TAB PO SCH (10:31)
[2021-04-09] MEDS: SENNOSIDES 8.8 MG/5 ML UDC PO SCH ×2 (10:31→23:15)
[2021-04-09] MEDS: OLANZapine 5 MG TABLET PO SCH (10:31)
[2021-04-09] MEDS: fentaNYL citrate 2,500 MCG/250 ML BAG IV SCH ×2 (10:39→23:26)
--- NOTE | 2021-04-09 10:52 | Hospitalist Progress Note ---
Date of Service April 09, 2021 Assessment & Plan (1) Acute respiratory failure with hypoxia: Plan: due to COVID 19 pneumonia, bilateral infiltrates on CXR Was requiring prone positioning and BiPAP while awake, but then weaned down to wall high flow nasal cannula at 11-15 L on 03/23 However, on 03/24 worsened again was placed back on Vapotherm high flow nasal cannula On 03/25, requiring higher amounts of oxygen at 40 L and up to 80 % FiO2 to maintain pulse ox 90-91% On 03/26 switched to Ventilator HFNC at 60L, 100% FiO2 to keep POx>88%---> continued to decompensate on the morning of 03/27 and was intubated and proned He was not a candidate for ECMO Previously had pneumomediastinum which is now resolved Status post tocilizumab on 03/21 CRP trended downward Completed a course of high-dose dexamethasone initially with 10 mg daily and then on 03/28, increased to 20 mg daily x5 days, then 10 mg daily x5 days IV Lasix daily to keep in a negative fluid balance, was given along with albumin today Ventilator management as per detention worker-remains on AC, PEEP of 8, FiO2 80% Has failed multiple SBTs Now status post tracheostomy on 04/05 Continue to wean off ventilator as able to Chest x-ray still with significant bilateral infiltrates, off Precedex and all sedation Fentanyl only as needed Zyprexa 5 mg daily Having trouble waking up and moving limbs-getting MRIs of C/T/L-spine Continues to have fevers as below which is likely contributing to his encephalop athy (2) Fever: Plan: With sepsis Fevers started on 04/02, then resolved UA is clean on 04/02 CXR with persistent infiltrates blood cultures - no growth from 04/02, but now blood cultures positive on 04/09 for gram-positive cocci in clusters in 1/2 sets Sputum culture from 04/02 growing group G beta Streptococcus which has been adequately treated with no improvement in fever procalcitonin elevated at 1.7 Continues with recurrent fevers since 04/05-acute sinusitis/otitis media, VAP, line infection, bacteremia, drug fever all possibilities-now with blood cultures turning positive although still could be contaminant. Lines have been removed and replaced with peripheral IVs -blood cultures repeated on 04/08-follow final ID and sensitivities Dopplers of lower extremities negative for DVT MRI brain with sinusitis and mastoid effusions-could be from acute sinusitis MRSA swab remains negative WBC count jumped up to 23 and now down to 13 and stable Previously on Zosyn but was discontinued on 04/06 -Started cefepime and vancomycin on 04/06 for broad-spectrum coverage x1 dose -changed to Levaquin and Flagyl on 04/07-continues on these -Added vancomycin again on 04/09 for bacteremia -Follow CBC in the morning and repeat blood cultures again on 04/09 -Check CT chest/abdomen/pelvis for further source of infection -Checking MRIs of the spine for epidural abscess (3) SVT (supraventricular tachycardia): Plan: Had SVT to the 200s on the evening of 04/07 with associated hypotension requiring esmolol, amiodarone, adenosine x3, synchronized cardioversion x5 Also had further atrial fibrillation on 04/07 Now back in normal sinus rhythm and remains there Restarted metoprolol per NG tube Now off esmolol drip Continue amiodarone drip Replace electrolytes as needed Now on therapeutic Lovenox due to paroxysmal atrial fibrillation (4) Pneumonia due to COVID-19 virus: Plan: Symptom onset: approximately March 09, says he just got dyspnea and cough a few days prior to admission-became really short of breath on 03/20 so he came to the ED bilateral infiltrates on CXR, CRP 18 and then decreased after receiving Tocilizumab and dexamethasone Completed course of dexamethasone Completed 5-day course of Rocephin/Zithromax Was too far along in course of illness to give Remdesivir, no benefit Received Tocilizumab on 03/21 CTA chest: no pulmonary embolism, just shows diffuse infiltrates initially CXR still with bilateral infiltrates Sputum culture with group C beta strep as above-on antibiotics still requiring mechanical ventilation, now status post tracheostomy (5) Transaminitis: Plan: Persists, likely secondary to COVID-19 infection, but could be medication side effect Improving (6) Bradycardia: Plan: with sinus terry initially while on BIPAP Since that time, was in sinus tachycardia But also had atrial fibrillation briefly on the night of 04/05 and SVT on the e vening of 04/07 On afternoon of 04/07 had a couple 4-second pauses after starting p.o. metoprolol which was then held Restarted metoprolol and no further pauses (7) Hypotension: Plan: Has intermittently required vasopressors especially with SVT and rapid atrial fibrillation Now resolved, off vasopressors Received IV Lasix and albumin intermittently Now hypertensive (8) Pneumomediastinum: Plan: Now resolved (9) ROSARIO (acute kidney injury): Plan: -Early in the course, now resolved Making urine, Rogers catheter in place Lasix PRN to keep negative fluid balance (10) Elevated troponin: Plan: Troponin elevated at 0.13/0.1/0.09 Could be myocardial demand ischemia given ongoing SIRS/sepsis, although ECG with ST depression and T wave inversions in lateral leads which is not changed from 3 days prior Doubt acute coronary syndrome (11) Hypokalemia: Plan: Resolved with potassium replacement (12) BPH loc w urin obs/LUTS: Plan: Rogers catheter in place Plan: DVT prophylaxis: therapeutic Lovenox, SCDs Disposition: Continued stay in ICU, very guarded prognosis CODE STATUS: conditional code with no compressions Admission and Anticipated Discharge Date Admission Date: March 20, 2021 Subjective Patient remains minimally responsive as per my discussion with ICU team. He has received a couple doses of Versed through the night. His fevers are finally trending downward. He was sent for CT of the chest/abdomen/pelvis and MRI of the cervical/thoracic/lumbar spine this afternoon into the evening to look for a source of infection Blood cultures turned positive and 1/2 sets for gram-positive cocci in clusters Review of Systems Review of Systems: Unobtainable due to cognitive status Physical Exam Constitutional: WD/WN, vitals as above + ill appearing and + mechanically ventilated Results & Data Results & Data ([facility]) Vital Signs (Past 12 Hours) Vital Signs Temp Pulse Resp BP Pulse Ox 04/09/21 07:00 120 H 04/09/21 06:05 37.7 C H 94 H 147/82 H 92 04/09/21 05:05 37.7 C H 83 183/92 H 96 04/09/21 04:17 95 H 93 04/09/21 04:05 37.6 C H 88 157/89 H 94 04/09/21 03:05 37.9 C H 84 173/81 H 95 04/09/21 03:00 85 30 H 95 04/09/21 02:30 37.9 C H 98 H 100 04/09/21 02:08 37.9 C H 72 97 04/09/21 01:05 37.9 C H 82 130/65 95 04/09/21 00:05 38.1 C H 89 136/66 94 04/08/21 23:06 105 H 29 H 95 04/08/21 23:05 38.3 C H 109 H 148/88 H 95 04/08/21 23:00 95 H Laboratory Results 04/09/21 04/09/21 04/09/21 Range/Units 15:12 11:59 08:29 WBC (4.8-10.8) K/uL RBC (4.7-6.1) M/uL Hgb (14.0-18.0) g/dL POC Hgb (14.0-18.0) g/dl Hct (42-52) % POC Hct (42-52) % MCV (80-100) fL MCH (25-34) pg MCHC (32-36) g/dL RDW Std Deviation (36.4-46.3) fL RDW Coeff of Sujit (11.5-14.5) % Plt Count (130-400) K/uL MPV (7.4-10.4) fL Immature Gran % (Auto) % Neut % (Auto) % Lymph % (Auto) % Mckean % (Auto) % Eos % (Auto) % Baso % (Auto) % Neut # (Auto) (1.4-6.5) K/uL Lymph # (Auto) (1.2-3.4) K/uL Mckean # (Auto) (0.11-0.59) K/uL Eos # (Auto) (0-0.5) K/uL Baso # (Auto) (0-0.2) K/uL Immature Gran # (Auto) (0.00-0.02) K/uL Dohle Bodies Sample Site POC pH (7.35-7.45) POC pCO2 (35-46) mmHg POC pO2 (80-95) mmHg POC HCO3 (19-24) iraida/L POC Total CO2 (24-31) mmol/L POC Base Excess (-9-1.8) iraida/L ABG pH (Temp Correct) (7.35-7.45) ABG pCO2 (Temp Corrct (35-46) mmHg POC ABG pO2 at Pt Temp POC ABG O2 Sat (90-95) % Sher Test O2 Delivery Device POC O2 Rate POC FiO2 % Tidal Volume PEEP POC Sodium (135-144) mmol/L Sodium (136-145) mmol/L POC Potassium (3.3-5.0) mmol/L Potassium (3.5-5.1) mmol/L Chloride (98-107) mmol/L Carbon Dioxide (21-32) mmol/L Anion Gap (3-11) BUN (7-18) mg/dl Creatinine (0.6-1.4) mg/dl Est Cr Clr Drug Dosing ml/min Est GFR ( Amer) ml/min Est GFR (Non-Af Amer) ml/min BUN/Creatinine Ratio (10-20) Glucose (70-99) mg/dl POC Glucose 156 H 182 H 140 H (70-99) mg/dl Calcium (8.5-10.1) mg/dl Phosphorus (2.5-4.9) mg/dl Magnesium (1.8-2.4) mg/dl 04/09/21 04/09/21 04/09/21 Range/Units 05:14 05:14 04:07 WBC 13.93 H (4.8-10.8) K/uL RBC 3.63 L (4.7-6.1) M/uL Hgb 10.9 L (14.0-18.0) g/dL POC Hgb 10.9 L (14.0-18.0) g/dl Hct 34.1 L (42-52) % POC Hct 32 L (42-52) % MCV 93.9 (80-100) fL MCH 30.0 (25-34) pg MCHC 32.0 (32-36) g/dL RDW Std Deviation 53.6 H (36.4-46.3) fL RDW Coeff of Sujit 15.4 H (11.5-14.5) % Plt Count 184 (130-400) K/uL MPV 9.9 (7.4-10.4) fL Immature Gran % (Auto) 0.6 % Neut % (Auto) 87.9 % Lymph % (Auto) 5.5 % Mckean % (Auto) 5.8 % Eos % (Auto) 0.1 % Baso % (Auto) 0.1 % Neut # (Auto) 12.25 H (1.4-6.5) K/uL Lymph # (Auto) 0.76 L (1.2-3.4) K/uL Mckean # (Auto) 0.81 H (0.11-0.59) K/uL Eos # (Auto) 0.02 (0-0.5) K/uL Baso # (Auto) 0.01 (0-0.2) K/uL Immature Gran # (Auto) 0.08 H (0.00-0.02) K/uL Dohle Bodies 1+ Sample Site R Radial POC pH 7.37 (7.35-7.45) POC pCO2 48 H (35-46) mmHg POC pO2 85 (80-95) mmHg POC HCO3 28 H (19-24) iraida/L POC Total CO2 29 (24-31) mmol/L POC Base Excess 2.0 H (-9-1.8) iraida/L ABG pH (Temp Correct) 7.363 (7.35-7.45) ABG pCO2 (Temp Corrct 49 H (35-46) mmHg POC ABG pO2 at Pt Temp 88 POC ABG O2 Sat 96.0 H (90-95) % Sher Test Pass O2 Delivery Device Ventilator POC O2 Rate 26 POC FiO2 60 % Tidal Volume 520 PEEP 10 POC Sodium 149 H (135-144) mmol/L Sodium 146 H (136-145) mmol/L POC Potassium 3.9 (3.3-5.0) mmol/L Potassium 3.9 (3.5-5.1) mmol/L Chloride 116 H (98-107) mmol/L Carbon Dioxide 27 (21-32) mmol/L Anion Gap 3.0 (3-11) BUN 64 H (7-18) mg/dl Creatinine 1.34 (0.6-1.4) mg/dl Est Cr Clr Drug Dosing 74.3 ml/min Est GFR ( Amer) 66.3 ml/min Est GFR (Non-Af Amer) 57.2 ml/min BUN/Creatinine Ratio 47.8 H (10-20) Glucose 129 H (70-99) mg/dl POC Glucose (70-99) mg/dl Calcium 9.0 (8.5-10.1) mg/dl Phosphorus 3.3 (2.5-4.9) mg/dl Magnesium 2.9 H (1.8-2.4) mg/dl 04/09/21 04/08/21 Range/Units 04:05 23:30 WBC (4.8-10.8) K/uL RBC (4.7-6.1) M/uL Hgb (14.0-18.0) g/dL POC Hgb (14.0-18.0) g/dl Hct (42-52) % POC Hct (42-52) % MCV (80-100) fL MCH (25-34) pg MCHC (32-36) g/dL RDW Std Deviation (36.4-46.3) fL RDW Coeff of Sujit (11.5-14.5) % Plt Count (130-400) K/uL MPV (7.4-10.4) fL Immature Gran % (Auto) % Neut % (Auto) % Lymph % (Auto) % Mckean % (Auto) % Eos % (Auto) % Baso % (Auto) % Neut # (Auto) (1.4-6.5) K/uL Lymph # (Auto) (1.2-3.4) K/uL Mckean # (Auto) (0.11-0.59) K/uL Eos # (Auto) (0-0.5) K/uL Baso # (Auto) (0-0.2) K/uL Immature Gran # (Auto) (0.00-0.02) K/uL Dohle Bodies Sample Site POC pH (7.35-7.45) POC pCO2 (35-46) mmHg POC pO2 (80-95) mmHg POC HCO3 (19-24) iraida/L POC Total CO2 (24-31) mmol/L POC Base Excess (-9-1.8) iraida/L ABG pH (Temp Correct) (7.35-7.45) ABG pCO2 (Temp Corrct (35-46) mmHg POC ABG pO2 at Pt Temp POC ABG O2 Sat (90-95) % Sher Test O2 Delivery Device POC O2 Rate POC FiO2 % Tidal Volume PEEP POC Sodium (135-144) mmol/L Sodium (136-145) mmol/L POC Potassium (3.3-5.0) mmol/L Potassium (3.5-5.1) mmol/L Chloride (98-107) mmol/L Carbon Dioxide (21-32) mmol/L Anion Gap (3-11) BUN (7-18) mg/dl Creatinine (0.6-1.4) mg/dl Est Cr Clr Drug Dosing ml/min Est GFR ( Amer) ml/min Est GFR (Non-Af Amer) ml/min BUN/Creatinine Ratio (10-20) Glucose (70-99) mg/dl POC Glucose 115 H 170 H (70-99) mg/dl Calcium (8.5-10.1) mg/dl Phosphorus (2.5-4.9) mg/dl Magnesium (1.8-2.4) mg/dl PG Care Time/CCT Total # of Minutes Spent Total Time Spent with Patient: Total time spent is greater than 50% in coordination of care (as documented) at patient's floor/unit and/or counseling patient: Coding Level of Care Code 96898 Subseq Hosp Care Lvl 2 Diagnoses Acute respiratory failure with hypoxia J96.01 Fever R50.9 SVT (supraventricular tachycardia) I47.1 Pneumonia due to COVID-19 virus U07.1; J12.82 Transaminitis R74.01 Bradycardia R00.1 Hypotension I95.9 Pneumomediastinum J98.2 ROSARIO (acute kidney injury) N17.9 Elevated troponin R77.8 Hypokalemia E87.6 BPH loc w urin obs/LUTS N40.1
[2021-04-09] MEDS ORDERED: BUMETANIDE 1 MG in SYRINGE 0 ML IV ONE (11:11)
--- NOTE | 2021-04-09 11:37 | XRay Report ---
XR chest 1V portable CLINICAL HISTORY: Resp failure COMPARISON STUDY: April 08, 2021 FINDINGS: No pneumothorax. No pleural effusion. Lung volumes are decreased. Interval worsening of patchy airspace opacities which are seen bilaterall y. Interval linear density within the right midlung which could represent fluid within right minor fi ssure. Cardiomediastinal silhouette is stable and partially obscured by surrounding opacities. Vasculature is obscured.. Osseous structures: unremarkable , vertebral bodies are not well seen. Stable position of tracheostomy tube. Interval removal of the right subclavian line. Interval reposit ioning of feeding tube with tip above level of hemidiaphragm. Advancement more than 16 cm forward is recommended. IMPRESSION: 1. Interval worsening of multifocal bilateral airspace opacities which could represent infiltrative process/pneumonia. 2. Tip of feeding tube is seen above level of hemidiaphragm. Advancement forward more then 16 cm is recommended. Report will be sent to patient's unit. 3. The rest of support apparatus as above. ACT 112: Negative or not required by law. The above report was generated using voice recognition software. It may contain grammatical, syntax o r spelling errors. Electronically signed by: Smiley Eubanks DO 04/09/2021 11:36 AM
[2021-04-09] MEDS: METOPROLOL TARTRATE 50 MG TAB PO SCH ×2 (11:42→23:15)
[2021-04-09] MEDS ORDERED: MIDAZOLAM HCL 1 MG/ML 2ML VIAL IV SCH (12:45)
--- NOTE | 2021-04-09 13:47 | Pharmacy Report ---
Pharmacy [facility] Short Note - Date of Service April 09, 2021 - Assessment & Plan Assessment 61 year old M receiving Vancomycin for treatment of bacteremia. Pertinent microbiologic data includes: negative MRSA Nasal Swab, blood culture growing gram positive cocci clusters. Repeat blood cultures drawn today Day # 1 of antimicrobial therapy. Levaquin and Flagyl ordered in addition Plan Vancomycin * Loading dose of 2750mg IV x 1 * Maintenance dose of 1500mg IV q12h * Goal trough level is 15-20 * Will order trough for 04/10 at 2130 Pharmacy will continue to follow and will adjust dose/frequency as necessary. Thank you.
[2021-04-09] MEDS ORDERED: VECURONIUM BROMIDE 10 MG VIAL IV SCH (15:00)
[2021-04-09] MEDS: MIDAZOLAM HCL 1 MG/ML 2ML VIAL IV SCH ×4 (17:10→20:30)
[2021-04-09] MEDS ORDERED: GADOBUTROL 65ML VIAL IV ONE (19:29)
[2021-04-09] MEDS ORDERED: OPTIRAY 320 100ml IV ONE (19:31)
--- NOTE | 2021-04-09 20:24 | Magnetic Resonance Report ---
CERVICAL SPINE MRI WITH AND WITHOUT CONTRAST HISTORY: COVID, fever unknown origin, not moving extremities. Assess for epidural abscess. TECHNIQUE: Multiplanar multisequence MRI of the cervical spine was performed both before and after th e use of intravenous contrast. COMPARISON STUDY: Brain MRI 04/07/2021. FINDINGS: There again noted large bilateral mastoid effusions, unchanged. There is a partially visual ized right pleural effusion. Mild reversal of the normal lordotic curvature within the lower cervical spine. Trace prevertebral edema within the upper to mid cervical spine. Moderate disc space narrowin g at C5-C6 and C6-C7. No abnormal signal intensity or enhancement within the disc spaces to suggest a discitis/osteomyelitis. No epidural fluid collections identified to suggest an abscess. No fracture or subluxation. C2-C3: No significant central canal or neural foraminal narrowing. C3-C4: No significant central canal or neural foraminal narrowing. C4-C5: No significant central canal or neural foraminal narrowing. C5-C6: Small broad-based posterior disc osteophyte complex resulting in partial effacement of the ant erior thecal sac consistent with mild central canal narrowing. No significant neural foraminal narrow ing. C6-C7: Small broad-based posterior disc osteophyte complex without significant central canal or neura l foraminal narrowing. C7-T1: No significant central canal or neural foraminal narrowing. IMPRESSION: 1. No epidural abscess identified. 2. Degenerative changes at C5-C6 and C6-C7 as described above. 3. Large bilateral mastoid effusions, unchanged. 4. Trace prevertebral edema within the upper to mid cervical spine. Is nonspecific but could be due t o prior intubation. 5. Partially visualized right pleural effusion. 6. No evidence for discitis/osteomyelitis. ACT 112: Negative or not required by law. Electronically signed by: Marco A Yee M.D. 04/09/2021 8:23 PM
--- NOTE | 2021-04-09 20:30 | Magnetic Resonance Report ---
THORACIC SPINE MRI WITH AND WITHOUT CONTRAST HISTORY: COVID, fever unknown origin, not moving extremities. Assess for epidural abscess. TECHNIQUE: Multiplanar multisequence MRI of the thoracic spine was performed both before and after th e intravenous administration of contrast. COMPARISON: None. FINDINGS: Levoscoliosis of the thoracic spine. Small right pleural effusion and partially visualized right lung airspace opacities. No fracture or subluxation within the thoracic spine. Disc spaces are preserved. Normal marrow signal intensity seen throughout the visualized osseous structures. No evidence for di scitis/osteomyelitis. The thoracic spinal cord demonstrates a normal signal intensity. No epidural or paraspinal fluid collections to suggest an abscess. No abnormal enhancement within the thoracic spin e. No significant central canal or neural foraminal narrowing. IMPRESSION: 1. No epidural or paraspinal abscess identified. 2. No significant central canal or neural foraminal narrowing. 3. No evidence for discitis/osteomyelitis. 3. Levoscoliosis of the thoracic spine. ACT 112: Negative or not required by law. Electronically signed by: Marco A Yee M.D. 04/09/2021 8:29 PM
--- NOTE | 2021-04-09 20:40 | Magnetic Resonance Report ---
LUMBAR SPINE MRI WITH AND WITHOUT CONTRAST HISTORY: COVID, fever unknown origin, not moving extremities. Assess for epidural abscess. TECHNIQUE: Multiplanar multisequence MRI of the lumbar spine was performed both before and after the intravenous administration of contrast. COMPARISON: None. FINDINGS: For the purpose of the report the L5-S1 disc space will be located on axial image 27 of 30. The conus terminus at the L1 level. No fracture or subluxation within the lumbar spine. Mild disc therese iccation at L1-L2, L4-L5, and L5-S1. No evidence for discitis/osteomyelitis. Trace fluid within the L 4-5 facets is likely due to the long-standing degenerative change. There is moderate facet osteoarthr itis within the lower lumbar spine. No epidural fluid collections to suggest an abscess. There is pat marcia enhancement 1 edema seen throughout the paraspinal muscles. No loculated fluid collections to sug gest an abscess at this time. There is a right-sided L5 pars defect. L1-L2: Small broad-based posterior disc bulge without significant central canal or neural foraminal n arrowing. L2-L3: No significant central canal or neural foraminal narrowing. L3-L4: No significant central canal or neural foraminal narrowing. L4-L5: No significant central canal or neural foraminal narrowing. L5-S1: There appears to be a tiny focal central disc protrusion without significant central canal or neural foraminal narrowing. IMPRESSION: 1. Patchy enhancement throughout the paraspinal muscles within the lumbar region. This is consistent with a nonspecific myositis and could be due to an infectious process. 2. No epidural or paraspinal abscess identified. 3. No evidence for discitis/osteomyelitis. 4. No significant central canal or neural foraminal narrowing. ACT 112: Negative or not required by law. Electronically signed by: Marco A Yee M.D. 04/09/2021 8:39 PM
--- NOTE | 2021-04-09 20:56 | CT Scan Report ---
CHEST CT WITH CONTRAST, ABDOMEN AND PELVIS CT WITH INTRAVENOUS CONTRAST CT DOSE: 2994.38 mGy.cm HISTORY: COVID, bacteremia TECHNIQUE: Multiaxial CT images of the chest, abdomen, and pelvis were performed following the intrav enous administration of contrast. A dose lowering technique was utilized adhering to the principles of ALARA. COMPARISON: Chest CT 07/25/2013. Abdomen and pelvis CT 06/14/2017. FINDINGS: Chest CT: A tracheostomy tube appears in good position. There is a subcentimeter right thyroid nodule . This does not meet CT criteria for follow-up. There is respiratory motion artifact resulting in sub optimal evaluation of the chest. The heart is borderline enlarged. Normal caliber thoracic aorta with no evidence for dissection. The main pulmonary arteries are likely patent. Nondiagnostic evaluation of the distal pulmonary arteries due to the motion artifact. A single prominent upper right paratrach eal lymph node. This is likely reactive. Small right pleural effusion. No pericardial effusion. No fr actures within the visualized osseous structures. Bilateral groundglass and consolidative airspace op acities most pronounced within the right lung consistent with a multifocal pneumonia. There is a 3.5 cm focal air-fluid level within the base the right lower lobe posteriorly best seen on image 190. Thi s is consistent with a lung abscess. There are few additional blebs/pneumatoceles seen within the sharlene ateral lower lobes, right greater than left. Abdomen/pelvis CT: No pneumoperitoneum. No pneumatosis. No fractures within the visualized osseous st ructures. Suboptimal evaluation of the abdomen and pelvis due to the motion artifact. Prior cholecyst ectomy. The liver, spleen, and adrenal glands are unremarkable. No hydronephrosis. There is multifoca l bilateral cortical renal scarring. Stable hypodense lesions within the kidneys favor cysts. The elizabeth n portal vein appears patent. Mild prominence of the central intrahepatic bile ducts is likely due to the patient's postcholecystectomy state. No retroperitoneal lymphadenopathy. Normal caliber abdomina l aorta. There is edema surrounding the pancreatic head and extending into the right/central mesenter y. There is heterogeneous enhancement within the pancreatic head. This area is partially obscured by the motion artifact but likely represents a necrotizing pancreatitis. The bladder is decompressed by a Rogers catheter. Fluid-filled nondilated large and small bowel. No bowel wall thickening or obstruct ion. Normal appendix. Colonic diverticulosis. IMPRESSION: 1. Bilateral airspace opacities, right greater than left, consistent with a multifocal pneumonia. 2. Small right pleural effusion. 3. A 3.5 cm focal air-fluid level within the base of the right lower lobe posteriorly consistent with a lung abscess. 4. Edema surrounding the pancreatic head which extends into the right/central mesentery. There is als o heterogeneous enhancement within the pancreatic head. Therefore, this favors a necrotizing pancreat itis. Recommend correlation with pancreatic enzymes. 5. Fluid-filled large and small bowel. This may represent a gastroenteritis/diarrheal illness. No diane dence for bowel obstruction. 6. Additional findings as described above. 7. These findings were called/faxed to the referring physician following dictation. ACT 112: Negative or not required by law. Electronically signed by: Marco A Yee M.D. 04/09/2021 8:55 PM
[2021-04-09] MEDS ORDERED: CASPOFUNGIN 70 MG in SODIUM CHLORIDE 0.9% 250 ML IV ONE (22:30)
[2021-04-09] MEDS: VANCOMYCIN HCL 1,500 MG in SODIUM CHLORIDE 0.9% 500 ML IV SCH (22:57)
--- NOTE | 2021-04-09 23:04 | Procedure Note ---
Procedure Note Date of Service April 09, 2021 Note Procedure Date: noted above Procedure: Thoracentesis of right lung Pre-procedure Diagnosis: Pleural effusion, lung abscess, Covid pneumonia Post-procedure Diagnosis: same as above Prior to Procedure: Informed Consent: The risks, benefits, indications, potential complications, and alternatives were explained to the patient's and informed consent obtained. Attending Staff: Bo Wall DO Resident/Physician Manager Paid: Not applicable Indications: The patient is a 61-year-old male patient with interval development of a lung abscess in the setting of Covid pneumonia requiring thoracentesis. The identity of the patient was confirmed and a bedside time out was performed. Description of Procedure: Patient positioned, the right posterior axillary line was prepped with chlorhexidine and draped in usual sterile fashion. Ultrasound guidance was used and appropriate fluid pocket was identified. 4 mL of 1% Lidocaine without epinephrine was used to anesthetize the area. A needle was introduced into the pleural space over the superior margin of the rib with care and fluid removed and sent for analysis. Total Fluid Removed: 30 ml Color of Fluid: Blood-tinged Sent for: Gram Stain, culture, cell count, glucose, protein, amylase Complications: None Estimated blood loss: Trace Images obtained are saved for permanent record Post procedure chest x-ray has been ordered and reviewed by me: No obvious pneumothorax noted Coding CPT Codes Pulmonary/Thoracic - Pulmonary and Thoracic: 57277 Thoracentesis w imaging ([id number]) [facility] [place]) Pulmonary/Thoracic Procedure 1: Pulmonary and Thoracic: 76993 Thoracentesis w imaging
[2021-04-09 23:34] LABS: Glucose Pleural Fluid 148 mg/dl
[2021-04-09 23:50] LABS: Amylase Pleural Fluid 29 U/L; LDH Pleural Fluid 929 U/L; Total Protein Pleural Fluid 3.2 g/dl
[2021-04-10 00:18] LABS: Appearance Pleural Fluid BLOODY; Basophils, Fluid 0 %; Color Pleural Fluid RED; Eosinophils, Fluid 0 %; Lymphocytes, Fluid 3 %; Mono,Macrophage,Mesothelial 8 %; Neutrophils, Fluid 89 %; RBC Pleural Fluid (A) 78000 /uL; Source Pleural Fluid RIGHT LUNG; WBC Pleural Fluid (A) 6937 /uL
[2021-04-10] MEDS: METOPROLOL TARTRATE 1 MG/ML VIAL IV SCH ×6 (00:19→20:07)
[2021-04-10] MEDS: INSULIN ASPART 100 UNITS/ML 3 ML PEN SC SCH ×6 (00:25→20:28)
[2021-04-10 00:45] LABS: Albumin Level 1.9 gm/dl (3.4-5.0); Bilirubin,Total 0.4 mg/dl (0.2-1)
[2021-04-10] MEDS ORDERED: MIDAZOLAM HCL 1 MG/ML 2ML VIAL IV STA ×4 (00:50→22:17)
[2021-04-10] MEDS ORDERED: METOPROLOL TARTRATE 1 MG/ML VIAL IV STA ×2 (00:50→01:52)
[2021-04-10] MEDS: ARTIFICIAL TEARS OP OINT 3.5 GM TUBE OP SCH ×6 (01:28→20:29)
[2021-04-10] MEDS: metroNIDAZOLE 500 MG/100 ML BAG IV SCH ×3 (01:30→18:06)
[2021-04-10] MEDS: AMIODARONE / D5W 360 MG/200 ML BAG IV SCH ×4 (01:30→19:59)
[2021-04-10 02:11] LABS: Basophils # (auto) 0.01 K/uL (0-0.2); Basophils % (auto) 0.1 %; Eosinophils # (auto) 0.01 K/uL (0-0.5); Eosinophils % (auto) 0.1 %; Hematocrit (blood only) 35.5 % (42-52); Hemoglobin 11.1 g/dL (14.0-18.0); Immature Granulocytes # (auto) 0.07 K/uL (0.00-0.02); Immature Granulocytes % (auto) 0.5 %; Lymphocytes # (auto) 0.71 K/uL (1.2-3.4); Lymphocytes % (auto) 4.6 %; Mean Corpuscular Hemoglobin 30.2 pg (25-34); Mean Corpuscular Hgb Conc 31.3 g/dL (32-36); Mean Corpuscular Volume 96.5 fL (80-100); Mean Platelet Volume 10.1 fL (7.4-10.4); Monocytes # (auto) 1.07 K/uL (0.11-0.59); Neutrophils # (auto) 13.48 K/uL (1.4-6.5); Neutrophils % (auto) 87.7 %; Platelet Count 237 K/uL (130-400); RDW Coefficient of Variation 15.8 % (11.5-14.5); RDW Standard Deviation 55.8 fL (36.4-46.3); Red Blood Count 3.68 M/uL (4.7-6.1); White Blood Count 15.35 K/uL (4.8-10.8)
[2021-04-10] MEDS ORDERED: STAT IV Infusion **Titration per Protocol STA (02:17)
[2021-04-10 02:21] LABS: INR 1.1 (0.9-1.1); Prothrombin Time 10.9 Seconds (9.0-12.0)
[2021-04-10 02:33] LABS: Albumin Level 1.9 gm/dl (3.4-5.0); Bilirubin Direct 0.2 mg/dl (0-0.2); Bilirubin,Total 0.4 mg/dl (0.2-1); Magnesium 2.7 mg/dl (1.8-2.4); Phosphorus 2.5 mg/dl (2.5-4.9); Total Protein 6.1 gm/dl (6.4-8.2)
[2021-04-10] MEDS: dilTIAZem HCL 125 MG in DEXTROSE 5% 100 ML IV SCH ×2 (02:36→20:02)
[2021-04-10] MEDS: MIDAZOLAM HCL 1 MG/ML 2ML VIAL IV SCH (02:37)
[2021-04-10 05:25] LABS: iSTAT Allen Test Pass; iSTAT Arterial Blood Gas HCO3 28 meg/L (19-24); iSTAT Arterial Blood Gas pCO2 51 mmHg (35-46); iSTAT Arterial Blood Gas pH 7.35 (7.35-7.45); iSTAT Arterial Blood Gas pO2 46 mmHg (80-95); iSTAT Carbon Dioxide 29 mmol/L (24-31); iSTAT FiO2 50 %; iSTAT Site R Radial
[2021-04-10 06:44] LABS: BUN Creatinine Ratio 48.7 (10-20); Calcium 8.8 mg/dl (8.5-10.1); Creatinine Clr Calc Pharmacy 78.8 ml/min; Est GFR (African American) 71.4 ml/min; Est GFR (Non-African American) 61.6 ml/min; Potassium 3.5 mmol/L (3.5-5.1)
--- NOTE | 2021-04-10 07:58 | Critical Care Progress Note ---
Date of Service April 10, 2021 Assessment & Plan (1) Acute respiratory failure with hypoxia: Plan: Reason Critically Ill: 61-year-old male with past medical history of hypertension admitted to the hospital for COVID-19 pneumonia and acute hypoxic respiratory failure, intubated 03/27/2021 PLAN: NEURO: Hypoactive delirium -Zyprexa: Increased from 5 to 10 mg on 04/10 -CT Head 04/02/21: Negative for any acute abnormality. -MRI 04/06/21: Acute paranasal sinusitis with large bilateral mastoid effusions. Otherwise largely unremarkable. - EEG to exclude nonconvulsive status RESPIRATORY: VDRF with acute hypoxic respiratory failure, secondary to multilobar COVID-19 pneumonia - COVID-19 PCR positive 03/16/2021, remains positive as of 04/07/21 - S/p Tocilizumab 03/21/2021 - Intubated 03/27/2021; tracheostomy performed 04/05/21 - Continue with lung protective ventilation - High PEEP, low tidal volume to keep Plateau < 30 with permissive hypercapnea if need be. ARDS net high-dose steroid protocol - Dexamethasone 20mg x5 days, 10mg x5 days -- completed on 04/06 - Per medication hx review, patient is on prednisone 20mg po daily; on further review, it appears that the prednisone is scheduled 20mg po daily prn for gout flares but last documentation states no recent gout flares and external med refill history does not show recent fill of prednisone. Therefore, no need to taper at this point. Will watch for signs of adrenal insufficiency. Kate as well as [facility] team where contacted on 03/28/2021, unfortunately he is not a candidate from either side. Pneumomediastinum--> resolved Lung abscess on CT 04/09 Right-sided pleural effusion -Status post thoracentesis 04/09; cultures pending CARDIOVASCULAR: Intermittent hypertension - Continue home amlodipine - Hydralazine 10mg IV q6h prn for SBP > 160 Intermittent hypotension: Resolved - likely sec to sedation - c/w vasopressor as needed to keep MAP>65 Paroxysmal atrial fibrillation with RVR: Currently normal sinus rhythm -Metoprolol 50mg po BID: Converted 5 mg IV every 4 hours -Diltiazem infusion -Wean to off Episode of SVT evening of 04/07, 04/09: Resolved Fluids/Renal: - Goal to remain net negative - Diuresis as needed ID: Sinusitis -Appropriate coverage with that for lung abscess Lung abscess -Levaquin day 4 -Flagyl day 4 -Vancomycin day 2 -Caspofungin day 2 - Nasal MRSA screen negative -Intermittently febrile - Leukocytosis - Sputum cultures with Group G Beta strep - BLE venous dopplers performed 04/06 and were negative Bacteremia - Repeat blood cultures 04/08 with 1 bottle growing gram + cocci in clusters: Suspect contaminant -Repeat blood cultures remain negative Line holiday 04/08 -MRI spine reviewed no evidence of epidural abscess - MRI cervical, thoracic, and lumbar w/ and w/o contrast ordered; results reviewed - CT chest, abd, pelvis w/ contrast ordered; results reviewed - As needed vecuronium and versed pinion and wheel truer during MRI/imaging studies GI/Nutrition: Transaminitis -resolved Elevated lipase: Resolved Necrotizing pancreatitis -Seen on CT scan I believe this had resolved as the patient's lipase levels are within normal limits -Hypertriglyceridemia: Improving -Off propofol Constipation, resolved - bowel movement overnight 04/06-04/07 after receiving lactulose, mineral oil, Senna, and methylnaltrexone Heme: Anemia secondary to bone marrow suppression of disease process Endocrine: ICU hyperglycemia protocol --Prophylaxis VTE: Lovenox full anticoagulation GI: Lansoprazole Lines: PIV, Rogers Diet: Restart tube feeds however will transition to impact Patient's Mrs. Emperatriz Neri [phone] (2) Pneumonia due to COVID-19 virus: Admission and Anticipated Discharge Date Admission Date: March 20, 2021 Supervising Physician Co-Signing Physician Notes Patient remains critically ill I have personally spent 55 minutes of critical care time in the direct management of this patient. This is a life/limb threatening event. This includes time spent evaluating patient, direct bedside care, chart review, placing orders, interpretation of diagnostic studies, discussion with consultants, patient, and/or family members regarding treatment decisions, as well as other required patient management activities. This time is exclusive of all separately billable procedures, and teaching time and separate from and in addition to any other critical care service time. Subjective Overnight patient had additional events of atrial fibrillation with rapid ventricular response. Was reported patient had a episode of hypoxia during MRI which responded to manual bagging. Physical Exam Physical Exam: General: Glascow Coma Scale: Eyes: 4 spontaneous, Verbal 1T, Motor 1, Total 6T Skin: Warm, dry, Head: Small area of skin breakdown on right face secondary to tube control device Ears, nose, mouth and throat: airway obscured by endotracheal tube Cardiovascular: Normal peripheral perfusion Respiratory: Coarse sounds bilaterally Gastrointestinal: Non distended Musculoskeletal: No deformity, trace edema Results & Data Results & Data ([facility]) Vital Signs (Past 12 Hours) Vital Signs Temp Pulse Resp BP Pulse Ox 04/10/21 05:26 69 26 H 95 04/10/21 02:45 37.9 C H 107 H 145/76 H 92 04/10/21 02:16 37.7 C H 120 H 152/111 H 91 04/10/21 01:36 37.5 C 153 H 174/110 H 91 04/10/21 01:27 122 H 200/114 H 04/10/21 01:15 37.4 C 146 H 155/106 H 91 04/10/21 00:45 37.2 C 128 H 182/113 H 92 04/10/21 00:38 122 H 26 H 91 04/10/21 00:12 37.0 C 160 H 138/104 H 91 04/09/21 23:45 37.1 C 96 H 187/88 H 93 04/09/21 23:12 37.2 C 109 H 20 204/114 H 95 04/09/21 23:00 122 H 04/09/21 22:45 37.2 C 109 H 23 209/111 H 97 04/09/21 22:15 37.3 C 82 23 189/89 H 96 04/09/21 21:45 37.5 C 101 H 27 H 170/93 H 99 04/09/21 21:15 95 H 26 H 141/71 H 96 04/09/21 21:09 90 26 H 97 04/09/21 20:33 119 H 30 H 90 Laboratory Results 04/10/21 04/10/21 04/10/21 Range/Units 05:56 04:50 04:44 WBC (4.8-10.8) K/uL RBC (4.7-6.1) M/uL Hgb (14.0-18.0) g/dL Hct (42-52) % MCV (80-100) fL MCH (25-34) pg MCHC (32-36) g/dL RDW Std Deviation (36.4-46.3) fL RDW Coeff of Sujit (11.5-14.5) % Plt Count (130-400) K/uL MPV (7.4-10.4) fL Immature Gran % (Auto) % Neut % (Auto) % Lymph % (Auto) % Mccone % (Auto) % Eos % (Auto) % Baso % (Auto) % Neut # (Auto) (1.4-6.5) K/uL Lymph # (Auto) (1.2-3.4) K/uL Mccone # (Auto) (0.11-0.59) K/uL Eos # (Auto) (0-0.5) K/uL Baso # (Auto) (0-0.2) K/uL Immature Gran # (Auto) (0.00-0.02) K/uL PT (9.0-12.0) Seconds INR (0.9-1.1) Sample Site R Radial POC pH 7.35 (7.35-7.45) POC pCO2 51 H (35-46) mmHg POC pO2 46 L (80-95) mmHg POC HCO3 28 H (19-24) iraida/L POC Total CO2 29 (24-31) mmol/L POC Base Excess 2.0 H (-9-1.8) iraida/L POC ABG O2 Sat 78.0 L (90-95) % Sher Test Pass O2 Delivery Device Ventilator POC O2 Rate 26 POC FiO2 50 % Tidal Volume 520 PEEP 8 Sodium 153 H (136-145) mmol/L Potassium 3.5 (3.5-5.1) mmol/L Chloride 121 H (98-107) mmol/L Carbon Dioxide 28 (21-32) mmol/L Anion Gap 4.0 (3-11) BUN 61 H (7-18) mg/dl Creatinine 1.26 (0.6-1.4) mg/dl Est Cr Clr Drug Dosing 78.8 ml/min Est GFR ( Amer) 71.4 ml/min Est GFR (Non-Af Amer) 61.6 ml/min BUN/Creatinine Ratio 48.7 H (10-20) Glucose 164 H (70-99) mg/dl POC Glucose 154 H (70-99) mg/dl Calcium 8.8 (8.5-10.1) mg/dl Ionized Calcium (1.12-1.32) mmol/L Phosphorus (2.5-4.9) mg/dl Magnesium (1.8-2.4) mg/dl Total Bilirubin (0.2-1) mg/dl Direct Bilirubin (0-0.2) mg/dl AST (15-37) U/L ALT (12-78) U/L Alkaline Phosphatase (45-117) U/L Lactate Dehydrogenase (87-241) U/L Total Protein (6.4-8.2) gm/dl Albumin (3.4-5.0) gm/dl Triglycerides (0-150) mg/dl Lipase (73-393) U/L Fluid Neutrophils % % Fluid Lymphocytes % % Fluid Eosinophils % % Fluid Basophils % % Fluid Meso/Macro/Mccone % % Fluid Comment Pleural Fluid Source Pleural Color Pleural Appearance Pleural WBC /uL Pleural RBC /uL Pleural Total Protein g/dl Pleural LDH U/L Pleural Glucose mg/dl Pleural Amylase U/L Beta-(1,3)-D-Glucan B-(1,3)-D-Glucan Intrp 04/10/21 04/10/21 04/10/21 Range/Units 02:03 02:03 02:03 WBC (4.8-10.8) K/uL RBC (4.7-6.1) M/uL Hgb (14.0-18.0) g/dL Hct (42-52) % MCV (80-100) fL MCH (25-34) pg MCHC (32-36) g/dL RDW Std Deviation (36.4-46.3) fL RDW Coeff of Sujit (11.5-14.5) % Plt Count (130-400) K/uL MPV (7.4-10.4) fL Immature Gran % (Auto) % Neut % (Auto) % Lymph % (Auto) % Mccone % (Auto) % Eos % (Auto) % Baso % (Auto) % Neut # (Auto) (1.4-6.5) K/uL Lymph # (Auto) (1.2-3.4) K/uL Mccone # (Auto) (0.11-0.59) K/uL Eos # (Auto) (0-0.5) K/uL Baso # (Auto) (0-0.2) K/uL Immature Gran # (Auto) (0.00-0.02) K/uL PT 10.9 (9.0-12.0) Seconds INR 1.1 (0.9-1.1) Sample Site POC pH (7.35-7.45) POC pCO2 (35-46) mmHg POC pO2 (80-95) mmHg POC HCO3 (19-24) iraida/L POC Total CO2 (24-31) mmol/L POC Base Excess (-9-1.8) iraida/L POC ABG O2 Sat (90-95) % Sher Test O2 Delivery Device POC O2 Rate POC FiO2 % Tidal Volume PEEP Sodium (136-145) mmol/L Potassium (3.5-5.1) mmol/L Chloride (98-107) mmol/L Carbon Dioxide (21-32) mmol/L Anion Gap (3-11) BUN (7-18) mg/dl Creatinine (0.6-1.4) mg/dl Est Cr Clr Drug Dosing ml/min Est GFR ( Amer) ml/min Est GFR (Non-Af Amer) ml/min BUN/Creatinine Ratio (10-20) Glucose (70-99) mg/dl POC Glucose (70-99) mg/dl Calcium (8.5-10.1) mg/dl Ionized Calcium 1.21 (1.12-1.32) mmol/L Phosphorus 2.5 (2.5-4.9) mg/dl Magnesium 2.7 H (1.8-2.4) mg/dl Total Bilirubin 0.4 (0.2-1) mg/dl Direct Bilirubin 0.2 (0-0.2) mg/dl AST 21 (15-37) U/L ALT 40 (12-78) U/L Alkaline Phosphatase 109 (45-117) U/L Lactate Dehydrogenase (87-241) U/L Total Protein 6.1 L (6.4-8.2) gm/dl Albumin 1.9 L (3.4-5.0) gm/dl Triglycerides 181 H (0-150) mg/dl Lipase 112 (73-393) U/L Fluid Neutrophils % % Fluid Lymphocytes % % Fluid Eosinophils % % Fluid Basophils % % Fluid Meso/Macro/Mccone % % Fluid Comment Pleural Fluid Source Pleural Color Pleural Appearance Pleural WBC /uL Pleural RBC /uL Pleural Total Protein g/dl Pleural LDH U/L Pleural Glucose mg/dl Pleural Amylase U/L Beta-(1,3)-D-Glucan B-(1,3)-D-Glucan Intrp 04/10/21 04/10/21 04/09/21 Range/Units 02:03 00:07 22:45 WBC 15.35 H (4.8-10.8) K/uL RBC 3.68 L (4.7-6.1) M/uL Hgb 11.1 L (14.0-18.0) g/dL Hct 35.5 L (42-52) % MCV 96.5 (80-100) fL MCH 30.2 (25-34) pg MCHC 31.3 L (32-36) g/dL RDW Std Deviation 55.8 H (36.4-46.3) fL RDW Coeff of Sujit 15.8 H (11.5-14.5) % Plt Count 237 (130-400) K/uL MPV 10.1 (7.4-10.4) fL Immature Gran % (Auto) 0.5 % Neut % (Auto) 87.7 % Lymph % (Auto) 4.6 % Mccone % (Auto) 7.0 % Eos % (Auto) 0.1 % Baso % (Auto) 0.1 % Neut # (Auto) 13.48 H (1.4-6.5) K/uL Lymph # (Auto) 0.71 L (1.2-3.4) K/uL Mccone # (Auto) 1.07 H (0.11-0.59) K/uL Eos # (Auto) 0.01 (0-0.5) K/uL Baso # (Auto) 0.01 (0-0.2) K/uL Immature Gran # (Auto) 0.07 H (0.00-0.02) K/uL PT (9.0-12.0) Seconds INR (0.9-1.1) Sample Site POC pH (7.35-7.45) POC pCO2 (35-46) mmHg POC pO2 (80-95) mmHg POC HCO3 (19-24) iraida/L POC Total CO2 (24-31) mmol/L POC Base Excess (-9-1.8) iraida/L POC ABG O2 Sat (90-95) % Sher Test O2 Delivery Device POC O2 Rate POC FiO2 % Tidal Volume PEEP Sodium (136-145) mmol/L Potassium (3.5-5.1) mmol/L Chloride (98-107) mmol/L Carbon Dioxide (21-32) mmol/L Anion Gap (3-11) BUN (7-18) mg/dl Creatinine (0.6-1.4) mg/dl Est Cr Clr Drug Dosing ml/min Est GFR ( Amer) ml/min Est GFR (Non-Af Amer) ml/min BUN/Creatinine Ratio (10-20) Glucose (70-99) mg/dl POC Glucose 140 H (70-99) mg/dl Calcium (8.5-10.1) mg/dl Ionized Calcium (1.12-1.32) mmol/L Phosphorus (2.5-4.9) mg/dl Magnesium (1.8-2.4) mg/dl Total Bilirubin (0.2-1) mg/dl Direct Bilirubin (0-0.2) mg/dl AST (15-37) U/L ALT (12-78) U/L Alkaline Phosphatase (45-117) U/L Lactate Dehydrogenase (87-241) U/L Total Protein (6.4-8.2) gm/dl Albumin (3.4-5.0) gm/dl Triglycerides (0-150) mg/dl Lipase (73-393) U/L Fluid Neutrophils % 89 % Fluid Lymphocytes % 3 % Fluid Eosinophils % 0 % Fluid Basophils % 0 % Fluid Meso/Macro/Mccone % 8 % Fluid Comment Pleural Fluid Source RIGHT LUNG Pleural Color RED Pleural Appearance BLOODY Pleural WBC 6937 /uL Pleural RBC 09933 /uL Pleural Total Protein 3.2 g/dl Pleural LDH 929 U/L Pleural Glucose 148 mg/dl Pleural Amylase 29 U/L Beta-(1,3)-D-Glucan B-(1,3)-D-Glucan Intrp 04/09/21 04/09/21 04/09/21 Range/Units 22:39 22:39 22:38 WBC (4.8-10.8) K/uL RBC (4.7-6.1) M/uL Hgb (14.0-18.0) g/dL Hct (42-52) % MCV (80-100) fL MCH (25-34) pg MCHC (32-36) g/dL RDW Std Deviation (36.4-46.3) fL RDW Coeff of Sujit (11.5-14.5) % Plt Count (130-400) K/uL MPV (7.4-10.4) fL Immature Gran % (Auto) % Neut % (Auto) % Lymph % (Auto) % Mccone % (Auto) % Eos % (Auto) % Baso % (Auto) % Neut # (Auto) (1.4-6.5) K/uL Lymph # (Auto) (1.2-3.4) K/uL Mccone # (Auto) (0.11-0.59) K/uL Eos # (Auto) (0-0.5) K/uL Baso # (Auto) (0-0.2) K/uL Immature Gran # (Auto) (0.00-0.02) K/uL PT (9.0-12.0) Seconds INR (0.9-1.1) Sample Site POC pH (7.35-7.45) POC pCO2 (35-46) mmHg POC pO2 (80-95) mmHg POC HCO3 (19-24) iraida/L POC Total CO2 (24-31) mmol/L POC Base Excess (-9-1.8) iraida/L POC ABG O2 Sat (90-95) % Sher Test O2 Delivery Device POC O2 Rate POC FiO2 % Tidal Volume PEEP Sodium (136-145) mmol/L Potassium (3.5-5.1) mmol/L Chloride (98-107) mmol/L Carbon Dioxide (21-32) mmol/L Anion Gap (3-11) BUN (7-18) mg/dl Creatinine (0.6-1.4) mg/dl Est Cr Clr Drug Dosing ml/min Est GFR ( Amer) ml/min Est GFR (Non-Af Amer) ml/min BUN/Creatinine Ratio (10-20) Glucose (70-99) mg/dl POC Glucose (70-99) mg/dl Calcium (8.5-10.1) mg/dl Ionized Calcium (1.12-1.32) mmol/L Phosphorus (2.5-4.9) mg/dl Magnesium (1.8-2.4) mg/dl Total Bilirubin 0.4 (0.2-1) mg/dl Direct Bilirubin (0-0.2) mg/dl AST (15-37) U/L ALT (12-78) U/L Alkaline Phosphatase (45-117) U/L Lactate Dehydrogenase 346 H (87-241) U/L Total Protein 6.0 L (6.4-8.2) gm/dl Albumin 1.9 L (3.4-5.0) gm/dl Triglycerides (0-150) mg/dl Lipase (73-393) U/L Fluid Neutrophils % % Fluid Lymphocytes % % Fluid Eosinophils % % Fluid Basophils % % Fluid Meso/Macro/Mccone % % Fluid Comment Pleural Fluid Source Pleural Color Pleural Appearance Pleural WBC /uL Pleural RBC /uL Pleural Total Protein g/dl Pleural LDH U/L Pleural Glucose mg/dl Pleural Amylase U/L Beta-(1,3)-D-Glucan Pending B-(1,3)-D-Glucan Intrp Pending 04/09/21 04/09/21 04/09/21 Range/Units 21:53 15:12 11:59 WBC (4.8-10.8) K/uL RBC (4.7-6.1) M/uL Hgb (14.0-18.0) g/dL Hct (42-52) % MCV (80-100) fL MCH (25-34) pg MCHC (32-36) g/dL RDW Std Deviation (36.4-46.3) fL RDW Coeff of Sujit (11.5-14.5) % Plt Count (130-400) K/uL MPV (7.4-10.4) fL Immature Gran % (Auto) % Neut % (Auto) % Lymph % (Auto) % Mccone % (Auto) % Eos % (Auto) % Baso % (Auto) % Neut # (Auto) (1.4-6.5) K/uL Lymph # (Auto) (1.2-3.4) K/uL Mccone # (Auto) (0.11-0.59) K/uL Eos # (Auto) (0-0.5) K/uL Baso # (Auto) (0-0.2) K/uL Immature Gran # (Auto) (0.00-0.02) K/uL PT (9.0-12.0) Seconds INR (0.9-1.1) Sample Site POC pH (7.35-7.45) POC pCO2 (35-46) mmHg POC pO2 (80-95) mmHg POC HCO3 (19-24) iraida/L POC Total CO2 (24-31) mmol/L POC Base Excess (-9-1.8) iraida/L POC ABG O2 Sat (90-95) % Sher Test O2 Delivery Device POC O2 Rate POC FiO2 % Tidal Volume PEEP Sodium (136-145) mmol/L Potassium (3.5-5.1) mmol/L Chloride (98-107) mmol/L Carbon Dioxide (21-32) mmol/L Anion Gap (3-11) BUN (7-18) mg/dl Creatinine (0.6-1.4) mg/dl Est Cr Clr Drug Dosing ml/min Est GFR ( Amer) ml/min Est GFR (Non-Af Amer) ml/min BUN/Creatinine Ratio (10-20) Glucose (70-99) mg/dl POC Glucose 181 H 156 H 182 H (70-99) mg/dl Calcium (8.5-10.1) mg/dl Ionized Calcium (1.12-1.32) mmol/L Phosphorus (2.5-4.9) mg/dl Magnesium (1.8-2.4) mg/dl Total Bilirubin (0.2-1) mg/dl Direct Bilirubin (0-0.2) mg/dl AST (15-37) U/L ALT (12-78) U/L Alkaline Phosphatase (45-117) U/L Lactate Dehydrogenase (87-241) U/L Total Protein (6.4-8.2) gm/dl Albumin (3.4-5.0) gm/dl Triglycerides (0-150) mg/dl Lipase (73-393) U/L Fluid Neutrophils % % Fluid Lymphocytes % % Fluid Eosinophils % % Fluid Basophils % % Fluid Meso/Macro/Mccone % % Fluid Comment Pleural Fluid Source Pleural Color Pleural Appearance Pleural WBC /uL Pleural RBC /uL Pleural Total Protein g/dl Pleural LDH U/L Pleural Glucose mg/dl Pleural Amylase U/L Beta-(1,3)-D-Glucan B-(1,3)-D-Glucan Intrp 04/09/21 04/09/21 Range/Units 08:29 05:14 WBC (4.8-10.8) K/uL RBC (4.7-6.1) M/uL Hgb (14.0-18.0) g/dL Hct (42-52) % MCV (80-100) fL MCH (25-34) pg MCHC (32-36) g/dL RDW Std Deviation (36.4-46.3) fL RDW Coeff of Sujit (11.5-14.5) % Plt Count (130-400) K/uL MPV (7.4-10.4) fL Immature Gran % (Auto) % Neut % (Auto) % Lymph % (Auto) % Mccone % (Auto) % Eos % (Auto) % Baso % (Auto) % Neut # (Auto) (1.4-6.5) K/uL Lymph # (Auto) (1.2-3.4) K/uL Mccone # (Auto) (0.11-0.59) K/uL Eos # (Auto) (0-0.5) K/uL Baso # (Auto) (0-0.2) K/uL Immature Gran # (Auto) (0.00-0.02) K/uL PT (9.0-12.0) Seconds INR (0.9-1.1) Sample Site POC pH (7.35-7.45) POC pCO2 (35-46) mmHg POC pO2 (80-95) mmHg POC HCO3 (19-24) iraida/L POC Total CO2 (24-31) mmol/L POC Base Excess (-9-1.8) iraida/L POC ABG O2 Sat (90-95) % Sher Test O2 Delivery Device POC O2 Rate POC FiO2 % Tidal Volume PEEP Sodium (136-145) mmol/L Potassium (3.5-5.1) mmol/L Chloride (98-107) mmol/L Carbon Dioxide (21-32) mmol/L Anion Gap (3-11) BUN (7-18) mg/dl Creatinine (0.6-1.4) mg/dl Est Cr Clr Drug Dosing ml/min Est GFR ( Amer) ml/min Est GFR (Non-Af Amer) ml/min BUN/Creatinine Ratio (10-20) Glucose (70-99) mg/dl POC Glucose 140 H (70-99) mg/dl Calcium (8.5-10.1) mg/dl Ionized Calcium (1.12-1.32) mmol/L Phosphorus (2.5-4.9) mg/dl Magnesium (1.8-2.4) mg/dl Total Bilirubin (0.2-1) mg/dl Direct Bilirubin (0-0.2) mg/dl AST (15-37) U/L ALT (12-78) U/L Alkaline Phosphatase (45-117) U/L Lactate Dehydrogenase (87-241) U/L Total Protein (6.4-8.2) gm/dl Albumin (3.4-5.0) gm/dl Triglycerides (0-150) mg/dl Lipase 111 (73-393) U/L Fluid Neutrophils % % Fluid Lymphocytes % % Fluid Eosinophils % % Fluid Basophils % % Fluid Meso/Macro/Mccone % % Fluid Comment Pleural Fluid Source Pleural Color Pleural Appearance Pleural WBC /uL Pleural RBC /uL Pleural Total Protein g/dl Pleural LDH U/L Pleural Glucose mg/dl Pleural Amylase U/L Beta-(1,3)-D-Glucan B-(1,3)-D-Glucan Intrp Coding Level of Care Code Critical Care 1st 30-74 mins Diagnoses Acute respiratory failure with hypoxia J96.01 Pneumonia due to COVID-19 virus U07.1; J12.82
[2021-04-10] MEDS: ENOXAPARIN INJ 120 MG/0.8 ML SYR SQ SCH ×2 (08:38→20:08)
[2021-04-10] MEDS: LANSOPRAZOLE 30 MG SOLTAB OG SCH ×2 (08:38→20:08)
[2021-04-10] MEDS: OLANZapine 10 MG TAB PO SCH (08:39)
[2021-04-10] MEDS: SENNOSIDES 8.8 MG/5 ML UDC PO SCH ×2 (08:39→20:07)
[2021-04-10] MEDS: IMPACT LIQD 1.0 CAL 1,000 ML BAG GT SCH (08:51)
[2021-04-10] MEDS: POTASSIUM CHLORIDE / WTR 10 MEQ/100 ML PLCT IV SCH ×4 (08:54→11:35)
--- NOTE | 2021-04-10 08:56 | XRay Report ---
XR chest 1V portable HISTORY: s/p thoracentesis COMPARISON: Chest CT 04/09/2021. FINDINGS: Rotated study. No pneumothorax. Small right pleural effusion and diffuse bilateral airspace opacities persist. A tracheostomy tube appears in good position. The heart remains mildly enlarged. IMPRESSION: 1. Diffuse bilateral airspace opacities, unchanged. 2. Small right pleural effusion persists. ACT 112: Negative or not required by law. Electronically signed by: Marco A Yee M.D. 04/10/2021 8:55 AM
--- NOTE | 2021-04-10 09:16 | Electroencephalogram ---
EEG Procedure Note Date of Service April 10, 2021 Start / End Times Start Time: 1256pm End Time: 1:16pm Referring Physician Rebel Wall History AMS, active COVID/currently intubated Home Medication List Medication Instructions Recorded Confirmed Type amlodipine 10 mg tablet 10 mg PO DAILY 06/22/20 03/20/21 History losartan 100 mg tablet 100 mg PO DAILY 06/22/20 03/20/21 History mupirocin 2 % topical ointment 1 applic TOPICAL UD 06/22/20 03/20/21 History prednisone 20 mg tablet 20 mg PO DAILY 06/22/20 04/06/21 History solifenacin 10 mg tablet (Vesicare) 10 mg PO DAILY #30 tab 10/13/20 03/20/21 Rx Inpatient Medication List Acetaminophen (Acetaminophen 500 Mg Tab) 1,000 mg PO Q6H PRN PRN Reason: Fever or headache Stop: 05/05/21 12:50 Last Admin: 04/08/21 20:55 Dose: 1,000 mg Documented by: [id number] Admin: 04/08/21 04:13 Dose: 1,000 mg Documented by: [id number] Admin: 04/07/21 14:34 Dose: 1,000 mg Documented by: [id number] Admin: 04/06/21 16:41 Dose: 1,000 mg Documented by: [id number] Amlodipine Besylate (Amlodipine Besylate 5 Mg Tab) 10 mg PO QAM [facility] Stop: 04/29/21 08:59 Last Admin: 03/31/21 08:20 Dose: 10 mg Documented by: [id number] Admin: 03/30/21 10:22 Dose: 10 mg Documented by: [id number] Enoxaparin Sodium (Enoxaparin Inj 120 Mg/0.8 Ml Syr) 120 mg SQ BID [facility] Stop: 05/08/21 20:59 Last Admin: 04/10/21 08:38 Dose: 120 mg Documented by: [id number] Admin: 04/09/21 21:22 Dose: 120 mg Documented by: [id number] Admin: 04/09/21 10:30 Dose: 120 mg Documented by: [id number] Admin: 04/08/21 20:19 Dose: 120 mg Documented by: [id number] Enteral Nutritional Formula (Impact Liqd 1.0 Darrian 1,000 Ml Bag) 1,[address] [facility]; Protocol Stop: 05/10/21 07:59 Last Admin: 04/10/21 08:51 Dose: 1,000 ml Documented by: [id number] Fentanyl Citrate (Fentanyl Bolus From Bag) 50 mcg IV Q60M PRN PRN Reason: Pain or Agitation Stop: 04/10/21 10:05 Last Admin: 04/07/21 08:42 Dose: 50 mcg Documented by: [id number] Admin: 04/07/21 07:38 Dose: 50 mcg Documented by: [id number] Admin: 04/06/21 16:51 Dose: 50 mcg Documented by: [id number] Admin: 04/05/21 12:15 Dose: 200 mcg Documented by: [id number] Admin: 04/05/21 11:45 Dose: 200 mcg Documented by: [id number] Admin: 04/05/21 07:48 Dose: 50 mcg Documented by: [id number] Admin: 04/04/21 15:37 Dose: 50 mcg Documented by: [id number] Admin: 04/04/21 11:52 Dose: 50 mcg Documented by: [id number] Admin: 04/04/21 05:25 Dose: 50 mcg Documented by: [id number] Admin: 04/03/21 21:26 Dose: 50 mcg Documented by: [id number] Admin: 04/03/21 12:10 Dose: 50 mcg Documented by: [id number] Admin: 04/03/21 05:00 Dose: 50 mcg Documented by: [id number] Admin: 04/03/21 04:00 Dose: 50 mcg Documented by: [id number] Admin: 04/02/21 13:00 Dose: 50 mcg Documented by: [id number] Admin: 04/01/21 21:20 Dose: 50 mcg Documented by: [id number] Admin: 04/01/21 20:00 Dose: 50 mcg Documented by: [id number] Admin: 04/01/21 19:00 Dose: 50 mcg Documented by: [id number] Admin: 03/31/21 10:00 Dose: 50 mcg Documented by: [id number] Admin: 03/31/21 09:00 Dose: 50 mcg Documented by: [id number] Admin: 03/27/21 21:00 Dose: 50 mcg Documented by: [id number] Fentanyl Citrate (Fentanyl Citrate) 2,500 mcg in 250 mls @ 20 mls/hr IV .[id number] [facility]; Protocol Stop: 04/16/21 19:29 Last Admin: 04/09/21 23:26 Dose: 175 mcg/hr, 17.5 mls/hr Documented by: [id number] Cosigned by: [id number] Titration: 04/09/21 23:26 Dose: 175 mcg/hr, 17.5 mls/hr Documented by: [id number] Cosigned by: [id number] Titration: 04/09/21 15:27 Dose: 175 mcg/hr, 17.5 mls/hr Documented by: [id number] Cosigned by: [id number] Admin: 04/09/21 10:39 Dose: 200 mcg/hr, 20 mls/hr Documented by: [id number] Cosigned by: [id number] Titration: 04/09/21 10:39 Dose: 200 mcg/hr, 20 mls/hr Documented by: [id number] Cosigned by: [id number] Admin: 04/08/21 23:09 Dose: 200 mcg/hr, 20 mls/hr Documented by: [id number] Cosigned by: [id number] Titration: 04/08/21 22:25 Dose: 200 mcg/hr, 20 mls/hr Documented by: [id number] Cosigned by: [id number] Titration: 04/08/21 21:50 Dose: 200 mcg/hr, 20 mls/hr Documented by: [id number] Cosigned by: [id number] Admin: 04/08/21 08:12 Dose: 175 mcg/hr, 17.5 mls/hr Documented by: [id number] Cosigned by: [id number] Titration: 04/08/21 08:12 Dose: 175 mcg/hr, 17.5 mls/hr Documented by: [id number] Cosigned by: [id number] Titration: 04/08/21 07:10 Dose: 175 mcg/hr, 17.5 mls/hr Documented by: [id number] Cosigned by: [id number] Titration: 04/08/21 02:54 Dose: 175 mcg/hr, 17.5 mls/hr Documented by: [id number] Cosigned by: [id number] Titration: 04/07/21 19:14 Dose: 150 mcg/hr, 15 mls/hr Documented by: [id number] Cosigned by: [id number] Admin: 04/07/21 17:44 Dose: 150 mcg/hr, 15 mls/hr Documented by: [id number] Cosigned by: [id number] Titration: 04/07/21 17:11 Dose: 150 mcg/hr, 15 mls/hr Documented by: [id number] Cosigned by: [id number] Titration: 04/07/21 14:33 Dose: 150 mcg/hr, 15 mls/hr Documented by: [id number] Cosigned by: [id number] Titration: 04/07/21 12:04 Dose: 125 mcg/hr, 12.5 mls/hr Documented by: [id number] Cosigned by: [id number] Titration: 04/07/21 09:34 Dose: 150 mcg/hr, 15 mls/hr Documented by: [id number] Cosigned by: [id number] Titration: 04/07/21 07:07 Dose: 175 mcg/hr, 17.5 mls/hr Documented by: [id number] Cosigned by: [id number] Admin: 04/07/21 01:27 Dose: 175 mcg/hr, 17.5 mls/hr Documented by: [id number] Cosigned by: [id number] Titration: 04/07/21 01:27 Dose: 0 mcg/hr, 0 mls/hr Documented by: [id number] Cosigned by: [id number] Admin: 04/06/21 23:08 Dose: Not Given Documented by: [id number] Titration: 04/06/21 23:00 Dose: 0 mcg/hr, 0 mls/hr Documented by: [id number] Cosigned by: [id number] Titration: 04/06/21 19:01 Dose: 150 mcg/hr, 15 mls/hr Documented by: [id number] Cosigned by: [id number] Titration: 04/06/21 17:05 Dose: 150 mcg/hr, 15 mls/hr Documented by: [id number] Cosigned by: [id number] Titration: 04/06/21 16:23 Dose: 75 mcg/hr, 7.5 mls/hr Documented by: [id number] Cosigned by: [id number] Titration: 04/06/21 16:00 Dose: 100 mcg/hr, 10 mls/hr Documented by: [id number] Cosigned by: [id number] Titration: 04/06/21 08:10 Dose: 125 mcg/hr, 12.5 mls/hr Documented by: [id number] Cosigned by: [id number] Titration: 04/06/21 07:30 Dose: 150 mcg/hr, 15 mls/hr Documented by: [id number] Cosigned by: [id number] Titration: 04/06/21 06:58 Dose: 175 mcg/hr, 17.5 mls/hr Documented by: [id number] Cosigned by: [id number] Admin: 04/06/21 04:58 Dose: 175 mcg/hr, 17.5 mls/hr Documented by: [id number] Cosigned by: [id number] Titration: 04/06/21 04:58 Dose: 175 mcg/hr, 17.5 mls/hr Documented by: [id number] Cosigned by: [id number] Titration: 04/06/21 01:39 Dose: 175 mcg/hr, 17.5 mls/hr Documented by: [id number] Cosigned by: [id number] Titration: 04/05/21 18:57 Dose: 150 mcg/hr, 15 mls/hr Documented by: [id number] Cosigned by: [id number] Titration: 04/05/21 17:00 Dose: 150 mcg/hr, 15 mls/hr Documented by: [id number] Cosigned by: [id number] Titration: 04/05/21 16:00 Dose: 175 mcg/hr, 17.5 mls/hr Documented by: [id number] Cosigned by: [id number] Admin: 04/05/21 15:49 Dose: 200 mcg/hr, 20 mls/hr Documented by: [id number] Cosigned by: [id number] Titration: 04/05/21 14:00 Dose: 200 mcg/hr, 20 mls/hr Documented by: [id number] Cosigned by: [id number] Admin: 04/05/21 13:48 Dose: Not Given Documented by: [id number] Admin: 04/05/21 13:47 Dose: Not Given Documented by: [id number] Admin: 04/05/21 13:47 Dose: Not Given Documented by: [id number] Admin: 04/05/21 13:46 Dose: Not Given Documented by: [id number] Admin: 04/05/21 13:46 Dose: Not Given Documented by: [id number] Admin: 04/05/21 13:44 Dose: Not Given Documented by: [id number] Titration: 04/05/21 07:48 Dose: 200 mcg/hr, 20 mls/hr Documented by: [id number] Cosigned by: [id number] Titration: 04/05/21 07:09 Dose: 175 mcg/hr, 17.5 mls/hr Documented by: [id number] Cosigned by: [id number] Admin: 04/05/21 04:00 Dose: 175 mcg/hr, 17.5 mls/hr Documented by: [id number] Cosigned by: [id number] Titration: 04/05/21 03:40 Dose: 175 mcg/hr, 17.5 mls/hr Documented by: [id number] Cosigned by: [id number] Titration: 04/04/21 19:06 Dose: 175 mcg/hr, 17.5 mls/hr Documented by: [id number] Cosigned by: [id number] Admin: 04/04/21 13:22 Dose: 175 mcg/hr, 17.5 mls/hr Documented by: [id number] Cosigned by: [id number] Titration: 04/04/21 13:22 Dose: 175 mcg/hr, 17.5 mls/hr Documented by: [id number] Cosigned by: [id number] Titration: 04/04/21 07:13 Dose: 175 mcg/hr, 17.5 mls/hr Documented by: [id number] Cosigned by: [id number] Admin: 04/04/21 00:39 Dose: 175 mcg/hr, 17.5 mls/hr Documented by: [id number] Cosigned by: [id number] Titration: 04/04/21 00:39 Dose: 175 mcg/hr, 17.5 mls/hr Documented by: [id number] Cosigned by: [id number] Titration: 04/03/21 19:16 Dose: 175 mcg/hr, 17.5 mls/hr Documented by: [id number] Cosigned by: [id number] Titration: 04/03/21 17:00 Dose: 175 mcg/hr, 17.5 mls/hr Documented by: [id number] Cosigned by: [id number] Admin: 04/03/21 14:10 Dose: 150 mcg/hr, 15 mls/hr Documented by: [id number] Cosigned by: [id number] Titration: 04/03/21 14:07 Dose: 150 mcg/hr, 15 mls/hr Documented by: [id number] Cosigned by: [id number] Titration: 04/03/21 10:18 Dose: 150 mcg/hr, 15 mls/hr Documented by: [id number] Cosigned by: [id number] Titration: 04/03/21 08:00 Dose: 175 mcg/hr, 17.5 mls/hr Documented by: [id number] Cosigned by: [id number] Titration: 04/03/21 07:00 Dose: 200 mcg/hr, 20 mls/hr Documented by: [id number] Cosigned by: [id number] Admin: 04/03/21 00:22 Dose: 200 mcg/hr, 20 mls/hr Documented by: [id number] Cosigned by: [id number] Levofloxacin/Dextrose (Levaquin/D5w) 750 mg in 150 mls @ 100 mls/hr IV DAILY@1000 [facility]; Protocol Stop: 04/17/21 10:44 Last Infusion: 04/09/21 11:47 Dose: 0 mls/hr Documented by: [id number] Admin: 04/09/21 10:17 Dose: 100 mls/hr Documented by: [id number] Infusion: 04/08/21 09:43 Dose: 0 mls/hr Documented by: [id number] Admin: 04/08/21 08:13 Dose: 100 mls/hr Documented by: [id number] Infusion: 04/07/21 13:00 Dose: 0 mls/hr Documented by: [id number] Admin: 04/07/21 11:19 Dose: 100 mls/hr Documented by: [id number] Metronidazole (Flagyl) 500 mg in 100 mls @ 100 mls/hr IV Q8@0200,1000,1800 [facility] Stop: 04/17/21 10:44 Last Infusion: 04/10/21 03:36 Dose: 0 mls/hr Documented by: [id number] Admin: 04/10/21 01:30 Dose: 100 mls/hr Documented by: [id number] Infusion: 04/10/21 00:24 Dose: 0 mls/hr Documented by: [id number] Admin: 04/09/21 21:15 Dose: 100 mls/hr Documented by: [id number] Infusion: 04/09/21 11:17 Dose: 0 mls/hr Documented by: [id number] Admin: 04/09/21 10:17 Dose: 100 mls/hr Documented by: [id number] Infusion: 04/09/21 02:58 Dose: 0 mls/hr Documented by: [id number] Admin: 04/09/21 01:31 Dose: 100 mls/hr Documented by: [id number] Infusion: 04/08/21 18:40 Dose: 0 mls/hr Documented by: [id number] Admin: 04/08/21 18:09 Dose: 100 mls/hr Documented by: [id number] Infusion: 04/08/21 09:15 Dose: 0 mls/hr Documented by: [id number] Admin: 04/08/21 08:13 Dose: 100 mls/hr Documented by: [id number] Infusion: 04/08/21 03:10 Dose: 0 mls/hr Documented by: [id number] Admin: 04/08/21 01:58 Dose: 100 mls/hr Documented by: [id number] Infusion: 04/07/21 19:16 Dose: 0 mls/hr Documented by: [id number] Admin: 04/07/21 17:44 Dose: 100 mls/hr Documented by: [id number] Infusion: 04/07/21 12:20 Dose: 0 mls/hr Documented by: [id number] Admin: 04/07/21 11:19 Dose: 100 mls/hr Documented by: [id number] Amiodarone HCl/Dextrose (Nexterone / D5w) 360 mg in 200 mls @ 33.333 mls/hr IV .Q6H [facility] Stop: 05/08/21 02:59 Last Admin: 04/10/21 08:00 Dose: 1 mg/min, 33.3 mls/hr Documented by: [id number] Cosigned by: [id number] Infusion: 04/10/21 07:31 Dose: 1 mg/min, 33.3 mls/hr Documented by: [id number] Cosigned by: [id number] Admin: 04/10/21 01:30 Dose: 1 mg/min, 33.3 mls/hr Documented by: [id number] Cosigned by: [id number] Infusion: 04/10/21 01:30 Dose: 1 mg/min, 33.3 mls/hr Documented by: [id number] Cosigned by: [id number] Infusion: 04/10/21 01:29 Dose: 1 mg/min, 33.3 mls/hr Documented by: [id number] Cosigned by: [id number] Admin: 04/09/21 15:07 Dose: 0.5 mg/min, 16.7 mls/hr Documented by: [id number] Cosigned by: [id number] Infusion: 04/09/21 13:31 Dose: 0.5 mg/min, 16.7 mls/hr Documented by: [id number] Cosigned by: [id number] Admin: 04/09/21 01:32 Dose: 0.5 mg/min, 16.7 mls/hr Documented by: [id number] Cosigned by: [id number] Infusion: 04/09/21 01:25 Dose: 0.5 mg/min, 16.7 mls/hr Documented by: [id number] Cosigned by: [id number] Admin: 04/08/21 13:26 Dose: 0.5 mg/min, 16.7 mls/hr Documented by: [id number] Cosigned by: [id number] Infusion: 04/08/21 13:26 Dose: 0.5 mg/min, 16.7 mls/hr Documented by: [id number] Cosigned by: [id number] Infusion: 04/08/21 07:10 Dose: 0.5 mg/min, 16.7 mls/hr Documented by: [id number] Cosigned by: [id number] Admin: 04/08/21 02:38 Dose: 0.5 mg/min, 16.7 mls/hr Documented by: [id number] Cosigned by: [id number] Vancomycin HCl 1,500 mg/ (Sodium Chloride) 530 mls @ 200 mls/hr IV Q12H [facility]; Protocol Stop: 04/23/21 21:59 Last Infusion: 04/10/21 03:36 Dose: 0 mls/hr Documented by: [id number] Admin: 04/09/21 22:57 Dose: 200 mls/hr Documented by: [id number] Diltiazem HCl 125 mg/ Dextrose 125 mls @ 5 mls/hr IV .Q24H [facility]; Protocol Stop: 05/10/21 02:29 Last Admin: 04/10/21 02:36 Dose: 5 mg/hr, 5 mls/hr Documented by: [id number] Cosigned by: [id number] Potassium Chloride (K Miko / Wtr) 10 meq in 100 mls @ 100 mls/hr IV Q1H [facility] Stop: 04/10/21 11:59 Last Admin: 04/10/21 08:54 Dose: 100 mls/hr Documented by: [id number] Insulin Aspart (Insulin Aspart 100 Units/Ml 3 Ml Pen) 0 units SC Q4 [facility] Stop: 05/07/21 07:59 Last Admin: 04/10/21 04:48 Dose: Not Given Documented by: [id number] Admin: 04/10/21 00:25 Dose: Not Given Documented by: [id number] Admin: 04/09/21 21:56 Dose: 3 units Documented by: [id number] Cosigned by: [id number] Admin: 04/09/21 15:18 Dose: 1 units Documented by: [id number] Cosigned by: [id number] Admin: 04/09/21 12:11 Dose: 2 units Documented by: [id number] Cosigned by: [id number] Admin: 04/09/21 08:33 Dose: Not Given Documented by: [id number] Admin: 04/09/21 04:38 Dose: Not Given Documented by: [id number] Admin: 04/08/21 23:33 Dose: 4 units Documented by: [id number] Cosigned by: [id number] Admin: 04/08/21 20:51 Dose: 4 units Documented by: [id number] Cosigned by: [id number] Admin: 04/08/21 16:29 Dose: 1 units Documented by: [id number] Cosigned by: [id number] Admin: 04/08/21 12:49 Dose: 4 units Documented by: [id number] Cosigned by: [id number] Admin: 04/08/21 08:47 Dose: 3 units Documented by: [id number] Cosigned by: [id number] Admin: 04/08/21 04:33 Dose: 2 units Documented by: [id number] Cosigned by: [id number] Admin: 04/08/21 00:44 Dose: 4 units Documented by: [id number] Cosigned by: [id number] Admin: 04/07/21 20:46 Dose: 6 units Documented by: [id number] Cosigned by: [id number] Admin: 04/07/21 18:15 Dose: 2 units Documented by: [id number] Cosigned by: [id number] Admin: 04/07/21 12:03 Dose: 4 units Documented by: [id number] Cosigned by: [id number] Admin: 04/07/21 07:36 Dose: 1 units Documented by: [id number] Cosigned by: [id number] Lansoprazole (Lansoprazole 30 Mg Soltab) 30 mg OG BID [facility] Stop: 04/27/21 20:59 Last Admin: 04/10/21 08:38 Dose: 30 mg Documented by: [id number] Admin: 04/09/21 23:15 Dose: Not Given Documented by: [id number] Admin: 04/09/21 10:30 Dose: Not Given Documented by: [id number] Admin: 04/08/21 20:14 Dose: 30 mg Documented by: [id number] Admin: 04/08/21 08:17 Dose: 30 mg Documented by: [id number] Admin: 04/07/21 21:07 Dose: 30 mg Documented by: [id number] Admin: 04/07/21 08:19 Dose: 30 mg Documented by: [id number] Admin: 04/06/21 20:15 Dose: 30 mg Documented by: [id number] Admin: 04/06/21 07:42 Dose: 30 mg Documented by: [id number] Admin: 04/05/21 20:26 Dose: 30 mg Documented by: [id number] Admin: 04/05/21 09:03 Dose: 30 mg Documented by: [id number] Admin: 04/04/21 20:07 Dose: 30 mg Documented by: [id number] Admin: 04/04/21 08:05 Dose: 30 mg Documented by: [id number] Admin: 04/03/21 20:10 Dose: 30 mg Documented by: [id number] Admin: 04/03/21 07:36 Dose: 30 mg Documented by: [id number] Admin: 04/02/21 19:59 Dose: 30 mg Documented by: [id number] Admin: 04/02/21 08:41 Dose: 30 mg Documented by: [id number] Admin: 04/01/21 20:31 Dose: 30 mg Documented by: [id number] Admin: 04/01/21 09:46 Dose: 30 mg Documented by: [id number] Admin: 03/31/21 21:11 Dose: 30 mg Documented by: [id number] Admin: 03/31/21 08:22 Dose: 30 mg Documented by: [id number] Admin: 03/30/21 20:37 Dose: 30 mg Documented by: [id number] Admin: 03/30/21 07:56 Dose: 30 mg Documented by: [id number] Admin: 03/29/21 20:21 Dose: 30 mg Documented by: [id number] Admin: 03/29/21 07:17 Dose: 30 mg Documented by: [id number] Admin: 03/28/21 20:16 Dose: 30 mg Documented by: [id number] Metoprolol Tartrate (Metoprolol Tartrate 1 Mg/Ml Vial) 5 mg IV Q4 [facility] Stop: 05/10/21 00:00 Last Admin: 04/10/21 08:53 Dose: 5 mg Documented by: [id number] Admin: 04/10/21 04:51 Dose: 5 mg Documented by: [id number] Admin: 04/10/21 00:19 Dose: 5 mg Documented by: [id number] Multi-Ingredient Cream (Artificial Tears Op Oint 3.5 Gm Tube) 1 appln OP Q4H [facility] Stop: 04/26/21 08:59 Last Admin: 04/10/21 08:38 Dose: 1 appln Documented by: [id number] Admin: 04/10/21 04:51 Dose: 1 appln Documented by: [id number] Admin: 04/10/21 01:28 Dose: 1 appln Documented by: [id number] Admin: 04/09/21 23:15 Dose: 1 appln Documented by: [id number] Admin: 04/09/21 22:01 Dose: Not Given Documented by: [id number] Admin: 04/09/21 13:34 Dose: 1 appln Documented by: [id number] Admin: 04/09/21 10:30 Dose: 1 appln Documented by: [id number] Admin: 04/09/21 04:39 Dose: 1 appln Documented by: [id number] Admin: 04/09/21 01:32 Dose: 1 appln Documented by: [id number] Admin: 04/08/21 20:50 Dose: 1 appln Documented by: [id number] Admin: 04/08/21 16:30 Dose: 1 appln Documented by: [id number] Admin: 04/08/21 12:50 Dose: 1 appln Documented by: [id number] Admin: 04/08/21 08:15 Dose: 1 appln Documented by: [id number] Admin: 04/08/21 05:37 Dose: 1 appln Documented by: [id number] Admin: 04/08/21 00:04 Dose: 1 appln Documented by: [id number] Admin: 04/07/21 21:09 Dose: 1 appln Documented by: [id number] Admin: 04/07/21 16:22 Dose: Not Given Documented by: [id number] Admin: 04/07/21 12:04 Dose: Not Given Documented by: [id number] Admin: 04/07/21 08:05 Dose: Not Given Documented by: [id number] Admin: 04/07/21 04:31 Dose: 1 appln Documented by: [id number] Admin: 04/07/21 01:05 Dose: Not Given Documented by: [id number] Admin: 04/06/21 20:15 Dose: 1 appln Documented by: [id number] Admin: 04/06/21 16:23 Dose: Not Given Documented by: [id number] Admin: 04/06/21 12:06 Dose: Not Given Documented by: [id number] Admin: 04/06/21 07:31 Dose: Not Given Documented by: [id number] Admin: 04/06/21 04:56 Dose: 1 appln Documented by: [id number] Admin: 04/06/21 01:38 Dose: 1 appln Documented by: [id number] Admin: 04/05/21 20:25 Dose: 1 appln Documented by: [id number] Admin: 04/05/21 17:06 Dose: 1 appln Documented by: [id number] Admin: 04/05/21 13:02 Dose: 1 appln Documented by: [id number] Admin: 04/05/21 09:04 Dose: 1 appln Documented by: [id number] Admin: 04/05/21 05:59 Dose: 1 appln Documented by: [id number] Admin: 04/05/21 00:12 Dose: 1 appln Documented by: [id number] Admin: 04/04/21 20:06 Dose: 1 appln Documented by: [id number] Admin: 04/04/21 17:14 Dose: 1 appln Documented by: [id number] Admin: 04/04/21 11:52 Dose: 1 appln Documented by: [id number] Admin: 04/04/21 08:06 Dose: 1 appln Documented by: [id number] Admin: 04/04/21 05:45 Dose: 1 appln Documented by: [id number] Admin: 04/04/21 00:52 Dose: 1 appln Documented by: [id number] Admin: 04/03/21 20:11 Dose: 1 appln Documented by: [id number] Admin: 04/03/21 16:54 Dose: 1 appln Documented by: [id number] Admin: 04/03/21 12:02 Dose: 1 appln Documented by: [id number] Admin: 04/03/21 07:36 Dose: 1 appln Documented by: [id number] Admin: 04/03/21 05:09 Dose: 1 appln Documented by: [id number] Admin: 04/03/21 02:24 Dose: 1 appln Documented by: [id number] Admin: 04/02/21 21:05 Dose: 1 appln Documented by: [id number] Admin: 04/02/21 17:56 Dose: 1 appln Documented by: [id number] Admin: 04/02/21 12:15 Dose: 1 appln Documented by: [id number] Admin: 04/02/21 08:40 Dose: 1 appln Documented by: [id number] Admin: 04/02/21 05:22 Dose: 1 appln Documented by: [id number] Admin: 04/02/21 00:46 Dose: 1 appln Documented by: [id number] Admin: 04/01/21 19:44 Dose: 1 appln Documented by: [id number] Admin: 04/01/21 17:24 Dose: 1 appln Documented by: [id number] Admin: 04/01/21 13:44 Dose: 1 appln Documented by: [id number] Admin: 04/01/21 09:45 Dose: 1 appln Documented by: [id number] Admin: 04/01/21 05:03 Dose: Not Given Documented by: [id number] Admin: 04/01/21 03:26 Dose: Not Given Documented by: [id number] Admin: 03/31/21 21:10 Dose: 1 appln Documented by: [id number] Admin: 03/31/21 18:22 Dose: 1 appln Documented by: [id number] Admin: 03/31/21 12:16 Dose: 1 appln Documented by: [id number] Admin: 03/31/21 08:20 Dose: 1 appln Documented by: [id number] Admin: 03/31/21 05:02 Dose: 1 appln Documented by: [id number] Admin: 03/31/21 01:03 Dose: 1 appln Documented by: [id number] Admin: 03/30/21 20:37 Dose: 1 appln Documented by: [id number] Admin: 03/30/21 15:07 Dose: 1 appln Documented by: [id number] Admin: 03/30/21 12:11 Dose: 1 appln Documented by: [id number] Admin: 03/30/21 07:54 Dose: 1 appln Documented by: [id number] Admin: 03/30/21 06:12 Dose: 1 appln Documented by: [id number] Admin: 03/30/21 00:23 Dose: 1 appln Documented by: [id number] Admin: 03/29/21 20:00 Dose: Not Given Documented by: [id number] Admin: 03/29/21 17:26 Dose: 1 appln Documented by: [id number] Admin: 03/29/21 11:52 Dose: 1 appln Documented by: [id number] Admin: 03/29/21 07:16 Dose: 1 appln Documented by: [id number] Admin: 03/29/21 05:10 Dose: 1 appln Documented by: [id number] Admin: 03/29/21 01:53 Dose: Not Given Documented by: [id number] Admin: 03/28/21 20:15 Dose: Not Given Documented by: [id number] Admin: 03/28/21 17:17 Dose: 1 appln Documented by: [id number] Admin: 03/28/21 14:36 Dose: 1 appln Documented by: [id number] Admin: 03/28/21 07:41 Dose: 1 appln Documented by: [id number] Admin: 03/28/21 05:50 Dose: 1 appln Documented by: [id number] Admin: 03/28/21 01:35 Dose: Not Given Documented by: [id number] Admin: 03/27/21 21:39 Dose: Not Given Documented by: [id number] Admin: 03/27/21 15:50 Dose: 1 appln Documented by: [id number] Admin: 03/27/21 13:51 Dose: 1 appln Documented by: [id number] Admin: 03/27/21 11:58 Dose: 1 appln Documented by: [id number] Olanzapine (Olanzapine 10 Mg Tab) 10 mg PO QAM MARCIA Stop: 05/10/21 08:59 Last Admin: 04/10/21 08:39 Dose: 10 mg Documented by: [id number] Sennosides (Sennosides 8.8 Mg/5 Ml Udc) 17.6 mg PO BID MARCIA Stop: 05/06/21 20:59 Last Admin: 04/10/21 08:39 Dose: 17.6 mg Documented by: [id number] Admin: 04/09/21 23:15 Dose: Not Given Documented by: [id number] Admin: 04/09/21 10:31 Dose: Not Given Documented by: [id number] Admin: 04/08/21 20:15 Dose: 17.6 mg Documented by: [id number] Admin: 04/08/21 08:18 Dose: 17.6 mg Documented by: [id number] Admin: 04/07/21 21:08 Dose: 17.6 mg Documented by: [id number] Admin: 04/07/21 08:05 Dose: Not Given Documented by: [id number] Admin: 04/06/21 20:15 Dose: 17.6 mg Documented by: [id number] Sterile Water (Tube Feeding Water Flush) 30 ml GT Q4H MARCIA Stop: 04/27/21 13:59 Last Admin: 04/09/21 21:16 Dose: Not Given Documented by: [id number] Admin: 04/09/21 13:34 Dose: Not Given Documented by: [id number] Admin: 04/09/21 10:31 Dose: Not Given Documented by: [id number] Admin: 04/09/21 05:54 Dose: 30 ml Documented by: [id number] Admin: 04/09/21 01:32 Dose: 30 ml Documented by: [id number] Admin: 04/09/21 01:00 Dose: 30 ml Documented by: [id number] Admin: 04/08/21 18:09 Dose: 30 ml Documented by: [id number] Admin: 04/08/21 13:27 Dose: 30 ml Documented by: [id number] Admin: 04/08/21 08:18 Dose: 30 ml Documented by: [id number] Admin: 04/08/21 05:37 Dose: 30 ml Documented by: [id number] Admin: 04/08/21 01:59 Dose: 30 ml Documented by: [id number] Admin: 04/07/21 21:18 Dose: 30 ml Documented by: [id number] Admin: 04/07/21 17:45 Dose: 30 ml Documented by: [id number] Admin: 04/07/21 13:12 Dose: 30 ml Documented by: [id number] Admin: 04/07/21 11:19 Dose: 30 ml Documented by: [id number] Admin: 04/07/21 04:31 Dose: 30 ml Documented by: [id number] Admin: 04/07/21 02:31 Dose: 30 ml Documented by: [id number] Admin: 04/06/21 20:15 Dose: 30 ml Documented by: [id number] Admin: 04/06/21 17:22 Dose: 30 ml Documented by: [id number] Admin: 04/06/21 13:56 Dose: 30 ml Documented by: [id number] Admin: 04/06/21 08:43 Dose: 30 ml Documented by: [id number] Admin: 04/06/21 04:58 Dose: 30 ml Documented by: [id number] Admin: 04/06/21 01:38 Dose: 30 ml Documented by: [id number] Admin: 04/05/21 20:45 Dose: 30 ml Documented by: [id number] Admin: 04/05/21 17:46 Dose: 30 ml Documented by: [id number] Admin: 04/05/21 15:25 Dose: 30 ml Documented by: [id number] Admin: 04/05/21 10:40 Dose: 30 ml Documented by: [id number] Admin: 04/05/21 05:59 Dose: 30 ml Documented by: [id number] Admin: 04/05/21 03:22 Dose: 30 ml Documented by: [id number] Admin: 04/05/21 00:11 Dose: 30 ml Documented by: [id number] Admin: 04/04/21 17:14 Dose: 30 ml Documented by: [id number] Admin: 04/04/21 13:23 Dose: 30 ml Documented by: [id number] Admin: 04/04/21 09:23 Dose: 30 ml Documented by: [id number] Admin: 04/04/21 05:46 Dose: 30 ml Documented by: [id number] Admin: 04/04/21 01:33 Dose: 30 ml Documented by: [id number] Admin: 04/03/21 23:19 Dose: 30 ml Documented by: [id number] Admin: 04/03/21 17:15 Dose: 30 ml Documented by: [id number] Admin: 04/03/21 14:41 Dose: 30 ml Documented by: [id number] Admin: 04/03/21 10:19 Dose: 30 ml Documented by: [id number] Admin: 04/03/21 05:09 Dose: 30 ml Documented by: [id number] Admin: 04/03/21 02:24 Dose: 30 ml Documented by: [id number] Admin: 04/02/21 23:15 Dose: 30 ml Documented by: [id number] Admin: 04/02/21 17:54 Dose: 30 ml Documented by: [id number] Admin: 04/02/21 12:53 Dose: 30 ml Documented by: [id number] Admin: 04/02/21 08:46 Dose: 30 ml Documented by: [id number] Admin: 04/02/21 05:22 Dose: 30 ml Documented by: [id number] Admin: 04/02/21 02:04 Dose: 30 ml Documented by: [id number] Admin: 04/01/21 23:00 Dose: 30 ml Documented by: [id number] Admin: 04/01/21 17:24 Dose: 30 ml Documented by: [id number] Admin: 04/01/21 15:56 Dose: 30 ml Documented by: [id number] Admin: 04/01/21 09:48 Dose: 30 ml Documented by: [id number] Admin: 04/01/21 05:25 Dose: 30 ml Documented by: [id number] Admin: 04/01/21 03:26 Dose: 30 ml Documented by: [id number] Admin: 03/31/21 21:12 Dose: 30 ml Documented by: [id number] Admin: 03/31/21 18:22 Dose: 30 ml Documented by: [id number] Admin: 03/31/21 13:00 Dose: 30 ml Documented by: [id number] Admin: 03/31/21 10:31 Dose: 30 ml Documented by: [id number] Admin: 03/31/21 08:18 Dose: 30 ml Documented by: [id number] Admin: 03/31/21 02:02 Dose: 30 ml Documented by: [id number] Admin: 03/30/21 21:47 Dose: 30 ml Documented by: [id number] Admin: 03/30/21 17:10 Dose: 30 ml Documented by: [id number] Admin: 03/30/21 14:19 Dose: 30 ml Documented by: [id number] Admin: 03/30/21 10:23 Dose: 30 ml Documented by: [id number] Admin: 03/30/21 06:12 Dose: 30 ml Documented by: [id number] Admin: 03/30/21 03:31 Dose: 30 ml Documented by: [id number] Admin: 03/29/21 23:55 Dose: 30 ml Documented by: [id number] Admin: 03/29/21 17:26 Dose: 30 ml Documented by: [id number] Admin: 03/29/21 13:51 Dose: 30 ml Documented by: [id number] Admin: 03/29/21 10:42 Dose: 30 ml Documented by: [id number] Admin: 03/29/21 06:04 Dose: 30 ml Documented by: [id number] Admin: 03/29/21 05:09 Dose: 30 ml Documented by: [id number] Admin: 03/29/21 02:11 Dose: 30 ml Documented by: [id number] Admin: 03/28/21 17:17 Dose: 30 ml Documented by: [id number] Admin: 03/28/21 14:37 Dose: 30 ml Documented by: [id number] Discontinued Medications Acetaminophen (Acetaminophen 325 Mg Tab) 650 mg PO Q4H PRN PRN Reason: Pain or Fever Stop: 04/19/21 16:45 Last Admin: 04/02/21 06:23 Dose: 650 mg Documented by: [id number] Admin: 04/01/21 21:20 Dose: 650 mg Documented by: [id number] Admin: 03/26/21 22:08 Dose: 650 mg Documented by: [id number] Admin: 03/23/21 15:02 Dose: 650 mg Documented by: [id number] Admin: 03/23/21 08:10 Dose: 650 mg Documented by: [id number] Admin: 03/22/21 18:07 Dose: 650 mg Documented by: [id number] Admin: 03/22/21 08:31 Dose: 650 mg Documented by: [id number] Admin: 03/21/21 13:07 Dose: 650 mg Documented by: [id number] Admin: 03/21/21 08:06 Dose: 650 mg Documented by: [id number] Adenosine (Adenosine Iv Soln 3 Mg/Ml 2 Ml Vial) Confirm Administered Dose 18 mg IV .STK-MED ONE Stop: 04/07/21 19:43 Last Admin: 04/07/21 21:13 Dose: Not Given Documented by: [id number] Adenosine (Adenosine Iv Soln 3 Mg/Ml 2 Ml Vial) Confirm Administered Dose 6 mg IV .STK-MED ONE Stop: 04/07/21 19:53 Last Admin: 04/07/21 21:13 Dose: Not Given Documented by: [id number] Adenosine (Adenosine Iv Soln 3 Mg/Ml 2 Ml Vial) 6 mg IV NOW STA Stop: 04/07/21 20:45 Last Admin: 04/07/21 20:53 Dose: 6 mg Documented by: [id number] Adenosine (Adenosine Iv Soln 3 Mg/Ml 2 Ml Vial) 12 mg IV NOW STA Stop: 04/07/21 20:46 Last Admin: 04/07/21 20:53 Dose: 12 mg Documented by: [id number] Adenosine (Adenosine Iv Soln 3 Mg/Ml 2 Ml Vial) 12 mg IV NOW STA Stop: 04/07/21 20:46 Last Admin: 04/07/21 20:53 Dose: 12 mg Documented by: [id number] Albuterol (Ipratropium [place]/Albuterol Respimat Inh) 2 puffs INH NOW STA Stop: 03/20/21 12:58 Last Admin: 03/20/21 13:18 Dose: 2 puffs Documented by: [id number] Amiodarone HCl/Dextrose (Amiodarone 150mg / 100ml D5w) Confirm Administered Dose 150 mg IV .STK-[employer] ONE Stop: 04/07/21 20:01 Last Admin: 04/07/21 21:15 Dose: Not Given Documented by: [id number] Amiodarone HCl/Dextrose (Amiodarone 150mg / 100ml D5w) Confirm Administered Dose 150 mg IV .[employer] ONE Stop: 04/07/21 20:07 Last Admin: 04/07/21 21:15 Dose: Not Given Documented by: [id number] Amiodarone HCl/Dextrose (Amiodarone 150mg / 100ml D5w) Confirm Administered Dose 150 mg IV .[employer] ONE Stop: 04/07/21 20:44 Last Admin: 04/07/21 21:12 Dose: Not Given Documented by: [id number] Azithromycin (Azithromycin 250 Mg Tab) 500 mg PO DAILY [facility]; Protocol Stop: 03/26/21 08:59 Last Admin: 03/25/21 07:25 Dose: 500 mg Documented by: [id number] Admin: 03/24/21 08:25 Dose: 500 mg Documented by: [id number] Benzonatate (Benzonatate 100 Mg Capsule) 100 mg PO TID [facility] Stop: 04/20/21 08:59 Last Admin: 03/28/21 06:50 Dose: Not Given Documented by: [id number] Admin: 03/26/21 22:08 Dose: 100 mg Documented by: [id number] Admin: 03/26/21 13:37 Dose: 100 mg Documented by: [id number] Admin: 03/26/21 08:25 Dose: 100 mg Documented by: [id number] Admin: 03/25/21 22:10 Dose: 100 mg Documented by: [id number] Admin: 03/25/21 15:25 Dose: 100 mg Documented by: [id number] Admin: 03/25/21 07:25 Dose: 100 mg Documented by: [id number] Admin: 03/24/21 21:42 Dose: 100 mg Documented by: [id number] Admin: 03/24/21 12:53 Dose: 100 mg Documented by: [id number] Admin: 03/24/21 08:24 Dose: 100 mg Documented by: [id number] Admin: 03/23/21 20:53 Dose: 100 mg Documented by: [id number] Admin: 03/23/21 15:02 Dose: 100 mg Documented by: [id number] Admin: 03/23/21 08:10 Dose: 100 mg Documented by: [id number] Admin: 03/22/21 21:16 Dose: 100 mg Documented by: [id number] Admin: 03/22/21 14:26 Dose: 100 mg Documented by: [id number] Admin: 03/22/21 08:31 Dose: 100 mg Documented by: [id number] Admin: 03/21/21 20:26 Dose: 100 mg Documented by: [id number] Admin: 03/21/21 15:01 Dose: 100 mg Documented by: [id number] Admin: 03/21/21 08:13 Dose: 100 mg Documented by: [id number] Cisatracurium Besylate (Cisatracurium Besylate Iv Soln 2 Mg/Ml 10 Ml Vial) 14.6 mg 0.2 mg/kg (14.6 mg) IV ONCE STA Stop: 03/27/21 08:28 Last Admin: 03/27/21 11:02 Dose: 14.6 mg Documented by: [id number] Dexamethasone Sodium Phosphate (DexamethasonePf 10 Mg/Ml Vial) 10 mg IV NOW ONE Stop: 03/20/21 12:57 Last Admin: 03/20/21 13:16 Dose: 10 mg Documented by: [id number] Dextrose (Dextrose 50% 50 Ml Syringe) 50 ml IV NOW STA Stop: 03/28/21 08:03 Last Admin: 03/28/21 08:41 Dose: 50 ml Documented by: [id number] Enoxaparin Sodium (Enoxaparin Inj 60 Mg/0.6 Ml Syr) 60 mg SQ Q12H MARCIA Stop: 04/19/21 16:59 Last Admin: 04/01/21 09:48 Dose: Not Given Documented by: [id number] Admin: 03/31/21 19:32 Dose: Not Given Documented by: [id number] Admin: 03/31/21 08:21 Dose: 60 mg Documented by: [id number] Admin: 03/30/21 20:37 Dose: 60 mg Documented by: [id number] Admin: 03/30/21 07:55 Dose: 60 mg Documented by: [id number] Admin: 03/29/21 20:07 Dose: 60 mg Documented by: [id number] Admin: 03/29/21 07:16 Dose: 60 mg Documented by: [id number] Admin: 03/28/21 20:16 Dose: 60 mg Documented by: [id number] Admin: 03/28/21 08:39 Dose: 60 mg Documented by: [id number] Admin: 03/26/21 08:26 Dose: 60 mg Documented by: [id number] Admin: 03/25/21 22:09 Dose: 60 mg Documented by: [id number] Admin: 03/25/21 07:24 Dose: 60 mg Documented by: [id number] Admin: 03/24/21 21:42 Dose: 60 mg Documented by: [id number] Admin: 03/24/21 08:25 Dose: 60 mg Documented by: [id number] Admin: 03/23/21 20:53 Dose: 60 mg Documented by: [id number] Admin: 03/23/21 08:11 Dose: 60 mg Documented by: [id number] Admin: 03/22/21 21:17 Dose: 60 mg Documented by: [id number] Admin: 03/22/21 08:32 Dose: 60 mg Documented by: [id number] Admin: 03/21/21 20:27 Dose: 60 mg Documented by: [id number] Admin: 03/21/21 08:05 Dose: 60 mg Documented by: [id number] Admin: 03/20/21 20:45 Dose: 60 mg Documented by: [id number] Enoxaparin Sodium (Enoxaparin Inj 40 Mg/0.4 Ml Syr) 40 mg SQ Q12 MARCIA Stop: 05/01/21 20:59 Last Admin: 04/07/21 21:09 Dose: 40 mg Documented by: [id number] Admin: 04/07/21 08:18 Dose: 40 mg Documented by: [id number] Admin: 04/06/21 20:14 Dose: 40 mg Documented by: [id number] Admin: 04/06/21 07:42 Dose: 40 mg Documented by: [id number] Admin: 04/05/21 20:25 Dose: 40 mg Documented by: [id number] Admin: 04/05/21 09:03 Dose: 40 mg Documented by: [id number] Admin: 04/04/21 20:06 Dose: 40 mg Documented by: [id number] Admin: 04/04/21 08:05 Dose: 40 mg Documented by: [id number] Admin: 04/03/21 20:09 Dose: 40 mg Documented by: [id number] Admin: 04/03/21 07:36 Dose: 40 mg Documented by: [id number] Admin: 04/02/21 19:59 Dose: 40 mg Documented by: [id number] Admin: 04/02/21 08:41 Dose: 40 mg Documented by: [id number] Admin: 04/01/21 20:32 Dose: 40 mg Documented by: [id number] Famotidine (Famotidine 20 Mg Tab) 20 mg PO BID MARCIA; Protocol Stop: 04/22/21 20:59 Last Admin: 03/28/21 07:41 Dose: 20 mg Documented by: [id number] Admin: 03/27/21 21:38 Dose: Not Given Documented by: [id number] Admin: 03/27/21 11:51 Dose: 20 mg Documented by: [id number] Admin: 03/26/21 22:08 Dose: 20 mg Documented by: [id number] Admin: 03/26/21 08:26 Dose: 20 mg Documented by: [id number] Admin: 03/25/21 22:10 Dose: 20 mg Documented by: [id number] Admin: 03/25/21 07:24 Dose: 20 mg Documented by: [id number] Admin: 03/24/21 21:42 Dose: 20 mg Documented by: [id number] Admin: 03/24/21 08:25 Dose: 20 mg Documented by: [id number] Admin: 03/23/21 20:53 Dose: 20 mg Documented by: [id number] Fentanyl Citrate (Fentanyl Citrate 1250mcg/250ml Nss) Confirm Administered Dose 1,250 mcg IV .STK-MED ONE Stop: 03/27/21 08:39 Last Admin: 03/27/21 11:05 Dose: Not Given Documented by: [id number] Fentanyl Citrate (Fentanyl Bolus From Bag) 100 mcg IV NOW STA Stop: 04/06/21 01:35 Last Admin: 04/06/21 01:38 Dose: 100 mcg Documented by: [id number] Furosemide (Furosemide 40 Mg/4 Ml Vial) 40 mg IV NOW STA Stop: 03/20/21 16:12 Last Admin: 03/20/21 16:50 Dose: 40 mg Documented by: [id number] Furosemide (Furosemide 40 Mg/4 Ml Vial) 40 mg IV 0800 ONE Stop: 03/21/21 08:01 Last Admin: 03/21/21 08:04 Dose: 40 mg Documented by: [id number] Furosemide (Furosemide 40 Mg/4 Ml Vial) 40 mg IV ONE ONE Stop: 03/23/21 08:46 Last Admin: 03/23/21 09:44 Dose: 40 mg Documented by: [id number] Furosemide (Furosemide 40 Mg/4 Ml Vial) 40 mg IV ONE ONE Stop: 03/24/21 00:46 Last Admin: 03/24/21 00:54 Dose: 40 mg Documented by: [id number] Furosemide (Furosemide 40 Mg/4 Ml Vial) Confirm Administered Dose 40 mg IV .[employer] ONE Stop: 03/25/21 07:38 Last Admin: 03/25/21 07:38 Dose: Not Given Documented by: [id number] Furosemide (Furosemide 40 Mg/4 Ml Vial) 40 mg IV ONE ONE Stop: 03/25/21 07:46 Last Admin: 03/25/21 07:42 Dose: 40 mg Documented by: [id number] Furosemide (Furosemide 40 Mg/4 Ml Vial) 20 mg IV 1300 ONE Stop: 03/29/21 13:01 Last Admin: 03/29/21 13:50 Dose: 20 mg Documented by: [id number] Furosemide (Furosemide 40 Mg/4 Ml Vial) 20 mg IV 1915 ONE Stop: 03/31/21 19:16 Last Admin: 03/31/21 19:48 Dose: 20 mg Documented by: [id number] Furosemide (Furosemide 40 Mg/4 Ml Vial) 20 mg IV NOW ONE Stop: 04/01/21 19:31 Last Admin: 04/01/21 19:50 Dose: 20 mg Documented by: [id number] Furosemide (Furosemide 40 Mg/4 Ml Vial) 40 mg IV ONE ONE Stop: 04/06/21 03:46 Last Admin: 04/06/21 03:45 Dose: 40 mg Documented by: [id number] Furosemide (Furosemide 40 Mg/4 Ml Vial) Confirm Administered Dose 40 mg IV .STK- MED ONE Stop: 04/06/21 03:35 Last Admin: 04/06/21 03:34 Dose: 40 mg Documented by: [id number] Gabapentin (Gabapentin 250 Mg/5 Ml 470 Ml Btl) 100 mg PO BID MARCIA Stop: 04/02/21 10:00 Last Admin: 04/02/21 08:45 Dose: 100 mg Documented by: [id number] Admin: 04/01/21 20:35 Dose: 100 mg Documented by: [id number] Gabapentin (Gabapentin 250 Mg/5 Ml 470 Ml Btl) 100 mg PO TID MARCIA Stop: 05/02/21 13:59 Last Admin: 04/09/21 10:30 Dose: Not Given Documented by: [id number] Admin: 04/08/21 20:11 Dose: 100 mg Documented by: [id number] Admin: 04/08/21 13:27 Dose: 100 mg Documented by: [id number] Admin: 04/08/21 08:16 Dose: 100 mg Documented by: [id number] Admin: 04/07/21 21:10 Dose: 100 mg Documented by: [id number] Admin: 04/07/21 13:11 Dose: 100 mg Documented by: [id number] Admin: 04/07/21 08:19 Dose: 100 mg Documented by: [id number] Admin: 04/06/21 20:13 Dose: 100 mg Documented by: [id number] Admin: 04/06/21 13:56 Dose: 100 mg Documented by: [id number] Admin: 04/06/21 07:42 Dose: 100 mg Documented by: [id number] Admin: 04/05/21 20:25 Dose: 100 mg Documented by: [id number] Admin: 04/05/21 15:25 Dose: 100 mg Documented by: [id number] Admin: 04/05/21 09:03 Dose: 100 mg Documented by: [id number] Admin: 04/04/21 20:06 Dose: 100 mg Documented by: [id number] Admin: 04/04/21 13:24 Dose: 100 mg Documented by: [id number] Admin: 04/04/21 09:23 Dose: 100 mg Documented by: [id number] Admin: 04/03/21 20:11 Dose: 100 mg Documented by: [id number] Admin: 04/03/21 14:40 Dose: 100 mg Documented by: [id number] Admin: 04/03/21 07:38 Dose: 100 mg Documented by: [id number] Admin: 04/02/21 19:59 Dose: 100 mg Documented by: [id number] Admin: 04/02/21 12:53 Dose: 100 mg Documented by: [id number] Gadobutrol (Gadobutrol 65ml Vial) 11.4 ml IV ONCE ONE Stop: 04/09/21 19:30 Last Admin: 04/09/21 19:30 Dose: 11.4 ml Documented by: [id number] Guaifenesin (Guaifenesin 600 Mg Tabcr) 600 mg PO NOW STA Stop: 03/20/21 12:57 Last Admin: 03/20/21 13:16 Dose: 600 mg Documented by: [id number] Guaifenesin (Guaifenesin 600 Mg Tabcr) 600 mg PO Q12 MARCIA Stop: 04/21/21 20:59 Last Admin: 03/28/21 06:51 Dose: Not Given Documented by: [id number] Admin: 03/26/21 22:08 Dose: 600 mg Documented by: [id number] Admin: 03/26/21 08:26 Dose: 600 mg Documented by: [id number] Admin: 03/25/21 22:10 Dose: 600 mg Documented by: [id number] Admin: 03/25/21 07:24 Dose: 600 mg Documented by: [id number] Admin: 03/24/21 21:42 Dose: 600 mg Documented by: [id number] Admin: 03/24/21 08:26 Dose: 600 mg Documented by: [id number] Admin: 03/23/21 20:53 Dose: 600 mg Documented by: [id number] Admin: 03/23/21 08:11 Dose: 600 mg Documented by: [id number] Admin: 03/22/21 21:24 Dose: 600 mg Documented by: [id number] Heparin Sodium/Dextrose (Heparin Iv Adult Wt-Based Standard *No* Bolus Protocol) 1 ea IV ONE ONE; Protocol Stop: 04/07/21 22:06 Last Admin: 04/07/21 23:50 Dose: Not Given Documented by: [id number] Hydralazine HCl (Hydralazine Hcl 20 Mg/Ml Vial) 10 mg IV Q6H PRN PRN Reason: SBP GREATER THAN 160 Stop: 04/29/21 07:43 Last Admin: 04/09/21 23:17 Dose: 10 mg Documented by: [id number] Admin: 04/09/21 05:34 Dose: 10 mg Documented by: [id number] Admin: 04/08/21 13:26 Dose: 10 mg Documented by: [id number] Admin: 04/07/21 08:22 Dose: 10 mg Documented by: [id number] Admin: 04/06/21 17:11 Dose: 20 mg Documented by: [id number] Admin: 04/06/21 00:51 Dose: 10 mg Documented by: [id number] Admin: 04/03/21 12:02 Dose: 10 mg Documented by: [id number] Hydralazine HCl (Hydralazine Hcl 20 Mg/Ml Vial) 10 mg IV NOW STA Stop: 04/06/21 01:37 Last Admin: 04/06/21 01:38 Dose: 10 mg Documented by: [id number] Hydrocodone Bit/Homatropine Methylb (Hydrocodone/Homatropine Syrup 5mg/1.5mg 5ml Udp) 5 ml PO Q6 PRN PRN Reason: Cough Stop: 04/04/21 07:09 Last Admin: 03/27/21 06:19 Dose: 5 ml Documented by: [id number] Admin: 03/26/21 22:08 Dose: 5 ml Documented by: [id number] Admin: 03/24/21 12:53 Dose: 5 ml Documented by: [id number] Admin: 03/24/21 06:06 Dose: 5 ml Documented by: [id number] Admin: 03/23/21 15:02 Dose: 5 ml Documented by: [id number] Admin: 03/23/21 08:10 Dose: 5 ml Documented by: [id number] Admin: 03/23/21 02:22 Dose: 5 ml Documented by: [id number] Admin: 03/22/21 18:08 Dose: 5 ml Documented by: [id number] Admin: 03/22/21 08:31 Dose: 5 ml Documented by: [id number] Admin: 03/21/21 20:32 Dose: 5 ml Documented by: [id number] Admin: 03/21/21 15:01 Dose: 5 ml Documented by: [id number] Admin: 03/21/21 08:13 Dose: 5 ml Documented by: [id number] Sodium Chloride (Nss 1000ml) 2,000 mls @ 999 mls/hr IV .Q2H1M ONE Stop: 03/20/21 14:56 Last Infusion: 03/20/21 15:27 Dose: 0 mls/hr Documented by: [id number] Admin: 03/20/21 13:16 Dose: 999 mls/hr Documented by: [id number] Acetaminophen (Ofirmev) 1,000 mg in 100 mls @ 400 mls/hr IV NOW STA Stop: 03/20/21 13:10 Last Infusion: 03/20/21 13:39 Dose: 0 mls/hr Documented by: [id number] Admin: 03/20/21 13:17 Dose: 400 mls/hr Documented by: [id number] Famotidine (Pepcid 20mg Iv Push) 20 mg in 5 mls @ 2.5 mls/min IV NOW STA Stop: 03/20/21 12:57 Last Admin: 03/20/21 13:16 Dose: 2.5 mls/min Documented by: [id number] Potassium Chloride (K Miko / Wtr) 10 meq in 100 mls @ 100 mls/hr IV Q1H STA Stop: 03/20/21 16:36 Last Infusion: 03/20/21 18:13 Dose: 0 mls/hr Documented by: [id number] Admin: 03/20/21 16:50 Dose: 100 mls/hr Documented by: [id number] Dexamethasone 6 mg/ Syringe 1.5 mls @ 1 mls/min IV DAILY MARCIA Stop: 03/31/21 08:59 Last Admin: 03/28/21 07:41 Dose: 1 mls/min Documented by: [id number] Admin: 03/27/21 11:51 Dose: 1 mls/min Documented by: [id number] Admin: 03/26/21 08:25 Dose: 1 mls/min Documented by: [id number] Admin: 03/25/21 07:32 Dose: 1 mls/min Documented by: [id number] Admin: 03/24/21 08:24 Dose: 1 mls/min Documented by: [id number] Admin: 03/23/21 08:11 Dose: 1 mls/min Documented by: [id number] Admin: 03/22/21 08:31 Dose: 1 mls/min Documented by: [id number] Admin: 03/21/21 08:04 Dose: 1 mls/min Documented by: [id number] Potassium Chloride (K Miko / Wtr) 10 meq in 100 mls @ 100 mls/hr IV Q1H MARCIA Stop: 03/21/21 10:59 Last Infusion: 03/21/21 11:28 Dose: 0 mls/hr Documented by: [id number] Admin: 03/21/21 10:15 Dose: 100 mls/hr Documented by: [id number] Infusion: 03/21/21 10:09 Dose: 100 mls/hr Documented by: [id number] Admin: 03/21/21 09:09 Dose: 100 mls/hr Documented by: [id number] Infusion: 03/21/21 09:04 Dose: 100 mls/hr Documented by: [id number] Admin: 03/21/21 08:04 Dose: 100 mls/hr Documented by: [id number] Ceftriaxone Sodium 2,000 mg/ (Dextrose) 70 mls @ 100 mls/hr IV DAILY MARCIA; Protocol Stop: 03/28/21 08:59 Last Infusion: 03/25/21 08:15 Dose: 0 mls/hr Documented by: [id number] Admin: 03/25/21 07:32 Dose: 100 mls/hr Documented by: [id number] Infusion: 03/24/21 09:38 Dose: 0 mls/hr Documented by: [id number] Admin: 03/24/21 08:24 Dose: 100 mls/hr Documented by: [id number] Infusion: 03/23/21 09:00 Dose: 0 mls/hr Documented by: [id number] Admin: 03/23/21 08:11 Dose: 100 mls/hr Documented by: [id number] Infusion: 03/22/21 09:22 Dose: 0 mls/hr Documented by: [id number] Admin: 03/22/21 08:31 Dose: 100 mls/hr Documented by: [id number] Infusion: 03/21/21 10:37 Dose: 0 mls/hr Documented by: [id number] Admin: 03/21/21 09:39 Dose: 100 mls/hr Documented by: [id number] Azithromycin 500 mg/ Dextrose 255 mls @ 125 mls/hr IV DAILY@1000 MARCIA Stop: 03/28/21 09:59 Last Infusion: 03/23/21 10:47 Dose: 0 mls/hr Documented by: [id number] Admin: 03/23/21 09:01 Dose: 125 mls/hr Documented by: [id number] Infusion: 03/22/21 11:44 Dose: 0 mls/hr Documented by: [id number] Admin: 03/22/21 09:25 Dose: 125 mls/hr Documented by: [id number] Infusion: 03/21/21 12:37 Dose: 0 mls/hr Documented by: [id number] Admin: 03/21/21 10:32 Dose: 125 mls/hr Documented by: [id number] Tocilizumab 400 mg/Tocilizumab 400 mg/ Sodium Chloride 100 mls @ 100 mls/hr IV NOW ONE Stop: 03/21/21 10:59 Last Infusion: 03/21/21 11:38 Dose: 0 mls/hr Documented by: [id number] Admin: 03/21/21 10:32 Dose: 100 mls/hr Documented by: [id number] Famotidine 20 mg/ Syringe 5 mls @ 2.5 mls/min IV BID MARCIA Stop: 04/20/21 11:59 Last Admin: 03/23/21 08:11 Dose: 2.5 mls/min Documented by: [id number] Admin: 03/22/21 21:24 Dose: 2.5 mls/min Documented by: [id number] Admin: 03/22/21 08:31 Dose: 2.5 mls/min Documented by: [id number] Admin: 03/21/21 20:28 Dose: 2.5 mls/min Documented by: [id number] Admin: 03/21/21 13:07 Dose: 2.5 mls/min Documented by: [id number] Cisatracurium Besylate 40 mg/ (Sodium Chloride) 100 mls @ 0 mls/hr IV .Q0M MARCIA; Protocol Stop: 04/26/21 08:59 Last Titration: 04/03/21 07:00 Dose: 0 mcg/kg/min, 0 mls/hr Documented by: [id number] Admin: 03/31/21 10:51 Dose: Not Given Documented by: [id number] Admin: 03/31/21 10:51 Dose: Not Given Documented by: [id number] Titration: 03/31/21 10:50 Dose: 0 mcg/kg/min, 0 mls/hr Documented by: [id number] Titration: 03/31/21 10:09 Dose: 0 mcg/kg/min, 0 mls/hr Documented by: [id number] Titration: 03/31/21 09:00 Dose: 1 mcg/kg/min, 11 mls/hr Documented by: [id number] Titration: 03/31/21 08:30 Dose: 2 mcg/kg/min, 21.9 mls/hr Documented by: [id number] Admin: 03/31/21 08:27 Dose: 3 mcg/kg/min, 32.9 mls/hr Documented by: [id number] Cosigned by: [id number] Titration: 03/31/21 07:26 Dose: 3 mcg/kg/min, 32.9 mls/hr Documented by: [id number] Cosigned by: [id number] Titration: 03/31/21 07:22 Dose: 3 mcg/kg/min, 32.9 mls/hr Documented by: [id number] Cosigned by: [id number] Titration: 03/31/21 06:15 Dose: 3 mcg/kg/min, 32.9 mls/hr Documented by: [id number] Titration: 03/31/21 05:38 Dose: 2 mcg/kg/min, 21.9 mls/hr Documented by: [id number] Admin: 03/31/21 03:08 Dose: 1.75 mcg/kg/min, 19.2 mls/hr Documented by: [id number] Cosigned by: [id number] Titration: 03/31/21 03:08 Dose: 1.75 mcg/kg/min, 19.2 mls/hr Documented by: [id number] Cosigned by: [id number] Admin: 03/30/21 21:55 Dose: 1.75 mcg/kg/min, 19.2 mls/hr Documented by: [id number] Cosigned by: [id number] Titration: 03/30/21 21:55 Dose: 1.75 mcg/kg/min, 19.2 mls/hr Documented by: [id number] Cosigned by: [id number] Titration: 03/30/21 19:13 Dose: 1.75 mcg/kg/min, 19.2 mls/hr Documented by: [id number] Cosigned by: [id number] Admin: 03/30/21 17:10 Dose: 1.75 mcg/kg/min, 19.2 mls/hr Documented by: [id number] Cosigned by: [id number] Titration: 03/30/21 17:10 Dose: 1.75 mcg/kg/min, 19.2 mls/hr Documented by: [id number] Cosigned by: [id number] Titration: 03/30/21 16:17 Dose: 1.75 mcg/kg/min, 19.2 mls/hr Documented by: [id number] Admin: 03/30/21 14:16 Dose: Not Given Documented by: [id number] Admin: 03/30/21 14:16 Dose: Not Given Documented by: [id number] Admin: 03/30/21 14:16 Dose: Not Given Documented by: [id number] Admin: 03/30/21 14:16 Dose: Not Given Documented by: [id number] Titration: 03/30/21 12:19 Dose: 1 mcg/kg/min, 11 mls/hr Documented by: [id number] Titration: 03/30/21 12:12 Dose: 0.09 mcg/kg/min, 1 mls/hr Documented by: [id number] Titration: 03/30/21 11:01 Dose: 1.75 mcg/kg/min, 19.2 mls/hr Documented by: [id number] Titration: 03/30/21 10:24 Dose: 2 mcg/kg/min, 21.9 mls/hr Documented by: [id number] Cosigned by: [id number] Admin: 03/30/21 10:24 Dose: 2 mcg/kg/min, 21.9 mls/hr Documented by: [id number] Cosigned by: [id number] Titration: 03/30/21 09:30 Dose: 2 mcg/kg/min, 21.9 mls/hr Documented by: [id number] Titration: 03/30/21 08:37 Dose: 0 mcg/kg/min, 0 mls/hr Documented by: [id number] Titration: 03/30/21 07:19 Dose: 1.75 mcg/kg/min, 19.2 mls/hr Documented by: [id number] Cosigned by: [id number] Admin: 03/30/21 05:35 Dose: 1.75 mcg/kg/min, 19.2 mls/hr Documented by: [id number] Cosigned by: [id number] Titration: 03/30/21 05:35 Dose: 1.75 mcg/kg/min, 19.2 mls/hr Documented by: [id number] Cosigned by: [id number] Admin: 03/30/21 00:23 Dose: 1.75 mcg/kg/min, 19.2 mls/hr Documented by: [id number] Cosigned by: [id number] Titration: 03/30/21 00:23 Dose: 1.75 mcg/kg/min, 19.2 mls/hr Documented by: [id number] Cosigned by: [id number] Admin: 03/29/21 19:27 Dose: 1.75 mcg/kg/min, 19.2 mls/hr Documented by: [id number] Cosigned by: [id number] Titration: 03/29/21 19:05 Dose: 1.75 mcg/kg/min, 19.2 mls/hr Documented by: [id number] Cosigned by: [id number] Titration: 03/29/21 19:01 Dose: 1.75 mcg/kg/min, 19.2 mls/hr Documented by: [id number] Cosigned by: [id number] Admin: 03/29/21 13:52 Dose: 1.75 mcg/kg/min, 19.2 mls/hr Documented by: [id number] Cosigned by: [id number] Titration: 03/29/21 13:52 Dose: 1.75 mcg/kg/min, 19.2 mls/hr Documented by: [id number] Cosigned by: [id number] Admin: 03/29/21 13:25 Dose: Not Given Documented by: [id number] Titration: 03/29/21 12:47 Dose: 1.75 mcg/kg/min, 19.2 mls/hr Documented by: [id number] Admin: 03/29/21 11:52 Dose: 1.75 mcg/kg/min, 19.2 mls/hr Documented by: [id number] Cosigned by: [id number] Admin: 03/29/21 09:37 Dose: Not Given Documented by: [id number] Titration: 03/29/21 08:19 Dose: 0 mcg/kg/min, 0 mls/hr Documented by: [id number] Admin: 03/29/21 07:16 Dose: 1.7 mcg/kg/min, 18.6 mls/hr Documented by: [id number] Cosigned by: [id number] Titration: 03/29/21 07:10 Dose: 1.7 mcg/kg/min, 18.6 mls/hr Documented by: [id number] Cosigned by: [id number] Titration: 03/29/21 07:00 Dose: 1.7 mcg/kg/min, 18.6 mls/hr Documented by: [id number] Cosigned by: [id number] Titration: 03/29/21 06:01 Dose: 1.7 mcg/kg/min, 18.6 mls/hr Documented by: [id number] Admin: 03/29/21 01:55 Dose: 1.75 mcg/kg/min, 19.2 mls/hr Documented by: [id number] Cosigned by: [id number] Titration: 03/29/21 01:53 Dose: 1.75 mcg/kg/min, 19.2 mls/hr Documented by: [id number] Cosigned by: [id number] Admin: 03/28/21 20:40 Dose: 1.75 mcg/kg/min, 19.2 mls/hr Documented by: [id number] Cosigned by: [id number] Titration: 03/28/21 20:22 Dose: 1.75 mcg/kg/min, 19.2 mls/hr Documented by: [id number] Cosigned by: [id number] Titration: 03/28/21 18:51 Dose: 1.75 mcg/kg/min, 19.2 mls/hr Documented by: [id number] Cosigned by: [id number] Admin: 03/28/21 17:30 Dose: Not Given Documented by: [id number] Admin: 03/28/21 15:09 Dose: 1.75 mcg/kg/min, 19.2 mls/hr Documented by: [id number] Cosigned by: [id number] Titration: 03/28/21 15:09 Dose: 1.75 mcg/kg/min, 19.2 mls/hr Documented by: [id number] Cosigned by: [id number] Titration: 03/28/21 15:00 Dose: 1.75 mcg/kg/min, 19.2 mls/hr Documented by: [id number] Titration: 03/28/21 11:57 Dose: 2 mcg/kg/min, 21.9 mls/hr Documented by: [id number] Admin: 03/28/21 11:28 Dose: 1.5 mcg/kg/min, 16.4 mls/hr Documented by: [id number] Cosigned by: [id number] Titration: 03/28/21 11:28 Dose: 1.5 mcg/kg/min, 16.4 mls/hr Documented by: [id number] Cosigned by: [id number] Admin: 03/28/21 09:10 Dose: Not Given Documented by: [id number] Admin: 03/28/21 07:41 Dose: Not Given Documented by: [id number] Titration: 03/28/21 05:49 Dose: 1.5 mcg/kg/min, 16.4 mls/hr Documented by: [id number] Admin: 03/28/21 05:37 Dose: 1.2 mcg/kg/min, 13.1 mls/hr Documented by: [id number] Cosigned by: [id number] Titration: 03/28/21 05:37 Dose: 1.2 mcg/kg/min, 13.1 mls/hr Documented by: [id number] Cosigned by: [id number] Titration: 03/27/21 22:38 Dose: 1.2 mcg/kg/min, 13.1 mls/hr Documented by: [id number] Cosigned by: [id number] Admin: 03/27/21 22:38 Dose: 1.2 mcg/kg/min, 13.1 mls/hr Documented by: [id number] Cosigned by: [id number] Titration: 03/27/21 20:44 Dose: 1.2 mcg/kg/min, 13.1 mls/hr Documented by: [id number] Titration: 03/27/21 15:49 Dose: 1 mcg/kg/min, 11 mls/hr Documented by: [id number] Admin: 03/27/21 13:51 Dose: 0.5 mcg/kg/min, 5.5 mls/hr Documented by: [id number] Cosigned by: [id number] Titration: 03/27/21 13:51 Dose: 0.75 mcg/kg/min, 8.2 mls/hr Documented by: [id number] Cosigned by: [id number] Titration: 03/27/21 11:51 Dose: 0.75 mcg/kg/min, 8.2 mls/hr Documented by: [id number] Admin: 03/27/21 09:30 Dose: 1 mcg/kg/min, 11 mls/hr Documented by: [id number] Cosigned by: [id number] Midazolam HCl (Versed) 125 mg in 250 mls @ 10 mls/hr IV .Q25H [facility]; Protocol Stop: 04/26/21 08:29 Last Titration: 03/28/21 09:10 Dose: 0 mg/hr, 0 mls/hr Documented by: [id number] Cosigned by: [id number] Admin: 03/27/21 23:02 Dose: 5 mg/hr, 10 mls/hr Documented by: [id number] Cosigned by: [id number] Titration: 03/27/21 23:02 Dose: 5 mg/hr, 10 mls/hr Documented by: [id number] Cosigned by: [id number] Titration: 03/27/21 20:44 Dose: 5 mg/hr, 10 mls/hr Documented by: [id number] Cosigned by: [id number] Titration: 03/27/21 19:05 Dose: 7 mg/hr, 14 mls/hr Documented by: [id number] Cosigned by: [id number] Titration: 03/27/21 17:52 Dose: 7 mg/hr, 14 mls/hr Documented by: [id number] Cosigned by: [id number] Titration: 03/27/21 09:30 Dose: 8 mg/hr, 16 mls/hr Documented by: [id number] Cosigned by: [id number] Titration: 03/27/21 08:30 Dose: 6 mg/hr, 12 mls/hr Documented by: [id number] Cosigned by: [id number] Titration: 03/27/21 08:10 Dose: 4 mg/hr, 8 mls/hr Documented by: [id number] Cosigned by: [id number] Admin: 03/27/21 07:50 Dose: 2 mg/hr, 4 mls/hr Documented by: [id number] Cosigned by: [id number] Fentanyl Citrate (Fentanyl Drip) 1,250 mcg in 250 mls @ 40 mls/hr IV .Q6H15M [facility]; Protocol Stop: 04/10/21 10:05 Last Admin: 04/03/21 10:09 Dose: Not Given Documented by: [id number] Admin: 04/03/21 05:11 Dose: Not Given Documented by: [id number] Titration: 04/03/21 00:24 Dose: 0 mcg/hr, 0 mls/hr Documented by: [id number] Cosigned by: [id number] Titration: 04/02/21 19:09 Dose: 200 mcg/hr, 40 mls/hr Documented by: [id number] Cosigned by: [id number] Admin: 04/02/21 18:09 Dose: 200 mcg/hr, 40 mls/hr Documented by: [id number] Cosigned by: [id number] Titration: 04/02/21 18:09 Dose: 200 mcg/hr, 40 mls/hr Documented by: [id number] Cosigned by: [id number] Admin: 04/02/21 12:15 Dose: 200 mcg/hr, 40 mls/hr Documented by: [id number] Cosigned by: [id number] Titration: 04/02/21 10:39 Dose: 200 mcg/hr, 40 mls/hr Documented by: [id number] Cosigned by: [id number] Admin: 04/02/21 09:30 Dose: Not Given Documented by: [id number] Admin: 04/02/21 09:30 Dose: Not Given Documented by: [id number] Admin: 04/02/21 09:30 Dose: Not Given Documented by: [id number] Titration: 04/02/21 08:43 Dose: 200 mcg/hr, 40 mls/hr Documented by: [id number] Cosigned by: [id number] Admin: 04/02/21 07:30 Dose: Not Given Documented by: [id number] Titration: 04/02/21 07:07 Dose: 225 mcg/hr, 45 mls/hr Documented by: [id number] Cosigned by: [id number] Admin: 04/02/21 04:52 Dose: 225 mcg/hr, 45 mls/hr Documented by: [id number] Cosigned by: [id number] Titration: 04/02/21 04:42 Dose: 225 mcg/hr, 45 mls/hr Documented by: [id number] Cosigned by: [id number] Admin: 04/01/21 23:08 Dose: 225 mcg/hr, 45 mls/hr Documented by: [id number] Cosigned by: [id number] Titration: 04/01/21 23:00 Dose: 225 mcg/hr, 45 mls/hr Documented by: [id number] Cosigned by: [id number] Titration: 04/01/21 21:33 Dose: 225 mcg/hr, 45 mls/hr Documented by: [id number] Cosigned by: [id number] Titration: 04/01/21 20:56 Dose: 200 mcg/hr, 40 mls/hr Documented by: [id number] Cosigned by: [id number] Admin: 04/01/21 20:00 Dose: Not Given Documented by: [id number] Titration: 04/01/21 19:00 Dose: 175 mcg/hr, 35 mls/hr Documented by: [id number] Cosigned by: [id number] Titration: 04/01/21 18:53 Dose: 150 mcg/hr, 30 mls/hr Documented by: [id number] Cosigned by: [id number] Admin: 04/01/21 15:55 Dose: 150 mcg/hr, 30 mls/hr Documented by: [id number] Cosigned by: [id number] Titration: 04/01/21 15:55 Dose: 150 mcg/hr, 30 mls/hr Documented by: [id number] Cosigned by: [id number] Admin: 04/01/21 10:49 Dose: Not Given Documented by: [id number] Admin: 04/01/21 08:13 Dose: 150 mcg/hr, 30 mls/hr Documented by: [id number] Cosigned by: [id number] Titration: 04/01/21 07:35 Dose: 150 mcg/hr, 30 mls/hr Documented by: [id number] Cosigned by: [id number] Titration: 04/01/21 07:07 Dose: 150 mcg/hr, 30 mls/hr Documented by: [id number] Cosigned by: [id number] Admin: 04/01/21 05:31 Dose: Not Given Documented by: [id number] Titration: 04/01/21 05:03 Dose: 150 mcg/hr, 30 mls/hr Documented by: [id number] Cosigned by: [id number] Admin: 04/01/21 00:04 Dose: 175 mcg/hr, 35 mls/hr Documented by: [id number] Cosigned by: [id number] Titration: 04/01/21 00:04 Dose: 175 mcg/hr, 35 mls/hr Documented by: [id number] Cosigned by: [id number] Admin: 03/31/21 19:37 Dose: Not Given Documented by: [id number] Admin: 03/31/21 19:36 Dose: Not Given Documented by: [id number] Titration: 03/31/21 19:00 Dose: 175 mcg/hr, 35 mls/hr Documented by: [id number] Cosigned by: [id number] Admin: 03/31/21 17:58 Dose: 175 mcg/hr, 35 mls/hr Documented by: [id number] Cosigned by: [id number] Titration: 03/31/21 17:17 Dose: 175 mcg/hr, 35 mls/hr Documented by: [id number] Cosigned by: [id number] Admin: 03/31/21 10:08 Dose: 175 mcg/hr, 35 mls/hr Documented by: [id number] Cosigned by: [id number] Titration: 03/31/21 10:06 Dose: 175 mcg/hr, 35 mls/hr Documented by: [id number] Cosigned by: [id number] Titration: 03/31/21 09:30 Dose: 150 mcg/hr, 30 mls/hr Documented by: [id number] Cosigned by: [id number] Titration: 03/31/21 09:00 Dose: 125 mcg/hr, 25 mls/hr Documented by: [id number] Cosigned by: [id number] Titration: 03/31/21 08:30 Dose: 100 mcg/hr, 20 mls/hr Documented by: [id number] Cosigned by: [id number] Admin: 03/31/21 08:16 Dose: Not Given Documented by: [id number] Titration: 03/31/21 07:22 Dose: 75 mcg/hr, 15 mls/hr Documented by: [id number] Cosigned by: [id number] Titration: 03/31/21 01:53 Dose: 75 mcg/hr, 15 mls/hr Documented by: [id number] Cosigned by: [id number] Titration: 03/31/21 00:43 Dose: 100 mcg/hr, 20 mls/hr Documented by: [id number] Cosigned by: [id number] Titration: 03/30/21 23:41 Dose: 125 mcg/hr, 25 mls/hr Documented by: [id number] Cosigned by: [id number] Titration: 03/30/21 22:46 Dose: 175 mcg/hr, 35 mls/hr Documented by: [id number] Cosigned by: [id number] Titration: 03/30/21 21:44 Dose: 200 mcg/hr, 40 mls/hr Documented by: [id number] Cosigned by: [id number] Titration: 03/30/21 20:41 Dose: 225 mcg/hr, 45 mls/hr Documented by: [id number] Cosigned by: [id number] Admin: 03/30/21 20:38 Dose: 250 mcg/hr, 50 mls/hr Documented by: [id number] Cosigned by: [id number] Titration: 03/30/21 20:07 Dose: 250 mcg/hr, 50 mls/hr Documented by: [id number] Cosigned by: [id number] Titration: 03/30/21 19:13 Dose: 250 mcg/hr, 50 mls/hr Documented by: [id number] Cosigned by: [id number] Admin: 03/30/21 15:07 Dose: 250 mcg/hr, 50 mls/hr Documented by: [id number] Cosigned by: [id number] Titration: 03/30/21 15:07 Dose: 250 mcg/hr, 50 mls/hr Documented by: [id number] Cosigned by: [id number] Admin: 03/30/21 10:23 Dose: 250 mcg/hr, 50 mls/hr Documented by: [id number] Cosigned by: [id number] Titration: 03/30/21 10:23 Dose: 250 mcg/hr, 50 mls/hr Documented by: [id number] Cosigned by: [id number] Titration: 03/30/21 07:19 Dose: 250 mcg/hr, 50 mls/hr Documented by: [id number] Cosigned by: [id number] Admin: 03/30/21 05:37 Dose: 250 mcg/hr, 50 mls/hr Documented by: [id number] Cosigned by: [id number] Titration: 03/30/21 05:37 Dose: 250 mcg/hr, 50 mls/hr Documented by: [id number] Cosigned by: [id number] Admin: 03/30/21 01:20 Dose: 250 mcg/hr, 50 mls/hr Documented by: [id number] Cosigned by: [id number] Titration: 03/30/21 00:47 Dose: 250 mcg/hr, 50 mls/hr Documented by: [id number] Cosigned by: [id number] Admin: 03/29/21 19:47 Dose: 250 mcg/hr, 50 mls/hr Documented by: [id number] Cosigned by: [id number] Titration: 03/29/21 19:40 Dose: 250 mcg/hr, 50 mls/hr Documented by: [id number] Cosigned by: [id number] Titration: 03/29/21 19:01 Dose: 250 mcg/hr, 50 mls/hr Documented by: [id number] Cosigned by: [id number] Admin: 03/29/21 14:40 Dose: 250 mcg/hr, 50 mls/hr Documented by: [id number] Cosigned by: [id number] Titration: 03/29/21 14:40 Dose: 200 mcg/hr, 40 mls/hr Documented by: [id number] Cosigned by: [id number] Admin: 03/29/21 13:51 Dose: Not Given Documented by: [id number] Admin: 03/29/21 13:26 Dose: Not Given Documented by: [id number] Titration: 03/29/21 13:26 Dose: 200 mcg/hr, 40 mls/hr Documented by: [id number] Cosigned by: [id number] Admin: 03/29/21 13:25 Dose: Not Given Documented by: [id number] Titration: 03/29/21 12:47 Dose: 250 mcg/hr, 50 mls/hr Documented by: [id number] Cosigned by: [id number] Titration: 03/29/21 10:38 Dose: 300 mcg/hr, 60 mls/hr Documented by: [id number] Cosigned by: [id number] Titration: 03/29/21 10:28 Dose: 250 mcg/hr, 50 mls/hr Documented by: [id number] Cosigned by: [id number] Admin: 03/29/21 10:28 Dose: 250 mcg/hr, 50 mls/hr Documented by: [id number] Cosigned by: [id number] Titration: 03/29/21 09:36 Dose: 250 mcg/hr, 50 mls/hr Documented by: [id number] Cosigned by: [id number] Titration: 03/29/21 07:00 Dose: 200 mcg/hr, 40 mls/hr Documented by: [id number] Cosigned by: [id number] Admin: 03/29/21 05:06 Dose: 200 mcg/hr, 40 mls/hr Documented by: [id number] Cosigned by: [id number] Titration: 03/29/21 05:06 Dose: 200 mcg/hr, 40 mls/hr Documented by: [id number] Cosigned by: [id number] Admin: 03/28/21 23:04 Dose: 200 mcg/hr, 40 mls/hr Documented by: [id number] Cosigned by: [id number] Titration: 03/28/21 23:04 Dose: 200 mcg/hr, 40 mls/hr Documented by: [id number] Cosigned by: [id number] Titration: 03/28/21 18:51 Dose: 200 mcg/hr, 40 mls/hr Documented by: [id number] Cosigned by: [id number] Admin: 03/28/21 17:30 Dose: Not Given Documented by: [id number] Admin: 03/28/21 17:17 Dose: 200 mcg/hr, 40 mls/hr Documented by: [id number] Cosigned by: [id number] Titration: 03/28/21 17:17 Dose: 200 mcg/hr, 40 mls/hr Documented by: [id number] Cosigned by: [id number] Titration: 03/28/21 17:15 Dose: 200 mcg/hr, 40 mls/hr Documented by: [id number] Cosigned by: [id number] Titration: 03/28/21 15:00 Dose: 150 mcg/hr, 30 mls/hr Documented by: [id number] Cosigned by: [id number] Titration: 03/28/21 13:31 Dose: 200 mcg/hr, 40 mls/hr Documented by: [id number] Cosigned by: [id number] Titration: 03/28/21 11:57 Dose: 175 mcg/hr, 35 mls/hr Documented by: [id number] Cosigned by: [id number] Admin: 03/28/21 10:55 Dose: Not Given Documented by: [id number] Admin: 03/28/21 10:54 Dose: Not Given Documented by: [id number] Admin: 03/28/21 10:54 Dose: Not Given Documented by: [id number] Admin: 03/28/21 10:33 Dose: 150 mcg/hr, 30 mls/hr Documented by: [id number] Cosigned by: [id number] Titration: 03/28/21 10:31 Dose: 150 mcg/hr, 30 mls/hr Documented by: [id number] Cosigned by: [id number] Admin: 03/28/21 02:39 Dose: 175 mcg/hr, 35 mls/hr Documented by: [id number] Cosigned by: [id number] Titration: 03/28/21 02:39 Dose: 175 mcg/hr, 35 mls/hr Documented by: [id number] Cosigned by: [id number] Admin: 03/27/21 19:40 Dose: 175 mcg/hr, 35 mls/hr Documented by: [id number] Cosigned by: [id number] Titration: 03/27/21 19:40 Dose: 175 mcg/hr, 35 mls/hr Documented by: [id number] Cosigned by: [id number] Titration: 03/27/21 19:05 Dose: 175 mcg/hr, 35 mls/hr Documented by: [id number] Cosigned by: [id number] Titration: 03/27/21 17:52 Dose: 175 mcg/hr, 35 mls/hr Documented by: [id number] Cosigned by: [id number] Titration: 03/27/21 15:49 Dose: 200 mcg/hr, 40 mls/hr Documented by: [id number] Cosigned by: [id number] Titration: 03/27/21 15:18 Dose: 175 mcg/hr, 35 mls/hr Documented by: [id number] Cosigned by: [id number] Admin: 03/27/21 13:50 Dose: 150 mcg/hr, 30 mls/hr Documented by: [id number] Cosigned by: [id number] Titration: 03/27/21 13:50 Dose: 150 mcg/hr, 30 mls/hr Documented by: [id number] Cosigned by: [id number] Titration: 03/27/21 10:30 Dose: 150 mcg/hr, 30 mls/hr Documented by: [id number] Cosigned by: [id number] Titration: 03/27/21 09:30 Dose: 125 mcg/hr, 25 mls/hr Documented by: [id number] Cosigned by: [id number] Admin: 03/27/21 08:40 Dose: 100 mcg/hr, 20 mls/hr Documented by: [id number] Cosigned by: [id number] Calcium Gluconate 1,000 mg/ (Sodium Chloride) 60 mls @ 240 mls/hr IV 0830 ONE Stop: 03/28/21 08:44 Last Infusion: 03/28/21 09:10 Dose: 0 mls/hr Documented by: [id number] Admin: 03/28/21 08:37 Dose: 240 mls/hr Documented by: [id number] Insulin Human Regular 10 units (/ Syringe) 10 mls @ 10 mls/min IV 0830 ONE Stop: 03/28/21 08:31 Last Admin: 03/28/21 08:39 Dose: 10 mls/min Documented by: [id number] Cosigned by: [id number] Propofol (Diprivan) 1,000 mg in 100 mls @ 26.064 mls/hr IV .Q3H51M [facility]; Protocol Stop: 03/31/21 08:14 Last Titration: 03/31/21 20:15 Dose: 0 mcg/kg/min, 0 mls/hr Documented by: [id number] Admin: 03/31/21 19:30 Dose: Not Given Documented by: [id number] Titration: 03/31/21 19:00 Dose: 40 mcg/kg/min, 26.1 mls/hr Documented by: [id number] Cosigned by: [id number] Admin: 03/31/21 16:25 Dose: 40 mcg/kg/min, 26.1 mls/hr Documented by: [id number] Cosigned by: [id number] Titration: 03/31/21 16:08 Dose: 40 mcg/kg/min, 26.1 mls/hr Documented by: [id number] Cosigned by: [id number] Admin: 03/31/21 12:18 Dose: 40 mcg/kg/min, 26.1 mls/hr Documented by: [id number] Cosigned by: [id number] Titration: 03/31/21 12:15 Dose: 40 mcg/kg/min, 26.1 mls/hr Documented by: [id number] Cosigned by: [id number] Titration: 03/31/21 08:25 Dose: 40 mcg/kg/min, 26.1 mls/hr Documented by: [id number] Cosigned by: [id number] Admin: 03/31/21 08:25 Dose: 40 mcg/kg/min, 26.1 mls/hr Documented by: [id number] Cosigned by: [id number] Titration: 03/31/21 07:22 Dose: 40 mcg/kg/min, 26.1 mls/hr Documented by: [id number] Cosigned by: [id number] Admin: 03/31/21 05:00 Dose: 44.97 mcg/kg/min, 29.3 mls/hr Documented by: [id number] Cosigned by: [id number] Titration: 03/31/21 05:00 Dose: 40 mcg/kg/min, 26.1 mls/hr Documented by: [id number] Cosigned by: [id number] Admin: 03/31/21 01:39 Dose: 44.97 mcg/kg/min, 29.3 mls/hr Documented by: [id number] Titration: 03/31/21 01:05 Dose: 45 mcg/kg/min, 29.3 mls/hr Documented by: [id number] Admin: 03/30/21 23:33 Dose: Not Given Documented by: [id number] Admin: 03/30/21 21:40 Dose: 44.97 mcg/kg/min, 29.3 mls/hr Documented by: [id number] Cosigned by: [id number] Titration: 03/30/21 21:40 Dose: 44.97 mcg/kg/min, 29.3 mls/hr Documented by: [id number] Cosigned by: [id number] Titration: 03/30/21 19:13 Dose: 44.97 mcg/kg/min, 29.3 mls/hr Documented by: [id number] Cosigned by: [id number] Titration: 03/30/21 18:33 Dose: 45 mcg/kg/min, 29.3 mls/hr Documented by: [id number] Cosigned by: [id number] Admin: 03/30/21 18:33 Dose: 45 mcg/kg/min, 29.3 mls/hr Documented by: [id number] Cosigned by: [id number] Titration: 03/30/21 16:17 Dose: 45 mcg/kg/min, 29.3 mls/hr Documented by: [id number] Admin: 03/30/21 15:07 Dose: 35 mcg/kg/min, 22.8 mls/hr Documented by: [id number] Cosigned by: [id number] Titration: 03/30/21 14:50 Dose: 35 mcg/kg/min, 22.8 mls/hr Documented by: [id number] Admin: 03/30/21 14:20 Dose: Not Given Documented by: [id number] Admin: 03/30/21 14:17 Dose: Not Given Documented by: [id number] Admin: 03/30/21 14:17 Dose: Not Given Documented by: [id number] Admin: 03/30/21 14:17 Dose: Not Given Documented by: [id number] Admin: 03/30/21 14:17 Dose: Not Given Documented by: [id number] Admin: 03/30/21 14:17 Dose: Not Given Documented by: [id number] Titration: 03/30/21 13:45 Dose: 40 mcg/kg/min, 26.1 mls/hr Documented by: [id number] Titration: 03/30/21 12:13 Dose: 40 mcg/kg/min, 26.1 mls/hr Documented by: [id number] Admin: 03/30/21 10:23 Dose: 50 mcg/kg/min, 32.6 mls/hr Documented by: [id number] Cosigned by: [id number] Titration: 03/30/21 09:51 Dose: 50 mcg/kg/min, 32.6 mls/hr Documented by: [id number] Cosigned by: [id number] Admin: 03/30/21 08:10 Dose: Not Given Documented by: [id number] Admin: 03/30/21 08:09 Dose: Not Given Documented by: [id number] Admin: 03/30/21 08:09 Dose: Not Given Documented by: [id number] Admin: 03/30/21 08:08 Dose: Not Given Documented by: [id number] Titration: 03/30/21 07:19 Dose: 50 mcg/kg/min, 32.6 mls/hr Documented by: [id number] Cosigned by: [id number] Admin: 03/30/21 06:46 Dose: 50 mcg/kg/min, 32.6 mls/hr Documented by: [id number] Cosigned by: [id number] Titration: 03/30/21 06:46 Dose: 50 mcg/kg/min, 32.6 mls/hr Documented by: [id number] Cosigned by: [id number] Admin: 03/30/21 03:58 Dose: 50 mcg/kg/min, 32.6 mls/hr Documented by: [id number] Cosigned by: [id number] Titration: 03/30/21 02:29 Dose: 50 mcg/kg/min, 32.6 mls/hr Documented by: [id number] Cosigned by: [id number] Admin: 03/29/21 23:24 Dose: 50 mcg/kg/min, 32.6 mls/hr Documented by: [id number] Cosigned by: [id number] Titration: 03/29/21 21:59 Dose: 40 mcg/kg/min, 26.1 mls/hr Documented by: [id number] Cosigned by: [id number] Titration: 03/29/21 19:01 Dose: 40 mcg/kg/min, 26.1 mls/hr Documented by: [id number] Cosigned by: [id number] Admin: 03/29/21 18:09 Dose: 40 mcg/kg/min, 26.1 mls/hr Documented by: [id number] Cosigned by: [id number] Titration: 03/29/21 17:17 Dose: 40 mcg/kg/min, 26.1 mls/hr Documented by: [id number] Cosigned by: [id number] Titration: 03/29/21 14:40 Dose: 40 mcg/kg/min, 26.1 mls/hr Documented by: [id number] Admin: 03/29/21 13:51 Dose: Not Given Documented by: [id number] Admin: 03/29/21 13:26 Dose: Not Given Documented by: [id number] Titration: 03/29/21 13:26 Dose: 30 mcg/kg/min, 19.5 mls/hr Documented by: [id number] Admin: 03/29/21 13:08 Dose: 40 mcg/kg/min, 26.1 mls/hr Documented by: [id number] Cosigned by: [id number] Titration: 03/29/21 12:47 Dose: 40 mcg/kg/min, 26.1 mls/hr Documented by: [id number] Titration: 03/29/21 09:36 Dose: 40 mcg/kg/min, 26.1 mls/hr Documented by: [id number] Admin: 03/29/21 07:53 Dose: 30 mcg/kg/min, 19.5 mls/hr Documented by: [id number] Cosigned by: [id number] Titration: 03/29/21 07:00 Dose: 20 mcg/kg/min, 13 mls/hr Documented by: [id number] Cosigned by: [id number] Titration: 03/29/21 06:30 Dose: 20 mcg/kg/min, 13 mls/hr Documented by: [id number] Admin: 03/29/21 02:08 Dose: Not Given Documented by: [id number] Admin: 03/29/21 01:25 Dose: 30 mcg/kg/min, 19.5 mls/hr Documented by: [id number] Cosigned by: [id number] Titration: 03/28/21 23:47 Dose: 30 mcg/kg/min, 19.5 mls/hr Documented by: [id number] Cosigned by: [id number] Titration: 03/28/21 21:21 Dose: 30 mcg/kg/min, 19.5 mls/hr Documented by: [id number] Titration: 03/28/21 18:51 Dose: 20 mcg/kg/min, 13 mls/hr Documented by: [id number] Cosigned by: [id number] Admin: 03/28/21 17:17 Dose: 20 mcg/kg/min, 13 mls/hr Documented by: [id number] Cosigned by: [id number] Titration: 03/28/21 16:45 Dose: 20 mcg/kg/min, 13 mls/hr Documented by: [id number] Cosigned by: [id number] Titration: 03/28/21 15:00 Dose: 20 mcg/kg/min, 13 mls/hr Documented by: [id number] Titration: 03/28/21 11:57 Dose: 20 mcg/kg/min, 13 mls/hr Documented by: [id number] Titration: 03/28/21 10:31 Dose: 15 mcg/kg/min, 9.8 mls/hr Documented by: [id number] Admin: 03/28/21 08:42 Dose: 20 mcg/kg/min, 13 mls/hr Documented by: [id number] Cosigned by: [id number] Norepinephrine Bitartrate (Levophed/D5w) 8 mg in 508 mls @ 0 mls/hr IV .Q0M [facility]; Protocol Stop: 04/27/21 11:44 Last Titration: 03/30/21 10:09 Dose: 0 mcg/kg/min, 0 mls/hr Documented by: [id number] Admin: 03/29/21 13:26 Dose: Not Given Documented by: [id number] Titration: 03/29/21 13:08 Dose: 0 mcg/kg/min, 0 mls/hr Documented by: [id number] Titration: 03/29/21 12:47 Dose: 0.025 mcg/kg/min, 10.3 mls/hr Documented by: [id number] Titration: 03/29/21 08:19 Dose: 0.05 mcg/kg/min, 20.7 mls/hr Documented by: [id number] Admin: 03/29/21 07:54 Dose: 0.075 mcg/kg/min, 31 mls/hr Documented by: [id number] Cosigned by: [id number] Titration: 03/29/21 07:54 Dose: 0.08 mcg/kg/min, 33.1 mls/hr Documented by: [id number] Cosigned by: [id number] Titration: 03/29/21 07:00 Dose: 0.08 mcg/kg/min, 33.1 mls/hr Documented by: [id number] Cosigned by: [id number] Titration: 03/29/21 05:58 Dose: 0.08 mcg/kg/min, 33.1 mls/hr Documented by: [id number] Titration: 03/28/21 18:51 Dose: 0.05 mcg/kg/min, 20.7 mls/hr Documented by: [id number] Cosigned by: [id number] Titration: 03/28/21 15:00 Dose: 0.05 mcg/kg/min, 20.7 mls/hr Documented by: [id number] Titration: 03/28/21 11:57 Dose: 0.05 mcg/kg/min, 20.7 mls/hr Documented by: [id number] Admin: 03/28/21 11:48 Dose: 0.1 mcg/kg/min, 41.4 mls/hr Documented by: [id number] Cosigned by: [id number] Dexamethasone 14 mg/ Syringe 3.5 mls @ 1 mls/min IV ONE ONE Stop: 03/28/21 13:48 Last Admin: 03/28/21 14:37 Dose: 1 mls/min Documented by: [id number] Dexamethasone 10 mg/ Syringe 2.5 mls @ 1 mls/min IV DAILY [facility] Stop: 04/06/21 09:03 Last Admin: 04/06/21 07:41 Dose: 1 mls/min Documented by: [id number] Admin: 04/05/21 09:04 Dose: 1 mls/min Documented by: [id number] Admin: 04/04/21 09:23 Dose: 1 mls/min Documented by: [id number] Admin: 04/03/21 07:38 Dose: 1 mls/min Documented by: [id number] Admin: 04/02/21 08:46 Dose: 1 mls/min Documented by: [id number] Dexamethasone 20 mg/ Dextrose 30 mls @ 0.833 mls/min IV DAILY [facility] Stop: 04/01/21 09:35 Last Infusion: 04/01/21 10:49 Dose: 0 mls/min Documented by: [id number] Admin: 04/01/21 09:44 Dose: 200 mls/min Documented by: [id number] Infusion: 03/31/21 08:43 Dose: 0 mls/min Documented by: [id number] Admin: 03/31/21 08:24 Dose: 30 mls/min Documented by: [id number] Infusion: 03/30/21 08:37 Dose: 0 mls/min Documented by: [id number] Admin: 03/30/21 07:54 Dose: 30 mls/min Documented by: [id number] Infusion: 03/29/21 07:52 Dose: 0 mls/min Documented by: [id number] Admin: 03/29/21 07:19 Dose: 30 mls/min Documented by: [id number] Sodium Phosphate 15 mmol/ (Sodium Chloride) 255 mls @ 100 mls/hr IV 0800 ONE Stop: 03/29/21 10:32 Last Infusion: 03/29/21 10:38 Dose: 0 mls/hr Documented by: [id number] Admin: 03/29/21 07:53 Dose: 100 mls/hr Documented by: [id number] Midazolam HCl (Versed) 125 mg in 250 mls @ 0 mls/hr IV .Q0M MARCIA; Protocol Stop: 04/28/21 09:29 Last Titration: 03/30/21 08:37 Dose: 8 mg/hr, 16 mls/hr Documented by: [id number] Cosigned by: [id number] Titration: 03/30/21 07:19 Dose: 0 mg/hr, 0 mls/hr Documented by: [id number] Cosigned by: [id number] Titration: 03/29/21 12:47 Dose: 0 mg/hr, 0 mls/hr Documented by: [id number] Cosigned by: [id number] Titration: 03/29/21 10:49 Dose: 4.5 mg/hr, 9 mls/hr Documented by: [id number] Cosigned by: [id number] Admin: 03/29/21 10:40 Dose: 4 mg/hr, 8 mls/hr Documented by: [id number] Cosigned by: [id number] Furosemide 40 mg/ Syringe 4 mls @ 4 mls/min IV ONE ONE Stop: 03/30/21 07:46 Last Admin: 03/30/21 07:54 Dose: 4 mls/min Documented by: [id number] Midazolam HCl (Versed) 125 mg in 250 mls @ 0 mls/hr IV .Q0M MARCIA; Protocol Stop: 04/29/21 09:14 Last Titration: 04/06/21 11:26 Dose: 0 mg/hr, 0 mls/hr Documented by: [id number] Cosigned by: [id number] Titration: 04/06/21 08:10 Dose: 0 mg/hr, 0 mls/hr Documented by: [id number] Cosigned by: [id number] Titration: 04/06/21 06:58 Dose: 2 mg/hr, 4 mls/hr Documented by: [id number] Cosigned by: [id number] Admin: 04/06/21 02:26 Dose: 8.75 mg/hr, 17.5 mls/hr Documented by: [id number] Cosigned by: [id number] Titration: 04/06/21 02:26 Dose: 8.75 mg/hr, 17.5 mls/hr Documented by: [id number] Cosigned by: [id number] Titration: 04/06/21 01:39 Dose: 8.75 mg/hr, 17.5 mls/hr Documented by: [id number] Cosigned by: [id number] Titration: 04/05/21 18:57 Dose: 4 mg/hr, 8 mls/hr Documented by: [id number] Cosigned by: [id number] Titration: 04/05/21 17:21 Dose: 4 mg/hr, 8 mls/hr Documented by: [id number] Cosigned by: [id number] Titration: 04/05/21 07:09 Dose: 6 mg/hr, 12 mls/hr Documented by: [id number] Cosigned by: [id number] Admin: 04/05/21 03:47 Dose: 6 mg/hr, 12 mls/hr Documented by: [id number] Cosigned by: [id number] Titration: 04/05/21 03:47 Dose: 6 mg/hr, 12 mls/hr Documented by: [id number] Cosigned by: [id number] Titration: 04/05/21 00:24 Dose: 6 mg/hr, 12 mls/hr Documented by: [id number] Cosigned by: [id number] Admin: 04/05/21 00:24 Dose: 6 mg/hr, 12 mls/hr Documented by: [id number] Cosigned by: [id number] Titration: 04/04/21 21:30 Dose: 6 mg/hr, 12 mls/hr Documented by: [id number] Cosigned by: [id number] Titration: 04/04/21 19:06 Dose: 2 mg/hr, 4 mls/hr Documented by: [id number] Cosigned by: [id number] Titration: 04/04/21 07:13 Dose: 2 mg/hr, 4 mls/hr Documented by: [id number] Cosigned by: [id number] Admin: 04/04/21 00:30 Dose: 2 mg/hr, 4 mls/hr Documented by: [id number] Cosigned by: [id number] Titration: 04/04/21 00:30 Dose: 2 mg/hr, 4 mls/hr Documented by: [id number] Cosigned by: [id number] Titration: 04/03/21 19:15 Dose: 2 mg/hr, 4 mls/hr Documented by: [id number] Cosigned by: [id number] Titration: 04/03/21 18:00 Dose: 2 mg/hr, 4 mls/hr Documented by: [id number] Cosigned by: [id number] Titration: 04/03/21 17:00 Dose: 2.5 mg/hr, 5 mls/hr Documented by: [id number] Cosigned by: [id number] Titration: 04/03/21 10:17 Dose: 3 mg/hr, 6 mls/hr Documented by: [id number] Cosigned by: [id number] Admin: 04/03/21 10:07 Dose: Not Given Documented by: [id number] Titration: 04/03/21 08:30 Dose: 3.5 mg/hr, 7 mls/hr Documented by: [id number] Cosigned by: [id number] Titration: 04/03/21 07:00 Dose: 4 mg/hr, 8 mls/hr Documented by: [id number] Cosigned by: [id number] Titration: 04/03/21 00:03 Dose: 4 mg/hr, 8 mls/hr Documented by: [id number] Cosigned by: [id number] Titration: 04/02/21 22:46 Dose: 5 mg/hr, 10 mls/hr Documented by: [id number] Cosigned by: [id number] Admin: 04/02/21 20:00 Dose: 6.5 mg/hr, 13 mls/hr Documented by: [id number] Cosigned by: [id number] Titration: 04/02/21 20:00 Dose: 6.5 mg/hr, 13 mls/hr Documented by: [id number] Cosigned by: [id number] Titration: 04/02/21 19:09 Dose: 6.5 mg/hr, 13 mls/hr Documented by: [id number] Cosigned by: [id number] Admin: 04/02/21 13:24 Dose: Not Given Documented by: [id number] Titration: 04/02/21 12:48 Dose: 6.5 mg/hr, 13 mls/hr Documented by: [id number] Cosigned by: [id number] Titration: 04/02/21 09:31 Dose: 6 mg/hr, 12 mls/hr Documented by: [id number] Cosigned by: [id number] Titration: 04/02/21 08:45 Dose: 6.5 mg/hr, 13 mls/hr Documented by: [id number] Cosigned by: [id number] Titration: 04/02/21 08:00 Dose: 7 mg/hr, 14 mls/hr Documented by: [id number] Cosigned by: [id number] Titration: 04/02/21 07:30 Dose: 7.5 mg/hr, 15 mls/hr Documented by: [id number] Cosigned by: [id number] Titration: 04/02/21 07:07 Dose: 8 mg/hr, 16 mls/hr Documented by: [id number] Cosigned by: [id number] Admin: 04/02/21 02:41 Dose: 8 mg/hr, 16 mls/hr Documented by: [id number] Cosigned by: [id number] Titration: 04/02/21 02:41 Dose: 8 mg/hr, 16 mls/hr Documented by: [id number] Cosigned by: [id number] Titration: 04/01/21 21:34 Dose: 8 mg/hr, 16 mls/hr Documented by: [id number] Cosigned by: [id number] Admin: 04/01/21 20:01 Dose: Not Given Documented by: [id number] Titration: 04/01/21 19:00 Dose: 7 mg/hr, 14 mls/hr Documented by: [id number] Cosigned by: [id number] Titration: 04/01/21 18:53 Dose: 6 mg/hr, 12 mls/hr Documented by: [id number] Cosigned by: [id number] Admin: 04/01/21 08:13 Dose: 6 mg/hr, 12 mls/hr Documented by: [id number] Cosigned by: [id number] Titration: 04/01/21 07:49 Dose: 6 mg/hr, 12 mls/hr Documented by: [id number] Cosigned by: [id number] Titration: 04/01/21 07:07 Dose: 6 mg/hr, 12 mls/hr Documented by: [id number] Cosigned by: [id number] Admin: 04/01/21 05:30 Dose: Not Given Documented by: [id number] Titration: 04/01/21 05:02 Dose: 6 mg/hr, 12 mls/hr Documented by: [id number] Cosigned by: [id number] Titration: 03/31/21 19:00 Dose: 7 mg/hr, 14 mls/hr Documented by: [id number] Cosigned by: [id number] Admin: 03/31/21 13:33 Dose: 7 mg/hr, 14 mls/hr Documented by: [id number] Cosigned by: [id number] Titration: 03/31/21 13:33 Dose: 7 mg/hr, 14 mls/hr Documented by: [id number] Cosigned by: [id number] Titration: 03/31/21 10:23 Dose: 7 mg/hr, 14 mls/hr Documented by: [id number] Cosigned by: [id number] Titration: 03/31/21 09:00 Dose: 6.5 mg/hr, 13 mls/hr Documented by: [id number] Cosigned by: [id number] Titration: 03/31/21 07:22 Dose: 6 mg/hr, 12 mls/hr Documented by: [id number] Cosigned by: [id number] Titration: 03/31/21 01:20 Dose: 6 mg/hr, 12 mls/hr Documented by: [id number] Cosigned by: [id number] Admin: 03/30/21 22:09 Dose: 8 mg/hr, 16 mls/hr Documented by: [id number] Cosigned by: [id number] Titration: 03/30/21 22:09 Dose: 8 mg/hr, 16 mls/hr Documented by: [id number] Cosigned by: [id number] Titration: 03/30/21 19:13 Dose: 8 mg/hr, 16 mls/hr Documented by: [id number] Cosigned by: [id number] Titration: 03/30/21 16:18 Dose: 8 mg/hr, 16 mls/hr Documented by: [id number] Cosigned by: [id number] Titration: 03/30/21 12:14 Dose: 6 mg/hr, 12 mls/hr Documented by: [id number] Cosigned by: [id number] Admin: 03/30/21 09:15 Dose: 8 mg/hr, 16 mls/hr Documented by: [id number] Cosigned by: [id number] Norepinephrine Bitartrate (Levophed/D5w) 8 mg in 508 mls @ 0 mls/hr IV .Q0M [facility]; Protocol Stop: 04/29/21 13:29 Last Titration: 04/07/21 14:15 Dose: 0 mcg/kg/min, 0 mls/hr Documented by: [id number] Admin: 04/03/21 10:07 Dose: Not Given Documented by: [id number] Titration: 04/03/21 07:00 Dose: 0 mcg/kg/min, 0 mls/hr Documented by: [id number] Cosigned by: [id number] Titration: 04/03/21 04:00 Dose: 0 mcg/kg/min, 0 mls/hr Documented by: [id number] Titration: 04/03/21 03:30 Dose: 0.03 mcg/kg/min, 12.3 mls/hr Documented by: [id number] Titration: 04/02/21 19:09 Dose: 0.05 mcg/kg/min, 20.6 mls/hr Documented by: [id number] Cosigned by: [id number] Titration: 04/02/21 12:16 Dose: 0.05 mcg/kg/min, 20.6 mls/hr Documented by: [id number] Admin: 04/02/21 10:12 Dose: Not Given Documented by: [id number] Titration: 03/31/21 23:50 Dose: 0 mcg/kg/min, 0 mls/hr Documented by: [id number] Titration: 03/31/21 23:30 Dose: 0.02 mcg/kg/min, 8.2 mls/hr Documented by: [id number] Titration: 03/31/21 19:00 Dose: 0.03 mcg/kg/min, 12.3 mls/hr Documented by: [id number] Titration: 03/31/21 18:33 Dose: 0 mcg/kg/min, 0 mls/hr Documented by: [id number] Cosigned by: [id number] Admin: 03/31/21 18:33 Dose: 0.03 mcg/kg/min, 12.3 mls/hr Documented by: [id number] Cosigned by: [id number] Titration: 03/31/21 13:00 Dose: 0 mcg/kg/min, 0 mls/hr Documented by: [id number] Admin: 03/31/21 12:36 Dose: 0.05 mcg/kg/min, 20.6 mls/hr Documented by: [id number] Cosigned by: [id number] Titration: 03/31/21 12:36 Dose: 0 mcg/kg/min, 0 mls/hr Documented by: [id number] Cosigned by: [id number] Titration: 03/31/21 10:24 Dose: 0 mcg/kg/min, 0 mls/hr Documented by: [id number] Titration: 03/31/21 09:00 Dose: 0 mcg/kg/min, 0 mls/hr Documented by: [id number] Titration: 03/31/21 07:22 Dose: 0.03 mcg/kg/min, 12.3 mls/hr Documented by: [id number] Cosigned by: [id number] Titration: 03/31/21 03:33 Dose: 0.03 mcg/kg/min, 12.3 mls/hr Documented by: [id number] Titration: 03/31/21 01:44 Dose: 0.05 mcg/kg/min, 20.6 mls/hr Documented by: [id number] Titration: 03/30/21 19:13 Dose: 0.07 mcg/kg/min, 28.8 mls/hr Documented by: [id number] Cosigned by: [id number] Admin: 03/30/21 14:15 Dose: 0.05 mcg/kg/min, 20.6 mls/hr Documented by: [id number] Cosigned by: [id number] Potassium Chloride (K Miko / Wtr) 20 meq in 100 mls @ 50 mls/hr IV Q2H [facility] Stop: 03/31/21 12:44 Last Infusion: 03/31/21 15:32 Dose: 0 mls/hr Documented by: [id number] Admin: 03/31/21 12:59 Dose: 50 mls/hr Documented by: [id number] Infusion: 03/31/21 12:21 Dose: 50 mls/hr Documented by: [id number] Admin: 03/31/21 10:21 Dose: 50 mls/hr Documented by: [id number] Infusion: 03/31/21 10:17 Dose: 50 mls/hr Documented by: [id number] Admin: 03/31/21 08:17 Dose: 50 mls/hr Documented by: [id number] Furosemide 40 mg/ Syringe 4 mls @ 4 mls/min IV ONE ONE Stop: 03/31/21 08:31 Last Admin: 03/31/21 09:01 Dose: 4 mls/min Documented by: [id number] Propofol (Diprivan) 1,000 mg in 100 mls @ 20.25 mls/hr IV .Q4H57M [facility]; Protocol Stop: 04/03/21 09:44 Last Titration: 04/03/21 12:55 Dose: 0 mcg/kg/min, 0 mls/hr Documented by: [id number] Admin: 04/03/21 10:18 Dose: Not Given Documented by: [id number] Admin: 04/03/21 07:38 Dose: 30 mcg/kg/min, 20.3 mls/hr Documented by: [id number] Cosigned by: [id number] Titration: 04/03/21 07:14 Dose: 30 mcg/kg/min, 20.3 mls/hr Documented by: [id number] Cosigned by: [id number] Titration: 04/03/21 07:00 Dose: 30 mcg/kg/min, 20.3 mls/hr Documented by: [id number] Cosigned by: [id number] Admin: 04/03/21 02:24 Dose: Not Given Documented by: [id number] Admin: 04/03/21 02:18 Dose: 30 mcg/kg/min, 20.3 mls/hr Documented by: [id number] Cosigned by: [id number] Titration: 04/03/21 02:18 Dose: 30 mcg/kg/min, 20.3 mls/hr Documented by: [id number] Cosigned by: [id number] Titration: 04/03/21 00:03 Dose: 30 mcg/kg/min, 20.3 mls/hr Documented by: [id number] Admin: 04/02/21 23:14 Dose: Not Given Documented by: [id number] Admin: 04/02/21 23:14 Dose: Not Given Documented by: [id number] Admin: 04/02/21 23:14 Dose: Not Given Documented by: [id number] Admin: 04/02/21 23:14 Dose: Not Given Documented by: [id number] Admin: 04/02/21 23:13 Dose: Not Given Documented by: [id number] Admin: 04/02/21 23:13 Dose: Not Given Documented by: [id number] Admin: 04/02/21 23:13 Dose: Not Given Documented by: [id number] Admin: 04/02/21 23:13 Dose: Not Given Documented by: [id number] Titration: 04/02/21 22:46 Dose: 40 mcg/kg/min, 27 mls/hr Documented by: [id number] Admin: 04/02/21 22:29 Dose: 45 mcg/kg/min, 30.4 mls/hr Documented by: [id number] Cosigned by: [id number] Titration: 04/02/21 21:11 Dose: 45 mcg/kg/min, 30.4 mls/hr Documented by: [id number] Cosigned by: [id number] Titration: 04/02/21 19:09 Dose: 45 mcg/kg/min, 30.4 mls/hr Documented by: [id number] Cosigned by: [id number] Admin: 04/02/21 17:53 Dose: 45 mcg/kg/min, 30.4 mls/hr Documented by: [id number] Cosigned by: [id number] Titration: 04/02/21 16:26 Dose: 0 mcg/kg/min, 0 mls/hr Documented by: [id number] Admin: 04/02/21 12:48 Dose: 45 mcg/kg/min, 30.4 mls/hr Documented by: [id number] Cosigned by: [id number] Titration: 04/02/21 12:48 Dose: 45 mcg/kg/min, 30.4 mls/hr Documented by: [id number] Cosigned by: [id number] Admin: 04/02/21 09:59 Dose: 45 mcg/kg/min, 30.4 mls/hr Documented by: [id number] Cosigned by: [id number] Titration: 04/02/21 09:41 Dose: 45 mcg/kg/min, 30.4 mls/hr Documented by: [id number] Cosigned by: [id number] Admin: 04/02/21 07:30 Dose: Not Given Documented by: [id number] Titration: 04/02/21 07:07 Dose: 45 mcg/kg/min, 30.4 mls/hr Documented by: [id number] Cosigned by: [id number] Admin: 04/02/21 06:23 Dose: 45 mcg/kg/min, 30.4 mls/hr Documented by: [id number] Cosigned by: [id number] Titration: 04/02/21 05:59 Dose: 45 mcg/kg/min, 30.4 mls/hr Documented by: [id number] Cosigned by: [id number] Admin: 04/02/21 02:41 Dose: 45 mcg/kg/min, 30.4 mls/hr Documented by: [id number] Cosigned by: [id number] Titration: 04/02/21 02:26 Dose: 45 mcg/kg/min, 30.4 mls/hr Documented by: [id number] Cosigned by: [id number] Admin: 04/01/21 23:08 Dose: 45 mcg/kg/min, 30.4 mls/hr Documented by: [id number] Cosigned by: [id number] Titration: 04/01/21 23:08 Dose: 45 mcg/kg/min, 30.4 mls/hr Documented by: [id number] Cosigned by: [id number] Titration: 04/01/21 21:33 Dose: 45 mcg/kg/min, 30.4 mls/hr Documented by: [id number] Admin: 04/01/21 20:31 Dose: 40 mcg/kg/min, 27 mls/hr Documented by: [id number] Cosigned by: [id number] Titration: 04/01/21 20:11 Dose: 40 mcg/kg/min, 27 mls/hr Documented by: [id number] Cosigned by: [id number] Admin: 04/01/21 20:00 Dose: Not Given Documented by: [id number] Admin: 04/01/21 20:00 Dose: Not Given Documented by: [id number] Admin: 04/01/21 19:59 Dose: Not Given Documented by: [id number] Titration: 04/01/21 19:45 Dose: 40 mcg/kg/min, 27 mls/hr Documented by: [id number] Titration: 04/01/21 18:53 Dose: 35 mcg/kg/min, 23.6 mls/hr Documented by: [id number] Cosigned by: [id number] Admin: 04/01/21 16:00 Dose: 35 mcg/kg/min, 23.6 mls/hr Documented by: [id number] Cosigned by: [id number] Titration: 04/01/21 16:00 Dose: 35 mcg/kg/min, 23.6 mls/hr Documented by: [id number] Cosigned by: [id number] Admin: 04/01/21 12:19 Dose: 35 mcg/kg/min, 23.6 mls/hr Documented by: [id number] Cosigned by: [id number] Titration: 04/01/21 12:19 Dose: 35 mcg/kg/min, 23.6 mls/hr Documented by: [id number] Cosigned by: [id number] Admin: 04/01/21 08:14 Dose: 35 mcg/kg/min, 23.6 mls/hr Documented by: [id number] Cosigned by: [id number] Titration: 04/01/21 07:36 Dose: 35 mcg/kg/min, 23.6 mls/hr Documented by: [id number] Cosigned by: [id number] Titration: 04/01/21 07:07 Dose: 35 mcg/kg/min, 23.6 mls/hr Documented by: [id number] Cosigned by: [id number] Titration: 04/01/21 05:02 Dose: 35 mcg/kg/min, 23.6 mls/hr Documented by: [id number] Admin: 04/01/21 03:34 Dose: 40 mcg/kg/min, 27 mls/hr Documented by: [id number] Cosigned by: [id number] Titration: 04/01/21 03:34 Dose: 40 mcg/kg/min, 27 mls/hr Documented by: [id number] Cosigned by: [id number] Admin: 04/01/21 00:04 Dose: 40 mcg/kg/min, 27 mls/hr Documented by: [id number] Cosigned by: [id number] Titration: 04/01/21 00:04 Dose: 40 mcg/kg/min, 27 mls/hr Documented by: [id number] Cosigned by: [id number] Admin: 03/31/21 21:10 Dose: 40 mcg/kg/min, 27 mls/hr Documented by: [id number] Cosigned by: [id number] Admin: 03/31/21 19:37 Dose: Not Given Documented by: [id number] Admin: 03/31/21 19:37 Dose: Not Given Documented by: [id number] Admin: 03/31/21 19:37 Dose: Not Given Documented by: [id number] Vecuronium [place] 10 mg/ (Sodium Chloride) 110 mls @ 38.544 mls/hr IV .Q2H52M [facility]; Protocol Stop: 04/30/21 10:44 Last Admin: 03/31/21 14:50 Dose: Not Given Documented by: [id number] Furosemide 40 mg/ Syringe 4 mls @ 4 mls/min IV ONE ONE Stop: 04/01/21 07:46 Last Admin: 04/01/21 08:13 Dose: 4 mls/min Documented by: [id number] Furosemide 40 mg/ Syringe 4 mls @ 4 mls/min IV ONE ONE Stop: 04/02/21 08:04 Last Admin: 04/02/21 08:40 Dose: 4 mls/min Documented by: [id number] Furosemide 20 mg/ Syringe 2 mls @ 4 mls/min IV ONE ONE Stop: 04/02/21 19:27 Last Admin: 04/02/21 20:05 Dose: 4 mls/min Documented by: [id number] Piperacillin Sod/Tazobactam (Sod 4.5 gm/ Dextrose) 120 mls @ 200 mls/hr IV NOW ONE; Protocol Stop: 04/03/21 09:05 Last Infusion: 04/03/21 10:54 Dose: 0 mls/hr Documented by: [id number] Admin: 04/03/21 09:45 Dose: 200 mls/hr Documented by: [id number] Piperacillin Sod/Tazobactam (Sod 4.5 gm/ Dextrose) 120 mls @ 30 mls/hr IV Q8H [facility]; Protocol Stop: 04/10/21 13:59 Last Infusion: 04/06/21 08:52 Dose: 0 mls/hr Documented by: [id number] Infusion: 04/06/21 06:58 Dose: 30 mls/hr Documented by: [id number] Admin: 04/06/21 04:57 Dose: 30 mls/hr Documented by: [id number] Infusion: 04/06/21 00:44 Dose: 0 mls/hr Documented by: [id number] Admin: 04/05/21 20:44 Dose: 30 mls/hr Documented by: [id number] Infusion: 04/05/21 17:51 Dose: 0 mls/hr Documented by: [id number] Admin: 04/05/21 14:00 Dose: 30 mls/hr Documented by: [id number] Infusion: 04/05/21 10:42 Dose: 0 mls/hr Documented by: [id number] Admin: 04/05/21 05:59 Dose: 30 mls/hr Documented by: [id number] Infusion: 04/05/21 00:07 Dose: 0 mls/hr Documented by: [id number] Admin: 04/04/21 20:07 Dose: 30 mls/hr Documented by: [id number] Infusion: 04/04/21 18:23 Dose: 0 mls/hr Documented by: [id number] Admin: 04/04/21 13:24 Dose: 30 mls/hr Documented by: [id number] Infusion: 04/04/21 09:50 Dose: 0 mls/hr Documented by: [id number] Admin: 04/04/21 05:48 Dose: 30 mls/hr Documented by: [id number] Infusion: 04/04/21 00:11 Dose: 0 mls/hr Documented by: [id number] Admin: 04/03/21 20:11 Dose: 30 mls/hr Documented by: [id number] Infusion: 04/03/21 18:46 Dose: 0 mls/hr Documented by: [id number] Admin: 04/03/21 14:40 Dose: 30 mls/hr Documented by: [id number] Potassium Chloride (K Miko / Wtr) 20 meq in 100 mls @ 50 mls/hr IV ONE ONE Stop: 04/03/21 12:14 Last Infusion: 04/03/21 12:55 Dose: 0 mls/hr Documented by: [id number] Admin: 04/03/21 10:29 Dose: 50 mls/hr Documented by: [id number] Propofol (Diprivan) 1,000 mg in 100 mls @ 9.927 mls/hr IV .Q10H5M [facility]; Protocol Stop: 04/09/21 11:44 Last Titration: 04/08/21 14:11 Dose: 0 mcg/kg/min, 0 mls/hr Documented by: [id number] Admin: 04/08/21 14:06 Dose: Not Given Documented by: [id number] Titration: 04/08/21 08:12 Dose: 15 mcg/kg/min, 9.9 mls/hr Documented by: [id number] Cosigned by: [id number] Admin: 04/08/21 08:12 Dose: 15 mcg/kg/min, 9.9 mls/hr Documented by: [id number] Cosigned by: [id number] Titration: 04/08/21 07:10 Dose: 15 mcg/kg/min, 9.9 mls/hr Documented by: [id number] Cosigned by: [id number] Titration: 04/08/21 03:55 Dose: 15 mcg/kg/min, 9.9 mls/hr Documented by: [id number] Admin: 04/08/21 00:01 Dose: 10 mcg/kg/min, 6.6 mls/hr Documented by: [id number] Cosigned by: [id number] Titration: 04/07/21 22:20 Dose: 10 mcg/kg/min, 6.6 mls/hr Documented by: [id number] Cosigned by: [id number] Titration: 04/07/21 19:14 Dose: 10 mcg/kg/min, 6.6 mls/hr Documented by: [id number] Cosigned by: [id number] Titration: 04/07/21 14:10 Dose: 10 mcg/kg/min, 6.6 mls/hr Documented by: [id number] Titration: 04/07/21 13:10 Dose: 5 mcg/kg/min, 3.3 mls/hr Documented by: [id number] Titration: 04/07/21 12:04 Dose: 0 mcg/kg/min, 0 mls/hr Documented by: [id number] Admin: 04/07/21 10:55 Dose: Not Given Documented by: [id number] Admin: 04/07/21 10:51 Dose: Not Given Documented by: [id number] Admin: 04/07/21 10:51 Dose: Not Given Documented by: [id number] Admin: 04/07/21 10:51 Dose: Not Given Documented by: [id number] Admin: 04/07/21 09:28 Dose: 25 mcg/kg/min, 16.5 mls/hr Documented by: [id number] Cosigned by: [id number] Titration: 04/07/21 09:28 Dose: 30 mcg/kg/min, 19.9 mls/hr Documented by: [id number] Cosigned by: [id number] Titration: 04/07/21 07:07 Dose: 30 mcg/kg/min, 19.9 mls/hr Documented by: [id number] Cosigned by: [id number] Admin: 04/07/21 04:30 Dose: 30 mcg/kg/min, 19.9 mls/hr Documented by: [id number] Cosigned by: [id number] Titration: 04/07/21 04:10 Dose: 30 mcg/kg/min, 19.9 mls/hr Documented by: [id number] Cosigned by: [id number] Admin: 04/06/21 23:08 Dose: 30 mcg/kg/min, 19.9 mls/hr Documented by: [id number] Cosigned by: [id number] Titration: 04/06/21 23:08 Dose: 30 mcg/kg/min, 19.9 mls/hr Documented by: [id number] Cosigned by: [id number] Titration: 04/06/21 19:01 Dose: 30 mcg/kg/min, 19.9 mls/hr Documented by: [id number] Cosigned by: [id number] Admin: 04/06/21 18:06 Dose: 30 mcg/kg/min, 19.9 mls/hr Documented by: [id number] Cosigned by: [id number] Titration: 04/06/21 18:06 Dose: 30 mcg/kg/min, 19.9 mls/hr Documented by: [id number] Cosigned by: [id number] Titration: 04/06/21 17:22 Dose: 30 mcg/kg/min, 19.9 mls/hr Documented by: [id number] Titration: 04/06/21 17:04 Dose: 50 mcg/kg/min, 33.1 mls/hr Documented by: [id number] Admin: 04/06/21 16:49 Dose: Not Given Documented by: [id number] Admin: 04/06/21 16:49 Dose: Not Given Documented by: [id number] Admin: 04/06/21 16:49 Dose: Not Given Documented by: [id number] Admin: 04/06/21 16:49 Dose: Not Given Documented by: [id number] Admin: 04/06/21 16:49 Dose: Not Given Documented by: [id number] Admin: 04/06/21 16:34 Dose: Not Given Documented by: [id number] Admin: 04/06/21 16:34 Dose: Not Given Documented by: [id number] Admin: 04/06/21 16:34 Dose: Not Given Documented by: [id number] Admin: 04/06/21 16:34 Dose: Not Given Documented by: [id number] Admin: 04/06/21 16:33 Dose: Not Given Documented by: [id number] Admin: 04/06/21 16:33 Dose: Not Given Documented by: [id number] Admin: 04/06/21 16:32 Dose: Not Given Documented by: [id number] Admin: 04/06/21 16:32 Dose: Not Given Documented by: [id number] Titration: 04/06/21 16:00 Dose: 20 mcg/kg/min, 13.2 mls/hr Documented by: [id number] Titration: 04/06/21 15:30 Dose: 25 mcg/kg/min, 16.5 mls/hr Documented by: [id number] Admin: 04/06/21 13:55 Dose: 30 mcg/kg/min, 19.9 mls/hr Documented by: [id number] Cosigned by: [id number] Titration: 04/06/21 13:55 Dose: 30 mcg/kg/min, 19.9 mls/hr Documented by: [id number] Cosigned by: [id number] Titration: 04/06/21 13:19 Dose: 30 mcg/kg/min, 19.9 mls/hr Documented by: [id number] Titration: 04/06/21 12:30 Dose: 35 mcg/kg/min, 23.2 mls/hr Documented by: [id number] Titration: 04/06/21 12:00 Dose: 40 mcg/kg/min, 26.5 mls/hr Documented by: [id number] Titration: 04/06/21 11:30 Dose: 45 mcg/kg/min, 29.8 mls/hr Documented by: [id number] Admin: 04/06/21 10:54 Dose: 50 mcg/kg/min, 33.1 mls/hr Documented by: [id number] Cosigned by: [id number] Titration: 04/06/21 10:42 Dose: 50 mcg/kg/min, 33.1 mls/hr Documented by: [id number] Cosigned by: [id number] Admin: 04/06/21 07:40 Dose: 50 mcg/kg/min, 33.1 mls/hr Documented by: [id number] Cosigned by: [id number] Titration: 04/06/21 07:40 Dose: 50 mcg/kg/min, 33.1 mls/hr Documented by: [id number] Cosigned by: [id number] Titration: 04/06/21 06:58 Dose: 50 mcg/kg/min, 33.1 mls/hr Documented by: [id number] Cosigned by: [id number] Admin: 04/06/21 04:56 Dose: 50 mcg/kg/min, 33.1 mls/hr Documented by: [id number] Cosigned by: [id number] Titration: 04/06/21 04:40 Dose: 50 mcg/kg/min, 33.1 mls/hr Documented by: [id number] Cosigned by: [id number] Admin: 04/06/21 01:38 Dose: 50 mcg/kg/min, 33.1 mls/hr Documented by: [id number] Cosigned by: [id number] Titration: 04/06/21 01:38 Dose: 50 mcg/kg/min, 33.1 mls/hr Documented by: [id number] Cosigned by: [id number] Admin: 04/06/21 00:25 Dose: 50 mcg/kg/min, 33.1 mls/hr Documented by: [id number] Cosigned by: [id number] Titration: 04/05/21 23:26 Dose: 50 mcg/kg/min, 33.1 mls/hr Documented by: [id number] Cosigned by: [id number] Admin: 04/05/21 20:24 Dose: 50 mcg/kg/min, 33.1 mls/hr Documented by: [id number] Cosigned by: [id number] Titration: 04/05/21 20:07 Dose: 50 mcg/kg/min, 33.1 mls/hr Documented by: [id number] Cosigned by: [id number] Titration: 04/05/21 18:57 Dose: 50 mcg/kg/min, 33.1 mls/hr Documented by: [id number] Cosigned by: [id number] Admin: 04/05/21 17:05 Dose: 50 mcg/kg/min, 33.1 mls/hr Documented by: [id number] Cosigned by: [id number] Titration: 04/05/21 17:00 Dose: 50 mcg/kg/min, 33.1 mls/hr Documented by: [id number] Cosigned by: [id number] Admin: 04/05/21 13:58 Dose: 50 mcg/kg/min, 33.1 mls/hr Documented by: [id number] Titration: 04/05/21 12:10 Dose: 50 mcg/kg/min, 33.1 mls/hr Documented by: [id number] Cosigned by: [id number] Admin: 04/05/21 10:41 Dose: 50 mcg/kg/min, 33.1 mls/hr Documented by: [id number] Cosigned by: [id number] Titration: 04/05/21 10:13 Dose: 50 mcg/kg/min, 33.1 mls/hr Documented by: [id number] Cosigned by: [id number] Admin: 04/05/21 07:11 Dose: 50 mcg/kg/min, 33.1 mls/hr Documented by: [id number] Cosigned by: [id number] Titration: 04/05/21 07:11 Dose: 50 mcg/kg/min, 33.1 mls/hr Documented by: [id number] Cosigned by: [id number] Titration: 04/05/21 07:09 Dose: 50 mcg/kg/min, 33.1 mls/hr Documented by: [id number] Cosigned by: [id number] Admin: 04/05/21 05:59 Dose: 50 mcg/kg/min, 33.1 mls/hr Documented by: [id number] Cosigned by: [id number] Titration: 04/05/21 05:59 Dose: 50 mcg/kg/min, 33.1 mls/hr Documented by: [id number] Cosigned by: [id number] Admin: 04/05/21 03:41 Dose: Not Given Documented by: [id number] Admin: 04/05/21 03:40 Dose: Not Given Documented by: [id number] Admin: 04/05/21 03:40 Dose: Not Given Documented by: [id number] Admin: 04/05/21 03:39 Dose: Not Given Documented by: [id number] Admin: 04/05/21 03:39 Dose: Not Given Documented by: [id number] Admin: 04/05/21 03:39 Dose: Not Given Documented by: [id number] Admin: 04/05/21 03:38 Dose: 50 mcg/kg/min, 33.1 mls/hr Documented by: [id number] Cosigned by: [id number] Titration: 04/05/21 03:38 Dose: 50 mcg/kg/min, 33.1 mls/hr Documented by: [id number] Cosigned by: [id number] Admin: 04/05/21 03:37 Dose: 50 mcg/kg/min, 33.1 mls/hr Documented by: [id number] Cosigned by: [id number] Titration: 04/05/21 03:12 Dose: 50 mcg/kg/min, 33.1 mls/hr Documented by: [id number] Cosigned by: [id number] Admin: 04/05/21 00:10 Dose: 50 mcg/kg/min, 33.1 mls/hr Documented by: [id number] Cosigned by: [id number] Titration: 04/04/21 22:41 Dose: 35 mcg/kg/min, 23.2 mls/hr Documented by: [id number] Cosigned by: [id number] Titration: 04/04/21 19:06 Dose: 35 mcg/kg/min, 23.2 mls/hr Documented by: [id number] Cosigned by: [id number] Admin: 04/04/21 18:22 Dose: 35 mcg/kg/min, 23.2 mls/hr Documented by: [id number] Cosigned by: [id number] Titration: 04/04/21 17:41 Dose: 35 mcg/kg/min, 23.2 mls/hr Documented by: [id number] Cosigned by: [id number] Admin: 04/04/21 13:22 Dose: 35 mcg/kg/min, 23.2 mls/hr Documented by: [id number] Cosigned by: [id number] Titration: 04/04/21 13:22 Dose: 35 mcg/kg/min, 23.2 mls/hr Documented by: [id number] Cosigned by: [id number] Admin: 04/04/21 09:23 Dose: 35 mcg/kg/min, 23.2 mls/hr Documented by: [id number] Cosigned by: [id number] Titration: 04/04/21 09:23 Dose: 35 mcg/kg/min, 23.2 mls/hr Documented by: [id number] Cosigned by: [id number] Titration: 04/04/21 07:13 Dose: 35 mcg/kg/min, 23.2 mls/hr Documented by: [id number] Cosigned by: [id number] Admin: 04/04/21 05:46 Dose: 35 mcg/kg/min, 23.2 mls/hr Documented by: [id number] Cosigned by: [id number] Titration: 04/04/21 04:51 Dose: 35 mcg/kg/min, 23.2 mls/hr Documented by: [id number] Cosigned by: [id number] Admin: 04/04/21 00:32 Dose: 35 mcg/kg/min, 23.2 mls/hr Documented by: [id number] Cosigned by: [id number] Titration: 04/04/21 00:28 Dose: 35 mcg/kg/min, 23.2 mls/hr Documented by: [id number] Cosigned by: [id number] Admin: 04/03/21 20:09 Dose: 35 mcg/kg/min, 23.2 mls/hr Documented by: [id number] Cosigned by: [id number] Titration: 04/03/21 20:07 Dose: 35 mcg/kg/min, 23.2 mls/hr Documented by: [id number] Cosigned by: [id number] Titration: 04/03/21 19:15 Dose: 35 mcg/kg/min, 23.2 mls/hr Documented by: [id number] Cosigned by: [id number] Admin: 04/03/21 15:48 Dose: 35 mcg/kg/min, 23.2 mls/hr Documented by: [id number] Cosigned by: [id number] Titration: 04/03/21 15:48 Dose: 35 mcg/kg/min, 23.2 mls/hr Documented by: [id number] Cosigned by: [id number] Titration: 04/03/21 14:52 Dose: 35 mcg/kg/min, 23.2 mls/hr Documented by: [id number] Titration: 04/03/21 12:35 Dose: 40 mcg/kg/min, 26.5 mls/hr Documented by: [id number] Titration: 04/03/21 12:15 Dose: 35 mcg/kg/min, 23.2 mls/hr Documented by: [id number] Admin: 04/03/21 12:02 Dose: 30 mcg/kg/min, 19.9 mls/hr Documented by: [id number] Cosigned by: [id number] Sodium Chloride (Nss 1000ml) 1,000 mls @ 30 mls/hr IV .Q24H MARCAI Stop: 05/03/21 15:44 Last Admin: 04/07/21 23:49 Dose: Not Given Documented by: [id number] Infusion: 04/07/21 22:07 Dose: 0 mls/hr Documented by: [id number] Infusion: 04/07/21 22:06 Dose: 0 mls/hr Documented by: [id number] Admin: 04/06/21 16:21 Dose: 30 mls/hr Documented by: [id number] Infusion: 04/06/21 16:21 Dose: 30 mls/hr Documented by: [id number] Infusion: 04/05/21 18:57 Dose: 30 mls/hr Documented by: [id number] Admin: 04/05/21 15:25 Dose: 30 mls/hr Documented by: [id number] Infusion: 04/05/21 15:25 Dose: 30 mls/hr Documented by: [id number] Admin: 04/04/21 17:13 Dose: 30 mls/hr Documented by: [id number] Infusion: 04/04/21 17:13 Dose: 30 mls/hr Documented by: [id number] Admin: 04/03/21 15:48 Dose: 30 mls/hr Documented by: [id number] Furosemide 20 mg/ Syringe 2 mls @ 4 mls/min IV ONE ONE Stop: 04/03/21 19:16 Last Admin: 04/03/21 20:09 Dose: 4 mls/min Documented by: [id number] Phenylephrine HCl 20 mg/ (Dextrose) 502 mls @ 17.5 mls/hr IV .Q24H MARCIA; Protocol Stop: 05/06/21 03:44 Last Titration: 04/08/21 14:11 Dose: 0 mcg/kg/min, 0 mls/hr Documented by: [id number] Admin: 04/08/21 14:06 Dose: Not Given Documented by: [id number] Admin: 04/08/21 14:06 Dose: Not Given Documented by: [id number] Admin: 04/08/21 14:06 Dose: Not Given Documented by: [id number] Admin: 04/08/21 14:05 Dose: Not Given Documented by: [id number] Admin: 04/08/21 14:05 Dose: Not Given Documented by: [id number] Admin: 04/08/21 14:05 Dose: Not Given Documented by: [id number] Admin: 04/08/21 14:05 Dose: Not Given Documented by: [id number] Admin: 04/08/21 14:05 Dose: Not Given Documented by: [id number] Admin: 04/08/21 14:05 Dose: Not Given Documented by: [id number] Admin: 04/08/21 14:05 Dose: Not Given Documented by: [id number] Titration: 04/08/21 07:10 Dose: 0.1 mcg/kg/min, 17.5 mls/hr Documented by: [id number] Cosigned by: [id number] Titration: 04/08/21 03:47 Dose: 0.1 mcg/kg/min, 17.5 mls/hr Documented by: [id number] Titration: 04/08/21 01:22 Dose: 0.2 mcg/kg/min, 35 mls/hr Documented by: [id number] Titration: 04/08/21 00:40 Dose: 0.3 mcg/kg/min, 52.5 mls/hr Documented by: [id number] Titration: 04/08/21 00:05 Dose: 0.5 mcg/kg/min, 87.5 mls/hr Documented by: [id number] Admin: 04/08/21 00:04 Dose: 0.7 mcg/kg/min, 122.5 mls/hr Documented by: [id number] Cosigned by: [id number] Titration: 04/08/21 00:04 Dose: 0.7 mcg/kg/min, 122.5 mls/hr Documented by: [id number] Cosigned by: [id number] Admin: 04/07/21 21:17 Dose: Not Given Documented by: [id number] Admin: 04/07/21 20:51 Dose: Not Given Documented by: [id number] Titration: 04/07/21 20:43 Dose: 0.7 mcg/kg/min, 122.5 mls/hr Documented by: [id number] Admin: 04/07/21 20:10 Dose: 0.5 mcg/kg/min, 87.5 mls/hr Documented by: [id number] Cosigned by: [id number] Titration: 04/07/21 14:14 Dose: 0 mcg/kg/min, 0 mls/hr Documented by: [id number] Titration: 04/06/21 08:10 Dose: 0 mcg/kg/min, 0 mls/hr Documented by: [id number] Titration: 04/06/21 07:02 Dose: 0.5 mcg/kg/min, 87.5 mls/hr Documented by: [id number] Cosigned by: [id number] Admin: 04/06/21 05:50 Dose: 0.5 mcg/kg/min, 87.5 mls/hr Documented by: [id number] Cosigned by: [id number] Admin: 04/06/21 04:12 Dose: Not Given Documented by: [id number] Furosemide 40 mg/ Syringe 4 mls @ 4 mls/min IV ONE ONE Stop: 04/06/21 09:55 Last Admin: 04/06/21 12:02 Dose: 4 mls/min Documented by: [id number] Dexmedetomidine HCl 200 mcg/ (Sodium Chloride) 50 mls @ 8.775 mls/hr IV .Q5H42M [facility]; Protocol Stop: 04/10/21 10:14 Last Admin: 04/08/21 14:07 Dose: Not Given Documented by: [id number] Admin: 04/08/21 01:17 Dose: Not Given Documented by: [id number] Admin: 04/07/21 22:07 Dose: Not Given Documented by: [id number] Admin: 04/07/21 15:33 Dose: Not Given Documented by: [id number] Admin: 04/07/21 15:33 Dose: Not Given Documented by: [id number] Titration: 04/07/21 14:33 Dose: 0 mcg/kg/hr, 0 mls/hr Documented by: [id number] Admin: 04/07/21 11:20 Dose: 0.6 mcg/kg/hr, 17.6 mls/hr Documented by: [id number] Cosigned by: [id number] Titration: 04/07/21 10:57 Dose: 0.6 mcg/kg/hr, 17.6 mls/hr Documented by: [id number] Cosigned by: [id number] Admin: 04/07/21 10:52 Dose: Not Given Documented by: [id number] Admin: 04/07/21 10:52 Dose: Not Given Documented by: [id number] Admin: 04/07/21 10:52 Dose: Not Given Documented by: [id number] Admin: 04/07/21 10:51 Dose: Not Given Documented by: [id number] Titration: 04/07/21 09:28 Dose: 0.6 mcg/kg/hr, 17.6 mls/hr Documented by: [id number] Titration: 04/07/21 08:41 Dose: 0.5 mcg/kg/hr, 14.6 mls/hr Documented by: [id number] Admin: 04/07/21 07:37 Dose: 0.4 mcg/kg/hr, 11.7 mls/hr Documented by: [id number] Cosigned by: [id number] Titration: 04/07/21 07:37 Dose: 0.4 mcg/kg/hr, 11.7 mls/hr Documented by: [id number] Cosigned by: [id number] Titration: 04/07/21 07:07 Dose: 0.4 mcg/kg/hr, 11.7 mls/hr Documented by: [id number] Cosigned by: [id number] Admin: 04/07/21 01:28 Dose: 0.4 mcg/kg/hr, 11.7 mls/hr Documented by: [id number] Cosigned by: [id number] Titration: 04/07/21 01:28 Dose: 0.4 mcg/kg/hr, 11.7 mls/hr Documented by: [id number] Cosigned by: [id number] Admin: 04/06/21 23:09 Dose: 0.4 mcg/kg/hr, 11.7 mls/hr Documented by: [id number] Cosigned by: [id number] Admin: 04/06/21 23:08 Dose: Not Given Documented by: [id number] Titration: 04/06/21 22:23 Dose: 0.4 mcg/kg/hr, 11.7 mls/hr Documented by: [id number] Cosigned by: [id number] Titration: 04/06/21 19:01 Dose: 0.4 mcg/kg/hr, 11.7 mls/hr Documented by: [id number] Cosigned by: [id number] Admin: 04/06/21 18:06 Dose: 0.4 mcg/kg/hr, 11.7 mls/hr Documented by: [id number] Cosigned by: [id number] Titration: 04/06/21 18:06 Dose: 0.4 mcg/kg/hr, 11.7 mls/hr Documented by: [id number] Cosigned by: [id number] Admin: 04/06/21 16:50 Dose: Not Given Documented by: [id number] Titration: 04/06/21 15:30 Dose: 0.4 mcg/kg/hr, 11.7 mls/hr Documented by: [id number] Admin: 04/06/21 14:25 Dose: 0.5 mcg/kg/hr, 14.6 mls/hr Documented by: [id number] Cosigned by: [id number] Titration: 04/06/21 14:25 Dose: 0.5 mcg/kg/hr, 14.6 mls/hr Documented by: [id number] Cosigned by: [id number] Titration: 04/06/21 14:25 Dose: 0.5 mcg/kg/hr, 14.6 mls/hr Documented by: [id number] Titration: 04/06/21 12:30 Dose: 0.4 mcg/kg/hr, 11.7 mls/hr Documented by: [id number] Titration: 04/06/21 12:15 Dose: 0.3 mcg/kg/hr, 8.8 mls/hr Documented by: [id number] Admin: 04/06/21 10:53 Dose: 0.2 mcg/kg/hr, 5.9 mls/hr Documented by: [id number] Cosigned by: [id number] Cefepime HCl 2,000 mg/ Syringe 20 mls @ 5 mls/min IV Q12H [facility]; Protocol Stop: 04/13/21 13:59 Last Admin: 04/07/21 02:31 Dose: 5 mls/min Documented by: [id number] Admin: 04/06/21 14:25 Dose: 5 mls/min Documented by: [id number] Vancomycin HCl 2,750 mg/ (Sodium Chloride) 555 mls @ 200 mls/hr IV NOW ONE Stop: 04/06/21 13:01 Last Infusion: 04/06/21 14:34 Dose: 0 mls/hr Documented by: [id number] Admin: 04/06/21 10:53 Dose: 200 mls/hr Documented by: [id number] Furosemide 40 mg/ Syringe 4 mls @ 4 mls/min IV ONE ONE Stop: 04/07/21 10:01 Last Admin: 04/07/21 11:20 Dose: 4 mls/min Documented by: [id number] Esmolol HCl (Brevibloc) 2,500 mg in 250 mls @ 70.98 mls/hr IV .Q3H32M [facility]; Protocol Stop: 04/08/21 13:00 Last Admin: 04/08/21 14:01 Dose: Not Given Documented by: [id number] Titration: 04/08/21 11:45 Dose: 0 mcg/kg/min, 0 mls/hr Documented by: [id number] Admin: 04/08/21 08:13 Dose: 100 mcg/kg/min, 71 mls/hr Documented by: [id number] Cosigned by: [id number] Titration: 04/08/21 07:45 Dose: 100 mcg/kg/min, 71 mls/hr Documented by: [id number] Cosigned by: [id number] Titration: 04/08/21 07:10 Dose: 100 mcg/kg/min, 71 mls/hr Documented by: [id number] Cosigned by: [id number] Admin: 04/08/21 04:13 Dose: 100 mcg/kg/min, 71 mls/hr Documented by: [id number] Cosigned by: [id number] Titration: 04/08/21 03:35 Dose: 100 mcg/kg/min, 71 mls/hr Documented by: [id number] Cosigned by: [id number] Admin: 04/08/21 00:03 Dose: 100 mcg/kg/min, 71 mls/hr Documented by: [id number] Cosigned by: [id number] Titration: 04/07/21 23:51 Dose: 100 mcg/kg/min, 71 mls/hr Documented by: [id number] Cosigned by: [id number] Titration: 04/07/21 20:39 Dose: 100 mcg/kg/min, 71 mls/hr Documented by: [id number] Admin: 04/07/21 20:00 Dose: 50 mcg/kg/min, 35.5 mls/hr Documented by: [id number] Cosigned by: [id number] Amiodarone HCl/Dextrose (Nexterone / D5w) 150 mg in 100 mls @ 600 mls/hr IV NOW STA Stop: 04/07/21 20:51 Last Infusion: 04/07/21 22:03 Dose: 0 mls/hr Documented by: [id number] Cosigned by: [id number] Admin: 04/07/21 20:52 Dose: 600 mls/hr Documented by: [id number] Cosigned by: [id number] Amiodarone HCl/Dextrose (Nexterone / D5w) 150 mg in 100 mls @ 600 mls/hr IV NOW STA Stop: 04/07/21 20:55 Last Infusion: 04/07/21 22:03 Dose: 0 mls/hr Documented by: [id number] Cosigned by: [id number] Admin: 04/07/21 21:12 Dose: 600 mls/hr Documented by: [id number] Cosigned by: [id number] Amiodarone HCl/Dextrose (Nexterone / D5w) 150 mg in 100 mls @ 600 mls/hr IV NOW STA Stop: 04/07/21 20:55 Last Infusion: 04/07/21 22:03 Dose: 0 mls/hr Documented by: [id number] Cosigned by: [id number] Admin: 04/07/21 21:12 Dose: 600 mls/hr Documented by: [id number] Cosigned by: [id number] Amiodarone HCl/Dextrose (Nexterone / D5w) 360 mg in 200 mls @ 33.333 mls/hr IV ONE ONE Stop: 04/08/21 02:55 Last Infusion: 04/08/21 03:53 Dose: 0 mls/hr Documented by: [id number] Cosigned by: [id number] Admin: 04/07/21 21:12 Dose: 33.3 mls/hr Documented by: [id number] Cosigned by: [id number] Heparin Sodium/Dextrose (Heparin Sodium/Dextrose) 25,000 units in 500 mls @ 37 mls/hr IV .[id number] [facility]; Protocol Stop: 05/07/21 22:29 Last Titration: 04/08/21 14:11 Dose: 0 units/hr, 0 mls/hr Documented by: [id number] Cosigned by: [id number] Titration: 04/08/21 07:54 Dose: 1,850 units/hr, 37 mls/hr Documented by: [id number] Cosigned by: [id number] Admin: 04/08/21 00:03 Dose: 1,650 units/hr, 33 mls/hr Documented by: [id number] Cosigned by: [id number] Potassium Chloride (K Miko / Wtr) 10 meq in 100 mls @ 100 mls/hr IV Q1H [facility] Stop: 04/08/21 02:04 Last Infusion: 04/08/21 06:15 Dose: 0 mls/hr Documented by: [id number] Admin: 04/08/21 04:51 Dose: 100 mls/hr Documented by: [id number] Infusion: 04/08/21 04:46 Dose: 100 mls/hr Documented by: [id number] Admin: 04/08/21 03:46 Dose: 100 mls/hr Documented by: [id number] Infusion: 04/08/21 02:58 Dose: 100 mls/hr Documented by: [id number] Admin: 04/08/21 01:58 Dose: 100 mls/hr Documented by: [id number] Infusion: 04/08/21 01:02 Dose: 100 mls/hr Documented by: [id number] Admin: 04/08/21 00:02 Dose: 100 mls/hr Documented by: [id number] Albumin Human (Albumin 25%) 12.5 gm in 50 mls @ 50 mls/hr IV Q1H [facility] Stop: 04/08/21 13:59 Last Infusion: 04/08/21 13:38 Dose: 0 mls/hr Documented by: [id number] Admin: 04/08/21 12:38 Dose: 50 mls/hr Documented by: [id number] Infusion: 04/08/21 12:38 Dose: 50 mls/hr Documented by: [id number] Admin: 04/08/21 12:37 Dose: 50 mls/hr Documented by: [id number] Infusion: 04/08/21 12:37 Dose: 50 mls/hr Documented by: [id number] Admin: 04/08/21 11:44 Dose: 50 mls/hr Documented by: [id number] Infusion: 04/08/21 11:44 Dose: 50 mls/hr Documented by: [id number] Admin: 04/08/21 11:42 Dose: 50 mls/hr Documented by: [id number] Furosemide 40 mg/ Syringe 4 mls @ 4 mls/min IV TODAY@1400 [facility] Stop: 04/08/21 14:04 Last Admin: 04/08/21 13:26 Dose: 4 mls/min Documented by: [id number] Potassium Phosphate 15 mmol/ (Sodium Chloride) 255 mls @ 88 mls/hr IV ONE ONE Stop: 04/08/21 12:53 Last Infusion: 04/08/21 14:11 Dose: 0 mls/hr Documented by: [id number] Admin: 04/08/21 10:28 Dose: 88 mls/hr Documented by: [id number] Vancomycin HCl 2,750 mg/ (Sodium Chloride) 555 mls @ 200 mls/hr IV NOW STA Stop: 04/09/21 12:08 Last Infusion: 04/09/21 12:41 Dose: 0 mls/hr Documented by: [id number] Admin: 04/09/21 10:17 Dose: 200 mls/hr Documented by: [id number] Bumetanide 1 mg/ Syringe 4 mls @ 4 mls/min IV ONE ONE Stop: 04/09/21 11:12 Last Admin: 04/09/21 11:49 Dose: 4 mls/min Documented by: [id number] Caspofungin 70 mg/ Sodium (Chloride) 260 mls @ 250 mls/hr IV NOW ONE Stop: 04/09/21 23:32 Last Infusion: 04/10/21 03:35 Dose: 0 mls/hr Documented by: [id number] Infusion: 04/10/21 03:35 Dose: 0 mls/hr Documented by: [id number] Admin: 04/09/21 23:02 Dose: 250 mls/hr Documented by: [id number] Insulin Aspart (Insulin Aspart 100 Units/Ml 3 Ml Pen) 0 units SC Q4 [facility] Stop: 04/07/21 07:59 Last Admin: 04/07/21 04:31 Dose: 1 units Documented by: [id number] Cosigned by: [id number] Admin: 04/07/21 01:05 Dose: Not Given Documented by: [id number] Cosigned by: [id number] Admin: 04/06/21 20:09 Dose: 2 units Documented by: [id number] Cosigned by: [id number] Admin: 04/06/21 16:21 Dose: 4 units Documented by: [id number] Cosigned by: [id number] Admin: 04/06/21 11:29 Dose: 5 units Documented by: [id number] Cosigned by: [id number] Admin: 04/06/21 07:50 Dose: 6 units Documented by: [id number] Cosigned by: [id number] Admin: 04/06/21 04:12 Dose: Not Given Documented by: [id number] Cosigned by: [id number] Admin: 04/06/21 00:25 Dose: 1 units Documented by: [id number] Cosigned by: [id number] Admin: 04/05/21 20:44 Dose: 3 units Documented by: [id number] Cosigned by: [id number] Admin: 04/05/21 17:04 Dose: 8 units Documented by: [id number] Cosigned by: [id number] Admin: 04/05/21 11:30 Dose: 3 units Documented by: [id number] Cosigned by: [id number] Admin: 04/05/21 07:49 Dose: 2 units Documented by: [id number] Cosigned by: [id number] Admin: 04/05/21 04:00 Dose: 2 units Documented by: [id number] Cosigned by: [id number] Admin: 04/05/21 00:12 Dose: 2 units Documented by: [id number] Cosigned by: [id number] Admin: 04/04/21 20:32 Dose: 4 units Documented by: [id number] Cosigned by: [id number] Admin: 04/04/21 17:13 Dose: Not Given Documented by: [id number] Admin: 04/04/21 11:52 Dose: 9 units Documented by: [id number] Cosigned by: [id number] Admin: 04/04/21 08:27 Dose: Not Given Documented by: [id number] Admin: 04/04/21 04:16 Dose: 1 units Documented by: [id number] Cosigned by: [id number] Admin: 04/04/21 00:34 Dose: 3 units Documented by: [id number] Cosigned by: [id number] Admin: 04/03/21 20:27 Dose: 4 units Documented by: [id number] Cosigned by: [id number] Admin: 04/03/21 17:15 Dose: 5 units Documented by: [id number] Cosigned by: [id number] Admin: 04/03/21 12:46 Dose: 7 units Documented by: [id number] Cosigned by: [id number] Admin: 04/03/21 08:05 Dose: Not Given Documented by: [id number] Admin: 04/03/21 04:10 Dose: 1 units Documented by: [id number] Cosigned by: [id number] Admin: 04/03/21 00:04 Dose: 3 units Documented by: [id number] Cosigned by: [id number] Admin: 04/02/21 20:30 Dose: 5 units Documented by: [id number] Cosigned by: [id number] Admin: 04/02/21 16:30 Dose: 7 units Documented by: [id number] Cosigned by: [id number] Admin: 04/02/21 12:15 Dose: 5 units Documented by: [id number] Cosigned by: [id number] Admin: 04/02/21 08:42 Dose: 1 units Documented by: [id number] Cosigned by: [id number] Admin: 04/02/21 04:15 Dose: Not Given Documented by: [id number] Admin: 04/02/21 00:34 Dose: 1 units Documented by: [id number] Cosigned by: [id number] Admin: 04/01/21 20:01 Dose: Not Given Documented by: [id number] Admin: 04/01/21 17:23 Dose: 1 units Documented by: [id number] Cosigned by: [id number] Admin: 04/01/21 12:16 Dose: 1 units Documented by: [id number] Cosigned by: [id number] Admin: 04/01/21 09:04 Dose: Not Given Documented by: [id number] Admin: 04/01/21 05:01 Dose: Not Given Documented by: [id number] Admin: 04/01/21 00:20 Dose: 3 units Documented by: [id number] Cosigned by: [id number] Admin: 03/31/21 20:57 Dose: 6 units Documented by: [id number] Cosigned by: [id number] Admin: 03/31/21 16:26 Dose: 7 units Documented by: [id number] Cosigned by: [id number] Admin: 03/31/21 12:47 Dose: 7 units Documented by: [id number] Cosigned by: [id number] Admin: 03/31/21 08:19 Dose: 4 units Documented by: [id number] Cosigned by: [id number] Admin: 03/31/21 04:41 Dose: 5 units Documented by: [id number] Cosigned by: [id number] Admin: 03/31/21 00:47 Dose: 7 units Documented by: [id number] Cosigned by: [id number] Admin: 03/30/21 21:38 Dose: 8 units Documented by: [id number] Cosigned by: [id number] Admin: 03/30/21 15:14 Dose: 4 units Documented by: [id number] Cosigned by: [id number] Admin: 03/30/21 12:11 Dose: 8 units Documented by: [id number] Cosigned by: [id number] Admin: 03/30/21 08:08 Dose: 2 units Documented by: [id number] Cosigned by: [id number] Admin: 03/30/21 04:45 Dose: Not Given Documented by: [id number] Admin: 03/30/21 00:22 Dose: 2 units Documented by: [id number] Cosigned by: [id number] Admin: 03/29/21 20:22 Dose: 4 units Documented by: [id number] Cosigned by: [id number] Admin: 03/29/21 15:59 Dose: 6 units Documented by: [id number] Cosigned by: [id number] Admin: 03/29/21 15:58 Dose: Not Given Documented by: [id number] Ioversol (Optiray 320 100ml) 94 ml IV ONCE ONE Stop: 04/09/21 19:32 Last Admin: 04/09/21 19:32 Dose: 1 ml Documented by: [id number] Lactulose (Lactulose Syrup 30 Gm/45 Ml Udp) 30 gm PO NOW STA Stop: 04/05/21 10:06 Last Admin: 04/05/21 11:25 Dose: 30 gm Documented by: [id number] Magnesium Oxide (Magnesium Oxide 400 Mg Tab) 400 mg PO QAM [facility] Stop: 04/20/21 08:59 Last Admin: 03/28/21 06:51 Dose: Not Given Documented by: [id number] Admin: 03/26/21 08:27 Dose: 400 mg Documented by: [id number] Admin: 03/25/21 07:25 Dose: 400 mg Documented by: [id number] Admin: 03/24/21 08:26 Dose: 400 mg Documented by: [id number] Admin: 03/23/21 08:11 Dose: 400 mg Documented by: [id number] Admin: 03/22/21 08:32 Dose: 400 mg Documented by: [id number] Admin: 03/21/21 08:05 Dose: 400 mg Documented by: [id number] Methadone HCl (Methadone Hcl 5 Mg Tab) 5 mg PO Q12H [facility] Stop: 04/13/21 09:59 Last Admin: 03/30/21 21:49 Dose: 5 mg Documented by: [id number] Admin: 03/30/21 10:22 Dose: 5 mg Documented by: [id number] Methadone HCl (Methadone Hcl 5 Mg Tab) 10 mg PO Q12H [facility] Stop: 04/14/21 09:40 Last Admin: 03/31/21 21:12 Dose: 10 mg Documented by: [id number] Admin: 03/31/21 10:33 Dose: 10 mg Documented by: [id number] Methylnaltrexone [place] (Methylnaltrexone [place] 12 Mg/0.6 Ml Vial) 12 mg SQ NOW ONE Stop: 04/06/21 10:16 Last Admin: 04/06/21 10:54 Dose: 12 mg Documented by: [id number] Metoprolol Tartrate (Metoprolol Tartrate 1 Mg/Ml Vial) 5 mg IV NOW STA Stop: 04/06/21 02:47 Last Admin: 04/06/21 04:08 Dose: 5 mg Documented by: [id number] Metoprolol Tartrate (Metoprolol Tartrate 1 Mg/Ml Vial) Confirm Administered Dose 5 mg IV .STK-MED ONE Stop: 04/06/21 17:33 Last Admin: 04/06/21 17:58 Dose: Not Given Documented by: [id number] Metoprolol Tartrate (Metoprolol Tartrate 1 Mg/Ml Vial) 5 mg IV NOW STA Stop: 04/06/21 17:33 Last Admin: 04/06/21 17:30 Dose: 5 mg Documented by: [id number] Metoprolol Tartrate (Metoprolol Tartrate 1 Mg/Ml Vial) 5 mg IV NOW STA Stop: 04/06/21 18:01 Last Admin: 04/06/21 18:06 Dose: 5 mg Documented by: [id number] Metoprolol Tartrate (Metoprolol Tartrate 25 Mg Tab) 25 mg PO BID [facility] Stop: 05/07/21 09:59 Last Admin: 04/07/21 11:20 Dose: 25 mg Documented by: [id number] Metoprolol Tartrate (Metoprolol Tartrate 25 Mg Tab) 25 mg PO BID [facility] Stop: 05/08/21 10:44 Last Admin: 04/09/21 10:31 Dose: Not Given Documented by: [id number] Admin: 04/08/21 20:15 Dose: 25 mg Documented by: [id number] Admin: 04/08/21 11:42 Dose: 25 mg Documented by: [id number] Metoprolol Tartrate (Metoprolol Tartrate 50 Mg Tab) 50 mg PO BID [facility] Stop: 05/09/21 11:14 Last Admin: 04/09/21 23:15 Dose: Not Given Documented by: [id number] Admin: 04/09/21 11:42 Dose: Not Given Documented by: [id number] Metoprolol Tartrate (Metoprolol Tartrate 1 Mg/Ml Vial) 5 mg IV NOW STA Stop: 04/10/21 00:51 Last Admin: 04/10/21 01:27 Dose: 5 mg Documented by: [id number] Metoprolol Tartrate (Metoprolol Tartrate 1 Mg/Ml Vial) 5 mg IV NOW STA Stop: 04/10/21 01:53 Last Admin: 04/10/21 02:37 Dose: 5 mg Documented by: [id number] Midazolam HCl (Midazolam Hcl 125mg/250ml D5w) Confirm Administered Dose 125 mg .ROUTE .STK-MED ONE Stop: 03/27/21 07:43 Last Admin: 03/27/21 11:08 Dose: Not Given Documented by: [id number] Midazolam HCl (Midazolam Bolus From Bag) 2 mg IV Q60M PRN PRN Reason: Sedation Stop: 04/26/21 08:26 Last Admin: 03/28/21 05:49 Dose: 2 mg Documented by: [id number] Midazolam HCl (Midazolam Bolus From Bag) 2 mg IV Q60M PRN PRN Reason: Sedation Stop: 04/28/21 09:28 Last Admin: 04/05/21 07:24 Dose: 2 mg Documented by: [id number] Admin: 04/04/21 15:38 Dose: 2 mg Documented by: [id number] Admin: 04/04/21 12:32 Dose: 2 mg Documented by: [id number] Admin: 04/04/21 11:53 Dose: 2 mg Documented by: [id number] Admin: 04/04/21 11:10 Dose: 2 mg Documented by: [id number] Admin: 04/04/21 08:11 Dose: 2 mg Documented by: [id number] Admin: 04/04/21 06:05 Dose: 2 mg Documented by: [id number] Admin: 04/04/21 05:54 Dose: 2 mg Documented by: [id number] Admin: 04/04/21 05:40 Dose: 2 mg Documented by: [id number] Admin: 04/04/21 02:40 Dose: 2 mg Documented by: [id number] Admin: 04/04/21 01:00 Dose: 2 mg Documented by: [id number] Admin: 04/03/21 21:25 Dose: 2 mg Documented by: [id number] Admin: 04/03/21 12:30 Dose: 2 mg Documented by: [id number] Admin: 04/03/21 11:03 Dose: 2 mg Documented by: [id number] Admin: 04/02/21 12:45 Dose: 2 mg Documented by: [id number] Admin: 04/01/21 21:20 Dose: 2 mg Documented by: [id number] Admin: 04/01/21 20:00 Dose: 2 mg Documented by: [id number] Admin: 04/01/21 19:00 Dose: 2 mg Documented by: [id number] Admin: 03/31/21 09:30 Dose: 2 mg Documented by: [id number] Midazolam HCl (Midazolam Hcl 1 Mg/Ml 2ml Vial) 2 mg IV NOW STA Stop: 04/08/21 23:02 Last Admin: 04/08/21 23:09 Dose: 2 mg Documented by: [id number] Midazolam HCl (Midazolam Hcl 1 Mg/Ml 2ml Vial) Confirm Administered Dose 2 mg .ROUTE .STK-MED ONE Stop: 04/08/21 23:04 Last Admin: 04/08/21 23:21 Dose: Not Given Documented by: [id number] Midazolam HCl (Midazolam Hcl 1 Mg/Ml 2ml Vial) Confirm Administered Dose 2 mg .ROUTE .STK-MED ONE Stop: 04/09/21 03:59 Last Admin: 04/09/21 04:37 Dose: 2 mg Documented by: [id number] Midazolam HCl (Midazolam Hcl 1 Mg/Ml 2ml Vial) 2 mg IV NOW STA Stop: 04/09/21 06:07 Last Admin: 04/09/21 06:16 Dose: 2 mg Documented by: [id number] Midazolam HCl (Midazolam Hcl 1 Mg/Ml 2ml Vial) 2 mg IM NOW STA Stop: 04/09/21 06:08 Last Admin: 04/09/21 06:17 Dose: 2 mg Documented by: [id number] Midazolam HCl (Midazolam Hcl 1 Mg/Ml 2ml Vial) Confirm Administered Dose 2 mg .ROUTE .STK-MED ONE Stop: 04/09/21 06:08 Last Admin: 04/09/21 06:09 Dose: Not Given Documented by: [id number] Midazolam HCl (Midazolam Hcl 1 Mg/Ml 2ml Vial) 2 mg IV Q30M [facility] Stop: 04/09/21 18:01 Last Admin: 04/10/21 02:37 Dose: Not Given Documented by: [id number] Admin: 04/09/21 20:30 Dose: 2 mg Documented by: [id number] Admin: 04/09/21 20:00 Dose: 2 mg Documented by: [id number] Admin: 04/09/21 18:05 Dose: 2 mg Documented by: [id number] Admin: 04/09/21 18:05 Dose: 2 mg Documented by: [id number] Admin: 04/09/21 17:10 Dose: 2 mg Documented by: [id number] Midazolam HCl (Midazolam Hcl 1 Mg/Ml 2ml Vial) 2 mg IV NOW STA Stop: 04/09/21 23:38 Last Admin: 04/09/21 23:41 Dose: 2 mg Documented by: [id number] Midazolam HCl (Midazolam Hcl 1 Mg/Ml 2ml Vial) Confirm Administered Dose 2 mg .ROUTE .STK-MED ONE Stop: 04/09/21 23:38 Last Admin: 04/09/21 23:42 Dose: Not Given Documented by: [id number] Midazolam HCl (Midazolam Hcl 1 Mg/Ml 2ml Vial) 2 mg IV NOW STA Stop: 04/10/21 00:51 Last Admin: 04/10/21 01:28 Dose: 2 mg Documented by: [id number] Midazolam HCl (Midazolam Hcl 1 Mg/Ml 2ml Vial) 2 mg IV NOW STA Stop: 04/10/21 02:39 Last Admin: 04/10/21 03:38 Dose: 2 mg Documented by: [id number] Midazolam HCl (Midazolam Hcl 1 Mg/Ml 2ml Vial) 2 mg IV NOW STA Stop: 04/10/21 02:46 Last Admin: 04/10/21 03:38 Dose: 2 mg Documented by: [id number] Mineral Oil (Mineral Oil 30 Ml Udc) 60 ml PO NOW ONE Stop: 04/06/21 10:16 Last Admin: 04/06/21 10:54 Dose: 60 ml Documented by: [id number] Miscellaneous (Rapid Sequence Induction Bag) Confirm Administered Dose 1 ea .ROUTE .STK-MED ONE Stop: 03/27/21 07:38 Last Admin: 03/27/21 11:09 Dose: Not Given Documented by: [id number] Miscellaneous (Heparin Drip - Stop Order) 1 ea N/A NOW STA Stop: 04/08/21 10:39 Last Admin: 04/08/21 11:43 Dose: 1 ea Documented by: [id number] Miscellaneous (Esmolol - Stop Order) 1 ea N/A TODAY@1300 [facility] Stop: 04/08/21 13:01 Last Admin: 04/08/21 12:50 Dose: 1 ea Documented by: [id number] Multi-Ingredient Cream (Artificial Tears Op Oint 3.5 Gm Tube) 1 appln OP Q4H MARCIA Stop: 04/30/21 10:44 Last Admin: 04/06/21 04:11 Dose: 1 appln Documented by: [id number] Admin: 04/06/21 00:26 Dose: 1 appln Documented by: [id number] Admin: 04/05/21 17:46 Dose: 1 appln Documented by: [id number] Admin: 04/05/21 15:25 Dose: 1 appln Documented by: [id number] Admin: 04/05/21 10:41 Dose: 1 appln Documented by: [id number] Admin: 04/05/21 06:00 Dose: 1 appln Documented by: [id number] Admin: 04/05/21 03:23 Dose: 1 appln Documented by: [id number] Admin: 04/05/21 00:11 Dose: 1 appln Documented by: [id number] Admin: 04/04/21 17:14 Dose: 1 appln Documented by: [id number] Admin: 04/04/21 13:23 Dose: 1 appln Documented by: [id number] Admin: 04/04/21 09:23 Dose: 1 appln Documented by: [id number] Admin: 04/04/21 06:30 Dose: 1 appln Documented by: [id number] Admin: 04/04/21 04:16 Dose: 1 appln Documented by: [id number] Admin: 04/03/21 23:19 Dose: 1 appln Documented by: [id number] Admin: 04/03/21 18:53 Dose: 1 appln Documented by: [id number] Admin: 04/03/21 14:41 Dose: 1 appln Documented by: [id number] Admin: 04/03/21 10:19 Dose: 1 appln Documented by: [id number] Admin: 04/03/21 05:09 Dose: 1 appln Documented by: [id number] Admin: 04/03/21 02:24 Dose: 1 appln Documented by: [id number] Admin: 04/02/21 23:15 Dose: 1 appln Documented by: [id number] Admin: 04/02/21 17:57 Dose: 1 appln Documented by: [id number] Admin: 04/02/21 16:00 Dose: 1 appln Documented by: [id number] Admin: 04/02/21 09:59 Dose: 1 appln Documented by: [id number] Admin: 04/02/21 05:22 Dose: Not Given Documented by: [id number] Admin: 04/02/21 02:05 Dose: 1 appln Documented by: [id number] Admin: 04/01/21 20:02 Dose: Not Given Documented by: [id number] Admin: 04/01/21 17:24 Dose: 1 appln Documented by: [id number] Admin: 04/01/21 15:56 Dose: 1 appln Documented by: [id number] Admin: 04/01/21 09:48 Dose: 1 appln Documented by: [id number] Admin: 04/01/21 08:38 Dose: 1 appln Documented by: [id number] Admin: 04/01/21 03:26 Dose: Not Given Documented by: [id number] Admin: 04/01/21 00:16 Dose: 1 appln Documented by: [id number] Admin: 03/31/21 18:22 Dose: 1 appln Documented by: [id number] Admin: 03/31/21 14:52 Dose: 1 appln Documented by: [id number] Admin: 03/31/21 11:16 Dose: 1 appln Documented by: [id number] Norepinephrine Bitartrate (Norepinephrine/D5w 8 Mg/508 Ml) Confirm Administered Dose 8 mg IV .STK-MED ONE Stop: 03/28/21 09:53 Last Admin: 03/28/21 11:48 Dose: Not Given Documented by: [id number] Norepinephrine Bitartrate (Norepinephrine/D5w 8 Mg/508 Ml) Confirm Administered Dose 8 mg IV .STK-MED ONE Stop: 03/28/21 11:01 Last Admin: 03/28/21 11:48 Dose: Not Given Documented by: [id number] Nutritional Formula (Peptamen Intense Vhp 1.0 Darrian 1,000 Ml Bag) 1,000 ml GT DAILY@1200 MARCIA; Protocol Stop: 04/26/21 14:32 Last Admin: 03/31/21 12:15 Dose: 1,000 ml Documented by: [id number] Admin: 03/30/21 10:23 Dose: 1,000 ml Documented by: [id number] Admin: 03/29/21 13:49 Dose: 1,000 ml Documented by: [id number] Admin: 03/28/21 14:36 Dose: 1,000 ml Documented by: [id number] Admin: 03/27/21 16:40 Dose: 1,000 ml Documented by: [id number] Nutritional Formula (Peptamen Intense Vhp 1.0 Darrian 1,000 Ml Bag) 1,000 ml OG UD MARCIA; Protocol Stop: 05/01/21 10:14 Last Admin: 04/09/21 04:39 Dose: 1,000 ml Documented by: [id number] Admin: 04/05/21 17:08 Dose: 1,000 ml Documented by: [id number] Admin: 04/02/21 02:41 Dose: 1,000 ml Documented by: [id number] Olanzapine (Olanzapine 5 Mg Tablet) 5 mg PO QAM MARCIA Stop: 05/07/21 12:29 Last Admin: 04/09/21 10:31 Dose: Not Given Documented by: [id number] Admin: 04/08/21 08:17 Dose: 5 mg Documented by: [id number] Admin: 04/07/21 13:11 Dose: 5 mg Documented by: [id number] Ondansetron HCl (Ondansetron Inj 2 Mg/Ml 2 Ml Vial) 4 mg IV NOW STA Stop: 03/20/21 12:57 Last Admin: 03/20/21 13:16 Dose: 4 mg Documented by: [id number] Patiromer (Patiromer Calcium Sorbitex 8.4 Gm Pack) 8.4 gm PO 1345 ONE Stop: 03/28/21 13:46 Last Admin: 03/28/21 14:37 Dose: 8.4 gm Documented by: [id number] Phenylephrine HCl (Phenylephrine 1% Na Spr 15 Ml Btl) 2 sprays NA Q6H PRN PRN Reason: nose bleed Stop: 04/25/21 15:36 Last Admin: 03/27/21 06:19 Dose: 2 sprays Documented by: [id number] Admin: 03/26/21 22:14 Dose: 2 sprays Documented by: [id number] Potassium Chloride (Potassium Chloride Crtab 20 Meq Tabcr) 20 meq PO BID MARCIA Stop: 04/19/21 20:59 Last Admin: 03/28/21 06:51 Dose: Not Given Documented by: [id number] Admin: 03/26/21 22:08 Dose: 20 meq Documented by: [id number] Admin: 03/26/21 08:28 Dose: 20 meq Documented by: [id number] Admin: 03/25/21 22:10 Dose: 20 meq Documented by: [id number] Admin: 03/25/21 07:24 Dose: 20 meq Documented by: [id number] Admin: 03/24/21 21:42 Dose: 20 meq Documented by: [id number] Admin: 03/24/21 08:26 Dose: 20 meq Documented by: [id number] Admin: 03/23/21 20:53 Dose: 20 meq Documented by: [id number] Admin: 03/23/21 08:12 Dose: 20 meq Documented by: [id number] Admin: 03/22/21 21:16 Dose: 20 meq Documented by: [id number] Admin: 03/22/21 08:32 Dose: 20 meq Documented by: [id number] Admin: 03/21/21 20:27 Dose: 20 meq Documented by: [id number] Admin: 03/21/21 08:05 Dose: 20 meq Documented by: [id number] Admin: 03/20/21 20:42 Dose: 20 meq Documented by: [id number] Propofol (Propofol Bolus From Bag) 20 mg IV Q5M PRN PRN Reason: Sedation Stop: 04/03/21 09:40 Last Admin: 04/02/21 12:16 Dose: 20 mg Documented by: [id number] Cosigned by: [id number] Admin: 04/01/21 21:20 Dose: 20 mg Documented by: [id number] Cosigned by: [id number] Admin: 04/01/21 19:40 Dose: 20 mg Documented by: [id number] Cosigned by: [id number] Admin: 04/01/21 19:35 Dose: 20 mg Documented by: [id number] Cosigned by: [id number] Admin: 04/01/21 19:30 Dose: 20 mg Documented by: [id number] Cosigned by: [id number] Propofol (Propofol Bolus From Bag) 20 mg IV Q5M PRN PRN Reason: Sedation Stop: 04/06/21 11:34 Last Admin: 04/05/21 11:45 Dose: 20 mg Documented by: [id number] Cosigned by: [id number] Admin: 04/05/21 07:23 Dose: 20 mg Documented by: [id number] Cosigned by: [id number] Admin: 04/04/21 15:38 Dose: 20 mg Documented by: [id number] Cosigned by: [id number] Admin: 04/04/21 12:32 Dose: 20 mg Documented by: [id number] Cosigned by: [id number] Admin: 04/04/21 11:52 Dose: 20 mg Documented by: [id number] Cosigned by: [id number] Admin: 04/04/21 11:10 Dose: 20 mg Documented by: [id number] Cosigned by: [id number] Admin: 04/04/21 08:11 Dose: 20 mg Documented by: [id number] Cosigned by: [id number] Admin: 04/04/21 06:05 Dose: 20 mg Documented by: [id number] Cosigned by: [id number] Admin: 04/04/21 05:54 Dose: 20 mg Documented by: [id number] Cosigned by: [id number] Admin: 04/04/21 05:40 Dose: 20 mg Documented by: [id number] Cosigned by: [id number] Admin: 04/04/21 02:40 Dose: 20 mg Documented by: [id number] Cosigned by: [id number] Admin: 04/04/21 01:00 Dose: 20 mg Documented by: [id number] Cosigned by: [id number] Admin: 04/03/21 22:10 Dose: 20 mg Documented by: [id number] Cosigned by: [id number] Admin: 04/03/21 21:25 Dose: 20 mg Documented by: [id number] Cosigned by: [id number] Admin: 04/03/21 12:25 Dose: 20 mg Documented by: [id number] Cosigned by: [id number] Sennosides (Sennosides 8.8 Mg/5 Ml Udc) [facility] [place] Stop: 05/06/21 08:59 Last Admin: 04/06/21 07:44 Dose: 8.8 mg Documented by: [id number] Sennosides (Sennosides 8.8 Mg/5 Ml Udc) 8.8 mg PO NOW ONE Stop: 04/06/21 10:01 Last Admin: 04/06/21 10:55 Dose: 8.8 mg Documented by: [id number] Sodium Polystyrene Sulfonate (Sodium Polystyrene Sulfonate 15g/60ml Susp) 30 gm PO NOW [facility] Stop: 03/28/21 08:01 Last Admin: 03/28/21 08:38 Dose: 30 gm Documented by: [id number] Vecuronium [place] (Vecuronium [place] 10 Mg Vial) Confirm Administered Dose 10 mg IV .STK-MED ONE Stop: 03/27/21 07:43 Last Admin: 03/27/21 07:55 Dose: 10 mg Documented by: [id number] Cosigned by: [id number] Vecuronium [place] (Vecuronium [place] 10 Mg Vial) Confirm Administered Dose 10 mg IV .STK-MED ONE Stop: 03/31/21 10:40 Last Admin: 03/31/21 10:45 Dose: 10 mg Documented by: [id number] Cosigned by: [id number] Vecuronium [place] (Vecuronium [place] 10 Mg Vial) 10 mg IV TODAY@104[facility] Stop: 03/31/21 10:46 Last Admin: 03/31/21 11:57 Dose: Not Given Documented by: [id number] Vecuronium [place] (Vecuronium [place] 10 Mg Vial) 5 mg IV NOW STA Stop: 04/01/21 10:33 Last Admin: 04/01/21 10:42 Dose: 5 mg Documented by: [id number] Cosigned by: [id number] Vecuronium [place] (Vecuronium [place] 10 Mg Vial) Confirm Administered Dose 10 mg IV .STK-MED ONE Stop: 04/01/21 13:02 Last Admin: 04/01/21 13:00 Dose: 10 mg Documented by: [id number] Cosigned by: [id number] Vecuronium [place] (Vecuronium [place] 10 Mg Vial) 10 mg IV NOW STA Stop: 04/01/21 19:42 Last Admin: 04/01/21 20:01 Dose: Not Given Documented by: [id number] Vecuronium [place] (Vecuronium [place] 10 Mg Vial) Confirm Administered Dose 10 mg IV .STK-MED ONE Stop: 04/01/21 19:49 Last Admin: 04/01/21 19:51 Dose: 10 mg Documented by: [id number] Cosigned by: [id number] Vecuronium [place] (Vecuronium [place] 10 Mg Vial) 8 mg IV PRN ONE Stop: 04/01/21 22:18 Last Admin: 04/01/21 22:31 Dose: 8 mg Documented by: [id number] Cosigned by: [id number] Vecuronium [place] (Vecuronium [place] 10 Mg Vial) 10 mg IV NOW STA Stop: 04/02/21 09:15 Last Admin: 04/02/21 09:59 Dose: 10 mg Documented by: [id number] Cosigned by: [id number] Vecuronium [place] (Vecuronium [place] 10 Mg Vial) Confirm Administered Dose 10 mg IV .STK-MED ONE Stop: 04/02/21 09:17 Last Admin: 04/02/21 09:29 Dose: Not Given Documented by: [id number] Vecuronium [place] (Vecuronium [place] 10 Mg Vial) 10 mg IV NOW STA Stop: 04/02/21 12:40 Last Admin: 04/02/21 13:25 Dose: Not Given Documented by: [id number] Vecuronium [place] (Vecuronium [place] 10 Mg Vial) Confirm Administered Dose 10 mg IV .STK-MED ONE Stop: 04/02/21 12:45 Last Admin: 04/02/21 12:48 Dose: 10 mg Documented by: [id number] Cosigned by: [id number] Vecuronium [place] (Vecuronium [place] 10 Mg Vial) 10 mg IV NOW STA Stop: 04/04/21 05:11 Last Admin: 04/04/21 05:46 Dose: Not Given Documented by: [id number] Vecuronium [place] (Vecuronium [place] 10 Mg Vial) Confirm Administered Dose 10 mg IV .STK-MED ONE Stop: 04/04/21 05:13 Last Admin: 04/04/21 05:46 Dose: 10 mg Documented by: [id number] Cosigned by: [id number] Vecuronium [place] (Vecuronium [place] 10 Mg Vial) Confirm Administered Dose 10 mg IV .STK-MED ONE Stop: 04/04/21 20:01 Last Admin: 04/04/21 20:06 Dose: 10 mg Documented by: [id number] Cosigned by: [id number] Vecuronium [place] (Vecuronium [place] 10 Mg Vial) 10 mg IV NOW STA Stop: 04/05/21 11:37 Last Admin: 04/05/21 11:45 Dose: 10 mg Documented by: [id number] Cosigned by: [id number] Vecuronium [place] (Vecuronium [place] 10 Mg Vial) 10 mg IV NOW STA Stop: 04/06/21 01:21 Last Admin: 04/06/21 01:38 Dose: 10 mg Documented by: [id number] Cosigned by: [id number] Vecuronium [place] (Vecuronium [place] 10 Mg Vial) Confirm Administered Dose 10 mg IV .STK-MED ONE Stop: 04/06/21 01:21 Last Admin: 04/06/21 01:25 Dose: 10 mg Documented by: [id number] Cosigned by: [id number] Vecuronium [place] (Vecuronium [place] 10 Mg Vial) Confirm Administered Dose 10 mg IV .STK-MED ONE Stop: 04/06/21 21:01 Last Admin: 04/06/21 23:47 Dose: 10 mg Documented by: [id number] Cosigned by: [id number] Vecuronium [place] (Vecuronium [place] 10 Mg Vial) 10 mg IV ONE ONE Stop: 04/06/21 21:46 Last Admin: 04/07/21 01:00 Dose: Not Given Documented by: [id number] Vecuronium [place] (Vecuronium [place] 10 Mg Vial) 10 mg IV NOW ONE Stop: 04/09/21 09:01 Last Admin: 04/09/21 10:31 Dose: Not Given Documented by: [id number] Vecuronium [place] (Vecuronium [place] 10 Mg Vial) 10 mg IV TODAY@1500 MARCIA Stop: 04/09/21 20:00 Last Admin: 04/09/21 17:09 Dose: 10 mg Documented by: [id number] Cosigned by: [id number] Description This is a 21 electrode EEG with a single channel dedicated to limited EKG. The electrodes were placed in accordance with the International 10-20 system. History: AMS, COVID/currently intubated Rx: fentanyl, gabapentin, versed prn Start/Stop: 12:56pm/1:16pm Attending reading: Leanna Ennis EEG Description: EEG background: Background was normal voltage with predominantly 2-7 Hz delta/theta slowing observed. No well formed posterior dominant rhythm was obse rved. The EEG is continuous. There is variability and reactivity present. Significant muscle artifact is present. Activation and reactivity: Photic stimulation performed without any abnormalities noted. No photic driving observed. Hyperventilation was not performed. Sleep: No sleep architecture noted Epileptiform discharges: No clear epileptiform discharges were observed, though study is technically difficult given significant muscle artifact. Rhythmic and periodic patterns: None Seizures: None Impression: This was an abnormal EEG given moderate to severe generalized slowing suggestive of a toxic-metabolic encephalopathy. No clear seizures or epileptiform discharges were seen. [facility] EEG Procedure Codes Indication for Procedure (1) Pneumonia due to COVID-19 virus: (2) AMS (altered mental status): Neurology Neurology: 35042 EEG include record awake & drowsy
--- NOTE | 2021-04-10 10:10 | XRay Report ---
KUB HISTORY: Status post placement of a feeding tube NG Tube Placement COMPARISON: Chest radiograph 04/09/2021 FINDINGS: Distal tip of the feeding tube projects over the right lung base. Cardiac megaly with exten sive bilateral pulmonary opacities. Cholecystectomy. No renal calculi. No ureteral calculi. No pneum operitoneum or pneumatosis. No fracture. IMPRESSION: Distal tip of feeding tube projects over the right lung base. Repositioning with follow-up imaging is needed. ACT 112: Negative or not required by law. The above report was generated using voice recognition software. It may contain grammatical, syntax o r spelling errors. Electronically signed by: Arpit Dutton M.D. 04/10/2021 10:09 AM
[2021-04-10] MEDS: levoFLOXacin/D5W 750 MG/150 ML BAG IV SCH (10:52)
[2021-04-10] MEDS: VANCOMYCIN HCL 1,500 MG in SODIUM CHLORIDE 0.9% 500 ML IV SCH ×2 (10:54→21:53)
--- NOTE | 2021-04-10 11:42 | XRay Report ---
KUB HISTORY: Status post placement of a feeding tube coresafe placement COMPARISON: KUB of same day at 9:40 AM FINDINGS: Feeding tube distal tip projects over the mid stomach. Cholecystectomy. Nonobstructive sharan l gas pattern. Bibasilar pulmonary opacities. No renal calculi. No ureteral calculi. No pneumoperito neum or pneumatosis. No fracture. IMPRESSION: Distal tip of feeding tube projects over the mid stomach. ACT 112: Negative or not required by law. The above report was generated using voice recognition software. It may contain grammatical, syntax o r spelling errors. Electronically signed by: Arpit Dutton M.D. 04/10/2021 11:41 AM
[2021-04-10] MEDS: fentaNYL citrate 2,500 MCG/250 ML BAG IV SCH (13:20)
[2021-04-10] MEDS ORDERED: ADENOSINE IV SOLN 3 MG/ML 2 ML VIAL IV ONE (14:33)
[2021-04-10] MEDS ORDERED: SODIUM CHLORIDE 0.9% 10ML FLUSH IV ONE (14:33)
--- NOTE | 2021-04-10 16:54 | Hospitalist Progress Note ---
Date of Service April 10, 2021 Assessment & Plan (1) Acute respiratory failure with hypoxia: Plan: due to COVID 19 pneumonia, bilateral infiltrates on CXR Was requiring prone positioning and BiPAP while awake, but then weaned down to wall high flow nasal cannula at 11-15 L on 03/23 However, on 03/24 worsened again was placed back on Vapotherm high flow nasal cannula On 03/25, requiring higher amounts of oxygen at 40 L and up to 80 % FiO2 to maintain pulse ox 90-91% On 03/26 switched to Ventilator HFNC at 60L, 100% FiO2 to keep POx>88%---> continued to decompensate on the morning of 03/27 and was intubated and proned He was not a candidate for ECMO Previously had pneumomediastinum which is now resolved Status post tocilizumab on 03/21 CRP trended downward Completed a course of high-dose dexamethasone initially with 10 mg daily and then on 03/28, increased to 20 mg daily x5 days, then 10 mg daily x5 days IV Lasix daily to keep in a negative fluid balance, was given along with albumin today Ventilator management as per cashier assistant-remains on AC, PEEP of 8, FiO2 50% Now status post tracheostomy on 04/05 Continue to wean off ventilator as able to Chest x-ray still with significant bilateral infiltrates, off Precedex and all sedation Fentanyl only as needed Zyprexa 10 mg daily for ICU delirium EEG with moderate to severe encephalopathy, no seizure activity Having trouble waking up and moving limbs-MRIs of C/T/L-spine all negative Continues to have fevers as below which is likely contributing to his encephalopathy (2) Fever: Plan: With sepsis Fevers started on 04/02, then resolved UA is clean on 04/02 CXR with persistent infiltrates blood cultures - no growth from 04/02, but now blood cultures positive on 04/09 for gram-positive cocci in clusters in 1/2 sets Sputum culture from 04/02 growing group G beta Streptococcus which has been adequately treated with no improvement in fever procalcitonin elevated at 1.7 Continued with recurrent fevers since 04/05 acute sinusitis/otitis media seen on MRI brain, bacteremia ruled out, drug fever is a possibility Then found to have right lung abscess on CT chest on [id number] cultures Lines have been removed and replaced with peripheral IVs Fevers finally starting to resolve on 04/10 -blood cultures repeated on 04/08-with 1/2 coagulase-negative staph-likely contaminant blood cultures 04/09-no growth to date Dopplers of lower extremities negative for DVT CT chest/abdomen/pelvis significant for lung abscess, necrotizing pancreatitis but lipase normal MRIs of cervical/thoracic/lumbar spine without epidural abscess or discitis MRSA swab remains negative WBC count jumped up to 23 and now down to 15 Previously on Zosyn but was discontinued on 04/06 -Started cefepime and vancomycin on 04/06 for broad-spectrum coverage x1 dose -changed to Levaquin and Flagyl on 04/07 -Restarted vancomycin again on 04/09 for bacteremia -Added caspofungin on given lung abscess and Fungitell sent -Follow CBC (3) SVT (supraventricular tachycardia): Plan: Had SVT to the 200s on the evening of 04/07 with associated hypotension requiring esmolol, amiodarone, adenosine x3, synchronized cardioversion x5 Also had further atrial fibrillation on 04/07 and again on the night of 04/09 Now back in normal sinus rhythm Metoprolol discontinued per NG tube and transition to metoprolol 5 mg IV every 4 hours scheduled Continue amiodarone drip -Diltiazem drip as needed Replace electrolytes as needed Now on therapeutic Lovenox due to paroxysmal atrial fibrillation (4) Pneumonia due to COVID-19 virus: Plan: Symptom onset: approximately March 09, says he just got dyspnea and cough a few days prior to admission-became really short of breath on 03/20 so he came to the ED bilateral infiltrates on CXR, CRP 18 and then decreased after receiving Tocilizumab and dexamethasone Completed course of dexamethasone Completed 5-day course of Rocephin/Zithromax Was too far along in course of illness to give Remdesivir, no benefit Received Tocilizumab on 03/21 CTA chest: no pulmonary embolism, just shows diffuse infiltrates initially CXR still with bilateral infiltrates Sputum culture with group C beta strep as above-on antibiotics still requiring mechanical ventilation, now status post tracheostomy (5) Transaminitis: Plan: Persists, likely secondary to COVID-19 infection, but could be medication side effect Improving (6) Bradycardia: Plan: with sinus terry initially while on BIPAP Since that time, was in sinus tachycardia But also had atrial fibrillation briefly on the night of 04/05 and SVT on the evening of 04/07 On afternoon of 04/07 had a couple 4-second pauses after starting p.o. metoprolol which was then held Restarted metoprolol and no further pauses (7) Hypotension: Plan: Has intermittently required vasopressors especially with SVT and rapid atrial fibrillation Now resolved, off vasopressors and hypertensive Received IV Lasix and albumin intermittently Now hypertensive Home amlodipine on hold Giving IV Lopressor as above (8) Pneumomediastinum: Plan: Now resolved (9) ROSARIO (acute kidney injury): Plan: -Early in the course, now resolved Making urine, Rogers catheter in place Lasix PRN to keep negative fluid balance (10) Elevated troponin: Plan: Troponin elevated at 0.13/0.1/0.09 Could be myocardial demand ischemia given ongoing SIRS/sepsis, although ECG with ST depression and T wave inversions in lateral leads which is not changed from 3 days prior Doubt acute coronary syndrome (11) Hypokalemia: Plan: Resolved with potassium replacement (12) BPH loc w urin obs/LUTS: Plan: Rogers catheter in place (13) Lung abscess: Plan: As above Status post aspiration Follow cultures Continue levofloxacin, metronidazole, vancomycin, and caspofungin (14) Pancreatitis: Plan: Visualized on CT of the abdomen with suspected necrotizing pancreatitis Lipase normal Difficult to tell patient is having pain Trickle feeds Plan: DVT prophylaxis: therapeutic Lovenox, SCDs Disposition: Continued stay in ICU, very guarded prognosis CODE STATUS: conditional code with no compressions Admission and Anticipated Discharge Date Admission Date: March 20, 2021 Subjective Overnight patient had additional events of atrial fibrillation with rapid ventricular response. Was reported patient had a episode of hypoxia during MRI which responded to manual bagging. Is still intermittently hypertensive and tachypneic, but seems to be more restless and moving around today. EEG was performed which was showing moderate to severe encephalopathy. Review of Systems Review of Systems: Unobtainable due to cognitive status Physical Exam Constitutional: WD/WN, vitals as above + ill appearing and + mechanically ventilated Neck: + tracheostomy present Results & Data Results & Data ([facility]) Vital Signs (Past 12 Hours) Vital Signs Temp Pulse Resp BP Pulse Ox 04/10/21 16:15 37.2 C 61 154/72 H 93 09/11/21 15:56 99 H 191/94 H 04/10/21 15:40 74 33 H 92 04/10/21 15:15 37.1 C 86 171/102 H 89 L 04/10/21 14:15 36.9 C 84 174/102 H 90 04/10/21 13:15 36.6 C 79 189/87 H 91 04/10/21 12:31 84 184/81 H 04/10/21 12:15 36.6 C 87 184/81 H 90 04/10/21 11:34 84 26 H 92 04/10/21 11:15 36.8 C 91 H 193/100 H 86 L 04/10/21 10:15 37.1 C 89 185/85 H 89 L 04/10/21 09:15 37.2 C 73 165/87 H 95 04/10/21 08:53 66 146/70 H 04/10/21 08:15 37.4 C 67 144/68 H 95 04/10/21 07:43 69 28 H 96 04/10/21 07:15 37.6 C H 68 144/70 H 95 04/10/21 05:26 69 26 H 95 Laboratory Results 04/10/21 04/10/21 04/10/21 Range/Units 16:05 11:17 09:15 WBC (4.8-10.8) K/uL RBC (4.7-6.1) M/uL Hgb (14.0-18.0) g/dL Hct (42-52) % MCV (80-100) fL MCH (25-34) pg MCHC (32-36) g/dL RDW Std Deviation (36.4-46.3) fL RDW Coeff of Sujit (11.5-14.5) % Plt Count (130-400) K/uL MPV (7.4-10.4) fL Immature Gran % (Auto) % Neut % (Auto) % Lymph % (Auto) % [place] % (Auto) % Eos % (Auto) % Baso % (Auto) % Neut # (Auto) (1.4-6.5) K/uL Lymph # (Auto) (1.2-3.4) K/uL [place] # (Auto) (0.11-0.59) K/uL Eos # (Auto) (0-0.5) K/uL Baso # (Auto) (0-0.2) K/uL Immature Gran # (Auto) (0.00-0.02) K/uL PT (9.0-12.0) Seconds INR (0.9-1.1) Sample Site POC pH (7.35-7.45) POC pCO2 (35-46) mmHg POC pO2 (80-95) mmHg POC HCO3 (19-24) iraida/L POC Total CO2 (24-31) mmol/L POC Base Excess (-9-1.8) iraida/L POC ABG O2 Sat (90-95) % Sher Test O2 Delivery Device POC O2 Rate POC FiO2 % Tidal Volume PEEP Sodium (136-145) mmol/L Potassium (3.5-5.1) mmol/L Chloride (98-107) mmol/L Carbon Dioxide (21-32) mmol/L Anion Gap (3-11) BUN (7-18) mg/dl Creatinine (0.6-1.4) mg/dl Est Cr Clr Drug Dosing ml/min Est GFR ( Amer) ml/min Est GFR (Non-Af Amer) ml/min BUN/Creatinine Ratio (10-20) Glucose (70-99) mg/dl POC Glucose 148 H 161 H 162 H (70-99) mg/dl Calcium (8.5-10.1) mg/dl Ionized Calcium (1.12-1.32) mmol/L Phosphorus (2.5-4.9) mg/dl Magnesium (1.8-2.4) mg/dl Total Bilirubin (0.2-1) mg/dl Direct Bilirubin (0-0.2) mg/dl AST (15-37) U/L ALT (12-78) U/L Alkaline Phosphatase (45-117) U/L Lactate Dehydrogenase (87-241) U/L Total Protein (6.4-8.2) gm/dl Albumin (3.4-5.0) gm/dl Triglycerides (0-150) mg/dl Lipase (73-393) U/L Fluid Neutrophils % % Fluid Lymphocytes % % Fluid Eosinophils % % Fluid Basophils % % Fluid Meso/Macro/Sweet [place] % % Fluid Comment Pleural Fluid Source Pleural Color Pleural Appearance Pleural WBC /uL Pleural RBC /uL Pleural Total Protein g/dl Pleural LDH U/L Pleural Glucose mg/dl Pleural Amylase U/L Beta-(1,3)-D-Glucan B-(1,3)-D-Glucan Intrp 04/10/21 04/10/21 04/10/21 Range/Units 05:56 04:50 04:44 WBC (4.8-10.8) K/uL RBC (4.7-6.1) M/uL Hgb (14.0-18.0) g/dL Hct (42-52) % MCV (80-100) fL MCH (25-34) pg MCHC (32-36) g/dL RDW Std Deviation (36.4-46.3) fL RDW Coeff of Sujit (11.5-14.5) % Plt Count (130-400) K/uL MPV (7.4-10.4) fL Immature Gran % (Auto) % Neut % (Auto) % Lymph % (Auto) % [place] % (Auto) % Eos % (Auto) % Baso % (Auto) % Neut # (Auto) (1.4-6.5) K/uL Lymph # (Auto) (1.2-3.4) K/uL [place] # (Auto) (0.11-0.59) K/uL Eos # (Auto) (0-0.5) K/uL Baso # (Auto) (0-0.2) K/uL Immature Gran # (Auto) (0.00-0.02) K/uL PT (9.0-12.0) Seconds INR (0.9-1.1) Sample Site R Radial POC pH 7.35 (7.35-7.45) POC pCO2 51 H (35-46) mmHg POC pO2 46 L (80-95) mmHg POC HCO3 28 H (19-24) iraida/L POC Total CO2 29 (24-31) mmol/L POC Base Excess 2.0 H (-9-1.8) iraida/L POC ABG O2 Sat 78.0 L (90-95) % Sher Test Pass O2 Delivery Device Ventilator POC O2 Rate 26 POC FiO2 50 % Tidal Volume 520 PEEP 8 Sodium 153 H (136-145) mmol/L Potassium 3.5 (3.5-5.1) mmol/L Chloride 121 H (98-107) mmol/L Carbon Dioxide 28 (21-32) mmol/L Anion Gap 4.0 (3-11) BUN 61 H (7-18) mg/dl Creatinine 1.26 (0.6-1.4) mg/dl Est Cr Clr Drug Dosing 78.8 ml/min Est GFR ( Amer) 71.4 ml/min Est GFR (Non-Af Amer) 61.6 ml/min BUN/Creatinine Ratio 48.7 H (10-20) Glucose 164 H (70-99) mg/dl POC Glucose 154 H (70-99) mg/dl Calcium 8.8 (8.5-10.1) mg/dl Ionized Calcium (1.12-1.32) mmol/L Phosphorus (2.5-4.9) mg/dl Magnesium (1.8-2.4) mg/dl Total Bilirubin (0.2-1) mg/dl Direct Bilirubin (0-0.2) mg/dl AST (15-37) U/L ALT (12-78) U/L Alkaline Phosphatase (45-117) U/L Lactate Dehydrogenase (87-241) U/L Total Protein (6.4-8.2) gm/dl Albumin (3.4-5.0) gm/dl Triglycerides (0-150) mg/dl Lipase (73-393) U/L Fluid Neutrophils % % Fluid Lymphocytes % % Fluid Eosinophils % % Fluid Basophils % % Fluid Meso/Macro/Sweet [place] % % Fluid Comment Pleural Fluid Source Pleural Color Pleural Appearance Pleural WBC /uL Pleural RBC /uL Pleural Total Protein g/dl Pleural LDH U/L Pleural Glucose mg/dl Pleural Amylase U/L Beta-(1,3)-D-Glucan B-(1,3)-D-Glucan Intrp 04/10/21 04/10/21 04/10/21 Range/Units 02:03 02:03 02:03 WBC (4.8-10.8) K/uL RBC (4.7-6.1) M/uL Hgb (14.0-18.0) g/dL Hct (42-52) % MCV (80-100) fL MCH (25-34) pg MCHC (32-36) g/dL RDW Std Deviation (36.4-46.3) fL RDW Coeff of Sujit (11.5-14.5) % Plt Count (130-400) K/uL MPV (7.4-10.4) fL Immature Gran % (Auto) % Neut % (Auto) % Lymph % (Auto) % [place] % (Auto) % Eos % (Auto) % Baso % (Auto) % Neut # (Auto) (1.4-6.5) K/uL Lymph # (Auto) (1.2-3.4) K/uL [place] # (Auto) (0.11-0.59) K/uL Eos # (Auto) (0-0.5) K/uL Baso # (Auto) (0-0.2) K/uL Immature Gran # (Auto) (0.00-0.02) K/uL PT 10.9 (9.0-12.0) Seconds INR 1.1 (0.9-1.1) Sample Site POC pH (7.35-7.45) POC pCO2 (35-46) mmHg POC pO2 (80-95) mmHg POC HCO3 (19-24) iraida/L POC Total CO2 (24-31) mmol/L POC Base Excess (-9-1.8) iraida/L POC ABG O2 Sat (90-95) % Sher Test O2 Delivery Device POC O2 Rate POC FiO2 % Tidal Volume PEEP Sodium (136-145) mmol/L Potassium (3.5-5.1) mmol/L Chloride (98-107) mmol/L Carbon Dioxide (21-32) mmol/L Anion Gap (3-11) BUN (7-18) mg/dl Creatinine (0.6-1.4) mg/dl Est Cr Clr Drug Dosing ml/min Est GFR ( Amer) ml/min Est GFR (Non-Af Amer) ml/min BUN/Creatinine Ratio (10-20) Glucose (70-99) mg/dl POC Glucose (70-99) mg/dl Calcium (8.5-10.1) mg/dl Ionized Calcium 1.21 (1.12-1.32) mmol/L Phosphorus 2.5 (2.5-4.9) mg/dl Magnesium 2.7 H (1.8-2.4) mg/dl Total Bilirubin 0.4 (0.2-1) mg/dl Direct Bilirubin 0.2 (0-0.2) mg/dl AST 21 (15-37) U/L ALT 40 (12-78) U/L Alkaline Phosphatase 109 (45-117) U/L Lactate Dehydrogenase (87-241) U/L Total Protein 6.1 L (6.4-8.2) gm/dl Albumin 1.9 L (3.4-5.0) gm/dl Triglycerides 181 H (0-150) mg/dl Lipase 112 (73-393) U/L Fluid Neutrophils % % Fluid Lymphocytes % % Fluid Eosinophils % % Fluid Basophils % % Fluid Meso/Macro/Sweet Grass % % Fluid Comment Pleural Fluid Source Pleural Color Pleural Appearance Pleural WBC /uL Pleural RBC /uL Pleural Total Protein g/dl Pleural LDH U/L Pleural Glucose mg/dl Pleural Amylase U/L Beta-(1,3)-D-Glucan B-(1,3)-D-Glucan Intrp 04/10/21 04/10/21 04/09/21 Range/Units 02:03 00:07 22:45 WBC 15.35 H (4.8-10.8) K/uL RBC 3.68 L (4.7-6.1) M/uL Hgb 11.1 L (14.0-18.0) g/dL Hct 35.5 L (42-52) % MCV 96.5 (80-100) fL MCH 30.2 (25-34) pg MCHC 31.3 L (32-36) g/dL RDW Std Deviation 55.8 H (36.4-46.3) fL RDW Coeff of Sujit 15.8 H (11.5-14.5) % Plt Count 237 (130-400) K/uL MPV 10.1 (7.4-10.4) fL Immature Gran % (Auto) 0.5 % Neut % (Auto) 87.7 % Lymph % (Auto) 4.6 % [place] % (Auto) 7.0 % Eos % (Auto) 0.1 % Baso % (Auto) 0.1 % Neut # (Auto) 13.48 H (1.4-6.5) K/uL Lymph # (Auto) 0.71 L (1.2-3.4) K/uL [place] # (Auto) 1.07 H (0.11-0.59) K/uL Eos # (Auto) 0.01 (0-0.5) K/uL Baso # (Auto) 0.01 (0-0.2) K/uL Immature Gran # (Auto) 0.07 H (0.00-0.02) K/uL PT (9.0-12.0) Seconds INR (0.9-1.1) Sample Site POC pH (7.35-7.45) POC pCO2 (35-46) mmHg POC pO2 (80-95) mmHg POC HCO3 (19-24) iraida/L POC Total CO2 (24-31) mmol/L POC Base Excess (-9-1.8) iraida/L POC ABG O2 Sat (90-95) % Sher Test O2 Delivery Device POC O2 Rate POC FiO2 % Tidal Volume PEEP Sodium (136-145) mmol/L Potassium (3.5-5.1) mmol/L Chloride (98-107) mmol/L Carbon Dioxide (21-32) mmol/L Anion Gap (3-11) BUN (7-18) mg/dl Creatinine (0.6-1.4) mg/dl Est Cr Clr Drug Dosing ml/min Est GFR ( Amer) ml/min Est GFR (Non-Af Amer) ml/min BUN/Creatinine Ratio (10-20) Glucose (70-99) mg/dl POC Glucose 140 H (70-99) mg/dl Calcium (8.5-10.1) mg/dl Ionized Calcium (1.12-1.32) mmol/L Phosphorus (2.5-4.9) mg/dl Magnesium (1.8-2.4) mg/dl Total Bilirubin (0.2-1) mg/dl Direct Bilirubin (0-0.2) mg/dl AST (15-37) U/L ALT (12-78) U/L Alkaline Phosphatase (45-117) U/L Lactate Dehydrogenase (87-241) U/L Total Protein (6.4-8.2) gm/dl Albumin (3.4-5.0) gm/dl Triglycerides (0-150) mg/dl Lipase (73-393) U/L Fluid Neutrophils % 89 % Fluid Lymphocytes % 3 % Fluid Eosinophils % 0 % Fluid Basophils % 0 % Fluid Meso/Macro/Sweet [place] % 8 % Fluid Comment Pleural Fluid Source RIGHT LUNG Pleural Color RED Pleural Appearance BLOODY Pleural WBC 6937 /uL Pleural RBC 59329 /uL Pleural Total Protein 3.2 g/dl Pleural LDH 929 U/L Pleural Glucose 148 mg/dl Pleural Amylase 29 U/L Beta-(1,3)-D-Glucan B-(1,3)-D-Glucan Intrp 04/09/21 04/09/21 04/09/21 Range/Units 22:39 22:39 22:38 WBC (4.8-10.8) K/uL RBC (4.7-6.1) M/uL Hgb (14.0-18.0) g/dL Hct (42-52) % MCV (80-100) fL MCH (25-34) pg MCHC (32-36) g/dL RDW Std Deviation (36.4-46.3) fL RDW Coeff of Sujit (11.5-14.5) % Plt Count (130-400) K/uL MPV (7.4-10.4) fL Immature Gran % (Auto) % Neut % (Auto) % Lymph % (Auto) % [place] % (Auto) % Eos % (Auto) % Baso % (Auto) % Neut # (Auto) (1.4-6.5) K/uL Lymph # (Auto) (1.2-3.4) K/uL [place] # (Auto) (0.11-0.59) K/uL Eos # (Auto) (0-0.5) K/uL Baso # (Auto) (0-0.2) K/uL Immature Gran # (Auto) (0.00-0.02) K/uL PT (9.0-12.0) Seconds INR (0.9-1.1) Sample Site POC pH (7.35-7.45) POC pCO2 (35-46) mmHg POC pO2 (80-95) mmHg POC HCO3 (19-24) iraida/L POC Total CO2 (24-31) mmol/L POC Base Excess (-9-1.8) iraida/L POC ABG O2 Sat (90-95) % Sher Test O2 Delivery Device POC O2 Rate POC FiO2 % Tidal Volume PEEP Sodium (136-145) mmol/L Potassium (3.5-5.1) mmol/L Chloride (98-107) mmol/L Carbon Dioxide (21-32) mmol/L Anion Gap (3-11) BUN (7-18) mg/dl Creatinine (0.6-1.4) mg/dl Est Cr Clr Drug Dosing ml/min Est GFR ( Amer) ml/min Est GFR (Non-Af Amer) ml/min BUN/Creatinine Ratio (10-20) Glucose (70-99) mg/dl POC Glucose (70-99) mg/dl Calcium (8.5-10.1) mg/dl Ionized Calcium (1.12-1.32) mmol/L Phosphorus (2.5-4.9) mg/dl Magnesium (1.8-2.4) mg/dl Total Bilirubin 0.4 (0.2-1) mg/dl Direct Bilirubin (0-0.2) mg/dl AST (15-37) U/L ALT (12-78) U/L Alkaline Phosphatase (45-117) U/L Lactate Dehydrogenase 346 H (87-241) U/L Total Protein 6.0 L (6.4-8.2) gm/dl Albumin 1.9 L (3.4-5.0) gm/dl Triglycerides (0-150) mg/dl Lipase (73-393) U/L Fluid Neutrophils % % Fluid Lymphocytes % % Fluid Eosinophils % % Fluid Basophils % % Fluid Meso/Macro/Sweet [place] % % Fluid Comment Pleural Fluid Source Pleural Color Pleural Appearance Pleural WBC /uL Pleural RBC /uL Pleural Total Protein g/dl Pleural LDH U/L Pleural Glucose mg/dl Pleural Amylase U/L Beta-(1,3)-D-Glucan Pending B-(1,3)-D-Glucan Intrp Pending 04/09/21 04/09/21 Range/Units 21:53 05:14 WBC (4.8-10.8) K/uL RBC (4.7-6.1) M/uL Hgb (14.0-18.0) g/dL Hct (42-52) % MCV (80-100) fL MCH (25-34) pg MCHC (32-36) g/dL RDW Std Deviation (36.4-46.3) fL RDW Coeff of Sujit (11.5-14.5) % Plt Count (130-400) K/uL MPV (7.4-10.4) fL Immature Gran % (Auto) % Neut % (Auto) % Lymph % (Auto) % [place] % (Auto) % Eos % (Auto) % Baso % (Auto) % Neut # (Auto) (1.4-6.5) K/uL Lymph # (Auto) (1.2-3.4) K/uL [place] # (Auto) (0.11-0.59) K/uL Eos # (Auto) (0-0.5) K/uL Baso # (Auto) (0-0.2) K/uL Immature Gran # (Auto) (0.00-0.02) K/uL PT (9.0-12.0) Seconds INR (0.9-1.1) Sample Site POC pH (7.35-7.45) POC pCO2 (35-46) mmHg POC pO2 (80-95) mmHg POC HCO3 (19-24) iraida/L POC Total CO2 (24-31) mmol/L POC Base Excess (-9-1.8) iraida/L POC ABG O2 Sat (90-95) % Sher Test O2 Delivery Device POC O2 Rate POC FiO2 % Tidal Volume PEEP Sodium (136-145) mmol/L Potassium (3.5-5.1) mmol/L Chloride (98-107) mmol/L Carbon Dioxide (21-32) mmol/L Anion Gap (3-11) BUN (7-18) mg/dl Creatinine (0.6-1.4) mg/dl Est Cr Clr Drug Dosing ml/min Est GFR ( Amer) ml/min Est GFR (Non-Af Amer) ml/min BUN/Creatinine Ratio (10-20) Glucose (70-99) mg/dl POC Glucose 181 H (70-99) mg/dl Calcium (8.5-10.1) mg/dl Ionized Calcium (1.12-1.32) mmol/L Phosphorus (2.5-4.9) mg/dl Magnesium (1.8-2.4) mg/dl Total Bilirubin (0.2-1) mg/dl Direct Bilirubin (0-0.2) mg/dl AST (15-37) U/L ALT (12-78) U/L Alkaline Phosphatase (45-117) U/L Lactate Dehydrogenase (87-241) U/L Total Protein (6.4-8.2) gm/dl Albumin (3.4-5.0) gm/dl Triglycerides (0-150) mg/dl Lipase 111 (73-393) U/L Fluid Neutrophils % % Fluid Lymphocytes % % Fluid Eosinophils % % Fluid Basophils % % Fluid Meso/Macro/[place] % % Fluid Comment Pleural Fluid Source Pleural Color Pleural Appearance Pleural WBC /uL Pleural RBC /uL Pleural Total Protein g/dl Pleural LDH U/L Pleural Glucose mg/dl Pleural Amylase U/L Beta-(1,3)-D-Glucan B-(1,3)-D-Glucan Intrp PG Care Time/CCT Total # of Minutes Spent Total Time Spent with Patient: Total time spent is greater than 50% in coordination of care (as documented) at patient's floor/unit and/or counseling patient: Coding Level of Care Code 15972 Subseq Hosp Care Lvl 1 Diagnoses Acute respiratory failure with hypoxia J96.01 Fever R50.9 SVT (supraventricular tachycardia) I47.1 Pneumonia due to COVID-19 virus U07.1; J12.82 Transaminitis R74.01 Bradycardia R00.1 Hypotension I95.9 Pneumomediastinum J98.2 ROSARIO (acute kidney injury) N17.9 Elevated troponin R77.8 Hypokalemia E87.6 BPH loc w urin obs/LUTS N40.1 Lung abscess J85.2 Pancreatitis K85.90
[2021-04-10] MEDS: CASPOFUNGIN 50 MG in SODIUM CHLORIDE 0.9% 250 ML IV SCH (18:06)
[2021-04-10] MEDS: hydrALAZINE HCL 20 MG/ML VIAL IV PRN (20:39)
[2021-04-10] MEDS ORDERED: VANCOMYCIN TROUGH ONE (21:30)
[2021-04-10] MEDS ORDERED: MIDAZOLAM HCL 1 MG/ML 2ML VIAL ONE (22:19)
[2021-04-11] MEDS: METOPROLOL TARTRATE 1 MG/ML VIAL IV SCH ×2 (00:06→05:31)
[2021-04-11] MEDS: INSULIN ASPART 100 UNITS/ML 3 ML PEN SC SCH ×6 (00:16→21:00)
[2021-04-11] MEDS: ARTIFICIAL TEARS OP OINT 3.5 GM TUBE OP SCH ×6 (00:18→20:34)
[2021-04-11] MEDS: AMIODARONE / D5W 360 MG/200 ML BAG IV SCH (01:43)
[2021-04-11] MEDS: metroNIDAZOLE 500 MG/100 ML BAG IV SCH ×3 (01:52→18:02)
[2021-04-11 05:20] LABS: iSTAT Allen Test Pass; iSTAT Art Bld Gas pCO2 Correct 42 mmHg (35-46); iSTAT Art Bld Gas pH Corrected 7.388 (7.35-7.45); iSTAT Arterial Blood Gas HCO3 25 meg/L (19-24); iSTAT Arterial Blood Gas pCO2 41 mmHg (35-46); iSTAT Arterial Blood Gas pH 7.39 (7.35-7.45); iSTAT Arterial Blood Gas pO2 60 mmHg (80-95); iSTAT Arterial Blood Gas pO2 C 61; iSTAT Carbon Dioxide 26 mmol/L (24-31); iSTAT FiO2 50 %; iSTAT Hematocrit 30 % (42-52); iSTAT Hemoglobin 10.2 g/dl (14.0-18.0); iSTAT Potassium 3.4 mmol/L (3.3-5.0); iSTAT Site L Radial; iSTAT Sodium 154 mmol/L (135-144)
[2021-04-11 05:36] LABS: Basophils # (auto) 0.01 K/uL (0-0.2); Basophils % (auto) 0.1 %; Eosinophils # (auto) 0.03 K/uL (0-0.5); Eosinophils % (auto) 0.2 %; Hematocrit (blood only) 33.6 % (42-52); Hemoglobin 10.6 g/dL (14.0-18.0); Immature Granulocytes # (auto) 0.09 K/uL (0.00-0.02); Immature Granulocytes % (auto) 0.6 %; Lymphocytes # (auto) 0.52 K/uL (1.2-3.4); Lymphocytes % (auto) 3.6 %; Mean Corpuscular Hemoglobin 29.8 pg (25-34); Mean Corpuscular Hgb Conc 31.5 g/dL (32-36); Mean Corpuscular Volume 94.4 fL (80-100); Mean Platelet Volume 10.6 fL (7.4-10.4); Monocytes # (auto) 1.01 K/uL (0.11-0.59); Neutrophils # (auto) 12.74 K/uL (1.4-6.5); Neutrophils % (auto) 88.5 %; Platelet Count 244 K/uL (130-400); RDW Standard Deviation 55.5 fL (36.4-46.3); Red Blood Count 3.56 M/uL (4.7-6.1)
[2021-04-11 06:03] LABS: BUN Creatinine Ratio 48.3 (10-20); Calcium 8.7 mg/dl (8.5-10.1); Creatinine Clr Calc Pharmacy 90.7 ml/min; Est GFR (African American) 84.1 ml/min; Est GFR (Non-African American) 72.6 ml/min; Magnesium 2.7 mg/dl (1.8-2.4); Potassium 3.5 mmol/L (3.5-5.1)
[2021-04-11 06:04] LABS: Phosphorus 3.1 mg/dl (2.5-4.9)
[2021-04-11] MEDS ORDERED: POTASSIUM CHLORIDE 20 MEQ/15 ML UDC PO STA (06:22)
--- NOTE | 2021-04-11 07:31 | Critical Care Progress Note ---
Date of Service April 11, 2021 Assessment & Plan (1) Acute respiratory failure with hypoxia: Plan: Reason Critically Ill: 61-year-old male with past medical history of hypertension admitted to the hospital for COVID-19 pneumonia and acute hypoxic respiratory failure, intubated 03/27/2021 PLAN: NEURO: Hypoactive delirium -Zyprexa: Increased from 5 to 10 mg on 04/10 -CT Head 04/02/21: Negative for any acute abnormality. -MRI 04/06/21: Acute paranasal sinusitis with large bilateral mastoid effusions. Otherwise largely unremarkable. - EEG report reviewed: 04/10/2021 RESPIRATORY: VDRF with acute hypoxic respiratory failure, secondary to multilobar COVID-19 pneumonia - COVID-19 PCR positive 03/16/2021, remains positive as of 04/07/21 - S/p Tocilizumab 03/21/2021 - Intubated 03/27/2021; tracheostomy performed 04/05/21 - Continue with lung protective ventilation -Transitioning to pressure support trials: 5 of pressure support 8 of PEEP x4 to 5 hours today ARDS net high-dose steroid protocol - Dexamethasone 20mg x5 days, 10mg x5 days -- completed on 04/06 - Per medication hx review, patient is on prednisone 20mg po daily; on further review, it appears that the prednisone is scheduled 20mg po daily prn for gout flares but last documentation states no recent gout flares and external med refill history does not show recent fill of prednisone. Therefore, no need to taper at this point. Will watch for signs of adrenal insufficiency. Kate as well as [facility] team where contacted on 03/28/2021, unfortunately he is not a candidate from either side. Pneumomediastinum--> resolved Lung abscess on CT 04/09 Right-sided pleural effusion -Status post thoracentesis 04/09; cultures pending CARDIOVASCULAR: Intermittent hypertension - Continue home amlodipine Intermittent hypotension: Resolved Paroxysmal atrial fibrillation with RVR: Currently normal sinus rhythm -Reinitiate metoprolol 25mg po BID -Reinitiate amlodipine 10 mg daily -Diltiazem infusion weaned off -Discontinue amiodarone today Episode of SVT evening of 04/07, 04/09: Resolved Fluids/Renal: - Goal to remain net negative - Diuresis as needed ID: Sinusitis -Appropriate coverage for lung abscess Lung abscess -Levaquin day 5 -Flagyl day 5 -Vancomycin day 3 -Caspofungin day 3 - Nasal MRSA screen negative -Intermittently febrile - Leukocytosis - Sputum cultures with Group G Beta strep -Blood culture x1 coag negative staph I consider this to be a contaminant -Repeat culture data remains negative - BLE venous dopplers performed 04/06 and were negative Bacteremia - Repeat blood cultures 04/08 with 1 bottle growing coag negative staph: Suspect contaminant -Repeat blood cultures remain negative Line holiday 04/08 -MRI spine reviewed no evidence of epidural abscess - MRI cervical, thoracic, and lumbar w/ and w/o contrast ordered; results reviewed - CT chest, abd, pelvis w/ contrast ordered; results reviewed - As needed vecuronium and versed communication analyst during MRI/imaging studies GI/Nutrition: Transaminitis -resolved Elevated lipase: Resolved Necrotizing pancreatitis -Seen on CT scan I believe this had resolved as the patient's lipase levels are within normal limits -Hypertriglyceridemia: Improving -Off propofol Constipation - bowel movement overnight 04/06-04/07 after receiving lactulose, mineral oil, Senna, and methylnaltrexone Heme: Anemia secondary to bone marrow suppression of disease process Endocrine: ICU hyperglycemia protocol --Prophylaxis VTE: Lovenox full anticoagulation GI: Lansoprazole Lines: PIV, Rogers Diet: Increase tube feeds: Impact secondary to recent pancreatitis and radiographic findings Patient's Mrs. Emperatriz Neri [phone] (2) Pneumonia due to COVID-19 virus: Admission and Anticipated Discharge Date Admission Date: March 20, 2021 Supervising Physician Co-Signing Physician Notes Patient remains critically ill I have personally spent 45 minutes of critical care time in the direct management of this patient. This is a life/limb threatening event. This includes time spent evaluating patient, direct bedside care, chart review, placing orders, interpretation of diagnostic studies, discussion with consultants, patient, and/or family members regarding treatment decisions, as well as other required patient management activities. This time is exclusive of all separately billable procedures, and teaching time and separate from and in addition to any other critical care service time. Subjective No overnight events, transition to pressure support trials this morning Physical Exam Physical Exam: General: Glascow Coma Scale: Eyes: 4 spontaneous, Verbal 1T, Motor 1, Total 6T Skin: Warm, dry, Head: Small area of skin breakdown on right face secondary to tube control device Ears, nose, mouth and throat: airway obscured by endotracheal tube Cardiovascular: Normal peripheral perfusion Respiratory: Coarse sounds bilaterally Gastrointestinal: Non distended Musculoskeletal: No deformity, trace edema Results & Data Results & Data ([facility]) Vital Signs (Past 12 Hours) Vital Signs Temp Pulse Resp BP Pulse Ox 04/11/21 05:17 37.3 C 75 91 04/11/21 04:15 68 33 H 90 04/11/21 04:07 37.5 C 54 L 136/60 89 L 04/11/21 03:15 37.6 C H 91 H 183/89 H 93 04/11/21 02:15 37.7 C H 81 197/86 H 93 04/11/21 01:15 37.6 C H 68 165/73 H 94 04/11/21 00:15 37.3 C 67 170/96 H 92 04/11/21 00:06 85 181/88 H 04/10/21 23:41 80 31 H 93 04/10/21 23:15 37.4 C 83 181/88 H 91 04/10/21 23:00 68 04/10/21 22:15 37.3 C 74 157/72 H 91 04/10/21 21:15 37.2 C 72 164/104 H 91 04/10/21 20:53 37.2 C 81 184/84 H 92 04/10/21 20:45 80 31 H 91 04/10/21 20:15 37.1 C 70 174/83 H 94 Laboratory Results 04/11/21 04/11/21 04/11/21 Range/Units 05:22 05:22 05:22 WBC 14.40 H (4.8-10.8) K/uL RBC 3.56 L (4.7-6.1) M/uL Hgb 10.6 L (14.0-18.0) g/dL POC Hgb (14.0-18.0) g/dl Hct 33.6 L (42-52) % POC Hct (42-52) % MCV 94.4 (80-100) fL MCH 29.8 (25-34) pg MCHC 31.5 L (32-36) g/dL RDW Std Deviation 55.5 H (36.4-46.3) fL RDW Coeff of Sujit 16.0 H (11.5-14.5) % Plt Count 244 (130-400) K/uL MPV 10.6 H (7.4-10.4) fL Immature Gran % (Auto) 0.6 % Neut % (Auto) 88.5 % Lymph % (Auto) 3.6 % [place] % (Auto) 7.0 % Eos % (Auto) 0.2 % Baso % (Auto) 0.1 % Neut # (Auto) 12.74 H (1.4-6.5) K/uL Lymph # (Auto) 0.52 L (1.2-3.4) K/uL [place] # (Auto) 1.01 H (0.11-0.59) K/uL Eos # (Auto) 0.03 (0-0.5) K/uL Baso # (Auto) 0.01 (0-0.2) K/uL Immature Gran # (Auto) 0.09 H (0.00-0.02) K/uL Sample Site POC pH (7.35-7.45) POC pCO2 (35-46) mmHg POC pO2 (80-95) mmHg POC HCO3 (19-24) iraida/L POC Total CO2 (24-31) mmol/L POC Base Excess (-9-1.8) iraida/L ABG pH (Temp Correct) (7.35-7.45) ABG pCO2 (Temp Corrct (35-46) mmHg POC ABG pO2 at Pt Temp POC ABG O2 Sat (90-95) % Sher Test O2 Delivery Device POC O2 Rate POC FiO2 % Tidal Volume PEEP POC Sodium (135-144) mmol/L Sodium 153 H (136-145) mmol/L POC Potassium (3.3-5.0) mmol/L Potassium 3.5 (3.5-5.1) mmol/L Chloride 122 H (98-107) mmol/L Carbon Dioxide 25 (21-32) mmol/L Anion Gap 6.0 (3-11) BUN 53 H (7-18) mg/dl Creatinine 1.10 (0.6-1.4) mg/dl Est Cr Clr Drug Dosing 90.7 ml/min Est GFR ( Amer) 84.1 ml/min Est GFR (Non-Af Amer) 72.6 ml/min BUN/Creatinine Ratio 48.3 H (10-20) Glucose 168 H (70-99) mg/dl POC Glucose (70-99) mg/dl Calcium 8.7 (8.5-10.1) mg/dl Ionized Calcium 1.20 (1.12-1.32) mmol/L Phosphorus 3.1 (2.5-4.9) mg/dl Magnesium 2.7 H (1.8-2.4) mg/dl Vancomycin Trough (See Comment) mcg/ml 04/11/21 04/11/21 04/11/21 Range/Units 05:08 05:06 00:13 WBC (4.8-10.8) K/uL RBC (4.7-6.1) M/uL Hgb (14.0-18.0) g/dL POC Hgb 10.2 L (14.0-18.0) g/dl Hct (42-52) % POC Hct 30 L (42-52) % MCV (80-100) fL MCH (25-34) pg MCHC (32-36) g/dL RDW Std Deviation (36.4-46.3) fL RDW Coeff of Sujit (11.5-14.5) % Plt Count (130-400) K/uL MPV (7.4-10.4) fL Immature Gran % (Auto) % Neut % (Auto) % Lymph % (Auto) % [place] % (Auto) % Eos % (Auto) % Baso % (Auto) % Neut # (Auto) (1.4-6.5) K/uL Lymph # (Auto) (1.2-3.4) K/uL [place] # (Auto) (0.11-0.59) K/uL Eos # (Auto) (0-0.5) K/uL Baso # (Auto) (0-0.2) K/uL Immature Gran # (Auto) (0.00-0.02) K/uL Sample Site L Radial POC pH 7.39 (7.35-7.45) POC pCO2 41 (35-46) mmHg POC pO2 60 L (80-95) mmHg POC HCO3 25 H (19-24) iraida/L POC Total CO2 26 (24-31) mmol/L POC Base Excess 0.0 (-9-1.8) iraida/L ABG pH (Temp Correct) 7.388 (7.35-7.45) ABG pCO2 (Temp Corrct 42 (35-46) mmHg POC ABG pO2 at Pt Temp 61 POC ABG O2 Sat 90.0 (90-95) % Sher Test Pass O2 Delivery Device Ventilator POC O2 Rate 26 POC FiO2 50 % Tidal Volume 520 PEEP 8 POC Sodium 154 H (135-144) mmol/L Sodium (136-145) mmol/L POC Potassium 3.4 (3.3-5.0) mmol/L Potassium (3.5-5.1) mmol/L Chloride (98-107) mmol/L Carbon Dioxide (21-32) mmol/L Anion Gap (3-11) BUN (7-18) mg/dl Creatinine (0.6-1.4) mg/dl Est Cr Clr Drug Dosing ml/min Est GFR ( Amer) ml/min Est GFR (Non-Af Amer) ml/min BUN/Creatinine Ratio (10-20) Glucose (70-99) mg/dl POC Glucose 145 H 174 H (70-99) mg/dl Calcium (8.5-10.1) mg/dl Ionized Calcium (1.12-1.32) mmol/L Phosphorus (2.5-4.9) mg/dl Magnesium (1.8-2.4) mg/dl Vancomycin Trough (See Comment) mcg/ml 04/10/21 04/10/21 04/10/21 Range/Units 21:44 20:25 16:05 WBC (4.8-10.8) K/uL RBC (4.7-6.1) M/uL Hgb (14.0-18.0) g/dL POC Hgb (14.0-18.0) g/dl Hct (42-52) % POC Hct (42-52) % MCV (80-100) fL MCH (25-34) pg MCHC (32-36) g/dL RDW Std Deviation (36.4-46.3) fL RDW Coeff of Sujit (11.5-14.5) % Plt Count (130-400) K/uL MPV (7.4-10.4) fL Immature Gran % (Auto) % Neut % (Auto) % Lymph % (Auto) % [place] % (Auto) % Eos % (Auto) % Baso % (Auto) % Neut # (Auto) (1.4-6.5) K/uL Lymph # (Auto) (1.2-3.4) K/uL [place] # (Auto) (0.11-0.59) K/uL Eos # (Auto) (0-0.5) K/uL Baso # (Auto) (0-0.2) K/uL Immature Gran # (Auto) (0.00-0.02) K/uL Sample Site POC pH (7.35-7.45) POC pCO2 (35-46) mmHg POC pO2 (80-95) mmHg POC HCO3 (19-24) iraida/L POC Total CO2 (24-31) mmol/L POC Base Excess (-9-1.8) iraida/L ABG pH (Temp Correct) (7.35-7.45) ABG pCO2 (Temp Corrct (35-46) mmHg POC ABG pO2 at Pt Temp POC ABG O2 Sat (90-95) % Sher Test O2 Delivery Device POC O2 Rate POC FiO2 % Tidal Volume PEEP POC Sodium (135-144) mmol/L Sodium (136-145) mmol/L POC Potassium (3.3-5.0) mmol/L Potassium (3.5-5.1) mmol/L Chloride (98-107) mmol/L Carbon Dioxide (21-32) mmol/L Anion Gap (3-11) BUN (7-18) mg/dl Creatinine (0.6-1.4) mg/dl Est Cr Clr Drug Dosing ml/min Est GFR ( Amer) ml/min Est GFR (Non-Af Amer) ml/min BUN/Creatinine Ratio (10-20) Glucose (70-99) mg/dl POC Glucose 156 H 148 H (70-99) mg/dl Calcium (8.5-10.1) mg/dl Ionized Calcium (1.12-1.32) mmol/L Phosphorus (2.5-4.9) mg/dl Magnesium (1.8-2.4) mg/dl Vancomycin Trough 19.3 (See Comment) mcg/ml 04/10/21 04/10/21 Range/Units 11:17 09:15 WBC (4.8-10.8) K/uL RBC (4.7-6.1) M/uL Hgb (14.0-18.0) g/dL POC Hgb (14.0-18.0) g/dl Hct (42-52) % POC Hct (42-52) % MCV (80-100) fL MCH (25-34) pg MCHC (32-36) g/dL RDW Std Deviation (36.4-46.3) fL RDW Coeff of Sujit (11.5-14.5) % Plt Count (130-400) K/uL MPV (7.4-10.4) fL Immature Gran % (Auto) % Neut % (Auto) % Lymph % (Auto) % [place] % (Auto) % Eos % (Auto) % Baso % (Auto) % Neut # (Auto) (1.4-6.5) K/uL Lymph # (Auto) (1.2-3.4) K/uL [place] # (Auto) (0.11-0.59) K/uL Eos # (Auto) (0-0.5) K/uL Baso # (Auto) (0-0.2) K/uL Immature Gran # (Auto) (0.00-0.02) K/uL Sample Site POC pH (7.35-7.45) POC pCO2 (35-46) mmHg POC pO2 (80-95) mmHg POC HCO3 (19-24) iraida/L POC Total CO2 (24-31) mmol/L POC Base Excess (-9-1.8) iraida/L ABG pH (Temp Correct) (7.35-7.45) ABG pCO2 (Temp Corrct (35-46) mmHg POC ABG pO2 at Pt Temp POC ABG O2 Sat (90-95) % Hser Test O2 Delivery Device POC O2 Rate POC FiO2 % Tidal Volume PEEP POC Sodium (135-144) mmol/L Sodium (136-145) mmol/L POC Potassium (3.3-5.0) mmol/L Potassium (3.5-5.1) mmol/L Chloride (98-107) mmol/L Carbon Dioxide (21-32) mmol/L Anion Gap (3-11) BUN (7-18) mg/dl Creatinine (0.6-1.4) mg/dl Est Cr Clr Drug Dosing ml/min Est GFR ( Amer) ml/min Est GFR (Non-Af Amer) ml/min BUN/Creatinine Ratio (10-20) Glucose (70-99) mg/dl POC Glucose 161 H 162 H (70-99) mg/dl Calcium (8.5-10.1) mg/dl Ionized Calcium (1.12-1.32) mmol/L Phosphorus (2.5-4.9) mg/dl Magnesium (1.8-2.4) mg/dl Vancomycin Trough (See Comment) mcg/ml Coding Level of Care Code Critical Care 1st 30-74 mins Diagnoses Acute respiratory failure with hypoxia J96.01 Pneumonia due to COVID-19 virus U07.1; J12.82
--- NOTE | 2021-04-11 08:12 | Pharmacy Report ---
Pharmacy Abx Dose Short Note - Date of Service April 11, 2021 - Assessment & Plan Assessment 61 year old M receiving IV vancomycin ( + levofloxacin, metronidazole, and caspofungin) for treatment of lung abscess. 04/08 blood cultures (+) CoNS in 1/4, likely contaminant. 04/09 repeat blood cultures NGTD. Pleural fluid cultures pending. MRSA nasal (-). Renal function stable. Day # 3 of antimicrobial (vancomycin) therapy. Plan Vancomycin * Trough level of 19.3 mcg/mL is therapeutic. Level was ~ an 11hr level and was not a steady state level. Additional accumulation will occur. * Change to 1250 mg IV every 12 hours * Goal trough level for pneumonia/abscess: 15-20mcg/mL * Trough or random level ordered for: 9/13 AM Pharmacy will continue to follow and will adjust dose/frequency as necessary. Thank you.
--- NOTE | 2021-04-11 09:49 | XRay Report ---
XR chest 1V portable HISTORY: 61 years-old Male Resp failure acute respiratory failure COMPARISON: Chest radiograph 04/09/2021 TECHNIQUE: Portable AP view of the chest FINDINGS: Tracheostomy tube overlies the midline at the level the clavicular heads. Feeding tube projects over the proximal stomach. Cardiomegaly. No pneumothorax. Small right pleural effusion. Extensive bilatera l mixed interstitial and alveolar opacities redemonstrated and have mildly progressed. Bones appear g rossly intact. IMPRESSION: 1. Feeding tube distal tip projects over the proximal stomach. 2. Cardiomegaly with extensive bilateral pulmonary opacities, right greater than left. These appear s table to mildly progressed from comparison. 3. Small right pleural effusion. ACT 112: Negative or not required by law. The above report was generated using voice recognition software. It may contain grammatical, syntax o r spelling errors. Electronically signed by: Arpit Dutton M.D. 04/11/2021 9:47 AM
[2021-04-11] MEDS: levoFLOXacin/D5W 750 MG/150 ML BAG IV SCH (10:02)
[2021-04-11] MEDS: METOPROLOL TARTRATE 25 MG TAB PO SCH ×2 (10:02→20:33)
[2021-04-11] MEDS: VANCOMYCIN HCL 1,250 MG in SODIUM CHLORIDE 0.9% 250 ML IV SCH ×2 (10:03→22:13)
[2021-04-11] MEDS: OLANZapine 10 MG TAB PO SCH (10:03)
[2021-04-11] MEDS: ENOXAPARIN INJ 120 MG/0.8 ML SYR SQ SCH ×2 (10:04→20:31)
[2021-04-11] MEDS: SENNOSIDES 8.8 MG/5 ML UDC PO SCH ×2 (10:06→20:27)
[2021-04-11] MEDS: LANSOPRAZOLE 30 MG SOLTAB OG SCH ×2 (10:06→20:33)
[2021-04-11] MEDS: amLODIPine BESYLATE 5 MG TAB PO SCH (10:09)
[2021-04-11] MEDS: CASPOFUNGIN 50 MG in SODIUM CHLORIDE 0.9% 250 ML IV SCH (18:03)
[2021-04-11] MEDS: fentaNYL citrate 2,500 MCG/250 ML BAG IV SCH (18:03)
--- NOTE | 2021-04-11 18:14 | Hospitalist Progress Note ---
Date of Service April 11, 2021 Assessment & Plan (1) Acute respiratory failure with hypoxia: Plan: due to COVID 19 pneumonia, bilateral infiltrates on CXR Was requiring prone positioning and BiPAP while awake, but then weaned down to wall high flow nasal cannula at 11-15 L on 03/23 However, on 03/24 worsened again was placed back on Vapotherm high flow nasal cannula On 03/25, requiring higher amounts of oxygen at 40 L and up to 80 % FiO2 to maintain pulse ox 90-91% On 03/26 switched to Ventilator HFNC at 60L, 100% FiO2 to keep POx>88%---> continued to decompensate on the morning of 03/27 and was intubated and proned He was not a candidate for ECMO Previously had pneumomediastinum which is now resolved Status post tocilizumab on 03/21 CRP trended downward Completed a course of high-dose dexamethasone initially with 10 mg daily and then on 03/28, increased to 20 mg daily x5 days, then 10 mg daily x5 days Has been given intermittent doses of IV Lasix -Give 1 dose of Diuril 500 mg IV x1 on 04/11 to potentiate lowering of sodium level in addition to diuresis Ventilator management as per press offbearer-pressure support trial on 04/11 Now status post tracheostomy on 04/05 Continue to wean off ventilator as able to Chest x-ray still with significant bilateral infiltrates Fentanyl only as needed-weaning down Intermittent Versed as needed agitation Zyprexa 10 mg daily for ICU delirium EEG with moderate to severe encephalopathy, no seizure activity Having trouble waking up and moving limbs-MRIs of C/T/L-spine all negative Fevers were also contributing to encephalopathy-fevers are now resolved as below (2) Fever: Plan: With sepsis Fevers started on 04/02, then resolved UA normal on 04/02 CXR with persistent infiltrates, sputum culture with group C beta strep blood cultures - no growth from 04/02, but blood cultures positive on 04/09 for coagulase-negative Staphylococcus in 1/2 sets-likely contaminant Blood cultures 04/10-no growth to date He then continued with persistent fevers from 04/05-04/10-now finally resolving acute sinusitis/large mastoid effusions seen on MRI brain right lung abscess on CT chest on [id number] cultures-negative AFB, culture no growth to date Central and arterial lines have been removed and replaced with peripheral IVs Dopplers of lower extremities negative for DVT CT chest/abdomen/pelvis significant for lung abscess, necrotizing pancreatitis but lipase normal MRIs of cervical/thoracic/lumbar spine without epidural abscess or discitis MRSA swab remains negative WBC count jumped up to 23 and now down to 14 Previously on Zosyn but was discontinued on 04/06 -Started cefepime and vancomycin on 04/06 for broad-spectrum coverage x1 dose -changed to Levaquin and Flagyl on 04/07 -Restarted vancomycin again on 04/09 for bacteremia -Added caspofungin on given lung abscess and Fungitell sent on 04/09 -Follow CBC (3) SVT (supraventricular tachycardia): Plan: Had SVT to the 200s on the evening of 04/07 with associated hypotension requiring esmolol, amiodarone, adenosine x3, synchronized cardioversion x5 Also had further atrial fibrillation on 04/07 and again on the night of 04/09 Now back in normal sinus rhythm -Restart metoprolol 25 mg per NG tube twice daily and DC IV Lopressor -Discontinue amiodarone drip which was started during SVT -Discontinue diltiazem drip Continue to replace electrolytes as needed Now on therapeutic Lovenox due to paroxysmal atrial fibrillation -Echocardiogram pending (4) Pneumonia due to COVID-19 virus: Plan: As above still requiring mechanical ventilation, now status post tracheostomy (5) Transaminitis: Plan: Persists, likely secondary to COVID-19 infection, but could be medication side effect Improving (6) Bradycardia: Plan: with sinus terry initially while on BIPAP prior to intubation Since that time, has had intermittent bradycardia and SVT, rapid atrial fibrillation With atrial fibrillation briefly on the night of 04/05 and SVT on the evening of 04/07 -Continue metoprolol 25 mg per NG tube twice daily (7) Hypotension: Plan: Has intermittently required vasopressors especially with SVT and rapid atrial fibrillation Now resolved, off vasopressors and now persistently hypertensive (8) Hypertension: Plan: Now with significant hypertension especially is weaning off sedation Has received IV Lasix and albumin intermittently Giving IV Diuril 500 mg on 04/11 Restarted amlodipine 10 mg daily on 04/11 -Restarted metoprolol 25 mg twice daily on 04/11 IV hydralazine as needed (9) Pneumomediastinum: Plan: Now resolved (10) ROSARIO (acute kidney injury): Plan: -Early in the course, now resolved Making urine, Rogers catheter in place Lasix and IV Diuril PRN to keep negative fluid balance (11) Elevated troponin: Plan: Troponin elevated at 0.13/0.1/0.09 Could be myocardial demand ischemia given ongoing SIRS/sepsis, although ECG with ST depression and T wave inversions in lateral leads which is not changed from 3 days prior Doubt acute coronary syndrome (12) Hypokalemia: Plan: Replace again today with potassium chloride 40 mEq to keep K greater than 4 (13) BPH loc w urin obs/LUTS: Plan: Rogers catheter in place (14) Lung abscess: Plan: As above Status post aspiration Follow cultures-no growth to date Continue levofloxacin, metronidazole, vancomycin, and caspofungin Follow-up Fungitell (15) Pancreatitis: Plan: Visualized on CT of the abdomen with suspected necrotizing pancreatitis Lipase normal, triglycerides improving Difficult to tell patient is having pain Continue tube feeds Plan: DVT prophylaxis: therapeutic Lovenox, SCDs Disposition: Continued stay in ICU, very guarded prognosis CODE STATUS: conditional code with no compressions Admission and Anticipated Discharge Date Admission Date: March 20, 2021 Subjective Patient was on CPAP for 4 hours today and now back on the vent, stacking his breaths at times. Remains in sinus rhythm and hypertensive at times. Fevers are finally resolved Weaning down on fentanyl to 75 mcg/h all day today. Remains on Zyprexa 10 mg daily and received one dose of Versed last night I discussed his care with the press offbearer Review of Systems Review of Systems: Unobtainable due to cognitive status Physical Exam Constitutional: WD/WN, vitals as above + ill appearing and + mechanically ventilated Neck: + tracheostomy present Results & Data Results & Data ([facility]) Vital Signs (Past 12 Hours) Vital Signs Temp Pulse Resp BP Pulse Ox 04/11/21 18:02 37.0 C 89 150/86 H 92 04/11/21 17:02 37.2 C 85 170/89 H 93 04/11/21 16:02 37.2 C 73 179/86 H 94 04/11/21 16:00 82 04/11/21 15:38 82 28 H 93 04/11/21 15:02 37.3 C 64 174/78 H 93 04/11/21 14:02 37.4 C 76 173/87 H 93 04/11/21 13:02 37.5 C 81 171/78 H 94 04/11/21 11:27 69 30 H 93 04/11/21 11:02 37.4 C 97 H 181/93 H 92 04/11/21 10:15 37.5 C 88 163/76 H 93 04/11/21 09:15 37.6 C H 82 157/76 H 94 04/11/21 08:15 37.4 C 77 142/75 H 92 04/11/21 08:00 72 04/11/21 07:37 70 23 92 04/11/21 07:15 37.2 C 76 142/74 H 91 Laboratory Results 04/11/21 04/11/21 04/11/21 Range/Units 17:00 13:48 10:25 WBC (4.8-10.8) K/uL RBC (4.7-6.1) M/uL Hgb (14.0-18.0) g/dL POC Hgb (14.0-18.0) g/dl Hct (42-52) % POC Hct (42-52) % MCV (80-100) fL MCH (25-34) pg MCHC (32-36) g/dL RDW Std Deviation (36.4-46.3) fL RDW Coeff of Sujit (11.5-14.5) % Plt Count (130-400) K/uL MPV (7.4-10.4) fL Immature Gran % (Auto) % Neut % (Auto) % Lymph % (Auto) % [place] % (Auto) % Eos % (Auto) % Baso % (Auto) % Neut # (Auto) (1.4-6.5) K/uL Lymph # (Auto) (1.2-3.4) K/uL [place] # (Auto) (0.11-0.59) K/uL Eos # (Auto) (0-0.5) K/uL Baso # (Auto) (0-0.2) K/uL Immature Gran # (Auto) (0.00-0.02) K/uL Sample Site POC pH (7.35-7.45) POC pCO2 (35-46) mmHg POC pO2 (80-95) mmHg POC HCO3 (19-24) iraida/L POC Total CO2 (24-31) mmol/L POC Base Excess (-9-1.8) [place]/L ABG pH (Temp Correct) (7.35-7.45) ABG pCO2 (Temp Corrct (35-46) mmHg POC ABG pO2 at Pt Temp POC ABG O2 Sat (90-95) % Sher Test O2 Delivery Device POC O2 Rate POC FiO2 % Tidal Volume PEEP POC Sodium (135-144) mmol/L Sodium (136-145) mmol/L POC Potassium (3.3-5.0) mmol/L Potassium (3.5-5.1) mmol/L Chloride (98-107) mmol/L Carbon Dioxide (21-32) mmol/L Anion Gap (3-11) BUN (7-18) mg/dl Creatinine (0.6-1.4) mg/dl Est Cr Clr Drug Dosing ml/min Est GFR ( Amer) ml/min Est GFR (Non-Af Amer) ml/min BUN/Creatinine Ratio (10-20) Glucose (70-99) mg/dl POC Glucose 115 H 162 H 168 H (70-99) mg/dl Calcium (8.5-10.1) mg/dl Ionized Calcium (1.12-1.32) mmol/L Phosphorus (2.5-4.9) mg/dl Magnesium (1.8-2.4) mg/dl Vancomycin Trough (See Comment) mcg/ml 04/11/21 04/11/21 04/11/21 Range/Units 05:22 05:22 05:22 WBC 14.40 H (4.8-10.8) K/uL RBC 3.56 L (4.7-6.1) M/uL Hgb 10.6 L (14.0-18.0) g/dL POC Hgb (14.0-18.0) g/dl Hct 33.6 L (42-52) % POC Hct (42-52) % MCV 94.4 (80-100) fL MCH 29.8 (25-34) pg MCHC 31.5 L (32-36) g/dL RDW Std Deviation 55.5 H (36.4-46.3) fL RDW Coeff of Sujit 16.0 H (11.5-14.5) % Plt Count 244 (130-400) K/uL MPV 10.6 H (7.4-10.4) fL Immature Gran % (Auto) 0.6 % Neut % (Auto) 88.5 % Lymph % (Auto) 3.6 % [place] % (Auto) 7.0 % Eos % (Auto) 0.2 % Baso % (Auto) 0.1 % Neut # (Auto) 12.74 H (1.4-6.5) K/uL Lymph # (Auto) 0.52 L (1.2-3.4) K/uL [place] # (Auto) 1.01 H (0.11-0.59) K/uL Eos # (Auto) 0.03 (0-0.5) K/uL Baso # (Auto) 0.01 (0-0.2) K/uL Immature Gran # (Auto) 0.09 H (0.00-0.02) K/uL Sample Site POC pH (7.35-7.45) POC pCO2 (35-46) mmHg POC pO2 (80-95) mmHg POC HCO3 (19-24) iraida/L POC Total CO2 (24-31) mmol/L POC Base Excess (-9-1.8) [place]ida/L ABG pH (Temp Correct) (7.35-7.45) ABG pCO2 (Temp Corrct (35-46) mmHg POC ABG pO2 at Pt Temp POC ABG O2 Sat (90-95) % Sher Test O2 Delivery Device POC O2 Rate POC FiO2 % Tidal Volume PEEP POC Sodium (135-144) mmol/L Sodium 153 H (136-145) mmol/L POC Potassium (3.3-5.0) mmol/L Potassium 3.5 (3.5-5.1) mmol/L Chloride 122 H (98-107) mmol/L Carbon Dioxide 25 (21-32) mmol/L Anion Gap 6.0 (3-11) BUN 53 H (7-18) mg/dl Creatinine 1.10 (0.6-1.4) mg/dl Est Cr Clr Drug Dosing 90.7 ml/min Est GFR ( Amer) 84.1 ml/min Est GFR (Non-Af Amer) 72.6 ml/min BUN/Creatinine Ratio 48.3 H (10-20) Glucose 168 H (70-99) mg/dl POC Glucose (70-99) mg/dl Calcium 8.7 (8.5-10.1) mg/dl Ionized Calcium 1.20 (1.12-1.32) mmol/L Phosphorus 3.1 (2.5-4.9) mg/dl Magnesium 2.7 H (1.8-2.4) mg/dl Vancomycin Trough (See Comment) mcg/ml 04/11/21 04/11/21 04/11/21 Range/Units 05:08 05:06 00:13 WBC (4.8-10.8) K/uL RBC (4.7-6.1) M/uL Hgb (14.0-18.0) g/dL POC Hgb 10.2 L (14.0-18.0) g/dl Hct (42-52) % POC Hct 30 L (42-52) % MCV (80-100) fL MCH (25-34) pg MCHC (32-36) g/dL RDW Std Deviation (36.4-46.3) fL RDW Coeff of Sujit (11.5-14.5) % Plt Count (130-400) K/uL MPV (7.4-10.4) fL Immature Gran % (Auto) % Neut % (Auto) % Lymph % (Auto) % [place] % (Auto) % Eos % (Auto) % Baso % (Auto) % Neut # (Auto) (1.4-6.5) K/uL Lymph # (Auto) (1.2-3.4) K/uL [place] # (Auto) (0.11-0.59) K/uL Eos # (Auto) (0-0.5) K/uL Baso # (Auto) (0-0.2) K/uL Immature Gran # (Auto) (0.00-0.02) K/uL Sample Site L Radial POC pH 7.39 (7.35-7.45) POC pCO2 41 (35-46) mmHg POC pO2 60 L (80-95) mmHg POC HCO3 25 H (19-24) iraida/L POC Total CO2 26 (24-31) mmol/L POC Base Excess 0.0 (-9-1.8) [place]/L ABG pH (Temp Correct) 7.388 (7.35-7.45) ABG pCO2 (Temp Corrct 42 (35-46) mmHg POC ABG pO2 at Pt Temp 61 POC ABG O2 Sat 90.0 (90-95) % Sher Test Pass O2 Delivery Device Ventilator POC O2 Rate 26 POC FiO2 50 % Tidal Volume 520 PEEP 8 POC Sodium 154 H (135-144) mmol/L Sodium (136-145) mmol/L POC Potassium 3.4 (3.3-5.0) mmol/L Potassium (3.5-5.1) mmol/L Chloride (98-107) mmol/L Carbon Dioxide (21-32) mmol/L Anion Gap (3-11) BUN (7-18) mg/dl Creatinine (0.6-1.4) mg/dl Est Cr Clr Drug Dosing ml/min Est GFR ( Amer) ml/min Est GFR (Non-Af Amer) ml/min BUN/Creatinine Ratio (10-20) Glucose (70-99) mg/dl POC Glucose 145 H 174 H (70-99) mg/dl Calcium (8.5-10.1) mg/dl Ionized Calcium (1.12-1.32) mmol/L Phosphorus (2.5-4.9) mg/dl Magnesium (1.8-2.4) mg/dl Vancomycin Trough (See Comment) mcg/ml 04/10/21 04/10/21 Range/Units 21:44 20:25 WBC (4.8-10.8) K/uL RBC (4.7-6.1) M/uL Hgb (14.0-18.0) g/dL POC Hgb (14.0-18.0) g/dl Hct (42-52) % POC Hct (42-52) % MCV (80-100) fL MCH (25-34) pg MCHC (32-36) g/dL RDW Std Deviation (36.4-46.3) fL RDW Coeff of Sujit (11.5-14.5) % Plt Count (130-400) K/uL MPV (7.4-10.4) fL Immature Gran % (Auto) % Neut % (Auto) % Lymph % (Auto) % [place] % (Auto) % Eos % (Auto) % Baso % (Auto) % Neut # (Auto) (1.4-6.5) K/uL Lymph # (Auto) (1.2-3.4) K/uL [place] # (Auto) (0.11-0.59) K/uL Eos # (Auto) (0-0.5) K/uL Baso # (Auto) (0-0.2) K/uL Immature Gran # (Auto) (0.00-0.02) K/uL Sample Site POC pH (7.35-7.45) POC pCO2 (35-46) mmHg POC pO2 (80-95) mmHg POC HCO3 (19-24) iraida/L POC Total CO2 (24-31) mmol/L POC Base Excess (-9-1.8) iraida/L ABG pH (Temp Correct) (7.35-7.45) ABG pCO2 (Temp Corrct (35-46) mmHg POC ABG pO2 at Pt Temp POC ABG O2 Sat (90-95) % Sher Test O2 Delivery Device POC O2 Rate POC FiO2 % Tidal Volume PEEP POC Sodium (135-144) mmol/L Sodium (136-145) mmol/L POC Potassium (3.3-5.0) mmol/L Potassium (3.5-5.1) mmol/L Chloride (98-107) mmol/L Carbon Dioxide (21-32) mmol/L Anion Gap (3-11) BUN (7-18) mg/dl Creatinine (0.6-1.4) mg/dl Est Cr Clr Drug Dosing ml/min Est GFR ( Amer) ml/min Est GFR (Non-Af Amer) ml/min BUN/Creatinine Ratio (10-20) Glucose (70-99) mg/dl POC Glucose 156 H (70-99) mg/dl Calcium (8.5-10.1) mg/dl Ionized Calcium (1.12-1.32) mmol/L Phosphorus (2.5-4.9) mg/dl Magnesium (1.8-2.4) mg/dl Vancomycin Trough 19.3 (See Comment) mcg/ml PG Care Time/CCT Total # of Minutes Spent Total Time Spent with Patient: Total time spent is greater than 50% in coordination of care (as documented) at patient's floor/unit and/or counseling patient: Coding Level of Care Code 98783 Subseq Hosp Care Lvl 2 Diagnoses Acute respiratory failure with hypoxia J96.01 Fever R50.9 SVT (supraventricular tachycardia) I47.1 Pneumonia due to COVID-19 virus U07.1; J12.82 Transaminitis R74.01 Bradycardia R00.1 Hypotension I95.9 Pneumomediastinum J98.2 ROSARIO (acute kidney injury) N17.9 Elevated troponin R77.8 Hypokalemia E87.6 BPH loc w urin obs/LUTS N40.1 Lung abscess J85.2 Pancreatitis K85.90 Hypertension I10
[2021-04-11] MEDS ORDERED: CHLOROTHIAZIDE SODIUM 500 MG in DEXTROSE 5% 50 ML IV ONE (19:00)
[2021-04-11] MEDS: hydrALAZINE HCL 20 MG/ML VIAL IV PRN (20:44)
[2021-04-12] MEDS ORDERED: MIDAZOLAM HCL 1 MG/ML 2ML VIAL IV STA ×2 (00:26→05:29)
[2021-04-12] MEDS: INSULIN ASPART 100 UNITS/ML 3 ML PEN SC SCH ×7 (00:26→23:28)
[2021-04-12] MEDS: metroNIDAZOLE 500 MG/100 ML BAG IV SCH ×3 (01:51→18:05)
[2021-04-12] MEDS: ARTIFICIAL TEARS OP OINT 3.5 GM TUBE OP SCH ×3 (01:52→08:10)
[2021-04-12 05:08] LABS: iSTAT Allen Test Pass; iSTAT Art Bld Gas pCO2 Correct 49 mmHg (35-46); iSTAT Art Bld Gas pH Corrected 7.343 (7.35-7.45); iSTAT Arterial Blood Gas HCO3 27 meg/L (19-24); iSTAT Arterial Blood Gas pCO2 49 mmHg (35-46); iSTAT Arterial Blood Gas pH 7.35 (7.35-7.45); iSTAT Arterial Blood Gas pO2 66 mmHg (80-95); iSTAT Arterial Blood Gas pO2 C 67; iSTAT Carbon Dioxide 28 mmol/L (24-31); iSTAT FiO2 50 %; iSTAT Hematocrit 29 % (42-52); iSTAT Hemoglobin 9.9 g/dl (14.0-18.0); iSTAT Potassium 3.7 mmol/L (3.3-5.0); iSTAT Site L Radial; iSTAT Sodium 156 mmol/L (135-144)
[2021-04-12 05:26] LABS: Basophils # (auto) 0.02 K/uL (0-0.2); Basophils % (auto) 0.2 %; Eosinophils # (auto) 0.14 K/uL (0-0.5); Eosinophils % (auto) 1.1 %; Hematocrit (blood only) 34.3 % (42-52); Hemoglobin 10.5 g/dL (14.0-18.0); Immature Granulocytes % (auto) 0.8 %; Lymphocytes # (auto) 0.42 K/uL (1.2-3.4); Lymphocytes % (auto) 3.4 %; Mean Corpuscular Hemoglobin 29.7 pg (25-34); Mean Corpuscular Hgb Conc 30.6 g/dL (32-36); Mean Corpuscular Volume 96.9 fL (80-100); Mean Platelet Volume 10.5 fL (7.4-10.4); Monocytes # (auto) 0.97 K/uL (0.11-0.59); Monocytes % (auto) 7.9 %; Neutrophils % (auto) 86.6 %; Platelet Count 259 K/uL (130-400); RDW Coefficient of Variation 16.4 % (11.5-14.5); RDW Standard Deviation 58.6 fL (36.4-46.3); Red Blood Count 3.54 M/uL (4.7-6.1); White Blood Count 12.25 K/uL (4.8-10.8)
[2021-04-12 06:03] LABS: Albumin Level 1.8 gm/dl (3.4-5.0); BUN Creatinine Ratio 44.3 (10-20); Bilirubin Direct 0.2 mg/dl (0-0.2); Bilirubin,Total 0.4 mg/dl (0.2-1); Calcium 8.8 mg/dl (8.5-10.1); Creatinine Clr Calc Pharmacy 70.5 ml/min; Est GFR (African American) 79.7 ml/min; Est GFR (Non-African American) 68.8 ml/min; Magnesium 2.9 mg/dl (1.8-2.4); Phosphorus 3.9 mg/dl (2.5-4.9); Potassium 3.9 mmol/L (3.5-5.1); Total Protein 5.9 gm/dl (6.4-8.2)
[2021-04-12] MEDS: TUBE FEEDING WATER FLUSH GT SCH ×5 (07:15→23:31)
[2021-04-12] MEDS: fentaNYL citrate 2,500 MCG/250 ML BAG IV SCH (08:02)
[2021-04-12] MEDS: METOPROLOL TARTRATE 25 MG TAB PO SCH ×2 (08:09→20:38)
[2021-04-12] MEDS: ENOXAPARIN INJ 120 MG/0.8 ML SYR SQ SCH ×2 (08:09→20:37)
[2021-04-12] MEDS: LANSOPRAZOLE 30 MG SOLTAB OG SCH ×2 (08:09→20:38)
[2021-04-12] MEDS: OLANZapine 10 MG TAB PO SCH (08:09)
[2021-04-12] MEDS: amLODIPine BESYLATE 5 MG TAB PO SCH (08:09)
[2021-04-12] MEDS: SENNOSIDES 8.8 MG/5 ML UDC PO SCH (08:10)
--- NOTE | 2021-04-12 08:25 | XRay Report ---
XR chest 1V portable INDICATION: MN ^Resp failure . TECHNIQUE: Single frontal radiograph of the chest was obtained. Comparison: Comparison is made to Chest 1 view 04/11/2021 FINDINGS: Lines and tubes are stable. The cardiomediastinal silhouette is stable. Interval minimal improvement in aeration of the lungs with airspace opacity still seen most prominently in the right lung and left lower lung. There is likely a small to moderate right pleural effusion. No evidence of pneumothorax or left effusion. IMPRESSION: 1. Redemonstration of diffuse airspace opacities which are somewhat improved compared to the prior e xam. 2. Small moderate right pleural effusion. ACT 112: Negative or not required by law. Electronically signed by: Fco Olivo M.D. 04/12/2021 8:24 AM
[2021-04-12] MEDS: DEXTROSE 5% 1,000 ML IV SCH ×2 (09:26→21:20)
[2021-04-12] MEDS ORDERED: VANCOMYCIN TROUGH ONE (09:30)
[2021-04-12] MEDS ORDERED: ARTIFICIAL TEARS OP OINT 3.5 GM TUBE OP PRN (10:00)
[2021-04-12 10:15] LABS: BUN Creatinine Ratio 44.3 (10-20); Calcium 8.6 mg/dl (8.5-10.1); Creatinine Clr Calc Pharmacy 70.5 ml/min; Est GFR (African American) 79.7 ml/min; Est GFR (Non-African American) 68.8 ml/min; Potassium 4.1 mmol/L (3.5-5.1)
[2021-04-12] MEDS: levoFLOXacin/D5W 750 MG/150 ML BAG IV SCH (10:31)
[2021-04-12] MEDS ORDERED: GLUCAGON FOR INJ 1 MG VIAL SQ PRN (10:45)
[2021-04-12] MEDS ORDERED: DEXTROSE 50% 50 ML SYRINGE IV PRN (10:45)
[2021-04-12] MEDS ORDERED: GLUCOSE 10 TABS/TUBE PO PRN (10:45)
[2021-04-12] MEDS ORDERED: CARBOHYDRATES FOR HYPOGLYCEMIA PO PRN (10:45)
[2021-04-12] MEDS ORDERED: GLUCOSE 40% GEL 15 GM TUBE PO PRN (10:45)
[2021-04-12] MEDS ORDERED: SENNOSIDES 8.8 MG/5 ML UDC PO PRN (10:45)
[2021-04-12] MEDS ORDERED: ATROPINE SULFATE 0.1 MG/ML 10ML SYR IV ONE (11:15)
[2021-04-12] MEDS ORDERED: DOPamine 400MG / 250ML D5W IV ONE (11:16)
--- NOTE | 2021-04-12 11:51 | Critical Care Progress Note ---
Date of Service April 12, 2021 Assessment & Plan (1) Acute respiratory failure with hypoxia: Plan: Reason Critically Ill: 61-year-old male with past medical history of hypertension admitted to the hospital for COVID-19 pneumonia and acute hypoxic respiratory failure, intubated 03/27/2021 PLAN: NEURO: Hypoactive delirium -Zyprexa: Increased from 5 to 10 mg on 04/10 -CT Head 04/02/21: Negative for any acute abnormality. -MRI 04/06/21: Acute paranasal sinusitis with large bilateral mastoid effusions. Otherwise largely unremarkable. - EEG report reviewed: 04/10/2021 RESPIRATORY: VDRF with acute hypoxic respiratory failure, secondary to multilobar COVID-19 pneumonia - COVID-19 PCR positive 03/16/2021, remains positive as of 04/07/21 - S/p Tocilizumab 03/21/2021 - Intubated 03/27/2021; tracheostomy performed 04/05/21 - Continue with lung protective ventilation -Continue pressure support as able. ARDS net high-dose steroid protocol - Dexamethasone 20mg x5 days, 10mg x5 days -- completed on 04/06 Pneumomediastinum--> resolved Lung abscess on CT 04/09 Right-sided pleural effusion -Status post thoracentesis 04/09; cultures negative thus far. CARDIOVASCULAR: Intermittent hypertension - Continue home amlodipine Intermittent hypotension: Resolved Paroxysmal atrial fibrillation with RVR: Currently normal sinus rhythm. Continue metoprolol and amlodipine Episode of SVT evening of 04/07, 04/09: Resolved Intermittent episodes of bradycardia noted with suctioning. Pacer pads in p lace. ID: Lung abscess -Levaquin day 5 -Flagyl day 5 -Caspofungin discontinued as no clear indication. MRSA screen pending. If negative will discontinue vancomycin. - Sputum cultures with Group G Beta strep. Repeat sputum cultures ordered. Bacteremia - Repeat blood cultures 04/08 with 1 bottle growing coag negative staph: Suspect contaminant -Repeat blood cultures remain negative -MRI spine reviewed no evidence of epidural abscess - MRI cervical, thoracic, and lumbar w/ and w/o contrast ordered; results reviewed - CT chest, abd, pelvis w/ contrast ordered; results reviewed - As needed vecuronium and versed fund controller during MRI/imaging studies GI/Nutrition: Transaminitis -resolved Elevated lipase: Resolved Necrotizing pancreatitis -Seen on CT scan I believe this had resolved as the patient's lipase levels are within normal limits -Hypertriglyceridemia: Improvin Constipation - bowel movement overnight 04/06-04/07 after receiving lactulose, mineral oil, Senna, and methylnaltrexone Heme: Anemia secondary to bone marrow suppression of disease process Endocrine: ICU hyperglycemia protocol --Prophylaxis VTE: Lovenox full anticoagulation GI: Lansoprazole Lines: PIV, Rogers Diet: Increase tube feeds: Impact secondary to recent pancreatitis and radiographic findings Patient's Mrs. Emperatriz Neri [phone] CRITICAL CARE TIME - I have personally spent 40 minutes of critical care time in the direct management of this patient. This is a life/limb threatening event. This includes time spent evaluating patient, direct bedside care, chart review, placing orders, interpretation of diagnostic studies, discussion with consultants, patient, and family members, as well as other required patient management activities. This time is exclusive of all separately billable procedures, and teaching time and separate from and in addition to any other critical care service time. (2) Pneumonia due to COVID-19 virus: Admission and Anticipated Discharge Date Admission Date: March 20, 2021 Subjective Patient seen and examined this morning. He is currently on minimal amounts of fentanyl. He continues to have severe tachypnea. He does open his eyes intermittently to stimulation. He does not follow commands. Review of systems very limited given the patient's altered mental status. Physical Exam Physical Exam: General: Glascow Coma Scale: Eyes: 4 spontaneous, Verbal 1T, Motor 1, Total 6T Skin: Warm, dry, Head: Nontraumatic. Ears, nose, mouth and throat: Tracheostomy in place. No obvious deformities. Cardiovascular: Normal peripheral perfusion Respiratory: Coarse sounds bilaterally Gastrointestinal: Non distended Musculoskeletal: No deformity, trace edema Results & Data Results & Data ([facility]) Vital Signs (Past 12 Hours) Vital Signs Temp Pulse Resp BP Pulse Ox 04/12/21 10:17 99.5 F 84 162/78 H 94 04/12/21 09:17 99.0 F 76 135/69 94 04/12/21 08:17 99.0 F 82 172/83 H 90 04/12/21 07:50 70 28 H 91 04/12/21 07:17 99.0 F 73 163/78 H 94 04/12/21 01:03 99.5 F 74 183/70 H 93 04/12/21 00:32 99.5 F 66 186/85 H 93 04/12/21 00:03 99.1 F 67 04/12/21 00:00 74 vital signs, labs and serum. Coding Level of Care Code Critical Care 1st 30-74 mins Diagnoses Acute respiratory failure with hypoxia J96.01 Pneumonia due to COVID-19 virus U07.1; J12.82 Time Spent (min) 40
[2021-04-12] MEDS: VANCOMYCIN HCL 1,250 MG in SODIUM CHLORIDE 0.9% 250 ML IV SCH (12:02)
[2021-04-12] MEDS: oxyCODONE HCL SOLN 5 MG/5 ML UDC PO SCH ×3 (12:02→23:31)
--- NOTE | 2021-04-12 12:34 | XRay Report ---
XR chest 1V portable HISTORY: 61 years-old Male sudden bradycardia COMPARISON: Chest radiograph of same day at 6:35 AM TECHNIQUE: Portable AP view of the chest FINDINGS: Cardiac silhouette is enlarged. Multifocal right greater than left airspace opacities with associated reticular interstitial coarsening is redemonstrated and appears unchanged. Layering right pleural ef fusion. Stable positioning of the tracheostomy cannula. A feeding tube is noted with distal tip proje cts over the proximal stomach, partially imaged. Bones appear grossly intact. IMPRESSION: 1. Lines and tubes as above. 2. Cardiomegaly with extensive right greater than left bilateral pulmonary opacities redemonstrated. 3. Layering right pleural effusion. ACT 112: Negative or not required by law. The above report was generated using voice recognition software. It may contain grammatical, syntax o r spelling errors. Electronically signed by: Arpit Dutton M.D. 04/12/2021 12:32 PM
[2021-04-12] MEDS: IMPACT LIQD 1.0 CAL 1,000 ML BAG GT SCH (14:38)
[2021-04-12] MEDS: hydrALAZINE HCL 20 MG/ML VIAL IV PRN (15:06)
--- NOTE | 2021-04-12 15:37 | Hospitalist Progress Note ---
Date of Service April 12, 2021 Assessment & Plan (1) Acute respiratory failure with hypoxia: Plan: due to COVID 19 pneumonia, bilateral infiltrates on CXR Was requiring prone positioning and BiPAP while awake, but then weaned down to wall high flow nasal cannula at 11-15 L on 03/23 However, on 03/24 worsened again was placed back on Vapotherm high flow nasal cannula On 03/25, requiring higher amounts of oxygen at 40 L and up to 80 % FiO2 to maintain pulse ox 90-91% On 03/26 switched to Ventilator HFNC at 60L, 100% FiO2 to keep POx>88%---> continued to decompensate on the morning of 03/27 and was intubated and proned He was not a candidate for ECMO Previously had pneumomediastinum which is now resolved Status post tocilizumab on 03/21 Completed a course of high-dose dexamethasone initially with 10 mg daily and then on 03/28, increased to 20 mg daily x5 days, then 10 mg daily x5 days using Diuril for diuresis intermittently, try to lower sodium Ventilator management as per architectural administrative assistant status post tracheostomy on 04/05 brief pressure support today but after bradycardia went back on full ventilator support Chest x-ray still with significant bilateral infiltrates Fentanyl only as needed-weaning down Intermittent Versed as needed agitation Zyprexa 10 mg daily for ICU delirium EEG with moderate to severe encephalopathy, no seizure activity Having trouble waking up and moving limbs-MRIs of C/T/L-spine all negative Fevers were also contributing to encephalopathy guarded prognosis, ICU managing (2) Fever: Plan: With sepsis Fevers started on 04/02, then resolved UA normal on 04/02 CXR with persistent infiltrates, sputum culture with group C beta strep blood cultures - no growth from 04/02, but blood cultures positive on 04/09 for coagulase-negative Staphylococcus in 1/2 sets-likely contaminant Blood cultures 04/10-no growth to date He then continued with persistent fevers from 04/05-04/10 acute sinusitis/large mastoid effusions seen on MRI brain right lung abscess on CT chest on [id number] cultures-negative AFB, culture no growth to date Central and arterial lines have been removed and replaced with peripheral IVs Dopplers of lower extremities negative for DVT CT chest/abdomen/pelvis significant for lung abscess, necrotizing pancreatitis but lipase normal MRIs of cervical/thoracic/lumbar spine without epidural abscess or discitis MRSA swab remains negative WBC count jumped up to 23 and now down to 14 - continue Levaquin and Flagyl, was started 04/07 - continue vancomycin, started 04/09 for bacteremia -Added caspofungin on given lung abscess and Fungitell sent on 04/09 -Follow CBC (3) Bradycardia: Plan: with sinus terry initially while on BIPAP prior to intubation HR dropped to 20's on 04/12, required atropine, pacer pads on hold metoprolol, monitor closely (4) SVT (supraventricular tachycardia): Plan: Had SVT to the 200s on the evening of 04/07 with associated hypotension requiring esmolol, amiodarone, adenosine x3, synchronized cardioversion x5 Also had further atrial fibrillation on 04/07 and again on the night of 04/09 Now back in normal sinus rhythm was on metoprolol 25mg BID Continue to replace electrolytes as needed Now on therapeutic Lovenox due to paroxysmal atrial fibrillation now with bradycardia requiring atropine on 04/12 (5) Pneumonia due to COVID-19 virus: Plan: As above still requiring mechanical ventilation, now status post tracheostomy (6) Transaminitis: Plan: Persists, likely secondary to COVID-19 infection, but could be medication side effect Improving (7) Hypotension: Plan: Has intermittently required vasopressors especially with SVT and rapid atrial f ibrillation Now resolved, off vasopressors and now persistently hypertensive (8) Hypertension: Plan: Now with significant hypertension especially is weaning off sedation Has received IV Lasix and albumin intermittently Giving IV Diuril 500 mg on 04/11 Restarted amlodipine 10 mg daily on 04/11 IV hydralazine as needed (9) Hypokalemia: Plan: monitor daily, ICU replacement protocol (10) BPH loc w urin obs/LUTS: Plan: Rogers catheter in place (11) Lung abscess: Plan: As above Status post aspiration Follow cultures-no growth to date Continue levofloxacin, metronidazole, vancomycin, and caspofungin (12) Pancreatitis: Plan: Visualized on CT of the abdomen with suspected necrotizing pancreatitis Lipase normal, triglycerides improving Difficult to tell patient is having pain Continue tube feeds Plan: DVT prophylaxis: therapeutic Lovenox, SCDs Disposition: Continued stay in ICU, very guarded prognosis CODE STATUS: conditional code with no compressions Admission and Anticipated Discharge Date Admission Date: March 20, 2021 Subjective patient had bradycardia this morning requiring Atropine reviewed chart, since I had him one week ago he has had a tracheostomy placed he is back on ventilator support due to bradycardia he is waking up a little more, ICU managing sedation Review of Systems Review of Systems: Unobtainable due to cognitive status Physical Exam Constitutional: well developed, + obese and + mechanically ventilated (tracheostomy); no acute distress Neck: + tracheostomy present Respiratory: symmetric chest movement (ventilated, supine position); no respiratory distress and no labored breathing Auscultation: no crackles, no rales, no rhonchi and no wheezes Cardiovascular: RRR, no murmur, no edema Gastrointestinal (Abdomen): normal bowel sounds, soft, nontender, no hepatosplenomegaly Musculoskeletal: no cyanosis or clubbing, extremities motor strength 5/5 Head/Neck/Chest: normocephalic, head atraumatic and neck supple Extremities: extremities normal to inspection; no cyanosis, no clubbing and no petechiae Skin: no rashes, warm and dry Neurologic: + obtunded; no focal motor deficits Psychiatric: A+Ox3, euthymic affect Orientation: + not alert Results & Data Results & Data ([facility]) Vital Signs (Past 12 Hours) Vital Signs Temp Pulse Resp BP Pulse Ox 04/12/21 12:32 37.9 C H 73 152/73 H 97 04/12/21 12:02 37.9 C H 83 152/72 H 100 04/12/21 11:32 37.7 C H 90 184/88 H 100 04/12/21 11:16 37.6 C H 104 H 206/54 H 04/12/21 11:15 95 H 32 H 100 04/12/21 11:10 69 28 H 96 04/12/21 10:17 37.5 C 84 162/78 H 94 04/12/21 09:17 37.2 C 76 135/69 94 04/12/21 08:17 37.2 C 82 172/83 H 90 04/12/21 07:50 70 28 H 91 04/12/21 07:17 37.2 C 73 163/78 H 94 Laboratory Results Laboratory Results - last 24 hr 04/11/21 04/11/21 04/12/21 17:00 20:59 00:11 WBC RBC Hgb POC Hgb Hct POC Hct MCV MCH MCHC RDW Std Deviation RDW Coeff of Sujit Plt Count MPV Immature Gran % (Auto) Neut % (Auto) Lymph % (Auto) [place] % (Auto) Eos % (Auto) Baso % (Auto) Neut # (Auto) Lymph # (Auto) [place] # (Auto) Eos # (Auto) Baso # (Auto) Immature Gran # (Auto) Sample Site POC pH POC pCO2 POC pO2 POC HCO3 POC Total CO2 POC Base Excess ABG pH (Temp Correct) ABG pCO2 (Temp Corrct POC ABG pO2 at Pt Temp POC ABG O2 Sat Sher Test O2 Delivery Device POC O2 Rate POC FiO2 Tidal Volume PEEP POC Sodium Sodium POC Potassium Potassium Chloride Carbon Dioxide Anion Gap BUN Creatinine Est Cr Clr Drug Dosing Est GFR ( Amer) Est GFR (Non-Af Amer) BUN/Creatinine Ratio Glucose POC Glucose 115 H 154 H 135 H Calcium Ionized Calcium Phosphorus Magnesium Total Bilirubin Direct Bilirubin AST ALT Alkaline Phosphatase Total Protein Albumin Nasal Screen MRSA (PCR) Vancomycin Trough 04/12/21 04/12/21 04/12/21 04:10 04:38 05:05 WBC 12.25 H RBC 3.54 L Hgb 10.5 L POC Hgb 9.9 L Hct 34.3 L POC Hct 29 L MCV 96.9 MCH 29.7 MCHC 30.6 L RDW Std Deviation 58.6 H RDW Coeff of Sujit 16.4 H Plt Count 259 MPV 10.5 H Immature Gran % (Auto) 0.8 Neut % (Auto) 86.6 Lymph % (Auto) 3.4 [place] % (Auto) 7.9 Eos % (Auto) 1.1 Baso % (Auto) 0.2 Neut # (Auto) 10.60 H Lymph # (Auto) 0.42 L [place] # (Auto) 0.97 H Eos # (Auto) 0.14 Baso # (Auto) 0.02 Immature Gran # (Auto) 0.10 H Sample Site L Radial POC pH 7.35 POC pCO2 49 H POC pO2 66 L POC HCO3 27 H POC Total CO2 28 POC Base Excess 1.0 ABG pH (Temp Correct) 7.343 L ABG pCO2 (Temp Corrct 49 H POC ABG pO2 at Pt Temp 67 POC ABG O2 Sat 91.0 Sher Test Pass O2 Delivery Device Ventilator POC O2 Rate 26 POC FiO2 50 Tidal Volume 500 PEEP 8 POC Sodium 156 H* Sodium POC Potassium 3.7 Potassium Chloride Carbon Dioxide Anion Gap BUN Creatinine Est Cr Clr Drug Dosing Est GFR ( Amer) Est GFR (Non-Af Amer) BUN/Creatinine Ratio Glucose POC Glucose 136 H Calcium Ionized Calcium Phosphorus Magnesium Total Bilirubin Direct Bilirubin AST ALT Alkaline Phosphatase Total Protein Albumin Nasal Screen MRSA (PCR) Vancomycin Trough 04/12/21 04/12/21 04/12/21 05:05 05:05 08:14 WBC RBC Hgb POC Hgb Hct POC Hct MCV MCH MCHC RDW Std Deviation RDW Coeff of Sujit Plt Count MPV Immature Gran % (Auto) Neut % (Auto) Lymph % (Auto) [place] % (Auto) Eos % (Auto) Baso % (Auto) Neut # (Auto) Lymph # (Auto) [place] # (Auto) Eos # (Auto) Baso # (Auto) Immature Gran # (Auto) Sample Site POC pH POC pCO2 POC pO2 POC HCO3 POC Total CO2 POC Base Excess ABG pH (Temp Correct) ABG pCO2 (Temp Corrct POC ABG pO2 at Pt Temp POC ABG O2 Sat Sher Test O2 Delivery Device POC O2 Rate POC FiO2 Tidal Volume PEEP POC Sodium Sodium 157 H* POC Potassium Potassium 3.9 Chloride 124 H Carbon Dioxide 26 Anion Gap 7.0 BUN 51 H Creatinine 1.15 Est Cr Clr Drug Dosing 70.5 Est GFR ( Amer) 79.7 Est GFR (Non-Af Amer) 68.8 BUN/Creatinine Ratio 44.3 H Glucose 151 H POC Glucose 125 H Calcium 8.8 Ionized Calcium 1.26 Phosphorus 3.9 Magnesium 2.9 H Total Bilirubin 0.4 Direct Bilirubin 0.2 AST 16 ALT 33 Alkaline Phosphatase 94 Total Protein 5.9 L Albumin 1.8 L Nasal Screen MRSA (PCR) Vancomycin Trough 04/12/21 04/12/21 04/12/21 09:21 09:21 10:40 WBC RBC Hgb POC Hgb Hct POC Hct MCV MCH MCHC RDW Std Deviation RDW Coeff of Sujit Plt Count MPV Immature Gran % (Auto) Neut % (Auto) Lymph % (Auto) [place] % (Auto) Eos % (Auto) Baso % (Auto) Neut # (Auto) Lymph # (Auto) [place] # (Auto) Eos # (Auto) Baso # (Auto) Immature Gran # (Auto) Sample Site POC pH POC pCO2 POC pO2 POC HCO3 POC Total CO2 POC Base Excess ABG pH (Temp Correct) ABG pCO2 (Temp Corrct POC ABG pO2 at Pt Temp POC ABG O2 Sat Sher Test O2 Delivery Device POC O2 Rate POC FiO2 Tidal Volume PEEP POC Sodium Sodium 156 H* POC Potassium Potassium 4.1 Chloride 126 H Carbon Dioxide 28 Anion Gap 2.0 L BUN 51 H Creatinine 1.15 Est Cr Clr Drug Dosing 70.5 Est GFR ( Amer) 79.7 Est GFR (Non-Af Amer) 68.8 BUN/Creatinine Ratio 44.3 H Glucose 154 H POC Glucose Calcium 8.6 Ionized Calcium Phosphorus Magnesium Total Bilirubin Direct Bilirubin AST ALT Alkaline Phosphatase Total Protein Albumin Nasal Screen MRSA (PCR) Negative Vancomycin Trough 18.9 04/12/21 04/12/21 04/12/21 12:06 14:37 15:24 WBC RBC Hgb POC Hgb Hct POC Hct MCV MCH MCHC RDW Std Deviation RDW Coeff of Sujit Plt Count MPV Immature Gran % (Auto) Neut % (Auto) Lymph % (Auto) [place] % (Auto) Eos % (Auto) Baso % (Auto) Neut # (Auto) Lymph # (Auto) [place] # (Auto) Eos # (Auto) Baso # (Auto) Immature Gran # (Auto) Sample Site POC pH POC pCO2 POC pO2 POC HCO3 POC Total CO2 POC Base Excess ABG pH (Temp Correct) ABG pCO2 (Temp Corrct POC ABG pO2 at Pt Temp POC ABG O2 Sat Sher Test O2 Delivery Device POC O2 Rate POC FiO2 Tidal Volume PEEP POC Sodium Sodium Pending POC Potassium Potassium Pending Chloride Pending Carbon Dioxide Pending Anion Gap Pending BUN Pending Creatinine Pending Est Cr Clr Drug Dosing Pending Est GFR ( Amer) Pending Est GFR (Non-Af Amer) Pending BUN/Creatinine Ratio Pending Glucose Pending POC Glucose 149 H 141 H Calcium Pending Ionized Calcium Phosphorus Magnesium Total Bilirubin Direct Bilirubin AST ALT Alkaline Phosphatase Total Protein Albumin Nasal Screen MRSA (PCR) Vancomycin Trough Medications Administered Current Inpatient Medications Acetaminophen (Acetaminophen 500 Mg Tab) 1,000 mg PO Q6H PRN PRN Reason: Fever or headache Stop: 05/05/21 12:50 Last Admin: 04/08/21 20:55 Dose: 1,000 mg Documented by: Albuterol (Albut/Ipratrop 3mg/0.5mg Neb 3 Ml Vial) 3 ml NEB Q4R PRN PRN Reason: Shortness of Breath/Wheezing Stop: 04/19/21 16:45 Amlodipine Besylate (Amlodipine Besylate 5 Mg Tab) 10 mg PO QAM MARCIA Stop: 04/29/21 08:59 Last Admin: 04/12/21 08:09 Dose: 10 mg Documented by: Dextrose (Dextrose 50% 50 Ml Syringe) 25 - 50 ml IV UD PRN; Protocol PRN Reason: Hypoglycemia Protocol Stop: 05/12/21 10:44 Enoxaparin Sodium (Enoxaparin Inj 120 Mg/0.8 Ml Syr) 120 mg SQ BID MARCIA Stop: 05/08/21 20:59 Last Admin: 04/12/21 08:09 Dose: 120 mg Documented by: Enteral Nutritional Formula (Impact Liqd 1.0 Darrian 1,000 Ml Bag) 1,000 ml GT UD MARCIA; Protocol Stop: 05/10/21 07:59 Last Admin: 04/12/21 14:38 Dose: 1,000 ml Documented by: Glucagon (Glucagon For Inj 1 Mg Vial) 1 mg SQ UD PRN; Protocol PRN Reason: Hypoglycemia Protocol Stop: 05/12/21 10:44 Glucose (Glucose 40% Gel 15 Gm Tube) 15 - 30 gm PO UD PRN; Protocol PRN Reason: Hypoglycemia Protocol Stop: 05/12/21 10:44 Glucose (Glucose 10 Tabs/Tube) 4 - 8 tabs PO UD PRN; Protocol PRN Reason: Hypoglycemia Protocol Stop: 05/12/21 10:44 Hydralazine HCl (Hydralazine Hcl 20 Mg/Ml Vial) 10 mg IV Q6H PRN PRN Reason: hypertension Stop: 05/10/21 20:14 Last Admin: 04/11/21 20:44 Dose: 10 mg Documented by: Fentanyl Citrate (Fentanyl Citrate) 2,500 mcg in 250 mls @ 20 mls/hr IV .[id number] MARCIA; Protocol Stop: 04/16/21 19:29 Last Admin: 04/12/21 08:02 Dose: Not Given Documented by: Levofloxacin/Dextrose (Levaquin/D5w) 750 mg in 150 mls @ 100 mls/hr IV DAILY@1000 MARCIA; Protocol Stop: 04/17/21 10:44 Last Infusion: 04/12/21 12:55 Dose: Infused Documented by: Metronidazole (Flagyl) 500 mg in 100 mls @ 100 mls/hr IV Q8@0200,1000,1800 [facility] Stop: 04/17/21 10:44 Last Infusion: 04/12/21 11:31 Dose: Infused Documented by: Dextrose (D5w) 1,000 mls @ 80 mls/hr IV .[id number] [facility] Stop: 05/12/21 08:29 Last Admin: 04/12/21 09:26 Dose: 80 mls/hr Documented by: Insulin Aspart (Insulin Aspart 100 Units/Ml 3 Ml Pen) 0 units SC Q4 [facility] Stop: 05/07/21 07:59 Last Admin: 04/12/21 12:20 Dose: 2 units Documented by: Lansoprazole (Lansoprazole 30 Mg Soltab) 30 mg OG BID [facility] Stop: 04/27/21 20:59 Last Admin: 04/12/21 08:09 Dose: 30 mg Documented by: Metoprolol Tartrate (Metoprolol Tartrate 25 Mg Tab) 25 mg PO BID [facility] Stop: 05/11/21 08:59 Last Admin: 04/12/21 08:09 Dose: 25 mg Documented by: Miscellaneous (Carbohydrates For Hypoglycemia ) 15 - 30 gm PO UD PRN PRN Reason: Hypoglycemia Treatment Stop: 05/12/21 10:44 Multi-Ingredient Cream (Artificial Tears Op Oint 3.5 Gm Tube) 1 appln OP Q4 PRN PRN Reason: DRY EYES Stop: 04/26/21 08:59 Olanzapine (Olanzapine 10 Mg Tab) 10 mg PO QAM [facility] Stop: 05/10/21 08:59 Last Admin: 04/12/21 08:09 Dose: 10 mg Documented by: Oxycodone HCl (Oxycodone Hcl Soln 5 Mg/5 Ml Udc) 10 mg PO Q6H [facility] Stop: 04/26/21 11:59 Last Admin: 04/12/21 12:02 Dose: 10 mg Documented by: Sennosides (Sennosides 8.8 Mg/5 Ml Udc) 17.6 mg PO BID PRN PRN Reason: CONSTIPATION Stop: 05/06/21 20:59 Sterile Water (Tube Feeding Water Flush) 250 ml GT Q6H [facility] Stop: 05/12/21 11:59 Last Admin: 04/12/21 12:03 Dose: 250 ml Documented by: PG Care Time/CCT Total # of Minutes Spent Total Time Spent with Patient: Total time spent is greater than 50% in coordination of care (as documented) at patient's floor/unit and/or counseling patient: Coding Level of Care Code 53117 Subseq Hosp Care Lvl 3 Diagnoses Acute respiratory failure with hypoxia J96.01 Fever R50.9 SVT (supraventricular tachycardia) I47.1 Pneumonia due to COVID-19 virus U07.1; J12.82 Transaminitis R74.01 Bradycardia R00.1 Hypotension I95.9 Hypertension I10 Hypokalemia E87.6 BPH loc w urin obs/LUTS N40.1 Lung abscess J85.2 Pancreatitis K85.90
[2021-04-12 15:40] LABS: BUN Creatinine Ratio 42.1 (10-20); Calcium 8.4 mg/dl (8.5-10.1); Creatinine Clr Calc Pharmacy 86.8 ml/min; Est GFR (African American) 79.7 ml/min; Est GFR (Non-African American) 68.8 ml/min
--- NOTE | 2021-04-12 16:03 | Electrocardiogram Report ---
Test Reason : Blood Pressure : / mmHG Vent. Rate : 064 BPM Atrial Rate : 064 BPM P-R Int : 146 ms QRS Dur : 096 ms QT Int : 480 ms P-R-T Axes : 012 002 185 degrees QTc Int : 495 ms Normal sinus rhythm T wave abnormality, consider lateral ischemia Prolonged QT Abnormal ECG When compared with ECG of 07-APR-2021 14:52, Vent. rate has decreased BY [address] no longer depressed in Anterior leads T wave inversion less evident in Anterior leads Confirmed by Duane Shaw ([id number]) on 04/12/2021 4:02:30 PM Referred By: REFERRED SELF Confirmed By:Duane Shaw
[2021-04-12 20:55] LABS: BUN Creatinine Ratio 42.5 (10-20); Calcium 8.5 mg/dl (8.5-10.1); Creatinine Clr Calc Pharmacy 85.3 ml/min; Est GFR (African American) 78.1 ml/min; Est GFR (Non-African American) 67.4 ml/min; Potassium 3.5 mmol/L (3.5-5.1)
[2021-04-13] MEDS ORDERED: MIDAZOLAM HCL 1 MG/ML 2ML VIAL IV STA (02:09)
[2021-04-13] MEDS: metroNIDAZOLE 500 MG/100 ML BAG IV SCH ×3 (02:18→17:37)
[2021-04-13] MEDS: INSULIN ASPART 100 UNITS/ML 3 ML PEN SC SCH ×6 (03:48→23:46)
[2021-04-13] MEDS: hydrALAZINE HCL 20 MG/ML VIAL IV PRN (03:56)
[2021-04-13] MEDS: DEXTROSE 5% 1,000 ML IV SCH ×3 (05:17→23:20)
[2021-04-13] MEDS: oxyCODONE HCL SOLN 5 MG/5 ML UDC PO SCH ×4 (05:26→23:23)
[2021-04-13 05:33] LABS: Basophils # (auto) 0.01 K/uL (0-0.2); Basophils % (auto) 0.1 %; Eosinophils # (auto) 0.22 K/uL (0-0.5); Eosinophils % (auto) 1.9 %; Hematocrit (blood only) 32.9 % (42-52); Hemoglobin 9.8 g/dL (14.0-18.0); Immature Granulocytes # (auto) 0.11 K/uL (0.00-0.02); Immature Granulocytes % (auto) 0.9 %; Lymphocytes # (auto) 0.86 K/uL (1.2-3.4); Lymphocytes % (auto) 7.3 %; Mean Corpuscular Hemoglobin 29.5 pg (25-34); Mean Corpuscular Hgb Conc 29.8 g/dL (32-36); Mean Corpuscular Volume 99.1 fL (80-100); Monocytes # (auto) 0.78 K/uL (0.11-0.59); Monocytes % (auto) 6.6 %; Neutrophils % (auto) 83.2 %; Platelet Count 303 K/uL (130-400); RDW Coefficient of Variation 16.1 % (11.5-14.5); Red Blood Count 3.32 M/uL (4.7-6.1); White Blood Count 11.78 K/uL (4.8-10.8)
[2021-04-13 05:58] LABS: BUN Creatinine Ratio 39.4 (10-20); Calcium 8.5 mg/dl (8.5-10.1); Creatinine Clr Calc Pharmacy 85.6 ml/min; Est GFR (African American) 78.9 ml/min; Est GFR (Non-African American) 68.1 ml/min; Magnesium 2.7 mg/dl (1.8-2.4); Potassium 3.4 mmol/L (3.5-5.1)
[2021-04-13 06:02] LABS: Phosphorus 2.8 mg/dl (2.5-4.9)
[2021-04-13] MEDS: TUBE FEEDING WATER FLUSH GT SCH ×5 (06:17→23:22)
[2021-04-13] MEDS ORDERED: POTASSIUM CHLORIDE 20 MEQ/15 ML UDC PO STA (06:53)
[2021-04-13] MEDS: OLANZapine 10 MG TAB PO SCH (08:39)
[2021-04-13] MEDS: LANSOPRAZOLE 30 MG SOLTAB OG SCH ×2 (08:40→20:43)
[2021-04-13] MEDS: ENOXAPARIN INJ 120 MG/0.8 ML SYR SQ SCH (08:41)
[2021-04-13] MEDS: METOPROLOL TARTRATE 25 MG TAB PO SCH ×2 (08:41→20:43)
[2021-04-13] MEDS: amLODIPine BESYLATE 5 MG TAB PO SCH (08:42)
[2021-04-13] MEDS: levoFLOXacin/D5W 750 MG/150 ML BAG IV SCH (08:44)
--- NOTE | 2021-04-13 08:47 | XRay Report ---
XR chest 1V portable INDICATION: MN ^resp failure. TECHNIQUE: Single frontal radiograph of the chest was obtained. Comparison: Comparison is made to chest one view 04/12/2021 FINDINGS: Tracheostomy tube is noted. Enteric tube terminates within the stomach. The cardiomediastinal silhoue tte is stable. Redemonstration multifocal airspace opacities. Moderate right pleural effusion. No diane dence of pneumothorax. IMPRESSION: Stability of bilateral airspace opacities and right pleural effusion. ACT 112: Negative or not required by law. Electronically signed by: Fco Olivo M.D. 04/13/2021 8:46 AM
--- NOTE | 2021-04-13 10:07 | Palliative Care Consultation ---
Date of Consultation April 13, 2021 Assessment & Plan (1) Palliative care encounter: Mr. Awan is a 61 year old male who presented to the [facility] on March 20, 2021 with shortness of breath and hypoxia. A long summary of events include that he was intubated on March 27 after failing Hi-flow oxygen and BiPAP. He has received Dexamethasone and Tocilizumab for treatment. He was unable to be weaned and after discussion with family a tracheostomy was placed on April 05. Unfortunately, a lung abscess requiring detention 6 weeks of antibiotics, and pleural effusions were noted on CT scan on April 09, resulting in a thoracentesis being performed with negative cultures. An EEG was performed with some acute encephalopathy, but no seizure activity was noted. He has had some intermittent SVT requiring Amiodarone, Adenosine x3, synchronized cardioversion x5 with a return to NSR. Additionally he has experienced intermittent episodes of bradycardia and even pauses lasting approximately 10 seconds that is induced with turning positions and suctioning. Sedation has been weaned from Mr. Awan and neurologically he is responding to pain and opening his eyes with questionable reliability. He was retested for covid and was positive on April 07 and was still positive, requiring continued isolation. Additional PMH prior to this hospitalization includes: BPH/LUTS, SNHL, uvular hypertrophy, and gastric outlet obstruction. Palliative Medicine has been consulted for overall goals of care conversation. I visited with Mr. Awan in room 106 at his bedside. I pressed on the bottom of his right foot and he grimaced. I also touched his left arm and moved it causing grimacing as well. He did not open his eyes to verbal or painful stimuli, but, per nursing, he does have some periods where he does open his eyes, with unreliable interaction. He has been off of sedation for one day. He consistently has been tachypnic throughout the day and during my visit. In speaking with Brain, the patients nurse, he had a multiple second cardiac pause this morning, and in the middle of the night. He has also had intermittent fevers. As noted above he was retested for covid and was positive on April 07, requiring continued isolation. Ultimately, this patient has continued guarded and poor prognosis. I was able to talk with the patients , Halle at [phone] for approximately 50 minutes. She, herself, is still recovering from COVID-19. She expresses that she has felt overwhelmed and holding on to some 'glimmer of hope' that he comes home to her. She has felt that recently things have been moving in the right direction. We did discuss in detail his ventilator management, cardiac response and neurologic status, which, at least now he is waking at times. She stated that he has stated prior to being placed on the ventilator that he would not want to be on a ventilator, but felt it was a good idea to give it a chance. 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 They have two adult sons, Oskar (28) and Tobias (33). She said that Juancho likes to webb and fish in his spare time and if he would not be able to return to a life that included those things, plus his family, that he would not want to continue on living. She mentioned that he would want to 'live', not just be 'alive'. Juancho's mother lives about 2 hours from here and does not know much of what is going on with this hospitalization. Halle was understandably tearful throughout the conversation. We discussed cardioversion, defibrillation, ACLS drugs, etc. We also discussed escalation of care. I offered a window visit, but she declined at this time. I suggested a conference call so that she could have support and everyone could hear the same conversation at the same time. [facility] will [facility]30 or 10:00 that would include Halle, Oskar, Tobias, and Juancho's mother. For now, if patient decompensations overnight, OK for cardioversion, defibrillation, ACLS drugs, etc. confirmed she does NOT want him to have CPR. Continue Conditional code. Internet Sales Consultant, Hospitalist, and nursing aware. Palliative Medicine will follow. (2) AMS (altered mental status): (3) Weakness: (4) Lung abscess: (5) Pancreatitis: (6) Pneumonia due to COVID-19 virus: History of Present Illness Reason for Consultation: Goals of care Requesting Physician: Dr. Montes Attending Physician: Fco Llanos DO History of Present Illness Mr. Awan is a 61 year old male who presented to the [facility] on March 20, 2021 with shortness of breath and hypoxia. A long summary of events include that he was intubated on March 27 after failing Hi-flow oxygen and BiPAP. He has received Dexamethasone and Tocilizumab for treatment. He was unable to be weaned and after discussion with family a tracheostomy was placed on April 05. Unfortunately, a lung abscess requiring roasterman 6 weeks of antibiotics, and pleural effusions were noted on CT scan on April 09, resulting in a thoracentesis being performed with negative cultures. An EEG was performed with some acute encephalopathy, but no seizure activity was noted. He has had some intermittent SVT, intermittent episodes of bradycardia and even pauses lasting approximately 10 seconds that is induced with turning positions and suctioning. Sedation has been weaned from Mr. Awan and neurologically he is responding to pain and opening his eyes with questionable reliability. Additional PMH prior to this hospitalization includes: BPH/LUTS, SNHL, uvular hypertrophy, and gastric outlet obstruction. Palliative Medicine has been consulted for overall goals of care conversation. Please see A/P for further details. Thanks for involving Palliative Medicine with this individual. Allergies Allergy/AdvReac Type Severity Reaction Status Date / Time allopurinol AdvReac Unknown Elevated Verified 03/20/21 15:29 liver panels. morphine AdvReac Unknown slows Verified 03/20/21 15:29 heart rate Home Medications Medication Instructions Recorded Confirmed Type amlodipine 10 mg tablet 10 mg PO DAILY 06/22/20 03/20/21 History losartan 100 mg tablet 100 mg PO DAILY 06/22/20 03/20/21 History mupirocin 2 % topical ointment 1 applic TOPICAL UD 06/22/20 03/20/21 History prednisone 20 mg tablet 20 mg PO DAILY 06/22/20 04/06/21 History solifenacin 10 mg tablet (Vesicare) 10 mg PO DAILY #30 tab 10/13/20 03/20/21 Rx Patient History Medical History (Updated 04/13/21 @ 11:28 by Lenin Montes MD) Basal cell carcinoma COVID-19 Gout Hypertension Palliative care encounter Pulmonary abscess Testicular pain Tick bite Transaminitis Weakness Surgical History H/O vasectomy Hx of cholecystectomy Hx of colonoscopy Family History Grandmother (Paternal) Hypertension Grandfather (Paternal) Hypertension Father Bladder cancer Social History Smoking Status: Never smoker Hx Alcohol Use: No Hx Substance Use: No Preferred Language: Icelandic Communication Ability: Effective Electric Detector Operator Required: No Beliefs That Will Affect Care: None marital status: Current Living Situation: Spouse current occupational status: employed Other Information That Helps Us Care for You: No Feels Safe at Home: Yes Safety Concerns: Feels Safe At This Time Assistive Devices: Oxygen - Continuous Review of Systems Review of Systems: Berger System Assessment Scale: Pain AD: 08/02 SOB AD: 08/02 Tiredness AD: 08/02 Palliative Performance Scale: 20% Physical Exam Constitutional: + acute distress, + ill appearing and + mechanically ventilated Respiratory: + cough and + tachypneic Cardiovascular: Rate/Rhythm: regular rate and regular rhythm Extremities: + edema Gastrointestinal (Abdomen): Inspection/Auscultation: abdomen normal to inspection Percussion/Palpation: + abdomen tender Skin: + skin tightening and + ecchymosis Neurologic: + obtunded Results & Data ([facility]) Vital Signs (Past 12 Hours) Vital Signs Temp Pulse Resp BP Pulse Ox 04/13/21 09:11 37.9 C H 72 152/63 H 95 04/13/21 08:41 37.9 C H 81 134/69 93 04/13/21 08:11 37.8 C H 71 181/58 H 94 04/13/21 08:10 30 H 04/13/21 07:47 69 28 H 98 04/13/21 07:41 37.7 C H 70 152/57 H 92 04/13/21 07:11 37.8 C H 68 167/65 H 92 04/13/21 06:03 37.8 C H 68 91 04/13/21 05:47 37.7 C H 66 157/63 H 91 04/13/21 05:17 37.8 C H 72 132/65 91 04/13/21 04:47 37.8 C H 70 154/63 H 91 04/13/21 04:39 75 36 H 92 04/13/21 04:02 37.9 C H 83 179/66 H 94 04/13/21 03:48 37.9 C H 90 222/94 H 99 04/13/21 03:17 37.8 C H 67 165/70 H 92 04/13/21 02:47 37.8 C H 85 160/66 H 91 04/13/21 02:04 37.7 C H 73 183/63 H 91 04/13/21 01:47 37.7 C H 75 165/67 H 90 04/13/21 01:17 37.8 C H 68 159/65 H 90 04/13/21 00:47 37.8 C H 78 174/64 H 90 04/13/21 00:17 37.9 C H 87 174/65 H 91 04/13/21 00:00 65 04/12/21 23:47 38.0 C H 81 188/70 H 93 04/12/21 23:17 38.0 C H 75 183/76 H 93 04/12/21 23:00 65 36 H 94 04/12/21 22:47 37.9 C H 68 147/56 H 97 04/12/21 22:17 37.7 C H 68 159/66 H 95 PG Care Time/CCT Total # of Minutes Spent Total Time Spent with Patient: Total time spent is greater than 50% in coordination of care (as documented) at patient's floor/unit and/or counseling patient: 125 minutes with > 50% of that time spent assessing the patient, discussing goals of care with the patients , and collaborating with IDT Coding Level of Care Code 49973 Inpt Consult Level 3 Diagnoses Palliative care encounter Z51.5 AMS (altered mental status) R41.82 Weakness R53.1 Lung abscess J85.2 Pancreatitis K85.90 Pneumonia due to COVID-19 virus U07.1; J12.82 Time Spent (min) 125
[2021-04-13] MEDS ORDERED: ATROPINE SULFATE 0.1 MG/ML 10ML SYR IV PRN (10:30)
[2021-04-13] MEDS ORDERED: POTASSIUM CHLORIDE 20 MEQ/15 ML UDC PO ONE (10:45)
--- NOTE | 2021-04-13 11:30 | Critical Care Progress Note ---
Date of Service April 13, 2021 Assessment & Plan (1) Acute respiratory failure with hypoxia: Plan: Reason Critically Ill: 61-year-old male with past medical history of hypertension admitted to the hospital for COVID-19 pneumonia and acute hypoxic respiratory failure, intubated 03/27/2021 PLAN: NEURO: Acute encephalopathy. Brain imaging without acute findings. EEG without epileptiform activity. Olanzapine discontinued. All sedation discontinued. Oxycodone 5 mg every 6 hours ordered to help prevent opiate withdrawal. Will check ammonia level. RESPIRATORY: VDRF with acute hypoxic respiratory failure, secondary to multilobar COVID-19 pneumonia - COVID-19 PCR positive 03/16/2021, remains positive as of 04/07/21 - S/p Tocilizumab 03/21/2021 - Intubated 03/27/2021; tracheostomy performed 04/05/21 - Continue with lung protective ventilation -Continue pressure support as able. ARDS net high-dose steroid protocol - Dexamethasone 20mg x5 days, 10mg x5 days -- completed on 04/06 Pneumomediastinum--> resolved Lung abscess on CT 04/09 Right-sided pleural effusion -Status post thoracentesis 04/09; cultures negative thus far. CARDIOVASCULAR: Paroxysmal atrial fibrillation with RVR: Currently normal sinus rhythm. Continue metoprolol and amlodipine Episode of SVT evening of 04/07, 04/09: Resolved Intermittent episodes of bradycardia noted with suctioning. Pacer pads in place. EKG checked 04/12/2021. QTc interval 495 ms. ID: Lung abscess- will require 4 to 6 weeks of antibiotic therapy for the pulmonary abscess. - Sputum cultures with Group G Beta strep. Repeat sputum cultures negative thus far. Bacteremia - Repeat blood cultures 04/08 with 1 bottle growing coag negative staph: Suspect contaminant -Repeat blood cultures remain negative -MRI spine reviewed no evidence of epidural abscess - MRI cervical, thoracic, and lumbar w/ and w/o contrast ordered; results reviewed - CT chest, abd, pelvis w/ contrast ordered; results reviewed GI/Nutrition: Transaminitis -resolved Elevated lipase: Resolved Necrotizing pancreatitis Continue to feed. Heme: Anemia secondary to bone marrow suppression of disease process Endocrine: ICU hyperglycemia protocol --Prophylaxis VTE: Reduce Lovenox to 40 mg twice daily. GI: Lansoprazole Lines: Sue AJ Patient's Mrs. Emperatriz Neri [phone] Overall prognosis very guarded. Palliative care consult. CRITICAL CARE TIME - I have personally spent 38 minutes of critical care time in the direct management of this patient. This is a life/limb threatening event. This includes time spent evaluating patient, direct bedside care, chart review, placing orders, interpretation of diagnostic studies, discussion with consultants, patient, and family members, as well as other required patient management activities. This time is exclusive of all separately billable procedures, and teaching time and separate from and in addition to any other critical care service time. (2) Pneumonia due to COVID-19 virus: (3) Pulmonary abscess: (4) AMS (altered mental status): Admission and Anticipated Discharge Date Admission Date: March 20, 2021 Subjective Patient is currently off all sedation at this time. He had numerous events of bradycardia overnight related to general care such as suctioning and turning. He continues with low-grade temperatures of 100.2 F this morning. Unable to obtain review of systems. Patient does open his eyes to external stimuli. Review of Systems Review of Systems: Unobtainable due to cognitive status Physical Exam 2 Physical Exam: General: Glascow Coma Scale: Eyes: 4 spontaneous, Verbal 1T, Motor 1, Total 6T Skin: Warm, dry, Head: Nontraumatic. Ears, nose, mouth and throat: Tracheostomy in place. No obvious deformities. Cardiovascular: Normal peripheral perfusion Respiratory: Coarse sounds bilaterally Gastrointestinal: Non distended Musculoskeletal: No deformity, trace edema Results & Data Results & Data ([facility]) Vital Signs (Past 12 Hours) Vital Signs Temp Pulse Resp BP Pulse Ox 04/13/21 09:11 100.2 F H 72 152/63 H 95 04/13/21 08:41 100.2 F H 81 134/69 93 04/13/21 08:11 100.0 F H 71 181/58 H 94 04/13/21 08:10 30 H 04/13/21 07:47 69 28 H 98 04/13/21 07:41 99.9 F H 70 152/57 H 92 04/13/21 07:11 100.0 F H 68 167/65 H 92 04/13/21 06:03 100.0 F H 68 91 04/13/21 05:47 99.9 F H 66 157/63 H 91 04/13/21 05:17 100.0 F H 72 132/65 91 04/13/21 04:47 100.0 F H 70 154/63 H 91 04/13/21 04:39 75 36 H 92 04/13/21 04:02 100.2 F H 83 179/66 H 94 04/13/21 03:48 100.2 F H 90 222/94 H 99 04/13/21 03:17 100.0 F H 67 165/70 H 92 04/13/21 02:47 100.0 F H 85 160/66 H 91 04/13/21 02:04 99.9 F H 73 183/63 H 91 04/13/21 01:47 99.9 F H 75 165/67 H 90 04/13/21 01:17 100.0 F H 68 159/65 H 90 04/13/21 00:47 100.0 F H 78 174/64 H 90 04/13/21 00:17 100.2 F H 87 174/65 H 91 04/13/21 00:00 65 04/12/21 23:47 100.4 F H 81 188/70 H 93 vital signs, labs and imaging reviewed Coding Level of Care Code Critical Care 1st 30-74 mins Diagnoses Acute respiratory failure with hypoxia J96.01 Pneumonia due to COVID-19 virus U07.1; J12.82 Pulmonary abscess J85.2 AMS (altered mental status) R41.82 Time Spent (min) 38
[2021-04-13] MEDS ORDERED: VECURONIUM BROMIDE 10 MG VIAL IV STA ×2 (15:31→21:23)
--- NOTE | 2021-04-13 17:17 | Hospitalist Progress Note ---
Date of Service April 13, 2021 Assessment & Plan (1) Cerebral parenchymal hemorrhage: Plan: new finding on CT head on 04/13 small, 5mm area right side, also with trace subarachnoid hemorrhage left frontal lobe extensive conversation with Dr. Montes, patient's Halle and then spoke with Dr. Dixon, neurology at [facility] will repeat head CT in 6-12 hours, no need to transfer patient to tertiary care keep blood pressure below 140 systolic, stop Lovenox total of 45 minutes spent on conversations with Dr. Montes, Dr. Dixon, [facility] and two separate conversations with patient's Halle (2) Acute respiratory failure with hypoxia: Plan: due to COVID 19 pneumonia, bilateral infiltrates on CXR Was requiring prone positioning and BiPAP while awake, but then weaned down to wall high flow nasal cannula at 11-15 L on 03/23 However, on 03/24 worsened again was placed back on Vapotherm high flow nasal cannula On 03/25, requiring higher amounts of oxygen at 40 L and up to 80 % FiO2 to maintain pulse ox 90-91% On 03/26 switched to Ventilator HFNC at 60L, 100% FiO2 to keep POx>88%---> continued to decompensate on the morning of 03/27 and was intubated and proned He was not a candidate for ECMO Previously had pneumomediastinum which is now resolved Status post tocilizumab on 03/21 Completed a course of high-dose dexamethasone initially with 10 mg daily and then on 03/28, increased to 20 mg daily x5 days, then 10 mg daily x5 days Ventilator management as per biomedical technician status post tracheostomy on 04/05 currently on assist control, PEEP 8 and FiO2 45%, breathing in low to mid 30s off of all scheduled sedation Having trouble waking up and moving limbs-MRIs of C/T/L-spine all negative Fevers were also contributing to encephalopathy, central fever with bleeding? guarded prognosis, ICU managing family meeting scheduled for 04/14 with palliative care (3) AMS (altered mental status): Plan: ongoing issue, very difficult to manage etiologies include: ICU delirium, hypernatremia, fevers, infection, elevated ammonia today he opened his eyes to command, squeezed my right hand on command which is improvement ammonia is > 40, started on lactulose Na is coming down from 157 to 153 with free water and D5W fevers? infection is covered, could be central fevers with small parenchymal hemorrhage all sedation is off at this point, try to keep it off to promote proper mentation (4) Fever: Plan: Fevers started on 04/02, then resolved UA normal on 04/02 CXR with persistent infiltrates, sputum culture with group C beta strep blood cultures - no growth from 04/02, but blood cultures positive on 04/09 for coagulase-negative Staphylococcus in 1/2 sets-likely contaminant Blood cultures 04/10-no growth to date He then continued with persistent fevers from 04/05-04/10 acute sinusitis/large mastoid effusions seen on MRI brain possible right lung abscess on CT chest on 04/09--negative AFB, culture no growth to date right pleural effusion - thoracentesis, pleural culture negative Central and arterial lines have been removed and replaced with peripheral IVs Dopplers of lower extremities negative for DVT CT chest/abdomen/pelvis significant for lung abscess, necrotizing pancreatitis but lipase normal MRIs of cervical/thoracic/lumbar spine without epidural abscess or discitis MRSA swab remains negative - continue Levaquin and Flagyl, was started 04/07 echo is ordered and still pending (5) Bradycardia: Plan: with sinus terry initially while on BIPAP prior to intubation HR dropped to 20's on 04/12, required atropine, pacer pads on hold metoprolol, monitor closely (6) SVT (supraventricular tachycardia): Plan: Had SVT to the 200s on the evening of 04/07 with associated hypotension requiring esmolol, amiodarone, adenosine x3, synchronized cardioversion x5 Also had further atrial fibrillation on 04/07 and again on the night of 04/09 Now back in normal sinus rhythm was on metoprolol 25mg BID Continue to replace electrolytes as needed now with bradycardia requiring atropine on 04/12m metoprolol stopped (7) Pneumonia due to COVID-19 virus: Plan: As above still requiring mechanical ventilation, now status post tracheostomy (8) Transaminitis: Plan: Persists, likely secondary to COVID-19 infection, but could be medication side effect Improving (9) Hypotension: Plan: Has intermittently required vasopressors especially with SVT and rapid atrial fibrillation Now resolved, off vasopressors and now persistently hypertensive (10) Hypertension: Plan: Now with significant hypertension especially is weaning off sedation Has received IV Lasix and albumin intermittently Giving IV Diuril 500 mg on 04/11 Restarted amlodipine 10 mg daily on 04/11 IV hydralazine as needed (11) Hypokalemia: Plan: monitor daily, ICU replacement protocol (12) BPH loc w urin obs/LUTS: Plan: Rogers catheter in place (13) Lung abscess: Plan: As above Status post aspiration Follow cultures-no growth to date Continue levofloxacin, metronidazole, vancomycin, and caspofungin (14) Pancreatitis: Plan: Visualized on CT of the abdomen with suspected necrotizing pancreatitis Lipase normal, triglycerides improving Difficult to tell patient is having pain Continue tube feeds Plan: DVT prophylaxis: therapeutic Lovenox, SCDs Disposition: Continued stay in ICU, very guarded prognosis CODE STATUS: conditional code with no compressions Admission and Anticipated Discharge Date Admission Date: March 20, 2021 Subjective no cardiac issues today, he is on assist control with PEEP 8, FiO2 45%, breathing > 30 sedation is turned off Na coming down with D5W and free water via tube feeds still having low grade fevers, 37.7 ammonia was 40, started on Lactulose by ICU CT head this evening, right 5mm parenchymal bleed and trace SAH on left I spoke with Dr. Montes, he recommended speaking with the patient's Halle and finding out if she would want transfer I spoke with Halle for 20 minutes, updated her on recent events, CT head results, I then spoke with her sons on speaker phone she wanted me to call [place] spoke with transfer center at [facility] for 15 minutes and then spoke with Dr. Dixon, neurology for 10 minutes to discuss the case he recommended repeating CT head in 6-12 hours, if stable then no further scans recommended checking echo, recommended SBP < 140, stopping Lovenox I spoke with Dr. Montes and [place] in the ICU to let them know the plan I called Halle back, spoke for additional 10 minutes about the plan, no need to transfer we confirmed family meeting tomorrow with palliative care family interested in coming in to see him, understand it would be one at a time, wearing full PPE total time with patient today was 68 minutes Review of Systems Review of Systems: Unobtainable due to reduced consciousness (opens eyes on command, squeezes hand, denies pain) Physical Exam Constitutional: well developed, + obese and + mechanically ventilated (tracheostomy); no acute distress Neck: trachea midline, no thyromegaly + tracheostomy present Respiratory: symmetric chest movement (ventilated, supine position); no respiratory distress and no labored breathing Auscultation: no crackles, no rales, no rhonchi and no wheezes Cardiovascular: RRR, no murmur, no edema Gastrointestinal (Abdomen): normal bowel sounds, soft, nontender, no hepatosplenomegaly Musculoskeletal: no cyanosis or clubbing, extremities motor strength 5/5 Head/Neck/Chest: normocephalic, head atraumatic and neck supple Extremities: extremities normal to inspection; no cyanosis, no clubbing and no petechiae Skin: no rashes, warm and dry Neurologic: CN's II-XI intact bilaterally and awake (opens eyes to command); no focal motor deficits (squeezes hands appropriately) Speech / Cognition: + abnormal speech (has tracheostomy) Motor/Sensory: no tremor and no fasciculations Results & Data Results & Data ([facility]) Vital Signs (Past 12 Hours) Vital Signs Temp Pulse Resp BP Pulse Ox 04/13/21 15:25 83 34 H 94 04/13/21 12:11 37.7 C H 79 169/73 H 93 04/13/21 11:41 37.9 C H 91 H 176/85 H 93 04/13/21 11:11 38.0 C H 82 189/78 H 94 04/13/21 11:07 88 40 H 94 04/13/21 10:41 38.1 C H 68 110/49 L 97 04/13/21 10:11 38.0 C H 67 109/58 L 98 04/13/21 09:41 37.9 C H 78 142/58 H 97 04/13/21 09:11 37.9 C H 72 152/63 H 95 04/13/21 08:41 37.9 C H 81 134/69 93 04/13/21 08:11 37.8 C H 71 181/58 H 94 04/13/21 08:10 30 H 04/13/21 07:47 69 28 H 98 04/13/21 07:41 37.7 C H 70 152/57 H 92 04/13/21 07:11 37.8 C H 68 167/65 H 92 04/13/21 06:03 37.8 C H 68 91 04/13/21 05:47 37.7 C H 66 157/63 H 91 04/13/21 05:17 37.8 C H 72 132/65 91 Laboratory Results Laboratory Results - last 24 hr 04/12/21 04/12/21 04/12/21 20:20 20:27 23:22 WBC RBC Hgb Hct MCV MCH MCHC RDW Std Deviation RDW Coeff of Sujit Plt Count MPV Immature Gran % (Auto) Neut % (Auto) Lymph % (Auto) [place] % (Auto) Eos % (Auto) Baso % (Auto) Neut # (Auto) Lymph # (Auto) [place] # (Auto) Eos # (Auto) Baso # (Auto) Immature Gran # (Auto) Sodium 154 H Potassium 3.5 Chloride 124 H Carbon Dioxide 26 Anion Gap 4.0 BUN 50 H Creatinine 1.17 Est Cr Clr Drug Dosing 85.3 Est GFR ( Amer) 78.1 Est GFR (Non-Af Amer) 67.4 BUN/Creatinine Ratio 42.5 H Glucose 179 H POC Glucose 161 H 155 H Calcium 8.5 Ionized Calcium Phosphorus Magnesium Ammonia 04/13/21 04/13/21 04/13/21 03:45 05:04 05:04 WBC 11.78 H RBC 3.32 L Hgb 9.8 L Hct 32.9 L MCV 99.1 MCH 29.5 MCHC 29.8 L RDW Std Deviation 59.0 H RDW Coeff of Sujit 16.1 H Plt Count 303 MPV 11.0 H Immature Gran % (Auto) 0.9 Neut % (Auto) 83.2 Lymph % (Auto) 7.3 [place] % (Auto) 6.6 Eos % (Auto) 1.9 Baso % (Auto) 0.1 Neut # (Auto) 9.80 H Lymph # (Auto) 0.86 L [place] # (Auto) 0.78 H Eos # (Auto) 0.22 Baso # (Auto) 0.01 Immature Gran # (Auto) 0.11 H Sodium 153 H Potassium 3.4 L Chloride 123 H Carbon Dioxide 26 Anion Gap 4.0 BUN 46 H Creatinine 1.16 Est Cr Clr Drug Dosing 85.6 Est GFR ( Amer) 78.9 Est GFR (Non-Af Amer) 68.1 BUN/Creatinine Ratio 39.4 H Glucose 163 H POC Glucose 155 H Calcium 8.5 Ionized Calcium Phosphorus 2.8 D Magnesium 2.7 H Ammonia 04/13/21 04/13/21 04/13/21 05:04 08:56 11:46 WBC RBC Hgb Hct MCV MCH MCHC RDW Std Deviation RDW Coeff of Sujit Plt Count MPV Immature Gran % (Auto) Neut % (Auto) Lymph % (Auto) [place] % (Auto) Eos % (Auto) Baso % (Auto) Neut # (Auto) Lymph # (Auto) [place] # (Auto) Eos # (Auto) Baso # (Auto) Immature Gran # (Auto) Sodium Potassium Chloride Carbon Dioxide Anion Gap BUN Creatinine Est Cr Clr Drug Dosing Est GFR ( Amer) Est GFR (Non-Af Amer) BUN/Creatinine Ratio Glucose POC Glucose 127 H Calcium Ionized Calcium 1.17 Phosphorus Magnesium Ammonia 40.2 H 04/13/21 11:51 WBC RBC Hgb Hct MCV MCH MCHC RDW Std Deviation RDW Coeff of Sujit Plt Count MPV Immature Gran % (Auto) Neut % (Auto) Lymph % (Auto) [place] % (Auto) Eos % (Auto) Baso % (Auto) Neut # (Auto) Lymph # (Auto) [place] # (Auto) Eos # (Auto) Baso # (Auto) Immature Gran # (Auto) Sodium Potassium Chloride Carbon Dioxide Anion Gap BUN Creatinine Est Cr Clr Drug Dosing Est GFR ( Amer) Est GFR (Non-Af Amer) BUN/Creatinine Ratio Glucose POC Glucose 150 H Calcium Ionized Calcium Phosphorus Magnesium Ammonia Diagnostic Findings CT head IMPRESSION: 1. 5 mm acute intraparenchymal hematoma involves the periventricular right frontal parietal distribution, new from 04/02/2021. 2. Equivocal trace subarachnoid hemorrhage of the left frontal lobe near the vertex. 3. No midline shift. 4. Large bilateral mastoid effusions with fluid in the middle ear cavities has progressed from 04/02/2021. Medications Administered Current Inpatient Medications Acetaminophen (Acetaminophen 500 Mg Tab) 1,000 mg PO Q6H PRN PRN Reason: Fever or headache Stop: 05/05/21 12:50 Last Admin: 04/08/21 20:55 Dose: 1,000 mg Documented by: Albuterol (Albut/Ipratrop 3mg/0.5mg Neb 3 Ml Vial) 3 ml NEB Q4R PRN PRN Reason: Shortness of Breath/Wheezing Stop: 04/19/21 16:45 Amlodipine Besylate (Amlodipine Besylate 5 Mg Tab) 10 mg PO QAM MARCIA Stop: 04/29/21 08:59 Last Admin: 04/13/21 08:42 Dose: 10 mg Documented by: Atropine Sulfate (Atropine Sulfate 0.1 Mg/Ml 10ml Syr) 1 mg IV .KEEP AT BEDSIDE PRN PRN Reason: AT BEDSIDE PLEASE Dextrose (Dextrose 50% 50 Ml Syringe) 25 - 50 ml IV UD PRN; Protocol PRN Reason: Hypoglycemia Protocol Stop: 05/12/21 10:44 Enoxaparin Sodium (Enoxaparin Inj 40 Mg/0.4 Ml Syr) 40 mg SQ BID MARCIA Stop: 05/13/21 20:59 Enteral Nutritional Formula (Impact Liqd 1.0 Darrian 1,000 Ml Bag) 1,000 ml GT UD MARCIA; Protocol Stop: 05/10/21 07:59 Last Admin: 04/12/21 14:38 Dose: 1,000 ml Documented by: Glucagon (Glucagon For Inj 1 Mg Vial) 1 mg SQ UD PRN; Protocol PRN Reason: Hypoglycemia Protocol Stop: 05/12/21 10:44 Glucose (Glucose 40% Gel 15 Gm Tube) 15 - 30 gm PO UD PRN; Protocol PRN Reason: Hypoglycemia Protocol Stop: 05/12/21 10:44 Glucose (Glucose 10 Tabs/Tube) 4 - 8 tabs PO UD PRN; Protocol PRN Reason: Hypoglycemia Protocol Stop: 05/12/21 10:44 Hydralazine HCl (Hydralazine Hcl 20 Mg/Ml Vial) 10 mg IV Q6H PRN PRN Reason: hypertension Stop: 05/10/21 20:14 Last Admin: 04/13/21 03:56 Dose: 10 mg Documented by: Levofloxacin/Dextrose (Levaquin/D5w) 750 mg in 150 mls @ 100 mls/hr IV DAILY@1000 MARCIA; Protocol Stop: 04/17/21 10:44 Last Admin: 04/13/21 08:44 Dose: 150 mls/hr Documented by: Metronidazole (Flagyl) 500 mg in 100 mls @ 100 mls/hr IV Q8@0200,1000,1800 MARCIA Stop: 04/17/21 10:44 Last Infusion: 04/13/21 09:45 Dose: Infused Documented by: Dextrose (D5w) 1,000 mls @ 125 mls/hr IV .Q8H [facility] Stop: 05/12/21 08:29 Last Admin: 04/13/21 14:59 Dose: 125 mls/hr Documented by: Insulin Aspart (Insulin Aspart 100 Units/Ml 3 Ml Pen) 0 units SC Q4 MARCIA Stop: 05/07/21 07:59 Last Admin: 04/13/21 16:49 Dose: 4 units Documented by: Lactulose (Lactulose Syrup 20 Gm/30 Ml Udc) 10 gm PO BID [facility] Stop: 05/13/21 20:59 Lansoprazole (Lansoprazole 30 Mg Soltab) 30 mg OG BID [facility] Stop: 04/27/21 20:59 Last Admin: 04/13/21 08:40 Dose: 30 mg Documented by: Metoprolol Tartrate (Metoprolol Tartrate 25 Mg Tab) 12.5 mg PO BID [facility] Stop: 05/13/21 20:59 Miscellaneous (Carbohydrates For Hypoglycemia ) 15 - 30 gm PO UD PRN PRN Reason: Hypoglycemia Treatment Stop: 05/12/21 10:44 Multi-Ingredient Cream (Artificial Tears Op Oint 3.5 Gm Tube) 1 appln OP Q4 PRN PRN Reason: DRY EYES Stop: 04/26/21 08:59 Oxycodone HCl (Oxycodone Hcl Soln 5 Mg/5 Ml Udc) 5 mg PO Q6H [facility] Stop: 04/27/21 11:59 Last Admin: 04/13/21 11:44 Dose: 5 mg Documented by: Sennosides (Sennosides 8.8 Mg/5 Ml Udc) 17.6 mg PO BID PRN PRN Reason: CONSTIPATION Stop: 05/06/21 20:59 Sterile Water (Tube Feeding Water Flush) 250 ml GT Q4H [facility] Stop: 05/13/21 10:29 Last Admin: 04/13/21 14:59 Dose: 250 ml Documented by: PG Care Time/CCT Total # of Minutes Spent Total Time Spent: 68 Total Time Spent with Patient: Total time spent is greater than 50% in coordination of care (as documented) at patient's floor/unit and/or counseling patient: examination of patient, reviewed chart and labs, spoke with Dr. Montes and ICU staff two conversations with patient's Halle phone call with [facility] center and Dr. Dixon, neurology at [place] Prolonged Care Time Prolonged Care Time: Yes Total Prolonged Care Time: 38 68 Coding Level of Care Code 14928 Subseq Hosp Care Lvl 3 Diagnoses Acute respiratory failure with hypoxia J96.01 Fever R50.9 Bradycardia R00.1 SVT (supraventricular tachycardia) I47.1 Pneumonia due to COVID-19 virus U07.1; J12.82 Transaminitis R74.01 Hypotension I95.9 Hypertension I10 Hypokalemia E87.6 BPH loc w urin obs/LUTS N40.1 Lung abscess J85.2 Pancreatitis K85.90 Cerebral parenchymal hemorrhage I61.9 AMS (altered mental status) R41.82 Additional Codes Prolonged Care Time - Prolonged Care Time: Yes ([id number])
--- NOTE | 2021-04-13 17:19 | CT Scan Report ---
CT head/brain wo con CLINICAL HISTORY: 61 years-old Male with encephalopathy. Acutely altered mental status TECHNIQUE: Multiple axial CT images of the head were obtained without contrast. A dose lowering tech nique was utilized adhering to the principles of ALARA. CT DOSE: 2460.05 mGycm COMPARISON: Head CT 04/02/2021. FINDINGS: Motion degraded exam. The study was then repeated. There is a 5 mm hemorrhagic focus within the right frontoparietal wilde radiata periventricular distribution on image 18 series 4 which is new from [place] [employer] [facility]. Equivocal trace subarachnoid hemorrhage of the left frontal lobe on image 25 series 2. Ther e is no midline shift, intracranial mass, hydrocephalus, territorial ischemia or abnormal extra-axial collection. The calvarium is intact. Large bilateral mastoid effusions with fluid within the middle ear cavities has progressed from comparison. Small air-fluid levels within the maxillary sinuses. Unremarkable so ft tissues. IMPRESSION: 1. 5 mm acute intraparenchymal hematoma involves the periventricular right frontal parietal distribut ion, new from 04/02/2021. 2. Equivocal trace subarachnoid hemorrhage of the left frontal lobe near the vertex. 3. No midline shift. 4. Large bilateral mastoid effusions with fluid in the middle ear cavities has progressed from 04/02/20 21. Findings were discussed with Dr. Llanos on 04/13/2021 at 5:15 PM. ACT 112: Negative or not required by law. The above report was generated using voice recognition software. It may contain grammatical, syntax o r spelling errors. Electronically signed by: Arpit Dutton M.D. 04/13/2021 5:17 PM
[2021-04-13] MEDS: IMPACT LIQD 1.0 CAL 1,000 ML BAG GT SCH (17:35)
[2021-04-13] MEDS ORDERED: STAT IV Infusion **Titration per Protocol STA (17:43)
[2021-04-13] MEDS: niCARdipine 25 MG in SODIUM CHLORIDE 0.9% 240 ML IV SCH ×2 (18:09→22:22)
[2021-04-13 18:46] LABS: Calcium 8.2 mg/dl (8.5-10.1); Creatinine Clr Calc Pharmacy 90.3 ml/min; Est GFR (African American) 84.1 ml/min; Est GFR (Non-African American) 72.6 ml/min
[2021-04-13] MEDS: LACTULOSE SYRUP 20 GM/30 ML UDC PO SCH (20:42)
[2021-04-13] MEDS ORDERED: ENOXAPARIN INJ 40 MG/0.4 ML SYR SQ SCH (21:00)
[2021-04-13] MEDS ORDERED: MIDAZOLAM HCL 5 MG/ML 1 ML VIAL IV STA (21:24)
[2021-04-13] MEDS ORDERED: fentaNYL citrate 100 MCG/2 ML VIAL ONE (21:41)
[2021-04-13] MEDS ORDERED: fentaNYL citrate 100 MCG/2 ML VIAL IV STA (21:41)
[2021-04-14] LABS: INR 1.1 (0.9-1.1); Partial Thromboplastin Time 26.8 Seconds (21.0-31.0); Prothrombin Time 10.9 Seconds (9.0-12.0)
[2021-04-14] MEDS: metroNIDAZOLE 500 MG/100 ML BAG IV SCH ×3 (01:44→16:39)
[2021-04-14] MEDS: hydrALAZINE HCL 20 MG/ML VIAL IV PRN (02:17)
[2021-04-14] MEDS: INSULIN ASPART 100 UNITS/ML 3 ML PEN SC SCH ×6 (02:34→20:02)
[2021-04-14] MEDS: TUBE FEEDING WATER FLUSH GT SCH ×6 (02:35→21:25)
[2021-04-14] MEDS: MIDAZOLAM HCL 1 MG/ML 2ML VIAL IV PRN ×2 (02:46→15:42)
[2021-04-14 04:41] LABS: iSTAT Allen Test Pass; iSTAT Art Bld Gas pCO2 Correct 50 mmHg (35-46); iSTAT Art Bld Gas pH Corrected 7.337 (7.35-7.45); iSTAT Arterial Blood Gas HCO3 27 meg/L (19-24); iSTAT Arterial Blood Gas pCO2 50 mmHg (35-46); iSTAT Arterial Blood Gas pH 7.34 (7.35-7.45); iSTAT Arterial Blood Gas pO2 44 mmHg (80-95); iSTAT Arterial Blood Gas pO2 C 44; iSTAT Carbon Dioxide 28 mmol/L (24-31); iSTAT FiO2 50 %; iSTAT Hematocrit 26 % (42-52); iSTAT Hemoglobin 8.8 g/dl (14.0-18.0); iSTAT Potassium 3.7 mmol/L (3.3-5.0); iSTAT Site R Radial; iSTAT Sodium 150 mmol/L (135-144)
[2021-04-14 04:42] LABS: iSTAT Allen Test Pass; iSTAT Art Bld Gas pCO2 Correct 43 mmHg (35-46); iSTAT Art Bld Gas pH Corrected 7.382 (7.35-7.45); iSTAT Arterial Blood Gas HCO3 26 meg/L (19-24); iSTAT Arterial Blood Gas pCO2 43 mmHg (35-46); iSTAT Arterial Blood Gas pH 7.39 (7.35-7.45); iSTAT Arterial Blood Gas pO2 73 mmHg (80-95); iSTAT Arterial Blood Gas pO2 C 74; iSTAT Carbon Dioxide 27 mmol/L (24-31); iSTAT FiO2 50 %; iSTAT Hematocrit 25 % (42-52); iSTAT Hemoglobin 8.5 g/dl (14.0-18.0); iSTAT Potassium 3.7 mmol/L (3.3-5.0); iSTAT Site L Radial; iSTAT Sodium 150 mmol/L (135-144)
[2021-04-14 06:05] LABS: Basophils # (auto) 0.01 K/uL (0-0.2); Basophils % (auto) 0.1 %; Hematocrit (blood only) 28.7 % (42-52); Hemoglobin 8.6 g/dL (14.0-18.0); Immature Granulocytes # (auto) 0.16 K/uL (0.00-0.02); Immature Granulocytes % (auto) 1.6 %; Lymphocytes # (auto) 0.46 K/uL (1.2-3.4); Lymphocytes % (auto) 4.5 %; Mean Corpuscular Hemoglobin 29.6 pg (25-34); Mean Corpuscular Volume 98.6 fL (80-100); Mean Platelet Volume 10.6 fL (7.4-10.4); Monocytes % (auto) 6.9 %; Neutrophils # (auto) 8.48 K/uL (1.4-6.5); Neutrophils % (auto) 83.9 %; Platelet Count 254 K/uL (130-400); RDW Coefficient of Variation 16.1 % (11.5-14.5); RDW Standard Deviation 58.4 fL (36.4-46.3); Red Blood Count 2.91 M/uL (4.7-6.1); White Blood Count 10.11 K/uL (4.8-10.8)
[2021-04-14 06:12] LABS: INR 1.1 (0.9-1.1); Partial Thromboplastin Time 25.6 Seconds (21.0-31.0)
[2021-04-14] MEDS: oxyCODONE HCL SOLN 5 MG/5 ML UDC PO SCH (06:19)
[2021-04-14 06:36] LABS: BUN Creatinine Ratio 39.8 (10-20); Calcium 6.5 mg/dl (8.5-10.1); Creatinine Clr Calc Pharmacy 112.9 ml/min; Est GFR (African American) 108.2 ml/min; Est GFR (Non-African American) 93.4 ml/min; Phosphorus 2.5 mg/dl (2.5-4.9); Potassium 3.3 mmol/L (3.5-5.1)
[2021-04-14] MEDS ORDERED: POTASSIUM CHLORIDE 20 MEQ/15 ML UDC PO STA (06:51)
[2021-04-14] MEDS: DEXTROSE 5% 1,000 ML IV SCH ×2 (08:12→21:21)
[2021-04-14] MEDS: LACTULOSE SYRUP 20 GM/30 ML UDC PO SCH ×2 (08:13→21:23)
[2021-04-14] MEDS: LANSOPRAZOLE 30 MG SOLTAB OG SCH ×2 (08:13→21:24)
[2021-04-14] MEDS: amLODIPine BESYLATE 5 MG TAB PO SCH (08:15)
[2021-04-14] MEDS: METOPROLOL TARTRATE 25 MG TAB PO SCH ×2 (08:16→21:24)
[2021-04-14] MEDS: POTASSIUM CHLORIDE / WTR 10 MEQ/100 ML PLCT IV SCH ×2 (08:19→09:52)
--- NOTE | 2021-04-14 08:25 | CT Scan Report ---
CT head/brain wo con Clinical Indication: [place] ^9:30 ^[facility] eval. Technique: Contiguous axial CT images of the head were acquired from the base of the skull to the eliane db without intravenous contrast administration. Images were viewed in brain, subdural and bone windo ws. Automated dose lowering techniques and/or adjustment according to patient size were utilized for this exam. Comparison: None available at the time of this dictation. Findings: Again noted is a tiny, approximately 5 mm, focus of intraparenchymal hemorrhage in the right frontopa rietal white matter. Areas of decreased attenuation are present in the periventricular and subcortica l white matter bilaterally consistent with small vessel ischemic disease. Generalized cerebral volume loss with commensurate enlargement of the ventricles, sulci, and cisterns is also present. Atheroscl erotic calcifications are present in the intracranial segments of the internal carotid arteries. Severe bilateral mastoid effusions are seen. Mild soft tissue thickening is seen in the ethmoid and s phenoid sinuses. The orbits appear normal. There are no acute fractures of the calvaria or scalp swe lling. Impression: Redemonstration of punctate acute hemorrhage in the right frontoparietal white matter. ACT 112: Negative or not required by law. Electronically signed by: Fco Olivo M.D. 04/14/2021 8:23 AM
[2021-04-14] MEDS: levoFLOXacin/D5W 750 MG/150 ML BAG IV SCH (09:53)
[2021-04-14] MEDS ORDERED: CHLOROTHIAZIDE SODIUM 500 MG in DEXTROSE 5% 50 ML IV ONE (10:00)
[2021-04-14] MEDS ORDERED: CALCIUM GLUCONATE 10% 1,000 MG in SODIUM CHLORIDE 0.9% 50 ML IV ONE (10:00)
--- NOTE | 2021-04-14 10:19 | Neurology Consultation ---
Date of Consultation April 14, 2021 Assessment & Plan (1) Cerebral parenchymal hemorrhage: (2) Encephalopathy: Punctate acute right frontoparietal white matter hemorrhage occurring in the context of COVID-19 pneumonia/hypoxic respiratory failure. The associated trace subarachnoid hemorrhage of the left frontal lobe near the vertex was not definitively seen on follow-up head CT. Patient has been modestly hypertensive although the extent to which his hypertension may have contributed to this small hemorrhage is not entirely clear. He does not display any obvious focal neurological signs that would localize to this tiny right frontoparietal white matter hemorrhage. He does have a moderate encephalopathy. As described in the examination, he is lethargic to obtunded but will follow simple commands and appears to move all 4 limbs symmetrically, but to a limited degree in the context of significant generalized weakness occurring in the context of prolonged critical illness. He does not display any abnormal movements such as myoclonus and has not exhibited any obvious seizure activity. Would recommend a noncontrast enhanced MRI and MRA of the brain. Would also recommend an echocardiogram. Patient does not require another EEG at this time. Continue management of hypertension. Continue supportive medical care including medical factors that may also contribute to his encephalopathy including hypernatremia, hyperammonemia, transaminitis, pancreatitis. History of Present Illness Reason for Consultation: Intraparenchymal hemorrhage, encephalopathy Requesting Physician: ANI Meadows Attending Physician: Fco Llanos DO History of Present Illness The patient is a 61-year old male who was admitted to the [facility] on March 20 with worsening shortness of breath in the context of COVID-19 infection that have been diagnosed 11 days prior. He had not been vaccinated for COVID-19. Past medical history notable for hypertension and morbid obesity. Unfortunately, his clinical status deteriorated due to worsening pneumonia and acute hypoxic respiratory failure requiring intubation/placement on the ventilator on March 27. He has been treated with antibiotics as well as corticosteroids and tocilizumab. He did have a brain MRI completed on April 07 that was negative for hemorrhage or acute process. He had MRI of the spinal column, cervical, thoracic, and lumbar spine on April 09 that was negative for abscess, discitis, or osteomyelitis. No evidence of spinal cord demyelination noted. An EEG was completed April 10 that revealed severe generalized slowing suggestive of encephalopathy, no epileptiform abnormalities. A CT of the head was completed on April 13 for further assessment of acute worsening in his mental status. The study did reveal a 5 mm acute intraparenchymal hematoma within the periventricular right frontoparietal area that was not seen on previous imaging. There is an associated trace amount of subarachnoid hemorrhage as well within the left frontal lobe near the vertex. No associated edema or shift identified. A follow-up CT of the head completed later that day revealed stability of the punctate area of acute hemorrhage within the right frontoparietal white matter. I did review the images as well as the radiologist's interpretation of these tests. The patient remains on the ventilator this morning. Sedative medications have been discontinued. He is lethargic to obtunded but will open eyes to command, tracks the examiner, follows simple commands. Generally nonagitated. Unable to provide any details pertaining to history of present illness. See examination below for further details. Allergies Allergy/AdvReac Type Severity Reaction Status Date / Time allopurinol AdvReac Unknown Elevated Verified 03/20/21 15:29 liver panels. morphine AdvReac Unknown slows Verified 03/20/21 15:29 heart rate Home Medications Medication Instructions Recorded Confirmed Type amlodipine 10 mg tablet 10 mg PO DAILY 06/22/20 03/20/21 History losartan 100 mg tablet 100 mg PO DAILY 06/22/20 03/20/21 History mupirocin 2 % topical ointment 1 applic TOPICAL UD 06/22/20 03/20/21 History prednisone 20 mg tablet 20 mg PO DAILY 06/22/20 04/06/21 History solifenacin 10 mg tablet (Vesicare) 10 mg PO DAILY #30 tab 10/13/20 03/20/21 Rx Patient History Medical History (Updated 04/14/21 @ 10:05 by Rebel Marina MD) Basal cell carcinoma COVID-19 Gout Hypertension Palliative care encounter Pulmonary abscess Testicular pain Tick bite Transaminitis Weakness Surgical History H/O vasectomy Hx of cholecystectomy Hx of colonoscopy Family History Grandmother (Paternal) Hypertension Grandfather (Paternal) Hypertension Father Bladder cancer Social History Smoking Status: Never smoker Hx Alcohol Use: No Hx Substance Use: No Preferred Language: Martiniquais Communication Ability: Effective Mail Clerk Required: No Beliefs That Will Affect Care: None marital status: Current Living Situation: Spouse current occupational status: employed Other Information That Helps Us Care for You: No Feels Safe at Home: Yes Safety Concerns: Feels Safe At This Time Assistive Devices: Oxygen - Continuous Review of Systems Review of Systems: Unobtainable due to reduced consciousness Exam (Neuro) Physical Exam: Limited neurological examination this critically ill patient on the ventilator. As above, he does open his eyes to commands and will track the examiner. He does not exhibit an obvious gaze preference. I have movements appear to be intact. There is no nystagmus. Pupils measure 3 to 4 mm, are equal, round, and reactive to light. Blink reflex intact. He does follow simple commands. He will open and close his eyes to command. He will grasp with both hands equally. He wiggles his toes symmetrically. He does not exhibit any gross lateralizing signs. No posturing. Does not exhibit an obvious hemiparesis. Patient is able to withdraw the limbs to a limited degree in the context of significant generalized weakness. No abnormal movements o bserved. Deep tendon reflexes are reduced throughout. Results & Data ([facility]) Vital Signs (Past 12 Hours) Vital Signs Temp Pulse Resp BP Pulse Ox 04/14/21 07:43 57 L 40 H 91 04/14/21 04:33 64 36 H 92 04/14/21 01:41 37.5 C 63 160/56 H 93 04/14/21 01:11 37.3 C 60 139/64 95 04/14/21 00:41 37.2 C 63 135/69 94 04/14/21 00:11 37.2 C 72 147/56 H 94 04/14/21 00:00 63 04/13/21 23:41 69 147/70 H 94 04/13/21 23:08 66 158/66 H 93 04/13/21 23:00 75 37 H 93 04/13/21 22:30 60 94 Laboratory Results WBC 10.11, hemoglobin 8.6, hematocrit 28.7, platelet count 254, sodium 152, pot assium 3.3, BUN 35, creatinine 0.88, glucose 153, calcium 6.5, magnesium 2.0, ammonia 40.2 Diagnostic Findings MRI of the brain, CT of the head, and MRI of the spinal column are as described in the history of present illness. I did review the images as well as the radiologist's interpretation of these tests. EEG is as described in the history of present illness. Electrocardiogram reveals a normal sinus rhythm Coding Level of Care Code 23304 Office/OBS Consult Lvl 5 Diagnoses Cerebral parenchymal hemorrhage I61.9 Encephalopathy G93.40
--- NOTE | 2021-04-14 11:03 | Critical Care Progress Note ---
Date of Service April 14, 2021 Assessment & Plan (1) Acute respiratory failure with hypoxia: Plan: Reason Critically Ill: 61-year-old male with past medical history of hypertension admitted to the hospital for COVID-19 pneumonia and acute hypoxic respiratory failure, intubated 03/27/2021 PLAN: NEURO: Acute encephalopathy. Brain imaging without acute findings. EEG without epileptiform activity. We will discontinue all sedation at this time. Ammonia level mildly elevated. Lactulose added 04/13/2021. CT head obtained yesterday demonstrated a 5 mm focus of intraparenchymal hemorrhage in the right frontal parietal white matter. Trace subarachnoid hemorrhage was seen as well. This is likely secondary to the patient being on high doses of Lovenox and intermittent hypertension. There is been stability in the head bleed based on imaging yesterday. We will repeat his CT head this morning. Neurology consulted. We spoke with [facility] yesterday and their neurology team did not feel that transfer was necessary at this point and medical management of the hemorrhage can be pursued. We will hold anticoagulation and maintain systolic blood pressures under 140 with the use of nicardipine. RESPIRATORY: VDRF with acute hypoxic respiratory failure, secondary to multilobar COVID-19 pneumonia - COVID-19 PCR positive 03/16/2021, remains positive as of 04/07/21 - S/p Tocilizumab 03/21/2021 - Intubated 03/27/2021; tracheostomy performed 04/05/21 - Continue with lung protective ventilation -Continue pressure support as able. ARDS net high-dose steroid protocol - Dexamethasone 20mg x5 days, 10mg x5 days -- completed on 04/06 Pneumomediastinum--> resolved Lung abscess on CT 04/09 Right-sided pleural effusion -Status post thoracentesis 04/09; cultures negative thus far. CARDIOVASCULAR: Paroxysmal atrial fibrillation with RVR: Currently normal sinus rhythm. Continue metoprolol and amlodipine Episode of SVT evening of 04/07, 04/09: Resolved Intermittent episodes of bradycardia noted with suctioning. Pacer pads in place. EKG checked 04/12/2021. QTc interval 495 ms. Echocardiogram ordered to evaluate for embolic phenomenon. ID: Lung abscess- will require 4 to 6 weeks of antibiotic therapy for the pulmonary abscess. - Sputum cultures with Group G Beta strep. Repeat sputum cultures negative thus far. Bacteremia - Repeat blood cultures 04/08 with 1 bottle growing coag negative staph: Suspect contaminant -Repeat blood cultures remain negative -MRI spine reviewed no evidence of epidural abscess - MRI cervical, thoracic, and lumbar w/ and w/o contrast ordered; results reviewed - CT chest, abd, pelvis w/ contrast ordered; results reviewed GI/Nutrition: Transaminitis -resolved Elevated lipase: Resolved Necrotizing pancreatitis Continue tube feeds. Heme: Anemia secondary to bone marrow suppression of disease process Endocrine: ICU hyperglycemia protocol --Prophylaxis VTE: Lovenox on hold. Continue SCDs. GI: Lansoprazole Lines: MADAI, Rogers Patient's Mrs. Emperatriz Neri [phone] Overall prognosis very guarded. Palliative care consult. CRITICAL CARE TIME - I have personally spent 35 minutes of critical care time in the direct management of this patient. This is a life/limb threatening event. This includes time spent evaluating patient, direct bedside care, chart review, placing orders, interpretation of diagnostic studies, discussion with consultants, patient, and family members, as well as other required patient management activities. This time is exclusive of all separately billable procedures, and teaching time and separate from and in addition to any other critical care service time. (2) Pneumonia due to COVID-19 virus: (3) Pulmonary abscess: (4) AMS (altered mental status): (5) Cerebral parenchymal hemorrhage: (6) Encephalopathy: Admission and Anticipated Discharge Date Admission Date: March 20, 2021 Subjective Patient seen and examined this morning. Follows intermittent commands. Tachypneic. Off all sedation at this present time. Overnight he underwent a CT of his head and stable punctate acute hemorrhage in the right frontoparietal white matter region was noted. Review of Systems Review of Systems: Unobtainable due to cognitive status and Unobtainable due to endotracheal tube Physical Exam 2 Physical Exam: General: Glascow Coma Scale: Eyes: 4 spontaneous, Verbal 1T, Motor 1, Total 6T Skin: Warm, dry, Head: Nontraumatic. Ears, nose, mouth and throat: Tracheostomy in place. No obvious deformities. Cardiovascular: Normal peripheral perfusion Respiratory: Coarse sounds bilaterally. Tachypneic. Gastrointestinal: Non distended. Soft. Musculoskeletal: No deformity, trace edema Results & Data Results & Data ([facility]) Vital Signs (Past 12 Hours) Vital Signs Temp Pulse Resp BP Pulse Ox 04/14/21 07:43 57 L 40 H 91 04/14/21 04:33 64 36 H 92 04/14/21 01:41 99.5 F 63 160/56 H 93 04/14/21 01:11 99.1 F 60 139/64 95 04/14/21 00:41 99.0 F 63 135/69 94 04/14/21 00:11 99.0 F 72 147/56 H 94 04/14/21 00:00 63 04/13/21 23:41 69 147/70 H 94 04/13/21 23:08 66 158/66 H 93 04/13/21 23:00 75 37 H 93 Vital signs, labs and imaging personally reviewed Coding Level of Care Code 04264 Subseq Hosp Care Lvl 3 Diagnoses Acute respiratory failure with hypoxia J96.01 Pneumonia due to COVID-19 virus U07.1; J12.82 Pulmonary abscess J85.2 AMS (altered mental status) R41.82 Cerebral parenchymal hemorrhage I61.9 Encephalopathy G93.40 Time Spent (min) 35
--- NOTE | 2021-04-14 11:06 | Palliative Care Progress Note ---
Date of Service April 14, 2021 Assessment & Plan (1) Palliative care encounter: Plan: Lengthy conversation held with multiple family members via telephone. 90 minute conversation held with the following family members: his , Halle; two sons Oskar and Tobias; his mother Arline, and cousin Agnieszka. In depth conversation held regarding his current status, which has seems to have declined today with more tachypnea etc. We discussed his medical condition in detail with all of the moving parts. He has been off of all sedation,including PRN medication for a few days. He did receive one dose of Versed overnight. Currently, he is listed as a conditional code with NO CPR, but OK for ACLS medications, cardioversion and defibrillation. I explained in detail the difference between cardioversion and defibrillation (pulse vs pulseless), along with medication use with both options. They clearly were not ready to move forward with transition to a compassionate withdraw in his care; so I did express the importance of setting a range of time to reevaluate and revisit goals. We discussed sedation, encephalopathy, and pain management and how they are all intertwined with Juancho's condition. At this time, continue aggressive measures. They plan to discuss internally as a family prior to making any changes with his code status, with them understanding that if he would sustain a pulseless arrest, that is is unlikely he would survive with solely defibrillation and that performing CPR on him with all of the events leading up to today is unlikely that he would survive, let along return to a meaningful recovery state. Palliative Medicine will follow. (2) AMS (altered mental status): (3) Weakness: (4) Lung abscess: (5) Pancreatitis: (6) Pneumonia due to COVID-19 virus: Admission and Anticipated Discharge Date Admission Date: March 20, 2021 Subjective Pt remains trach/vented. CT yesterday revealed 5 mm hemorrhage in right parietel/frontal lobe. pt remains tachypnic in the high 30's to 40's increasingly uncomfortable by assessment with grimacing. Received 1 dose of Versed overnight. Still lethargic, but opens his eyes. not reliable for interaction. Lengthy family meeting today. See A/P for details. Review of Systems Review of Systems: Fontana System Assessment Scale: Pain AD: 13 SOB AD: 1/3 Tiredness AD: 1/3 Palliative Performance Scale: 20% Physical Exam Constitutional: + acute distress, + ill appearing and + mechanically ventilated Respiratory: + cough and + tachypneic Cardiovascular: Rate/Rhythm: regular rate and regular rhythm Extremities: + edema Gastrointestinal (Abdomen): Inspection/Auscultation: abdomen normal to inspection Percussion/Palpation: + abdomen tender Skin: + skin tightening and + ecchymosis Neurologic: + obtunded Results & Data ([facility]) Vital Signs (Past 12 Hours) Vital Signs Temp Pulse Resp BP Pulse Ox 04/14/21 07:43 57 L 40 H 91 04/14/21 04:33 64 36 H 92 04/14/21 01:41 37.5 C 63 160/56 H 93 04/14/21 01:11 37.3 C 60 139/64 95 04/14/21 00:41 37.2 C 63 135/69 94 04/14/21 00:11 37.2 C 72 147/56 H 94 04/14/21 00:00 63 04/13/21 23:41 69 147/70 H 94 04/13/21 23:08 66 158/66 H 93 PG Care Time/CCT Total # of Minutes Spent Total Time Spent with Patient: Total time spent is greater than 50% in coordination of care (as documented) at patient's floor/unit and/or counseling patient: 90 minutes with > 50% of that time spent assessing the patient, holding a lengthy goals of care conversation with multiple family members, and collaborating with IDT Coding Level of Care Code 43299 Subseq Hosp Care Lvl 3 Diagnoses Palliative care encounter Z51.5 AMS (altered mental status) R41.82 Weakness R53.1 Lung abscess J85.2 Pancreatitis K85.90 Pneumonia due to COVID-19 virus U07.1; J12.82 Time Spent (min) 90
--- NOTE | 2021-04-14 11:17 | CT Scan Report ---
CT head/brain wo con CLINICAL HISTORY: 61 years-old Male with IPH. Follow-up study in a patient with intraparenchymal hem orrhage. TECHNIQUE: Multiple axial CT images of the head were obtained without contrast. A dose lowering tech nique was utilized adhering to the principles of ALARA. CT DOSE: 1035.81 mGycm COMPARISON: Head CT 04/13/2021 at 10:09 PM FINDINGS: 5 mm intraparenchymal hemorrhagic focus of the periventricular right temporal parietal distribution o n image 20 series 2 is unchanged. No definite additional acute intraparenchymal hemorrhage identified . The study is motion degraded. Age-related involutional changes with chronic microvascular ischemic disease. There is no midline shift, intracranial mass, hydrocephalus, territorial ischemia or abnorma l extra-axial collection. Ill-defined hypodensity of the bilateral cerebellar hemispheres is favored to be artifactual. The calvarium is intact. Large mastoid effusions with fluid in the middle ear cavities redemonstrate d. Minimal mucosal thickening of the maxillary and ethmoid sinuses redemonstrated. Unremarkable soft tissues and orbits. IMPRESSION: Unchanged 5 mm hemorrhagic focus of the periventricular right frontal parietal lobe. ACT 112: Negative or not required by law. The above report was generated using voice recognition software. It may contain grammatical, syntax o r spelling errors. Electronically signed by: Arpit Dutton M.D. 04/14/2021 11:16 AM
--- NOTE | 2021-04-14 13:59 | Hospitalist Progress Note ---
Date of Service April 14, 2021 Assessment & Plan (1) Cerebral parenchymal hemorrhage: Plan: new finding on CT head on 04/13 small, 5mm area right parietal lobe, also with trace subarachnoid hemorrhage left frontal lobe repeat head CT 04/13 and 04/14 with stable hemorrhage neurology consulted MRI brain and MRA brain ordered (2) Acute respiratory failure with hypoxia: Plan: due to COVID 19 pneumonia, bilateral infiltrates on CXR Was requiring prone positioning and BiPAP while awake, but then weaned down to wall high flow nasal cannula at 11-15 L on 03/23 However, on 03/24 worsened again was placed back on Vapotherm high flow nasal cannula On 03/25, requiring higher amounts of oxygen at 40 L and up to 80 % FiO2 to maintain pulse ox 90-91% On 03/26 switched to Ventilator HFNC at 60L, 100% FiO2 to keep POx>88%---> continued to decompensate on the morning of 03/27 and was intubated and proned He was not a candidate for ECMO Previously had pneumomediastinum which is now resolved Status post tocilizumab on 03/21 Completed a course of high-dose dexamethasone initially with 10 mg daily and then on 03/28, increased to 20 mg daily x5 days, then 10 mg daily x5 days 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 guarded prognosis, ICU managing family meeting scheduled for 04/14 with palliative care, continue current plan for now, no major changes (3) AMS (altered mental status): Plan: ongoing issue, very difficult to manage etiologies include: ICU delirium, hypernatremia, fevers, infection, elevated ammonia he opens his eyes to command, squeezes hand on command which is improvement ammonia is > 40, started on lactulose Na is coming down to 152 with free water and D5W fevers? infection is covered, could be central fevers with small parenchymal hemorrhage all sedation is off at this point, try to keep it off to promote proper mentation (4) Fever: Plan: Fevers started on 04/02, then resolved UA normal on 04/02 CXR with persistent infiltrates, sputum culture with group C beta strep blood cultures - no growth from 04/02, but blood cultures positive on 04/09 for coagulase-negative Staphylococcus in 1/2 sets-likely contaminant Blood cultures 04/10-no growth to date He then continued with persistent fevers from 04/05-04/10 acute sinusitis/large mastoid effusions seen on MRI brain possible right lung abscess on CT chest on 04/09--negative AFB, culture no growth to date right pleural effusion - thoracentesis, pleural culture negative Central and arterial lines have been removed and replaced with peripheral IVs Dopplers of lower extremities negative for DVT CT chest/abdomen/pelvis significant for lung abscess, necrotizing pancreatitis but lipase normal MRIs of cervical/thoracic/lumbar spine without epidural abscess or discitis MRSA swab remains negative - continue Levaquin and Flagyl, was started 04/07 echo is ordered and still pending (5) Bradycardia: Plan: with sinus terry initially while on BIPAP prior to intubation HR dropped to 20's on 04/12, required atropine, pacer pads on continue metoprolol for SVT (6) SVT (supraventricular tachycardia): Plan: Had SVT to the 200s on the evening of 04/07 with associated hypotension requiring esmolol, amiodarone, adenosine x3, synchronized cardioversion x5 Also had further atrial fibrillation on 04/07 and again on the night of 04/09 Now back in normal sinus rhythm continue metoprolol 25mg BID Continue to replace electrolytes as needed (7) Pneumonia due to COVID-19 virus: Plan: As above still requiring mechanical ventilation, now status post tracheostomy (8) Transaminitis: Plan: Persists, likely secondary to COVID-19 infection, but could be medication side effect Improving (9) Hypotension: Plan: Has intermittently required vasopressors especially with SVT and rapid atrial fibrillation Now resolved, off vasopressors and now persistently hypertensive (10) Hypertension: Plan: Now with significant hypertension especially is weaning off sedation give nicardipine to keep BP < 140 with intraparenchymal hemorrhage (11) Hypokalemia: Plan: monitor daily, ICU replacement protocol (12) BPH loc w urin obs/LUTS: Plan: Rogers catheter in place (13) Lung abscess: Plan: As above Status post aspiration Follow cultures-no growth to date Continue levofloxacin, metronidazole (14) Pancreatitis: Plan: Visualized on CT of the abdomen with suspected necrotizing pancreatitis Lipase normal, triglycerides improving Difficult to tell patient is having pain Continue tube feeds Plan: DVT prophylaxis: SCD, Lovenox stopped due to intraparenchymal bleeding Disposition: Continued stay in ICU, very guarded prognosis CODE STATUS: conditional code with no compressions Admission and Anticipated Discharge Date Admission Date: March 20, [address] head this morning shows stability, 5mm parenchymal hemorrhage in right parietal lobe checking MRI brain and MRA brain palliative care had family meeting today, continue to discuss goals of care, no major changes at this time reviewed labs and imaging spoke with Dr. Montes Review of Systems Review of Systems: Unobtainable due to cognitive status Physical Exam Constitutional: well developed, + obese and + mechanically ventilated (tracheostomy); no acute distress Neck: trachea midline, no thyromegaly + tracheostomy present Respiratory: + tachypneic and symmetric chest movement (ventilated, supine position) Auscultation: no crackles, no rales, no rhonchi and no wheezes Cardiovascular: RRR, no murmur, no edema Gastrointestinal (Abdomen): normal bowel sounds, soft, nontender, no hepatosplenomegaly Musculoskeletal: Head/Neck/Chest: normocephalic, head atraumatic and neck supple Extremities: extremities normal to inspection; no cyanosis, no clubbing and no petechiae Skin: no rashes, warm and dry Neurologic: CN's II-XI intact bilaterally and awake (opens eyes to command); no focal motor deficits (squeezes hands appropriately) Speech / Cognition: + abnormal speech (has tracheostomy) Motor/Sensory: no tremor and no fasciculations Psychiatric: Orientation: + not alert Results & Data Results & Data ([facility]) Vital Signs (Past 12 Hours) Vital Signs Temp Pulse Resp BP Pulse Ox 04/14/21 12:28 69 140/64 93 04/14/21 12:13 37.0 C 72 143/63 H 92 04/14/21 11:58 72 151/68 H 90 04/14/21 11:43 76 138/65 94 04/14/21 11:28 69 140/58 L 94 04/14/21 11:10 70 38 H 92 04/14/21 11:07 92 04/14/21 10:26 37.1 C 67 131/59 L 96 04/14/21 10:11 37.1 C 68 123/55 L 96 04/14/21 09:56 37.1 C 65 135/61 95 04/14/21 09:41 37.1 C 66 135/52 L 94 04/14/21 09:26 37.0 C 74 147/62 H 93 04/14/21 09:11 37.0 C 70 153/61 H 93 04/14/21 08:56 37.1 C 67 150/58 H 93 04/14/21 08:41 37.1 C 69 149/64 H 93 04/14/21 08:26 37.0 C 73 169/61 H 92 04/14/21 08:11 37.0 C 66 125/45 L 96 04/14/21 07:56 37.1 C 68 121/50 L 96 04/14/21 07:43 57 L 40 H 91 04/14/21 07:41 37.1 C 59 L 115/52 L 96 04/14/21 07:26 37.1 C 66 115/50 L 95 04/14/21 07:11 37.1 C 62 123/49 L 95 04/14/21 04:33 64 36 H 92 Laboratory Results Laboratory Results - last 24 hr 04/13/21 04/13/21 04/13/21 16:32 17:42 20:38 WBC RBC Hgb POC Hgb Hct POC Hct MCV MCH MCHC RDW Std Deviation RDW Coeff of Sujit Plt Count MPV Immature Gran % (Auto) Neut % (Auto) Lymph % (Auto) [place] % (Auto) Eos % (Auto) Baso % (Auto) Neut # (Auto) Lymph # (Auto) [place] # (Auto) Eos # (Auto) Baso # (Auto) Immature Gran # (Auto) PT INR APTT PTT Ratio Sample Site POC pH POC pCO2 POC pO2 POC HCO3 POC Total CO2 POC Base Excess ABG pH (Temp Correct) ABG pCO2 (Temp Corrct POC ABG pO2 at Pt Temp POC ABG O2 Sat Sher Test O2 Delivery Device POC O2 Rate POC FiO2 Tidal Volume PEEP POC Sodium Sodium 150 H POC Potassium Potassium 4.0 D Chloride 121 H Carbon Dioxide 26 Anion Gap 3.0 BUN 42 H Creatinine 1.10 Est Cr Clr Drug Dosing 90.3 Est GFR ( Amer) 84.1 Est GFR (Non-Af Amer) 72.6 BUN/Creatinine Ratio 38.0 H Glucose 135 H POC Glucose 158 H 180 H Calcium 8.2 L Phosphorus Magnesium 04/13/21 04/13/21 04/14/21 23:36 23:41 03:43 WBC RBC Hgb POC Hgb Hct POC Hct MCV MCH MCHC RDW Std Deviation RDW Coeff of Sujit Plt Count MPV Immature Gran % (Auto) Neut % (Auto) Lymph % (Auto) [place] % (Auto) Eos % (Auto) Baso % (Auto) Neut # (Auto) Lymph # (Auto) [place] # (Auto) Eos # (Auto) Baso # (Auto) Immature Gran # (Auto) PT 10.9 INR 1.1 APTT 26.8 PTT Ratio 1.0 Sample Site POC pH POC pCO2 POC pO2 POC HCO3 POC Total CO2 POC Base Excess ABG pH (Temp Correct) ABG pCO2 (Temp Corrct POC ABG pO2 at Pt Temp POC ABG O2 Sat Sher Test O2 Delivery Device POC O2 Rate POC FiO2 Tidal Volume PEEP POC Sodium Sodium POC Potassium Potassium Chloride Carbon Dioxide Anion Gap BUN Creatinine Est Cr Clr Drug Dosing Est GFR ( Amer) Est GFR (Non-Af Amer) BUN/Creatinine Ratio Glucose POC Glucose 175 H 165 H Calcium Phosphorus Magnesium 04/14/21 04/14/21 04/14/21 04:20 04:28 05:47 WBC 10.11 RBC 2.91 L Hgb 8.6 L POC Hgb 8.8 L 8.5 L Hct 28.7 L POC Hct 26 L 25 L MCV 98.6 MCH 29.6 MCHC 30.0 L RDW Std Deviation 58.4 H RDW Coeff of Sujit 16.1 H Plt Count 254 MPV 10.6 H Immature Gran % (Auto) 1.6 Neut % (Auto) 83.9 Lymph % (Auto) 4.5 [place] % (Auto) 6.9 Eos % (Auto) 3.0 Baso % (Auto) 0.1 Neut # (Auto) 8.48 H Lymph # (Auto) 0.46 L [place] # (Auto) 0.70 H Eos # (Auto) 0.30 Baso # (Auto) 0.01 Immature Gran # (Auto) 0.16 H PT INR APTT PTT Ratio Sample Site R Radial L Radial POC pH 7.34 L 7.39 POC pCO2 50 H 43 POC pO2 44 L 73 L POC HCO3 27 H 26 H POC Total CO2 28 27 POC Base Excess 1.0 1.0 ABG pH (Temp Correct) 7.337 L 7.382 ABG pCO2 (Temp Corrct 50 H 43 POC ABG pO2 at Pt Temp 44 74 POC ABG O2 Sat 76.0 L 94.0 Shre Test Pass Pass O2 Delivery Device Ventilator Ventilator POC O2 Rate 30 30 POC FiO2 50 50 Tidal Volume 470 470 PEEP 8 8 POC Sodium 150 H 150 H Sodium POC Potassium 3.7 3.7 Potassium Chloride Carbon Dioxide Anion Gap BUN Creatinine Est Cr Clr Drug Dosing Est GFR ( Amer) Est GFR (Non-Af Amer) BUN/Creatinine Ratio Glucose POC Glucose Calcium Phosphorus Magnesium 04/14/21 04/14/21 04/14/21 05:47 05:47 08:33 WBC RBC Hgb POC Hgb Hct POC Hct MCV MCH MCHC RDW Std Deviation RDW Coeff of Sujit Plt Count MPV Immature Gran % (Auto) Neut % (Auto) Lymph % (Auto) [place] % (Auto) Eos % (Auto) Baso % (Auto) Neut # (Auto) Lymph # (Auto) [place] # (Auto) Eos # (Auto) Baso # (Auto) Immature Gran # (Auto) PT 11.0 INR 1.1 APTT 25.6 PTT Ratio 1.0 Sample Site POC pH POC pCO2 POC pO2 POC HCO3 POC Total CO2 POC Base Excess ABG pH (Temp Correct) ABG pCO2 (Temp Corrct POC ABG pO2 at Pt Temp POC ABG O2 Sat Sher Test O2 Delivery Device POC O2 Rate POC FiO2 Tidal Volume PEEP POC Sodium Sodium 152 H POC Potassium Potassium 3.3 L D Chloride 127 H Carbon Dioxide 22 Anion Gap 3.0 BUN 35 H Creatinine 0.88 Est Cr Clr Drug Dosing 112.9 Est GFR ( Amer) 108.2 Est GFR (Non-Af Amer) 93.4 BUN/Creatinine Ratio 39.8 H Glucose 153 H POC Glucose 164 H Calcium 6.5 L D Phosphorus 2.5 Magnesium 2.0 04/14/21 11:49 WBC RBC Hgb POC Hgb Hct POC Hct MCV MCH MCHC RDW Std Deviation RDW Coeff of Sujit Plt Count MPV Immature Gran % (Auto) Neut % (Auto) Lymph % (Auto) [place] % (Auto) Eos % (Auto) Baso % (Auto) Neut # (Auto) Lymph # (Auto) [place] # (Auto) Eos # (Auto) Baso # (Auto) Immature Gran # (Auto) PT INR APTT PTT Ratio Sample Site POC pH POC pCO2 POC pO2 POC HCO3 POC Total CO2 POC Base Excess ABG pH (Temp Correct) ABG pCO2 (Temp Corrct POC ABG pO2 at Pt Temp POC ABG O2 Sat Sher Test O2 Delivery Device POC O2 Rate POC FiO2 Tidal Volume PEEP POC Sodium Sodium POC Potassium Potassium Chloride Carbon Dioxide Anion Gap BUN Creatinine Est Cr Clr Drug Dosing Est GFR ( Amer) Est GFR (Non-Af Amer) BUN/Creatinine Ratio Glucose POC Glucose 147 H Calcium Phosphorus Magnesium Diagnostic Findings CT head IMPRESSION: Unchanged 5 mm hemorrhagic focus of the periventricular right frontal parietal lobe. Medications Administered Current Inpatient Medications Acetaminophen (Acetaminophen 500 Mg Tab) 1,000 mg PO Q6H PRN PRN Reason: Fever or headache Stop: 05/05/21 12:50 Last Admin: 04/08/21 20:55 Dose: 1,000 mg Documented by: Albuterol (Albut/Ipratrop 3mg/0.5mg Neb 3 Ml Vial) 3 ml NEB Q4R PRN PRN Reason: Shortness of Breath/Wheezing Stop: 04/19/21 16:45 Amlodipine Besylate (Amlodipine Besylate 5 Mg Tab) 10 mg PO QAM MARCIA Stop: 04/29/21 08:59 Last Admin: 04/14/21 08:15 Dose: 10 mg Documented by: Atropine Sulfate (Atropine Sulfate 0.1 Mg/Ml 10ml Syr) 1 mg IV .KEEP AT BEDSIDE PRN PRN Reason: AT BEDSIDE PLEASE Dextrose (Dextrose 50% 50 Ml Syringe) 25 - 50 ml IV UD PRN; Protocol PRN Reason: Hypoglycemia Protocol Stop: 05/12/21 10:44 Enteral Nutritional Formula (Impact Liqd 1.0 Darrian 1,000 Ml Bag) 1,000 ml GT UD MARCIA; Protocol Stop: 05/10/21 07:59 Last Admin: 04/13/21 17:35 Dose: 1,000 ml Documented by: Glucagon (Glucagon For Inj 1 Mg Vial) 1 mg SQ UD PRN; Protocol PRN Reason: Hypoglycemia Protocol Stop: 05/12/21 10:44 Glucose (Glucose 40% Gel 15 Gm Tube) 15 - 30 gm PO UD PRN; Protocol PRN Reason: Hypoglycemia Protocol Stop: 05/12/21 10:44 Glucose (Glucose 10 Tabs/Tube) 4 - 8 tabs PO UD PRN; Protocol PRN Reason: Hypoglycemia Protocol Stop: 05/12/21 10:44 Hydralazine HCl (Hydralazine Hcl 20 Mg/Ml Vial) 10 mg IV Q6H PRN PRN Reason: hypertension Stop: 05/10/21 20:14 Last Admin: 04/14/21 02:17 Dose: 10 mg Documented by: Levofloxacin/Dextrose (Levaquin/D5w) 750 mg in 150 mls @ 100 mls/hr IV DAILY@1000 [facility]; Protocol Stop: 04/17/21 10:44 Last Infusion: 04/14/21 11:00 Dose: Infused Documented by: Metronidazole (Flagyl) 500 mg in 100 mls @ 100 mls/hr IV Q8@0200,1000,1800 [facility] Stop: 04/17/21 10:44 Last Infusion: 04/14/21 11:32 Dose: Infused Documented by: Dextrose (D5w) 1,000 mls @ 125 mls/hr IV .Q8H [facility] Stop: 05/12/21 08:29 Last Admin: 04/14/21 08:12 Dose: 125 mls/hr Documented by: Nicardipine HCl 50 mg/ (Dextrose) 250 mls @ 50 mls/hr IV .Q5H MARCIA; Protocol Stop: 05/14/21 08:59 Last Admin: 04/14/21 09:52 Dose: 10 mg/hr, 50 mls/hr Documented by: Insulin Aspart (Insulin Aspart 100 Units/Ml 3 Ml Pen) 0 units SC Q4 [facility] Stop: 05/07/21 07:59 Last Admin: 04/14/21 12:16 Dose: 5 units Documented by: Lactulose (Lactulose Syrup 20 Gm/30 Ml Udc) 10 gm PO BID [facility] Stop: 05/13/21 20:59 Last Admin: 04/14/21 08:13 Dose: 10 gm Documented by: Lansoprazole (Lansoprazole 30 Mg Soltab) 30 mg OG BID [facility] Stop: 04/27/21 20:59 Last Admin: 04/14/21 08:13 Dose: 30 mg Documented by: Metoprolol Tartrate (Metoprolol Tartrate 25 Mg Tab) 12.5 mg PO BID [facility] Stop: 05/13/21 20:59 Last Admin: 04/14/21 08:16 Dose: 12.5 mg Documented by: Midazolam HCl (Midazolam Hcl 1 Mg/Ml 2ml Vial) 2 mg IV Q2H PRN PRN Reason: Agitation Stop: 05/14/21 02:18 Last Admin: 04/14/21 02:46 Dose: 2 mg Documented by: Miscellaneous (Carbohydrates For Hypoglycemia ) 15 - 30 gm PO UD PRN PRN Reason: Hypoglycemia Treatment Stop: 05/12/21 10:44 Multi-Ingredient Cream (Artificial Tears Op Oint 3.5 Gm Tube) 1 appln OP Q4 PRN PRN Reason: DRY EYES Stop: 04/26/21 08:59 Sennosides (Sennosides 8.8 Mg/5 Ml Udc) 17.6 mg PO BID PRN PRN Reason: CONSTIPATION Stop: 05/06/21 20:59 Sterile Water (Tube Feeding Water Flush) 350 ml GT Q4H MARCIA Stop: 05/14/21 09:59 Last Admin: 04/14/21 13:43 Dose: 350 ml Documented by: PG Care Time/CCT Total # of Minutes Spent Total Time Spent with Patient: Total time spent is greater than 50% in coordination of care (as documented) at patient's floor/unit and/or counseling patient: Coding Level of Care Code 42412 Subseq Hosp Care Lvl 3 Diagnoses Cerebral parenchymal hemorrhage I61.9 Acute respiratory failure with hypoxia J96.01 AMS (altered mental status) R41.82 Fever R50.9 Bradycardia R00.1 SVT (supraventricular tachycardia) I47.1 Pneumonia due to COVID-19 virus U07.1; J12.82 Transaminitis R74.01 Hypotension I95.9 Hypertension I10 Hypokalemia E87.6 BPH loc w urin obs/LUTS N40.1 Lung abscess J85.2 Pancreatitis K85.90
--- NOTE | 2021-04-14 14:24 | Magnetic Resonance Report ---
Brain MRI WITHOUT CONTRAST HISTORY: Intracranial hemorrhage. Follow-up. TECHNIQUE: Multiplanar multisequence MRI of the brain was performed without the use of contrast. COMPARISON STUDY: Head CT 04/14/2021. FINDINGS: There is a punctate focus of restricted diffusion seen within the periventricular white mat ter of the frontoparietal region which corresponds to the 5 mm intraparenchymal hematoma. Otherwise, no additional foci of restricted diffusion to suggest acute infarction. The midline structures are in tact. There is no definite mass or midline shift. There is mild vasogenic edema surrounding the right frontoparietal intraparenchymal hematoma. Mild mucosal thickening within the maxillary sinuses. Ther e are bilateral mastoid effusions, unchanged. The major vascular flow-voids at the skull base are wel l-maintained. IMPRESSION: No significant change in the 5 mm hemorrhagic focus within the periventricular right frontal parietal region. ACT 112: Negative or not required by law. Electronically signed by: Marco A Yee M.D. 04/14/2021 2:22 PM
--- NOTE | 2021-04-14 14:28 | Magnetic Resonance Report ---
MR angio head wo con HISTORY: 61 years-old Male ICH . Study in a patient with acute intracranial hemorrhage COMPARISON: Brain MRI of same day, head CT 04/14/2021 TECHNIQUE: MRA of the head was obtained without the use of IV contrast 3-D coronal and sagittal MIPS were obtained and submitted for review. All measurements were obtained according to NASCET criteria. FINDINGS: The imaged internal carotid arteries, middle and anterior cerebral arteries are widely patent. The ve rtebral, basilar and posterior cerebral arteries are patent. There is no aneurysm, dissection, high-g rade stenosis or arterial occlusion. Subcentimeter hemorrhagic focus of the right frontal parietal pe riventricular distribution is better seen on comparison MRI of the brain. IMPRESSION: Unremarkable MRA of the head. ACT 112: Negative or not required by law. The above report was generated using voice recognition software. It may contain grammatical, syntax o r spelling errors. Electronically signed by: Arpit Dutton M.D. 04/14/2021 2:26 PM
[2021-04-14 15:56] LABS: Calcium 7.7 mg/dl (8.5-10.1); Creatinine Clr Calc Pharmacy 93.7 ml/min; Est GFR (Non-African American) 75.9 ml/min; Potassium 4.2 mmol/L (3.5-5.1)
[2021-04-14] MEDS: IMPACT LIQD 1.0 CAL 1,000 ML BAG GT SCH (16:37)
[2021-04-15] MEDS: INSULIN ASPART 100 UNITS/ML 3 ML PEN SC SCH ×7 (00:16→23:58)
[2021-04-15 00:35] LABS: BUN Creatinine Ratio 33.6 (10-20); Est GFR (Non-African American) 74.2 ml/min; Potassium 3.8 mmol/L (3.5-5.1)
[2021-04-15] MEDS: metroNIDAZOLE 500 MG/100 ML BAG IV SCH ×3 (01:25→18:00)
[2021-04-15] MEDS: TUBE FEEDING WATER FLUSH GT SCH ×6 (03:36→23:58)
[2021-04-15 03:55] LABS: iSTAT Allen Test Pass; iSTAT Art Bld Gas pCO2 Correct 50 mmHg (35-46); iSTAT Art Bld Gas pH Corrected 7.318 (7.35-7.45); iSTAT Arterial Blood Gas HCO3 26 meg/L (19-24); iSTAT Arterial Blood Gas pCO2 50 mmHg (35-46); iSTAT Arterial Blood Gas pH 7.32 (7.35-7.45); iSTAT Arterial Blood Gas pO2 61 mmHg (80-95); iSTAT Arterial Blood Gas pO2 C 61; iSTAT Carbon Dioxide 27 mmol/L (24-31); iSTAT FiO2 50 %; iSTAT Hematocrit 26 % (42-52); iSTAT Hemoglobin 8.8 g/dl (14.0-18.0); iSTAT Potassium 3.6 mmol/L (3.3-5.0); iSTAT Site L Radial; iSTAT Sodium 143 mmol/L (135-144)
[2021-04-15] MEDS ORDERED: POTASSIUM CHLORIDE 20 MEQ/15 ML UDC PO STA (06:06)
[2021-04-15 06:12] LABS: Basophils # (auto) 0.02 K/uL (0-0.2); Basophils % (auto) 0.2 %; Eosinophils # (auto) 0.46 K/uL (0-0.5); Hematocrit (blood only) 29.1 % (42-52); Immature Granulocytes # (auto) 0.17 K/uL (0.00-0.02); Immature Granulocytes % (auto) 1.5 %; Lymphocytes # (auto) 0.45 K/uL (1.2-3.4); Mean Corpuscular Hemoglobin 29.6 pg (25-34); Mean Corpuscular Hgb Conc 30.9 g/dL (32-36); Mean Corpuscular Volume 95.7 fL (80-100); Mean Platelet Volume 10.9 fL (7.4-10.4); Monocytes # (auto) 0.54 K/uL (0.11-0.59); Monocytes % (auto) 4.7 %; Neutrophils # (auto) 9.75 K/uL (1.4-6.5); Neutrophils % (auto) 85.6 %; Platelet Count 287 K/uL (130-400); RDW Coefficient of Variation 15.3 % (11.5-14.5); RDW Standard Deviation 53.3 fL (36.4-46.3); Red Blood Count 3.04 M/uL (4.7-6.1); White Blood Count 11.39 K/uL (4.8-10.8)
[2021-04-15 06:21] LABS: Partial Thromboplastin Time 25.6 Seconds (21.0-31.0); Prothrombin Time 10.4 Seconds (9.0-12.0)
[2021-04-15 06:51] LABS: BUN Creatinine Ratio 34.2 (10-20); Calcium 7.1 mg/dl (8.5-10.1); Creatinine Clr Calc Pharmacy 96.4 ml/min; Est GFR (African American) 91.1 ml/min; Est GFR (Non-African American) 78.6 ml/min; Magnesium 2.3 mg/dl (1.8-2.4); Potassium 3.9 mmol/L (3.5-5.1)
[2021-04-15 07:03] LABS: Phosphorus 3.2 mg/dl (2.5-4.9)
[2021-04-15] MEDS: METOPROLOL TARTRATE 25 MG TAB PO SCH (08:05)
[2021-04-15] MEDS: LANSOPRAZOLE 30 MG SOLTAB OG SCH ×2 (08:07→20:19)
[2021-04-15] MEDS: amLODIPine BESYLATE 5 MG TAB PO SCH (08:08)
[2021-04-15] MEDS: LACTULOSE SYRUP 20 GM/30 ML UDC PO SCH (08:12)
[2021-04-15] MEDS: IMPACT LIQD 1.0 CAL 1,000 ML BAG GT SCH (08:20)
--- NOTE | 2021-04-15 08:23 | XRay Report ---
XR chest 1V portable HISTORY: Respiratory failure. COMPARISON: Chest 04/13/2021. FINDINGS: Tracheostomy tube is in good position. Feeding tube terminates below the diaphragm. The tip is not included in this study. No pneumothorax. Small right pleural effusion, unchanged. Patchy bila teral airspace opacities persist. The heart remains mildly enlarged. IMPRESSION: No change compared to the prior study with multifocal bilateral airspace opacities and a small right pleural effusion. Satisfactory support line placement. ACT 112: Negative or not required by law. Electronically signed by: Marco A Yee M.D. 04/15/2021 8:21 AM
[2021-04-15] MEDS: levoFLOXacin/D5W 750 MG/150 ML BAG IV SCH (08:48)
[2021-04-15] MEDS ORDERED: FUROSEMIDE 40 MG/4 ML VIAL IV SCH (10:00)
--- NOTE | 2021-04-15 10:23 | Neurology Progress Note ---
Date of Service April 15, 2021 Assessment & Plan (1) Cerebral parenchymal hemorrhage: Plan: Small, stable, 5 mm hemorrhagic focus within the right periventricular right frontal parietal region. No need for additional follow-up imaging at this point in time. If this patient's neurologic status significantly changes going forward, however, would recommend follow-up noncontrast CT of the head in that context. Follow-up with results of echocardiogram when available. Continue supportive medical care. Admission and Anticipated Discharge Date Admission Date: March 20, 2021 Results & Data ([facility]) Vital Signs (Past 12 Hours) Vital Signs Temp Pulse Resp BP Pulse Ox 04/15/21 07:43 66 35 H 93 04/15/21 07:05 36.1 C L 59 L 136/54 L 95 04/15/21 06:35 36.1 C L 61 132/53 L 96 04/15/21 06:05 36.1 C L 60 135/57 L 93 04/15/21 05:35 36.2 C L 59 L 139/64 89 L 04/15/21 05:00 36.2 C L 67 90 04/15/21 04:35 62 132/54 L 88 L 04/15/21 04:22 36.0 C L 04/15/21 04:05 61 153/68 H 92 04/15/21 03:35 68 145/59 H 90 04/15/21 03:30 90 37 H 66 L 04/15/21 03:04 65 132/52 L 92 04/15/21 02:35 64 139/62 92 04/15/21 02:05 65 122/57 L 93 04/15/21 01:34 66 132/61 92 04/15/21 01:04 63 138/57 L 91 04/15/21 00:34 66 116/44 L 92 04/15/21 00:05 57 L 142/57 H 91 04/15/21 00:00 35.8 C L 04/14/21 23:34 63 142/61 H 91 04/14/21 23:19 69 36 H 90 04/14/21 23:04 60 148/64 H 91 04/14/21 22:34 61 142/68 H 93 Diagnostic Findings MRI of the brain and MRA of the head reviewed. No significant change in the previously identified 5 mm hemorrhagic focus within the periventricular right frontal parietal region. There is mild associated vasogenic edema without associated mass-effect or midline shift. The MRA of the head is unremarkable, no evidence of aneurysm, dissection, high-grade stenosis, or arterial occlusion. I reviewed the images as well as the radiologist's interpretation of these tests. An echocardiogram has been ordered. Coding Level of Care Code None Diagnoses Cerebral parenchymal hemorrhage I61.9
--- NOTE | 2021-04-15 10:27 | Critical Care Progress Note ---
Date of Service April 15, 2021 Assessment & Plan (1) Acute respiratory failure with hypoxia: Plan: Reason Critically Ill: 61-year-old male with past medical history of hypertension admitted to the hospital for COVID-19 pneumonia and acute hypoxic respiratory failure, intubated 03/27/2021 PLAN: NEURO: EEG without epileptiform activity. MRI brain 04/14/2021 with no significant change in the 5 mm hemorrhagic focus within the periventricular right frontoparietal region. Brain MRA 04/14/2021 unremarkable. Maintain systolic blood pressures under 140mmHg. Appreciate neurology consultation. Echo ordered to evaluate for embolic phenomenon. RESPIRATORY: VDRF with acute hypoxic respiratory failure, secondary to multilobar COVID-19 pneumonia - COVID-19 PCR positive 03/16/2021, remains positive as of 04/07/21 - S/p Tocilizumab 03/21/2021 - Intubated 03/27/2021; tracheostomy performed 04/05/21 - Continue with lung protective ventilation -Continue pressure support as able. ARDS net high-dose steroid protocol - Dexamethasone 20mg x5 days, 10mg x5 days -- completed on 04/06 Pneumomediastinum--> resolved Lung abscess on CT 04/09 Right-sided pleural effusion -Status post thoracentesis 04/09; cultures negative thus far. CARDIOVASCULAR: Paroxysmal atrial fibrillation with RVR: Currently normal sinus rhythm. Continue metoprolol and amlodipine Episode of SVT evening of 04/07, 04/09: Resolved Intermittent episodes of bradycardia noted with suctioning. Pacer pads in place. EKG checked 04/12/2021. QTc interval 495 ms. ID: Lung abscess- will require 4 to 6 weeks of antibiotic therapy for the pulmonary abscess. - Sputum cultures with Group G Beta strep. Repeat sputum cultures negative thus far. Bacteremia - Repeat blood cultures 04/08 with 1 bottle growing coag negative staph: Suspect contaminant -Repeat blood cultures remain negative GI/Nutrition: Transaminitis -resolved Elevated lipase: Resolved Necrotizing pancreatitis Continue tube feeds. Renal: We will start 40 mg IV Lasix daily. Will monitor sodium closely. Decrease free water flushes to 250 every 4 hours. Discontinue D5. Hypernatremia improved. Heme: Anemia secondary to bone marrow suppression of disease process Endocrine: ICU hyperglycemia protocol --Prophylaxis VTE: Lovenox on hold due to intraparenchymal hemorrhage. Continue SCDs. GI: Lansoprazole Lines: Sue AJ Patient's Mrs. Emperatriz Neri [phone] Overall prognosis very guarded. Palliative care consult. (2) Pneumonia due to COVID-19 virus: (3) Pulmonary abscess: (4) AMS (altered mental status): (5) Cerebral parenchymal hemorrhage: (6) Encephalopathy: (7) Hypernatremia: Admission and Anticipated Discharge Date Admission Date: March 20, 2021 Subjective Patient seen and this morning. He remains very tachypneic. He nods his head yes when I asked him if he is short of breath. He is off sedation. No significant issues overnight. Remains on nicardipine drip. Review of Systems Review of Systems: Unobtainable due to cognitive status and Unobtainable due to endotracheal tube Physical Exam Physical Exam: General: Appears lethargic is tachypneic. Mild distress. Skin: Warm, dry, Head: Nontraumatic. Ears, nose, mouth and throat: Tracheostomy in place. No obvious deformities. Cardiovascular: Normal peripheral perfusion Respiratory: Coarse sounds bilaterally. Tachypneic. Gastrointestinal: Non distended. Soft. Musculoskeletal: No deformity, trace edema Results & Data Results & Data ([facility] [place]) Vital Signs (Past 12 Hours) Vital Signs Temp Pulse Resp BP Pulse Ox 04/15/21 07:43 66 35 H 93 04/15/21 07:05 97.0 F L 59 L 136/54 L 95 04/15/21 06:35 97.0 F L 61 132/53 L 96 04/15/21 06:05 97.0 F L 60 135/57 L 93 04/15/21 05:35 97.2 F L 59 L 139/64 89 L 04/15/21 05:00 97.2 F L 67 90 04/15/21 04:35 62 132/54 L 88 L 04/15/21 04:22 96.8 F L 04/15/21 04:05 61 153/68 H 92 04/15/21 03:35 68 145/59 H 90 04/15/21 03:30 90 37 H 66 L 04/15/21 03:04 65 132/52 L 92 04/15/21 02:35 64 139/62 92 04/15/21 02:05 65 122/57 L 93 04/15/21 01:34 66 132/61 92 04/15/21 01:04 63 138/57 L 91 04/15/21 00:34 66 116/44 L 92 04/15/21 00:05 57 L 142/57 H 91 04/15/21 00:00 96.4 F L 04/14/21 23:34 63 142/61 H 91 04/14/21 23:19 69 36 H 90 04/14/21 23:04 60 148/64 H 04/14/21 22:34 61 142/68 H 93 vital signs, labs and imaging reviewed Coding Level of Care Code 48999 Subseq Hosp Care Lvl 3 Diagnoses Acute respiratory failure with hypoxia J96.01 Pneumonia due to COVID-19 virus U07.1; J12.82 Pulmonary abscess J85.2 AMS (altered mental status) R41.82 Cerebral parenchymal hemorrhage I61.9 Encephalopathy G93.40 Hypernatremia E87.0
[2021-04-15] MEDS ORDERED: Nursing to Pharmacy Communication SCH (12:12)
[2021-04-15] MEDS ORDERED: TUBE FEEDING WATER FLUSH GT SCH (16:00)
[2021-04-15] MEDS: MIDAZOLAM HCL 1 MG/ML 2ML VIAL IV PRN ×2 (18:24→22:31)
--- NOTE | 2021-04-15 18:43 | Communication Note ---
Date of Service: April 15, 2021 I had an extensive discussion today with the patient's lasting roughly 35 minutes. I updated her regarding the patient's condition. She is aware that he has had a airborne isolation at present. I am giving her permission to visit the patient when she is able in the next couple of days. She is hopeful about his condition, but understands that he is critically ill and can decompensate at any time. She would still like to continue with our current care. I am discontinuing metoprolol given the frequent sinus pauses and bradycardic episodes he has happened. Additionally, I have added Klonopin 0.25 mg twice daily to help with anxiety component. We can consider increasing the dose of Klonopin depending on his response. Coding Level of Care Code None
[2021-04-15 19:16] LABS: BUN Creatinine Ratio 32.6 (10-20); Calcium 7.9 mg/dl (8.5-10.1); Creatinine Clr Calc Pharmacy 90.3 ml/min; Est GFR (African American) 84.1 ml/min; Est GFR (Non-African American) 72.6 ml/min
[2021-04-15] MEDS ORDERED: FUROSEMIDE 40 MG in SYRINGE 0 ML IV ONE (19:40)
[2021-04-15] MEDS ORDERED: FUROSEMIDE 40 MG/4 ML VIAL IV ONE (19:45)
--- NOTE | 2021-04-15 19:53 | XCELERA ---
[id number]\[id number]
[2021-04-15] MEDS: clonazePAM 0.25 MG TAB PO SCH (20:19)
[2021-04-15] MEDS: FUROSEMIDE 100 MG in DEXTROSE 5% 90 ML IV SCH (20:37)
[2021-04-15] MEDS: DEXTROSE 5% 1,000 ML IV SCH (21:33)
[2021-04-15] MEDS: fentaNYL citrate 2,500 MCG/250 ML BAG IV SCH (21:33)
--- NOTE | 2021-04-15 22:55 | Hospitalist Progress Note ---
Date of Service April 15, 2021 Assessment & Plan (1) Cerebral parenchymal hemorrhage: Plan: new finding on CT head on 04/13 small, 5mm area right parietal lobe, also with trace subarachnoid hemorrhage left frontal lobe repeat head CT 04/13 and 04/14 with stable hemorrhage neurology consulted, likely bleed in setting of hypertension, Lovenox MRI brain and MRA brain on 04/14: unchanged right 5mm parenchymal hemorrhage, normal angiography (2) Acute respiratory failure with hypoxia: Plan: due to COVID 19 pneumonia, bilateral infiltrates on CXR Was requiring prone positioning and BiPAP while awake, but then weaned down to wall high flow nasal cannula at 11-15 L on 03/23 However, on 03/24 worsened again was placed back on Vapotherm high flow nasal cannula On 03/25, requiring higher amounts of oxygen at 40 L and up to 80 % FiO2 to maintain pulse ox 90-91% On 03/26 switched to Ventilator HFNC at 60L, 100% FiO2 to keep POx>88%---> continued to decompensate on the morning of 03/27 and was intubated and proned He was not a candidate for ECMO Previously had pneumomediastinum which is now resolved Status post tocilizumab on 03/21 Completed a course of high-dose dexamethasone initially with 10 mg daily and then on 03/28, increased to 20 mg daily x5 days, then 10 mg daily x5 days 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 status post tracheostomy on 04/05 currently on assist control, breathing in low to mid 30s off of all scheduled sedation starting Klonopin for anxiety will come in to visit patient since he is now off negative pressure precautions (3) AMS (altered mental status): Plan: ongoing issue, but improving etiologies include: ICU delirium, hypernatremia, fevers, infection, elevated ammonia he opens his eyes to command, squeezes hand on command which is improvement, now wiggling toes on command ammonia was > 40, started on lactulose, now stopped Na is coming down to 143, peaked at 157 on Thursday 04/12 fevers? infection is covered, could be central fevers with small parenchymal hemorrhage all sedation is off at this point, adding low dose Klonopin for anxiety (4) Fever: Plan: Fevers started on 04/02, then resolved UA normal on 04/02 CXR with persistent infiltrates, sputum culture with group C beta strep blood cultures - no growth from 04/02, but blood cultures positive on 04/09 for coagulase-negative Staphylococcus in 1/2 sets-likely contaminant Blood cultures 04/10-no growth to date He then continued with persistent fevers from 04/05-04/10 acute sinusitis/large mastoid effusions seen on MRI brain possible right lung abscess on CT chest on 04/09--negative AFB, culture no growth to date right pleural effusion - thoracentesis, pleural culture negative Central and arterial lines have been removed and replaced with peripheral IVs Dopplers of lower extremities negative for DVT CT chest/abdomen/pelvis significant for lung abscess, necrotizing pancreatitis but lipase normal MRIs of cervical/thoracic/lumbar spine without epidural abscess or discitis MRSA swab remains negative - continue Levaquin and Flagyl, was started 04/07 echo: EF 70%, no vegetations, normal valves (5) Bradycardia: Plan: with sinus terry initially while on BIPAP prior to intubation HR dropped to 20's on 04/12, required atropine, pacer pads on stop metoprolol due to frequent pauses (6) SVT (supraventricular tachycardia): Plan: Had SVT to the 200s on the evening of 04/07 with associated hypotension requiring esmolol, amiodarone, adenosine x3, synchronized cardioversion x5 Also had further atrial fibrillation on 04/07 and again on the night of 04/09 Now back in normal sinus rhythm stope metoprolol 25mg BID due to pauses Continue to replace electrolytes as needed (7) Pneumonia due to COVID-19 virus: Plan: As above still requiring mechanical ventilation, now status post tracheostomy remove from neg pressure isolation 04/15 (8) Hypertension: Plan: Now with significant hypertension amlodipine 10mg daily (9) Hypokalemia: Plan: monitor daily, ICU replacement protocol (10) BPH loc w urin obs/LUTS: Plan: Rogers catheter in place (11) Lung abscess: Plan: As above Status post aspiration Follow cultures-no growth to date Continue levofloxacin, metronidazole for several weeks (12) Pancreatitis: Plan: Visualized on CT of the abdomen with suspected necrotizing pancreatitis Lipase normal, triglycerides improving Difficult to tell patient is having pain Continue tube feeds Plan: DVT prophylaxis: SCD, Lovenox stopped due to intraparenchymal bleeding Disposition: Continued stay in ICU, very guarded prognosis CODE STATUS: conditional code with no compressions Admission and Anticipated Discharge Date Admission Date: March 20, 2021 Subjective remains on ventilatory support breathing in 30's low grade temperatures will open eyes to voice, wiggles toes and squeezes my fingers with hands reviewed labs and imaging Dr. Montes spoke with patient's , he is now out of negative pressure isolation, she can visit him Review of Systems Review of Systems: Unobtainable due to cognitive status Physical Exam Constitutional: well developed, + obese and + mechanically ventilated (tracheostomy); no acute distress Neck: trachea midline, no thyromegaly + tracheostomy present Respiratory: + tachypneic and symmetric chest movement (ventilated, supine position) Auscultation: no crackles, no rales, no rhonchi and no wheezes Cardiovascular: RRR, no murmur, no edema Gastrointestinal (Abdomen): normal bowel sounds, soft, nontender, no hepatosplenomegaly Musculoskeletal: no cyanosis or clubbing, extremities motor strength 5/5 Head/Neck/Chest: normocephalic, head atraumatic and neck supple Extremities: extremities normal to inspection; no cyanosis, no clubbing and no petechiae Skin: no rashes, warm and dry Neurologic: CN's II-XI intact bilaterally and awake (opens eyes to command); no focal motor deficits (squeezes hands appropriately) Speech / Cognition: + abnormal speech (has tracheostomy) Motor/Sensory: no tremor and no fasciculations Results & Data Results & Data ([facility]) Vital Signs (Past 12 Hours) Vital Signs Temp Pulse Resp BP Pulse Ox 04/15/21 22:12 71 42 H 95 04/15/21 20:42 37.7 C H 82 155/69 H 93 04/15/21 20:12 37.6 C H 76 184/72 H 93 04/15/21 20:00 81 04/15/21 19:42 37.5 C 76 147/65 H 94 04/15/21 19:15 64 37 H 90 04/15/21 19:04 37.4 C 76 105/55 L 91 04/15/21 18:34 37.3 C 86 120/62 92 04/15/21 18:04 37.3 C 75 163/68 H 90 04/15/21 17:34 37.3 C 71 158/49 H 93 04/15/21 17:04 37.2 C 66 180/64 H 94 04/15/21 16:34 37.2 C 58 L 150/66 H 04/15/21 16:04 37.1 C 65 138/59 L 93 04/15/21 15:34 37.1 C 64 158/70 H 92 04/15/21 15:04 37.1 C 64 145/62 H 90 04/15/21 15:00 68 34 H 92 04/15/21 14:34 37.0 C 69 139/57 L 91 04/15/21 14:04 36.9 C 74 140/66 91 04/15/21 13:34 36.9 C 84 144/63 H 92 04/15/21 13:04 36.9 C 76 181/65 H 91 04/15/21 12:34 36.9 C 67 181/69 H 94 04/15/21 12:25 30 H 04/15/21 12:04 36.8 C 68 152/54 H 94 04/15/21 11:34 36.7 C 67 149/63 H 94 04/15/21 11:04 36.6 C 68 152/58 H 95 04/15/21 11:02 64 37 H 92 Laboratory Results Laboratory Results - last 24 hr 04/15/21 04/15/21 04/15/21 00:11 00:13 03:37 WBC RBC Hgb POC Hgb 8.8 L Hct POC Hct 26 L MCV MCH MCHC RDW Std Deviation RDW Coeff of Sujit Plt Count MPV Immature Gran % (Auto) Neut % (Auto) Lymph % (Auto) [place] % (Auto) Eos % (Auto) Baso % (Auto) Neut # (Auto) Lymph # (Auto) [place] # (Auto) Eos # (Auto) Baso # (Auto) Immature Gran # (Auto) PT INR APTT PTT Ratio Sample Site L Radial POC pH 7.32 L POC pCO2 50 H POC pO2 61 L POC HCO3 26 H POC Total CO2 27 POC Base Excess 0.0 ABG pH (Temp Correct) 7.318 L ABG pCO2 (Temp Corrct 50 H POC ABG pO2 at Pt Temp 61 POC ABG O2 Sat 89.0 L Sher Test Pass O2 Delivery Device Ventilator POC O2 Rate 30 POC FiO2 50 Tidal Volume 470 PEEP 8 POC Sodium 143 Sodium 145 POC Potassium 3.6 Potassium 3.8 Chloride 116 H Carbon Dioxide 26 Anion Gap 3.0 BUN 36 H Creatinine 1.08 Est Cr Clr Drug Dosing 92.0 Est GFR ( Amer) 86.0 Est GFR (Non-Af Amer) 74.2 BUN/Creatinine Ratio 33.6 H Glucose 237 H POC Glucose 221 H Calcium 8.0 L Phosphorus Magnesium Specimen Hemolysis 04/15/21 04/15/21 04/15/21 04:17 05:28 05:28 WBC 11.39 H RBC 3.04 L Hgb 9.0 L POC Hgb Hct 29.1 L POC Hct MCV 95.7 MCH 29.6 MCHC 30.9 L RDW Std Deviation 53.3 H RDW Coeff of Sujit 15.3 H Plt Count 287 MPV 10.9 H Immature Gran % (Auto) 1.5 Neut % (Auto) 85.6 Lymph % (Auto) 4.0 [place] % (Auto) 4.7 Eos % (Auto) 4.0 Baso % (Auto) 0.2 Neut # (Auto) 9.75 H Lymph # (Auto) 0.45 L [place] # (Auto) 0.54 Eos # (Auto) 0.46 Baso # (Auto) 0.02 Immature Gran # (Auto) 0.17 H PT 10.4 INR 1.0 APTT 25.6 PTT Ratio 1.0 Sample Site POC pH POC pCO2 POC pO2 POC HCO3 POC Total CO2 POC Base Excess ABG pH (Temp Correct) ABG pCO2 (Temp Corrct POC ABG pO2 at Pt Temp POC ABG O2 Sat Sher Test O2 Delivery Device POC O2 Rate POC FiO2 Tidal Volume PEEP POC Sodium Sodium POC Potassium Potassium Chloride Carbon Dioxide Anion Gap BUN Creatinine Est Cr Clr Drug Dosing Est GFR ( Amer) Est GFR (Non-Af Amer) BUN/Creatinine Ratio Glucose POC Glucose 139 H Calcium Phosphorus Magnesium Specimen Hemolysis 04/15/21 04/15/21 04/15/21 05:28 08:27 12:20 WBC RBC Hgb POC Hgb Hct POC Hct MCV MCH MCHC RDW Std Deviation RDW Coeff of Sujit Plt Count MPV Immature Gran % (Auto) Neut % (Auto) Lymph % (Auto) [place] % (Auto) Eos % (Auto) Baso % (Auto) Neut # (Auto) Lymph # (Auto) [place] # (Auto) Eos # (Auto) Baso # (Auto) Immature Gran # (Auto) PT INR APTT PTT Ratio Sample Site POC pH POC pCO2 POC pO2 POC HCO3 POC Total CO2 POC Base Excess ABG pH (Temp Correct) ABG pCO2 (Temp Corrct POC ABG pO2 at Pt Temp POC ABG O2 Sat Sher Test O2 Delivery Device POC O2 Rate POC FiO2 Tidal Volume PEEP POC Sodium Sodium 144 POC Potassium Potassium 3.9 Chloride 114 H Carbon Dioxide 24 Anion Gap 6.0 BUN 35 H Creatinine 1.03 Est Cr Clr Drug Dosing 96.4 Est GFR ( Amer) 91.1 Est GFR (Non-Af Amer) 78.6 BUN/Creatinine Ratio 34.2 H Glucose 142 H POC Glucose 140 H 169 H Calcium 7.1 L Phosphorus 3.2 Magnesium 2.3 Specimen Hemolysis 04/15/21 04/15/21 04/15/21 16:13 18:41 20:07 WBC RBC Hgb POC Hgb Hct POC Hct MCV MCH MCHC RDW Std Deviation RDW Coeff of Sujit Plt Count MPV Immature Gran % (Auto) Neut % (Auto) Lymph % (Auto) [place] % (Auto) Eos % (Auto) Baso % (Auto) Neut # (Auto) Lymph # (Auto) [place] # (Auto) Eos # (Auto) Baso # (Auto) Immature Gran # (Auto) PT INR APTT PTT Ratio Sample Site POC pH POC pCO2 POC pO2 POC HCO3 POC Total CO2 POC Base Excess ABG pH (Temp Correct) ABG pCO2 (Temp Corrct POC ABG pO2 at Pt Temp POC ABG O2 Sat Sher Test O2 Delivery Device POC O2 Rate POC FiO2 Tidal Volume PEEP POC Sodium Sodium 141 POC Potassium Potassium 4.0 Chloride 113 H Carbon Dioxide 28 Anion Gap 0 L BUN 36 H Creatinine 1.10 Est Cr Clr Drug Dosing 90.3 Est GFR ( Amer) 84.1 Est GFR (Non-Af Amer) 72.6 BUN/Creatinine Ratio 32.6 H Glucose 164 H POC Glucose 168 H 178 H Calcium 7.9 L Phosphorus Magnesium Specimen Hemolysis Medications Administered Current Inpatient Medications Acetaminophen (Acetaminophen 500 Mg Tab) 1,000 mg PO Q6H PRN PRN Reason: Fever or headache Stop: 05/05/21 12:50 Last Admin: 04/08/21 20:55 Dose: 1,000 mg Documented by: Albuterol (Albut/Ipratrop 3mg/0.5mg Neb 3 Ml Vial) 3 ml NEB Q4R PRN PRN Reason: Shortness of Breath/Wheezing Stop: 04/19/21 16:45 Amlodipine Besylate (Amlodipine Besylate 5 Mg Tab) 10 mg PO QAM MARCIA Stop: 04/29/21 08:59 Last Admin: 04/15/21 08:08 Dose: 10 mg Documented by: Atropine Sulfate (Atropine Sulfate 0.1 Mg/Ml 10ml Syr) 1 mg IV .KEEP AT BEDSIDE PRN PRN Reason: AT BEDSIDE PLEASE Clonazepam (Clonazepam 0.25 Mg Tab) 0.25 mg PO BID [facility] Stop: 05/15/21 20:59 Last Admin: 04/15/21 20:19 Dose: 0.25 mg Documented by: Dextrose (Dextrose 50% 50 Ml Syringe) 25 - 50 ml IV UD PRN; Protocol PRN Reason: Hypoglycemia Protocol Stop: 05/12/21 10:44 Enoxaparin Sodium (Enoxaparin Inj 40 Mg/0.4 Ml Syr) 40 [facility] [place] Stop: 05/16/21 08:59 Enteral Nutritional Formula (Impact Liqd 1.0 Darrian 1,000 Ml Bag) 1,000 ml GT UD MARCIA; Protocol Stop: 05/10/21 07:59 Last Admin: 04/15/21 08:20 Dose: 1,000 ml Documented by: Glucagon (Glucagon For Inj 1 Mg Vial) 1 mg SQ UD PRN; Protocol PRN Reason: Hypoglycemia Protocol Stop: 05/12/21 10:44 Glucose (Glucose 40% Gel 15 Gm Tube) 15 - 30 gm PO UD PRN; Protocol PRN Reason: Hypoglycemia Protocol Stop: 05/12/21 10:44 Glucose (Glucose 10 Tabs/Tube) 4 - 8 tabs PO UD PRN; Protocol PRN Reason: Hypoglycemia Protocol Stop: 05/12/21 10:44 Hydralazine HCl (Hydralazine Hcl 20 Mg/Ml Vial) 10 mg IV Q6H PRN PRN Reason: hypertension Stop: 05/10/21 20:14 Last Admin: 04/14/21 02:17 Dose: 10 mg Documented by: Levofloxacin/Dextrose (Levaquin/D5w) 750 mg in 150 mls @ 100 mls/hr IV DAILY@10 00 [facility]; Protocol Stop: 04/17/21 10:44 Last Infusion: 04/15/21 20:16 Dose: Infused Documented by: Metronidazole (Flagyl) 500 mg in 100 mls @ 100 mls/hr IV Q8@0200,1000,1800 [facility] Stop: 04/17/21 10:44 Last Infusion: 04/15/21 20:17 Dose: Infused Documented by: Nicardipine HCl 50 mg/ (Dextrose) 250 mls @ 62.5 mls/hr IV .Q4H MARCIA; Protocol Stop: 05/14/21 08:59 Last Admin: 04/15/21 20:42 Dose: Not Given Documented by: Furosemide 100 mg/ Dextrose 100 mls @ 10 mls/hr IV .Q10H MARCIA Stop: 05/15/21 20:29 Last Admin: 04/15/21 20:37 Dose: 10 mg/hr, 10 mls/hr Documented by: Insulin Aspart (Insulin Aspart 100 Units/Ml 3 Ml Pen) 0 units SC Q4 MARCIA Stop: 05/07/21 07:59 Last Admin: 04/15/21 20:11 Dose: 6 units Documented by: Lansoprazole (Lansoprazole 30 Mg Soltab) 30 mg OG BID [facility] Stop: 04/27/21 20:59 Last Admin: 04/15/21 20:19 Dose: 30 mg Documented by: Midazolam HCl (Midazolam Hcl 1 Mg/Ml 2ml Vial) 2 mg IV Q2H PRN PRN Reason: Agitation Stop: 05/14/21 02:18 Last Admin: 04/15/21 22:31 Dose: 2 mg Documented by: Miscellaneous (Carbohydrates For Hypoglycemia ) 15 - 30 gm PO UD PRN PRN Reason: Hypoglycemia Treatment Stop: 05/12/21 10:44 Multi-Ingredient Cream (Artificial Tears Op Oint 3.5 Gm Tube) 1 appln OP Q4 PRN PRN Reason: DRY EYES Stop: 04/26/21 08:59 Sennosides (Sennosides 8.8 Mg/5 Ml Udc) 17.6 mg PO BID PRN PRN Reason: CONSTIPATION Stop: 05/06/21 20:59 Sterile Water (Tube Feeding Water Flush) 250 ml GT Q4H MARCIA Stop: 05/15/21 15:59 Last Admin: 04/15/21 20:19 Dose: 250 ml Documented by: PG Care Time/CCT Total # of Minutes Spent Total Time Spent with Patient: Total time spent is greater than 50% in coordination of care (as documented) at patient's floor/unit and/or counseling patient: Coding Level of Care Code 61981 Subseq Hosp Care Lvl 3 Diagnoses Cerebral parenchymal hemorrhage I61.9 Acute respiratory failure with hypoxia J96.01 AMS (altered mental status) R41.82 Fever R50.9 Bradycardia R00.1 SVT (supraventricular tachycardia) I47.1 Pneumonia due to COVID-19 virus U07.1; J12.82 Hypertension I10 Hypokalemia E87.6 BPH loc w urin obs/LUTS N40.1 Lung abscess J85.2 Pancreatitis K85.90
[2021-04-16] MEDS: IMPACT LIQD 1.0 CAL 1,000 ML BAG GT SCH (00:03)
[2021-04-16] MEDS: ACETAMINOPHEN 500 MG TAB PO PRN (00:51)
[2021-04-16] MEDS: MIDAZOLAM HCL 1 MG/ML 2ML VIAL IV PRN ×3 (01:42→06:57)
[2021-04-16] MEDS: metroNIDAZOLE 500 MG/100 ML BAG IV SCH ×2 (01:43→09:06)
[2021-04-16] MEDS: INSULIN ASPART 100 UNITS/ML 3 ML PEN SC SCH ×6 (03:25→23:45)
[2021-04-16] MEDS: TUBE FEEDING WATER FLUSH GT SCH ×6 (03:26→23:46)
[2021-04-16] MEDS: FUROSEMIDE 100 MG in DEXTROSE 5% 90 ML IV SCH ×2 (04:55→14:15)
[2021-04-16 05:01] LABS: iSTAT Allen Test Pass; iSTAT Arterial Blood Gas HCO3 27 meg/L (19-24); iSTAT Arterial Blood Gas pCO2 43 mmHg (35-46); iSTAT Arterial Blood Gas pO2 55 mmHg (80-95); iSTAT Carbon Dioxide 28 mmol/L (24-31); iSTAT FiO2 50 %; iSTAT Site R Radial
[2021-04-16 05:15] LABS: Basophils # (auto) 0.02 K/uL (0-0.2); Basophils % (auto) 0.2 %; Eosinophils # (auto) 0.23 K/uL (0-0.5); Eosinophils % (auto) 2.1 %; Hematocrit (blood only) 28.1 % (42-52); Immature Granulocytes # (auto) 0.32 K/uL (0.00-0.02); Immature Granulocytes % (auto) 2.9 %; Lymphocytes # (auto) 0.72 K/uL (1.2-3.4); Lymphocytes % (auto) 6.6 %; Mean Corpuscular Hemoglobin 29.7 pg (25-34); Mean Corpuscular Volume 92.7 fL (80-100); Mean Platelet Volume 10.4 fL (7.4-10.4); Monocytes # (auto) 0.87 K/uL (0.11-0.59); Neutrophils # (auto) 8.71 K/uL (1.4-6.5); Neutrophils % (auto) 80.2 %; Nucleated RBC # (auto) 0.02 K/uL (0-0); Nucleated RBC % (auto) 0.2 %; Platelet Count 317 K/uL (130-400); RDW Coefficient of Variation 15.1 % (11.5-14.5); RDW Standard Deviation 51.1 fL (36.4-46.3); Red Blood Count 3.03 M/uL (4.7-6.1); White Blood Count 10.87 K/uL (4.8-10.8)
[2021-04-16 05:39] LABS: BUN Creatinine Ratio 31.4 (10-20); Calcium 7.8 mg/dl (8.5-10.1); Creatinine Clr Calc Pharmacy 78.2 ml/min; Est GFR (African American) 70.7 ml/min; Magnesium 2.1 mg/dl (1.8-2.4); Phosphorus 2.7 mg/dl (2.5-4.9); Potassium 3.4 mmol/L (3.5-5.1)
[2021-04-16] MEDS: POTASSIUM CHLORIDE / WTR 10 MEQ/100 ML PLCT IV SCH ×4 (07:10→11:49)
[2021-04-16] MEDS ORDERED: fentaNYL citrate 100 MCG/2 ML VIAL ONE (07:28)
[2021-04-16] MEDS ORDERED: fentaNYL citrate 100 MCG/2 ML VIAL IV STA (07:48)
[2021-04-16] MEDS ORDERED: fentaNYL citrate 100 MCG/2 ML VIAL IV SCH (08:00)
[2021-04-16] MEDS ORDERED: fentaNYL citrate 100 MCG/2 ML VIAL IV PRN (08:01)
[2021-04-16] MEDS: HYDROmorphone INJ 1 MG/ML SYRINGE IV PRN ×4 (08:02→23:45)
--- NOTE | 2021-04-16 08:55 | Procedure Note ---
Procedure Note Date of Service April 16, 2021 Note PROCEDURE: Consent was obtained from the patient's over the phone. This was witnessed by the nurse. Timeout was performed prior to the procedure. The patient was sedated with as needed fentanyl. The scope was inserted via the tracheostomy. Trachea and jaguar were noted with no obvious abnormalities. Thick white secretions noted bilaterally in the left and right mainstem bronchus which were aspirated. I inspected the bilateral tracheobronchial tree. No obvious lesions seen. Small amounts of thick white mucus noted bilaterally. A BAL was performed in the left lower lobe in the right lower lobe. 60 mL of fluid was instilled in left lower lobe and 60 mL of fluid was instilled in the right lower lobe after wedging the scope Approximately 40 mL combined fluid was aspirated. Patient did have some mild bradycardia during the procedure and his heart rate went down into the 50s. This quickly recovered. No obvious bleeding was seen. The scope was then completely withdrawn. Recommendations: Follow cultures and cytology from bronchial alveolar lavage fluid. Coding CPT Codes Pulmonary/Thoracic - Pulmonary and Thoracic: 85028 Dx bronchoscopy/BAL ([id number]) [facility] [place] Procedure Codes (Charges) Pulmonary/Thoracic Procedure 2: Pulmonary and Thoracic: 20358 Dx bronchoscopy/BAL
--- NOTE | 2021-04-16 08:56 | XRay Report ---
XR chest 1V portable CLINICAL HISTORY: f/u COMPARISON STUDY: Chest CT April 09, 2021. Chest radiograph April 15, 2021. FINDINGS: Tracheostomy tube is in place. Tip of feeding tube is within the body of the stomach. There is no pneumothorax. Small right pleural effusion is similar to prior exam. Extensive bilateral airsp kath opacities persist. Cardiomegaly is unchanged. IMPRESSION: 1. Satisfactory positioning of lines and tubes. 2. No significant change in a small right pleural effusion and extensive bilateral airspace opacities . ACT 112: Negative or not required by law. Electronically signed by: Floyd Neal M.D. 04/16/2021 8:55 AM
--- NOTE | 2021-04-16 08:57 | Critical Care Progress Note ---
Date of Service April 16, 2021 Assessment & Plan (1) Acute respiratory failure with hypoxia: Plan: Reason Critically Ill: 61-year-old male with past medical history of hypertension admitted to the hospital for COVID-19 pneumonia and acute hypoxic respiratory failure, intubated 03/27/2021 PLAN: NEURO: EEG without epileptiform activity. MRI brain 04/14/2021 with no significant change in the 5 mm hemorrhagic focus within the periventricular right frontoparietal region. Brain MRA 04/14/2021 unremarkable. Maintain systolic blood pressures 140-160 per neurology. Appreciate neurology consultation. Echo without findings of embolic phenomenon. Okay to restart DVT ppx per neuro. he likely has a component of opiate withdrawal. As needed fentanyl 50 mcg every 30 minutes and 1 mg Dilaudid every 2 hours started with improvement of respiratory rate and blood pressure. RESPIRATORY: VDRF with acute hypoxic respiratory failure, secondary to multilobar COVID-19 pneumonia - COVID-19 PCR positive 03/16/2021, remains positive as of 04/07/21 - S/p Tocilizumab 03/21/2021 - Intubated 03/27/2021; tracheostomy performed 04/05/21 - Continue with lung protective ventilation -Continue pressure support as able. ARDS net high-dose steroid protocol - Dexamethasone 20mg x5 days, 10mg x5 days -- completed on 04/06 Pneumomediastinum--> resolved Lung abscess on CT 04/09 Right-sided pleural effusion -Status post thoracentesis 04/09; cultures negative thus far. Status post bronchoscopy 04/16/2021. Cultures and cytology sent for BAL fluid. Mild to moderate amount of thick white secretions noted and aspirated. [id number] ultrasound performed of the right pleural effusion 04/16/2021. Loculation seen. Effusion small. He has a very high respiratory drive secondary to underlying fibrotic ARDS and opiate withdrawal. CARDIOVASCULAR: Paroxysmal atrial fibrillation with RVR: Currently normal sinus rhythm. Episode of SVT evening of 04/07, 04/09: Resolved Intermittent episodes of bradycardia noted with suctioning. EKG checked 04/12/2021. QTc interval 495 ms. Metoprolol on hold due to episodes of bradycardia. Continue calcium channel bl ocker. Losartan added. Nicardipine is being weaned off. ID: Lung abscess- will require 4 to 6 weeks of antibiotic therapy for the pulmonary abscess. - Sputum cultures with Group G Beta strep. Repeat sputum cultures negative thus far. Bacteremia - Repeat blood cultures 04/08 with 1 bottle growing coag negative staph: Suspect contaminant -Repeat blood cultures remain negative Cultures from BAL fluid sent 04/16/2021. GI/Nutrition: Transaminitis -resolved Elevated lipase: Resolved Necrotizing pancreatitis Continue tube feeds. Renal: Hypernatremia resolved. Initiated on Lasix drip 04/15/2021. Diuresing well. We will try to minimize fluid intake via IVs. He is still profoundly hypervolemic. Replacing them. Will check BMP at 2 PM. Heme: Anemia secondary to bone marrow suppression of disease process Endocrine: ICU hyperglycemia protocol --Prophylaxis VTE: Lovenox for DVT prophylaxis restarted 04/16/2021. GI: Lansoprazole Lines: Sue AJ Patient's Mrs. Emperatriz Neri [phone]. She was updated this morning. Overall prognosis very guarded. Palliative care consult appreciated. (2) Pneumonia due to COVID-19 virus: (3) Pulmonary abscess: (4) AMS (altered mental status): (5) Cerebral parenchymal hemorrhage: (6) Encephalopathy: (7) Hypernatremia: Admission and Anticipated Discharge Date Admission Date: March 20, 2021 Subjective Patient seen and examined. He is very tachypneic in the 40s this morning. He appears anxious. He does follow commands. He is currently on 50% FiO2 and PEEP of 8. No significant overnight events. Review of Systems Review of Systems: Unobtainable due to endotracheal tube Physical Exam Physical Exam: General: Appears lethargic is tachypneic. Mild distress. Skin: Warm, dry, Head: Nontraumatic. Ears, nose, mouth and throat: Tracheostomy in place. No obvious deformities. Cardiovascular: Normal peripheral perfusion Respiratory: Coarse sounds bilaterally. Tachypneic. Gastrointestinal: Non distended. Soft. Musculoskeletal: No deformity, 3-4+ pitting edema bilaterally Neurologic: Follows commands. Very weak diffusely. No obvious deficits aside for severe weakness. Results & Data Results & Data ([facility]) Vital Signs (Past 12 Hours) Vital Signs Temp Pulse Resp BP Pulse Ox 04/16/21 08:42 100.0 F H 98 H 113/79 98 04/16/21 08:12 99.9 F H 77 157/66 H 95 04/16/21 07:45 30 H 04/16/21 07:42 99.5 F 89 167/84 H 96 04/16/21 07:19 89 41 H 90 04/16/21 07:12 99.3 F 100 H 155/72 H 93 04/16/21 05:57 99.7 F H 91 H 145/67 H 90 04/16/21 05:42 99.7 F H 85 111/76 90 04/16/21 05:12 99.5 F 96 H 196/72 H 91 04/16/21 04:42 100.2 F H 60 199/88 H 89 L 04/16/21 04:40 70 44 H 89 L 04/16/21 04:12 100.2 F H 77 136/57 L 94 04/16/21 03:42 100.4 F H 75 131/56 L 92 04/16/21 03:12 100.4 F H 75 144/54 H 92 04/16/21 02:42 100.4 F H 80 125/48 L 91 04/16/21 02:12 100.4 F H 84 125/52 L 90 04/16/21 01:31 100.4 F H 83 169/66 H 93 04/16/21 01:10 87 35 H 92 04/16/21 01:05 100.6 F H 92 H 187/68 H 92 04/16/21 00:42 100.8 F H 79 160/60 H 93 04/16/21 00:16 83 04/16/21 00:12 100.6 F H 81 168/54 H 93 04/15/21 23:42 100.4 F H 79 128/61 92 04/15/21 23:12 100.4 F H 84 140/59 L 92 04/15/21 22:34 100.2 F H 93 H 176/65 H 92 04/15/21 22:12 100.4 F H 71 42 H 142/62 H 90 04/15/21 21:42 100.2 F H 75 153/64 H 97 04/15/21 21:12 100.0 F H 78 144/60 H 95 Vital signs, labs and imaging reviewed Coding Level of Care Code 30413 Subseq Hosp Care Lvl 3 Diagnoses Acute respiratory failure with hypoxia J96.01 Pneumonia due to COVID-19 virus U07.1; J12.82 Pulmonary abscess J85.2 AMS (altered mental status) R41.82 Cerebral parenchymal hemorrhage I61.9 Encephalopathy G93.40 Hypernatremia E87.0
[2021-04-16] MEDS ORDERED: ENOXAPARIN INJ 40 MG/0.4 ML SYR SQ SCH (09:00)
[2021-04-16] MEDS: LOSARTAN POTASSIUM 50 MG TAB PO SCH (09:06)
[2021-04-16] MEDS: amLODIPine BESYLATE 5 MG TAB PO SCH (09:07)
[2021-04-16] MEDS: LANSOPRAZOLE 30 MG SOLTAB OG SCH ×2 (09:07→19:49)
[2021-04-16] MEDS: clonazePAM 0.25 MG TAB PO SCH ×2 (09:08→19:50)
[2021-04-16 10:07] LABS: Eosinophil Body Fluid Man 6 %; Fluid Mono/Macrophage 21 %; Lymphocyte Body Fluid Man 4 %; Neutrophil Body Fluid Man 69 %
[2021-04-16] MEDS ORDERED: CHLOROTHIAZIDE SODIUM 500 MG in DEXTROSE 5% 50 ML IV ONE (10:15)
[2021-04-16] MEDS: ENOXAPARIN INJ 40 MG/0.4 ML SYR SQ SCH (10:42)
[2021-04-16] MEDS: levoFLOXacin/D5W 750 MG/150 ML BAG IV SCH (11:08)
[2021-04-16] MEDS ORDERED: POTASSIUM CHLORIDE 20 MEQ/15 ML UDC PO SCH (11:30)
--- NOTE | 2021-04-16 12:28 | Hospitalist Progress Note ---
Date of Service April 16, 2021 Assessment & Plan (1) Acute respiratory failure with hypoxia: Plan: due to COVID 19 pneumonia, bilateral infiltrates on CXR Was requiring prone positioning and BiPAP while awake, but then weaned down to wall high flow nasal cannula at 11-15 L on 03/23 However, on 03/24 worsened again was placed back on Vapotherm high flow nasal cannula On 03/25, requiring higher amounts of oxygen at 40 L and up to 80 % FiO2 to maintain pulse ox 90-91% On 03/26 switched to Ventilator HFNC at 60L, 100% FiO2 to keep POx>88%---> continued to decompensate on the morning of 03/27 and was intubated and proned He was not a candidate for ECMO Previously had pneumomediastinum which is now resolved Status post tocilizumab on 03/21 Completed a course of high-dose dexamethasone initially with 10 mg daily and then on 03/28, increased to 20 mg daily x5 days, then 10 mg daily x5 days Ventilator management as per sharepoint net developer status post tracheostomy on 04/05 currently on assist control, breathing in low to mid 30s off of all scheduled sedation starting Klonopin for anxiety Dilaudid for pain control Lasix drip to provide diuresis, try to help oxygenation (2) AMS (altered mental status): Plan: ongoing issue, but improving etiologies include: ICU delirium, hypernatremia, fevers, infection, elevated ammonia he opens his eyes to command, squeezes hand on command which is improvement, now wiggling toes on command ammonia was > 40, started on lactulose, now stopped Na is down to normal, peaked at 157 on Thursday 04/12 fevers? infection is covered, could be central fevers with small parenchymal hemorrhage all sedation is off at this point, adding low dose Klonopin for anxiety (3) Fever: Plan: Fevers started on 04/02, then resolved UA normal on 04/02 CXR with persistent infiltrates, sputum culture with group C beta strep blood cultures - no growth from 04/02, but blood cultures positive on 04/09 for coagulase-negative Staphylococcus in 1/2 sets-likely contaminant Blood cultures 04/10-no growth to date He then continued with persistent fevers from 04/05-04/10 acute sinusitis/large mastoid effusions seen on MRI brain possible right lung abscess on CT chest on 04/09--negative AFB, culture no growth to date right pleural effusion - thoracentesis, pleural culture negative Central and arterial lines have been removed and replaced with peripheral IVs Dopplers of lower extremities negative for DVT CT chest/abdomen/pelvis significant for lung abscess, necrotizing pancreatitis but lipase normal MRIs of cervical/thoracic/lumbar spine without epidural abscess or discitis MRSA swab remains negative - continue Levaquin and Flagyl, was started 04/07, will need 4 weeks to treat possible lung abscess echo: EF 70%, no vegetations, normal valves (4) Cerebral parenchymal hemorrhage: Plan: new finding on CT head on 04/13 small, 5mm area right parietal lobe, also with trace subarachnoid hemorrhage left frontal lobe repeat head CT 04/13 and 04/14 with stable hemorrhage neurology consulted, likely bleed in setting of hypertension, Lovenox MRI brain and MRA brain on 04/14: unchanged right 5mm parenchymal hemorrhage, normal angiography no further imaging planned unless mental status changes (5) Bradycardia: Plan: with sinus terry initially while on BIPAP prior to intubation HR dropped to 20's on 04/12, required atropine, pacer pads on stop metoprolol due to frequent pauses (6) SVT (supraventricular tachycardia): Plan: Had SVT to the 200s on the evening of 04/07 with associated hypotension requiring esmolol, amiodarone, adenosine x3, synchronized cardioversion x5 Also had further atrial fibrillation on 04/07 and again on the night of 04/09 Now back in normal sinus rhythm stope metoprolol 25mg BID due to pauses Continue to replace electrolytes as needed (7) Pneumonia due to COVID-19 virus: Plan: As above still requiring mechanical ventilation, now status post tracheostomy remove from neg pressure isolation 04/15 (8) Hypertension: Plan: Now with significant hypertension amlodipine 10mg daily (9) Hypokalemia: Plan: monitor daily, ICU replacement protocol (10) BPH loc w urin obs/LUTS: Plan: Rogers catheter in place (11) Lung abscess: Plan: As above Status post aspiration Follow cultures-no growth to date Continue levofloxacin, metronidazole for several weeks (12) Pancreatitis: Plan: Visualized on CT of the abdomen with suspected necrotizing pancreatitis Lipase normal, triglycerides improving Difficult to tell patient is having pain Continue tube feeds Plan: DVT prophylaxis: SCD, Lovenox stopped due to intraparenchymal bleeding Disposition: Continued stay in ICU, very guarded prognosis CODE STATUS: conditional code with no compressions Admission and Anticipated Discharge Date Admission Date: March 20, 2021 Subjective patient remains alert, following commands, Dr. Montes providing a little more pain control to help with ventilator had bronchoscopy today discussed in ICU with Dr. Montes and Dr. Sanchez (palliative care) they have offered chance to visit, she might come in tomorrow reviewed labs Review of Systems Review of Systems: All systems reviewed & are unremarkable except as noted in Subjective Physical Exam Constitutional: well developed, + obese and + mechanically ventilated (tracheostomy); no acute distress Neck: trachea midline, no thyromegaly + tracheostomy present Respiratory: + tachypneic and symmetric chest movement (ventilated, supine position) Auscultation: no crackles, no rales, no rhonchi and no wheezes Cardiovascular: RRR, no murmur, no edema Gastrointestinal (Abdomen): normal bowel sounds, soft, nontender, no hepatosplenomegaly Musculoskeletal: no cyanosis or clubbing, extremities motor strength 5/5 Head/Neck/Chest: normocephalic, head atraumatic and neck supple Extremities: extremities normal to inspection; no cyanosis, no clubbing and no petechiae Skin: no rashes, warm and dry Neurologic: CN's II-XI intact bilaterally and awake (opens eyes to command); no focal motor deficits (squeezes hands appropriately) Speech / Cognition: + abnormal speech (has tracheostomy) Motor/Sensory: no tremor and no fasciculations Psychiatric: Orientation: alert Results & Data Results & Data ([facility]) Vital Signs (Past 12 Hours) Vital Signs Temp Pulse Resp BP Pulse Ox 04/16/21 11:42 38.0 C H 88 162/63 H 95 04/16/21 11:12 37.9 C H 84 140/68 93 04/16/21 11:02 82 37 H 94 04/16/21 10:42 37.9 C H 94 H 145/68 H 93 04/16/21 10:12 38.0 C H 88 150/73 H 95 04/16/21 09:42 38.0 C H 79 120/68 93 04/16/21 09:12 38.0 C H 62 160/72 H 89 L 04/16/21 08:42 37.8 C H 98 H 113/79 98 04/16/21 08:12 37.7 C H 77 157/66 H 95 04/16/21 07:45 30 H 04/16/21 07:42 37.5 C 89 167/84 H 96 04/16/21 07:19 89 41 H 90 04/16/21 07:12 37.4 C 100 H 155/72 H 93 04/16/21 05:57 37.6 C H 91 H 145/67 H 90 04/16/21 05:42 37.6 C H 85 111/76 90 04/16/21 05:12 37.5 C 96 H 196/72 H 91 04/16/21 04:42 37.9 C H 60 199/88 H 89 L 04/16/21 04:40 70 44 H 89 L 04/16/21 04:12 37.9 C H 77 136/57 L 94 04/16/21 03:42 38.0 C H 75 131/56 L 92 04/16/21 03:12 38.0 C H 75 144/54 H 92 04/16/21 02:42 38.0 C H 80 125/48 L 91 04/16/21 02:12 38.0 C H 84 125/52 L 90 04/16/21 01:31 38.0 C H 83 169/66 H 93 04/16/21 01:10 87 35 H 92 04/16/21 01:05 38.1 C H 92 H 187/68 H 92 04/16/21 00:42 38.2 C H 79 160/60 H 93 Laboratory Results Laboratory Results - last 24 hr 04/15/21 04/15/21 04/15/21 12:20 16:13 18:41 WBC RBC Hgb Hct MCV MCH MCHC RDW Std Deviation RDW Coeff of Sujit Plt Count MPV Immature Gran % (Auto) Neut % (Auto) Lymph % (Auto) [place] % (Auto) Eos % (Auto) Baso % (Auto) Neut # (Auto) Lymph # (Auto) [place] # (Auto) Eos # (Auto) Baso # (Auto) Immature Gran # (Auto) Absolute Nucleated RBC Nucleated RBC % (auto) Sample Site POC pH POC pCO2 POC pO2 POC HCO3 POC Total CO2 POC Base Excess POC ABG O2 Sat Sher Test O2 Delivery Device POC O2 Rate Minute Ventilation POC FiO2 Tidal Volume PEEP Sodium 141 Potassium 4.0 Chloride 113 H Carbon Dioxide 28 Anion Gap 0 L BUN 36 H Creatinine 1.10 Est Cr Clr Drug Dosing 90.3 Est GFR ( Amer) 84.1 Est GFR (Non-Af Amer) 72.6 BUN/Creatinine Ratio 32.6 H Glucose 164 H POC Glucose 169 H 168 H Calcium 7.9 L Phosphorus Magnesium Specimen Hemolysis Fluid Neutrophils % Fluid Lymphocytes % Fluid Eosinophils % Fl Monocyt/Macrophag % Fluid Comment Resp Virus Cult Rapid Viral Specimen Source 04/15/21 04/15/21 04/16/21 20:07 23:56 03:24 WBC RBC Hgb Hct MCV MCH MCHC RDW Std Deviation RDW Coeff of Sujit Plt Count MPV Immature Gran % (Auto) Neut % (Auto) Lymph % (Auto) [place] % (Auto) Eos % (Auto) Baso % (Auto) Neut # (Auto) Lymph # (Auto) [place] # (Auto) Eos # (Auto) Baso # (Auto) Immature Gran # (Auto) Absolute Nucleated RBC Nucleated RBC % (auto) Sample Site POC pH POC pCO2 POC pO2 POC HCO3 POC Total CO2 POC Base Excess POC ABG O2 Sat Sher Test O2 Delivery Device POC O2 Rate Minute Ventilation POC FiO2 Tidal Volume PEEP Sodium Potassium Chloride Carbon Dioxide Anion Gap BUN Creatinine Est Cr Clr Drug Dosing Est GFR ( Amer) Est GFR (Non-Af Amer) BUN/Creatinine Ratio Glucose POC Glucose 178 H 190 H 181 H Calcium Phosphorus Magnesium Specimen Hemolysis Fluid Neutrophils % Fluid Lymphocytes % Fluid Eosinophils % Fl Monocyt/Macrophag % Fluid Comment Resp Virus Cult Rapid Viral Specimen Source 04/16/21 04/16/21 04/16/21 04:46 04:53 04:53 WBC 10.87 H RBC 3.03 L Hgb 9.0 L Hct 28.1 L MCV 92.7 MCH 29.7 MCHC 32.0 RDW Std Deviation 51.1 H RDW Coeff of Sujit 15.1 H Plt Count 317 MPV 10.4 Immature Gran % (Auto) 2.9 Neut % (Auto) 80.2 Lymph % (Auto) 6.6 [place] % (Auto) 8.0 Eos % (Auto) 2.1 Baso % (Auto) 0.2 Neut # (Auto) 8.71 H Lymph # (Auto) 0.72 L [place] # (Auto) 0.87 H Eos # (Auto) 0.23 Baso # (Auto) 0.02 Immature Gran # (Auto) 0.32 H Absolute Nucleated RBC 0.02 H Nucleated RBC % (auto) 0.2 Sample Site R Radial POC pH 7.40 POC pCO2 43 POC pO2 55 L POC HCO3 27 H POC Total CO2 28 POC Base Excess 2.0 H POC ABG O2 Sat 88.0 L Sher Test Pass O2 Delivery Device Ventilator POC O2 Rate 30 Minute Ventilation 19.2 POC FiO2 50 Tidal Volume 470 PEEP 8 Sodium 141 Potassium 3.4 L Chloride 109 H Carbon Dioxide 29 Anion Gap 3.0 BUN 40 H Creatinine 1.27 Est Cr Clr Drug Dosing 78.2 Est GFR ( Amer) 70.7 Est GFR (Non-Af Amer) 61.0 BUN/Creatinine Ratio 31.4 H Glucose 158 H POC Glucose Calcium 7.8 L Phosphorus 2.7 Magnesium 2.1 Specimen Hemolysis Fluid Neutrophils % Fluid Lymphocytes % Fluid Eosinophils % Fl Monocyt/Macrophag % Fluid Comment Resp Virus Cult Rapid Viral Specimen Source 04/16/21 04/16/21 04/16/21 08:06 08:30 08:30 WBC RBC Hgb Hct MCV MCH MCHC RDW Std Deviation RDW Coeff of Sujit Plt Count MPV Immature Gran % (Auto) Neut % (Auto) Lymph % (Auto) [place] % (Auto) Eos % (Auto) Baso % (Auto) Neut # (Auto) Lymph # (Auto) [place] # (Auto) Eos # (Auto) Baso # (Auto) Immature Gran # (Auto) Absolute Nucleated RBC Nucleated RBC % (auto) Sample Site POC pH POC pCO2 POC pO2 POC HCO3 POC Total CO2 POC Base Excess POC ABG O2 Sat Sher Test O2 Delivery Device POC O2 Rate Minute Ventilation POC FiO2 Tidal Volume PEEP Sodium Potassium Chloride Carbon Dioxide Anion Gap BUN Creatinine Est Cr Clr Drug Dosing Est GFR ( Amer) Est GFR (Non-Af Amer) BUN/Creatinine Ratio Glucose POC Glucose 174 H Calcium Phosphorus Magnesium Specimen Hemolysis Fluid Neutrophils % 69 Fluid Lymphocytes % 4 Fluid Eosinophils % 6 Fl Monocyt/Macrophag % 21 Fluid Comment Resp Virus Cult Rapid Pending Viral Specimen Source Pending 04/16/21 12:11 WBC RBC Hgb Hct MCV MCH MCHC RDW Std Deviation RDW Coeff of Sujit Plt Count MPV Immature Gran % (Auto) Neut % (Auto) Lymph % (Auto) [place] % (Auto) Eos % (Auto) Baso % (Auto) Neut # (Auto) Lymph # (Auto) [place] # (Auto) Eos # (Auto) Baso # (Auto) Immature Gran # (Auto) Absolute Nucleated RBC Nucleated RBC % (auto) Sample Site POC pH POC pCO2 POC pO2 POC HCO3 POC Total CO2 POC Base Excess POC ABG O2 Sat Sher Test O2 Delivery Device POC O2 Rate Minute Ventilation POC FiO2 Tidal Volume PEEP Sodium Potassium Chloride Carbon Dioxide Anion Gap BUN Creatinine Est Cr Clr Drug Dosing Est GFR ( Amer) Est GFR (Non-Af Amer) BUN/Creatinine Ratio Glucose POC Glucose 137 H Calcium Phosphorus Magnesium Specimen Hemolysis Fluid Neutrophils % Fluid Lymphocytes % Fluid Eosinophils % Fl Monocyt/Macrophag % Fluid Comment Resp Virus Cult Rapid Viral Specimen Source Medications Administered Current Inpatient Medications Acetaminophen (Acetaminophen 500 Mg Tab) 1,000 mg PO Q6H PRN PRN Reason: Fever or headache Stop: 05/05/21 12:50 Last Admin: 04/16/21 00:51 Dose: 1,000 mg Documented by: Albuterol (Albut/Ipratrop 3mg/0.5mg Neb 3 Ml Vial) 3 ml NEB Q4R PRN PRN Reason: Shortness of Breath/Wheezing Stop: 04/19/21 16:45 Amlodipine Besylate (Amlodipine Besylate 5 Mg Tab) 10 mg PO QAM MARCIA Stop: 04/29/21 08:59 Last Admin: 04/16/21 09:07 Dose: 10 mg Documented by: Atropine Sulfate (Atropine Sulfate 0.1 Mg/Ml 10ml Syr) 1 mg IV .KEEP AT BEDSIDE PRN PRN Reason: AT BEDSIDE PLEASE Clonazepam (Clonazepam 0.25 Mg Tab) 0.25 mg PO BID MARCIA Stop: 05/15/21 20:59 Last Admin: 04/16/21 09:08 Dose: 0.25 mg Documented by: Dextrose (Dextrose 50% 50 Ml Syringe) 25 - 50 ml IV UD PRN; Protocol PRN Reason: Hypoglycemia Protocol Stop: 05/12/21 10:44 Enoxaparin Sodium (Enoxaparin Inj 40 Mg/0.4 Ml Syr) 40 mg SQ QAM MARCIA Stop: 05/16/21 09:14 Last Admin: 04/16/21 10:42 Dose: 40 mg Documented by: Enteral Nutritional Formula (Impact Liqd 1.0 Darrian 1,000 Ml Bag) 1,000 ml GT UD MARCIA; Protocol Stop: 05/10/21 07:59 Last Admin: 04/16/21 00:03 Dose: 1,000 ml Documented by: Fentanyl Citrate (Fentanyl Citrate 100 Mcg/2 Ml Vial) 50 mcg IV Q30M PRN PRN Reason: pain unrelieved by Dilaudid Stop: 04/30/21 08:00 Last Admin: 04/16/21 08:38 Dose: 50 mcg Documented by: Glucagon (Glucagon For Inj 1 Mg Vial) 1 mg SQ UD PRN; Protocol PRN Reason: Hypoglycemia Protocol Stop: 05/12/21 10:44 Glucose (Glucose 40% Gel 15 Gm Tube) 15 - 30 gm PO UD PRN; Protocol PRN Reason: Hypoglycemia Protocol Stop: 05/12/21 10:44 Glucose (Glucose 10 Tabs/Tube) 4 - 8 tabs PO UD PRN; Protocol PRN Reason: Hypoglycemia Protocol Stop: 05/12/21 10:44 Hydralazine HCl (Hydralazine Hcl 20 Mg/Ml Vial) 10 mg IV Q6H PRN PRN Reason: hypertension Stop: 05/10/21 20:14 Last Admin: 04/14/21 02:17 Dose: 10 mg Documented by: Hydromorphone HCl (Hydromorphone Inj 1 Mg/Ml Syringe) 1 mg IV Q2H PRN PRN Reason: Pain Stop: 04/30/21 07:48 Last Admin: 04/16/21 08:02 Dose: 1 mg Documented by: Levofloxacin/Dextrose (Levaquin/D5w) 750 mg in 150 mls @ 100 mls/hr IV DAILY@1000 MARCIA; Protocol Stop: 04/16/21 14:00 Last Infusion: 04/16/21 12:24 Dose: Infused Documented by: Nicardipine HCl 50 mg/ (Dextrose) 250 mls @ 62.5 mls/hr IV .Q4H MARCIA; Protocol Stop: 05/14/21 08:59 Last Admin: 04/16/21 12:07 Dose: Not Given Documented by: Furosemide 100 mg/ Dextrose 100 mls @ 10 mls/hr IV .Q10H MARCIA Stop: 05/15/21 20:29 Last Admin: 04/16/21 04:55 Dose: 10 mg/hr, 10 mls/hr Documented by: Insulin Aspart (Insulin Aspart 100 Units/Ml 3 Ml Pen) 0 units SC Q4 MARCIA Stop: 05/07/21 07:59 Last Admin: 04/16/21 12:19 Dose: 4 units Documented by: Lansoprazole (Lansoprazole 30 Mg Soltab) 30 mg OG BID [facility] Stop: 04/27/21 20:59 Last Admin: 04/16/21 09:07 Dose: 30 mg Documented by: Levofloxacin (Levofloxacin 750 Mg Tab) 750 mg PO QAM [facility]; Protocol Stop: 05/04/21 09:01 Losartan Potassium (Losartan Potassium 50 Mg Tab) 100 mg PO QAM [facility] Stop: 05/16/21 08:59 Last Admin: 04/16/21 09:06 Dose: 100 mg Documented by: Metronidazole (Metronidazole 500 Mg Tab) 500 mg PO Q8H [facility]; Protocol Stop: 05/05/21 00:01 Midazolam HCl (Midazolam Hcl 1 Mg/Ml 2ml Vial) 2 mg IV Q2H PRN PRN Reason: Agitation Stop: 05/14/21 02:18 Last Admin: 04/16/21 06:57 Dose: 2 mg Documented by: Miscellaneous (Carbohydrates For Hypoglycemia ) 15 - 30 gm PO UD PRN PRN Reason: Hypoglycemia Treatment Stop: 05/12/21 10:44 Multi-Ingredient Cream (Artificial Tears Op Oint 3.5 Gm Tube) 1 appln OP Q4 PRN PRN Reason: DRY EYES Stop: 04/26/21 08:59 Nystatin (Nystatin Susp 500,000 U/5 Ml Udc) 10 ml PO TID [facility] Stop: 04/26/21 13:59 Potassium Chloride (Potassium Chloride 20 Meq/15 Ml Udc) 40 meq PO TODAY@1130 [facility] Stop: 04/16/21 14:30 Last Admin: 04/16/21 12:07 Dose: 40 meq Documented by: Sennosides (Sennosides 8.8 Mg/5 Ml Udc) 17.6 mg PO BID PRN PRN Reason: CONSTIPATION Stop: 05/06/21 20:59 Sterile Water (Tube Feeding Water Flush) 250 ml GT Q4H [facility] Stop: 05/15/21 15:59 Last Admin: 04/16/21 12:07 Dose: 250 ml Documented by: PG Care Time/CCT Total # of Minutes Spent Total Time Spent with Patient: Total time spent is greater than 50% in coordination of care (as documented) at patient's floor/unit and/or counseling patient: Coding Level of Care Code 82021 Subseq Hosp Care Lvl 2 Diagnoses Cerebral parenchymal hemorrhage I61.9 Acute respiratory failure with hypoxia J96.01 AMS (altered mental status) R41.82 Fever R50.9 Bradycardia R00.1 SVT (supraventricular tachycardia) I47.1 Pneumonia due to COVID-19 virus U07.1; J12.82 Hypertension I10 Hypokalemia E87.6 BPH loc w urin obs/LUTS N40.1 Lung abscess J85.2 Pancreatitis K85.90
[2021-04-16] MEDS: hydrALAZINE HCL 20 MG/ML VIAL IV PRN (12:52)
[2021-04-16] MEDS: NYSTATIN SUSP 500,000 U/5 ML UDC PO SCH ×2 (13:24→19:49)
[2021-04-16 14:58] LABS: BUN Creatinine Ratio 30.6 (10-20); Calcium 7.9 mg/dl (8.5-10.1); Creatinine Clr Calc Pharmacy 75.7 ml/min; Est GFR (African American) 65.1 ml/min; Est GFR (Non-African American) 56.2 ml/min; Potassium 3.7 mmol/L (3.5-5.1)
[2021-04-16] MEDS: PEPTAMEN 1.5 CAL 1,000 ML BAG NG SCH (16:25)
[2021-04-16] MEDS: metroNIDAZOLE 500 MG TAB PO SCH ×2 (16:27→23:46)
[2021-04-16] MEDS ORDERED: POTASSIUM CHLORIDE 20 MEQ/15 ML UDC PO STA (16:39)
[2021-04-16 23:30] LABS: Fungitell (1-3)-B-D-Glucan 53 pg/mL
[2021-04-17] MEDS: FUROSEMIDE 100 MG in DEXTROSE 5% 90 ML IV SCH ×2 (01:18→10:57)
[2021-04-17] MEDS: INSULIN ASPART 100 UNITS/ML 3 ML PEN SC SCH ×5 (04:09→23:47)
[2021-04-17] MEDS: HYDROmorphone INJ 1 MG/ML SYRINGE IV PRN ×3 (04:15→22:46)
[2021-04-17 05:17] LABS: iSTAT Allen Test Pass; iSTAT Arterial Blood Gas HCO3 34 meg/L (19-24); iSTAT Arterial Blood Gas pCO2 49 mmHg (35-46); iSTAT Arterial Blood Gas pH 7.44 (7.35-7.45); iSTAT Arterial Blood Gas pO2 59 mmHg (80-95); iSTAT Carbon Dioxide 35 mmol/L (24-31); iSTAT FiO2 40 %; iSTAT Site R Radial
[2021-04-17 05:29] LABS: Basophils # (auto) 0.01 K/uL (0-0.2); Basophils % (auto) 0.1 %; Eosinophils % (auto) 1.7 %; Hematocrit (blood only) 28.8 % (42-52); Immature Granulocytes # (auto) 0.25 K/uL (0.00-0.02); Immature Granulocytes % (auto) 2.1 %; Lymphocytes # (auto) 0.82 K/uL (1.2-3.4); Lymphocytes % (auto) 6.8 %; Mean Corpuscular Hemoglobin 29.6 pg (25-34); Mean Corpuscular Hgb Conc 31.3 g/dL (32-36); Mean Corpuscular Volume 94.7 fL (80-100); Mean Platelet Volume 10.4 fL (7.4-10.4); Monocytes # (auto) 0.72 K/uL (0.11-0.59); Neutrophils # (auto) 9.99 K/uL (1.4-6.5); Neutrophils % (auto) 83.3 %; Platelet Count 384 K/uL (130-400); RDW Coefficient of Variation 15.4 % (11.5-14.5); RDW Standard Deviation 52.5 fL (36.4-46.3); Red Blood Count 3.04 M/uL (4.7-6.1); White Blood Count 11.99 K/uL (4.8-10.8)
[2021-04-17] MEDS: TUBE FEEDING WATER FLUSH GT SCH ×4 (06:15→23:48)
[2021-04-17 06:22] LABS: BUN Creatinine Ratio 30.9 (10-20); Creatinine Clr Calc Pharmacy 76.3 ml/min; Est GFR (African American) 67.5 ml/min; Est GFR (Non-African American) 58.2 ml/min; Magnesium 2.1 mg/dl (1.8-2.4); Phosphorus 3.9 mg/dl (2.5-4.9); Potassium 3.1 mmol/L (3.5-5.1)
--- NOTE | 2021-04-17 07:33 | XRay Report ---
XR chest 1V portable CLINICAL HISTORY: f/u COMPARISON STUDY: Chest radiograph April 16, 2021. FINDINGS: Endotracheal tube is in place. Tip of feeding tube is below the lower aspect of this image but at least within the body of the stomach. A small right pleural effusion is noted. Cardiomegaly is unchanged. Extensive bilateral airspace opacities are similar to prior exam. IMPRESSION: 1. Satisfactory positioning of lines and tubes. 2. No change in extensive bilateral airspace opacities and a small right pleural effusion. ACT 112: Negative or not required by law. Electronically signed by: Floyd Neal M.D. 04/17/2021 7:32 AM
[2021-04-17] MEDS ORDERED: [UNRECOGNIZED DRUG - REMARK] ONE (08:00)
--- NOTE | 2021-04-17 08:08 | Critical Care Progress Note ---
Date of Service April 17, 2021 Assessment & Plan (1) Acute respiratory failure with hypoxia: Plan: Reason Critically Ill: 61-year-old male with past medical history of hypertension admitted to the hospital for COVID-19 pneumonia and acute hypoxic respiratory failure, intubated 03/27/2021 PLAN: NEURO: Awake and alert. Following simple commands EEG without epileptiform activity. MRI brain 04/14/2021 with no significant change in the 5 mm hemorrhagic focus within the periventricular right frontoparietal region. Brain MRA 04/14/2021 unremarkable. Maintain systolic blood pressures 140-160 per neurology. Appreciate neurology consultation. Echo without findings of embolic phenomenon. Continue with benzodiazepine every 12, fentanyl as needed for opioid withdrawal RESPIRATORY: VDRF with acute hypoxic respiratory failure, secondary to multilobar COVID-19 pneumonia - COVID-19 PCR positive 03/16/2021, remains positive as of 04/07/21 - S/p Tocilizumab 03/21/2021 - Intubated 03/27/2021; tracheostomy performed 04/05/21 -Continue pressure support as able. S/p ARDS net high-dose steroid protocol - Dexamethasone 20mg x5 days, 10mg x5 days -- completed on 04/06 Pneumomediastinum--> resolved Lung abscess on CT 04/09 Right-sided pleural effusion -Status post thoracentesis 04/09; cultures negative thus far. Status post bronchoscopy 04/16/2021. Cultures and cytology sent for BAL fluid. Mild to moderate amount of thick white secretions noted and aspirated. [id number] ultrasound performed of the right pleural effusion 04/16/2021. Loculation seen. Effusion small. He has a very high respiratory drive secondary to underlying fibrotic ARDS and opiate withdrawal. CARDIOVASCULAR: Paroxysmal atrial fibrillation with RVR: Currently normal sinus rhythm. Episode of SVT evening of 04/07, 04/09: Resolved Intermittent episodes of bradycardia noted with suctioning. EKG checked 04/12/2021. QTc interval 495 ms. Metoprolol on hold due to episodes of bradycardia. Continue calcium channel dar. Losartan added ID: Lung abscess- will require 4 to 6 weeks of antibiotic therapy for the pulmonary abscess. - Sputum cultures with Group G Beta strep. Repeat sputum cultures negative thus far. -Continue with Flagyl and levofloxacin Bacteremia - Repeat blood cultures 04/08 with 1 bottle growing coag negative staph: Suspect contaminant -Repeat blood cultures remain negative Cultures from BAL fluid sent 04/16/2021 --> negative to date GI/Nutrition: Transaminitis -resolved Elevated lipase: Resolved Necrotizing pancreatitis Continue tube feeds. Renal: Hypernatremia resolved. Initiated on Lasix drip 04/15/2021. Diuresing well. Replace electrolytes as needed Heme: Anemia secondary to bone marrow suppression of disease process Endocrine: ICU hyperglycemia protocol --Prophylaxis VTE: Lovenox for DVT prophylaxis restarted 04/16/2021. GI: Lansoprazole Lines: PIV, Rogers Plan: In/out -4 L, urine output 6.9 L ABG 7.44/49/59 Hypokalemia being replaced. Repeat BMP later today Plan will be to discontinue Lasix later today and start 40 mg every 12 Continue with antibiotics for total of 4 weeks for the right-sided lung abscess Patient still spiking low-grade fever. T-max 37.8. Patient will benefit from LTAC placement. Patient's Mrs. Emperatriz Neri [phone]. I have personally spent 38 minutes of critical care time in the direct management of this patient. This is a life/limb threatening event. This includes time spent evaluating patient, direct bedside care, chart review, placing orders, interpretation of diagnostic studies, discussion with consultants, patient, and family members, as well as other required patient management activities. This time is exclusive of all separately billable procedures, and teaching time and separate from and in addition to any other critical care service time. Please note the above document was generated using voice recognition software. It may contain grammatical, syntax or spelling errors. (2) Pneumonia due to COVID-19 virus: (3) Pulmonary abscess: (4) AMS (altered mental status): (5) Cerebral parenchymal hemorrhage: (6) Encephalopathy: (7) Hypernatremia: Admission and Anticipated Discharge Date Admission Date: March 20, 2021 Subjective Patient seen and examined at bedside. No acute distress, no adverse events overnight. Patient was awake and alert Following simple commands Currently on Lasix drip. Urinating well. Denies any chest pain, no headache. Patient was saturating 93% on 40% FiO2 Review of Systems Review of Systems: All systems reviewed & are unremarkable except as noted in Subjective Physical Exam Physical Exam: Constitutional: No acute distress HEENT: EOMI, PERRLA, positive trach Respiratory system: Decreased air entry bilaterally, no wheeze, rhonchi, positive crackles bilateral lower lobes CVS: S1-S2 positive, no murmurs or gallops Abdomen: Soft, nontender, nondistended, positive bowel sounds x4, obese Extremities: +2 pulses bilaterally radialis/ dorsalis pedis, no cyanosis, +3 pitting edema bilateral lower extremity, +2 edema right upper extremity Neuro: Awake and alert, following simple commands Psych: Normal mood and affect G/U: Positive Rogers Skin: no rashes, warm and dry Lymphatic: no cervical or axillary lymphadenopathy Results & Data Results & Data ([facility]) Vital Signs (Past 12 Hours) Vital Signs Temp Pulse Resp BP Pulse Ox 04/17/21 06:00 37.2 C 78 149/79 H 90 04/17/21 05:42 37.3 C 81 171/66 H 04/17/21 05:12 37.2 C 65 155/55 H 92 04/17/21 04:53 70 30 H 89 L 04/17/21 04:42 37.1 C 68 135/56 L 91 04/17/21 04:12 37.1 C 87 130/68 96 04/17/21 03:42 37.0 C 72 175/72 H 90 04/17/21 03:12 37.0 C 68 159/69 H 89 L 04/17/21 02:42 37.0 C 74 166/65 H 88 L 04/17/21 02:12 37.1 C 93 H 139/72 96 04/17/21 01:42 37.2 C 66 158/68 H 91 04/17/21 01:30 65 27 H 92 04/17/21 01:12 37.2 C 62 141/54 H 91 04/17/21 00:42 37.2 C 63 128/59 L 90 04/17/21 00:12 37.3 C 70 165/59 H 91 04/16/21 23:42 37.6 C H 72 186/66 H 99 04/16/21 23:27 68 04/16/21 23:12 37.7 C H 67 144/62 H 93 04/16/21 22:42 37.7 C H 70 159/60 H 95 04/16/21 22:12 37.7 C H 66 160/59 H 94 04/16/21 21:55 66 26 H 95 04/16/21 21:43 37.7 C H 67 144/59 H 94 04/16/21 21:12 37.7 C H 67 166/60 H 93 04/16/21 20:42 37.7 C H 68 137/59 L 94 04/16/21 20:12 37.6 C H 68 156/61 H 93 04/17/21 05:02 04/17/21 05:02 Coding Level of Care Code Critical Care 1st 30-74 mins Diagnoses Acute respiratory failure with hypoxia J96.01 Pneumonia due to COVID-19 virus U07.1; J12.82 Pulmonary abscess J85.2 AMS (altered mental status) R41.82 Cerebral parenchymal hemorrhage I61.9 Encephalopathy G93.40 Hypernatremia E87.0 Time Spent (min) 38
[2021-04-17] MEDS ORDERED: POTASSIUM CHLORIDE CRTAB 20 MEQ TABCR PO STA (08:10)
[2021-04-17] MEDS ORDERED: POTASSIUM CHLORIDE 20 MEQ/15 ML UDC PO STA ×2 (09:07→17:23)
[2021-04-17] MEDS: LOSARTAN POTASSIUM 50 MG TAB PO SCH (09:08)
[2021-04-17] MEDS: levoFLOXacin 750 MG TAB PO SCH (09:08)
[2021-04-17] MEDS: metroNIDAZOLE 500 MG TAB PO SCH ×3 (09:08→23:47)
[2021-04-17] MEDS: LANSOPRAZOLE 30 MG SOLTAB OG SCH ×2 (09:08→20:13)
[2021-04-17] MEDS: amLODIPine BESYLATE 5 MG TAB PO SCH (09:08)
[2021-04-17] MEDS: ENOXAPARIN INJ 40 MG/0.4 ML SYR SQ SCH (09:08)
[2021-04-17] MEDS: NYSTATIN SUSP 500,000 U/5 ML UDC PO SCH ×3 (09:09→20:13)
[2021-04-17] MEDS: clonazePAM 0.25 MG TAB PO SCH ×2 (09:11→20:12)
[2021-04-17 15:31] LABS: BUN Creatinine Ratio 27.7 (10-20); Calcium 7.9 mg/dl (8.5-10.1); Creatinine Clr Calc Pharmacy 71.4 ml/min; Est GFR (African American) 62.3 ml/min; Est GFR (Non-African American) 53.8 ml/min; Potassium 3.4 mmol/L (3.5-5.1)
--- NOTE | 2021-04-17 15:50 | Hospitalist Progress Note ---
Date of Service April 17, 2021 Assessment & Plan (1) Acute respiratory failure with hypoxia: Plan: due to COVID 19 pneumonia, bilateral infiltrates on CXR Was requiring prone positioning and BiPAP while awake, but then weaned down to wall high flow nasal cannula at 11-15 L on 03/23 However, on 03/24 worsened again was placed back on Vapotherm high flow nasal cannula On 03/25, requiring higher amounts of oxygen at 40 L and up to 80 % FiO2 to maintain pulse ox 90-91% On 03/26 switched to Ventilator HFNC at 60L, 100% FiO2 to keep POx>88%---> continued to decompensate on the morning of 03/27 and was intubated and proned He was not a candidate for ECMO Previously had pneumomediastinum which is now resolved Status post tocilizumab on 03/21 Completed a course of high-dose dexamethasone initially with 10 mg daily and then on 03/28, increased to 20 mg daily x5 days, then 10 mg daily x5 days Ventilator management as per trial judge status post tracheostomy on 04/05 on pressure support today, vitals remained stable which is huge improvement off of all scheduled sedation starting Klonopin for anxiety Dilaudid for pain control, no doses needed today Lasix drip to provide diuresis, try to help oxygenation (2) AMS (altered mental status): Plan: ongoing issue, but improving a lot the past few days etiologies include: ICU delirium, hypernatremia, fevers, infection, elevated ammonia he opens his eyes spontaneously, squeezes hand on command which is improvement, now wiggling toes on command ammonia was > 40, started on lactulose, now stopped Na is down to normal, peaked at 157 on Thursday 04/12 fevers? infection is covered, could be central fevers with small parenchymal hemorrhage all sedation is off at this point, adding low dose Klonopin for anxiety (3) Fever: Plan: Fevers started on 04/02, then resolved UA normal on 04/02 CXR with persistent infiltrates, sputum culture with group C beta strep blood cultures - no growth from 04/02, but blood cultures positive on 04/09 for coagulase-negative Staphylococcus in 1/2 sets-likely contaminant Blood cultures 04/10-no growth to date He then continued with persistent fevers from 04/05-04/10 acute sinusitis/large mastoid effusions seen on MRI brain possible right lung abscess on CT chest on 04/09--negative AFB, culture no growth to date right pleural effusion - thoracentesis, pleural culture negative Central and arterial lines have been removed and replaced with peripheral IVs Dopplers of lower extremities negative for DVT CT chest/abdomen/pelvis significant for lung abscess, necrotizing pancreatitis but lipase normal MRIs of cervical/thoracic/lumbar spine without epidural abscess or discitis MRSA swab remains negative - continue Levaquin and Flagyl, was started 04/07, will need 4 weeks to treat possible lung abscess echo: EF 70%, no vegetations, normal valves (4) Cerebral parenchymal hemorrhage: Plan: new finding on CT head on 04/13 small, 5mm area right parietal lobe, also with trace subarachnoid hemorrhage left frontal lobe repeat head CT 04/13 and 04/14 with stable hemorrhage neurology consulted, likely bleed in setting of hypertension, Lovenox MRI brain and MRA brain on 04/14: unchanged right 5mm parenchymal hemorrhage, normal angiography no further imaging planned unless mental status changes (5) Bradycardia: Plan: with sinus terry initially while on BIPAP prior to intubation HR dropped to 20's on 04/12, required atropine, pacer pads on stop metoprolol due to frequent pauses no bradycardia today while on pressure support, this is an improvement (6) SVT (supraventricular tachycardia): Plan: Had SVT to the 200s on the evening of 04/07 with associated hypotension requiring esmolol, amiodarone, adenosine x3, synchronized cardioversion x5 Also had further atrial fibrillation on 04/07 and again on the night of 04/09 Now back in normal sinus rhythm stopped metoprolol 25mg BID due to pauses Continue to replace electrolytes as needed (7) Pneumonia due to COVID-19 virus: Plan: As above still requiring mechanical ventilation, now status post tracheostomy remove from neg pressure isolation 04/15 (8) Hypertension: Plan: Now with significant hypertension amlodipine 10mg daily (9) Hypokalemia: Plan: monitor daily, ICU replacement protocol (10) BPH loc w urin obs/LUTS: Plan: Rogers catheter in place (11) Lung abscess: Plan: As above Status post aspiration Follow cultures-no growth to date Continue levofloxacin, metronidazole for several weeks (12) Pancreatitis: Plan: Visualized on CT of the abdomen with suspected necrotizing pancreatitis Lipase normal, triglycerides improving Difficult to tell patient is having pain Continue tube feeds Plan: DVT prophylaxis: SCD, Lovenox stopped due to intraparenchymal bleeding Disposition: Continued stay in ICU, prognosis is improving slightly ultimately will need LTACH CODE STATUS: conditional code Admission and Anticipated Discharge Date Admission Date: March 20, 2021 Subjective patient is more alert, following all commands, moving extremities no sedation, does have some pain control on board but did not require any today on pressure support and did not get bradycardic which is an improvement family is likely coming in tomorrow to see him and provide support Review of Systems Review of Systems: All systems reviewed & are unremarkable except as noted in Subjective (feels weak, no pain, no shortness of breath with vent) Physical Exam Constitutional: well developed, + obese and + mechanically ventilated (tracheostomy); no acute distress Neck: trachea midline, no thyromegaly + tracheostomy present Respiratory: + tachypneic and symmetric chest movement (pressure support) Auscultation: no crackles, no rales, no rhonchi and no wheezes Cardiovascular: RRR, no murmur, no edema Gastrointestinal (Abdomen): normal bowel sounds, soft, nontender, no hepatosplenomegaly Musculoskeletal: Head/Neck/Chest: normocephalic, head atraumatic and neck supple Extremities: extremities normal to inspection; no cyanosis, no clubbing and no petechiae Skin: no rashes, warm and dry Neurologic: CN's II-XI intact bilaterally and awake (opens eyes spontaneously); no focal motor deficits (squeezes hands appropriately, moves toes) Speech / Cognition: + abnormal speech (has tracheostomy) Motor/Sensory: no tremor and no fasciculations Psychiatric: Orientation: alert, oriented to person and oriented to place Results & Data Results & Data ([facility]) Vital Signs (Past 12 Hours) Vital Signs Temp Pulse Resp BP Pulse Ox 04/17/21 15:16 90 33 H 92 04/17/21 15:12 38.0 C H 88 103/53 L 91 04/17/21 14:42 38.0 C H 93 H 99/54 L 91 04/17/21 14:12 38.0 C H 86 101/55 L 93 04/17/21 13:42 38.1 C H 74 112/52 L 94 04/17/21 13:12 38.0 C H 74 96/47 L 93 04/17/21 12:42 37.8 C H 73 126/54 L 91 04/17/21 12:12 37.8 C H 73 137/65 92 04/17/21 11:42 37.8 C H 87 118/63 93 04/17/21 11:21 84 33 H 92 04/17/21 11:12 37.8 C H 85 140/64 93 04/17/21 10:42 37.7 C H 79 109/60 93 04/17/21 10:12 37.6 C H 87 114/61 90 04/17/21 09:42 37.5 C 85 127/65 89 L 04/17/21 09:41 33 H 04/17/21 09:12 37.6 C H 76 140/63 91 04/17/21 08:42 37.5 C 76 134/58 L 91 04/17/21 08:12 37.4 C 73 142/58 H 90 04/17/21 07:42 37.3 C 69 135/65 89 L 04/17/21 07:35 65 31 H 90 04/17/21 07:12 37.3 C 83 140/73 89 L 04/17/21 06:00 37.2 C 78 149/79 H 90 04/17/21 05:42 37.3 C 81 171/66 H 04/17/21 05:12 37.2 C 65 155/55 H 92 04/17/21 04:53 70 30 H 89 L 04/17/21 04:42 37.1 C 68 135/56 L 91 04/17/21 04:12 37.1 C 87 130/68 96 Laboratory Results Laboratory Results - last 24 hr 04/09/21 04/16/21 04/16/21 22:38 16:23 19:33 WBC RBC Hgb Hct MCV MCH MCHC RDW Std Deviation RDW Coeff of Sujit Plt Count MPV Immature Gran % (Auto) Neut % (Auto) Lymph % (Auto) [place] % (Auto) Eos % (Auto) Baso % (Auto) Neut # (Auto) Lymph # (Auto) [place] # (Auto) Eos # (Auto) Baso # (Auto) Immature Gran # (Auto) Sample Site POC pH POC pCO2 POC pO2 POC HCO3 POC Total CO2 POC Base Excess POC ABG O2 Sat Sher Test O2 Delivery Device POC O2 Rate Minute Ventilation POC FiO2 Tidal Volume PEEP Sodium Potassium Chloride Carbon Dioxide Anion Gap BUN Creatinine Est Cr Clr Drug Dosing Est GFR ( Amer) Est GFR (Non-Af Amer) BUN/Creatinine Ratio Glucose POC Glucose 160 H 128 H Calcium Phosphorus Magnesium Beta-(1,3)-D-Glucan 53 B-(1,3)-D-Glucan Intrp NEGATIVE 04/16/21 04/17/21 04/17/21 23:34 04:08 05:01 WBC RBC Hgb Hct MCV MCH MCHC RDW Std Deviation RDW Coeff of Sujit Plt Count MPV Immature Gran % (Auto) Neut % (Auto) Lymph % (Auto) [place] % (Auto) Eos % (Auto) Baso % (Auto) Neut # (Auto) Lymph # (Auto) [place] # (Auto) Eos # (Auto) Baso # (Auto) Immature Gran # (Auto) Sample Site R Radial POC pH 7.44 POC pCO2 49 H POC pO2 59 L POC HCO3 34 H POC Total CO2 35 H POC Base Excess 10.0 H POC ABG O2 Sat 91.0 Sher Test Pass O2 Delivery Device Ventilator POC O2 Rate 25 Minute Ventilation 13.8 POC FiO2 40 Tidal Volume 470 PEEP 8 Sodium Potassium Chloride Carbon Dioxide Anion Gap BUN Creatinine Est Cr Clr Drug Dosing Est GFR ( Amer) Est GFR (Non-Af Amer) BUN/Creatinine Ratio Glucose POC Glucose 117 H 159 H Calcium Phosphorus Magnesium Beta-(1,3)-D-Glucan B-(1,3)-D-Glucan Intrp 04/17/21 04/17/21 04/17/21 05:02 05:02 12:17 WBC 11.99 H RBC 3.04 L Hgb 9.0 L Hct 28.8 L MCV 94.7 MCH 29.6 MCHC 31.3 L RDW Std Deviation 52.5 H RDW Coeff of Sujit 15.4 H Plt Count 384 MPV 10.4 Immature Gran % (Auto) 2.1 Neut % (Auto) 83.3 Lymph % (Auto) 6.8 [place] % (Auto) 6.0 Eos % (Auto) 1.7 Baso % (Auto) 0.1 Neut # (Auto) 9.99 H Lymph # (Auto) 0.82 L [place] # (Auto) 0.72 H Eos # (Auto) 0.20 Baso # (Auto) 0.01 Immature Gran # (Auto) 0.25 H Sample Site POC pH POC pCO2 POC pO2 POC HCO3 POC Total CO2 POC Base Excess POC ABG O2 Sat Sher Test O2 Delivery Device POC O2 Rate Minute Ventilation POC FiO2 Tidal Volume PEEP Sodium 140 Potassium 3.1 L D Chloride 102 Carbon Dioxide 34 H Anion Gap 4.0 BUN 41 H Creatinine 1.32 Est Cr Clr Drug Dosing 76.3 Est GFR ( Amer) 67.5 Est GFR (Non-Af Amer) 58.2 BUN/Creatinine Ratio 30.9 H Glucose 155 H POC Glucose 138 H Calcium 8.0 L Phosphorus 3.9 D Magnesium 2.1 Beta-(1,3)-D-Glucan B-(1,3)-D-Glucan Intrp 04/17/21 14:45 WBC RBC Hgb Hct MCV MCH MCHC RDW Std Deviation RDW Coeff of Sujit Plt Count MPV Immature Gran % (Auto) Neut % (Auto) Lymph % (Auto) [place] % (Auto) Eos % (Auto) Baso % (Auto) Neut # (Auto) Lymph # (Auto) [place] # (Auto) Eos # (Auto) Baso # (Auto) Immature Gran # (Auto) Sample Site POC pH POC pCO2 POC pO2 POC HCO3 POC Total CO2 POC Base Excess POC ABG O2 Sat Sher Test O2 Delivery Device POC O2 Rate Minute Ventilation POC FiO2 Tidal Volume PEEP Sodium 142 Potassium 3.4 L Chloride 104 Carbon Dioxide 35 H Anion Gap 3.0 BUN 39 H Creatinine 1.41 H Est Cr Clr Drug Dosing 71.4 Est GFR ( Amer) 62.3 Est GFR (Non-Af Amer) 53.8 BUN/Creatinine Ratio 27.7 H Glucose 122 H POC Glucose Calcium 7.9 L Phosphorus Magnesium Beta-(1,3)-D-Glucan B-(1,3)-D-Glucan Intrp Medications Administered Current Inpatient Medications Acetaminophen (Acetaminophen 500 Mg Tab) 1,000 mg PO Q6H PRN PRN Reason: Fever or headache Stop: 05/05/21 12:50 Last Admin: 04/16/21 00:51 Dose: 1,000 mg Documented by: Albuterol (Albut/Ipratrop 3mg/0.5mg Neb 3 Ml Vial) 3 ml NEB Q4R PRN PRN Reason: Shortness of Breath/Wheezing Stop: 04/19/21 16:45 Amlodipine Besylate (Amlodipine Besylate 5 Mg Tab) 10 mg PO QAM [facility] Stop: 04/29/21 08:59 Last Admin: 04/17/21 09:08 Dose: 10 mg Documented by: Atropine Sulfate (Atropine Sulfate 0.1 Mg/Ml 10ml Syr) 1 mg IV .KEEP AT BEDSIDE PRN PRN Reason: AT BEDSIDE PLEASE Clonazepam (Clonazepam 0.25 Mg Tab) 0.25 mg PO BID [facility] Stop: 05/15/21 20:59 Last Admin: 04/17/21 09:11 Dose: 0.25 mg Documented by: Dextrose (Dextrose 50% 50 Ml Syringe) 25 - 50 ml IV UD PRN; Protocol PRN Reason: Hypoglycemia Protocol Stop: 05/12/21 10:44 Enoxaparin Sodium (Enoxaparin Inj 40 Mg/0.4 Ml Syr) [facility] [place] Stop: 05/16/21 09:14 Last Admin: 04/17/21 09:08 Dose: 40 mg Documented by: Enteral Nutritional Formula (Peptamen 1.5 Darrian 1,000 Ml Bag) 1,000 ml NG UD [facility]; Protocol Stop: 05/16/21 13:29 Last Admin: 04/16/21 16:25 Dose: 1,000 ml Documented by: Fentanyl Citrate (Fentanyl Citrate 100 Mcg/2 Ml Vial) 50 mcg IV Q30M PRN PRN Reason: pain unrelieved by Dilaudid Stop: 04/30/21 08:00 Last Admin: 04/16/21 08:38 Dose: 50 mcg Documented by: Glucagon (Glucagon For Inj 1 Mg Vial) 1 mg SQ UD PRN; Protocol PRN Reason: Hypoglycemia Protocol Stop: 05/12/21 10:44 Glucose (Glucose 40% Gel 15 Gm Tube) 15 - 30 gm PO UD PRN; Protocol PRN Reason: Hypoglycemia Protocol Stop: 05/12/21 10:44 Glucose (Glucose 10 Tabs/Tube) 4 - 8 tabs PO UD PRN; Protocol PRN Reason: Hypoglycemia Protocol Stop: 05/12/21 10:44 Hydralazine HCl (Hydralazine Hcl 20 Mg/Ml Vial) 10 mg IV Q6H PRN PRN Reason: hypertension Stop: 05/10/21 20:14 Last Admin: 04/16/21 12:52 Dose: 10 mg Documented by: Hydromorphone HCl (Hydromorphone Inj 1 Mg/Ml Syringe) 1 mg IV Q2H PRN PRN Reason: Pain Stop: 04/30/21 07:48 Last Admin: 04/17/21 04:15 Dose: 1 mg Documented by: Nicardipine HCl 50 mg/ (Dextrose) 250 mls @ 62.5 mls/hr IV .Q4H [facility]; Protocol Stop: 05/14/21 08:59 Last Admin: 04/17/21 12:20 Dose: Not Given Documented by: Furosemide 100 mg/ Dextrose 100 mls @ 10 mls/hr IV .Q10H [facility] Stop: 05/15/21 20:29 Last Admin: 04/17/21 10:57 Dose: 10 mg/hr, 10 mls/hr Documented by: Insulin Aspart (Insulin Aspart 100 Units/Ml 3 Ml Pen) 0 units SC 0000,0400,1200,1600,2000 [facility] Stop: 05/16/21 15:59 Last Admin: 04/17/21 12:23 Dose: 3 units Documented by: Lansoprazole (Lansoprazole 30 Mg Soltab) 30 mg OG BID [facility] Stop: 04/27/21 20:59 Last Admin: 04/17/21 09:08 Dose: 30 mg Documented by: Levofloxacin (Levofloxacin 750 Mg Tab) 750 [facility] Protocol Stop: 05/04/21 09:01 Last Admin: 04/17/21 09:08 Dose: 750 mg Documented by: Losartan Potassium (Losartan Potassium 50 Mg Tab) 100 mg PO QAM [facility] Stop: 05/16/21 08:59 Last Admin: 04/17/21 09:08 Dose: 100 mg Documented by: Metronidazole (Metronidazole 500 Mg Tab) 500 mg PO Q8H [facility]; Protocol Stop: 05/05/21 00:01 Last Admin: 04/17/21 09:08 Dose: 500 mg Documented by: Midazolam HCl (Midazolam Hcl 1 Mg/Ml 2ml Vial) 2 mg IV Q2H PRN PRN Reason: Agitation Stop: 05/14/21 02:18 Last Admin: 04/16/21 06:57 Dose: 2 mg Documented by: Miscellaneous (Carbohydrates For Hypoglycemia ) 15 - 30 gm PO UD PRN PRN Reason: Hypoglycemia Treatment Stop: 05/12/21 10:44 Miscellaneous (Pending Order: Resume Tube Feeds At 1100) 1 ea N/A DAILY@1100 [facility] Stop: 05/17/21 10:59 Last Admin: 04/17/21 10:58 Dose: 1 ea Documented by: Multi-Ingredient Cream (Artificial Tears Op Oint 3.5 Gm Tube) 1 appln OP Q4 PRN PRN Reason: DRY EYES Stop: 04/26/21 08:59 Nystatin (Nystatin Susp 500,000 U/5 Ml Udc) 10 ml PO TID [facility] Stop: 04/26/21 13:59 Last Admin: 04/17/21 14:33 Dose: 10 ml Documented by: Sennosides (Sennosides 8.8 Mg/5 Ml Udc) 17.6 mg PO BID PRN PRN Reason: CONSTIPATION Stop: 05/06/21 20:59 Sterile Water (Tube Feeding Water Flush) 250 ml GT Q6H [facility] Stop: 05/16/21 17:59 Last Admin: 04/17/21 12:23 Dose: 250 ml Documented by: PG Care Time/CCT Total # of Minutes Spent Total Time Spent with Patient: Total time spent is greater than 50% in coordination of care (as documented) at patient's floor/unit and/or counseling patient: Coding Level of Care Code 25555 Subseq Hosp Care Lvl 3 Diagnoses Acute respiratory failure with hypoxia J96.01 AMS (altered mental status) R41.82 Fever R50.9 Cerebral parenchymal hemorrhage I61.9 Bradycardia R00.1 SVT (supraventricular tachycardia) I47.1 Pneumonia due to COVID-19 virus U07.1; J12.82 Hypertension I10 Hypokalemia E87.6 BPH loc w urin obs/LUTS N40.1 Lung abscess J85.2 Pancreatitis K85.90
[2021-04-17] MEDS: PEPTAMEN 1.5 CAL 1,000 ML BAG NG SCH (16:44)
[2021-04-17] MEDS: ALBUT/IPRATROP 3MG/0.5MG NEB 3 ML VIAL NEB PRN (19:57)
[2021-04-17] MEDS: MIDAZOLAM HCL 1 MG/ML 2ML VIAL IV PRN (20:41)
[2021-04-18] MEDS: HYDROmorphone INJ 1 MG/ML SYRINGE IV PRN ×2 (00:58→05:18)
[2021-04-18] MEDS: ALBUT/IPRATROP 3MG/0.5MG NEB 3 ML VIAL NEB PRN (03:18)
[2021-04-18] MEDS: INSULIN ASPART 100 UNITS/ML 3 ML PEN SC SCH ×4 (04:57→20:16)
[2021-04-18 05:18] LABS: Basophils # (auto) 0.03 K/uL (0-0.2); Basophils % (auto) 0.2 %; Eosinophils # (auto) 0.13 K/uL (0-0.5); Hematocrit (blood only) 28.4 % (42-52); Immature Granulocytes # (auto) 0.31 K/uL (0.00-0.02); Immature Granulocytes % (auto) 2.5 %; Lymphocytes % (auto) 8.8 %; Mean Corpuscular Hemoglobin 29.5 pg (25-34); Mean Corpuscular Hgb Conc 31.7 g/dL (32-36); Mean Corpuscular Volume 93.1 fL (80-100); Mean Platelet Volume 10.1 fL (7.4-10.4); Monocytes # (auto) 1.09 K/uL (0.11-0.59); Monocytes % (auto) 8.7 %; Neutrophils % (auto) 78.8 %; Platelet Count 426 K/uL (130-400); RDW Coefficient of Variation 15.5 % (11.5-14.5); RDW Standard Deviation 52.7 fL (36.4-46.3); Red Blood Count 3.05 M/uL (4.7-6.1); White Blood Count 12.46 K/uL (4.8-10.8)
[2021-04-18 05:39] LABS: Calcium 8.1 mg/dl (8.5-10.1); Creatinine Clr Calc Pharmacy 65.8 ml/min; Est GFR (African American) 56.4 ml/min; Est GFR (Non-African American) 48.7 ml/min; Magnesium 2.3 mg/dl (1.8-2.4); Potassium 3.6 mmol/L (3.5-5.1)
[2021-04-18] MEDS: TUBE FEEDING WATER FLUSH GT SCH ×3 (05:39→17:54)
[2021-04-18 05:53] LABS: Phosphorus 3.3 mg/dl (2.5-4.9)
[2021-04-18] MEDS ORDERED: POTASSIUM CHLORIDE CRTAB 20 MEQ TABCR PO STA (08:16)
[2021-04-18] MEDS ORDERED: POTASSIUM CHLORIDE 20 MEQ/15 ML UDC PO STA (08:16)
--- NOTE | 2021-04-18 08:23 | Critical Care Progress Note ---
Date of Service April 18, 2021 Assessment & Plan (1) Acute respiratory failure with hypoxia: Plan: Reason Critically Ill: 61-year-old male with past medical history of hypertension admitted to the hospital for COVID-19 pneumonia and acute hypoxic respiratory failure, intubated 03/27/2021 PLAN: NEURO: Awake and alert. Following simple commands EEG without epileptiform activity. MRI brain 04/14/2021 with no significant change in the 5 mm hemorrhagic focus within the periventricular right frontoparietal region. Brain MRA 04/14/2021 unremarkable. Maintain systolic blood pressures 140-160 per neurology. Appreciate neurology consultation. Echo without findings of embolic phenomenon. Continue with benzodiazepine every 12, fentanyl as needed for opioid withdrawal RESPIRATORY: VDRF with acute hypoxic respiratory failure, secondary to multilobar COVID-19 pneumonia - COVID-19 PCR positive 03/16/2021, remains positive as of 04/07/21 - S/p Tocilizumab 03/21/2021 - Intubated 03/27/2021; tracheostomy performed 04/05/21 -Continue pressure support as able. S/p ARDS net high-dose steroid protocol - Dexamethasone 20mg x5 days, 10mg x5 days -- completed on 04/06 Pneumomediastinum--> resolved Lung abscess on CT 04/09 Right-sided pleural effusion -Status post thoracentesis 04/09; cultures negative thus far. Status post bronchoscopy 04/16/2021. Cultures and cytology sent for BAL fluid. Mild to moderate amount of thick white secretions noted and aspirated. [id number] ultrasound performed of the right pleural effusion 04/16/2021. Loculation seen. Effusion small. He has a very high respiratory drive secondary to underlying fibrotic ARDS and opiate withdrawal. CARDIOVASCULAR: Paroxysmal atrial fibrillation with RVR: Currently normal sinus rhythm. Episode of SVT evening of 04/07, 04/09: Resolved Intermittent episodes of bradycardia noted with suctioning. EKG checked 04/12/2021. QTc interval 495 ms. Metoprolol on hold due to episodes of bradycardia. Continue calcium channel dar. Losartan added ID: Lung abscess- will require 4 to 6 weeks of antibiotic therapy for the pulmonary abscess. - Sputum cultures with Group G Beta strep. Repeat sputum cultures negative thus far. -Continue with Flagyl and levofloxacin Bacteremia - Repeat blood cultures 04/08 with 1 bottle growing coag negative staph: Suspect contaminant -Repeat blood cultures remain negative Cultures from BAL fluid sent 04/16/2021 --> negative to date GI/Nutrition: Transaminitis -resolved Elevated lipase: Resolved Necrotizing pancreatitis Continue tube feeds. Renal: Hypernatremia resolved. Initiated on Lasix drip 04/15/2021. Diuresing well. Replace electrolytes as needed Heme: Anemia secondary to bone marrow suppression of disease process Endocrine: ICU hyperglycemia protocol --Prophylaxis VTE: Lovenox for DVT prophylaxis restarted 04/16/2021. GI: Lansoprazole Lines: PIV, Rogers Plan: In/out 1.7 L, urine output 3250 T-max 38.2 20 mEq of potassium given to the patient Patient's creatinine is slightly trending up today it is 1.5 Lasix drip has been held since evening of 1820 I will hold Lasix today as well. Continue with antibiotics for total of 4 weeks for the right-sided lung abscess Patient will benefit from LTAC placement. Patient's Mrs. Emperatriz Neri [phone]. Please note the above document was generated using voice recognition software. It may contain grammatical, syntax or spelling errors.Any formal questions or concerns about the content, text or information contained within the body of this dictation should be directly addressed to the provider for clarification. (2) Pneumonia due to COVID-19 virus: (3) Pulmonary abscess: (4) AMS (altered mental status): (5) Cerebral parenchymal hemorrhage: (6) Encephalopathy: (7) Hypernatremia: Admission and Anticipated Discharge Date Admission Date: March 20, 2021 Subjective Patient seen and examined at bedside. No acute distress, no adverse events overnight Denies any headache, no nausea, no vomiting No chest pain No belly pain Review of Systems Review of Systems: All systems reviewed & are unremarkable except as noted in Subjective Physical Exam Physical Exam: Constitutional: No acute distress HEENT: EOMI, PERRLA, positive trach Respiratory system: Decreased air entry bilaterally, no wheeze, rhonchi, positive crackles bilateral lower lobes CVS: S1-S2 positive, no murmurs or gallops Abdomen: Soft, nontender, nondistended, positive bowel sounds x4, obese Extremities: +2 pulses bilaterally radialis/ dorsalis pedis, no cyanosis, +3 pitting edema bilateral lower extremity, +2 edema right upper extremity Neuro: Awake and alert, following simple commands Psych: Normal mood and affect G/U: Positive Rogers Skin: no rashes, warm and dry Lymphatic: no cervical or axillary lymphadenopathy Results & Data Results & Data ([facility]) Vital Signs (Past 12 Hours) Vital Signs Temp Pulse Resp BP Pulse Ox 04/18/21 07:10 88 32 H 90 04/18/21 06:12 73 107/46 L 92 04/18/21 05:47 37.1 C 04/18/21 05:42 82 116/57 L 90 04/18/21 05:00 37.5 C 90 92 04/18/21 04:12 37.6 C H 90 141/62 H 92 04/18/21 03:43 77 28 H 92 04/18/21 03:42 37.7 C H 79 113/52 L 92 04/18/21 03:12 37.7 C H 79 95/46 L 92 04/18/21 02:42 37.8 C H 76 102/44 L 04/18/21 02:12 37.9 C H 80 104/47 L 91 04/18/21 01:42 37.9 C H 77 117/48 L 90 04/18/21 01:12 37.8 C H 73 117/51 L 04/18/21 00:42 37.9 C H 80 106/51 L 91 04/18/21 00:12 37.8 C H 93 H 118/55 L 90 04/18/21 00:00 80 04/17/21 23:42 38.0 C H 91 H 104/52 L 90 04/17/21 23:12 38.0 C H 79 112/55 L 91 04/17/21 22:45 87 32 H 92 04/17/21 22:42 38.0 C H 85 114/60 92 04/17/21 22:12 38.1 C H 78 123/61 96 04/17/21 21:42 38.2 C H 78 112/56 L 96 04/17/21 21:12 38.1 C H 83 102/56 L 94 04/17/21 20:59 84 34 H 93 04/17/21 20:42 38.1 C H 89 103/50 L 92 04/18/21 04:42 04/18/21 04:42 Coding Level of Care Code 10123 Subseq Hosp Care Lvl 3 Diagnoses Acute respiratory failure with hypoxia J96.01 Pneumonia due to COVID-19 virus U07.1; J12.82 Pulmonary abscess J85.2 AMS (altered mental status) R41.82 Cerebral parenchymal hemorrhage I61.9 Encephalopathy G93.40 Hypernatremia E87.0
[2021-04-18] MEDS: metroNIDAZOLE 500 MG TAB PO SCH ×2 (09:01→15:59)
[2021-04-18] MEDS: NYSTATIN SUSP 500,000 U/5 ML UDC PO SCH ×3 (09:01→20:18)
[2021-04-18] MEDS: ENOXAPARIN INJ 40 MG/0.4 ML SYR SQ SCH (09:01)
[2021-04-18] MEDS: clonazePAM 0.25 MG TAB PO SCH ×2 (09:01→20:18)
[2021-04-18] MEDS: levoFLOXacin 750 MG TAB PO SCH (09:01)
[2021-04-18] MEDS: LOSARTAN POTASSIUM 50 MG TAB PO SCH (09:01)
[2021-04-18] MEDS: amLODIPine BESYLATE 5 MG TAB PO SCH (09:01)
[2021-04-18] MEDS: LANSOPRAZOLE 30 MG SOLTAB OG SCH ×2 (09:02→20:18)
--- NOTE | 2021-04-18 14:29 | Hospitalist Progress Note ---
Date of Service April 18, 2021 Assessment & Plan (1) Acute respiratory failure with hypoxia: Plan: due to COVID 19 pneumonia, bilateral infiltrates on CXR Was requiring prone positioning and BiPAP while awake, but then weaned down to wall high flow nasal cannula at 11-15 L on 03/23 However, on 03/24 worsened again was placed back on Vapotherm high flow nasal cannula On 03/25, requiring higher amounts of oxygen at 40 L and up to 80 % FiO2 to maintain pulse ox 90-91% On 03/26 switched to Ventilator HFNC at 60L, 100% FiO2 to keep POx>88%---> continued to decompensate on the morning of 03/27 and was intubated and proned He was not a candidate for ECMO Previously had pneumomediastinum which is now resolved Status post tocilizumab on 03/21 Completed a course of high-dose dexamethasone initially with 10 mg daily and then on 03/28, increased to 20 mg daily x5 days, then 10 mg daily x5 days Ventilator management as per manager licensing status post tracheostomy on 04/05 able to tolerate trach collar today (04/18) big improvement from just the beginning of the week when he was on full ventilatory support Klonopin q12 Dilaudid PRN for opiate withdrawal has high respiratory drive due to fibrosis from ARDS and opiate withdrawal Lasix drip to provide diuresis, CR rising, now Lasix drip on hold (2) AMS (altered mental status): Plan: vastly improved the past 48 hours, would say it is resolved he is oriented, following commands, visited with family today etiologies include: ICU delirium, hypernatremia, fevers, infection, elevated ammonia ammonia was > 40, started on lactulose, now stopped Na is down to normal, peaked at 157 on Thursday 04/12 fevers? infection is covered, could be central fevers with small parenchymal hemorrhage all sedation is off at this point, adding low dose Klonopin for anxiety (3) Fever: Plan: Fevers started on 04/02, then resolved UA normal on 04/02 CXR with persistent infiltrates, sputum culture with group C beta strep blood cultures - no growth from 04/02, but blood cultures positive on 04/09 for coagulase-negative Staphylococcus in 1/2 sets-likely contaminant Blood cultures 04/10-no growth to date He then continued with persistent fevers from 04/05-04/10 acute sinusitis/large mastoid effusions seen on MRI brain possible right lung abscess on CT chest on 04/09--negative AFB, culture no growth to date right pleural effusion - thoracentesis, pleural culture negative Central and arterial lines have been removed and replaced with peripheral IVs Dopplers of lower extremities negative for DVT CT chest/abdomen/pelvis significant for lung abscess, necrotizing pancreatitis but lipase normal MRIs of cervical/thoracic/lumbar spine without epidural abscess or discitis MRSA swab remains negative - continue Levaquin and Flagyl, was started 04/07, will need 4 weeks to treat possible lung abscess echo: EF 70%, no vegetations, normal valves (4) Cerebral parenchymal hemorrhage: Plan: new finding on CT head on 04/13 small, 5mm area right parietal lobe, also with trace subarachnoid hemorrhage left frontal lobe repeat head CT 04/13 and 04/14 with stable hemorrhage neurology consulted, likely bleed in setting of hypertension, Lovenox MRI brain and MRA brain on 04/14: unchanged right 5mm parenchymal hemorrhage, normal angiography no further imaging planned unless mental status changes (5) Bradycardia: Plan: with sinus terry initially while on BIPAP prior to intubation HR dropped to 20's on 04/12, required atropine, pacer pads on stop metoprolol due to frequent pauses now on CCB for SVT no bradycardia today (6) SVT (supraventricular tachycardia): Plan: Had SVT to the 200s on the evening of 04/07 with associated hypotension requiring esmolol, amiodarone, adenosine x3, synchronized cardioversion x5 Also had further atrial fibrillation on 04/07 and again on the night of 04/09 Now back in normal sinus rhythm stopped metoprolol 25mg BID due to pauses started on CCB Continue to replace electrolytes as needed (7) Pneumonia due to COVID-19 virus: Plan: completed treatment with dexamethasone received Tocilizumab removed from neg pressure isolation 04/15 (8) Hypertension: Plan: Now with significant hypertension amlodipine 10mg daily (9) Hypokalemia: Plan: monitor daily, ICU replacement protocol (10) BPH loc w urin obs/LUTS: Plan: Rogers catheter in place (11) Lung abscess: Plan: As above Status post aspiration Follow cultures-no growth to date Continue levofloxacin, metronidazole for 4 weeks total (12) Pancreatitis: Plan: Visualized on CT of the abdomen with suspected necrotizing pancreatitis Lipase normal, triglycerides improving Difficult to tell patient is having pain Continue tube feeds Plan: DVT prophylaxis: SCD, Lovenox stopped due to intraparenchymal bleeding Disposition: Continued stay in ICU, prognosis is improving a lot each day, best day today in a long time ultimately will need LTACH CODE STATUS: conditional code Admission and Anticipated Discharge Date Admission Date: March 20, 2021 Subjective patient making strides today, he is on trach collar, tolerating well and he was surprised when his family ( and two sons) came to see him he was able to communicate with them, very very happy I updated his family at the bedside reviewed chart and labs, Cr rising with Quin hernandez d/w Dr. Figueroa Review of Systems Review of Systems: All systems reviewed & are unremarkable except as noted in Subjective Constitutional: + fatigue and + weakness; no fever Respiratory: + cough and + sputum production; no dyspnea Cardiovascular: + edema; no chest pain Musculoskeletal: + muscle weakness (diffuse) Physical Exam Constitutional: well developed, + obese, cooperative and comfortable; no acute distress Neck: trachea midline, no thyromegaly + tracheostomy present Respiratory: normal respiratory effort, + cough and + tachypneic; no respiratory distress, no labored breathing and does not use accessory muscles Auscultation: + rhonchi; no crackles, no rales and no wheezes Cardiovascular: RRR, no murmur, no edema Gastrointestinal (Abdomen): normal bowel sounds, soft, nontender, no hepatosplenomegaly Musculoskeletal: Head/Neck/Chest: normocephalic, head atraumatic and neck supple Extremities: extremities normal to inspection and + abnormal strength (generalized weakness, can move all four extremities); no cyanosis, no clubbing and no petechiae Skin: no rashes, warm and dry Neurologic: CN's II-XI intact bilaterally and awake (opens eyes spontaneously); no focal motor deficits (squeezes hands appropriately, moves toes) Speech / Cognition: + abnormal speech (has tracheostomy) Motor/Sensory: no tremor and no fasciculations Psychiatric: A+Ox3, euthymic affect (very happy with seeing family) Results & Data Results & Data ([facility]) Vital Signs (Past 12 Hours) Vital Signs Temp Pulse Resp BP Pulse Ox 04/18/21 12:03 37.8 C H 04/18/21 11:42 83 128/66 88 L 04/18/21 11:12 80 116/58 L 90 04/18/21 10:45 86 24 91 04/18/21 10:42 88 115/60 91 04/18/21 10:12 85 125/61 91 04/18/21 09:42 83 125/64 90 04/18/21 09:32 37.6 C H 04/18/21 09:19 26 H 04/18/21 09:12 75 119/57 L 94 04/18/21 08:42 78 144/60 H 93 04/18/21 08:12 77 134/53 L 94 04/18/21 07:42 71 120/53 L 93 04/18/21 07:12 85 127/70 88 L 04/18/21 07:10 88 32 H 90 04/18/21 06:42 72 107/50 L 94 04/18/21 06:12 73 107/46 L 92 04/18/21 05:47 37.1 C 04/18/21 05:42 82 116/57 L 90 04/18/21 05:00 37.5 C 90 92 04/18/21 04:12 37.6 C H 90 141/62 H 92 04/18/21 03:43 77 28 H 92 04/18/21 03:42 37.7 C H 79 113/52 L 92 04/18/21 03:12 37.7 C H 79 95/46 L 92 04/18/21 02:42 37.8 C H 76 102/44 L 92 Laboratory Results Laboratory Results - last 24 hr 04/17/21 04/17/21 04/17/21 14:45 16:41 20:10 WBC RBC Hgb Hct MCV MCH MCHC RDW Std Deviation RDW Coeff of Sujit Plt Count MPV Immature Gran % (Auto) Neut % (Auto) Lymph % (Auto) Schleicher % (Auto) Eos % (Auto) Baso % (Auto) Neut # (Auto) Lymph # (Auto) Schleicher # (Auto) Eos # (Auto) Baso # (Auto) Immature Gran # (Auto) Sodium 142 Potassium 3.4 L Chloride 104 Carbon Dioxide 35 H Anion Gap 3.0 BUN 39 H Creatinine 1.41 H Est Cr Clr Drug Dosing 71.4 Est GFR ( Amer) 62.3 Est GFR (Non-Af Amer) 53.8 BUN/Creatinine Ratio 27.7 H Glucose 122 H POC Glucose 128 H 172 H Calcium 7.9 L Phosphorus Magnesium 04/17/21 04/18/21 04/18/21 23:46 04:42 04:42 WBC 12.46 H RBC 3.05 L Hgb 9.0 L Hct 28.4 L MCV 93.1 MCH 29.5 MCHC 31.7 L RDW Std Deviation 52.7 H RDW Coeff of Sujit 15.5 H Plt Count 426 H MPV 10.1 Immature Gran % (Auto) 2.5 Neut % (Auto) 78.8 Lymph % (Auto) 8.8 Schleicher % (Auto) 8.7 Eos % (Auto) 1.0 Baso % (Auto) 0.2 Neut # (Auto) 9.80 H Lymph # (Auto) 1.10 L Schleicher # (Auto) 1.09 H Eos # (Auto) 0.13 Baso # (Auto) 0.03 Immature Gran # (Auto) 0.31 H Sodium 144 Potassium 3.6 Chloride 105 Carbon Dioxide 34 H Anion Gap 5.0 BUN 43 H Creatinine 1.53 H Est Cr Clr Drug Dosing 65.8 Est GFR ( Amer) 56.4 Est GFR (Non-Af Amer) 48.7 BUN/Creatinine Ratio 28.0 H Glucose 135 H POC Glucose 141 H Calcium 8.1 L Phosphorus 3.3 Magnesium 2.3 04/18/21 04/18/21 04:56 11:38 WBC RBC Hgb Hct MCV MCH MCHC RDW Std Deviation RDW Coeff of Sujit Plt Count MPV Immature Gran % (Auto) Neut % (Auto) Lymph % (Auto) Schleicher % (Auto) Eos % (Auto) Baso % (Auto) Neut # (Auto) Lymph # (Auto) Schleicher # (Auto) Eos # (Auto) Baso # (Auto) Immature Gran # (Auto) Sodium Potassium Chloride Carbon Dioxide Anion Gap BUN Creatinine Est Cr Clr Drug Dosing Est GFR ( Amer) Est GFR (Non-Af Amer) BUN/Creatinine Ratio Glucose POC Glucose 129 H 136 H Calcium Phosphorus Magnesium Medications Administered Current Inpatient Medications Acetaminophen (Acetaminophen 500 Mg Tab) 1,000 mg PO Q6H PRN PRN Reason: Fever or headache Stop: 05/05/21 12:50 Last Admin: 04/16/21 00:51 Dose: 1,000 mg Documented by: Albuterol (Albut/Ipratrop 3mg/0.5mg Neb 3 Ml Vial) 3 ml NEB Q4R PRN PRN Reason: Shortness of Breath/Wheezing Stop: 04/19/21 16:45 Last Admin: 04/18/21 03:18 Dose: 3 ml Documented by: Amlodipine Besylate (Amlodipine Besylate 5 Mg Tab) 10 mg PO QAM MARCIA Stop: 04/29/21 08:59 Last Admin: 04/18/21 09:01 Dose: 10 mg Documented by: Atropine Sulfate (Atropine Sulfate 0.1 Mg/Ml 10ml Syr) 1 mg IV .KEEP AT BEDSIDE PRN PRN Reason: AT BEDSIDE PLEASE Clonazepam (Clonazepam 0.25 Mg Tab) 0.25 mg PO BID MARCIA Stop: 05/15/21 20:59 Last Admin: 04/18/21 09:01 Dose: 0.25 mg Documented by: Dextrose (Dextrose 50% 50 Ml Syringe) 25 - 50 ml IV UD PRN; Protocol PRN Reason: Hypoglycemia Protocol Stop: 05/12/21 10:44 Enoxaparin Sodium (Enoxaparin Inj 40 Mg/0.4 Ml Syr) 40 mg SQ QAM [facility] Stop: 05/16/21 09:14 Last Admin: 04/18/21 09:01 Dose: 40 mg Documented by: Enteral Nutritional Formula (Peptamen 1.5 Darrian 1,000 Ml Bag) 1,000 ml NG UD [facility]; Protocol Stop: 05/16/21 13:29 Last Admin: 04/17/21 16:44 Dose: 1,000 ml Documented by: Fentanyl Citrate (Fentanyl Citrate 100 Mcg/2 Ml Vial) 50 mcg IV Q30M PRN PRN Reason: pain unrelieved by Dilaudid Stop: 04/30/21 08:00 Last Admin: 04/16/21 08:38 Dose: 50 mcg Documented by: Glucagon (Glucagon For Inj 1 Mg Vial) 1 mg SQ UD PRN; Protocol PRN Reason: Hypoglycemia Protocol Stop: 05/12/21 10:44 Glucose (Glucose 40% Gel 15 Gm Tube) 15 - 30 gm PO UD PRN; Protocol PRN Reason: Hypoglycemia Protocol Stop: 05/12/21 10:44 Glucose (Glucose 10 Tabs/Tube) 4 - 8 tabs PO UD PRN; Protocol PRN Reason: Hypoglycemia Protocol Stop: 05/12/21 10:44 Hydralazine HCl (Hydralazine Hcl 20 Mg/Ml Vial) 10 mg IV Q6H PRN PRN Reason: hypertension Stop: 05/10/21 20:14 Last Admin: 04/16/21 12:52 Dose: 10 mg Documented by: Hydromorphone HCl (Hydromorphone Inj 1 Mg/Ml Syringe) 1 mg IV Q2H PRN PRN Reason: Pain Stop: 04/30/21 07:48 Last Admin: 04/18/21 05:18 Dose: 1 mg Documented by: Nicardipine HCl 50 mg/ (Dextrose) 250 mls @ 62.5 mls/hr IV .Q4H MARCIA; Protocol Stop: 05/14/21 08:59 Last Admin: 04/18/21 05:39 Dose: Not Given Documented by: Insulin Aspart (Insulin Aspart 100 Units/Ml 3 Ml Pen) 0 units SC 0000,0400,1200,1600,2000 [facility] Stop: 05/16/21 15:59 Last Admin: 04/18/21 11:57 Dose: 4 units Documented by: Lansoprazole (Lansoprazole 30 Mg Soltab) 30 mg OG BID MARCIA Stop: 04/27/21 20:59 Last Admin: 04/18/21 09:02 Dose: 30 mg Documented by: Levofloxacin (Levofloxacin 750 Mg Tab) 750 mg PO QAM [facility]; Protocol Stop: 05/04/21 09:01 Last Admin: 04/18/21 09:01 Dose: 750 mg Documented by: Losartan Potassium (Losartan Potassium 50 Mg Tab) 100 mg PO QAM [facility] Stop: 05/16/21 08:59 Last Admin: 04/18/21 09:01 Dose: 100 mg Documented by: Metronidazole (Metronidazole 500 Mg Tab) 500 mg PO Q8H MARCIA; Protocol Stop: 05/05/21 00:01 Last Admin: 04/18/21 09:01 Dose: 500 mg Documented by: Midazolam HCl (Midazolam Hcl 1 Mg/Ml 2ml Vial) 2 mg IV Q2H PRN PRN Reason: Agitation Stop: 05/14/21 02:18 Last Admin: 04/17/21 20:41 Dose: 2 mg Documented by: Miscellaneous (Carbohydrates For Hypoglycemia ) 15 - 30 gm PO UD PRN PRN Reason: Hypoglycemia Treatment Stop: 05/12/21 10:44 Miscellaneous (Pending Order: Resume Tube Feeds At 1100) 1 ea N/A DAILY@1100 [facility] Stop: 05/17/21 10:59 Last Admin: 04/18/21 11:30 Dose: 1 ea Documented by: Multi-Ingredient Cream (Artificial Tears Op Oint 3.5 Gm Tube) 1 appln OP Q4 PRN PRN Reason: DRY EYES Stop: 04/26/21 08:59 Nystatin (Nystatin Susp 500,000 U/5 Ml Udc) 10 ml PO TID MARCIA Stop: 04/26/21 13:59 Last Admin: 04/18/21 14:45 Dose: 10 ml Documented by: Sennosides (Sennosides 8.8 Mg/5 Ml Udc) 17.6 mg PO BID PRN PRN Reason: CONSTIPATION Stop: 05/06/21 20:59 Sterile Water (Tube Feeding Water Flush) 250 ml GT Q6H [facility] Stop: 05/16/21 17:59 Last Admin: 04/18/21 11:58 Dose: 250 ml Documented by: PG Care Time/CCT Total # of Minutes Spent Total Time Spent with Patient: Total time spent is greater than 50% in coordination of care (as documented) at patient's floor/unit and/or counseling patient: Coding Level of Care Code 39496 Subseq Hosp Care Lvl 3 Diagnoses Acute respiratory failure with hypoxia J96.01 AMS (altered mental status) R41.82 Fever R50.9 Cerebral parenchymal hemorrhage I61.9 Bradycardia R00.1 SVT (supraventricular tachycardia) I47.1 Pneumonia due to COVID-19 virus U07.1; J12.82 Hypertension I10 Hypokalemia E87.6 BPH loc w urin obs/LUTS N40.1 Lung abscess J85.2 Pancreatitis K85.90
[2021-04-18] MEDS: PEPTAMEN 1.5 CAL 1,000 ML BAG NG SCH (15:59)
[2021-04-18] MEDS: MIDAZOLAM HCL 1 MG/ML 2ML VIAL IV PRN (22:45)
[2021-04-19] MEDS: INSULIN ASPART 100 UNITS/ML 3 ML PEN SC SCH ×5 (00:37→20:19)
[2021-04-19] MEDS: metroNIDAZOLE 500 MG TAB PO SCH ×3 (00:38→16:24)
[2021-04-19] MEDS: TUBE FEEDING WATER FLUSH GT SCH ×4 (00:38→18:36)
[2021-04-19] MEDS: HYDROmorphone INJ 1 MG/ML SYRINGE IV PRN (01:44)
[2021-04-19 05:31] LABS: Basophils # (auto) 0.02 K/uL (0-0.2); Basophils % (auto) 0.2 %; Eosinophils # (auto) 0.22 K/uL (0-0.5); Eosinophils % (auto) 1.7 %; Hematocrit (blood only) 26.6 % (42-52); Hemoglobin 8.4 g/dL (14.0-18.0); Immature Granulocytes # (auto) 0.17 K/uL (0.00-0.02); Immature Granulocytes % (auto) 1.3 %; Lymphocytes # (auto) 1.65 K/uL (1.2-3.4); Lymphocytes % (auto) 12.9 %; Mean Corpuscular Hemoglobin 29.9 pg (25-34); Mean Corpuscular Hgb Conc 31.6 g/dL (32-36); Mean Corpuscular Volume 94.7 fL (80-100); Monocytes # (auto) 0.26 K/uL (0.11-0.59); Neutrophils # (auto) 10.45 K/uL (1.4-6.5); Neutrophils % (auto) 81.9 %; Platelet Count 425 K/uL (130-400); RDW Coefficient of Variation 15.1 % (11.5-14.5); RDW Standard Deviation 51.5 fL (36.4-46.3); Red Blood Count 2.81 M/uL (4.7-6.1); White Blood Count 12.77 K/uL (4.8-10.8)
[2021-04-19 06:03] LABS: BUN Creatinine Ratio 29.2 (10-20); Calcium 7.9 mg/dl (8.5-10.1); Creatinine Clr Calc Pharmacy 83.1 ml/min; Est GFR (African American) 76.5 ml/min; Magnesium 2.4 mg/dl (1.8-2.4); Phosphorus 2.7 mg/dl (2.5-4.9); Potassium 3.8 mmol/L (3.5-5.1)
[2021-04-19] MEDS: ENOXAPARIN INJ 40 MG/0.4 ML SYR SQ SCH (09:06)
[2021-04-19] MEDS: ACETAMINOPHEN 500 MG TAB PO PRN (09:07)
[2021-04-19] MEDS: NYSTATIN SUSP 500,000 U/5 ML UDC PO SCH ×3 (09:07→20:02)
[2021-04-19] MEDS: levoFLOXacin 750 MG TAB PO SCH (09:07)
[2021-04-19] MEDS: clonazePAM 0.25 MG TAB PO SCH (09:08)
[2021-04-19] MEDS: LANSOPRAZOLE 30 MG SOLTAB OG SCH ×2 (09:08→20:02)
[2021-04-19] MEDS: amLODIPine BESYLATE 5 MG TAB PO SCH (09:08)
[2021-04-19] MEDS: LOSARTAN POTASSIUM 50 MG TAB PO SCH (09:08)
--- NOTE | 2021-04-19 09:24 | Critical Care Progress Note ---
Date of Service April 19, 2021 Assessment & Plan (1) Acute respiratory failure with hypoxia: Plan: Reason Critically Ill: 61-year-old male with past medical history of hypertension admitted to the hospital for COVID-19 pneumonia and acute hypoxic respiratory failure, intubated 03/27/2021 PLAN: NEURO: Awake and alert. Following complex commands EEG without epileptiform activity. MRI brain 04/14/2021 with no significant change in the 5 mm hemorrhagic focus within the periventricular right frontoparietal region. Brain MRA 04/14/2021 unremarkable. Maintain systolic blood pressures 140-160 per neurology. Appreciate neurology consultation. Echo without findings of embolic phenomenon. Stop benzodiazepine every 12, -oxycodone as needed for opioid withdrawal -Prednisone 5 mg x 5 days for gout flare -Uric acid ordered for the morning RESPIRATORY: VDRF with acute hypoxic respiratory failure, secondary to multilobar COVID-19 pneumonia - COVID-19 PCR positive 03/16/2021, remains positive as of 04/07/21 - S/p Tocilizumab 03/21/2021 - Intubated 03/27/2021; tracheostomy performed 04/05/21 -Tolerating trach collar trials back on pressure support and evening. S/p ARDS net high-dose steroid protocol - Dexamethasone 20mg x5 days, 10mg x5 days -- completed on 04/06 Pneumomediastinum--> resolved Lung abscess on CT 04/09 Right-sided pleural effusion -Status post thoracentesis 04/09; cultures negative thus far. Status post bronchoscopy 04/16/2021. Cultures and cytology sent for BAL fluid. Mild to moderate amount of thick white secretions noted and aspirated. [id number] ultrasound performed of the right pleural effusion 04/16/2021. Loculation seen. Effusion small. Cough -Dextromethorphan as needed CARDIOVASCULAR: Paroxysmal atrial fibrillation with RVR: Currently normal sinus rhythm. Episode of SVT evening of 04/07, 04/09: Resolved Intermittent episodes of bradycardia noted with suctioning. EKG checked 04/12/2021. QTc interval 495 ms. Metoprolol on hold due to episodes of bradycardia. Continue calcium channel dar. Losartan added ID: Lung abscess- will require 4 to 6 weeks of antibiotic therapy for the pulmonary abscess. - Sputum cultures with Group G Beta strep. Repeat sputum cultures negative thus far. -Continue with Flagyl and levofloxacin Bacteremia - Repeat blood cultures 04/08 with 1 bottle growing coag negative staph: Suspect contaminant -Repeat blood cultures remain negative Cultures from BAL fluid sent 04/16/2021 --> negative to date GI/Nutrition: Transaminitis -resolved Elevated lipase: Resolved Necrotizing pancreatitis Continue tube feeds. Renal: Hypernatremia resolved. Replace electrolytes as needed Heme: Anemia secondary to bone marrow suppression of disease process Endocrine: ICU hyperglycemia protocol --Prophylaxis VTE: Lovenox for DVT prophylaxis restarted 04/16/2021. GI: Lansoprazole Lines: PIV, Rogers Patient will benefit from LTAC placement. -Work with case management Aggressive physical therapy and Occupational Therapy Patient's Mrs. Emperatriz Neri [phone]. (2) Pneumonia due to COVID-19 virus: (3) Pulmonary abscess: (4) AMS (altered mental status): (5) Cerebral parenchymal hemorrhage: (6) Encephalopathy: (7) Hypernatremia: Admission and Anticipated Discharge Date Admission Date: March 20, 2021 Subjective No overnight events, complaints of right great toe pain secondary to history of gout Review of Systems Review of Systems: As per the HPI Physical Exam Physical Exam: General: Glascow Coma Scale: Eyes: 4 spontaneous, Verbal 1T, Motor 6, Total 10T, alert and oriented Skin: Warm, dry, Head: Small area of skin breakdown on right face secondary to tube control device: Improving Ears, nose, mouth and throat: airway patent, tracheostomy tube in place Cardiovascular: Normal peripheral perfusion Respiratory: No respiratory distress, on trach collar Gastrointestinal: Non distended Musculoskeletal: No deformity, trace edema Results & Data Results & Data ([facility]) Vital Signs (Past 12 Hours) Vital Signs Temp Pulse Resp BP Pulse Ox 04/19/21 07:03 85 28 H 89 L 04/19/21 05:57 78 26 H 138/64 94 04/19/21 05:27 37.0 C 04/19/21 04:57 80 26 H 115/63 94 04/19/21 03:57 86 28 H 128/65 90 04/19/21 03:04 76 28 H 90 04/19/21 02:57 84 30 H 113/67 89 L 04/19/21 02:00 78 25 H 118/65 100 04/19/21 01:59 74 25 H 118/65 100 04/19/21 00:57 83 34 H 128/67 95 04/19/21 00:00 37.3 C 79 04/18/21 23:57 86 29 H 128/65 94 04/18/21 23:15 85 30 H 91 04/18/21 22:57 86 36 H 118/63 90 04/18/21 21:57 87 25 H 121/62 92 Laboratory Results 04/19/21 04/19/21 04/19/21 Range/Units 05:25 05:25 03:47 WBC 12.77 H (4.8-10.8) K/uL RBC 2.81 L (4.7-6.1) M/uL Hgb 8.4 L (14.0-18.0) g/dL Hct 26.6 L (42-52) % MCV 94.7 (80-100) fL MCH 29.9 (25-34) pg MCHC 31.6 L (32-36) g/dL RDW Std Deviation 51.5 H (36.4-46.3) fL RDW Coeff of Sujit 15.1 H (11.5-14.5) % Plt Count 425 H (130-400) K/uL MPV 10.0 (7.4-10.4) fL Immature Gran % (Auto) 1.3 % Neut % (Auto) 81.9 % Lymph % (Auto) 12.9 % [place] % (Auto) 2.0 % Eos % (Auto) 1.7 % Baso % (Auto) 0.2 % Neut # (Auto) 10.45 H (1.4-6.5) K/uL Lymph # (Auto) 1.65 (1.2-3.4) K/uL [place] # (Auto) 0.26 (0.11-0.59) K/uL Eos # (Auto) 0.22 (0-0.5) K/uL Baso # (Auto) 0.02 (0-0.2) K/uL Immature Gran # (Auto) 0.17 H (0.00-0.02) K/uL Sodium 145 (136-145) mmol/L Potassium 3.8 (3.5-5.1) mmol/L Chloride 109 H (98-107) mmol/L Carbon Dioxide 34 H (21-32) mmol/L Anion Gap 2.0 L (3-11) BUN 35 H (7-18) mg/dl Creatinine 1.19 D (0.6-1.4) mg/dl Est Cr Clr Drug Dosing 83.1 ml/min Est GFR ( Amer) 76.5 ml/min Est GFR (Non-Af Amer) 66.0 ml/min BUN/Creatinine Ratio 29.2 H (10-20) Glucose 167 H (70-99) mg/dl POC Glucose 126 H (70-99) mg/dl Calcium 7.9 L (8.5-10.1) mg/dl Phosphorus 2.7 (2.5-4.9) mg/dl Magnesium 2.4 (1.8-2.4) mg/dl Specimen Hemolysis 04/19/21 04/18/21 04/18/21 Range/Units 00:31 20:15 15:58 WBC (4.8-10.8) K/uL RBC (4.7-6.1) M/uL Hgb (14.0-18.0) g/dL Hct (42-52) % MCV (80-100) fL MCH (25-34) pg MCHC (32-36) g/dL RDW Std Deviation (36.4-46.3) fL RDW Coeff of Sujit (11.5-14.5) % Plt Count (130-400) K/uL MPV (7.4-10.4) fL Immature Gran % (Auto) % Neut % (Auto) % Lymph % (Auto) % [place] % (Auto) % Eos % (Auto) % Baso % (Auto) % Neut # (Auto) (1.4-6.5) K/uL Lymph # (Auto) (1.2-3.4) K/uL [place] # (Auto) (0.11-0.59) K/uL Eos # (Auto) (0-0.5) K/uL Baso # (Auto) (0-0.2) K/uL Immature Gran # (Auto) (0.00-0.02) K/uL Sodium (136-145) mmol/L Potassium (3.5-5.1) mmol/L Chloride (98-107) mmol/L Carbon Dioxide (21-32) mmol/L Anion Gap (3-11) BUN (7-18) mg/dl Creatinine (0.6-1.4) mg/dl Est Cr Clr Drug Dosing ml/min Est GFR ( Amer) ml/min Est GFR (Non-Af Amer) ml/min BUN/Creatinine Ratio (10-20) Glucose (70-99) mg/dl POC Glucose 149 H 141 H 172 H (70-99) mg/dl Calcium (8.5-10.1) mg/dl Phosphorus (2.5-4.9) mg/dl Magnesium (1.8-2.4) mg/dl Specimen Hemolysis 04/18/21 Range/Units 11:38 WBC (4.8-10.8) K/uL RBC (4.7-6.1) M/uL Hgb (14.0-18.0) g/dL Hct (42-52) % MCV (80-100) fL MCH (25-34) pg MCHC (32-36) g/dL RDW Std Deviation (36.4-46.3) fL RDW Coeff of Sujit (11.5-14.5) % Plt Count (130-400) K/uL MPV (7.4-10.4) fL Immature Gran % (Auto) % Neut % (Auto) % Lymph % (Auto) % [place] % (Auto) % Eos % (Auto) % Baso % (Auto) % Neut # (Auto) (1.4-6.5) K/uL Lymph # (Auto) (1.2-3.4) K/uL [place] # (Auto) (0.11-0.59) K/uL Eos # (Auto) (0-0.5) K/uL Baso # (Auto) (0-0.2) K/uL Immature Gran # (Auto) (0.00-0.02) K/uL Sodium (136-145) mmol/L Potassium (3.5-5.1) mmol/L Chloride (98-107) mmol/L Carbon Dioxide (21-32) mmol/L Anion Gap (3-11) BUN (7-18) mg/dl Creatinine (0.6-1.4) mg/dl Est Cr Clr Drug Dosing ml/min Est GFR ( Amer) ml/min Est GFR (Non-Af Amer) ml/min BUN/Creatinine Ratio (10-20) Glucose (70-99) mg/dl POC Glucose 136 H (70-99) mg/dl Calcium (8.5-10.1) mg/dl Phosphorus (2.5-4.9) mg/dl Magnesium (1.8-2.4) mg/dl Specimen Hemolysis Coding Level of Care Code 79828 Subseq Hosp Care Lvl 3 Diagnoses Acute respiratory failure with hypoxia J96.01 Pneumonia due to COVID-19 virus U07.1; J12.82 Pulmonary abscess J85.2 AMS (altered mental status) R41.82 Cerebral parenchymal hemorrhage I61.9 Encephalopathy G93.40 Hypernatremia E87.0 Comment add ventilatory management code
--- NOTE | 2021-04-19 09:30 | Palliative Care Progress Note ---
Date of Service April 19, 2021 Assessment & Plan (1) Palliative care encounter: Plan: Patient had a bronchoscopy on Monday at the bedside. Over the weekend, his mental status has shown significant improvement. He is now able to open his eyes, follow commands and mouth some words. He has been tolerating either CPAP or trach collar for the past 48 hours. Overnight, he still goes back on CPAP or A/C with rate to allow him to rest. Today, he worked with physical therapy and tolerated it well. Planning to do a dangle at the bedside in coming days. Case management working on LTACH referral/placement. I did reach out to the patients , Halle, at [phone], and provided her with an update. She explained how she and her two sons were able to visit on Monday and she stated that it was good for all of them. She is hopeful for his recovery, understanding the lengthy process that will take. Currently, he is listed as a conditional code with NO CPR, but OK for ACLS medications, cardioversion and defibrillation. I explained in detail to the family last week what the difference between cardioversion and defibrillation (pulse vs pulseless), along with medication use with both options. They plan to discuss internally as a family prior to making any changes with his code status, with them understanding that if he would sustain a pulseless arrest, that is is unlikely he would survive with solely defibrillation and that performing CPR. Now that Bill is awake more, we can have this conversation with him, but he is now pretty tired from physical therapy, will attempt later or tomorrow. Palliative Medicine will follow. (2) AMS (altered mental status): Plan: Improving. He is able to interact and follow simple commands. (3) Weakness: Plan: Expected weakness for a patient with 30 day inpatient ICU stay. PT/OT started today at bedside. Goal to start bedside dangle over next day or two Aggressive PT/OT expected at LTACH (4) Lung abscess: (5) Pancreatitis: (6) Pneumonia due to COVID-19 virus: Plan: Remains requiring ventilator at night Tolerating trach collar during the day Admission and Anticipated Discharge Date Admission Date: March 20, 2021 Subjective Pt awake, alert and oriented Pt on trach collar since 0800 PT working with patient. No complaints See A/P for further details Review of Systems Review of Systems: [place] System Assessment Scale: Pain: 0/3 SOB: 1/3 Tiredness: 1/3 Palliative Performance Scale: 40% Physical Exam Constitutional: + ill appearing, cooperative and comfortable Respiratory: + cough Cardiovascular: Rate/Rhythm: regular rate and regular rhythm Extremities: + edema Gastrointestinal (Abdomen): Inspection/Auscultation: abdomen normal to inspection Skin: + skin tightening and + ecchymosis Psychiatric: Orientation: alert and oriented x 3 Insight: good insight Judgement: good judgement Results & Data ([facility]) Vital Signs (Past 12 Hours) Vital Signs Temp Pulse Resp BP Pulse Ox 04/19/21 07:03 85 28 H 89 L 04/19/21 05:57 78 26 H 138/64 94 04/19/21 05:27 37.0 C 04/19/21 04:57 80 26 H 115/63 94 04/19/21 03:57 86 28 H 128/65 90 04/19/21 03:04 76 28 H 90 04/19/21 02:57 84 30 H 113/67 89 L 04/19/21 02:00 78 25 H 118/65 100 04/19/21 01:59 74 25 H 118/65 100 04/19/21 00:57 83 34 H 128/67 95 04/19/21 00:00 37.3 C 79 04/18/21 23:57 86 29 H 128/65 94 04/18/21 23:15 85 30 H 91 04/18/21 22:57 86 36 H 118/63 90 04/18/21 21:57 87 25 H 121/62 92 PG Care Time/CCT Total # of Minutes Spent Total Time Spent with Patient: Total time spent is greater than 50% in coordination of care (as documented) at patient's floor/unit and/or counseling patient: 45 minutes with > 50% of that time spent assessing the patient, discussing goals of care and collaborating with IDT Coding Level of Care Code 92231 Subseq Hosp Care Lvl 3 Diagnoses Palliative care encounter Z51.5 AMS (altered mental status) R41.82 Weakness R53.1 Lung abscess J85.2 Pancreatitis K85.90 Pneumonia due to COVID-19 virus U07.1; J12.82 Time Spent (min) 45
[2021-04-19] MEDS ORDERED: TUBE FEEDING WATER FLUSH GT SCH (10:03)
[2021-04-19] MEDS ORDERED: guaiFENesin/DEXTROM SYRUP 200MG/20MG 10ML UDC PO PRN (10:26)
[2021-04-19] MEDS: predniSONE 5 MG TAB PO SCH (11:26)
--- NOTE | 2021-04-19 16:06 | Hospitalist Progress Note ---
Date of Service April 19, 2021 Assessment & Plan (1) Acute respiratory failure with hypoxia: Plan: due to COVID 19 pneumonia, bilateral infiltrates on CXR Was requiring prone positioning and BiPAP while awake, but then weaned down to wall high flow nasal cannula at 11-15 L on 03/23 However, on 03/24 worsened again was placed back on Vapotherm high flow nasal cannula On 03/25, requiring higher amounts of oxygen at 40 L and up to 80 % FiO2 to maintain pulse ox 90-91% On 03/26 switched to Ventilator HFNC at 60L, 100% FiO2 to keep POx>88%---> continued to decompensate on the morning of 03/27 and was intubated and proned He was not a candidate for ECMO Previously had pneumomediastinum which is now resolved Status post tocilizumab on 03/21 Completed a course of high-dose dexamethasone initially with 10 mg daily and then on 03/28, increased to 20 mg daily x5 days, then 10 mg daily x5 days Ventilator management as per loan review manager status post tracheostomy on 04/05 Continues to be able to tolerate trach collar during the day since 04/18, and on ventilatory support overnight, with transition through CPAP. This is a big improvement from just the beginning of the week when he was on full ventilatory support Klonopin q12 is now discontinued as of 04/19 Dilaudid PRN for opiate withdrawal has high respiratory drive due to fibrosis from ARDS and opiate withdrawal Lasix drip to provide diuresis, CR rising, now Lasix drip on hold-still remains quite edematous-consider restarting Lasix (2) AMS (altered mental status): Plan: Now significantly improved/resolved since 04/17 he is oriented, following commands, visiting with family etiologies include: ICU delirium, hypernatremia, fevers, infection, elevated ammonia ammonia was > 40, started on lactulose, now stopped Na is down to normal, peaked at 157 on Thursday 04/12 fevers? infection is covered, could be central fevers with small parenchymal hemorrhage all sedation is off at this point, of disc continue Klonopin on 04/19 (3) Fever: Plan: Fevers started on 04/02, then resolved UA normal on 04/02 CXR with persistent infiltrates, sputum culture with group C beta strep blood cultures - no growth from 04/02, but blood cultures positive on 04/09 for coagulase-negative Staphylococcus in 1/2 sets-likely contaminant Blood cultures 04/10-no growth to date He then continued with persistent fevers from 04/05-04/10 acute sinusitis/large mastoid effusions seen on MRI brain With right lung abscess on CT chest on 04/09--negative AFB, culture no growth to date right pleural effusion - thoracentesis, pleural culture negative Central and arterial lines have been removed and replaced with peripheral IVs Dopplers of lower extremities negative for DVT CT chest/abdomen/pelvis significant for lung abscess, necrotizing pancreatitis b ut lipase normal MRIs of cervical/thoracic/lumbar spine without epidural abscess or discitis MRSA swab remains negative - continue Levaquin and Flagyl, was started 04/07, will need 4-6 weeks to treat p ossible lung abscess echo: EF 70%, no vegetations, normal valves Fevers are now resolved (4) Cerebral parenchymal hemorrhage: Plan: new finding on CT head on 04/13 small, 5mm area right parietal lobe, also with trace subarachnoid hemorrhage left frontal lobe repeat head CT 04/13 and 04/14 with stable hemorrhage neurology consulted, likely bleed in setting of hypertension, Lovenox MRI brain and MRA brain on 04/14: unchanged right 5mm parenchymal hemorrhage, normal angiography no further imaging planned unless mental status changes Has since been restarted on SQ Lovenox (5) Bradycardia: Plan: with sinus terry initially while on BIPAP prior to intubation HR dropped to 20's on 04/12, required atropine, pacer pads on stop metoprolol due to frequent pauses now on CCB for SVT Has had some significant sinus pauses at times which seem to have improved now (6) SVT (supraventricular tachycardia): Plan: Had SVT to the 200s on the evening of 04/07 with associated hypotension requiring esmolol, amiodarone, adenosine x3, synchronized cardioversion x5 Also had further atrial fibrillation on 04/07 and again on the night of 04/09 Now back in normal sinus rhythm stopped metoprolol 25mg BID due to pauses started on CCB Continue to replace electrolytes as needed (7) Pneumonia due to COVID-19 virus: Plan: completed treatment with dexamethasone received Tocilizumab removed from neg pressure isolation 04/15 (8) Hypertension: Plan: Had significant hypertension which is now much improved since restarting home losartan 100 mg p.o. once daily -Continue amlodipine 10mg daily (9) Hypokalemia: Plan: monitor daily, ICU replacement protocol (10) BPH loc w urin obs/LUTS: Plan: Rogers catheter in place Will need to rule move Rogers catheter once he is more mobile (11) Lung abscess: Plan: As above Status post aspiration Follow cultures-no growth to date Continue levofloxacin, metronidazole for 4-6 weeks total (12) Pancreatitis: Plan: Visualized on CT of the abdomen with suspected necrotizing pancreatitis Lipase normal, triglycerides improving Difficult to tell patient is having pain Continue tube feeds (13) Gout: Plan: Complaint of pain in the great toe on 04/19 Was started on prednisone 5 mg p.o. once daily x5-day course Plan: DVT prophylaxis: SCD, Lovenox Disposition: Continued stay in ICU, prognosis is improving a lot each day, best day today in a long time ultimately will need LTACH-removal CODE STATUS: conditional code Admission and Anticipated Discharge Date Admission Date: March 20, 2021 Subjective Pt awake and alert, interactive. Mouthing answers to me but did receive a Passy speaking valve today. He was AC overnight and CPAP this AM x 1 hr, now on trach collar. Worked with PT today and got to side of bed. Has remained in sinus rhythm on tele Review of Systems Review of Systems: All systems reviewed & are unremarkable except as noted in HPI & below Physical Exam Constitutional: WD/WN, vitals as above Eyes: + anicteric sclerae ENMT: Nose: + external nose abnormality (NG tube in place) Neck: trachea midline, no thyromegaly (With tracheostomy tube in place) Respiratory: normal respiratory effort, lungs clear to auscultation (Except some occasional rhonchi) Cardiovascular: Rate/Rhythm: regular rate and regular rhythm Heart Sounds: no murmur Extremities: + edema (2+ pitting edema in all extremities) Chest (Breasts): Chest: normal inspection of chest Gastrointestinal (Abdomen): normal bowel sounds, soft, nontender, no hepatosplenomegaly Musculoskeletal: Extremities: extremities normal to inspection; no cyanosis and no clubbing Skin: no rashes, warm and dry Neurologic: moves all extremities and awake; no focal motor deficits Results & Data Results & Data ([facility]) Vital Signs (Past 12 Hours) Vital Signs Temp Pulse Resp BP Pulse Ox Pulse Ox Pulse Ox 04/19/21 13:57 76 12 118/62 88 L 04/19/21 12:57 80 37 H 130/70 89 L 04/19/21 12:29 37.8 C H 04/19/21 11:57 83 29 H 126/68 89 L 04/19/21 11:06 94 94 04/19/21 10:57 82 25 H 122/59 L 93 04/19/21 10:00 91 H 21 92 04/19/21 09:59 86 22 93 04/19/21 08:57 80 16 138/67 92 04/19/21 08:00 37.4 C 04/19/21 07:57 92 H 16 134/70 92 04/19/21 07:03 85 28 H 89 L 04/19/21 06:57 89 27 H 122/64 89 L 04/19/21 05:57 78 26 H 138/64 94 04/19/21 05:27 37.0 C 04/19/21 04:57 80 26 H 115/63 94 Pulse Ox 04/19/21 13:57 04/19/21 12:57 04/19/21 12:29 04/19/21 11:57 04/19/21 11:06 84 L 04/19/21 10:57 04/19/21 10:00 04/19/21 09:59 04/19/21 08:57 04/19/21 08:00 04/19/21 07:57 04/19/21 07:03 04/19/21 06:57 04/19/21 05:57 04/19/21 05:27 04/19/21 04:57 Laboratory Results 04/19/21 05:25 04/19/21 05:25 PG Care Time/CCT Total # of Minutes Spent Total Time Spent with Patient: Total time spent is greater than 50% in coordination of care (as documented) at patient's floor/unit and/or counseling patient: Coding Level of Care Code 48297 Subseq Hosp Care Lvl 3 Diagnoses Acute respiratory failure with hypoxia J96.01 AMS (altered mental status) R41.82 Fever R50.9 Cerebral parenchymal hemorrhage I61.9 Bradycardia R00.1 SVT (supraventricular tachycardia) I47.1 Pneumonia due to COVID-19 virus U07.1; J12.82 Hypertension I10 Hypokalemia E87.6 BPH loc w urin obs/LUTS N40.1 Lung abscess J85.2 Pancreatitis K85.90 Gout M10.9
[2021-04-19] MEDS: PEPTAMEN 1.5 CAL 1,000 ML BAG NG SCH (16:23)
[2021-04-19] MEDS: PROSOURCE NO CARB 30 ML/PKT NG SCH (20:02)
[2021-04-19] MEDS: oxyCODONE HCL IR 5 MG TAB (IMMEDIATE RELEASE) PO PRN (22:48)
[2021-04-20] MEDS: INSULIN ASPART 100 UNITS/ML 3 ML PEN SC SCH ×5 (00:33→20:19)
[2021-04-20] MEDS: metroNIDAZOLE 500 MG TAB PO SCH ×3 (00:34→16:17)
[2021-04-20] MEDS: TUBE FEEDING WATER FLUSH GT SCH ×4 (00:34→16:16)
[2021-04-20 05:23] LABS: Basophils # (auto) 0.02 K/uL (0-0.2); Basophils % (auto) 0.2 %; Eosinophils # (auto) 0.18 K/uL (0-0.5); Eosinophils % (auto) 1.7 %; Hematocrit (blood only) 27.9 % (42-52); Hemoglobin 8.6 g/dL (14.0-18.0); Immature Granulocytes # (auto) 0.22 K/uL (0.00-0.02); Immature Granulocytes % (auto) 2.1 %; Lymphocytes # (auto) 0.72 K/uL (1.2-3.4); Lymphocytes % (auto) 6.7 %; Mean Corpuscular Hemoglobin 29.3 pg (25-34); Mean Corpuscular Hgb Conc 30.8 g/dL (32-36); Mean Corpuscular Volume 94.9 fL (80-100); Monocytes # (auto) 0.83 K/uL (0.11-0.59); Monocytes % (auto) 7.8 %; Neutrophils % (auto) 81.5 %; Platelet Count 465 K/uL (130-400); RDW Coefficient of Variation 14.8 % (11.5-14.5); RDW Standard Deviation 51.1 fL (36.4-46.3); Red Blood Count 2.94 M/uL (4.7-6.1); White Blood Count 10.67 K/uL (4.8-10.8)
[2021-04-20 05:54] LABS: BUN Creatinine Ratio 31.4 (10-20); Calcium 8.1 mg/dl (8.5-10.1); Creatinine Clr Calc Pharmacy 89.9 ml/min; Est GFR (African American) 84.1 ml/min; Est GFR (Non-African American) 72.6 ml/min; Magnesium 2.5 mg/dl (1.8-2.4); Potassium 3.6 mmol/L (3.5-5.1); Uric Acid 4.6 mg/dl (2.6-7.2)
[2021-04-20] MEDS: [UNRECOGNIZED DRUG - REMARK] SCH (07:59)
[2021-04-20] MEDS: LOSARTAN POTASSIUM 50 MG TAB PO SCH (08:00)
[2021-04-20] MEDS: PROSOURCE NO CARB 30 ML/PKT NG SCH ×2 (08:00→20:19)
[2021-04-20] MEDS: amLODIPine BESYLATE 5 MG TAB PO SCH (08:00)
[2021-04-20] MEDS: LANSOPRAZOLE 30 MG SOLTAB OG SCH ×2 (08:00→20:19)
[2021-04-20] MEDS: levoFLOXacin 750 MG TAB PO SCH (08:00)
[2021-04-20] MEDS: NYSTATIN SUSP 500,000 U/5 ML UDC PO SCH ×3 (08:01→20:18)
[2021-04-20] MEDS: predniSONE 5 MG TAB PO SCH (08:02)
[2021-04-20] MEDS: ENOXAPARIN INJ 40 MG/0.4 ML SYR SQ SCH (08:02)
--- NOTE | 2021-04-20 08:43 | XRay Report ---
SINGLE VIEW CHEST CLINICAL HISTORY: Follow-up airspace consolidation. FINDINGS: An AP, portable, upright chest radiograph is compared to study dated 04/17/2021 and correlat ed with chest CT dated 04/09/2021. The examination is degraded by portable technique and patient rotat ion. A tracheostomy and enteric tube are unchanged in position. The heart is enlarged noting atherosc lerotic calcification of the thoracic aorta. Multifocal airspace consolidation has not significantly changed from 04/17/2021. There is a right pleural effusion which is at least partially loculated. No s ignificant pleural effusion is seen on the left. No pneumothorax is seen. The bony thorax is grossly intact. IMPRESSION: 1. Stable lines and tubes. 2. Cardiomegaly. 3. Findings of multifocal airspace consolidation and a loculated right pleural effusion have not sign ificantly changed as compared to 04/17/2021. ACT 112: Negative or not required by law. Electronically signed by: Talat Lea M.D. 04/20/2021 8:42 AM
--- NOTE | 2021-04-20 09:28 | Critical Care Progress Note ---
Date of Service April 20, 2021 Assessment & Plan (1) Acute respiratory failure with hypoxia: Plan: Reason Critically Ill: 61-year-old male with past medical history of hypertension admitted to the hospital for COVID-19 pneumonia and acute hypoxic respiratory failure, intubated 03/27/2021 PLAN: NEURO: Awake and alert. Following complex commands EEG without epileptiform activity. MRI brain 04/14/2021 with no significant change in the 5 mm hemorrhagic focus within the periventricular right frontoparietal region. Brain MRA 04/14/2021 unremarkable. - Echo without findings of embolic phenomenon. -oxycodone as needed for opioid withdrawal -Prednisone 5 mg x 5 days for gout flare -Uric acid ordered for the morning RESPIRATORY: VDRF with acute hypoxic respiratory failure, secondary to multilobar COVID-19 pneumonia - COVID-19 PCR positive 03/16/2021, remains positive as of 04/07/21 - S/p Tocilizumab 03/21/2021 - Intubated 03/27/2021; tracheostomy performed 04/05/21 -Tolerating trach collar trials back on pressure support and evening. S/p ARDS net high-dose steroid protocol - Dexamethasone 20mg x5 days, 10mg x5 days -- completed on 04/06 Continue Pressure support ventilation at night this evening. Pneumomediastinum--> resolved Lung abscess on CT 04/09 Right-sided pleural effusion -Status post thoracentesis 04/09; cultures negative thus far. Status post bronchoscopy 04/16/2021. Cultures and cytology sent for BAL fluid. Mild to moderate amount of thick white secretions noted and aspirated. [id number] ultrasound performed of the right pleural effusion 04/16/2021. Loculation seen. Effusion small. Cough -Dextromethorphan as needed CARDIOVASCULAR: Paroxysmal atrial fibrillation with RVR: Currently normal sinus rhythm. Episode of SVT evening of 04/07, 04/09: Resolved Intermittent episodes of bradycardia noted with suctioning. Metoprolol on hold due to episodes of bradycardia. Continue calcium channel dar. Losartan added ID: Lung abscess- will require 4 to 6 weeks of antibiotic therapy for the pulmonary abscess. - Sputum cultures with Group G Beta strep. Repeat sputum cultures negative thus far. -Continue with Flagyl and levofloxacin Bacteremia - Repeat blood cultures 04/08 with 1 bottle growing coag negative staph: Suspect contaminant -Repeat blood cultures remain negative Cultures from BAL fluid sent 04/16/2021 --> negative to date GI/Nutrition: Transaminitis -resolved Elevated lipase: Resolved Necrotizing pancreatitis - Stable Continue tube feeds. Renal: Hypernatremia resolved. Replace electrolytes as needed Heme: Anemia secondary to bone marrow suppression of disease process Endocrine: ICU hyperglycemia protocol --Prophylaxis VTE: Lovenox for DVT prophylaxis restarted 04/16/2021. GI: Lansoprazole Lines: PIV, Rogers Patient will benefit from LTAC placement. -Work with case management Aggressive physical therapy and Occupational Therapy Patient's Mrs. Emperatriz Neri [phone]. (2) Pneumonia due to COVID-19 virus: (3) Pulmonary abscess: (4) AMS (altered mental status): (5) Cerebral parenchymal hemorrhage: (6) Encephalopathy: (7) Hypernatremia: Admission and Anticipated Discharge Date Admission Date: March 20, 2021 Subjective Patient tolerated pressure support ventilation overnight. Physical Exam Physical Exam: General: Glascow Coma Scale: Eyes: 4 spontaneous, Verbal 1T, Motor 6, Total 10T, alert and oriented Skin: Warm, dry, Head: Small area of skin breakdown on right face secondary to tube control device: Improving Ears, nose, mouth and throat: airway patent, tracheostomy tube in place Cardiovascular: Normal peripheral perfusion Respiratory: No respiratory distress, on trach collar Gastrointestinal: Non distended Musculoskeletal: No deformity, trace edema Results & Data Results & Data ([facility]) Vital Signs (Past 12 Hours) Vital Signs Temp Pulse Pulse Resp BP Pulse Ox 04/20/21 07:21 82 18 94 04/20/21 06:31 37.7 C H 04/20/21 05:57 109 H 170/85 H 93 04/20/21 05:20 91 H 32 H 95 04/20/21 04:57 87 145/70 H 94 04/20/21 03:57 89 146/69 H 87 L 04/20/21 02:57 81 135/69 93 04/20/21 02:30 90 28 H 92 04/20/21 01:57 84 130/64 93 04/20/21 00:57 84 135/65 93 04/19/21 23:57 82 130/65 92 04/19/21 23:50 83 27 H 91 04/19/21 23:34 83 04/19/21 22:57 85 130/66 90 04/19/21 22:25 85 31 H 93 04/19/21 21:57 76 24 140/69 96 Laboratory Results 04/20/21 04/20/21 04/20/21 Range/Units 05:12 04:54 04:54 WBC 10.67 (4.8-10.8) K/uL RBC 2.94 L (4.7-6.1) M/uL Hgb 8.6 L (14.0-18.0) g/dL Hct 27.9 L (42-52) % MCV 94.9 (80-100) fL MCH 29.3 (25-34) pg MCHC 30.8 L (32-36) g/dL RDW Std Deviation 51.1 H (36.4-46.3) fL RDW Coeff of Sujit 14.8 H (11.5-14.5) % Plt Count 465 H (130-400) K/uL MPV 10.0 (7.4-10.4) fL Immature Gran % (Auto) 2.1 % Neut % (Auto) 81.5 % Lymph % (Auto) 6.7 % Platte % (Auto) 7.8 % Eos % (Auto) 1.7 % Baso % (Auto) 0.2 % Neut # (Auto) 8.70 H (1.4-6.5) K/uL Lymph # (Auto) 0.72 L (1.2-3.4) K/uL Platte # (Auto) 0.83 H (0.11-0.59) K/uL Eos # (Auto) 0.18 (0-0.5) K/uL Baso # (Auto) 0.02 (0-0.2) K/uL Immature Gran # (Auto) 0.22 H (0.00-0.02) K/uL Sodium 144 (136-145) mmol/L Potassium 3.6 (3.5-5.1) mmol/L Chloride 108 H (98-107) mmol/L Carbon Dioxide 32 (21-32) mmol/L Anion Gap 4.0 (3-11) BUN 35 H (7-18) mg/dl Creatinine 1.10 (0.6-1.4) mg/dl Est Cr Clr Drug Dosing 89.9 ml/min Est GFR ( Amer) 84.1 ml/min Est GFR (Non-Af Amer) 72.6 ml/min BUN/Creatinine Ratio 31.4 H (10-20) Glucose 153 H (70-99) mg/dl POC Glucose 156 H (70-99) mg/dl Uric Acid 4.6 (2.6-7.2) mg/dl Calcium 8.1 L (8.5-10.1) mg/dl Phosphorus 3.0 (2.5-4.9) mg/dl Magnesium 2.5 H (1.8-2.4) mg/dl 04/20/21 04/19/21 04/19/21 Range/Units 00:30 20:06 16:22 WBC (4.8-10.8) K/uL RBC (4.7-6.1) M/uL Hgb (14.0-18.0) g/dL Hct (42-52) % MCV (80-100) fL MCH (25-34) pg MCHC (32-36) g/dL RDW Std Deviation (36.4-46.3) fL RDW Coeff of Sujit (11.5-14.5) % Plt Count (130-400) K/uL MPV (7.4-10.4) fL Immature Gran % (Auto) % Neut % (Auto) % Lymph % (Auto) % Platte % (Auto) % Eos % (Auto) % Baso % (Auto) % Neut # (Auto) (1.4-6.5) K/uL Lymph # (Auto) (1.2-3.4) K/uL Platte # (Auto) (0.11-0.59) K/uL Eos # (Auto) (0-0.5) K/uL Baso # (Auto) (0-0.2) K/uL Immature Gran # (Auto) (0.00-0.02) K/uL Sodium (136-145) mmol/L Potassium (3.5-5.1) mmol/L Chloride (98-107) mmol/L Carbon Dioxide (21-32) mmol/L Anion Gap (3-11) BUN (7-18) mg/dl Creatinine (0.6-1.4) mg/dl Est Cr Clr Drug Dosing ml/min Est GFR ( Amer) ml/min Est GFR (Non-Af Amer) ml/min BUN/Creatinine Ratio (10-20) Glucose (70-99) mg/dl POC Glucose 179 H 145 H 167 H (70-99) mg/dl Uric Acid (2.6-7.2) mg/dl Calcium (8.5-10.1) mg/dl Phosphorus (2.5-4.9) mg/dl Magnesium (1.8-2.4) mg/dl 04/19/21 Range/Units 11:36 WBC (4.8-10.8) K/uL RBC (4.7-6.1) M/uL Hgb (14.0-18.0) g/dL Hct (42-52) % MCV (80-100) fL MCH (25-34) pg MCHC (32-36) g/dL RDW Std Deviation (36.4-46.3) fL RDW Coeff of Sujit (11.5-14.5) % Plt Count (130-400) K/uL MPV (7.4-10.4) fL Immature Gran % (Auto) % Neut % (Auto) % Lymph % (Auto) % Platte % (Auto) % Eos % (Auto) % Baso % (Auto) % Neut # (Auto) (1.4-6.5) K/uL Lymph # (Auto) (1.2-3.4) K/uL Platte # (Auto) (0.11-0.59) K/uL Eos # (Auto) (0-0.5) K/uL Baso # (Auto) (0-0.2) K/uL Immature Gran # (Auto) (0.00-0.02) K/uL Sodium (136-145) mmol/L Potassium (3.5-5.1) mmol/L Chloride (98-107) mmol/L Carbon Dioxide (21-32) mmol/L Anion Gap (3-11) BUN (7-18) mg/dl Creatinine (0.6-1.4) mg/dl Est Cr Clr Drug Dosing ml/min Est GFR ( Amer) ml/min Est GFR (Non-Af Amer) ml/min BUN/Creatinine Ratio (10-20) Glucose (70-99) mg/dl POC Glucose 127 H (70-99) mg/dl Uric Acid (2.6-7.2) mg/dl Calcium (8.5-10.1) mg/dl Phosphorus (2.5-4.9) mg/dl Magnesium (1.8-2.4) mg/dl Coding Level of Care Code 80344 Subseq Hosp Care Lvl 3 Diagnoses Acute respiratory failure with hypoxia J96.01 Pneumonia due to COVID-19 virus U07.1; J12.82 Pulmonary abscess J85.2 AMS (altered mental status) R41.82 Cerebral parenchymal hemorrhage I61.9 Encephalopathy G93.40 Hypernatremia E87.0
[2021-04-20] MEDS: oxyCODONE HCL IR 5 MG TAB (IMMEDIATE RELEASE) PO PRN ×2 (12:12→20:16)
--- NOTE | 2021-04-20 16:38 | Palliative Care Progress Note ---
Date of Service April 20, 2021 Assessment & Plan (1) Palliative care encounter: Plan: Juancho is showing significant improvements and strides, although he has a long way to go in his recovery. He has been tolerating trach collar today and was even OOB with the mechanical lift and PT/OT today. He does tire easily, but neurologically he does seem to be fully interactive and well. He was cleared by ST to advance his diet and he was able to tolerate full liquids today. Tomorrow, he will have the Passy valve in place and discussing code status will be important. He was able to have a good interaction on zoom today with his family. Case management working on LTACH placement. Once code status readdressed, which was discussed with the confectionery laboratory manager, we will likely follow more peripherally. Palliative Medicine will follow for now. (2) AMS (altered mental status): Plan: Improving. He is able to interact and follow simple commands. (3) Weakness: Plan: Expected weakness for a patient with 30 day inpatient ICU stay. PT/OT started this week. Was OOB via mechanical lift today with PT/OT Aggressive PT/OT expected to continue at LTACH (4) Lung abscess: (5) Pancreatitis: (6) Pneumonia due to COVID-19 virus: Plan: Remains requiring ventilator at night, has some anxiety with this. Tolerating trach collar during the day Admission and Anticipated Discharge Date Admission Date: March 20, 2021 Subjective Pt continues to improve each day. Tolerated trach collar most of the day. Was OOB with mechanical lift with PT. Answers yes/no and follows commands. ST cleared him for an advancing diet. Please see A/P for further details. Review of Systems Review of Systems: [place] System Assessment Scale: Pain: 1/3 SOB: 1/3 Tiredness: 1/3 Palliative Performance Scale: 50% Physical Exam Constitutional: + ill appearing, cooperative and comfortable Respiratory: + cough Cardiovascular: Rate/Rhythm: regular rate and regular rhythm Extremities: + edema Gastrointestinal (Abdomen): Inspection/Auscultation: abdomen normal to inspection Percussion/Palpation: + abdomen tender Skin: + skin tightening and + ecchymosis Psychiatric: Orientation: alert and oriented x 3 Insight: good insight Judgement: good judgement Results & Data ([facility]) Vital Signs (Past 12 Hours) Vital Signs Temp Pulse Pulse Resp BP Pulse Ox 04/20/21 16:01 37.1 C 81 24 129/64 95 04/20/21 14:30 89 23 92 04/20/21 14:03 89 24 95 04/20/21 13:00 86 23 123/66 97 04/20/21 12:00 36.9 C 96 H 32 H 140/68 96 04/20/21 11:00 91 H 27 H 147/68 H 86 L 04/20/21 10:00 94 H 24 141/65 H 90 04/20/21 09:00 77 24 142/67 H 91 04/20/21 08:00 37.0 C 87 159/78 H 98 04/20/21 07:50 87 95 04/20/21 07:21 82 18 94 04/20/21 06:57 87 155/65 H 94 04/20/21 06:31 37.7 C H 04/20/21 05:57 109 H 170/85 H 93 04/20/21 05:20 91 H 32 H 95 04/20/21 04:57 87 145/70 H 94 PG Care Time/CCT Total # of Minutes Spent Total Time Spent with Patient: Total time spent is greater than 50% in coordination of care (as documented) at patient's floor/unit and/or counseling patient: 35 minutes with > 50% of that time spent assessing the patient and collaborating with IDT Coding Level of Care Code 52531 Subseq Hosp Care Lvl 3 Diagnoses Palliative care encounter Z51.5 AMS (altered mental status) R41.82 Weakness R53.1 Lung abscess J85.2 Pancreatitis K85.90 Pneumonia due to COVID-19 virus U07.1; J12.82 Time Spent (min) 35
--- NOTE | 2021-04-20 17:55 | Hospitalist Progress Note ---
Date of Service April 20, 2021 Assessment & Plan (1) Acute respiratory failure with hypoxia: Plan: due to COVID 19 pneumonia, bilateral infiltrates on CXR Was requiring prone positioning and BiPAP while awake, but then weaned down to wall high flow nasal cannula at 11-15 L on 03/23 However, on 03/24 worsened again was placed back on Vapotherm high flow nasal cannula On 03/25, requiring higher amounts of oxygen at 40 L and up to 80 % FiO2 to maintain pulse ox 90-91% On 03/26 switched to Ventilator HFNC at 60L, 100% FiO2 to keep POx>88%---> continued to decompensate on the morning of 03/27 and was intubated and proned He was not a candidate for ECMO Previously had pneumomediastinum which is now resolved Status post tocilizumab on 03/21 Completed a course of high-dose dexamethasone initially with 10 mg daily and then on 03/28, increased to 20 mg daily x5 days, then 10 mg daily x5 days Ventilator management as per special education science teacher status post tracheostomy on 04/05 Doing much better since 04/18-tolerating pressure support trials at night and trach collar all day long NG tube removed on 04/20 and is tolerating full liquids diet after speech therapy evaluation Klonopin q12 is now discontinued as of 04/19 Dilaudid PRN for opiate withdrawal He is still having a lot of trouble sleeping-added magnesium, Ambien as needed Was on Lasix drip to provide diuresis, CR was rising, now Lasix drip on hold- still remains quite edematous-consider restarting Lasix (2) AMS (altered mental status): Plan: Now significantly improved/resolved since 04/17 he is oriented, following commands, visiting with family etiologies include: ICU delirium, hypernatremia, fevers, infection, elevated ammonia ammonia was > 40, started on lactulose, now stopped Na is down to normal, peaked at 157 on Thursday 04/12 Also did have a small parenchymal hemorrhage which was stable on repeat imaging Continue treating lung abscess with levofloxacin and metronidazole all sedation is off at this point-discontinued Klonopin on 04/19 (3) Fever: Plan: Fevers started on 04/02, then resolved UA normal on 04/02 CXR with persistent infiltrates, sputum culture with group C beta strep blood cultures - no growth from 04/02, but blood cultures positive on 04/09 for coagulase-negative Staphylococcus in 1/2 sets-likely contaminant Blood cultures 04/10-no growth to date He then continued with persistent fevers from 04/05-04/10 acute sinusitis/large mastoid effusions seen on MRI brain With right lung abscess on CT chest on 04/09--negative AFB, culture no growth to date right pleural effusion - thoracentesis, pleural culture negative Central and arterial lines have been removed and replaced with peripheral IVs Dopplers of lower extremities negative for DVT CT chest/abdomen/pelvis significant for lung abscess, necrotizing pancreatitis but lipase normal MRIs of cervical/thoracic/lumbar spine without epidural abscess or discitis MRSA swab remains negative - continue Levaquin and Flagyl, was started 04/07, will need 4-6 weeks to treat possible lung abscess-changed to p.o. antibiotics echo: EF 70%, no vegetations, normal valves Fevers are now resolved (4) Cerebral parenchymal hemorrhage: Plan: new finding on CT head on 04/13 small, 5mm area right parietal lobe, also with trace subarachnoid hemorrhage left frontal lobe repeat head CT 04/13 and 04/14 with stable hemorrhage neurology consulted, likely bleed in setting of hypertension, Lovenox MRI brain and MRA brain on 04/14: unchanged right 5mm parenchymal hemorrhage, normal angiography no further imaging planned unless mental status changes Has since been restarted on SQ Lovenox (5) Bradycardia: Plan: with sinus terry initially while on BIPAP prior to intubation HR dropped to 20's on 04/12, required atropine, pacer pads on stopped metoprolol due to frequent pauses Has had some significant sinus pauses at times which seem to have improved now (6) SVT (supraventricular tachycardia): Plan: Had SVT to the 200s on the evening of 04/07 with associated hypotension requiring esmolol, amiodarone, adenosine x3, synchronized cardioversion x5 Also had further atrial fibrillation on 04/07 and again on the night of 04/09 Now back in normal sinus rhythm ever since stopped metoprolol 25mg BID due to pauses Continue to replace electrolytes as needed (7) Pneumonia due to COVID-19 virus: Plan: completed treatment with dexamethasone received Tocilizumab removed from neg pressure isolation 04/15 (8) Hypertension: Plan: Had significant hypertension which is now much improved since restarting home losartan 100 mg p.o. once daily -Continue amlodipine 10mg daily (9) Hypokalemia: Plan: monitor daily, ICU replacement protocol (10) BPH loc w urin obs/LUTS: Plan: Rogers catheter in place Will need to rule move Rogers catheter once he is more mobile (11) Lung abscess: Plan: As above Status post aspiration Follow cultures-no growth to date Continue levofloxacin, metronidazole for 4-6 weeks total (12) Pancreatitis: Plan: Visualized on CT of the abdomen with suspected necrotizing pancreatitis Lipase normal, triglycerides improving He does have some mild abdominal pain but it is lower and is likely related to constipation Tube feeds discontinued and on full liquids diet (13) Gout: Plan: Complaint of pain in the great toe on 04/19, with erythema of the first MTP joint with tenderness Increase prednisone to 10 mg daily on 04/20 given ongoing pain Plan: DVT prophylaxis: SCD, Lovenox Disposition: Continued stay in ICU, prognosis is improving a lot each day, remarkable recovery ultimately will need LTACH-referral has been made CODE STATUS: conditional code Admission and Anticipated Discharge Date Admission Date: March 20, 2021 Subjective Patient tolerated pressure support ventilation overnight and then has been on trach collar 12 L all day long. He was out of bed to the chair via mechanical lift when I saw him later in the day. He was in very good spirits and had his speaking valve on and told me that he still having some pain in his right great toe from gout, and is requesting something for insomnia. He denied pain anywhere else, denies shortness of breath. He thinks he is moving his bowels. He has some occasional mild abdominal pains. He had his NG tube removed today and had a nasopharyngeal scope assessment with speech therapy and he was cleared for a diet without any restrictions. He has tolerated some full liquids so far. He was just finishing up a FaceTime call with his family and was in really good spirits. Review of Systems Review of Systems: All systems reviewed & are unremarkable except as noted in HPI & below Physical Exam Constitutional: WD/WN, vitals as above Eyes: + anicteric sclerae Neck: trachea midline, no thyromegaly (With tracheostomy tube in place) + tracheostomy present Respiratory: normal respiratory effort Auscultation: + diminished lung sounds (At right lower and middle lung hayden) and + crackles (Bilateral lower and middle lung hayden) Cardiovascular: Rate/Rhythm: regular rate and regular rhythm Heart Sounds: no murmur Extremities: + edema (2+ pitting edema in all extremities); no calf tenderness Chest (Breasts): Chest: normal inspection of chest Gastrointestinal (Abdomen): normal bowel sounds, soft, nontender, no hepatosplenomegaly Musculoskeletal: Extremities: + extremities abnormal to inspection (mild erythema over right first MTP joint with tenderness), no cyanosis and no clubbing Skin: no rashes, warm and dry Neurologic: awake Psychiatric: Orientation: alert, oriented to person, oriented to place and cooperative Results & Data Results & Data ([facility]) Vital Signs (Past 12 Hours) Vital Signs Temp Pulse Pulse Resp BP Pulse Ox 04/20/21 16:01 37.1 C 81 24 129/64 95 04/20/21 14:30 89 23 92 04/20/21 14:03 89 24 95 04/20/21 13:00 86 23 123/66 97 04/20/21 12:00 36.9 C 96 H 32 H 140/68 96 04/20/21 11:00 91 H 27 H 147/68 H 86 L 04/20/21 10:00 94 H 24 141/65 H 90 04/20/21 09:00 77 24 142/67 H 91 04/20/21 08:00 37.0 C 87 159/78 H 98 04/20/21 07:50 87 95 04/20/21 07:21 82 18 94 04/20/21 06:57 87 155/65 H 94 04/20/21 06:31 37.7 C H 04/20/21 05:57 109 H 170/85 H 93 Laboratory Results 04/20/21 04:54 04/20/21 04:54 Diagnostic Findings Chest x-ray is personally reviewed by me and agree with the following report: Chest X-Ray 04/20/21 07:00 SINGLE VIEW CHEST CLINICAL HISTORY: Follow-up airspace consolidation. FINDINGS: An AP, portable, upright chest radiograph is compared to study dated 04/17/2021 and correlated with chest CT dated 04/09/2021. The examination is degraded by portable technique and patient rotation. A tracheostomy and enteric tube are unchanged in position. The heart is enlarged noting atherosclerotic calcification of the thoracic aorta. Multifocal airspace consolidation has not significantly changed from 04/17/2021. There is a right pleural effusion which is at least partially loculated. No significant pleural effusion is seen on the left. No pneumothorax is seen. The bony thorax is grossly intact. IMPRESSION: 1. Stable lines and tubes. 2. Cardiomegaly. 3. Findings of multifocal airspace consolidation and a loculated right pleural effusion have not significantly changed as compared to 04/17/2021. ACT 112: Negative or not required by law. Electronically signed by: Talat Lea M.D. 04/20/2021 8:42 AM PG Care Time/CCT Total # of Minutes Spent Total Time Spent with Patient: Total time spent is greater than 50% in coordination of care (as documented) at patient's floor/unit and/or counseling patient: Coding Level of Care Code 49317 Subseq Hosp Care Lvl 3 Diagnoses Acute respiratory failure with hypoxia J96.01 AMS (altered mental status) R41.82 Fever R50.9 Cerebral parenchymal hemorrhage I61.9 Bradycardia R00.1 SVT (supraventricular tachycardia) I47.1 Pneumonia due to COVID-19 virus U07.1; J12.82 Hypertension I10 Hypokalemia E87.6 BPH loc w urin obs/LUTS N40.1 Lung abscess J85.2 Pancreatitis K85.90 Gout M10.9
[2021-04-20] MEDS: MAGNESIUM OXIDE 400 MG TAB PO SCH (20:17)
[2021-04-20] MEDS: ZINC SULFATE 220 MG CAPSULE PO SCH (20:20)
[2021-04-21] MEDS: metroNIDAZOLE 500 MG TAB PO SCH ×3 (00:26→16:50)
[2021-04-21] MEDS: INSULIN ASPART 100 UNITS/ML 3 ML PEN SC SCH ×5 (00:27→20:04)
[2021-04-21] MEDS: TUBE FEEDING WATER FLUSH GT SCH ×2 (00:27→05:17)
[2021-04-21] MEDS: ACETAMINOPHEN 325 MG TAB PO PRN ×3 (00:31→20:01)
[2021-04-21 05:06] LABS: Basophils # (auto) 0.01 K/uL (0-0.2); Basophils % (auto) 0.1 %; Eosinophils # (auto) 0.28 K/uL (0-0.5); Eosinophils % (auto) 2.5 %; Hematocrit (blood only) 26.7 % (42-52); Hemoglobin 8.3 g/dL (14.0-18.0); Immature Granulocytes # (auto) 0.23 K/uL (0.00-0.02); Immature Granulocytes % (auto) 2.1 %; Lymphocytes % (auto) 8.9 %; Mean Corpuscular Hemoglobin 29.4 pg (25-34); Mean Corpuscular Hgb Conc 31.1 g/dL (32-36); Mean Corpuscular Volume 94.7 fL (80-100); Mean Platelet Volume 9.3 fL (7.4-10.4); Monocytes # (auto) 0.87 K/uL (0.11-0.59); Monocytes % (auto) 7.8 %; Neutrophils # (auto) 8.82 K/uL (1.4-6.5); Neutrophils % (auto) 78.6 %; Platelet Count 475 K/uL (130-400); RDW Coefficient of Variation 14.8 % (11.5-14.5); Red Blood Count 2.82 M/uL (4.7-6.1); White Blood Count 11.21 K/uL (4.8-10.8)
[2021-04-21 05:33] LABS: BUN Creatinine Ratio 33.1 (10-20); Creatinine Clr Calc Pharmacy 98.9 ml/min; Est GFR (African American) 94.4 ml/min; Est GFR (Non-African American) 81.4 ml/min; Magnesium 2.5 mg/dl (1.8-2.4); Potassium 3.6 mmol/L (3.5-5.1)
[2021-04-21 05:35] LABS: Phosphorus 3.5 mg/dl (2.5-4.9)
--- NOTE | 2021-04-21 06:36 | Critical Care Progress Note ---
Date of Service April 21, 2021 Assessment & Plan (1) Acute respiratory failure with hypoxia: Plan: Reason Critically Ill: 61-year-old male with past medical history of hypertension admitted to the hospital for COVID-19 pneumonia and acute hypoxic respiratory failure, intubated 03/27/21, then with tracheostomy performed 04/05/21. Currently stable, awaiting LTACH placement. PLAN: NEURO: Awake and alert. Following complex commands. EEG without epileptiform activity. MRI brain 04/14/2021 with no significant change in the 5 mm hemorrhagic focus within the periventricular right frontoparietal region. Brain MRA 04/14/2021 unremarkable. Echo without findings of embolic phenomenon. Oxycodone as needed for opioid withdrawal Prednisone 5 mg x 5 days for gout flare RESPIRATORY: VDRF with acute hypoxic respiratory failure, secondary to multilobar COVID-19 pneumonia COVID-19 PCR positive 03/16/2021, remains positive as of 04/07/21 S/p Tocilizumab 03/21/2021 Intubated 03/27/2021; tracheostomy performed 04/05/21 Tolerating trach collar trials back on pressure support and evening. S/p ARDS net high-dose steroid protocol: Dexamethasone 20mg x5 days, 10mg x5 days -- completed on 04/[address] 04/09 with right-sided pleural effusion: Status post thoracentesis 04/09; cultures negative thus far. Status post bronchoscopy 04/16/2021. Cultures and cytology sent for BAL fluid. Cough Dextromethorphan as needed Pneumomediastinum: resolved CARDIOVASCULAR: Paroxysmal atrial fibrillation with RVR: Currently normal sinus rhythm. Episode of SVT evening of 04/07, 04/09: resolved Intermittent episodes of bradycardia noted with suctioning. Metoprolol on hold due to episodes of bradycardia. Continue calcium channel dar. Losartan added ID: Lung abscess- will require 4 to 6 weeks of antibiotic therapy for the pulmonary abscess. Sputum cultures with Group G Beta strep. Repeat sputum cultures negative thus far. Continue with Flagyl and levofloxacin Bacteremia Repeat blood cultures 04/08 with 1 bottle growing coag negative staph: Suspect contaminant Repeat blood cultures remain negative GI/Nutrition: Transaminitis -resolved Elevated lipase: resolved Necrotizing pancreatitis - stable Continue tube feeds. Renal: Hypernatremia resolved. Replace electrolytes as needed Heme: Anemia secondary to bone marrow suppression of disease process Endocrine: ICU hyperglycemia protocol Prophylaxis VTE: Lovenox for DVT prophylaxis restarted 04/16/2021. GI: Lansoprazole Lines: Sue AJ Contacts: patient's (Mrs. Halle Awan) [phone]. Thank you for the opportunity to participate in this patient's care. Please refer to Dr. Wall's documentation for further information. Admission and Anticipated Discharge Date Admission Date: March 20, 2021 Supervising Physician Co-Signing Physician Notes Dr. Hdz was resident physician during care of patient. I separately evaluated patient for ortiz portions of the history and the exam. I was present during the critical portion of medical decision making, and I discussed the case with the resident. I generally agree with the findings and plan. They will downsize trach from 8-6 DCT hopefully will move towards decannulation soon, patient to remain off ventilator and on trach collar x24 hours, strong cough. Relative hypokalemia additional potassium supplementation. Continue antibiotics until May 04 for 4-week course and then consider reimaging at that point. He has not had recurrence of his A. fib and he was under sign ificant stress at this time I do not believe he needs anticoagulation for paroxysmal atrial fib. Still working with social work for regarding placement. Subjective Patient seen and evaluated at bedside this morning. No acute events overnight. Patient feels well this morning and has no complaints. Patient reports his breathing feels okay today. Denies CP, nausea, vomiting, fever, chills, or other symptoms. Review of Systems Review of Systems: See HPI Physical Exam Physical Exam: Constitutional: well-appearing, no acute distress HEENT: NCAT, no conjunctival injection, tracheostomy tube in place CV: regular rhythm, no murmur appreciated, extremities well-perfused, no LE edema Resp: CTABL, no wheezes/rales/rhonchi appreciated, no increased work of breathing MSK: no gross deformities appreciated Skin: warm, dry, no rash appreciated Neuro: no focal neurological deficits appreciated Results & Data Results & Data ([facility]) Vital Signs (Past 12 Hours) Vital Signs Temp Pulse Pulse Resp BP Pulse Ox 04/21/21 05:36 87 24 94 04/21/21 02:28 87 26 H 95 04/21/21 01:01 91 H 30 H 145/81 H 94 04/21/21 00:01 86 29 H 128/68 94 04/21/21 00:00 73 04/20/21 23:01 36.8 C 82 20 143/78 H 95 04/20/21 22:26 93 H 26 H 93 04/20/21 22:01 92 H 26 H 124/66 94 04/20/21 21:01 79 21 155/75 H 96 04/20/21 20:01 86 22 137/72 93 04/20/21 19:01 36.7 C 85 21 140/66 99 04/20/21 18:58 88 23 97 Resident Activity Tracking Resident Involvement: Resident Care Provided Care Provided: Adult Hospital Medicine
[2021-04-21] MEDS: [UNRECOGNIZED DRUG - REMARK] SCH (07:57)
[2021-04-21] MEDS: LOSARTAN POTASSIUM 50 MG TAB PO SCH (07:59)
[2021-04-21] MEDS: levoFLOXacin 750 MG TAB PO SCH (07:59)
[2021-04-21] MEDS: amLODIPine BESYLATE 5 MG TAB PO SCH (07:59)
[2021-04-21] MEDS: predniSONE 10 MG TABLET PO SCH (08:00)
[2021-04-21] MEDS: LANSOPRAZOLE 30 MG SOLTAB OG SCH ×2 (08:00→20:03)
[2021-04-21] MEDS: NYSTATIN SUSP 500,000 U/5 ML UDC PO SCH ×3 (08:00→20:03)
--- NOTE | 2021-04-21 09:48 | Billing Data ---
Date of Service April 21, 2021 Coding Level of Care Code 02934 Subseq Hosp Care Lvl 3
[2021-04-21] MEDS ORDERED: POTASSIUM CHLORIDE CRTAB 20 MEQ TABCR PO ONE (10:30)
[2021-04-21] MEDS: PROSOURCE NO CARB 30 ML/PKT NG SCH (10:47)
[2021-04-21] MEDS: oxyCODONE HCL IR 5 MG TAB (IMMEDIATE RELEASE) PO PRN ×2 (11:02→23:29)
[2021-04-21] MEDS: ENOXAPARIN INJ 40 MG/0.4 ML SYR SQ SCH (11:29)
--- NOTE | 2021-04-21 17:50 | Hospitalist Progress Note ---
Date of Service April 21, 2021 Assessment & Plan (1) Acute respiratory failure with hypoxia: Plan: due to COVID 19 pneumonia, bilateral infiltrates on CXR Was requiring prone positioning and BiPAP while awake, but then weaned down to wall high flow nasal cannula at 11-15 L on 03/23 However, on 03/24 worsened again was placed back on Vapotherm high flow nasal cannula On 03/25, requiring higher amounts of oxygen at 40 L and up to 80 % FiO2 to maintain pulse ox 90-91% On 03/26 switched to Ventilator HFNC at 60L, 100% FiO2 to keep POx>88%---> continued to decompensate on the morning of 03/27 and was intubated and proned He was not a candidate for ECMO Previously had pneumomediastinum which is now resolved Status post tocilizumab on 03/21 Completed a course of high-dose dexamethasone initially with 10 mg daily and then on 03/28, increased to 20 mg daily x5 days, then 10 mg daily x5 days Ventilator management as per director regulatory compliance status post tracheostomy on 04/05-director regulatory compliance is planning on decreasing the size of the trach tube in process of decannulating Doing much better since 04/18-tolerating pressure support trials at night and tra ch collar all day long NG tube removed on 04/20 and is tolerating a regular diet after speech therapy evaluation Klonopin q12 is now discontinued as of 04/19 Oxycodone PRN for opiate withdrawal or pain Was having a lot of trouble sleeping-added magnesium, Ambien as needed which is helping Was on Lasix drip to provide diuresis, CR was rising, now Lasix drip on hold- still remains quite edematous-consider restarting Lasix-deferred director regulatory compliance (2) AMS (altered mental status): Plan: Now significantly improved/resolved since 04/17 he is oriented, following commands, visiting with family, is getting out of bed to chair every day etiologies include: ICU delirium, hypernatremia, fevers, infection, elevated ammonia ammonia was > 40, started on lactulose, now stopped Na is down to normal, peaked at 157 on Thursday 04/12 Also did have a small parenchymal hemorrhage which was stable on repeat imaging Continue treating lung abscess with levofloxacin and metronidazole all sedation is off at this point-discontinued Klonopin on 04/19 (3) Fever: Plan: Fevers started on 04/02, then resolved UA normal on 04/02 CXR with persistent infiltrates, sputum culture with group C beta strep blood cultures - no growth from 04/02, but blood cultures positive on 04/09 for coagulase-negative Staphylococcus in 1/2 sets-likely contaminant Blood cultures 04/10-no growth to date He then continued with persistent fevers from 04/05-04/10 acute sinusitis/large mastoid effusions seen on MRI brain With right lung abscess on CT chest on 04/09--negative AFB, culture no growth to date right pleural effusion - thoracentesis, pleural culture negative Central and arterial lines have been removed and replaced with peripheral IVs Dopplers of lower extremities negative for DVT CT chest/abdomen/pelvis significant for lung abscess, necrotizing pancreatitis but lipase normal MRIs of cervical/thoracic/lumbar spine without epidural abscess or discitis MRSA swab remains negative - continue Levaquin and Flagyl, was started 04/07, will need 4 weeks to treat possible lung abscess-changed to p.o. antibiotics on 04/20 echo: EF 70%, no vegetations, normal valves Fevers are now resolved (4) Cerebral parenchymal hemorrhage: Plan: new finding on CT head on 04/13 small, 5mm area right parietal lobe, also with trace subarachnoid hemorrhage left frontal lobe repeat head CT 04/13 and 04/14 with stable hemorrhage neurology consulted, likely bleed in setting of hypertension, Lovenox MRI brain and MRA brain on 04/14: unchanged right 5mm parenchymal hemorrhage, normal angiography no further imaging planned unless mental status changes Has since been restarted on SQ Lovenox (5) Bradycardia: Plan: with sinus terry initially while on BIPAP prior to intubation HR dropped to 20's on 04/12, required atropine, pacer pads on stopped metoprolol due to frequent pauses Has had some significant sinus pauses at times which seem to have improved now (6) SVT (supraventricular tachycardia): Plan: Had SVT to the 200s on the evening of 04/07 with associated hypotension requiring esmolol, amiodarone, adenosine x3, synchronized cardioversion x5 Also had further atrial fibrillation on 04/07 and again on the night of 04/09 Now back in normal sinus rhythm ever since stopped metoprolol 25mg BID due to pauses Continue to replace electrolytes as needed (7) Pneumonia due to COVID-19 virus: Plan: completed treatment with dexamethasone received Tocilizumab removed from neg pressure isolation 04/15 (8) Hypertension: Plan: Had significant hypertension which is now much improved since restarting home losartan 100 mg p.o. once daily -Continue amlodipine 10mg daily Still with some hypertension here-consider diuresis (9) Hypokalemia: Plan: Resolved Follow BMP (10) BPH loc w urin obs/LUTS: Plan: Rogers catheter in place Will need to remove Rogers catheter once he is more mobile (11) Lung abscess: Plan: As above Status post aspiration Follow cultures-no growth to date Continue levofloxacin, metronidazole for 4 weeks total (12) Pancreatitis: Plan: Visualized on CT of the abdomen with suspected necrotizing pancreatitis Lipase normal, triglycerides improving He does have some mild abdominal pain but it is lower and is likely related to constipation Tube feeds discontinued and on full liquids diet (13) Gout: Plan: Complaint of pain in the great toe on 04/19, with erythema of the first MTP joint with tenderness Increase prednisone to 10 mg daily on 04/20 given ongoing pain-now improving (14) Paroxysmal atrial fibrillation: Plan: Had intermittent rapid atrial fibrillation when he was critically ill and on the ventilator-this has now been resolved for many days No need for long-term anticoagulation at this point especially in the setting of subarachnoid hemorrhage which occurred also during time of critical illness Continue telemetry monitoring Plan: DVT prophylaxis: SCD, Lovenox Disposition: Continued stay in ICU, prognosis is improving a lot each day, remarkable recovery ultimately will need LTACH-referral has been made and awaiting approval CODE STATUS: conditional code Admission and Anticipated Discharge Date Admission Date: March 20, 2021 Subjective Patient was out of bed to the chair again for several hours today and was back in bed napping when I saw him. He remains on trach collar all day and is doing well with this. He reports the pain in his right great toe gout is improved. Denies abdominal pain. Does not feel short of breath. He was able to eat regular food today which he was happy about. remains in sinus rhythm on telemetry Review of Systems Review of Systems: All systems reviewed & are unremarkable except as noted in HPI & below Physical Exam Constitutional: WD/WN, vitals as above Eyes: + anicteric sclerae Neck: trachea midline, no thyromegaly (With tracheostomy tube in place) + tracheostomy present Respiratory: normal respiratory effort Auscultation: + diminished lung sounds (At right lower and middle lung hayden) and + crackles (Bilateral lower and middle lung hayden); no rhonchi and no wheezes Cardiovascular: Rate/Rhythm: regular rate and regular rhythm Heart Sounds: no murmur Extremities: + edema (2+ pitting edema in all extremities); no calf tenderness Chest (Breasts): Chest: normal inspection of chest Gastrointestinal (Abdomen): normal bowel sounds, soft, nontender, no hepatosplenomegaly Musculoskeletal: Extremities: no cyanosis and no clubbing Skin: no rashes, warm and dry Neurologic: awake Psychiatric: A+Ox3, euthymic affect Results & Data Results & Data ([facility]) Vital Signs (Past 12 Hours) Vital Signs Temp Pulse Resp BP Pulse Ox 04/21/21 17:19 37.2 C 04/21/21 17:02 94 H 29 H 194/85 H 91 04/21/21 16:02 99 H 24 161/80 H 89 L 04/21/21 15:02 92 H 24 175/76 H 94 04/21/21 14:01 97 H 33 H 141/76 H 89 L 04/21/21 13:01 85 25 H 166/63 H 89 L 04/21/21 12:25 36.9 C 04/21/21 12:01 93 H 27 H 142/79 H 90 04/21/21 11:02 92 H 30 H 163/71 H 94 04/21/21 10:01 97 H 28 H 150/66 H 88 L 04/21/21 09:01 92 H 29 H 156/68 H 89 L 04/21/21 08:01 85 26 H 166/73 H 89 L 04/21/21 07:02 85 23 170/64 H 88 L Laboratory Results 04/21/21 04:55 04/21/21 04:55 PG Care Time/CCT Total # of Minutes Spent Total Time Spent with Patient: Total time spent is greater than 50% in coordination of care (as documented) at patient's floor/unit and/or counseling patient: Coding Level of Care Code 37095 Subseq Hosp Care Lvl 3 Diagnoses Acute respiratory failure with hypoxia J96.01 AMS (altered mental status) R41.82 Fever R50.9 Cerebral parenchymal hemorrhage I61.9 Bradycardia R00.1 SVT (supraventricular tachycardia) I47.1 Pneumonia due to COVID-19 virus U07.1; J12.82 Hypertension I10 Hypokalemia E87.6 BPH loc w urin obs/LUTS N40.1 Lung abscess J85.2 Pancreatitis K85.90 Gout M10.9 Paroxysmal atrial fibrillation I48.0
[2021-04-21] MEDS: ZINC SULFATE 220 MG CAPSULE PO SCH (20:03)
[2021-04-21] MEDS: MAGNESIUM OXIDE 400 MG TAB PO SCH (20:04)
[2021-04-21] MEDS: ZOLPIDEM TARTRATE 5 MG TAB PO PRN (20:07)
[2021-04-22] MEDS: metroNIDAZOLE 500 MG TAB PO SCH ×4 (01:00→23:12)
[2021-04-22 05:21] LABS: Basophils # (auto) 0.02 K/uL (0-0.2); Basophils % (auto) 0.2 %; Eosinophils # (auto) 0.19 K/uL (0-0.5); Eosinophils % (auto) 1.5 %; Hematocrit (blood only) 27.8 % (42-52); Hemoglobin 8.9 g/dL (14.0-18.0); Immature Granulocytes # (auto) 0.26 K/uL (0.00-0.02); Immature Granulocytes % (auto) 2.1 %; Lymphocytes # (auto) 1.01 K/uL (1.2-3.4); Mean Corpuscular Hemoglobin 29.5 pg (25-34); Mean Corpuscular Volume 92.1 fL (80-100); Mean Platelet Volume 9.1 fL (7.4-10.4); Monocytes # (auto) 0.93 K/uL (0.11-0.59); Monocytes % (auto) 7.4 %; Neutrophils # (auto) 10.17 K/uL (1.4-6.5); Neutrophils % (auto) 80.8 %; Platelet Count 502 K/uL (130-400); RDW Coefficient of Variation 14.7 % (11.5-14.5); RDW Standard Deviation 49.4 fL (36.4-46.3); Red Blood Count 3.02 M/uL (4.7-6.1); White Blood Count 12.58 K/uL (4.8-10.8)
[2021-04-22 05:40] LABS: Calcium 8.1 mg/dl (8.5-10.1); Creatinine Clr Calc Pharmacy 98.9 ml/min; Est GFR (African American) 94.4 ml/min; Est GFR (Non-African American) 81.4 ml/min; Magnesium 2.5 mg/dl (1.8-2.4); Phosphorus 3.5 mg/dl (2.5-4.9)
--- NOTE | 2021-04-22 06:47 | Critical Care Progress Note ---
Date of Service April 22, 2021 Assessment & Plan (1) Acute respiratory failure with hypoxia: Plan: Reason Critically Ill: 61-year-old male with past medical history of hypertension admitted to the hospital for COVID-19 pneumonia and acute hypoxic respiratory failure, intubated 03/27/21, then with tracheostomy performed 04/05/21. Currently stable, awaiting LTACH placement. PLAN: NEURO: Awake and alert. Following complex commands. EEG without epileptiform activity. MRI brain 04/14/2021 with no significant change in the 5 mm hemorrhagic focus within the periventricular right frontoparietal region. Brain MRA 04/14/2021 unremarkable. Echo without findings of embolic phenomenon. Oxycodone as needed for opioid withdrawal Prednisone 10mg x 5 days for gout flare (started 04/20) RESPIRATORY: VDRF with acute hypoxic respiratory failure, secondary to multilobar COVID-19 pneumonia COVID-19 PCR positive 03/16/2021, remains positive as of 04/07/21 S/p Tocilizumab 03/21/21 Intubated 03/27/21; tracheostomy performed 04/05/21 Continue trach collar x24 hours S/p ARDS net high-dose steroid protocol: Dexamethasone 20mg x5 days, 10mg x5 days -- completed on 04/[address] 04/09 with right-sided pleural effusion: Status post thoracentesis 04/09; cultures negative thus far. Status post bronchoscopy 04/16. Cultures and cytology sent for BAL fluid. Cough Dextromethorphan as needed Pneumomediastinum: resolved CARDIOVASCULAR: Paroxysmal atrial fibrillation with RVR: Currently normal sinus rhythm. Episode of SVT evening of 04/07, 04/09: resolved Intermittent episodes of bradycardia noted with suctioning. Metoprolol on hold due to episodes of bradycardia. Continue calcium channel dar. Losartan added ID: Lung abscess- will require 4 to 6 weeks of antibiotic therapy for the pulmonary abscess. Sputum cultures with Group G Beta strep. Repeat sputum cultures negative thus far. Continue with Flagyl and levofloxacin Bacteremia: Resolved Repeat blood cultures 04/08 with 1 bottle growing coag negative staph: Suspect contaminant Repeat blood cultures remain negative GI/Nutrition: Transaminitis -resolved Elevated lipase: resolved Necrotizing pancreatitis - stable Continue tube feeds. Renal: Hypernatremia resolved. Replace electrolytes as needed Heme: Anemia secondary to bone marrow suppression of disease process Endocrine: ICU hyperglycemia protocol Prophylaxis VTE: Lovenox for DVT prophylaxis restarted 04/16/2021. GI: Lansoprazole Lines: Sue AJ Contacts: patient's (Mrs. Halle Awan) [phone]. Admission and Anticipated Discharge Date Admission Date: March 20, 2021 Subjective Was placed on pressure support 6/3 overnight for increased work of breathing and now back on trach collar tolerated tracheostomy change today Physical Exam Physical Exam: Constitutional: well-appearing, no acute distress HEENT: NCAT, no conjunctival injection, tracheostomy tube in place CV: regular rhythm, no murmur appreciated, extremities well-perfused, no LE edema Resp: CTABL, no wheezes/rales/rhonchi appreciated, no increased work of breathing MSK: no gross deformities appreciated Skin: warm, dry, no rash appreciated Neuro: no focal neurological deficits appreciated Results & Data Results & Data ([facility]) Vital Signs (Past 12 Hours) Vital Signs Temp Pulse Pulse Resp BP Pulse Ox 04/22/21 03:01 37.1 C 82 183/83 H 95 04/22/21 03:00 93 H 24 93 04/22/21 02:01 81 165/76 H 93 04/22/21 01:01 81 181/79 H 04/22/21 00:00 93 H 30 H 91 04/21/21 23:02 89 29 H 178/76 H 95 04/21/21 22:58 94 H 22 95 04/21/21 22:01 104 H 23 145/65 H 86 L 04/21/21 21:01 83 24 139/65 96 04/21/21 20:02 91 H 27 H 184/81 H 89 L 04/21/21 19:01 36.8 C 89 27 H 166/80 H 92 Laboratory Results 04/22/21 04/22/21 04/22/21 Range/Units 07:28 05:10 05:10 WBC 12.58 H (4.8-10.8) K/uL RBC 3.02 L (4.7-6.1) M/uL Hgb 8.9 L (14.0-18.0) g/dL Hct 27.8 L (42-52) % MCV 92.1 (80-100) fL MCH 29.5 (25-34) pg MCHC 32.0 (32-36) g/dL RDW Std Deviation 49.4 H (36.4-46.3) fL RDW Coeff of Sujit 14.7 H (11.5-14.5) % Plt Count 502 H (130-400) K/uL MPV 9.1 (7.4-10.4) fL Immature Gran % (Auto) 2.1 % Neut % (Auto) 80.8 % Lymph % (Auto) 8.0 % Rowan % (Auto) 7.4 % Eos % (Auto) 1.5 % Baso % (Auto) 0.2 % Neut # (Auto) 10.17 H (1.4-6.5) K/uL Lymph # (Auto) 1.01 L (1.2-3.4) K/uL Rowan # (Auto) 0.93 H (0.11-0.59) K/uL Eos # (Auto) 0.19 (0-0.5) K/uL Baso # (Auto) 0.02 (0-0.2) K/uL Immature Gran # (Auto) 0.26 H (0.00-0.02) K/uL Sodium 140 (136-145) mmol/L Potassium 4.0 (3.5-5.1) mmol/L Chloride 106 (98-107) mmol/L Carbon Dioxide 31 (21-32) mmol/L Anion Gap 3.0 (3-11) BUN 30 H (7-18) mg/dl Creatinine 1.00 (0.6-1.4) mg/dl Est Cr Clr Drug Dosing 98.9 ml/min Est GFR ( Amer) 94.4 ml/min Est GFR (Non-Af Amer) 81.4 ml/min BUN/Creatinine Ratio 30.0 H (10-20) Glucose 122 H (70-99) mg/dl POC Glucose 110 H (70-99) mg/dl Calcium 8.1 L (8.5-10.1) mg/dl Phosphorus 3.5 (2.5-4.9) mg/dl Magnesium 2.5 H (1.8-2.4) mg/dl 04/21/21 04/21/21 04/21/21 Range/Units 19:59 16:43 11:55 WBC (4.8-10.8) K/uL RBC (4.7-6.1) M/uL Hgb (14.0-18.0) g/dL Hct (42-52) % MCV (80-100) fL MCH (25-34) pg MCHC (32-36) g/dL RDW Std Deviation (36.4-46.3) fL RDW Coeff of Sujit (11.5-14.5) % Plt Count (130-400) K/uL MPV (7.4-10.4) fL Immature Gran % (Auto) % Neut % (Auto) % Lymph % (Auto) % Rowan % (Auto) % Eos % (Auto) % Baso % (Auto) % Neut # (Auto) (1.4-6.5) K/uL Lymph # (Auto) (1.2-3.4) K/uL Rowan # (Auto) (0.11-0.59) K/uL Eos # (Auto) (0-0.5) K/uL Baso # (Auto) (0-0.2) K/uL Immature Gran # (Auto) (0.00-0.02) K/uL Sodium (136-145) mmol/L Potassium (3.5-5.1) mmol/L Chloride (98-107) mmol/L Carbon Dioxide (21-32) mmol/L Anion Gap (3-11) BUN (7-18) mg/dl Creatinine (0.6-1.4) mg/dl Est Cr Clr Drug Dosing ml/min Est GFR ( Amer) ml/min Est GFR (Non-Af Amer) ml/min BUN/Creatinine Ratio (10-20) Glucose (70-99) mg/dl POC Glucose 129 H 130 H 136 H (70-99) mg/dl Calcium (8.5-10.1) mg/dl Phosphorus (2.5-4.9) mg/dl Magnesium (1.8-2.4) mg/dl Resident Activity Tracking Resident Involvement: Resident Care Provided Care Provided: Adult Hospital Medicine
[2021-04-22] MEDS: amLODIPine BESYLATE 5 MG TAB PO SCH (07:40)
[2021-04-22] MEDS: LOSARTAN POTASSIUM 50 MG TAB PO SCH (07:40)
[2021-04-22] MEDS: predniSONE 10 MG TABLET PO SCH (07:40)
[2021-04-22] MEDS: levoFLOXacin 750 MG TAB PO SCH (07:41)
[2021-04-22] MEDS: NYSTATIN SUSP 500,000 U/5 ML UDC PO SCH ×3 (07:41→20:13)
[2021-04-22] MEDS: LANSOPRAZOLE 30 MG SOLTAB OG SCH ×2 (07:42→20:12)
[2021-04-22] MEDS: ENOXAPARIN INJ 40 MG/0.4 ML SYR SQ SCH (07:42)
[2021-04-22] MEDS: INSULIN ASPART 100 UNITS/ML 3 ML PEN SC SCH ×4 (07:52→21:07)
--- NOTE | 2021-04-22 09:19 | Procedure Note ---
Procedure Note Date of Service April 22, 2021 Note Procedure Date: Noted above Procedure: tracheostomy change Pre-procedure Diagnosis: Tracheostomy management Post-procedure Diagnosis: same as above Prior to Procedure: Attending Staff: Arleen Wall DO The identity of the patient was confirmed and a bedside time out was performed. Description of Procedure: Patient was evaluated and required a tracheostomy tube change. The patient was position in the usual fashion. A leak test was performed on the new tracheostomy tube, and successfully passed. The tracheostomy ties were loosened. The cuff was deflated and the old 8 DCT tracheostomy tube with removed without difficultl y. The new 6 DCT Shiley tracheostomy tube was inserted into the tracheal opening, obturator removed, and connected to the ventilator. Chest rise was bilateral. Bilateral breath sounds were heard without air sounds in the abdomen. Complications: Patient tolerated the procedure well without complications. Findings: not applicable Specimens: not applicable Estimated blood loss: Zero Coding CPT Codes Pulmonary/Thoracic - Pulmonary and Thoracic: 62672 Tracheotomy tube change ([id number]) [facility] – [place], [place] Procedure Codes (Charges) Pulmonary/Thoracic Procedure 2: Pulmonary and Thoracic: 41321 Tracheotomy tube change
--- NOTE | 2021-04-22 09:50 | Billing Data ---
Date of Service April 22, 2021 Coding Level of Care Code 06921 Subseq Hosp Care Lvl 3
[2021-04-22] MEDS ORDERED: FUROSEMIDE 20 MG in SYRINGE 0 ML IV ONE (14:00)
--- NOTE | 2021-04-22 14:21 | Hospitalist Progress Note ---
Date of Service April 22, 2021 Assessment & Plan (1) Acute respiratory failure with hypoxia: Plan: due to COVID 19 pneumonia, bilateral infiltrates on CXR Was requiring prone positioning and BiPAP while awake, but then weaned down to wall high flow nasal cannula at 11-15 L on 03/23 However, on 03/24 worsened again was placed back on Vapotherm high flow nasal cannula On 03/25, requiring higher amounts of oxygen at 40 L and up to 80 % FiO2 to maintain pulse ox 90-91% On 03/26 switched to Ventilator HFNC at 60L, 100% FiO2 to keep POx>88%---> continued to decompensate on the morning of 03/27 and was intubated and proned He was not a candidate for ECMO Previously had pneumomediastinum which is now resolved Status post tocilizumab on 03/21 Completed a course of high-dose dexamethasone initially with 10 mg daily and then on 03/28, increased to 20 mg daily x5 days, then 10 mg daily x5 days Ventilator management as per cell changer status post tracheostomy on 04/05-cell changer is planning on decreasing the size of the trach tube in process of decannulating Doing much better since 04/18-tolerating pressure support trials at night and tra ch collar all day long NG tube removed on 04/20 and is tolerating a regular diet after speech therapy evaluation Klonopin q12 is now discontinued as of 04/19 Oxycodone PRN for opiate withdrawal or pain Was having a lot of trouble sleeping-added magnesium, Ambien as needed which is helping Still with anasarca-give Lasix 20 mg IV x1 today and will likely repeat daily if tolerates (2) AMS (altered mental status): Plan: Now significantly improved/resolved since 04/17 he is oriented, following commands, visiting with family, is getting out of bed to chair every day etiologies include: ICU delirium, hypernatremia, fevers, infection, elevated ammonia ammonia was > 40, started on lactulose, now stopped Na is down to normal, peaked at 157 on Thursday 04/12 Also did have a small parenchymal hemorrhage which was stable on repeat imaging Continue treating lung abscess with levofloxacin and metronidazole all sedation is off at this point-discontinued Klonopin on 04/19 (3) Fever: Plan: Fevers started on 04/02, then resolved UA normal on 04/02 CXR with persistent infiltrates, sputum culture with group C beta strep blood cultures - no growth from 04/02, but blood cultures positive on 04/09 for coagulase-negative Staphylococcus in 1/2 sets-likely contaminant Blood cultures 04/10-no growth to date He then continued with persistent fevers from 04/05-04/10 acute sinusitis/large mastoid effusions seen on MRI brain With right lung abscess on CT chest on 04/09--negative AFB, culture no growth to date right pleural effusion - thoracentesis, pleural culture negative Central and arterial lines have been removed and replaced with peripheral IVs Dopplers of lower extremities negative for DVT CT chest/abdomen/pelvis significant for lung abscess, necrotizing pancreatitis but lipase normal MRIs of cervical/thoracic/lumbar spine without epidural abscess or discitis MRSA swab remains negative - continue Levaquin and Flagyl, was started 04/07, will need 4 weeks to treat possible lung abscess-changed to p.o. antibiotics on 04/20 echo: EF 70%, no vegetations, normal valves Fevers are now resolved (4) Cerebral parenchymal hemorrhage: Plan: new finding on CT head on 04/13 small, 5mm area right parietal lobe, also with trace subarachnoid hemorrhage left frontal lobe repeat head CT 04/13 and 04/14 with stable hemorrhage neurology consulted, likely bleed in setting of hypertension, Lovenox MRI brain and MRA brain on 04/14: unchanged right 5mm parenchymal hemorrhage, normal angiography no further imaging planned unless mental status changes Has since been restarted on SQ Lovenox (5) Bradycardia: Plan: with sinus terry initially while on BIPAP prior to intubation HR dropped to 20's on 04/12, required atropine, pacer pads on stopped metoprolol due to frequent pauses Has had some significant sinus pauses at times which seem to have improved now (6) SVT (supraventricular tachycardia): Plan: Had SVT to the 200s on the evening of 04/07 with associated hypotension requiring esmolol, amiodarone, adenosine x3, synchronized cardioversion x5 Also had further atrial fibrillation on 04/07 and again on the night of 04/09 Now back in normal sinus rhythm ever since stopped metoprolol 25mg BID due to pauses Continue to replace electrolytes as needed (7) Pneumonia due to COVID-19 virus: Plan: completed treatment with dexamethasone received Tocilizumab removed from neg pressure isolation 04/15 (8) Hypertension: Plan: Had significant hypertension which is now much improved since restarting home losartan 100 mg p.o. once daily -Continue amlodipine 10mg daily Still with some hypertension here-now with diuresis with Lasix as above (9) Hypokalemia: Plan: Resolved Follow BMP (10) BPH loc w urin obs/LUTS: Plan: Rogers catheter in place Will need to remove Rogers catheter once he is more mobile (11) Lung abscess: Plan: As above Status post aspiration Follow cultures-no growth to date Continue levofloxacin, metronidazole for 4 weeks total (12) Pancreatitis: Plan: Visualized on CT of the abdomen with suspected necrotizing pancreatitis Lipase normal, triglycerides improving He does have some mild abdominal pain but it is lower and is likely related to constipation Tube feeds discontinued and on regular diet (13) Gout: Plan: Complaint of pain in the great toe on 04/19, with erythema of the first MTP joint with tenderness Increase prednisone to 10 mg daily on 04/20 given ongoing pain-now improving (14) Paroxysmal atrial fibrillation: Plan: Had intermittent rapid atrial fibrillation when he was critically ill and on the ventilator-this has now been resolved for many days No need for long-term anticoagulation at this point especially in the setting of subarachnoid hemorrhage which occurred also during time of critical illness Continue telemetry monitoring Plan: DVT prophylaxis: SCD, Lovenox Disposition: Continued stay in ICU, prognosis is improving a lot each day, remarkable recovery ultimately will need LTACH-referral has been made and awaiting approval CODE STATUS: conditional code Admission and Anticipated Discharge Date Admission Date: March 20, 2021 Subjective Patient feeling well today, no chest pain or shortness of breath. Remains on trach collar. Had his tracheostomy tube exchanged today for a smaller size. Pain in his right foot is improved. He is eating and drinking. Review of Systems Review of Systems: All systems reviewed & are unremarkable except as noted in HPI & below Physical Exam Constitutional: WD/WN, vitals as above Eyes: + anicteric sclerae Neck: trachea midline, no thyromegaly (With tracheostomy tube in place) + tracheostomy present Respiratory: normal respiratory effort Auscultation: + diminished lung sounds (At right lower and middle lung hayden) and + crackles (Bilateral lower and middle lung hayden); no rhonchi and no wheezes Cardiovascular: Rate/Rhythm: regular rate and regular rhythm Heart Sounds: no murmur Extremities: + edema (2+ pitting edema in all extremities); no calf tenderness Chest (Breasts): Chest: normal inspection of chest Gastrointestinal (Abdomen): normal bowel sounds, soft, nontender, no hepatosplenomegaly Musculoskeletal: Extremities: no cyanosis and no clubbing Skin: no rashes, warm and dry Neurologic: awake Psychiatric: A+Ox3, euthymic affect Orientation: cooperative Results & Data Results & Data ([facility]) Vital Signs (Past 12 Hours) Vital Signs Temp Pulse Pulse Resp BP Pulse Ox 04/22/21 12:01 103 H 23 143/79 H 85 L 04/22/21 11:01 97 H 16 145/78 H 85 L 04/22/21 10:01 105 H 21 138/88 89 L 04/22/21 09:01 105 H 20 139/80 88 L 04/22/21 08:02 97 H 18 96 04/22/21 08:01 97 H 162/89 H 100 04/22/21 08:00 82 04/22/21 07:01 93 H 164/84 H 97 04/22/21 03:01 37.1 C 82 183/83 H 95 04/22/21 03:00 93 H 24 93 Laboratory Results 04/22/21 05:10 04/22/21 05:10 PG Care Time/CCT Total # of Minutes Spent Total Time Spent with Patient: Total time spent is greater than 50% in coordination of care (as documented) at patient's floor/unit and/or counseling patient: Coding Level of Care Code 50401 Subseq Hosp Care Lvl 3 Diagnoses Acute respiratory failure with hypoxia J96.01 AMS (altered mental status) R41.82 Fever R50.9 Cerebral parenchymal hemorrhage I61.9 Bradycardia R00.1 SVT (supraventricular tachycardia) I47.1 Pneumonia due to COVID-19 virus U07.1; J12.82 Hypertension I10 Hypokalemia E87.6 BPH loc w urin obs/LUTS N40.1 Lung abscess J85.2 Pancreatitis K85.90 Gout M10.9 Paroxysmal atrial fibrillation I48.0
[2021-04-22] MEDS: oxyCODONE HCL IR 5 MG TAB (IMMEDIATE RELEASE) PO PRN ×2 (14:29→20:15)
[2021-04-22] MEDS: ACETAMINOPHEN 325 MG TAB PO PRN (17:27)
[2021-04-22] MEDS: MAGNESIUM OXIDE 400 MG TAB PO SCH (20:13)
[2021-04-22] MEDS: ZINC SULFATE 220 MG CAPSULE PO SCH (20:13)
[2021-04-22 23:22] LABS: Source LUNG BIOPSY
[2021-04-23 05:36] LABS: Basophils # (auto) 0.02 K/uL (0-0.2); Basophils % (auto) 0.2 %; Eosinophils # (auto) 0.19 K/uL (0-0.5); Eosinophils % (auto) 1.6 %; Hematocrit (blood only) 27.3 % (42-52); Hemoglobin 8.5 g/dL (14.0-18.0); Immature Granulocytes # (auto) 0.19 K/uL (0.00-0.02); Immature Granulocytes % (auto) 1.6 %; Lymphocytes # (auto) 1.01 K/uL (1.2-3.4); Lymphocytes % (auto) 8.2 %; Mean Corpuscular Hemoglobin 29.5 pg (25-34); Mean Corpuscular Hgb Conc 31.1 g/dL (32-36); Mean Corpuscular Volume 94.8 fL (80-100); Mean Platelet Volume 9.2 fL (7.4-10.4); Monocytes # (auto) 1.07 K/uL (0.11-0.59); Monocytes % (auto) 8.7 %; Neutrophils # (auto) 9.77 K/uL (1.4-6.5); Neutrophils % (auto) 79.7 %; Platelet Count 490 K/uL (130-400); RDW Coefficient of Variation 14.4 % (11.5-14.5); RDW Standard Deviation 49.7 fL (36.4-46.3); Red Blood Count 2.88 M/uL (4.7-6.1); White Blood Count 12.25 K/uL (4.8-10.8)
[2021-04-23 05:53] LABS: BUN Creatinine Ratio 25.3 (10-20); Creatinine Clr Calc Pharmacy 102.2 ml/min; Est GFR (African American) 97.9 ml/min; Est GFR (Non-African American) 84.5 ml/min; Magnesium 2.4 mg/dl (1.8-2.4); Potassium 3.9 mmol/L (3.5-5.1)
[2021-04-23 05:54] LABS: Phosphorus 3.5 mg/dl (2.5-4.9)
[2021-04-23] MEDS: NYSTATIN SUSP 500,000 U/5 ML UDC PO SCH ×3 (08:01→21:13)
[2021-04-23] MEDS: LOSARTAN POTASSIUM 50 MG TAB PO SCH (08:02)
[2021-04-23] MEDS: amLODIPine BESYLATE 5 MG TAB PO SCH (08:02)
[2021-04-23] MEDS: levoFLOXacin 750 MG TAB PO SCH (08:02)
[2021-04-23] MEDS: ENOXAPARIN INJ 40 MG/0.4 ML SYR SQ SCH (08:03)
[2021-04-23] MEDS: metroNIDAZOLE 500 MG TAB PO SCH ×3 (08:03→23:28)
[2021-04-23] MEDS: LANSOPRAZOLE 30 MG SOLTAB OG SCH ×2 (08:04→21:13)
[2021-04-23] MEDS: predniSONE 10 MG TABLET PO SCH (08:04)
[2021-04-23] MEDS: INSULIN ASPART 100 UNITS/ML 3 ML PEN SC SCH ×4 (08:09→21:11)
--- NOTE | 2021-04-23 08:48 | Critical Care Progress Note ---
Date of Service April 23, 2021 Assessment & Plan (1) Acute respiratory failure with hypoxia: Plan: Reason Critically Ill: 61-year-old male with past medical history of hypertension admitted to the hospital for COVID-19 pneumonia and acute hypoxic respiratory failure, intubated 03/27/21, then with tracheostomy performed 04/05/21. Currently stable, awaiting LTACH placement. PLAN: NEURO: Awake and alert. Following complex commands. EEG without epileptiform activity. MRI brain 04/14/2021 with no significant change in the 5 mm hemorrhagic focus within the periventricular right frontoparietal region. Brain MRA 04/14/2021 unremarkable. Echo without findings of embolic phenomenon. Oxycodone as needed for opioid withdrawal Prednisone 10mg x 5 days for gout flare (started 04/20) RESPIRATORY: VDRF with acute hypoxic respiratory failure, secondary to multilobar COVID-19 pneumonia COVID-19 PCR positive 03/16/2021, remains positive as of 04/07/21 S/p Tocilizumab 03/21/21 Intubated 03/27/21; tracheostomy performed 04/05/21 Continue trach collar x24 hours S/p ARDS net high-dose steroid protocol: Dexamethasone 20mg x5 days, 10mg x5 days -- completed on 04/[address] 04/09 with right-sided pleural effusion: Status post thoracentesis 04/09; cultures negative thus far. Status post bronchoscopy 04/16. Cultures and cytology sent for BAL fluid. Cough Dextromethorphan as needed Pneumomediastinum: resolved CARDIOVASCULAR: Paroxysmal atrial fibrillation with RVR: Currently normal sinus rhythm. Episode of SVT evening of 04/07, 04/09: resolved Intermittent episodes of bradycardia noted with suctioning. Metoprolol on hold due to episodes of bradycardia. Continue calcium channel dar. Losartan added ID: Lung abscess- will require 4 to 6 weeks of antibiotic therapy for the pulmonary abscess. Sputum cultures with Group G Beta strep. Repeat sputum cultures negative thus far. Continue with Flagyl and levofloxacin Bacteremia: Resolved Repeat blood cultures 04/08 with 1 bottle growing coag negative staph: Suspect contaminant Repeat blood cultures remain negative GI/Nutrition: Transaminitis -resolved Elevated lipase: resolved Necrotizing pancreatitis - stable Continue tube feeds. Renal: Hypernatremia resolved. Replace electrolytes as needed Heme: Anemia secondary to bone marrow suppression of disease process Endocrine: ICU hyperglycemia protocol Prophylaxis VTE: Lovenox for DVT prophylaxis restarted 04/16/2021. GI: Lansoprazole Lines: Sue AJ Contacts: patient's (Mrs. Halle Awan) [phone]. Patient stable for downgrade from ICU. Admission and Anticipated Discharge Date Admission Date: March 20, 2021 Subjective No overnight events Physical Exam Physical Exam: General: alert and oriented Skin: Warm, dry, Head: Small area of skin breakdown on right face secondary to tube control d evice: Improving Ears, nose, mouth and throat: airway patent, tracheostomy tube in place with speaking valve Cardiovascular: Normal peripheral perfusion Respiratory: No respiratory distress, on trach collar Gastrointestinal: Non distended Musculoskeletal: No deformity, trace edema Results & Data Results & Data ([facility]) Vital Signs (Past 12 Hours) Vital Signs Temp Pulse Resp BP Pulse Ox 04/23/21 06:01 88 26 H 163/71 H 95 04/23/21 05:39 91 H 24 155/74 H 85 L 04/23/21 05:01 86 22 143/78 H 90 04/23/21 04:01 75 18 139/69 98 04/23/21 04:00 36.8 C 81 04/23/21 03:01 70 14 158/65 H 96 04/23/21 02:01 85 20 144/77 H 92 04/23/21 01:01 69 19 135/70 98 04/23/21 00:01 76 17 132/71 97 04/23/21 00:00 36.7 C 04/22/21 23:01 72 20 110/65 97 04/22/21 22:01 78 16 123/67 98 04/22/21 21:01 73 20 149/76 H 93 Laboratory Results 04/23/21 04/23/21 04/22/21 Range/Units 05:10 05:10 21:05 WBC 12.25 H (4.8-10.8) K/uL RBC 2.88 L (4.7-6.1) M/uL Hgb 8.5 L (14.0-18.0) g/dL Hct 27.3 L (42-52) % MCV 94.8 (80-100) fL MCH 29.5 (25-34) pg MCHC 31.1 L (32-36) g/dL RDW Std Deviation 49.7 H (36.4-46.3) fL RDW Coeff of Sujit 14.4 (11.5-14.5) % Plt Count 490 H (130-400) K/uL MPV 9.2 (7.4-10.4) fL Immature Gran % (Auto) 1.6 % Neut % (Auto) 79.7 % Lymph % (Auto) 8.2 % Rawlins % (Auto) 8.7 % Eos % (Auto) 1.6 % Baso % (Auto) 0.2 % Neut # (Auto) 9.77 H (1.4-6.5) K/uL Lymph # (Auto) 1.01 L (1.2-3.4) K/uL Rawlins # (Auto) 1.07 H (0.11-0.59) K/uL Eos # (Auto) 0.19 (0-0.5) K/uL Baso # (Auto) 0.02 (0-0.2) K/uL Immature Gran # (Auto) 0.19 H (0.00-0.02) K/uL Sodium 139 (136-145) mmol/L Potassium 3.9 (3.5-5.1) mmol/L Chloride 106 (98-107) mmol/L Carbon Dioxide 30 (21-32) mmol/L Anion Gap 3.0 (3-11) BUN 24 H (7-18) mg/dl Creatinine 0.97 (0.6-1.4) mg/dl Est Cr Clr Drug Dosing 102.2 ml/min Est GFR ( Amer) 97.9 ml/min Est GFR (Non-Af Amer) 84.5 ml/min BUN/Creatinine Ratio 25.3 H (10-20) Glucose 114 H (70-99) mg/dl POC Glucose 98 (70-99) mg/dl Calcium 8.0 L (8.5-10.1) mg/dl Phosphorus 3.5 (2.5-4.9) mg/dl Magnesium 2.4 (1.8-2.4) mg/dl Resp Virus Cult Rapid Viral Specimen Source 04/22/21 04/22/21 04/16/21 Range/Units 16:26 11:32 08:30 WBC (4.8-10.8) K/uL RBC (4.7-6.1) M/uL Hgb (14.0-18.0) g/dL Hct (42-52) % MCV (80-100) fL MCH (25-34) pg MCHC (32-36) g/dL RDW Std Deviation (36.4-46.3) fL RDW Coeff of Sujit (11.5-14.5) % Plt Count (130-400) K/uL MPV (7.4-10.4) fL Immature Gran % (Auto) % Neut % (Auto) % Lymph % (Auto) % [place] % (Auto) % Eos % (Auto) % Baso % (Auto) % Neut # (Auto) (1.4-6.5) K/uL Lymph # (Auto) (1.2-3.4) K/uL Rawlins # (Auto) (0.11-0.59) K/uL Eos # (Auto) (0-0.5) K/uL Baso # (Auto) (0-0.2) K/uL Immature Gran # (Auto) (0.00-0.02) K/uL Sodium (136-145) mmol/L Potassium (3.5-5.1) mmol/L Chloride (98-107) mmol/L Carbon Dioxide (21-32) mmol/L Anion Gap (3-11) BUN (7-18) mg/dl Creatinine (0.6-1.4) mg/dl Est Cr Clr Drug Dosing ml/min Est GFR ( Amer) ml/min Est GFR (Non-Af Amer) ml/min BUN/Creatinine Ratio (10-20) Glucose (70-99) mg/dl POC Glucose 143 H 134 H (70-99) mg/dl Calcium (8.5-10.1) mg/dl Phosphorus (2.5-4.9) mg/dl Magnesium (1.8-2.4) mg/dl Resp Virus Cult Rapid SEE NOTE Viral Specimen Source LUNG BIOPSY Coding Level of Care Code 65744 Subseq Hosp Care Lvl 3 Diagnoses Acute respiratory failure with hypoxia J96.01
[2021-04-23] MEDS ORDERED: FUROSEMIDE 40 MG in SYRINGE 0 ML IV ONE (10:30)
[2021-04-23] MEDS ORDERED: LORazepam 0.5 MG TAB PO PRN (16:36)
--- NOTE | 2021-04-23 16:49 | Hospitalist Progress Note ---
Date of Service April 23, 2021 Assessment & Plan (1) Acute respiratory failure with hypoxia: Plan: due to COVID 19 pneumonia, bilateral infiltrates on CXR Was requiring prone positioning and BiPAP while awake, but then weaned down to wall high flow nasal cannula at 11-15 L on 03/23 However, on 03/24 worsened again was placed back on Vapotherm high flow nasal cannula On 03/25, requiring higher amounts of oxygen at 40 L and up to 80 % FiO2 to maintain pulse ox 90-91% On 03/26 switched to Ventilator HFNC at 60L, 100% FiO2 to keep POx>88%---> continued to decompensate on the morning of 03/27 and was intubated and proned He was not a candidate for ECMO Previously had pneumomediastinum which is now resolved Status post tocilizumab on 03/21 Completed a course of high-dose dexamethasone initially with 10 mg daily and then on 03/28, increased to 20 mg daily x5 days, then 10 mg daily x5 days Now status post tracheostomy on 04/05-now tolerating trach collar during the day and pressure support overnight since 04/18 Tracheostomy tube was downsized to a 6 on 04/22 NG tube removed on 04/20 and is tolerating a regular diet after speech therapy evaluation Klonopin q12 is now discontinued as of 04/19, but with some withdrawal symptoms and anxiety on 04/23-add lorazepam 0.5 mg p.o. every 8 hours as needed anxiety Oxycodone PRN for opiate withdrawal or pain For insomnia-added magnesium, Ambien as needed which is helping With significant anasarca-continue Lasix 40 mg IV x1 today, redose daily as needed (2) AMS (altered mental status): Plan: Now significantly improved/resolved since 04/17 he is oriented, following commands, visiting with family, is getting out of bed to chair every day etiologies include: ICU delirium, hypernatremia, fevers, infection, elevated ammonia ammonia was > 40, started on lactulose, now stopped Na is down to normal, peaked at 157 on Thursday 04/12 Also did have a small parenchymal hemorrhage which was stable on repeat imaging Continue treating lung abscess with levofloxacin and metronidazole all sedation is off at this point-discontinued Klonopin on 04/19 (3) Fever: Plan: Fevers started on 04/02, then resolved UA normal on 04/02 CXR with persistent infiltrates, sputum culture with group C beta strep blood cultures - no growth from 04/02, but blood cultures positive on 04/09 for coagulase-negative Staphylococcus in 1/2 sets-likely contaminant Blood cultures 04/10-no growth to date He then continued with persistent fevers from 04/05-04/10 acute sinusitis/large mastoid effusions seen on MRI brain With right lung abscess on CT chest on 04/09--negative AFB, culture no growth to date right pleural effusion - thoracentesis, pleural culture negative Central and arterial lines have been removed and replaced with peripheral IVs Dopplers of lower extremities negative for DVT CT chest/abdomen/pelvis significant for lung abscess, necrotizing pancreatitis but lipase normal MRIs of cervical/thoracic/lumbar spine without epidural abscess or discitis MRSA swab remains negative - continue Levaquin and Flagyl, was started 04/07, will need 4 weeks to treat possible lung abscess-changed to p.o. antibiotics on 04/20 echo: EF 70%, no vegetations, normal valves Fevers are now resolved (4) Cerebral parenchymal hemorrhage: Plan: new finding on CT head on 04/13 small, 5mm area right parietal lobe, also with trace subarachnoid hemorrhage left frontal lobe repeat head CT 04/13 and 04/14 with stable hemorrhage neurology consulted, likely bleed in setting of hypertension, Lovenox MRI brain and MRA brain on 04/14: unchanged right 5mm parenchymal hemorrhage, normal angiography no further imaging planned unless mental status changes Has since been restarted on SQ Lovenox (5) Bradycardia: Plan: with sinus terry initially while on BIPAP prior to intubation HR dropped to 20's on 04/12, required atropine, pacer pads on stopped metoprolol due to frequent pauses Has had some significant sinus pauses at times which seem to have improved now (6) SVT (supraventricular tachycardia): Plan: Had SVT to the 200s on the evening of 04/07 with associated hypotension requiring esmolol, amiodarone, adenosine x3, synchronized cardioversion x5 Also had further atrial fibrillation on 04/07 and again on the night of 04/09 Now back in normal sinus rhythm ever since stopped metoprolol 25mg BID due to pauses Continue to replace electrolytes as needed (7) Pneumonia due to COVID-19 virus: Plan: completed treatment with dexamethasone received Tocilizumab removed from neg pressure isolation 04/15 (8) Hypertension: Plan: Had significant hypertension which is now much improved since restarting home losartan 100 mg p.o. once daily -Continue amlodipine 10mg daily Still with some hypertension here-now with diuresis with Lasix as above (9) Hypokalemia: Plan: Resolved Follow BMP (10) BPH loc w urin obs/LUTS: Plan: Rogers catheter in place Will need to remove Rogers catheter once he is more mobile (11) Lung abscess: Plan: As above Status post aspiration Follow cultures-no growth to date Continue levofloxacin, metronidazole for 4 weeks total Chest x-ray 04/23 still with some loculated pleural effusion on the right Follow chest x-ray (12) Pancreatitis: Plan: Visualized on CT of the abdomen with suspected necrotizing pancreatitis Lipase normal, triglycerides improving He does have some mild abdominal pain but it is lower and is likely related to constipation but is now improving Tube feeds discontinued and on regular diet (13) Gout: Plan: Complaint of pain in the great toe on 04/19, with erythema of the first MTP joint with tenderness Increase prednisone to 10 mg daily on 04/20 given ongoing pain-now improving (14) Paroxysmal atrial fibrillation: Plan: Had intermittent rapid atrial fibrillation when he was critically ill and on the ventilator-this has now been resolved for many days No need for long-term anticoagulation at this point especially in the setting of subarachnoid hemorrhage which occurred also during time of critical illness Continue telemetry monitoring (15) Hip pain: Plan: Right hip pain and sciatica developed on 04/23 Reposition, needs mobilization and PT Give oxycodone as needed (16) Anxiety: Plan: Likely secondary to benzodiazepine withdrawal-his clonazepam was discontinued on 04/19 Start lorazepam 0.5 mg p.o. every 8 hours as needed anxiety Plan: DVT prophylaxis: SCD, Lovenox Disposition: Stable for downgrade to PCU, prognosis is improving a lot each day, remarkable recovery ultimately will need LTACH-referral has been made and awaiting approval CODE STATUS: conditional code Admission and Anticipated Discharge Date Admission Date: March 20, 2021 Subjective Patient reports feeling worse today than he had been. Feeling anxious in general. He had some brief pain across his chest earlier in an EKG was without change but that went away on its own. He also has developed fairly severe 9/10 in severity pain in his right hip that travels down the right lower extremity. The pain from the gout in his right foot is also still present. He denies shortness of breath. He is using his speaking valve today and pulse ox remains around 88%, but does improve when speaking valve is removed as per nursing. Telemetry remains in sinus rhythm He remains on trach collar but was on pressure support through the night Patient's last bowel movement was yesterday. Review of Systems Review of Systems: All systems reviewed & are unremarkable except as noted in HPI & below Physical Exam Constitutional: WD/WN, vitals as above Eyes: + anicteric sclerae Neck: trachea midline, no thyromegaly (With tracheostomy tube in place) + tracheostomy present Respiratory: normal respiratory effort Auscultation: + diminished lung sounds (At right lower and middle lung hayden) and + crackles (Bilateral lower and middle lung hayden); no rhonchi and no wheezes Cardiovascular: Rate/Rhythm: regular rate and regular rhythm Heart Sounds: no murmur Extremities: + edema (3+ pitting edema in all extremities); no calf tenderness Chest (Breasts): Chest: normal inspection of chest Gastrointestinal (Abdomen): normal bowel sounds, soft, nontender, no hepatosplenomegaly Musculoskeletal: Extremities: no cyanosis and no clubbing Right MTP joint still with mild erythema and positive tenderness to palpation Positive tenderness palpation of the right greater trochanter Skin: no rashes, warm and dry Neurologic: awake; no focal motor deficits Psychiatric: Orientation: alert, oriented x 3 and cooperative Affect: + anxious affect Mood: + anxious mood Lymphatic: no lymphedema Results & Data Results & Data ([facility]) Vital Signs (Past 12 Hours) Vital Signs Pulse Resp BP Pulse Ox 04/23/21 09:01 85 23 151/77 H 88 L 04/23/21 08:01 96 H 27 H 139/93 87 L 04/23/21 07:01 94 H 26 H 137/77 93 04/23/21 06:01 88 26 H 163/71 H 95 04/23/21 05:39 91 H 24 155/74 H 85 L 04/23/21 05:01 86 22 143/78 H 90 PG Care Time/CCT Total # of Minutes Spent Total Time Spent with Patient: Total time spent is greater than 50% in coordination of care (as documented) at patient's floor/unit and/or counseling patient: Coding Level of Care Code 78458 Subseq Hosp Care Lvl 3 Diagnoses Acute respiratory failure with hypoxia J96.01 AMS (altered mental status) R41.82 Fever R50.9 Cerebral parenchymal hemorrhage I61.9 Bradycardia R00.1 SVT (supraventricular tachycardia) I47.1 Pneumonia due to COVID-19 virus U07.1; J12.82 Hypertension I10 Hypokalemia E87.6 BPH loc w urin obs/LUTS N40.1 Lung abscess J85.2 Pancreatitis K85.90 Gout M10.9 Paroxysmal atrial fibrillation I48.0 Hip pain M25.559 Anxiety F41.9
[2021-04-23] MEDS: oxyCODONE HCL IR 5 MG TAB (IMMEDIATE RELEASE) PO PRN ×2 (16:59→22:48)
--- NOTE | 2021-04-23 16:59 | Electrocardiogram Report ---
Test Reason : Blood Pressure : / mmHG Vent. Rate : 103 BPM Atrial Rate : 103 BPM P-R Int : 138 ms QRS Dur : 106 ms QT Int : 356 ms P-R-T Axes : 011 -05 140 degrees QTc Int : 466 ms Sinus tachycardia Left ventricular hypertrophy with repolarization abnormality Abnormal ECG When compared with ECG of 12-APR-2021 10:42, Vent. rate has increased BY 39 BPM Nonspecific T wave abnormality, improved in Inferior leads Confirmed by Ean Rust ([id number]) on 04/23/2021 4:59:23 PM Referred By: REFERRED SELF Confirmed By:Ean Rust
--- NOTE | 2021-04-23 17:12 | XRay Report ---
SINGLE VIEW CHEST CLINICAL HISTORY: Atypical chest pain. FINDINGS: 3 AP, portable, upright chest radiographs are compared to study dated 04/20/2021 and correla cesar with chest CT dated 04/09/2021. The examination is degraded by portable technique and patient rota tion. A tracheostomy is unchanged in position. An enteric tube has been removed. The heart is enlarge d noting atherosclerotic calcification of the thoracic aorta. Multifocal airspace consolidation has n ot significantly changed from 04/20/2021. There is a right pleural effusion which is at least partiall y loculated. No significant pleural effusion is seen on the left. No pneumothorax is seen. The bony t horax is grossly intact. IMPRESSION: 1. An enteric tube has been removed. 2. Cardiomegaly. 3. Findings of multifocal airspace consolidation and a loculated right pleural effusion have not sign ificantly changed as compared to 04/20/2021. ACT 112: Negative or not required by law. Electronically signed by: Talat Lea M.D. 04/23/2021 5:10 PM
[2021-04-23] MEDS: MAGNESIUM OXIDE 400 MG TAB PO SCH (21:14)
[2021-04-23] MEDS: ZINC SULFATE 220 MG CAPSULE PO SCH (21:14)
[2021-04-23] MEDS: ACETAMINOPHEN 325 MG TAB PO PRN (21:46)
[2021-04-24 07:57] LABS: BUN Creatinine Ratio 25.2 (10-20); Calcium 8.2 mg/dl (8.5-10.1); Creatinine Clr Calc Pharmacy 104.4 ml/min; Est GFR (African American) 99.2 ml/min; Est GFR (Non-African American) 85.6 ml/min; Magnesium 2.4 mg/dl (1.8-2.4); Potassium 3.9 mmol/L (3.5-5.1)
[2021-04-24] MEDS ORDERED: POTASSIUM CHLORIDE CRTAB 20 MEQ TABCR PO STA (08:41)
[2021-04-24] MEDS: metroNIDAZOLE 500 MG TAB PO SCH ×2 (08:46→16:19)
[2021-04-24] MEDS: amLODIPine BESYLATE 5 MG TAB PO SCH (08:46)
[2021-04-24] MEDS: ENOXAPARIN INJ 40 MG/0.4 ML SYR SQ SCH (08:49)
[2021-04-24] MEDS: levoFLOXacin 750 MG TAB PO SCH (08:50)
[2021-04-24] MEDS: LANSOPRAZOLE 30 MG SOLTAB OG SCH ×2 (08:50→21:16)
[2021-04-24] MEDS: LOSARTAN POTASSIUM 50 MG TAB PO SCH (08:50)
[2021-04-24] MEDS: NYSTATIN SUSP 500,000 U/5 ML UDC PO SCH ×3 (08:52→21:16)
--- NOTE | 2021-04-24 09:17 | Hospitalist Progress Note ---
Date of Service April 24, 2021 Assessment & Plan (1) Acute respiratory failure with hypoxia: Plan: due to COVID 19 pneumonia, bilateral infiltrates on CXR Was requiring prone positioning and BiPAP while awake, but then weaned down to wall high flow nasal cannula at 11-15 L on 03/23 However, on 03/24 worsened again was placed back on Vapotherm high flow nasal cannula On 03/25, requiring higher amounts of oxygen at 40 L and up to 80 % FiO2 to maintain pulse ox 90-91% On 03/26 switched to Ventilator HFNC at 60L, 100% FiO2 to keep POx>88%---> continued to decompensate on the morning of 03/27 and was intubated and proned He was not a candidate for ECMO Previously had pneumomediastinum which is now resolved Status post tocilizumab on 03/21 Completed a course of high-dose dexamethasone initially with 10 mg daily and then on 03/28, increased to 20 mg daily x5 days, then 10 mg daily x5 days Now status post tracheostomy on 04/05-now tolerating trach collar continue d istally and wean down to 10 L / 70% FiO2, occasionally needs pressure support at night Tracheostomy tube was downsized to a 6 on 04/22 NG tube removed on 04/20 and is tolerating a regular diet after speech therapy evaluation Klonopin q12 is now discontinued as of 04/19, but with some withdrawal symptoms and anxiety on 04/23-added lorazepam 0.5 mg p.o. every 8 hours as needed for anxiety-he has not yet used a dose Oxycodone PRN for opiate withdrawal or pain For insomnia-added magnesium, Ambien as needed which is helping With significant anasarca-continue Lasix 40 mg IV x1 today, redose daily as n eeded-give another dose on 04/24 (2) Pneumonia due to COVID-19 virus: Plan: completed treatment with dexamethasone received Tocilizumab removed from neg pressure isolation 04/15 (3) AMS (altered mental status): Plan: Now resolved since 04/17 he is oriented, following commands, visiting with family, is getting out of bed to chair every day Was secondary to ICU delirium, hypernatremia, fevers, infection, elevated ammonia-all now resolved Also did have a small parenchymal hemorrhage which was stable on repeat imaging Continue treating lung abscess with levofloxacin and metronidazole all sedation is off at this point-using lorazepam as needed (4) Fever: Plan: Now completely resolved Secondary to group C beta strep bacterial pneumonia Blood cultures positive on 04/09 for coagulase-negative Staphylococcus in 1/2 sets-likely contaminant Blood cultures 04/10-no growth to date Also suspected acute sinusitis/large mastoid effusions seen on MRI brain With right lung abscess on CT chest on 04/09--negative AFB, culture no growth to date right pleural effusion - thoracentesis, pleural culture negative Central and arterial lines were removed and replaced with peripheral IVs Dopplers of lower extremities negative for DVT CT chest/abdomen/pelvis significant for lung abscess, necrotizing pancreatitis but lipase normal MRIs of cervical/thoracic/lumbar spine without epidural abscess or discitis MRSA swab remains negative echo: EF 70%, no vegetations, normal valves -Plan to continue Levaquin and Flagyl for lung abscess x4-week course-was started 04/07, last date of treatment will be 05/05/2021 -Will need follow-up chest imaging in 4 to 6 weeks (5) Cerebral parenchymal hemorrhage: Plan: new finding on CT head on 04/13 small, 5mm area right parietal lobe, also with trace subarachnoid hemorrhage left frontal lobe repeat head CT 04/13 and 04/14 with stable hemorrhage neurology consulted, likely bleed in setting of hypertension, Lovenox MRI brain and MRA brain on 04/14: unchanged right 5mm parenchymal hemorrhage, normal angiography no further imaging planned unless mental status changes Has since been restarted on SQ Lovenox (6) Bradycardia: Plan: with sinus terry initially while on BIPAP prior to intubation HR dropped to 20's on 04/12, required atropine, pacer pads on stopped metoprolol due to frequent pauses Has had some significant sinus pauses at times which seem to have improved now (7) SVT (supraventricular tachycardia): Plan: Had SVT to the 200s on the evening of 04/07 with associated hypotension requiring esmolol, amiodarone, adenosine x3, synchronized cardioversion x5 Also had further atrial fibrillation on 04/07 and again on the night of 04/09 Now back in normal sinus rhythm ever since stopped metoprolol 25mg BID due to lungs minus pauses Continue to replace electrolytes as needed (8) Hypertension: Plan: Had significant hypertension which likely led to cerebral parenchymal hemorrhage as above Blood pressures are now much improved since restarting home losartan 100 mg p.o. once daily, continuing amlodipine 10 mg daily Diuresing with IV Lasix (9) Hypokalemia: Plan: Resolved Follow BMP and replace as needed-give 20 mEq potassium chloride today given IV Lasix and potassium 3.9 (10) BPH loc w urin obs/LUTS: Plan: Rogers catheter in place Will need to remove Rogers catheter once he is more mobile (11) Lung abscess: Plan: As above Status post aspiration cultures-no growth to date Continue levofloxacin, metronidazole for 4 weeks total Chest x-ray 04/23 still with some loculated pleural effusion on the right Follow chest CT in 4 to 6 weeks (12) Pancreatitis: Plan: Visualized on CT of the abdomen with suspected necrotizing pancreatitis Lipase normal, triglycerides improving but were never severely elevated He does have some mild abdominal pain but it is lower and is likely related to constipation but is now improving Tube feeds discontinued and on low-fat diet (13) Gout: Plan: Complaint of pain in the great toe on 04/19, with erythema of the first MTP joint with tenderness Received 5-day course of prednisone 10 mg daily (14) Paroxysmal atrial fibrillation: Plan: Had intermittent rapid atrial fibrillation when he was critically ill and on the ventilator-this has now been resolved for many days No need for long-term anticoagulation at this point especially in the setting of subarachnoid hemorrhage which occurred also during time of critical illness Continue telemetry monitoring (15) Hip pain: Plan: Right hip pain and sciatica developed on 04/23-pain is improved now with repositioning oxycodone Continue to reposition, needs mobilization and PT Give oxycodone as needed (16) Anxiety: Plan: Likely secondary to benzodiazepine withdrawal-his clonazepam was discontinued on 04/19 Started lorazepam 0.5 mg p.o. every 8 hours as needed for anxiety (17) Anemia: Plan: Hemoglobin remains low but stable at 8.9, normocytic Now with developing likely reactive thrombocytosis Most likely iron deficiency Check iron studies in the morning and replace iron as needed Follow CBC Plan: DVT prophylaxis: SCD, Lovenox Disposition: Continued stay on PCU, prognosis is improving a lot each day, remarkable recovery Originally referred to LTACH, however may not qualify at this point as he is not needing the ventilator for support as much-we will see how he does through the rest of the weekend and may end up referring to acute rehab rather than LTACH CODE STATUS: conditional code Admission and Anticipated Discharge Date Admission Date: March 20, 2021 Subjective Reports feeling much better today. The pain in his right hip and down the leg i s only a 2 out of 10 and is much improved. He denies any anxiety. No chest pain or shortness of breath. He slept very well he reports. Review of Systems Review of Systems: All systems reviewed & are unremarkable except as noted in HPI & below Physical Exam Constitutional: WD/WN, vitals as above Eyes: + anicteric sclerae ENMT: external ear and nose normal, oropharynx normal Neck: trachea midline, no thyromegaly (With tracheostomy tube in place) + tracheostomy present Respiratory: Auscultation: + diminished lung sounds (At right lower and middle lung hayden) and + crackles (Bilateral lower and middle lung hayden); no rhonchi and no wheezes Cardiovascular: Rate/Rhythm: regular rate and regular rhythm Heart Sounds: no murmur Extremities: + edema (2+ pitting edema in all extremities); no calf tenderness Chest (Breasts): Chest: normal inspection of chest Gastrointestinal (Abdomen): normal bowel sounds, soft, nontender, no hepatosplenomegaly Musculoskeletal: Extremities: no cyanosis and no clubbing Skin: no rashes, warm and dry Neurologic: awake; no focal motor deficits Psychiatric: A+Ox3, euthymic affect Results & Data Results & Data ([facility]) Vital Signs (Past 12 Hours) Vital Signs Temp Pulse Resp BP Pulse Ox 04/24/21 03:01 37.1 C 68 24 127/68 98 04/24/21 02:01 76 18 116/67 96 04/24/21 01:01 78 18 124/64 95 04/24/21 00:01 36.8 C 83 21 127/73 97 04/23/21 23:12 88 04/23/21 23:03 85 20 93 04/23/21 22:01 93 H 25 H 136/73 94 Laboratory Results 04/24/21 09:19 04/24/21 07:01 PG Care Time/CCT Total # of Minutes Spent Total Time Spent with Patient: Total time spent is greater than 50% in coordination of care (as documented) at patient's floor/unit and/or counseling patient: Coding Level of Care Code 55906 Subseq Hosp Care Lvl 3 Diagnoses Acute respiratory failure with hypoxia J96.01 AMS (altered mental status) R41.82 Fever R50.9 Cerebral parenchymal hemorrhage I61.9 Bradycardia R00.1 SVT (supraventricular tachycardia) I47.1 Pneumonia due to COVID-19 virus U07.1; J12.82 Hypertension I10 Hypokalemia E87.6 BPH loc w urin obs/LUTS N40.1 Lung abscess J85.2 Pancreatitis K85.90 Gout M10.9 Paroxysmal atrial fibrillation I48.0 Hip pain M25.559 Anxiety F41.9 Anemia D64.9
[2021-04-24] MEDS: FUROSEMIDE 40 MG in SYRINGE 0 ML IV SCH (09:20)
[2021-04-24] MEDS: INSULIN ASPART 100 UNITS/ML 3 ML PEN SC SCH ×4 (09:21→21:16)
[2021-04-24 09:59] LABS: Basophils # (auto) 0.01 K/uL (0-0.2); Basophils % (auto) 0.1 %; Eosinophils # (auto) 0.15 K/uL (0-0.5); Eosinophils % (auto) 1.2 %; Hematocrit (blood only) 28.3 % (42-52); Hemoglobin 8.9 g/dL (14.0-18.0); Immature Granulocytes # (auto) 0.16 K/uL (0.00-0.02); Immature Granulocytes % (auto) 1.2 %; Lymphocytes # (auto) 0.88 K/uL (1.2-3.4); Lymphocytes % (auto) 6.8 %; Mean Corpuscular Hemoglobin 28.8 pg (25-34); Mean Corpuscular Volume 91.6 fL (80-100); Mean Platelet Volume 9.4 fL (7.4-10.4); Monocytes # (auto) 0.99 K/uL (0.11-0.59); Monocytes % (auto) 7.6 %; Neutrophils % (auto) 83.1 %; Platelet Count 523 K/uL (130-400); RDW Coefficient of Variation 14.4 % (11.5-14.5); RDW Standard Deviation 47.6 fL (36.4-46.3); Red Blood Count 3.09 M/uL (4.7-6.1); White Blood Count 12.99 K/uL (4.8-10.8)
[2021-04-24 10:52] LABS: Mean Corpuscular Hgb Conc 31.4 g/dL (32-36)
[2021-04-24] MEDS: oxyCODONE HCL IR 5 MG TAB (IMMEDIATE RELEASE) PO PRN ×2 (13:47→22:24)
[2021-04-24] MEDS: ACETAMINOPHEN 325 MG TAB PO PRN (21:15)
[2021-04-24] MEDS: MAGNESIUM OXIDE 400 MG TAB PO SCH (21:16)
[2021-04-24] MEDS: ZINC SULFATE 220 MG CAPSULE PO SCH (21:16)
[2021-04-25] MEDS: metroNIDAZOLE 500 MG TAB PO SCH ×4 (01:37→23:20)
[2021-04-25 05:24] LABS: Basophils # (auto) 0.01 K/uL (0-0.2); Basophils % (auto) 0.1 %; Eosinophils % (auto) 1.7 %; Hematocrit (blood only) 27.4 % (42-52); Hemoglobin 8.7 g/dL (14.0-18.0); Immature Granulocytes # (auto) 0.14 K/uL (0.00-0.02); Immature Granulocytes % (auto) 1.2 %; Lymphocytes # (auto) 1.03 K/uL (1.2-3.4); Mean Corpuscular Hemoglobin 29.2 pg (25-34); Mean Corpuscular Hgb Conc 31.8 g/dL (32-36); Mean Corpuscular Volume 91.9 fL (80-100); Mean Platelet Volume 8.8 fL (7.4-10.4); Monocytes # (auto) 0.86 K/uL (0.11-0.59); Monocytes % (auto) 7.5 %; Neutrophils # (auto) 9.21 K/uL (1.4-6.5); Neutrophils % (auto) 80.5 %; Platelet Count 439 K/uL (130-400); RDW Coefficient of Variation 14.4 % (11.5-14.5); RDW Standard Deviation 48.2 fL (36.4-46.3); Red Blood Count 2.98 M/uL (4.7-6.1); White Blood Count 11.45 K/uL (4.8-10.8)
[2021-04-25 05:44] LABS: Albumin Level 1.7 gm/dl (3.4-5.0); BUN Creatinine Ratio 26.7 (10-20); Calcium 8.1 mg/dl (8.5-10.1); Creatinine Clr Calc Pharmacy 119.4 ml/min; Est GFR (African American) 110.3 ml/min; Est GFR (Non-African American) 95.2 ml/min; Magnesium 2.2 mg/dl (1.8-2.4); Potassium 3.6 mmol/L (3.5-5.1)
[2021-04-25 05:50] LABS: Albumin Globulin Ratio 0.4 (0.9-2); Bilirubin,Total 0.2 mg/dl (0.2-1); Globulin 3.8 gm/dl (2.5-4.0); Total Protein 5.5 gm/dl (6.4-8.2)
[2021-04-25] MEDS: amLODIPine BESYLATE 5 MG TAB PO SCH (07:54)
[2021-04-25] MEDS: LOSARTAN POTASSIUM 50 MG TAB PO SCH (07:58)
[2021-04-25] MEDS: levoFLOXacin 750 MG TAB PO SCH (07:58)
[2021-04-25] MEDS: LANSOPRAZOLE 30 MG SOLTAB OG SCH ×2 (07:58→20:59)
[2021-04-25] MEDS: ENOXAPARIN INJ 40 MG/0.4 ML SYR SQ SCH (07:58)
[2021-04-25] MEDS: NYSTATIN SUSP 500,000 U/5 ML UDC PO SCH ×3 (07:59→21:00)
[2021-04-25] MEDS ORDERED: POTASSIUM CHLORIDE CRTAB 20 MEQ TABCR PO STA (08:03)
[2021-04-25] MEDS: INSULIN ASPART 100 UNITS/ML 3 ML PEN SC SCH ×4 (08:14→21:07)
[2021-04-25] MEDS: FUROSEMIDE 40 MG in SYRINGE 0 ML IV SCH (08:16)
[2021-04-25] MEDS: IRON SUCROSE 300 MG in SODIUM CHLORIDE 0.9% 250 ML IV SCH (09:25)
--- NOTE | 2021-04-25 10:45 | Hospitalist Progress Note ---
Date of Service April 25, 2021 Assessment & Plan (1) Acute respiratory failure with hypoxia: Plan: due to COVID 19 pneumonia, bilateral infiltrates on CXR Was requiring prone positioning and BiPAP while awake, but then weaned down to wall high flow nasal cannula at 11-15 L on 03/23 However, on 03/24 worsened again was placed back on Vapotherm high flow nasal cannula On 03/25, requiring higher amounts of oxygen at 40 L and up to 80 % FiO2 to maintain pulse ox 90-91% On 03/26 switched to Ventilator HFNC at 60L, 100% FiO2 to keep POx>88%---> continued to decompensate on the morning of 03/27 and was intubated and proned He was not a candidate for ECMO Previously had pneumomediastinum which is now resolved Status post tocilizumab on 03/21 Completed a course of high-dose dexamethasone initially with 10 mg daily and then on 03/28, increased to 20 mg daily x5 days, then 10 mg daily x5 days Now status post tracheostomy on 04/05-now tolerating trach collar continue distally and wean down to 10 L / 70% FiO2, occasionally needs pressure support at night but has not required this since the night of 04/22 Tracheostomy tube was downsized to a size 6 on 04/22 NG tube removed on 04/20 and is tolerating a regular diet after speech therapy evaluation Klonopin q12 is now discontinued as of 04/19, but with some withdrawal symptoms and anxiety on 04/23-added lorazepam 0.5 mg p.o. every 8 hours as needed for anxiety-he has not yet used a dose Oxycodone PRN for opiate withdrawal or pain For insomnia-added magnesium, Ambien as needed which is helping With significant anasarca which is starting to improve-continue Lasix 40 mg IV daily (2) Pneumonia due to COVID-19 virus: Plan: completed treatment with dexamethasone received Tocilizumab removed from neg pressure isolation 04/15 (3) AMS (altered mental status): Plan: With acute encephalopathy-now resolved since 04/17 he is oriented, following commands, visiting with family, is getting out of bed to chair every day Was secondary to ICU delirium, hypernatremia, fevers, infection, elevated ammonia-all now resolved Also did have a small parenchymal hemorrhage which was stable on repeat imaging Continue treating lung abscess with levofloxacin and metronidazole all sedation is off at this point-using lorazepam as needed (4) Fever: Plan: Now completely resolved Secondary to group C beta strep bacterial pneumonia Blood cultures positive on 04/09 for coagulase-negative Staphylococcus in 1/2 sets-likely contaminant Blood cultures 04/10-negative Also suspected acute sinusitis/large mastoid effusions seen on MRI brain With right lung abscess on CT chest on 04/09--negative AFB, culture no growth to date right pleural effusion - thoracentesis, pleural culture negative Central and arterial lines were removed and replaced with peripheral IVs Dopplers of lower extremities negative for DVT CT chest/abdomen/pelvis significant for lung abscess, necrotizing pancreatitis but lipase normal MRIs of cervical/thoracic/lumbar spine without epidural abscess or discitis MRSA swab remains negative echo: EF 70%, no vegetations, normal valves -Plan to continue Levaquin and Flagyl for lung abscess x4-week course-was started 04/07, last date of treatment will be 05/05/2021 -Will need follow-up chest imaging in 4 to 6 weeks (5) Cerebral parenchymal hemorrhage: Plan: new finding on CT head on 04/13 small, 5mm area right parietal lobe, also with trace subarachnoid hemorrhage left frontal lobe repeat head CT 04/13 and 04/14 with stable hemorrhage neurology consulted, likely bleed in setting of hypertension, Lovenox MRI brain and MRA brain on 04/14: unchanged right 5mm parenchymal hemorrhage, normal angiography no further imaging planned unless mental status changes Has since been restarted on SQ Lovenox (6) Bradycardia: Plan: with sinus terry initially while on BIPAP prior to intubation HR dropped to 20's on 04/12, required atropine, pacer pads on stopped metoprolol due to frequent pauses Has had some significant sinus pauses at times which have now been resolved from a long time (7) SVT (supraventricular tachycardia): Plan: Had SVT to the 200s on the evening of 04/07 with associated hypotension requiring esmolol, amiodarone, adenosine x3, synchronized cardioversion x5 Also had further atrial fibrillation on 04/07 and again on the night of 04/09 Now back in normal sinus rhythm ever since stopped metoprolol 25mg BID due to long sinus pauses Continue to replace electrolytes as needed-giving potassium along with IV Lasix to keep K above 4 (8) Hypertension: Plan: Had significant hypertension which likely led to cerebral parenchymal hemorrhage as above Blood pressures are now much significantly improved since restarting home losartan 100 mg p.o. once daily, continuing amlodipine 10 mg daily Continue diuresing with IV Lasix (9) Hypokalemia: Plan: Improved, continue to replace potassium chloride to keep K above 4 while diuresing with IV Lasix Follow BMP (10) BPH loc w urin obs/LUTS: Plan: Rogers catheter remains in place Diuresing in the setting of anasarca Will need to remove Rogers catheter once he is more mobile (11) Lung abscess: Plan: As above Status post aspiration cultures-no growth Continue levofloxacin, metronidazole for 4 weeks total Chest x-ray 04/23 still with some loculated pleural effusion on the right Follow chest CT in 4 to 6 weeks (12) Pancreatitis: Plan: Visualized on CT of the abdomen with suspected necrotizing pancreatitis Lipase normal, triglycerides improving but were never severely elevated No abdominal pain Continues on low-fat diet (13) Gout: Plan: Complaint of pain in the great toe on 04/19, with erythema of the first MTP joint with tenderness Received 5-day course of prednisone 10 mg daily and symptoms are now greatly improved (14) Paroxysmal atrial fibrillation: Plan: Had intermittent rapid atrial fibrillation when he was critically ill and on the ventilator-this has now been resolved for many days No need for long-term anticoagulation at this point especially in the setting of subarachnoid hemorrhage which occurred also during time of critical illness Continue telemetry monitoring (15) Hip pain: Plan: Right hip pain and sciatica developed on 04/23-pain is improved now with repositioning oxycodone Continue to reposition, needs mobilization and PT Give oxycodone as needed (16) Anxiety: Plan: Likely secondary to benzodiazepine withdrawal-his clonazepam was discontinued on 04/19 Started lorazepam 0.5 mg p.o. every 8 hours as needed for anxiety (17) Anemia: Plan: Hemoglobin remains low but stable at 8.7, normocytic Now with developing reactive thrombocytosis with platelets in the 400s-500s Most likely iron deficiency Iron studies show transferrin saturation 17% Start Venofer 300 mg IV daily x3 doses Follow CBC Plan: DVT prophylaxis: SCD, Lovenox Disposition: Continued stay on PCU, prognosis is improving a lot each day, remarkable recovery Originally referred to LTACH, however may not qualify at this point as he is not needing the ventilator for support as much-we will see how he does through the rest of the weekend and may end up referring to acute rehab rather than LTACH. Hopeful for discharge this week CODE STATUS: conditional code Admission and Anticipated Discharge Date Admission Date: March 20, 2021 Subjective Feeling well, pain in his hip is much better controlled with as needed oxycodone and he was able to sleep well again last night. He denies chest pains or shortness of breath. Remains on trach collar continuously and no pressure support needed He denies abdominal pains and was moving his bowels on a bedpan when I saw him. He is eating but reports he cannot eat a lot as he feels nauseated at times I discussed his care with the nurse. Telemetry remains in sinus rhythm with normal rates Review of Systems Review of Systems: All systems reviewed & are unremarkable except as noted in HPI & below Physical Exam Constitutional: WD/WN, vitals as above Eyes: + anicteric sclerae Neck: trachea midline, no thyromegaly (With tracheostomy tube in place) + tracheostomy present Respiratory: normal respiratory effort Auscultation: + diminished lung sounds (At right lower and middle lung hayden) and + crackles (Bilateral lower and middle lung hayden); no rhonchi and no wheezes Cardiovascular: Rate/Rhythm: regular rate and regular rhythm Heart Sounds: no murmur Extremities: + edema (2+ pitting edema in all extremities, slightly less than yesterday); no calf tenderness Chest (Breasts): Chest: normal inspection of chest Gastrointestinal (Abdomen): normal bowel sounds, soft, nontender, no hepatosplenomegaly Musculoskeletal: Extremities: no cyanosis and no clubbing Skin: no rashes, warm and dry Neurologic: awake; no focal motor deficits Psychiatric: A+Ox3, euthymic affect Results & Data Results & Data ([facility]) Vital Signs (Past 12 Hours) Vital Signs Temp Pulse Resp BP Pulse Ox 04/25/21 04:23 36.8 C 04/25/21 04:17 84 21 147/67 H 94 04/24/21 23:32 36.6 C 04/24/21 23:00 80 Laboratory Results 04/25/21 04/25/21 04/25/21 Range/Units 16:31 11:09 07:29 WBC (4.8-10.8) K/uL RBC (4.7-6.1) M/uL Hgb (14.0-18.0) g/dL Hct (42-52) % MCV (80-100) fL MCH (25-34) pg MCHC (32-36) g/dL RDW Std Deviation (36.4-46.3) fL RDW Coeff of Sujit (11.5-14.5) % Plt Count (130-400) K/uL MPV (7.4-10.4) fL Immature Gran % (Auto) % Neut % (Auto) % Lymph % (Auto) % Bell % (Auto) % Eos % (Auto) % Baso % (Auto) % Neut # (Auto) (1.4-6.5) K/uL Lymph # (Auto) (1.2-3.4) K/uL Bell # (Auto) (0.11-0.59) K/uL Eos # (Auto) (0-0.5) K/uL Baso # (Auto) (0-0.2) K/uL Immature Gran # (Auto) (0.00-0.02) K/uL Sodium (136-145) mmol/L Potassium (3.5-5.1) mmol/L Chloride (98-107) mmol/L Carbon Dioxide (21-32) mmol/L Anion Gap (3-11) BUN (7-18) mg/dl Creatinine (0.6-1.4) mg/dl Est Cr Clr Drug Dosing ml/min Est GFR ( Amer) ml/min Est GFR (Non-Af Amer) ml/min BUN/Creatinine Ratio (10-20) Glucose (70-99) mg/dl POC Glucose 118 H 128 H 128 H (70-99) mg/dl Calcium (8.5-10.1) mg/dl Magnesium (1.8-2.4) mg/dl Iron (35-175) mcg/dl TIBC (250-450) mcg/dl Transferrin (200-360) mg/dl Transferrin % Sat (20-50) % Ferritin (8-388) ng/ml Total Bilirubin (0.2-1) mg/dl AST (15-37) U/L ALT (12-78) U/L Alkaline Phosphatase (45-117) U/L Total Protein (6.4-8.2) gm/dl Albumin (3.4-5.0) gm/dl Globulin (2.5-4.0) gm/dl Albumin/Globulin Ratio (0.9-2) 04/25/21 04/25/21 04/24/21 Range/Units 04:58 04:58 21:02 WBC 11.45 H (4.8-10.8) K/uL RBC 2.98 L (4.7-6.1) M/uL Hgb 8.7 L (14.0-18.0) g/dL Hct 27.4 L (42-52) % MCV 91.9 (80-100) fL MCH 29.2 (25-34) pg MCHC 31.8 L (32-36) g/dL RDW Std Deviation 48.2 H (36.4-46.3) fL RDW Coeff of Sujit 14.4 (11.5-14.5) % Plt Count 439 H (130-400) K/uL MPV 8.8 (7.4-10.4) fL Immature Gran % (Auto) 1.2 % Neut % (Auto) 80.5 % Lymph % (Auto) 9.0 % Bell % (Auto) 7.5 % Eos % (Auto) 1.7 % Baso % (Auto) 0.1 % Neut # (Auto) 9.21 H (1.4-6.5) K/uL Lymph # (Auto) 1.03 L (1.2-3.4) K/uL Bell # (Auto) 0.86 H (0.11-0.59) K/uL Eos # (Auto) 0.20 (0-0.5) K/uL Baso # (Auto) 0.01 (0-0.2) K/uL Immature Gran # (Auto) 0.14 H (0.00-0.02) K/uL Sodium 140 (136-145) mmol/L Potassium 3.6 (3.5-5.1) mmol/L Chloride 104 (98-107) mmol/L Carbon Dioxide 30 (21-32) mmol/L Anion Gap 6.0 (3-11) BUN 22 H (7-18) mg/dl Creatinine 0.84 (0.6-1.4) mg/dl Est Cr Clr Drug Dosing 119.4 ml/min Est GFR ( Amer) 110.3 ml/min Est GFR (Non-Af Amer) 95.2 ml/min BUN/Creatinine Ratio 26.7 H (10-20) Glucose 118 H (70-99) mg/dl POC Glucose 125 H (70-99) mg/dl Calcium 8.1 L (8.5-10.1) mg/dl Magnesium 2.2 (1.8-2.4) mg/dl Iron 27 L (35-175) mcg/dl TIBC 143 L (250-450) mcg/dl Transferrin 115 L (200-360) mg/dl Transferrin % Sat 17 L (20-50) % Ferritin 693.0 H (8-388) ng/ml Total Bilirubin 0.2 (0.2-1) mg/dl AST 20 (15-37) U/L ALT 21 (12-78) U/L Alkaline Phosphatase 84 (45-117) U/L Total Protein 5.5 L (6.4-8.2) gm/dl Albumin 1.7 L (3.4-5.0) gm/dl Globulin 3.8 (2.5-4.0) gm/dl Albumin/Globulin Ratio 0.4 L (0.9-2) PG Care Time/CCT Total # of Minutes Spent Total Time Spent with Patient: Total time spent is greater than 50% in coordination of care (as documented) at patient's floor/unit and/or counseling patient: Coding Level of Care Code 56734 Subseq Hosp Care Lvl 3 Diagnoses Acute respiratory failure with hypoxia J96.01 Pneumonia due to COVID-19 virus U07.1; J12.82 AMS (altered mental status) R41.82 Fever R50.9 Cerebral parenchymal hemorrhage I61.9 Bradycardia R00.1 SVT (supraventricular tachycardia) I47.1 Hypertension I10 Hypokalemia E87.6 BPH loc w urin obs/LUTS N40.1 Lung abscess J85.2 Pancreatitis K85.90 Gout M10.9 Paroxysmal atrial fibrillation I48.0 Hip pain M25.559 Anxiety F41.9 Anemia D64.9
[2021-04-25] MEDS: oxyCODONE HCL IR 5 MG TAB (IMMEDIATE RELEASE) PO PRN ×2 (11:15→23:20)
[2021-04-25] MEDS: ACETAMINOPHEN 325 MG TAB PO PRN (11:15)
[2021-04-25] MEDS: MAGNESIUM OXIDE 400 MG TAB PO SCH (20:59)
[2021-04-25] MEDS: ZINC SULFATE 220 MG CAPSULE PO SCH (21:00)
[2021-04-25] MEDS ORDERED: ONDANSETRON INJ 2 MG/ML 2 ML VIAL IV PRN (22:33)
[2021-04-26] MEDS: LANSOPRAZOLE 30 MG SOLTAB OG SCH ×2 (08:54→20:23)
[2021-04-26] MEDS: metroNIDAZOLE 500 MG TAB PO SCH ×2 (08:54→16:02)
[2021-04-26] MEDS: levoFLOXacin 750 MG TAB PO SCH (08:54)
[2021-04-26] MEDS: LOSARTAN POTASSIUM 50 MG TAB PO SCH (08:55)
[2021-04-26] MEDS: amLODIPine BESYLATE 5 MG TAB PO SCH (08:55)
[2021-04-26] MEDS: ENOXAPARIN INJ 40 MG/0.4 ML SYR SQ SCH (08:55)
[2021-04-26] MEDS: NYSTATIN SUSP 500,000 U/5 ML UDC PO SCH (08:57)
[2021-04-26] MEDS: FUROSEMIDE 40 MG in SYRINGE 0 ML IV SCH (08:57)
[2021-04-26] MEDS: INSULIN ASPART 100 UNITS/ML 3 ML PEN SC SCH ×4 (08:58→20:23)
[2021-04-26] MEDS: IRON SUCROSE 300 MG in SODIUM CHLORIDE 0.9% 250 ML IV SCH (09:10)
[2021-04-26] MEDS: oxyCODONE HCL IR 5 MG TAB (IMMEDIATE RELEASE) PO PRN ×2 (10:08→16:01)
--- NOTE | 2021-04-26 10:13 | Palliative Care Progress Note ---
Date of Service April 26, 2021 Assessment & Plan (1) Palliative care encounter: Plan: Bill continues to improve. He has been tolerating trach collar over the weekend without any vent support. He is no longer having anxiety regarding his breathing. He is fully awake, alert, oriented and able to converse via PM valve. We revisited his code status and discussed him currently being a conditional code. He confirmed that he would NOT want CPR should he experience asystole. He does understand that defibrillation goes hand in hand with that as well and is ok with cardioversion, but not defibrillation. At this time, case management is working on transitioning to [facility] for acute rehab. At this time, palliative medicine will sign off. Should you require any additional assistance with this patient, please re-involve us. (2) AMS (altered mental status): Plan: Improving. He is able to interact and follow simple commands. (3) Weakness: Plan: Expected weakness for a patient with 30 + day inpatient ICU stay. PT/OT started this week. Was OOB via mechanical lift today with PT/OT; continues to require 3 max assist. Aggressive PT/OT expected to continue at acute rehab. (4) Lung abscess: (5) Pancreatitis: (6) Pneumonia due to COVID-19 virus: Plan: Tolerating trach collar 20/02 Admission and Anticipated Discharge Date Admission Date: March 20, 2021 Subjective Patient remains on trach collar. He has not required any vent support over the weekend. He is able to talk with PM valve in place. He denies pain or SOB. He is on 10L trach collar. Has remained in NS[facility] over the weekend. See AP for further details Review of Systems Review of Systems: [place] [facility] Assessment Scale: Pain: 0/3 SOB: 1/3 Tiredness: 1/3 Palliative Performance Scale: 50% Physical Exam Constitutional: + ill appearing, cooperative and comfortable Respiratory: + cough Cardiovascular: Rate/Rhythm: regular rate and regular rhythm Extremities: + edema Gastrointestinal (Abdomen): Inspection/Auscultation: abdomen normal to inspection Percussion/Palpation: + abdomen tender Skin: + skin tightening and + ecchymosis Neurologic: + obtunded Psychiatric: Orientation: alert and oriented x 3 Insight: good insight Judgement: good judgement Results & Data ([facility]) Vital Signs (Past 12 Hours) Vital Signs Temp Pulse Pulse Resp BP Pulse Ox 04/26/21 08:20 99 H 20 91 04/26/21 05:09 36.7 C 04/26/21 00:00 94 H 04/25/21 23:19 36.6 C 94 H 22 136/79 94 04/25/21 22:40 101 H 26 H 132/72 93 PG Care Time/CCT Total # of Minutes Spent Total Time Spent with Patient: Total time spent is greater than 50% in coordination of care (as documented) at patient's floor/unit and/or counseling patient: 35 minutes with > 50% of that time spent assessing the patient, discussing goals of care with the patient and collaborating with IDT Coding Level of Care Code 80332 Subseq Hosp Care Lvl 3 Diagnoses Palliative care encounter Z51.5 AMS (altered mental status) R41.82 Weakness R53.1 Lung abscess J85.2 Pancreatitis K85.90 Pneumonia due to COVID-19 virus U07.1; J12.82 Time Spent (min) 35
--- NOTE | 2021-04-26 15:17 | Hospitalist Progress Note ---
Date of Service April 26, 2021 Assessment & Plan (1) Acute respiratory failure with hypoxia: Plan: due to COVID 19 pneumonia, bilateral infiltrates on CXR Was requiring prone positioning and BiPAP while awake, but then weaned down to wall high flow nasal cannula at 11-15 L on 03/23 However, on 03/24 worsened again was placed back on Vapotherm high flow nasal cannula On 03/25, requiring higher amounts of oxygen at 40 L and up to 80 % FiO2 to maintain pulse ox 90-91% On 03/26 switched to Ventilator HFNC at 60L, 100% FiO2 to keep POx>88%---> continued to decompensate on the morning of 03/27 and was intubated and proned He was not a candidate for ECMO Previously had pneumomediastinum which is now resolved Status post tocilizumab on 03/21 Completed a course of high-dose dexamethasone initially with 10 mg daily and then on 03/28, increased to 20 mg daily x5 days, then 10 mg daily x5 days Now status post tracheostomy on 04/05-now tolerating trach collar continue distally and wean down to 10 L / 70% FiO2, occasionally needs pressure support at night but has not required this since the night of 04/22 Tracheostomy tube was downsized to a size 6 on 04/22 NG tube removed on 04/20 and is tolerating a regular diet after speech therapy evaluation Klonopin q12 is now discontinued as of 04/19, but with some withdrawal symptoms and anxiety on 04/23-added lorazepam 0.5 mg p.o. every 8 hours as needed for anxiety-he has not yet used a dose Oxycodone PRN for opiate withdrawal or pain For insomnia-added magnesium, Ambien as needed which is helping removing fluid with Lasix IV daily doing really well, no ventilator support for over 48 hours (2) Pneumonia due to COVID-19 virus: Plan: completed treatment with dexamethasone received Tocilizumab removed from [facility] pressure isolation 04/15 (3) AMS (altered mental status): Plan: With acute encephalopathy-now resolved since 04/17 he is oriented, following commands, visiting with family, is getting out of bed to chair every day Was secondary to ICU delirium, hypernatremia, fevers, infection, elevated ammonia-all now resolved Also did have a small parenchymal hemorrhage which was stable on repeat imaging Continue treating lung abscess with levofloxacin and metronidazole all sedation is off at this point-using lorazepam as needed (4) Fever: Plan: Now completely resolved Secondary to group C beta strep bacterial pneumonia Blood cultures positive on 04/09 for coagulase-negative Staphylococcus in 1/2 sets-likely contaminant Blood cultures 04/10-negative Also suspected acute sinusitis/large mastoid effusions seen on MRI brain With right lung abscess on CT chest on 04/09--negative AFB, culture no growth to date right pleural effusion - thoracentesis, pleural culture negative Central and arterial lines were removed and replaced with peripheral IVs Dopplers of lower extremities negative for DVT CT chest/abdomen/pelvis significant for lung abscess, necrotizing pancreatitis but lipase normal MRIs of cervical/thoracic/lumbar spine without epidural abscess or discitis MRSA swab remains negative echo: EF 70%, no vegetations, normal valves -Plan to continue Levaquin and Flagyl for lung abscess x4-week course-was started 04/07, last date of treatment will be 05/05/2021 -Will need follow-up chest imaging in 4 to 6 weeks (5) Cerebral parenchymal hemorrhage: Plan: new finding on CT head on 04/13 small, 5mm area right parietal lobe, also with trace subarachnoid hemorrhage left frontal lobe repeat head CT 04/13 and 04/14 with stable hemorrhage neurology consulted, likely bleed in setting of hypertension, Lovenox MRI brain and MRA brain on 04/14: unchanged right 5mm parenchymal hemorrhage, normal angiography no further imaging planned unless mental status changes Has since been restarted on SQ Lovenox (6) Bradycardia: Plan: with sinus terry initially while on BIPAP prior to intubation HR dropped to 20's on 04/12, required atropine, pacer pads on stopped metoprolol due to frequent pauses Has had some significant sinus pauses at times which have now been resolved from a long time (7) SVT (supraventricular tachycardia): Plan: Had SVT to the 200s on the evening of 04/07 with associated hypotension requiring esmolol, amiodarone, adenosine x3, synchronized cardioversion x5 Also had further atrial fibrillation on 04/07 and again on the night of 04/09 Now back in normal sinus rhythm ever since stopped metoprolol 25mg BID due to long sinus pauses Continue to replace electrolytes as needed-giving potassium along with IV Lasix to keep K above 4 (8) Hypertension: Plan: Had significant hypertension which likely led to cerebral parenchymal hemorrhage as above Blood pressures are now much significantly improved since restarting home losartan 100 mg p.o. once daily, continuing amlodipine 10 mg daily Continue diuresing with IV Lasix (9) Hypokalemia: Plan: Improved, continue to replace potassium chloride to keep K above 4 while diuresing with IV Lasix Follow BMP (10) BPH loc w urin obs/LUTS: Plan: Rogers catheter remains in place Diuresing in the setting of anasarca Will need to remove Rogers catheter once he is more mobile (11) Lung abscess: Plan: As above Status post aspiration cultures-no growth Continue levofloxacin, metronidazole for 4 weeks total Chest x-ray 04/23 still with some loculated pleural effusion on the right Follow chest CT in 4 to 6 weeks (12) Pancreatitis: Plan: Visualized on CT of the abdomen with suspected necrotizing pancreatitis Lipase normal, triglycerides improving but were never severely elevated No abdominal pain Continues on low-fat diet (13) Gout: Plan: still c/o pain will give Prednisone 20mg x 1 and Colchicine 1.2mg today, see if he feels any better if he feels better tomorrow will continue the Prednisone for another few days (14) Paroxysmal atrial fibrillation: Plan: Had intermittent rapid atrial fibrillation when he was critically ill and on the ventilator-this has now been resolved for many days No need for long-term anticoagulation at this point especially in the setting of subarachnoid hemorrhage which occurred also during time of critical illness Continue telemetry monitoring (15) Hip pain: Plan: Right hip pain and sciatica developed on 04/23-pain is improved now with repositioning oxycodone Continue to reposition, needs mobilization and PT Give oxycodone as needed (16) Anxiety: Plan: Likely secondary to benzodiazepine withdrawal-his clonazepam was discontinued on 04/19 Started lorazepam 0.5 mg p.o. every 8 hours as needed for anxiety (17) Anemia: Plan: Hemoglobin remains low but stable at 8.7, normocytic Now with developing reactive thrombocytosis with platelets in the 400s-500s Most likely iron deficiency Iron studies show transferrin saturation 17% Start Venofer 300 mg IV daily x3 doses Follow CBC Plan: DVT prophylaxis: SCD, Lovenox Disposition: Continued stay on PCU, prognosis is improving a lot each day, remarkable recovery Originally referred to LTACH, however may not qualify at this point as he is not needing the ventilator for support as much-we will see how he does through the rest of the weekend and may end up referring to acute rehab rather than L TACH. Hopeful for discharge this week CODE STATUS: conditional code Admission and Anticipated Discharge Date Admission Date: March 20, 2021 Subjective patient is doing very well, all weekend off the ventilator, breathing blow by via trach collar swallowing well, taking pills no dyspnea, + cough, no chest pain/pressure, no fever, responding well to Lasix daily main complaint is gouty arthritis attack in right MTP joint he said he did not really respond to the Prednisone 10mg x 5 days asked him about Colchicine, he says he has not responded that great in the past discussed that he is not quite sick enough for LTACH right now but too complex for [employer] working on options Review of Systems Review of Systems: All systems reviewed & are unremarkable except as noted in Subjective Physical Exam Constitutional: well developed, + obese, cooperative and comfortable; no acute distress Neck: trachea midline, no thyromegaly + tracheostomy present Respiratory: normal respiratory effort and + cough; no respiratory distress, no labored breathing and does not use accessory muscles Auscultation: no crackles, no rales, no rhonchi and no wheezes Cardiovascular: RRR, no murmur, no edema Gastrointestinal (Abdomen): normal bowel sounds, soft, nontender, no hepatosplenomegaly Musculoskeletal: no cyanosis or clubbing, extremities motor strength 5/5 Head/Neck/Chest: normocephalic, head atraumatic and neck supple Extremities: extremities normal to inspection and + abnormal strength (generalized weakness, can move all four extremities); no cyanosis, no clubbing and no petechiae Skin: no rashes, warm and dry Neurologic: normal touch/pain/proprioception, CN's II-XI intact bilaterally, moves all extremities and awake; no focal motor deficits Speech / Cognition: normal speech (communicating well with PM valve) Motor/Sensory: no tremor and no fasciculations Psychiatric: A+Ox3, euthymic affect Orientation: alert, oriented to person and oriented to place Results & Data Results & Data ([facility]) Vital Signs (Past 12 Hours) Vital Signs Temp Pulse Pulse Resp BP BP Pulse Ox 04/26/21 11:47 37.1 C 65 65 16 113/68 96 04/26/21 11:11 36.7 C 89 22 138/80 95 04/26/21 08:20 99 H 20 91 04/26/21 05:09 36.7 C Laboratory Results Laboratory Results - last 24 hr 04/25/21 04/25/21 04/26/21 16:31 21:05 07:17 POC Glucose 118 H 112 H 105 H 04/26/21 11:25 POC Glucose 124 H Medications Administered Current Inpatient Medications Acetaminophen (Acetaminophen 325 Mg Tab) 650 mg PO Q4H PRN PRN Reason: Fever/Mild Pain (Pain 1,2,3) Stop: 05/19/21 09:26 Last Admin: 04/25/21 11:15 Dose: 650 mg Documented by: Amlodipine Besylate (Amlodipine Besylate 5 Mg Tab) 10 mg PO QAM MARCIA Stop: 05/23/21 08:59 Last Admin: 04/26/21 08:55 Dose: 10 mg Documented by: Dextrose (Dextrose 50% 50 Ml Syringe) 25 - 50 ml IV UD PRN; Protocol PRN Reason: Hypoglycemia Protocol Stop: 05/12/21 10:44 Enoxaparin Sodium (Enoxaparin Inj 40 Mg/0.4 Ml Syr) 40 mg SQ QAM MARCIA Stop: 05/16/21 09:14 Last Admin: 04/26/21 08:55 Dose: 40 mg Documented by: Glucagon (Glucagon For Inj 1 Mg Vial) 1 mg SQ UD PRN; Protocol PRN Reason: Hypoglycemia Protocol Stop: 05/12/21 10:44 Glucose (Glucose 40% Gel 15 Gm Tube) 15 - 30 gm PO UD PRN; Protocol PRN Reason: Hypoglycemia Protocol Stop: 05/12/21 10:44 Glucose (Glucose 10 Tabs/Tube) 4 - 8 tabs PO UD PRN; Protocol PRN Reason: Hypoglycemia Protocol Stop: 05/12/21 10:44 Furosemide 40 mg/ Syringe 4 mls @ 4 mls/min IV QAM MARCIA Stop: 05/24/21 08:59 Last Admin: 04/26/21 08:57 Dose: 4 mls/min Documented by: Iron Sucrose 300 mg/ Sodium (Chloride) 265 mls @ 176.667 mls/hr IV DAILY MARCIA Stop: 04/27/21 10:29 Last Infusion: 04/26/21 10:57 Dose: Infused Documented by: Insulin Aspart (Insulin Aspart 100 Units/Ml 3 Ml Pen) 0 units SC ACHS [facility] Stop: 05/16/21 15:59 Last Admin: 04/26/21 13:12 Dose: Not Given Documented by: Lansoprazole (Lansoprazole 30 Mg Soltab) 30 mg OG BID [facility] Stop: 05/23/21 20:59 Last Admin: 04/26/21 08:54 Dose: 30 mg Documented by: Levofloxacin (Levofloxacin 750 Mg Tab) [facility] [place] Protocol Stop: 05/04/21 09:01 Last Admin: 04/26/21 08:54 Dose: 750 mg Documented by: Lorazepam (Lorazepam 0.5 Mg Tab) 0.5 mg PO Q8H PRN PRN Reason: Anxiety Stop: 05/23/21 16:35 Losartan Potassium (Losartan Potassium 50 Mg Tab) 100 mg PO [facility] Stop: 05/16/21 08:59 Last Admin: 04/26/21 08:55 Dose: 100 mg Documented by: Magnesium Oxide (Magnesium Oxide 400 Mg Tab) 400 mg PO QPM [facility] Stop: 05/20/21 20:59 Last Admin: 04/25/21 20:59 Dose: 400 mg Documented by: Metronidazole (Metronidazole 500 Mg Tab) 500 mg PO Q8H [facility]; Protocol Stop: 05/05/21 00:01 Last Admin: 04/26/21 08:54 Dose: 500 mg Documented by: Miscellaneous (Carbohydrates For Hypoglycemia ) 15 - 30 gm PO UD PRN PRN Reason: Hypoglycemia Treatment Stop: 05/12/21 10:44 Ondansetron HCl (Ondansetron Inj 2 Mg/Ml 2 Ml Vial) 4 mg IV Q6H PRN PRN Reason: Nausea And Vomiting Stop: 05/25/21 22:32 Last Admin: 04/25/21 22:39 Dose: 4 mg Documented by: Oxycodone HCl (Oxycodone Hcl Ir 5 Mg Tab (Immediate Release)) 5 mg PO Q6H PRN PRN Reason: Moderate Pain (4,5,6) on NRS Stop: 05/03/21 09:26 Last Admin: 04/21/21 11:02 Dose: 5 mg Documented by: Oxycodone HCl (Oxycodone Hcl Ir 5 Mg Tab (Immediate Release)) 10 mg PO Q6H PRN PRN Reason: Severe Pain (7,8,9,10) on NRS Stop: 05/03/21 09:26 Last Admin: 04/26/21 10:08 Dose: 10 mg Documented by: Sennosides (Sennosides 8.8 Mg/5 Ml Udc) 17.6 mg PO BID PRN PRN Reason: CONSTIPATION Stop: 05/06/21 20:59 Zinc Sulfate (Zinc Sulfate 220 Mg Capsule) 220 mg PO QPM MARCIA Stop: 05/20/21 20:59 Last Admin: 04/25/21 21:00 Dose: 220 mg Documented by: Zolpidem Tartrate (Zolpidem Tartrate 5 Mg Tab) 5 mg PO HS PRN PRN Reason: Sleep Stop: 05/20/21 18:17 Last Admin: 04/21/21 20:07 Dose: 5 mg Documented by: PG Care Time/CCT Total # of Minutes Spent Total Time Spent with Patient: Total time spent is greater than 50% in coordination of care (as documented) at patient's floor/unit and/or counseling patient: Coding Level of Care Code 81324 Subseq Hosp Care Lvl 2 Diagnoses Acute respiratory failure with hypoxia J96.01 Pneumonia due to COVID-19 virus U07.1; J12.82 AMS (altered mental status) R41.82 Fever R50.9 Cerebral parenchymal hemorrhage I61.9 Bradycardia R00.1 SVT (supraventricular tachycardia) I47.1 Hypertension I10 Hypokalemia E87.6 BPH loc w urin obs/LUTS N40.1 Lung abscess J85.2 Pancreatitis K85.90 Gout M10.9 Paroxysmal atrial fibrillation I48.0 Hip pain M25.559 Anxiety F41.9 Anemia D64.9
[2021-04-26] MEDS ORDERED: COLCHICINE 0.6 MG TAB PO ONE (15:27)
[2021-04-26] MEDS ORDERED: predniSONE 20 MG TAB PO STA (15:27)
[2021-04-26] MEDS: MAGNESIUM OXIDE 400 MG TAB PO SCH (20:23)
[2021-04-26] MEDS: ZINC SULFATE 220 MG CAPSULE PO SCH (20:23)
[2021-04-27] MEDS: metroNIDAZOLE 500 MG TAB PO SCH ×4 (00:08→23:34)
[2021-04-27] MEDS: INSULIN ASPART 100 UNITS/ML 3 ML PEN SC SCH ×4 (08:12→20:53)
[2021-04-27] MEDS: ENOXAPARIN INJ 40 MG/0.4 ML SYR SQ SCH (08:13)
[2021-04-27] MEDS: FUROSEMIDE 40 MG in SYRINGE 0 ML IV SCH (08:13)
[2021-04-27] MEDS: LANSOPRAZOLE 30 MG SOLTAB OG SCH ×2 (08:14→20:52)
[2021-04-27] MEDS: levoFLOXacin 750 MG TAB PO SCH (08:14)
[2021-04-27] MEDS: LOSARTAN POTASSIUM 50 MG TAB PO SCH (08:14)
[2021-04-27] MEDS: amLODIPine BESYLATE 5 MG TAB PO SCH (08:14)
[2021-04-27] MEDS: IRON SUCROSE 300 MG in SODIUM CHLORIDE 0.9% 250 ML IV SCH (08:15)
[2021-04-27] MEDS ORDERED: predniSONE 20 MG TAB PO STA (15:19)
--- NOTE | 2021-04-27 15:20 | Hospitalist Progress Note ---
Date of Service April 27, 2021 Assessment & Plan (1) Acute respiratory failure with hypoxia: Plan: due to COVID 19 pneumonia, bilateral infiltrates on CXR Was requiring prone positioning and BiPAP while awake, but then weaned down to wall high flow nasal cannula at 11-15 L on 03/23 However, on 03/24 worsened again was placed back on Vapotherm high flow nasal cannula On 03/25, requiring higher amounts of oxygen at 40 L and up to 80 % FiO2 to maintain pulse ox 90-91% On 03/26 switched to Ventilator HFNC at 60L, 100% FiO2 to keep POx>88%---> continued to decompensate on the morning of 03/27 and was intubated and proned He was not a candidate for ECMO Previously had pneumomediastinum which is now resolved Status post tocilizumab on 03/21 Completed a course of high-dose dexamethasone initially with 10 mg daily and then on 03/28, increased to 20 mg daily x5 days, then 10 mg daily x5 days Now status post tracheostomy on 04/05-now tolerating trach collar continue distally and wean down to 10 L / 70% FiO2, occasionally needs pressure support at night but has not required this since the night of 04/22 Tracheostomy tube was downsized to a size 6 on 04/22 NG tube removed on 04/20 and is tolerating a regular diet after speech therapy evaluation Klonopin q12 is now discontinued as of 04/19, but with some withdrawal symptoms and anxiety on 04/23-added lorazepam 0.5 mg p.o. every 8 hours as needed for anxiety-he has not yet used a dose Oxycodone PRN for opiate withdrawal or pain For insomnia-added magnesium, Ambien as needed which is helping removing fluid with Lasix IV daily doing really well, no ventilator support for over 72 hours (2) Pneumonia due to COVID-19 virus: Plan: completed treatment with dexamethasone received Tocilizumab removed from [facility] pressure isolation 04/15 (3) AMS (altered mental status): Plan: With acute encephalopathy-now resolved since 04/17 he is oriented, following commands, visiting with family, is getting out of bed to chair every day Was secondary to ICU delirium, hypernatremia, fevers, infection, elevated ammonia-all now resolved Also did have a small parenchymal hemorrhage which was stable on repeat imaging Continue treating lung abscess with levofloxacin and metronidazole all sedation is off at this point-using lorazepam as needed (4) Fever: Plan: Now completely resolved Secondary to group C beta strep bacterial pneumonia Blood cultures positive on 04/09 for coagulase-negative Staphylococcus in 1/2 sets-likely contaminant Blood cultures 04/10-negative Also suspected acute sinusitis/large mastoid effusions seen on MRI brain With right lung abscess on CT chest on 04/09--negative AFB, culture no growth to date right pleural effusion - thoracentesis, pleural culture negative Central and arterial lines were removed and replaced with peripheral IVs Dopplers of lower extremities negative for DVT CT chest/abdomen/pelvis significant for lung abscess, necrotizing pancreatitis but lipase normal MRIs of cervical/thoracic/lumbar spine without epidural abscess or discitis MRSA swab remains negative echo: EF 70%, no vegetations, normal valves -Plan to continue Levaquin and Flagyl for lung abscess x4-week course-was started 04/07, last date of treatment will be 05/05/2021 -Will need follow-up chest imaging in 4 to 6 weeks (5) Cerebral parenchymal hemorrhage: Plan: new finding on CT head on 04/13 small, 5mm area right parietal lobe, also with trace subarachnoid hemorrhage left frontal lobe repeat head CT 04/13 and 04/14 with stable hemorrhage neurology consulted, likely bleed in setting of hypertension, Lovenox MRI brain and MRA brain on 04/14: unchanged right 5mm parenchymal hemorrhage, normal angiography no further imaging planned unless mental status changes Has since been restarted on SQ Lovenox (6) Bradycardia: Plan: with sinus terry initially while on BIPAP prior to intubation HR dropped to 20's on 04/12, required atropine, pacer pads on stopped metoprolol due to frequent pauses Has had some significant sinus pauses at times which have now been resolved from a long time (7) SVT (supraventricular tachycardia): Plan: Had SVT to the 200s on the evening of 04/07 with associated hypotension requiring esmolol, amiodarone, adenosine x3, synchronized cardioversion x5 Also had further atrial fibrillation on 04/07 and again on the night of 04/09 Now back in normal sinus rhythm ever since stopped metoprolol 25mg BID due to long sinus pauses Continue to replace electrolytes as needed-giving potassium along with IV Lasix to keep K above 4 (8) Hypertension: Plan: Had significant hypertension which likely led to cerebral parenchymal hemorrhage as above Blood pressures are now much significantly improved since restarting home losartan 100 mg p.o. once daily, continuing amlodipine 10 mg daily Continue diuresing with IV Lasix (9) Hypokalemia: Plan: Improved, continue to replace potassium chloride to keep K above 4 while diuresing with IV Lasix Follow BMP (10) BPH loc w urin obs/LUTS: Plan: Rogers catheter remains in place Diuresing in the setting of anasarca Will need to remove Rogers catheter once he is more mobile (11) Lung abscess: Plan: As above Status post aspiration cultures-no growth Continue levofloxacin, metronidazole for 4 weeks total Chest x-ray 04/23 still with some loculated pleural effusion on the right Follow chest CT in 4 to 6 weeks (12) Pancreatitis: Plan: Visualized on CT of the abdomen with suspected necrotizing pancreatitis Lipase normal, triglycerides improving but were never severely elevated No abdominal pain Continues on low-fat diet (13) Gout: Plan: still c/o pain responded well to Prednisone 20mg x 1 and Colchicine 1.2mg on 04/26 continue the Prednisone for another few days (14) Paroxysmal atrial fibrillation: Plan: Had intermittent rapid atrial fibrillation when he was critically ill and on the ventilator-this has now been resolved for many days No need for long-term anticoagulation at this point especially in the setting of subarachnoid hemorrhage which occurred also during time of critical illness Continue telemetry monitoring (15) Hip pain: Plan: Right hip pain and sciatica developed on 04/23-pain is improved now with repositioning oxycodone Continue to reposition, needs mobilization and PT Give oxycodone as needed (16) Anxiety: Plan: Likely secondary to benzodiazepine withdrawal-his clonazepam was discontinued on 04/19 Started lorazepam 0.5 mg p.o. every 8 hours as needed for anxiety (17) Anemia: Plan: Hemoglobin remains low but stable at 8.7, normocytic Now with developing reactive thrombocytosis with platelets in the 400s-500s Most likely iron deficiency Iron studies show transferrin saturation 17% Start Venofer 300 mg IV daily x3 doses Follow CBC Plan: DVT prophylaxis: SCD, Lovenox Disposition: Continued stay on PCU, prognosis is improving a lot each day, remarkable recovery CM looking into swing bed options for rehab while on tracheostomy CODE STATUS: conditional code Admission and Anticipated Discharge Date Admission Date: March 20, 2021 Subjective patient is having a good day says his right MTP joint is a lot better after colchicine and Prednisone 20mg will repeat Prednisone today he is asking if his can come in to trim his parham, clip his nails, I will see what I can do he is taking pills, eating okay breathing fine on trach collar, producing sputum Review of Systems Review of Systems: All systems reviewed & are unremarkable except as noted in Subjective Physical Exam Constitutional: well developed, + obese, cooperative and comfortable; no acute distress Neck: trachea midline, no thyromegaly + tracheostomy present Respiratory: normal respiratory effort and + cough; no respiratory distress, no labored breathing and does not use accessory muscles Auscultation: no c rackles, no rales, no rhonchi and no wheezes Cardiovascular: RRR, no murmur, no edema Gastrointestinal (Abdomen): normal bowel sounds, soft, nontender, no hepatosplenomegaly Musculoskeletal: no cyanosis or clubbing, extremities motor strength 5/5 Head/Neck/Chest: normocephalic, head atraumatic and neck supple Extremities: extremities normal to inspection and + abnormal strength (generalized weakness, can move all four extremities); no cyanosis, no clubbing and no petechiae Skin: no rashes, warm and dry Neurologic: normal touch/pain/proprioception, CN's II-XI intact bilaterally, moves all extremities and awake; no focal motor deficits Speech / Cognition: normal speech (communicating well with PM valve) Motor/Sensory: no tremor and no fasciculations Psychiatric: A+Ox3, euthymic affect Results & Data Results & Data ([facility]) Vital Signs (Past 12 Hours) Vital Signs Temp Pulse Pulse Resp BP BP BP 04/27/21 13:55 04/27/21 11:42 37.0 C 93 H 23 142/70 H 04/27/21 10:45 37 C 98 H 27 H 132/69 04/27/21 04:53 87 25 H 152/74 H Pulse Ox 04/27/21 13:55 94 04/27/21 11:42 93 04/27/21 10:45 92 04/27/21 04:53 88 L Laboratory Results Laboratory Results - last 24 hr 04/27/21 04/27/21 04/27/21 07:26 10:55 15:56 POC Glucose 108 H 126 H 151 H 04/27/21 19:59 POC Glucose 170 H Medications Administered Current Inpatient Medications Acetaminophen (Acetaminophen 325 Mg Tab) 650 mg PO Q4H PRN PRN Reason: Fever/Mild Pain (Pain 1,2,3) Stop: 05/19/21 09:26 Last Admin: 04/25/21 11:15 Dose: 650 mg Documented by: Amlodipine Besylate (Amlodipine Besylate 5 Mg Tab) 10 mg PO QAM MARCIA Stop: 05/23/21 08:59 Last Admin: 04/27/21 08:14 Dose: 10 mg Documented by: Dextrose (Dextrose 50% 50 Ml Syringe) 25 - 50 ml IV UD PRN; Protocol PRN Reason: Hypoglycemia Protocol Stop: 05/12/21 10:44 Enoxaparin Sodium (Enoxaparin Inj 40 Mg/0.4 Ml Syr) 40 mg SQ QAM [facility] Stop: 05/16/21 09:14 Last Admin: 04/27/21 08:13 Dose: 40 mg Documented by: Glucagon (Glucagon For Inj 1 Mg Vial) 1 mg SQ UD PRN; Protocol PRN Reason: Hypoglycemia Protocol Stop: 05/12/21 10:44 Glucose (Glucose 40% Gel 15 Gm Tube) 15 - 30 gm PO UD PRN; Protocol PRN Reason: Hypoglycemia Protocol Stop: 05/12/21 10:44 Glucose (Glucose 10 Tabs/Tube) 4 - 8 tabs PO UD PRN; Protocol PRN Reason: Hypoglycemia Protocol Stop: 05/12/21 10:44 Furosemide 40 mg/ Syringe 4 mls @ 4 mls/min IV QAM MARCIA Stop: 05/24/21 08:59 Last Admin: 04/27/21 08:13 Dose: 4 mls/min Documented by: Insulin Aspart (Insulin Aspart 100 Units/Ml 3 Ml Pen) 0 units SC ACHS MARCIA Stop: 05/16/21 15:59 Last Admin: 04/27/21 20:53 Dose: 2 units Documented by: Lansoprazole (Lansoprazole 30 Mg Soltab) 30 mg OG BID MARCIA Stop: 05/23/21 20:59 Last Admin: 04/27/21 20:52 Dose: 30 mg Documented by: Levofloxacin (Levofloxacin 750 Mg Tab) 750 mg PO QAM MARCIA; Protocol Stop: 05/04/21 09:01 Last Admin: 04/27/21 08:14 Dose: 750 mg Documented by: Lorazepam (Lorazepam 0.5 Mg Tab) 0.5 mg PO Q8H PRN PRN Reason: Anxiety Stop: 05/23/21 16:35 Losartan Potassium (Losartan Potassium 50 Mg Tab) 100 mg PO QAM [facility] Stop: 05/16/21 08:59 Last Admin: 04/27/21 08:14 Dose: 100 mg Documented by: Magnesium Oxide (Magnesium Oxide 400 Mg Tab) 400 mg PO QPM [facility] Stop: 05/20/21 20:59 Last Admin: 04/27/21 20:53 Dose: 400 mg Documented by: Metronidazole (Metronidazole 500 Mg Tab) 500 mg PO Q8H MARCIA; Protocol Stop: 05/05/21 00:01 Last Admin: 04/27/21 16:32 Dose: 500 mg Documented by: Miscellaneous (Carbohydrates For Hypoglycemia ) 15 - 30 gm PO UD PRN PRN Reason: Hypoglycemia Treatment Stop: 05/12/21 10:44 Ondansetron HCl (Ondansetron Inj 2 Mg/Ml 2 Ml Vial) 4 mg IV Q6H PRN PRN Reason: Nausea And Vomiting Stop: 05/25/21 22:32 Last Admin: 04/25/21 22:39 Dose: 4 mg Documented by: Oxycodone HCl (Oxycodone Hcl Ir 5 Mg Tab (Immediate Release)) 5 mg PO Q6H PRN PRN Reason: Moderate Pain (4,5,6) on NRS Stop: 05/03/21 09:26 Last Admin: 04/21/21 11:02 Dose: 5 mg Documented by: Oxycodone HCl (Oxycodone Hcl Ir 5 Mg Tab (Immediate Release)) 10 mg PO Q6H PRN PRN Reason: Severe Pain (7,8,9,10) on NRS Stop: 05/03/21 09:26 Last Admin: 04/26/21 16:01 Dose: 10 mg Documented by: Sennosides (Sennosides 8.8 Mg/5 Ml Udc) 17.6 mg PO BID PRN PRN Reason: CONSTIPATION Stop: 05/06/21 20:59 Zinc Sulfate (Zinc Sulfate 220 Mg Capsule) 220 mg PO QPM MARCIA Stop: 05/20/21 20:59 Last Admin: 09/28/21 20:52 Dose: 220 mg Documented by: Zolpidem Tartrate (Zolpidem Tartrate 5 Mg Tab) 5 mg PO HS PRN PRN Reason: Sleep Stop: 05/20/21 18:17 Last Admin: 04/27/21 21:02 Dose: 5 mg Documented by: PG Care Time/CCT Total # of Minutes Spent Total Time Spent with Patient: Total time spent is greater than 50% in coordination of care (as documented) at patient's floor/unit and/or counseling patient: Coding Level of Care Code 13448 Subseq Hosp Care Lvl 2 Diagnoses Acute respiratory failure with hypoxia J96.01 Pneumonia due to COVID-19 virus U07.1; J12.82 AMS (altered mental status) R41.82 Fever R50.9 Cerebral parenchymal hemorrhage I61.9 Bradycardia R00.1 SVT (supraventricular tachycardia) I47.1 Hypertension I10 Hypokalemia E87.6 BPH loc w urin obs/LUTS N40.1 Lung abscess J85.2 Pancreatitis K85.90 Gout M10.9 Paroxysmal atrial fibrillation I48.0 Hip pain M25.559 Anxiety F41.9 Anemia D64.9
[2021-04-27] MEDS: ZINC SULFATE 220 MG CAPSULE PO SCH (20:52)
[2021-04-27] MEDS: MAGNESIUM OXIDE 400 MG TAB PO SCH (20:53)
[2021-04-27] MEDS: ZOLPIDEM TARTRATE 5 MG TAB PO PRN (21:02)
[2021-04-27] MEDS: oxyCODONE HCL IR 5 MG TAB (IMMEDIATE RELEASE) PO PRN (23:48)
[2021-04-28] MEDS: levoFLOXacin 750 MG TAB PO SCH (08:02)
[2021-04-28] MEDS: amLODIPine BESYLATE 5 MG TAB PO SCH (08:03)
[2021-04-28] MEDS: LOSARTAN POTASSIUM 50 MG TAB PO SCH (08:03)
[2021-04-28] MEDS: metroNIDAZOLE 500 MG TAB PO SCH ×3 (08:03→23:54)
[2021-04-28] MEDS: ENOXAPARIN INJ 40 MG/0.4 ML SYR SQ SCH (08:03)
[2021-04-28] MEDS: INSULIN ASPART 100 UNITS/ML 3 ML PEN SC SCH ×4 (08:05→20:52)
[2021-04-28] MEDS: FUROSEMIDE 40 MG in SYRINGE 0 ML IV SCH (08:06)
[2021-04-28] MEDS: oxyCODONE HCL IR 5 MG TAB (IMMEDIATE RELEASE) PO PRN ×2 (12:54→21:34)
[2021-04-28] MEDS: LANSOPRAZOLE 30 MG SOLTAB OG SCH (13:06)
[2021-04-28] MEDS ORDERED: SENNA 8.6 MG TAB PO PRN (15:15)
--- NOTE | 2021-04-28 15:48 | Hospitalist Progress Note ---
Date of Service April 28, 2021 Assessment & Plan (1) Acute respiratory failure with hypoxia: Plan: due to COVID 19 pneumonia, bilateral infiltrates on CXR Was requiring prone positioning and BiPAP while awake, but then weaned down to wall high flow nasal cannula at 11-15 L on 03/23 However, on 03/24 worsened again was placed back on Vapotherm high flow nasal cannula On 03/25, requiring higher amounts of oxygen at 40 L and up to 80 % FiO2 to maintain pulse ox 90-91% On 03/26 switched to Ventilator HFNC at 60L, 100% FiO2 to keep POx>88%---> continued to decompensate on the morning of 03/27 and was intubated and proned He was not a candidate for ECMO Previously had pneumomediastinum which is now resolved Status post tocilizumab on 03/21 Completed a course of high-dose dexamethasone initially with 10 mg daily and then on 03/28, increased to 20 mg daily x5 days, then 10 mg daily x5 days Now status post tracheostomy on 04/05-now tolerating trach collar Tracheostomy tube was downsized to a size 6 on 04/22 NG tube removed on 04/20 and is tolerating a regular diet after speech therapy evaluation Klonopin q12 is now discontinued as of 04/19, but with some withdrawal symptoms and anxiety on 04/23-added lorazepam 0.5 mg p.o. every 8 hours as needed for anxiety-he has not yet used a dose Oxycodone PRN for opiate withdrawal or pain For insomnia-added magnesium, Ambien as needed which is helping removing fluid with Lasix IV daily doing really well, no ventilator support for over 4 days (2) Pneumonia due to COVID-19 virus: Plan: completed treatment with dexamethasone received Tocilizumab removed from neg pressure isolation 04/15 (3) AMS (altered mental status): Plan: With acute encephalopathy-now resolved since 04/17 he is oriented, following commands, visiting with family, is getting out of bed to chair every day Was secondary to ICU delirium, hypernatremia, fevers, infection, elevated ammonia-all now resolved Also did have a small parenchymal hemorrhage which was stable on repeat imaging Continue treating lung abscess with levofloxacin and metronidazole all sedation is off at this point-using lorazepam as needed (4) Fever: Plan: Now completely resolved Secondary to group C beta strep bacterial pneumonia Blood cultures positive on 04/09 for coagulase-negative Staphylococcus in 1/2 sets-likely contaminant Blood cultures 04/10-negative Also suspected acute sinusitis/large mastoid effusions seen on MRI brain With right lung abscess on CT chest on 04/09--negative AFB, culture no growth to date right pleural effusion - thoracentesis, pleural culture negative Central and arterial lines were removed and replaced with peripheral IVs Dopplers of lower extremities negative for DVT CT chest/abdomen/pelvis significant for lung abscess, necrotizing pancreatitis but lipase normal MRIs of cervical/thoracic/lumbar spine without epidural abscess or discitis MRSA swab remains negative echo: EF 70%, no vegetations, normal valves -Plan to continue Levaquin and Flagyl for lung abscess x4-week course-was started 04/07, last date of treatment will be 05/05/2021 -Will need follow-up chest imaging in 4 to 6 weeks (5) Cerebral parenchymal hemorrhage: Plan: new finding on CT head on 04/13 small, 5mm area right parietal lobe, also with trace subarachnoid hemorrhage left frontal lobe repeat head CT 04/13 and 04/14 with stable hemorrhage neurology consulted, likely bleed in setting of hypertension, Lovenox MRI brain and MRA brain on 04/14: unchanged right 5mm parenchymal hemorrhage, normal angiography no further imaging planned unless mental status changes Has since been restarted on SQ Lovenox (6) Bradycardia: Plan: with sinus terry initially while on BIPAP prior to intubation HR dropped to 20's on 04/12, required atropine, pacer pads on stopped metoprolol due to frequent pauses Has had some significant sinus pauses at times which have now been resolved from a long time (7) SVT (supraventricular tachycardia): Plan: Had SVT to the 200s on the evening of 04/07 with associated hypotension requiring esmolol, amiodarone, adenosine x3, synchronized cardioversion x5 Also had further atrial fibrillation on 04/07 and again on the night of 04/09 Now back in normal sinus rhythm ever since stopped metoprolol 25mg BID due to long sinus pauses Continue to replace electrolytes as needed-giving potassium along with IV Lasix to keep K above 4 (8) Hypertension: Plan: Had significant hypertension which likely led to cerebral parenchymal hemorrhage as above Blood pressures are now much significantly improved since restarting home losartan 100 mg p.o. once daily, continuing amlodipine 10 mg daily Continue diuresing with IV Lasix (9) Hypokalemia: Plan: Improved, continue to replace potassium chloride to keep K above 4 while diuresing with IV Lasix Follow BMP (10) BPH loc w urin obs/LUTS: Plan: Rogers catheter remains in place Diuresing in the setting of anasarca Will need to remove Rogers catheter once he is more mobile (11) Lung abscess: Plan: As above Status post aspiration cultures-no growth Continue levofloxacin, metronidazole for 4 weeks total Chest x-ray 04/23 still with some loculated pleural effusion on the right Follow chest CT in 4 to 6 weeks (12) Pancreatitis: Plan: Visualized on CT of the abdomen with suspected necrotizing pancreatitis Lipase normal, triglycerides improving but were never severely elevated No abdominal pain Continues on low-fat diet (13) Gout: Plan: still c/o pain responded well to Prednisone 20mg x 1 and Colchicine 1.2mg on 04/26 continue the Prednisone for another few days (14) Paroxysmal atrial fibrillation: Plan: Had intermittent rapid atrial fibrillation when he was critically ill and on the ventilator-this has now been resolved for many days No need for long-term anticoagulation at this point especially in the setting of subarachnoid hemorrhage which occurred also during time of critical illness Continue telemetry monitoring (15) Hip pain: Plan: Right hip pain and sciatica developed on 04/23-pain is improved now with repositioning oxycodone Continue to reposition, needs mobilization and PT Give oxycodone as needed (16) Anxiety: Plan: Likely secondary to benzodiazepine withdrawal-his clonazepam was discontinued on 04/19 Started lorazepam 0.5 mg p.o. every 8 hours as needed for anxiety (17) Anemia: Plan: Hemoglobin remains low but stable at 8.7, normocytic Now with developing reactive thrombocytosis with platelets in the 400s-500s Most likely iron deficiency Iron studies show transferrin saturation 17% Start Venofer 300 mg IV daily x3 doses Follow CBC Plan: DVT prophylaxis: SCD, Lovenox Disposition: Continued stay on PCU, prognosis is improving a lot each day, remarkable recovery CM looking into swing bed options for rehab while on tracheostomy CODE STATUS: conditional code Admission and Anticipated Discharge Date Admission Date: March 20, 2021 Subjective patient doing well today, sitting in recliner still c/o pain in right MTP joint, although less intense asked him about allopurinol "allergy" listed, he said that his liver enzymes went up after starting it got permission for his to come in and see him again, trim his parham, clean him up he is eating and swallowing well, says that dry foods are difficult he is starting to feed himself more, more strength distal to elbows and distal to knees breathing comfortably Review of Systems Review of Systems: All systems reviewed & are unremarkable except as noted in Subjective Respiratory: + cough; no dyspnea and no dyspnea on exertion Cardiovascular: + edema; no chest pain Musculoskeletal: + muscle weakness and + muscle atrophy; no back pain and no n zuri pain Physical Exam Constitutional: well developed, + obese, cooperative and comfortable; no acute distress Neck: trachea midline, no thyromegaly + tracheostomy present Respiratory: normal respiratory effort and + cough; no respiratory distress, no labored breathing and does not use accessory muscles Auscultation: no crackles, no rales, no rhonchi and no wheezes Cardiovascular: RRR, no murmur, no edema Gastrointestinal (Abdomen): normal bowel sounds, soft, nontender, no hepatosplenomegaly Musculoskeletal: Head/Neck/Chest: normocephalic, head atraumatic and neck supple Extremities: extremities normal to inspection and + abnormal strength (generalized weakness, can move all four extremities); no cyanosis, no clubbing and no petechiae Skin: no rashes, warm and dry Neurologic: normal touch/pain/proprioception, CN's II-XI intact bilaterally, moves all extremities and awake; no focal motor deficits Speech / Cognition: normal speech (communicating well with PM valve) Motor/Sensory: no tremor and no fasciculations Psychiatric: A+Ox3, euthymic affect Results & Data Results & Data ([facility]) Vital Signs (Past 12 Hours) Vital Signs Temp Pulse Pulse Resp BP BP Pulse Ox 04/28/21 11:57 36.6 C 93 H 22 150/79 H 92 04/28/21 08:03 93 H 24 171/88 H 88 L 04/28/21 08:00 36.9 C 04/28/21 04:24 36.9 C 88 20 142/80 H 92 Laboratory Results Laboratory Results - last 24 hr 04/27/21 04/27/21 04/28/21 15:56 19:59 07:34 POC Glucose 151 H 170 H 100 H 04/28/21 11:43 POC Glucose 105 H Medications Administered Current Inpatient Medications Acetaminophen (Acetaminophen 325 Mg Tab) 650 mg PO Q4H PRN PRN Reason: Fever/Mild Pain (Pain 1,2,3) Stop: 05/19/21 09:26 Last Admin: 04/25/21 11:15 Dose: 650 mg Documented by: Amlodipine Besylate (Amlodipine Besylate 5 Mg Tab) 10 mg PO QAM [facility] Stop: 05/23/21 08:59 Last Admin: 04/28/21 08:03 Dose: 10 mg Documented by: Dextrose (Dextrose 50% 50 Ml Syringe) 25 - 50 ml IV UD PRN; Protocol PRN Reason: Hypoglycemia Protocol Stop: 05/12/21 10:44 Enoxaparin Sodium (Enoxaparin Inj 40 Mg/0.4 Ml Syr) 40 mg SQ QAM [facility] Stop: 05/16/21 09:14 Last Admin: 04/28/21 08:03 Dose: 40 mg Documented by: Glucagon (Glucagon For Inj 1 Mg Vial) 1 mg SQ UD PRN; Protocol PRN Reason: Hypoglycemia Protocol Stop: 05/12/21 10:44 Glucose (Glucose 40% Gel 15 Gm Tube) 15 - 30 gm PO UD PRN; Protocol PRN Reason: Hypoglycemia Protocol Stop: 05/12/21 10:44 Glucose (Glucose 10 Tabs/Tube) 4 - 8 tabs PO UD PRN; Protocol PRN Reason: Hypoglycemia Protocol Stop: 05/12/21 10:44 Furosemide 40 mg/ Syringe 4 mls @ 4 mls/min IV QAM [facility] Stop: 05/24/21 08:59 Last Admin: 04/28/21 08:06 Dose: 4 mls/min Documented by: Insulin Aspart (Insulin Aspart 100 Units/Ml 3 Ml Pen) 0 units SC ACHS [facility] Stop: 05/16/21 15:59 Last Admin: 04/28/21 12:13 Dose: Not Given Documented by: Levofloxacin (Levofloxacin 750 Mg Tab) 750 mg PO QAM [facility]; Protocol Stop: 05/04/21 09:01 Last Admin: 04/28/21 08:02 Dose: 750 mg Documented by: Lorazepam (Lorazepam 0.5 Mg Tab) 0.5 mg PO Q8H PRN PRN Reason: Anxiety Stop: 05/23/21 16:35 Losartan Potassium (Losartan Potassium 50 Mg Tab) 100 mg PO QAM [facility] Stop: 05/16/21 08:59 Last Admin: 04/28/21 08:03 Dose: 100 mg Documented by: Magnesium Oxide (Magnesium Oxide 400 Mg Tab) 400 mg PO QPM [facility] Stop: 05/20/21 20:59 Last Admin: 04/27/21 20:53 Dose: 400 mg Documented by: Metronidazole (Metronidazole 500 Mg Tab) 500 mg PO Q8H [facility]IA; Protocol Stop: 05/05/21 00:01 Last Admin: 04/28/21 08:03 Dose: 500 mg Documented by: Miscellaneous (Carbohydrates For Hypoglycemia ) 15 - 30 gm PO UD PRN PRN Reason: Hypoglycemia Treatment Stop: 05/12/21 10:44 Ondansetron HCl (Ondansetron Inj 2 Mg/Ml 2 Ml Vial) 4 mg IV Q6H PRN PRN Reason: Nausea And Vomiting Stop: 05/25/21 22:32 Last Admin: 04/25/21 22:39 Dose: 4 mg Documented by: Oxycodone HCl (Oxycodone Hcl Ir 5 Mg Tab (Immediate Release)) 5 mg PO Q6H PRN PRN Reason: Moderate Pain (4,5,6) on NRS Stop: 05/03/21 09:26 Last Admin: 04/21/21 11:02 Dose: 5 mg Documented by: Oxycodone HCl (Oxycodone Hcl Ir 5 Mg Tab (Immediate Release)) 10 mg PO Q6H PRN PRN Reason: Severe Pain (7,8,9,10) on NRS Stop: 05/03/21 09:26 Last Admin: 04/28/21 12:54 Dose: 10 mg Documented by: Pantoprazole Sodium (Pantoprazole 40 Mg Tab) 40 mg PO BID MARCIA Stop: 05/28/21 20:59 Prednisone (Prednisone 10 Mg Tablet) 10 mg PO NOW STA Stop: 04/28/21 15:48 Sennosides (Senna 8.6 Mg Tab) 17.2 mg PO DAILY PRN PRN Reason: CONSTIPATION Stop: 05/28/21 15:14 Zinc Sulfate (Zinc Sulfate 220 Mg Capsule) 220 mg PO QPM [facility]IA Stop: 05/20/21 20:59 Last Admin: 04/27/21 20:52 Dose: 220 mg Documented by: Zolpidem Tartrate (Zolpidem Tartrate 5 Mg Tab) 5 mg PO HS PRN PRN Reason: Sleep Stop: 05/20/21 18:17 Last Admin: 04/27/21 21:02 Dose: 5 mg Documented by: PG Care Time/CCT Total # of Minutes Spent Total Time Spent with Patient: Total time spent is greater than 50% in coordination of care (as documented) at patient's floor/unit and/or counseling patient: Coding Level of Care Code 39590 Subseq Hosp Care Lvl 2 Diagnoses Acute respiratory failure with hypoxia J96.01 Pneumonia due to COVID-19 virus U07.1; J12.82 AMS (altered mental status) R41.82 Fever R50.9 Cerebral parenchymal hemorrhage I61.9 Bradycardia R00.1 SVT (supraventricular tachycardia) I47.1 Hypertension I10 Hypokalemia E87.6 BPH loc w urin obs/LUTS N40.1 Lung abscess J85.2 Pancreatitis K85.90 Gout M10.9 Paroxysmal atrial fibrillation I48.0 Hip pain M25.559 Anxiety F41.9 Anemia D64.9
[2021-04-28] MEDS ORDERED: predniSONE 10 MG TABLET PO ONE (16:00)
[2021-04-28] MEDS: PANTOprazole 40 MG TAB PO SCH (20:50)
[2021-04-28] MEDS: MAGNESIUM OXIDE 400 MG TAB PO SCH (20:50)
[2021-04-28] MEDS: ZINC SULFATE 220 MG CAPSULE PO SCH (20:51)
[2021-04-28] MEDS: ZOLPIDEM TARTRATE 5 MG TAB PO PRN (21:34)
[2021-04-29 04:57] LABS: Hematocrit (blood only) 28.6 % (42-52); Hemoglobin 9.2 g/dL (14.0-18.0); Mean Corpuscular Hemoglobin 29.3 pg (25-34); Mean Corpuscular Hgb Conc 32.2 g/dL (32-36); Mean Corpuscular Volume 91.1 fL (80-100); Mean Platelet Volume 8.5 fL (7.4-10.4); Platelet Count 406 K/uL (130-400); RDW Coefficient of Variation 14.4 % (11.5-14.5); RDW Standard Deviation 47.5 fL (36.4-46.3); Red Blood Count 3.14 M/uL (4.7-6.1); White Blood Count 11.11 K/uL (4.8-10.8)
[2021-04-29 05:16] LABS: Est GFR (African American) 114.9 ml/min; Est GFR (Non-African American) 99.2 ml/min; Potassium 3.8 mmol/L (3.5-5.1)
[2021-04-29 05:17] LABS: BUN Creatinine Ratio 27.6 (10-20); Calcium 8.3 mg/dl (8.5-10.1); Creatinine Clr Calc Pharmacy 127.7 ml/min; Magnesium 2.1 mg/dl (1.8-2.4)
[2021-04-29] MEDS: metroNIDAZOLE 500 MG TAB PO SCH (08:59)
[2021-04-29] MEDS: FUROSEMIDE 40 MG in SYRINGE 0 ML IV SCH (08:59)
[2021-04-29] MEDS: ENOXAPARIN INJ 40 MG/0.4 ML SYR SQ SCH (08:59)
[2021-04-29] MEDS: levoFLOXacin 750 MG TAB PO SCH (09:00)
[2021-04-29] MEDS: amLODIPine BESYLATE 5 MG TAB PO SCH (09:00)
[2021-04-29] MEDS: LOSARTAN POTASSIUM 50 MG TAB PO SCH (09:00)
[2021-04-29] MEDS: INSULIN ASPART 100 UNITS/ML 3 ML PEN SC SCH ×2 (09:09→12:51)
[2021-04-29] MEDS: ACETAMINOPHEN 325 MG TAB PO PRN (09:17)
[2021-04-29] MEDS: PANTOprazole 40 MG TAB PO SCH (09:41)
--- NOTE | 2021-04-29 13:22 | Discharge Summary ---
Date of Service April 29, 2021 Admission HPI Per Admitting Provider Gavin Awan is a 61-year-old male with a past medical history of BPH/LUTS sensorineural hearing loss, uvular hypertrophy, and gastric outlet obstruction who presents with shortness of breath and hypoxia and who was admitted for acute hypoxic respiratory failure 2/2 Covid pneumonia. Symptoms since ~Mar 09 acutely worsened yesteday. Fevers, chills, muscle aches since the but worsened cough productive for clear/thick white sputum, worsened fevers, increased shortness of breath and fatigue x24 hours. is sick with COVID in the COVID wing. He was not vaccinated against COVID19. Has not taken his medications today, other medications as noted below. No leg swelling. Celine is nausea/vomiting last few days, poor p.o. intake. Denies diarrhea/constipation MedHx: HTN, gout treated PRN, LUTS (up multiple times per night to pee). No asthma. No hx of immunosuppression. no history of heart disease or blood clots. Med: Amlodipine, losartan Medical History: Reviewed Medications: Reviewed Surgical History: Reviewed Allergies: Reviewed Social History: No tobacco/EtOH use. Lives at home with his . currently ill with COVID in [facility]. Denies recreational substance use Code Status: Full Code Principal Diagnosis COVID 19 pneumonia Acute hypoxic respiratory failure Ventilatory dependent respiratory failure s/p tracheostomy Critical illness myopathy Gouty arthritis Parenchymal cerebral hemorrhage, resolved Hypertension Discharge Exam Constitutional well developed, + obese, cooperative and comfortable; no acute distress Neck trachea midline, no thyromegaly + tracheostomy present Respiratory normal respiratory effort and + cough; no respiratory distress, no labored breathing and does not use accessory muscles Auscultation: no crackles, no rales, no rhonchi and no wheezes Cardiovascular RRR, no murmur, no edema Gastrointestinal (Abdomen) normal bowel sounds, soft, nontender, no hepatosplenomegaly Musculoskeletal Head/Neck/Chest: normocephalic, head atraumatic and neck supple Extremities: extremities normal to inspection and + abnormal strength (generalized weakness, can move all four extremities); no cyanosis, no clubbing and no petechiae Skin no rashes, warm and dry Neurologic normal touch/pain/proprioception, CN's II-XI intact bilaterally, moves all extremities and awake; no focal motor deficits Speech / Cognition: normal speech (communicating well with PM valve) Motor/Sensory: no tremor and no fasciculations Psychiatric A+Ox3, euthymic affect Discharge Data Allergies Allergy/AdvReac Type Severity Reaction Status Date / Time allopurinol AdvReac Unknown Elevated Verified 03/20/21 15:29 liver panels. morphine AdvReac Unknown slows Verified 03/20/21 15:29 heart rate Consultations 03/20/21 14:48 ED Decision to Admit Stat 03/21/21 08:15 Consult Pulmonology Routine 03/27/21 08:27 Consult Diet Aid Stat 04/13/21 08:27 Consult Palliative Care Routine 04/14/21 07:32 Consult Neurology Routine 04/29/21 12:53 Burn CD for patient Stat Ordered Studies 03/28/21 10:12 US point of care ultrasound Urgent 04/02/21 09:35 CT head/brain wo con Urgent 04/06/21 09:50 US venous doppler LE BI Routine 04/07/21 17:32 MR brain wo con Urgent 04/09/21 08:52 CT abd pelvis IV con only Urgent CT chest diagnostic w con Urgent 04/09/21 08:56 MR cervical spine wo/w con Urgent MR lumbar spine wo/w con Urgent MR thoracic spine wo/w con Urgent 04/09/21 22:24 US point of care ultrasound Routine 04/13/21 15:31 CT head/brain wo con Urgent 04/13/21 21:30 CT head/brain wo con Urgent 04/14/21 07:54 CT head/brain wo con Routine 04/14/21 10:19 MR angio head wo con Routine MR brain wo con Routine Hospital Course (1) Acute respiratory failure with hypoxia: due to COVID 19 pneumonia, bilateral infiltrates on CXR Was requiring prone positioning and BiPAP while awake, but then weaned down to wall high flow nasal cannula at 11-15 L on 03/23 However, on 03/24 worsened again was placed back on Vapotherm high flow nasal cannula On 03/25, requiring higher amounts of oxygen at 40 L and up to 80 % FiO2 to maintain pulse ox 90-91% On 03/26 switched to Ventilator HFNC at 60L, 100% FiO2 to keep POx>88%---> continued to decompensate on the morning of 03/27 and was intubated and proned He was not a candidate for ECMO Previously had pneumomediastinum which is now resolved Status post tocilizumab on 03/21 Completed a course of high-dose dexamethasone initially with 10 mg daily and then on 03/28, increased to 20 mg daily x5 days, then 10 mg daily x5 days Now status post tracheostomy on 04/05-now tolerating trach collar Tracheostomy tube was downsized to a size 6 on 04/22 NG tube removed on 04/20 and is tolerating a regular diet after speech therapy evaluation Klonopin q12 is now discontinued as of 04/19, but with some withdrawal symptoms and anxiety on 04/23-added lorazepam 0.5 mg p.o. every 8 hours as needed for anxiety-he has not yet used a dose Oxycodone PRN for opiate withdrawal or pain For insomnia-added magnesium, Ambien as needed which is helping removing fluid with Lasix IV daily, can change to Lasix 40mg PO daily, continue until euvolemic doing really well, no ventilator support for over 5 days transfer to [facility] (2) Pneumonia due to COVID-19 virus: completed treatment with dexamethasone received Tocilizumab removed from neg pressure isolation 04/15 (3) AMS (altered mental status): With acute encephalopathy-now resolved since 04/17 he is oriented, following commands, visiting with family, is getting out of bed to chair every day Was secondary to ICU delirium, hypernatremia, fevers, infection, elevated ammonia-all now resolved Also did have a small parenchymal hemorrhage which was stable on repeat imaging Continue treating lung abscess with levofloxacin and metronidazole, last dose 05/05 (4) Fever: Now completely resolved Secondary to group C beta strep bacterial pneumonia Blood cultures positive on 04/09 for coagulase-negative Staphylococcus in 1/2 sets-likely contaminant Blood cultures 04/10-negative Also suspected acute sinusitis/large mastoid effusions seen on MRI brain With right lung abscess on CT chest on 04/09--negative AFB, culture no growth to date right pleural effusion - thoracentesis, pleural culture negative Central and arterial lines were removed and replaced with peripheral IVs Dopplers of lower extremities negative for DVT CT chest/abdomen/pelvis significant for lung abscess, necrotizing pancreatitis but lipase normal MRIs of cervical/thoracic/lumbar spine without epidural abscess or discitis MRSA swab remains negative echo: EF 70%, no vegetations, normal valves -Plan to continue Levaquin and Flagyl for lung abscess x4-week course-was started 04/07, last date of treatment will be 05/05/2021 -Will need follow-up chest imaging in 1-2 weeks, CT chest sent CD with last CT chest for comparison (5) Cerebral parenchymal hemorrhage: new finding on CT head on 04/13 small, 5mm area right parietal lobe, also with trace subarachnoid hemorrhage left frontal lobe repeat head CT 04/13 and 04/14 with stable hemorrhage neurology consulted, likely bleed in setting of hypertension, Lovenox MRI brain and MRA brain on 04/14: unchanged right 5mm parenchymal hemorrhage, normal angiography no further imaging planned unless mental status changes Has since been restarted on SQ Lovenox (6) Bradycardia: with sinus terry initially while on BIPAP prior to intubation HR dropped to 20's on 04/12, required atropine, pacer pads on stopped metoprolol due to frequent pauses Has had some significant sinus pauses at times which have now been resolved from a long time (7) SVT (supraventricular tachycardia): Had SVT to the 200s on the evening of 04/07 with associated hypotension requiring esmolol, amiodarone, adenosine x3, synchronized cardioversion x5 Also had further atrial fibrillation on 04/07 and again on the night of 04/09 Now back in normal sinus rhythm ever since stopped metoprolol 25mg BID due to long sinus pauses Continue to replace electrolytes as needed-giving potassium along with IV Lasix to keep K above 4 (8) Hypertension: Had significant hypertension which likely led to cerebral parenchymal hemorrhage as above Blood pressures are now much significantly improved since restarting home losartan 100 mg p.o. once daily, continuing amlodipine 10 mg daily Continue diuresing with IV Lasix, change to PO Lasix on discharge, continue until euvolemic (9) Hypokalemia: Improved, continue to replace potassium chloride to keep K above 4 while diuresing with IV Lasix Follow BMP (10) BPH loc w urin obs/LUTS: Rogers catheter remains in place Diuresing in the setting of anasarca Will need to remove Rogers catheter once he is more mobile (11) Lung abscess: As above Status post aspiration cultures-no growth Continue levofloxacin, metronidazole for 4 weeks total, last dose 05/05 Chest x-ray 04/23 still with some loculated pleural effusion on the right Follow chest CT in 1-[address] chest on for comparison (12) Pancreatitis: Visualized on CT of the abdomen with suspected necrotizing pancreatitis Lipase normal, triglycerides improving but were never severely elevated No abdominal pain Continues on low-fat diet (13) Gout: still c/o pain responded well to Prednisone 20mg x 1 and Colchicine 1.2mg on 04/26 continue the Prednisone for another few days, got 10mg on 04/28 (14) Paroxysmal atrial fibrillation: Had intermittent rapid atrial fibrillation when he was critically ill and on the ventilator-this has now been resolved for many days No need for long-term anticoagulation at this point especially in the setting of subarachnoid hemorrhage which occurred also during time of critical illness Continue telemetry monitoring (15) Hip pain: Right hip pain and sciatica developed on 04/23-pain is improved now with repositioning oxycodone Continue to reposition, needs mobilization and PT Give oxycodone as needed (16) Anxiety: Likely secondary to benzodiazepine withdrawal-his clonazepam was discontinued on 04/19 Started lorazepam 0.5 mg p.o. every 8 hours as needed for anxiety (17) Anemia: Hemoglobin remains low but stable at 8.7, normocytic Now with developing reactive thrombocytosis with platelets in the 400s-500s Most likely iron deficiency Iron studies show transferrin saturation 17% Start Venofer 300 mg IV daily x3 doses Follow CBC DVT prophylaxis: SCD, Lovenox defer to physician at [facility] on further DVT prophylaxis Disposition: transfer to [facility] CODE STATUS: conditional code, does not want compressions Total Time Total Time Spent Total Time Spent (In Minutes): 40 Total Time Includes: Examination of the Patient, Discharge Planning and Medication Reconciliation Discharge Plan Discharge Items Patient Disposition: Trans Resident Long-Term Care Reason For Visit: COVID PNA WITH HYPOXIA, ROSARIO Discharge Diagnosis: COVID pneumonia Ventilator dependent respiratory failure s/p tracheostomy Critical illness myopathy, weakness Condition on Discharge: Good Goals: improve strength, mobility ultimate goal is to get back home wean off of tracheostomy Activity: Per Instructions section Activity Comment: increase activity with therapy, as tolerated Non-emergency contact: Primary Care Provider Call non-emergency contact if: you have any medication questions Follow-up/Referrals: Tona Donahue [Primary Care Provider] - Diet: Regular Diet Texture: Pureed (blended smooth) Addtl Attending Provider Instructions: Medications: - LEVOFLOXACIN and METRONIDAZOLE: continue each for 6 more days to complete 4 weeks total treatment - LOVENOX: 40mg daily, defer to accepting physician DVT prophylaxis - LORAZEPAM: as needed for anxiety - OXYCODONE: as needed for pain - PROTONIX: 40mg twice a day for next 2 weeks then could decrease to once a day going forward - SENOKOT: take as needed for constipation - LASIX: 40mg daily in the morning to remove fluid will include discharge summary with full details of admission and will call physician with sign out has been off ventilatory support since Monday 04/23 in the evening, doing well very weak, critical illness myopathy, hospitalized for 40 days, tracheostomy in place contact is his Halle [phone] Pending Studies at Discharge: No Stand-Alone Forms: My [facility] Skilled Items Patient informed of condition?: Yes DNR: No Discharge Level of Care: Other Communicable Disease: No Discharge Prognosis: Improving Lines: Peripheral IV Urinary Catheter: Yes Medications and DC Order Prescriptions: New lorazepam 0.5 mg Tablet 0.5 mg PO Q8H PRN (Reason: anxiety) 10 Days Qty: 20 RF: 0 oxycodone 5 mg Tablet 5 mg PO Q6H PRN (Reason: pain) 10 Days Qty: 20 RF: 0 sennosides [Senokot] 8.6 mg Tablet 17.2 mg PO DAILY PRN (Reason: constipation) 30 Days Qty: 60 RF: 0 magnesium oxide 400 mg (241.3 mg magnesium) Tablet 400 mg PO QPM 30 Days Qty: 30 RF: 1 pantoprazole 40 mg Tablet,Delayed Release (Dr/Ec) 40 mg PO BID 30 Days Qty: 60 RF: 1 metronidazole 500 mg Tablet 500 mg PO Q8H 6 Days Qty: 18 RF: 0 levofloxacin 750 mg Tablet 750 mg PO QAM 6 Days Qty: 6 RF: 0 enoxaparin 40 mg/0.4 mL Syringe 40 mg subcut QAM 30 Days Qty: 12 RF: 0 furosemide [Lasix] 40 mg tablet 40 mg PO DAILY Qty: 30 RF: 0 Continued losartan 100 mg tablet 100 mg PO DAILY RF: 0 amlodipine 10 mg tablet 10 mg PO DAILY RF: 0 Discontinued solifenacin [Vesicare] 10 mg tablet 10 mg PO DAILY Qty: 30 RF: 2 prednisone 20 mg tablet 20 mg PO DAILY RF: 0 mupirocin 2 % ointment 1 applic topical UD RF: 0 Discharge Orders: Discharge Order (Routine); Ordered 04/29/21 Ordered By: Fco Llanos Admission Data Admit Date/Time: 03/20/21 15:26 Attending Provider: Fco Llanos Admit Provider: Mick Perez Primary Care Provider: Tona Donahue Other Providers: [facility] ; [facility] ; Mick Perez ; Lenin Montes ; Rebel Wall ; Jazmin Sanchez ; Rebel Marina ; Isaias Ferrara ; Leanna Ennis ; Diane Beaver Other Interventions: Discharge Summary Assessment (RN) Last Done: 04/29/21 13:33 Coding Level of Care Code D/C DAY MANAGEMENT >30 MINS Diagnoses Acute respiratory failure with hypoxia J96.01 Pneumonia due to COVID-19 virus U07.1; J12.82 AMS (altered mental status) R41.82 Fever R50.9 Cerebral parenchymal hemorrhage I61.9 Bradycardia R00.1 SVT (supraventricular tachycardia) I47.1 Hypertension I10 Hypokalemia E87.6 BPH loc w urin obs/LUTS N40.1 Lung abscess J85.2 Pancreatitis K85.90 Gout M10.9 Paroxysmal atrial fibrillation I48.0 Hip pain M25.559 Anxiety F41.9 Anemia D64.9
== END 2021-04-29 14:00 | DRG 4 ==
LOC: ED 12:03 → 2E 15:26 → SUATTDRO 15:26 → 2E 16:09 → 1E 03-27 08:23